=== PATIENT | female | born 1945 | race Caucasian/White ===

== ENCOUNTER → 2016-05-16 | Outpatient (CLI) | payer MEDICARE, MEDICAID ==
[~2016-05-16] MED LIST: ACHD5005 PO; ALPR0.5T PO; AMLO5TAB2 PO; CPR500T PO; DEXL60CA PO; LISI1TAB6 PO; LORA10TA7 PO; METR500T PO; OXYC-471 PO; PANT40TA3 PO; PRED10TA22 PO; RT-ALBUINH IH; UMEC1BLS IH; [UNRECOGNIZED DRUG - OTHER] PO
[2016-05-16 17:06] LABS: BASOPHILS % (AUTO) 1 % (0-10); EOSINOPHILS # (AUTO) 0.3 10^3/uL (0.0-0.3); EOSINOPHILS % (AUTO) 4 % (0-10); LYMPHOCYTES # (AUTO) 2.2 X 10^3 (1.0-4.0); LYMPHOCYTES % (AUTO) 31 % (12-44); MEAN CORPUSCULAR HEMOGLOBIN 30 PG (25-34); MEAN CORPUSCULAR HGB CONC 32 G/DL (32-36); MEAN CORPUSCULAR VOLUME 93 FL (80-99); MEAN PLATELET VOLUME 10.2 FL (7.4-10.4); MONOCYTES # (AUTO) 0.8 X 10^3 (0.0-1.0); MONOCYTES % (AUTO) 11 % (0-12); NEUTROPHILS # (AUTO) 3.9 X 10^3 (1.8-7.8); NEUTROPHILS % (AUTO) 54 % (42-75); PLATELET COUNT 213 10^3/uL (130-400); RED BLOOD COUNT 3.89 10^6/uL (4.35-5.85); RED CELL DISTRIBUTION WIDTH 15.8 % (10.0-14.5); WHITE BLOOD COUNT 7.1 10^3/uL (4.3-11.0)
[2016-05-16 17:26] LABS: ALANINE AMINOTRANSFERASE 38 U/L (0-55); ALBUMIN 3.8 G/DL (3.2-4.5); ANION GAP 9 MMOL/L (5-14); ASPARTATE AMINO TRANSFERASE 31 U/L (5-34); BILIRUBIN,TOTAL 0.3 MG/DL (0.1-1.0); BLOOD UREA NITROGEN 13 MG/DL (7-18); BUN/CREATININE RATIO 17; CALCIUM 8.8 MG/DL (8.5-10.1); CARBON DIOXIDE 31 MMOL/L (21-32); CHLORIDE 97 MMOL/L (98-107); CHOLESTEROL 231 MG/DL (< 200); CREATININE SERUM 0.77 MG/DL (0.60-1.30); DIRECT LDL 146 MG/DL (1-129); GFR ESTIMATED > 60; GLUCOSE 103 MG/DL (70-105); SODIUM 137 MMOL/L (135-145); TOTAL PROTEIN 6.4 G/DL (6.4-8.2); TRIGLYCERIDES 277 MG/DL (<150); VLDL CHOLESTEROL 55 MG/DL (5-40)
== END ==
LOC: HH 15:15
PROVIDERS: ATTEND Family Medicine
DX: E78.5 Hyperlipidemia, unspecified (principal); I50.9 Heart failure, unspecified; K57.92 Diverticulitis of intestine, part unspecified, without perforation or abscess without bleeding
CPT/HCPCS: 80053; 80061; 83880; 85025

== ENCOUNTER → 2016-06-15 | Outpatient (CLI) | payer MEDICARE, MEDICAID ==
--- NOTE | 2016-06-15 16:47 | Diagnostic Imaging Report ---
PA and lateral views of the chest. INDICATION: Pneumonia. COMPARISON: 04/27/2016. FINDINGS: The lungs are hyperinflated. No focal consolidation. There is cardiomegaly with interstitial thickening which may relate to minimal vascular congestion. No effusion or pneumothorax. The mediastinum and alberto appear unremarkable. No significant change from 04/27/2016. IMPRESSION: COPD. Cardiomegaly with prominent interstitial markings similar to 04/27/2016 exam, which may relate to mild vascular congestion. Dictated by: Dictated on workstation # [id number]
== END ==
LOC: RAD 10:43
PROVIDERS: ATTEND Nurse Practitioner Family
DX: J18.9 Pneumonia, unspecified organism (principal); J96.20 Acute and chronic respiratory failure, unspecified whether with hypoxia or hypercapnia; F17.201 Nicotine dependence, unspecified, in remission
CPT/HCPCS: 71020

== ENCOUNTER → 2016-07-04 | Outpatient (CLI) | payer MEDICARE, MEDICAID ==
[~2016-07-04] MED LIST changes: +RT-ALBUTEROL SULF 2.5 MG/3 ML PRE-MIX VIAL INH ONE
== END ==
LOC: RT 09:07
PROVIDERS: ATTEND Nurse Practitioner Family
DX: J45.909 Unspecified asthma, uncomplicated (principal); J96.20 Acute and chronic respiratory failure, unspecified whether with hypoxia or hypercapnia
CPT/HCPCS: 94060; 94640; 94726; 94729

== ENCOUNTER → 2017-01-04 | Outpatient (CLI) | payer MEDICARE, MEDICAID ==
[~2017-01-04] MED LIST changes: -RT-ALBUTEROL SULF 2.5 MG/3 ML PRE-MIX VIAL INH ONE
[2017-01-04 16:25] LABS: ALANINE AMINOTRANSFERASE 27 U/L (0-55); ALBUMIN 3.8 GM/DL (3.2-4.5); ANION GAP 11 MMOL/L (5-14); ASPARTATE AMINO TRANSFERASE 23 U/L (5-34); BILIRUBIN,TOTAL 0.2 MG/DL (0.1-1.0); BLOOD UREA NITROGEN 13 MG/DL (7-18); BUN/CREATININE RATIO 17; CALCIUM 9.1 MG/DL (8.5-10.1); CARBON DIOXIDE 30 MMOL/L (21-32); CHLORIDE 101 MMOL/L (98-107); CREATININE SERUM 0.78 MG/DL (0.60-1.30); GFR ESTIMATED > 60; GLUCOSE 95 MG/DL (70-105); POTASSIUM 3.6 MMOL/L (3.6-5.0); SODIUM 142 MMOL/L (135-145); TOTAL PROTEIN 6.5 GM/DL (6.4-8.2)
== END ==
LOC: HH 15:54
PROVIDERS: ATTEND Family Medicine
DX: E11.9 Type 2 diabetes mellitus without complications (principal)
CPT/HCPCS: 80053

== ENCOUNTER 2018-01-13 10:30 | Emergency (ER) | payer MEDICARE, MEDICAID ==
[~2018-01-13] VITALS: Ht 162.6 cm; Wt 101.2 kg
[~2018-01-13 10:30] MED LIST changes: -AMLO5TAB2 PO; +AMLO5TAB7 PO
--- OUTSIDE RECORDS SUMMARY | 2018-01-13 10:53 | XMS REPORT | CCD ---
Author Author MAURO NUÑEZ Unknown Address [address] [facility] [address] [place] [address] Care Team Providers Care Reconciliation Clerk Name Role Phone [facility] ARNOLDO DO Attphys ASTUDILLO, BRITTANIE DO Prisurg G., EDU NASST H., ARTEMIO NASST G., RUDDY NASST H., EZEQUIEL NASST D., CHANDA T NASST A., MAGALYS NASST F., JAYDA NASST S., BERNARDINO NASST C., AN L NASST L., KAREL H NASST R., ISREAL Moreno NASST B., KURTIS NASST Allergies Allergy Code Allergy Type Reaction Status [facility] [id number] Drug allergy OTHER; VOMITTING Active Active Medications Medication Code Dose Units Frequency Route Modification Start Date/Time Albuterol 0.09MG/Actuation Inhalation Aerosol Powder 02706645741 1 EACH NEEDED INHALATION 03/24/2016 13: 22 Prescription Detail 1 EACH INHALATION NEEDED Dexilant 60MG Oral Capsule, Delayed Release [id number] 60 MILLIGRAMS DAILY ORAL 03/24/2016 13:22 Prescription Detail 60 MILLIGRAMS ORAL DAILY diazePAM 5MG Oral Tablet 718413 5 MILLIGRAMS NEEDED EVERY 12 H ORAL 03/24/2016 13:22 Prescription Detail 5 MILLIGRAMS ORAL NEEDED EVERY 12 H Ipratropium [place]-Albuterol Sulfate 0.5MG/3ML-3MG/3ML Inhalation Solution 2618541 1 EACH NEEDED INHALATION 03/24/2016 13:22 Prescription Detail 1 EACH INHALATION NEEDED Lisinopril/hydroCHLOROthiazide 10MG-12.5MG Oral Tablet 652517 1 EACH DAILY ORAL 03/24/2016 13:22 Prescription Detail 1 EACH ORAL DAILY Percocet 5MG-325MG Oral Tablet 9630101 1 EACH NEEDED EVERY 6 HR ORAL 03/24/2016 13:22 Prescription Detail 1 EACH ORAL NEEDED EVERY 6 HR Azithromycin 250MG Oral Tablet 437124 1 TABLET DAILY BY MOUTH 03/24/2016 09:57 Prescription Detail 1 TABLET BY MOUTH DAILY x5 days predniSONE 20MG Oral Tablet 231383 40 MILLIGRAMS DAILY BY MOUTH 03/24/2016 09:57 Prescription Detail 40 MILLIGRAMS BY MOUTH DAILY taper, 40 day 1, 30 day 2, 20, 10, then stop Problems Problem Code Start Date Resolved Date Status Respiratory failure with hypoxia 428376508 03/22/2016 Active Right middle lobe pneumonia 570323353 03/22/2016 Active Syncopes 720692389 03/22/2016 Active Procedures Procedure Code Procedure Type Date US CAROTID DUPLEX COMP/CHAR 55810353 SNOMED CT 03/22/2016 US ECHO 2D COMP WITH DOPP AND COLOR 75468887 SNOMED CT CX CHEST [address] 03/22/[address] 03/24/2016 COMPREHENSIVE METABOLIC PANEL 822684090 SNOMED CT 2015 CBC W/ AUTO DIFF (RFLX MAN DIFF IF IND) 0684667 SNOMED CT 03/24/2016 LACTIC ACID 9984355 SNOMED [address] 03/22/[address] 03/23/2016 LIPID PANEL 27331155 SNOM[address] 03/23/[address] 03/23/2016 COMPREHENSIVE METABOLIC PANEL 499490568 SNOMED CT 2015 CBC W/ AUTO DIFF (RFLX MAN DIFF IF IND) 3743360 SNOMED CT 03/23/2016 LACTIC ACID 1822386 SNOMED [address] 03/22/2016 LACTIC AC[address] 7480786 [address] 03/22/2016 CULTURE BLOOD 07391069 SNOMED CT 03/22/2016 C REACTIVE PROTEIN 70675387 SNOMED CT 03/22/[address] 03/22/2016 UA ROUTINE C&S IF IND 757410799 SNOMED CT 03/22/2016 TROPONIN-I ADV 793165093 SNOMED CT 03/22/[address] 03/22/2016 COMPREHENSIVE METABOLIC PANEL 748597687 SNOMED CT 2015 CBC W/ AUTO DIFF (RFLX MAN DIFF IF IND) 9322429 SNOMED CT 03/22/2016 PT EVALUATION 199347194 SNOMED CT 03/23/2016 HOME O2 945068470 SNOM[address] 03/24/2016 ^CBC W/AUTO DIFF 4782813 SNOMED CT 03/24/2016 ^CBC W/AUTO DIFF 6220834 SNOMED CT 03/23/2016 ^UA WITH MICRO 709750979 SNOMED CT 03/22/2016 ^CBC W/AUTO DIFF 9153995 SNOMED CT 03/22/2016 PULSE OX EXERCISE 563505046 SNOMED CT 03/24/2016 BAN AERO ECLIPSE TREATMENT 02931333 SNOMED CT 03/24/2016 BAN AERO ECLIPSE TREATMENT 59669558 SNOMED CT 03/24/2016 BAN AERO ECLIPSE TREATMENT 64099085 SNOMED CT 03/23/2016 BAN AERO ECLIPSE TREATMENT 88284107 SNOMED CT 03/23/2016 BAN AERO ECLIPSE TREATMENT 00145353 SNOMED CT 03/23/2016 BAN AERO ECLIPSE TREATMENT 71588565 SNOMED CT 03/23/2016 BAN AERO ECLIPSE TREATMENT 00677001 SNOMED CT 03/22/2016 BAN AERO ECLIPSE TREATMENT 45269389 SNOMED CT 03/22/2016 BAN AERO ECLIPSE TREATMENT 54345710 SNOMED CT 03/22/2016 Results COMPREHENSIVE METABOLIC PANEL - Collect Date/Time: 03/24/2016 06:55 Test Name Code Test Result Test Units Test Ref Range GLUCOSE 2345-7 90 MG/DL L=70 H=100 SODIUM 2951-2 146 MEQ/L L=135 H=148 POTASSIUM 2823-3 3.9 MEQ/L L=3.5 H=5.3 CHLORIDE 2075-0 103 MEQ/L L=96 H=110 CO2 2028-9 31 MEQ/L L=22 H=29 BUN 3094-0 15 MG/DL L=8 H=22 CREATININE 2160-0 0.8 MG/DL L=0.6 H=1.6 SGOT/AST 1920-8 14 IU/L L=10 H=40 SGPT/ALT 1742-6 16 IU/L L=8 H=54 ALK PHOS 6768-6 64 IU/L L=35 H=115 TOTAL PROTEIN 2885-2 6.1 G/DL L=5.5 H=8.5 ALBUMIN 1751-7 3.6 G/DL L=3.1 H=5.4 TOTAL BILI 1975-2 0.2 MG/DL L=0.0 H=1.5 CALCIUM 10706-6 8.5 MG/DL L=8.2 H=10.6 AGE 58894-6 70 yrs GFR NonAA 08593-5 71 GFR AA 77195-1 86 eGFR 34030-9 >60 N/A eGFR AA* 97946-6 >60 N/A COMPREHENSIVE METABOLIC PANEL - Collect Date/Time: 03/23/2016 06:05 Test Name Code Test Result Test Units Test Ref Range GLUCOSE 2345-7 117 MG/DL L=70 H=100 SODIUM 2951-2 143 MEQ/L L=135 H=148 POTASSIUM 2823-3 3.6 MEQ/L L=3.5 H=5.3 CHLORIDE 2075-0 102 MEQ/L L=96 H=110 CO2 2028-9 30 MEQ/L L=22 H=29 BUN 3094-0 16 MG/DL L=8 H=22 CREATININE 2160-0 0.8 MG/DL L=0.6 H=1.6 SGOT/AST 1920-8 16 IU/L L=10 H=40 SGPT/ALT 1742-6 16 IU/L L=8 H=54 ALK PHOS 6768-6 70 IU/L L=35 H=115 TOTAL PROTEIN 2885-2 6.0 G/DL L=5.5 H=8.5 ALBUMIN 1751-7 3.5 G/DL L=3.1 H=5.4 TOTAL BILI 1975-2 0.2 MG/DL L=0.0 H=1.5 CALCIUM 66789-4 8.6 MG/DL L=8.2 H=10.6 AGE 42246-2 70 yrs GFR NonAA 82398-6 71 [place]FR [place] 675[address]-0 86 eGFR 08817-2 >60 N/A eGFR AA* 20895-6 >60 N/A COMPREHENSIVE METABOLIC PANEL - Collect Date/Time: 03/22/2016 11:05 Test Name Code Test Result Test Units Test Ref Range GLUCOSE 2345-7 114 MG/DL L=70 H=100 SODIUM 2951-2 140 MEQ/L L=135 H=148 POTASSIUM 2823-3 3.6 MEQ/L L=3.5 H=5.3 CHLORIDE 2075-0 99 MEQ/L L=96 H=110 CO2 2028-9 28 MEQ/L L=22 H=29 BUN 3094-0 12 MG/DL L=8 H=22 CREATININE 2160-0 0.8 MG/DL L=0.6 H=1.6 SGOT/AST 1920-8 23 IU/L L=10 H=40 SGPT/ALT 1742-6 21 IU/L L=8 H=54 ALK PHOS 6768-6 88 IU/L L=35 H=115 TOTAL PROTEIN 2885-2 7.1 G/DL L=5.5 H=8.5 ALBUMIN 1751-7 4.2 G/DL L=3.1 H=5.4 TOTAL BILI 1975-2 0.3 MG/DL L=0.0 H=1.5 CALCIUM 93679-6 9.1 MG/DL L=8.2 H=10.6 AGE 70 yrs GFR NonAA 71 GFR AA 86 eGFR >60 N/A eGFR AA* >60 N/A LIPID PANEL - Collect Date/Time: 03/23/2016 06:05 Test Name Code Test Result Test Units Test Ref Range TRIGLYCERIDES 3043-7 161 MG/DL L=0 H=135 CHOLESTEROL 2093-3 214 MG/DL L=0 H=199 HDL 2085-9 39 MG/DL L=29 H=89 TOT CHOL/HDL 03107-3 5.5 L=0.0 H=5.0 LDL (CALC) 31341-8 143 MG/DL L=0 H=129 MAGNESIUM - Collect Date/Time: 03/24/2016 06:55 Test Name Code Test Result Test Units Test Ref Range MAGNESIUM 52572-8 2.2 MG/DL L=1.7 H=2.8 MAGNESIUM - Collect Date/Time: 03/23/2016 06:05 Test Name Code Test Result Test Units Test Ref Range MAGNESIUM 88882-2 2.1 MG/DL L=1.7 H=2.8 MAGNESIUM - Collect Date/Time: 03/22/2016 11:05 Test Name Code Test Result Test Units Test Ref Range MAGNESIUM 08957-4 2.2 MG/DL L=1.7 H=2.8 CBC W/ AUTO DIFF (RFLX MAN DIFF IF IND) - Collect Date/Time: 03/24/2016 06:55 Test Name Code Test Result Test Units Test Ref Range WBC 08810-0 12.5 TH/CMM L=4.5 H=10.8 RBC 789-8 4.20 ML/CMM L=4.20 H=5.40 HGB 718-7 11.9 G/DL L=12.0 H=16.0 HCT 4544-3 39.5 % L=37.0 H=47.0 MCV 13461-8 94 FL L=81 H=99 MCH 37037-7 28.3 PG L=27.0 H=33.0 MCHC 30203-4 30.1 G/DL L=31.0 H=36[place] [address]-9 51 FL L=36 H=50 [place] [address]85-6 14.9 % L=0.0 H=14.8 MPV 26685-3 9.4 FL L=9.3 H=12.5 PLT 777-3 282 TH/CMM L=130 H=440 NRBC# 96677-8 0.00 TH/CMM L=0.00 H=0.00 NRBC% 21439-8 0.0 /100WBC L=0.0 H=2.0 %NEUT 53050-8 70.0 % %LYMP 41842-9 20.0 % %MONO 92861-3 7.7 % %EOS 45624-4 0.8 % %BASO 26280-4 0.5 % #NEUT 18161-3 8.74 TH/CMM L=2.10 H=8.20 #LYMP 31083-0 2.50 TH/CMM L=0.90 H=5.20 #MONO 81926-3 0.96 TH/CMM L=0.16 H=1.00 #EOS 48399-2 0.10 TH/CMM L=0.00 H=0.80 #BASO 38879-9 0.06 TH/CMM L=0.00 H=0.20 MANUAL DIFF 87021-1 NOT IND N/A CBC W/ AUTO DIFF (RFLX MAN DIFF IF IND) - Collect Date/Time: 03/23/2016 06:05 Test Name Code Test Result Test Units Test Ref Range WBC 75795-7 11.5 TH/CMM L=4.5 H=10.8 RBC 789-8 4.12 ML/CMM L=4.20 H=5.40 HGB 718-7 11.8 G/DL L=12.0 H=16.0 HCT 4544-3 38.4 % L=37.0 H=47.0 MCV 30908-3 93 FL L=81 H=99 MCH 26878-4 28.6 PG L=27.0 H=33.0 MCHC 36347-6 30.7 G/DL L=31.0 H=36.0 [place] [address]-4 49 FL L=36 H=50 [place] [address]-9 14.4 % L=0.0 H=14.8 MPV 11059-0 9.6 FL L=9.3 H=12.5 PLT 777-3 276 TH/CMM L=130 H=440 NRBC# 36640-8 0.00 TH/CMM L=0.00 H=0.00 NRBC% 75913-5 0.0 /100WBC L=0.0 H=2.0 %NEUT 47044-4 78.7 % %LYMP 22565-8 13.6 % %MONO 24366-5 6.5 % %EOS 74063-5 0.1 % %BASO 61103-2 0.4 % #NEUT 79358-2 9.01 TH/CMM L=2.10 H=8.20 #LYMP 21017-0 1.56 TH/CMM L=0.90 H=5.20 #MONO 54536-3 0.74 TH/CMM L=0.16 H=1.00 #EOS 40042-7 0.01 TH/CMM L=0.00 H=0.80 #BASO 30343-7 0.05 TH/CMM L=0.00 H=0.20 MANUAL DIFF 31764-1 NOT IND N/A CBC W/ AUTO DIFF (RFLX MAN DIFF IF IND) - Collect Date/Time: 03/22/2016 11:05 Test Name Code Test Result Test Units Test Ref Range WBC 73992-6 10.8 TH/CMM L=4.5 H=10.8 RBC 789-8 4.82 ML/CMM L=4.20 H=5.40 HGB 718-7 13.7 G/DL L=12.0 H=16.0 HCT 4544-3 44.2 % L=37.0 H=47.0 MCV 92 FL L=81 H=99 MCH 28.4 PG L=27.0 H=33.0 MCHC 31.0 G/DL L=31.0 H=36.0 RDW SD 48 FL L=36 H=50 RDW CV 14.3 % L=0.0 H=14.8 MPV 9.2 FL L=9.3 H=12.5 PLT 777-3 295 TH/CMM L=130 H=440 NRBC# 0.00 TH/CMM L=0.00 H=0.00 NRBC% 0.0 /100WBC L=0.0 H=2.0 %NEUT 72.1 % %LYMP 18.3 % %MONO 6.9 % %EOS 1.4 % %BASO 0.8 % #NEUT 7.78 TH/CMM L=2.10 H=8.20 #LYMP 1.98 TH/CMM L=0.90 H=5.20 #MONO 0.75 TH/CMM L=0.16 H=1.00 #EOS 0.15 TH/CMM L=0.00 H=0.80 #BASO 0.09 TH/CMM L=0.00 H=0.20 MANUAL DIFF NOT IND N/A UA ROUTINE C&S IF IND - Collect Date/Time: 03/22/2016 11:20 Test Name Code Test Result Test Units Test Ref Range COLOR YELLOW N/A NL: YELLOW APPEARANCE CLEAR N/A NL: CLEAR SPEC GRAV 1.015 N/A NL: 1.002 - 1.022 pH 7.0 N/A NL: 5 - 9 PROTEIN NEGATIVE N/A NL: NEGATIVE mg/dl GLUCOSE NEGATIVE N/A NL: NEGATIVE mg/dl KETONE NEGATIVE N/A NL: NEGATIVE mg/dl BILIRUBIN NEGATIVE N/A NL: NEGATIVE BLOOD TRACE-LYSED N/A NL: NEGATIVE NITRITE NEGATIVE N/A NL: NEGATIVE LEUK SCREEN NEGATIVE N/A NL: NEGATIVE MICRO INDICATED? SEE BELOW N/A WBC/HPF NEGATIVE N/A NL: NEGATIVE RBC/HPF 0-5 N/A NL: NEGATIVE CASTS/LPF NEGATIVE N/A NL: NEGATIVE CRYSTALS NEGATIVE N/A NL: NEGATIVE MUCOUS THRDS NEGATIVE N/A NL: NEGATIVE BACTERIA NEGATIVE N/A NL: NEGATIVE EPITH CELLS 1+ SQUAMOUS N/A NL: NEGATIVE TRICHOMONAS NEGATIVE N/A NL: NEGATIVE YEAST NEGATIVE N/A NL: NEGATIVE CULT SET UP? NO N/A BNP - Collect Date/Time: 03/22/2016 11:05 Test Name Code Test Result Test Units Test Ref Range BNP 20780-2 15 PG/ML L=0 H=100 C REACTIVE PROTEIN - Collect Date/Time: 03/22/2016 11:05 Test Name Code Test Result Test Units Test Ref Range C REACTIVE PROTEIN 1988-5 3.5 MG/DL L=0.0 H= 1.0 TROPONIN-I ADV - Collect Date/Time: 03/22/2016 11:05 Test Name Code Test Result Test Units [place] [address]-7 <0.04 ng/mL L=0.04 H= 0.40 TSH - Collect Date/Time: 03/23/2016 06:05 Test Name Code Test Result Test Units Test Ref Range TSH 48046-0 0.99 mIU/L L=0.35 H=4.94 LACTIC ACID - Collect Date/Time: 03/22/2016 23:00 Test Name Code Test Result Test Units Test Ref Range LACTIC ACID 2524-7 3.2 mmol/L L=0.5 H=1.6 LACTIC ACID - Collect Date/Time: 03/22/2016 17:00 Test Name Code Test Result Test Units Test Ref Range LACTIC ACID 2524-7 1.3 mmol/L L=0.5 H=1.6 LACTIC ACID - Collect Date/Time: 03/22/2016 11:05 Test Name Code Test Result Test Units Test Ref Range LACTIC ACID 2524-7 2.1 mmol/L L=0.5 H=1.6 Function Status Unknown or Not Available. History of Immunizations Immunization Code Date pneumococcal polysaccharide PPV23 33 03/24/2016 influenza, injectable, quadrivalent, preservative free 150 2015 Plan of Treatment Unknown or Not Available. Social History Smoking Status Code Start Date End Date Former smoker 6738255 Vital Signs Vital Sign Value Unit Date/Time Recent/Initial? Weight Measured 206.8 [lb_av] 03/22/2016 13:10 Initial VS Height 65 [in_i] 03/22/2016 13:10 Initial VS BMI (Body Mass Index) 34.41 kg/m2 03/22/2016 13:10 Initial VS BSA (Body Surface Area) 2.07 m2 03/22/2016 13:10 Initial VS BP Systolic 149 mm[Hg] 03/22/2016 13:10 Initial VS BP Diastolic 81 mm[Hg] 03/22/2016 13:10 Initial VS Respiratory Rate 22 /min 03/22/2016 13:10 Initial VS Heart Rate 89 /min 03/22/2016 13:10 Initial VS O2 % BldC Oximetry 96 % 03/22/2016 13:10 Initial VS Body Temperature 97.1 [degF] 03/22/2016 13:10 Initial VS BP Systolic 167 mm[Hg] 03/24/2016 11:46 Most Recent VS BP Diastolic 96 mm[Hg] 03/24/2016 11:46 Most Recent VS Respiratory Rate 18 /min 03/24/2016 11:46 Most Recent VS Heart Rate 92 /min 03/24/2016 11:46 Most Recent VS O2 % BldC Oximetry 90 % 03/24/2016 11:46 Most Recent VS Body Temperature 96.9 [degF] 03/24/2016 11:46 Most Recent VS Function Status Unknown or Not Available. Goals Unknown or Not Available. ASSESSMENTS Unknown or Not Available. Health Concerns Section Unknown or Not Available.
--- OUTSIDE RECORDS SUMMARY | 2018-01-13 10:53 | XMS REPORT | CCD ---
Author Author MAURO NUÑEZ Unknown Address [address] [facility] [address] [place] [address] Care Team Providers Care Electronic Scale Subassembler Name Role Phone ANGELA AGUIAR DO Attphys Allergies Allergy Code Allergy Type Reaction Status [facility] 469297 Drug allergy OTHER; VOMITTING Active Active Medications Medication Code Dose Units Frequency Route Modification Start Date/Time Albuterol 0.09MG/Actuation Inhalation Aerosol Powder 129781 1 EACH NEEDED INHALATION 03/24/2016 13:22 Prescription Detail 1 EACH INHALATION NEEDED Dexilant 60MG Oral Capsule, Delayed Release 112541 60 MILLIGRAMS DAILY ORAL 03/24/2016 13:22 Prescription Detail 60 MILLIGRAMS ORAL DAILY diazePAM 5MG Oral Tablet 500517 5 MILLIGRAMS NEEDED EVERY 12 H ORAL 03/24/2016 13:22 Prescription Detail 5 MILLIGRAMS ORAL NEEDED EVERY 12 H Ipratropium [place]-Albuterol Sulfate 0.5MG/3ML-3MG/3ML Inhalation Solution 8539790 1 EACH NEEDED INHALATION 03/24/2016 13:22 Prescription Detail 1 EACH INHALATION NEEDED Lisinopril/hydroCHLOROthiazide 10MG-12.5MG Oral Tablet 267549 1 EACH DAILY ORAL 03/24/2016 13:22 Prescription Detail 1 EACH ORAL DAILY Percocet 5MG-325MG Oral Tablet 3389215 1 EACH NEEDED EVERY 6 HR ORAL 03/24/2016 13:22 Prescription Detail 1 EACH ORAL NEEDED EVERY 6 HR Azithromycin 250MG Oral Tablet 528656 1 TABLET DAILY BY MOUTH 03/24/2016 09:57 Prescription Detail 1 TABLET BY MOUTH DAILY x5 days predniSONE 20MG Oral Tablet 180301 40 MILLIGRAMS DAILY BY MOUTH 03/24/2016 09:57 Prescription Detail 40 MILLIGRAMS BY MOUTH DAILY taper, 40 day 1, 30 day 2, 20, 10, then stop Problems Problem Code Start Date Resolved Date Status Respiratory failure with hypoxia 409862142 03/22/2016 Active Right middle lobe pneumonia 674648121 03/22/2016 Active Syncopes 361990128 03/22/2016 Active Procedures Procedure Code Procedure Type Date CX CHEST 1 VIEW 308159349 [facility] 12/10/2016 BEDSIDE GLUCOSE 13759818 [facility] 12/10/2016 PHOSPHORUS 6328034 [facility] 12/10/2016 MAGNESIUM 863173833 [facility] 12/10/2016 LIPASE 40627108 [facility] 12/10/2016 CPK 118513593 [facility] 12/10/2016 LACTIC ACID 1302074 [facility] 12/10/2016 UA ROUTINE C&S IF IND [id number] [facility] 12/10/2016 TROPONIN-I ADV [id number] [facility] 12/10/2016 BNP 542387377 [facility] 12/10/2016 COMPREHENSIVE METABOLIC PANEL 624838484 [facility] 2016 CBC W/ AUTO DIFF (RFLX MAN DIFF IF IND) 9240395 [facility] 12/10/2016 ^CBC W/ MANUAL DIFF [id number] [facility] 12/10/2016 ^UA AUTO DIPSTICK ONLY [id number] [facility] 12/10/2016 Results BEDSIDE GLUCOSE - Collect Date/Time: 12/10/2016 13:55 Test Name Code Test Result Test Units Test Ref Range GLUCOSE POCT 228 MG/DL L=70 H=100 COMPREHENSIVE METABOLIC PANEL - Collect Date/Time: 12/10/2016 10:30 Test Name Code Test Result Test Units Test Ref Range GLUCOSE 2345-7 112 MG/DL L=70 H=100 SODIUM 2951-2 128 MEQ/L L=135 H=148 POTASSIUM 2823-3 7.2 MEQ/L L=3.5 H=5.3 CHLORIDE 2075-0 96 MEQ/L L=96 H=110 CO2 2028-9 20 MEQ/L L=22 H=29 BUN 3094-0 110 MG/DL L=8 H=22 CREATININE 2160-0 6.9 MG/DL L=0.6 H=1.6 SGOT/AST 1920-8 11 IU/L L=10 H=40 SGPT/ALT 1742-6 10 IU/L L=8 H=54 ALK PHOS 6768-6 63 IU/L L=35 H=115 TOTAL PROTEIN 2885-2 6.5 G/DL L=5.5 H=8.5 ALBUMIN 1751-7 3.8 G/DL L=3.1 H=5.4 TOTAL BILI 1975-2 0.4 MG/DL L=0.0 H=1.5 CALCIUM 95357-1 8.8 MG/DL L=8.2 H=10.6 AGE 71 yrs GFR NonAA 6 GFR AA 7 eGFR 6 mL/min/1.7 eGFR AA* 7 mL/min/1.7 CPK - Collect Date/Time: 12/10/2016 10:30 Test Name Code Test Result Test Units Test Ref Range CPK 2157-6 49 IU/L L=0 H=235 LIPASE - Collect Date/Time: 12/10/2016 10:30 Test Name Code Test Result Test Units Test Ref Range LIPASE 3040-3 20 U/L L=8 H=78 PHOSPHORUS - Collect Date/Time: 12/10/2016 10:30 Test Name Code Test Result Test Units Test Ref Range PHOSPHORUS 2777-1 6.0 MG/DL L=2.5 H=4.5 CBC W/ AUTO DIFF (RFLX MAN DIFF IF IND) - Collect Date/Time: 12/10/2016 10:30 Test Name Code Test Result Test Units Test Ref Range WBC 77992-7 15.3 TH/CMM L=4.5 H=10.8 RBC 789-8 3.25 ML/CMM L=4.20 H=5.40 HGB 718-7 9.5 G/DL L=12.0 H=16.0 HCT 4544-3 30.0 % L=37.0 H=47.0 MCV 92 FL L=81 H=99 MCH 29.2 PG L=27.0 H=33.0 MCHC 31.7 G/DL L=31.0 H=36.0 RDW SD 51 FL L=36 H=50 RDW CV 15.1 % L=0.0 H=14.8 MPV 8.9 FL L=9.3 H=12.5 PLT 777-3 244 TH/CMM L=130 H=440 NRBC# 0.00 TH/CMM L=0.00 H=0.00 NRBC% 0.0 /100WBC L=0.0 H=2.0 %NEUT 75.4 % %LYMP 11.8 % %MONO 8.1 % %EOS 0.3 % %BASO 0.4 % #NEUT 11.54 TH/CMM L=2.10 H=8.20 #LYMP 1.81 TH/CMM L=0.90 H=5.20 #MONO 1.24 TH/CMM L=0.16 H=1.00 #EOS 0.05 TH/CMM L=0.00 H=0.80 #BASO 0.06 TH/CMM L=0.00 H=0.20 SEGS 82 % BANDS 0 % LYMPHS 12 % MONOS 6 % MANUAL DIFF SEE BELOW N/A UA ROUTINE C&S IF IND - Collect Date/Time: 12/10/2016 10:30 Test Name Code Test Result Test Units Test Ref Range COLOR YELLOW N/A NL: YELLOW APPEARANCE CLEAR N/A NL: CLEAR SPEC GRAV 1.010 N/A NL: 1.002 - 1.022 pH 5.5 N/A NL: 5 - 9 PROTEIN NEGATIVE N/A NL: NEGATIVE mg/dl GLUCOSE NEGATIVE N/A NL: NEGATIVE mg/dl KETONE NEGATIVE N/A NL: NEGATIVE mg/dl BILIRUBIN NEGATIVE N/A NL: NEGATIVE BLOOD NEGATIVE N/A NL: NEGATIVE NITRITE NEGATIVE N/A NL: NEGATIVE LEUK SCREEN NEGATIVE N/A NL: NEGATIVE MICRO INDICATED? NOT INDICATED N/A BNP - Collect Date/Time: 12/10/2016 10:30 Test Name Code Test Result Test Units Test Ref Range BNP 00583-0 42 PG/ML L=0 H=100 TROPONIN-I ADV - Collect Date/Time: 12/10/2016 10:30 Test Name Code Test Result Test Units [place] [address]-0 <0.04 ng/mL L=0.04 H= 0.40 LACTIC ACID - Collect Date/Time: 12/10/2016 10:30 Test Name Code Test Result Test Units Test Ref Range LACTIC ACID 2524-7 1.0 mmol/L L=0.5 H=1.6 MAGNESIUM - Collect Date/Time: 12/10/2016 10:30 Test Name Code Test Result Test Units Test Ref Range MAGNESIUM 93804-0 2.6 MG/DL L=1.7 H=2.8 Function Status Unknown or Not Available. History of Immunizations Immunization Code Date pneumococcal polysaccharide [id number] 33 03/24/2016 influenza, injectable, quadrivalent, preservative free 150 2015 Plan of Treatment Unknown or Not Available. Social History Smoking Status Code Start Date End Date Former smoker [id number] Vital Signs Unknown or Not Available. Function Status Unknown or Not Available. Goals Unknown or Not Available. ASSESSMENTS Unknown or Not Available. Health Concerns Section Unknown or Not Available.
--- OUTSIDE RECORDS SUMMARY | 2018-01-13 10:56 | XMS REPORT ---
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 Name Role Phone ELOY AHUMADA PCP ELOY AHUMADA PreferredProvider Allergies and Adverse Reactions Name Reaction Notes Depo-Medrol Pain, muscle spasms, insomnia Decadron Pain, Muscle spasms, insomnia Plan of Treatment Planned Activity Comments Planned Date Planned Time Plan/Goal BNP 05/15/2016 12:00 AM CMP 10/18/2016 12:00 AM cervical pain 06/15/2015 11:00 AM Medications Active Name Start Date Estimated Completion Date SIG Comments pantoprazole 40 mg oral tablet,delayed release (DR/EC) 03/05/2014 take 1 tablet (40 mg) by oral route once daily ipratropium-albuterol 0.5 mg-3 mg(2.5 mg base)/3 mL inhalation solution for nebulization 05/11/2014 inhale 3 milliliters by nebulization route 4 times per day and as needed, up to 6 doses per day pantoprazole 40 mg oral tablet,delayed release (DR/EC) 10/24/2015 TAKE 1 TABLET BY MOUTH ONCE DAILY lisinopril-hydrochlorothiazide 10-12.5 mg oral tablet 03/26/2016 take 1 tablet by oral route once daily for 30 days potassium chloride 10 mEq oral tablet,ER particles/crystals 10/10/2016 TAKE ONE TABLET BY MOUTH DAILY potassium chloride 10 mEq oral tablet,ER particles/crystals 10/10/2016 TAKE ONE TABLET BY MOUTH DAILY Percocet 5-325 mg oral tablet 11/01/2016 take 1 tablet by oral route every 6 hours as needed Sinemet 10-100 mg oral tablet 11/05/2016 take 1 tablet by oral route 3 times per day for 30 days furosemide 20 mg oral tablet 11/28/2016 As directed furosemide 20 mg oral tablet 11/28/2016 As directed amoxicillin 500 mg oral capsule 07/09/2017 take 1 capsule (500 mg) by oral route 3 times per day for 10 days fluticasone 50 mcg/actuation nasal spray,suspension 07/10/2017 spray 1 - 2 sprays (50 - 100 mcg) in each nostril by intranasal route once daily as needed amlodipine 5 mg oral tablet 07/17/2017 02/12/2018 TAKE 1 TABLET BY MOUTH ONCE DAILY Symbicort 160-4.5 mcg/actuation inhalation HFA aerosol inhaler 08/19/2017 2 puff(s) inh bid,Instr:in the morning and the evening; use with spacer chamber ; rinse mouth and throat after use albuterol sulfate 2.5 mg /3 mL (0.083 %) inhalation solution for nebulization 10/02/2017 used in Small Volume Nebulizer QID PRN DX J44.9 dicyclomine 10 mg oral capsule 10/10/2017 take 1 capsule (10 mg) by oral route 4 times per day hyoscyamine sulfate 0.125 mg oral tablet 12/16/2017 01/15/2018 take 1 tablet ( 0.125 mg) by oral route 3 times per day for 30 days Xanax 0.5 mg oral tablet 01/02/2018 take 1 tablet (0.5 mg) by oral route 3 times per day Name Start Date Expiration Date SIG Comments Prevacid 30 mg oral capsule,delayed release(DR/EC) 06/12/2010 10/10/2010 take 1 capsule (30 mg) by oral route once daily before a meal for 30 days Vicodin 5-500 mg oral tablet 11/13/2010 11/13/2010 take 1 tablet by oral route every 6 hours as needed for pain Bentyl 10 mg oral capsule 11/29/2010 take 1 capsule (10 mg) by oral route 3 times per day Medrol (Jerome) 4 mg oral tablets,dose pack 08/31/2011 09/06/2011 take as directed for 6 days Celexa 20 mg oral tablet 09/11/2011 01/09/2012 take 1 tablet (20 mg) by oral route once daily for 30 days Cipro 500 mg oral tablet 09/12/2011 09/12/2011 take 1 tablet (500 mg) by oral route 2 times per day Xanax 0.5 mg oral tablet 12/13/2011 12/13/2011 take 0.5 tablet by oral route 3 times a day as needed Zithromax Z-Jerome 250 mg oral tablet 06/05/2012 06/10/2012 take 2 tablets (500 mg ) by oral route once daily for 1 day then 1 tablet (250 mg) by oral route once daily for 4 days Cipro 500 mg oral tablet 08/18/2012 take 1 tablet (500 mg) by oral route 2 times per day Crestor 10 mg oral tablet 10/13/2012 10/13/2012 take 1 tablet (10 mg) by oral route once daily at bedtime Cymbalta 30 mg oral capsule,delayed release(DR/EC) 12/02/2012 01/01/2013 take 1 capsules (30 mg) by oral route once daily Bactrim DS 800-160 mg oral tablet 06/02/2013 06/12/2013 take 1 tablet by oral route 2 times a day for 10 days Flonase 50 mcg/actuation nasal spray,suspension 06/02/2013 11/29/2013 inhale 1 spray by nasal route 2 times a day for 30 days Zithromax Z-Jerome 250 mg oral tablet 06/22/2013 take 2 tablets (500 mg) by oral route once daily for 1 day then 1 tablet (250 mg) by oral route once daily for 4 days atenolol 25 mg oral tablet 08/27/2013 11/25/2013/ BID dicyclomine 10 mg oral capsule 11/12/2013 take 1 capsule (10 mg) by oral route 3 times per day oxycodone-acetaminophen 5-325 mg oral tablet 04/05/2014 take 1 tablet by oral route every 6 hours as needed Levaquin 500 mg oral tablet 04/22/2014 take 1 tablet (500 mg) by oral route once daily for 10 days prednisone 20 mg oral tablet 07/05/2014 4x2 days 3x2 days 2x2 days 1x2 days Biaxin 500 mg oral tablet 08/16/2014 08/26/2014 take 1 tablet by oral route 2 times a day for 10 days Zithromax Z-Jerome 250 mg oral tablet 11/29/2014 12/04/2014 take 2 tablets (500 mg ) by oral route once daily for 1 day then 1 tablet (250 mg) by oral route once daily for 4 days Zithromax Z-Jerome 250 mg oral tablet 05/12/2015 05/17/2015 take 2 tablets (500 mg ) by oral route once daily for 1 day then 1 tablet (250 mg) by oral route once daily for 4 days oxybutynin chloride 5 mg oral tablet 06/17/2015 09/15/2015 take 1 tablet (5 mg ) by oral route 2 times per day for 30 days lisinopril-hydrochlorothiazide 10-12.5 mg oral tablet 09/15/2015 02/12/2016 take 1 tablet by oral route once daily for 30 days amlodipine 5 mg oral tablet 05/15/2016 11/11/2016 take 1 tablet (5 mg) by oral route once daily for 30 days Levaquin 500 mg oral tablet 06/04/2016 06/14/2016 take 1 tablet (500 mg) by oral route once daily for 10 days Sinemet 10-100 mg oral tablet 07/16/2016 10/14/2016 take 1 tablet by oral route 3 times per day for 30 days spironolactone 50 mg oral tablet 08/20/2016 11/18/2016 take 1 tablet (50 mg) by oral route once daily for 30 days Zithromax Z-Jerome 250 mg oral tablet 08/29/2016 09/03/2016 take 2 tablets (500 mg ) by oral route once daily for 1 day then 1 tablet (250 mg) by oral route once daily for 4 days amoxicillin 500 mg oral tablet 09/07/2016 09/17/2016 take 1 tablet by oral route 4 times a day for 10 days Zithromax Z-Jerome 250 mg oral tablet 12/17/2016 12/22/2016 take 2 tablets (500 mg) by oral route once daily for 1 day then 1 tablet (250 mg) by oral route once daily for 4 days Zithromax Z-Jerome 250 mg oral tablet 04/04/2017 take 2 tablets (500 mg) by oral route once daily for 1 day then 1 tablet (250 mg) by oral route once daily for 4 days Tamiflu 75 mg oral capsule 05/30/2017 take 1 capsule (75 mg) by oral route once daily for 10 days nystatin 100,000 unit/mL oral suspension 07/24/2017 07/24/2017 take 4 milliliters (400,000 unit) by oral route 4 times per day Levaquin 750 mg oral tablet 10/10/2017 10/20/2017 take 1 tablet (750 mg) by oral route once daily for 10 days Medrol (Jerome) 4 mg oral tablets,dose pack 11/01/2017 take as directed Cipro 500 mg oral tablet 12/17/2017 12/27/2017 take 1 tablet (500 mg) by oral route 2 times per day for 10 days Discontinued Name Start Date Discontinued Date SIG Comments Keflex 500 mg oral capsule 06/20/2009 04/17/2012 take 1 capsule (500 mg) by oral route every 6 hours Mobic 15 mg oral tablet 12/30/2009 04/17/2012 take 1 tablet (15 mg) by oral route once daily pantoprazole 40 mg oral tablet,delayed release (DR/EC) 11/20/2011 08/18/2012 take 1 tablet (40 mg) by oral route 2 times per day for 30 days omeprazole 20 mg oral tablet,delayed release (DR/EC) 08/18/2012 04/09/2013 take 1 tablet by oral route 2 times a day Voltaren 1 % topical gel 12/02/2013 03/06/2014 apply 2 gram to the affected area(s) by topical route 4 times per day diazepam 5 mg oral tablet 02/18/2014 03/26/2016 1/2 to 1 PO BID PRN anxiety fluticasone 50 mcg/actuation nasal spray,suspension 05/11/2014 02/26/2017 1 SPRAY IN EACH NOSTRIL TWICE DAILY Nicoderm CQ 21 mg/24 hr transdermal patch 24 hour 08/10/2014 03/27/2015 apply 1 patch (21 mg) by transdermal route once daily for 4 weeks Breo Ellipta 100-25 mcg/dose inhalation blister with device 10/17/20152016 inhale 1 puff by inhalation route once daily at the same time each day phentermine 37.5 mg oral tablet 10/11/2015 04/18/2016 1/2 po in the am promethazine-codeine 6.25-10 mg/5 mL oral syrup 12/18/2015 11/29/2016 take 5 milliliters by oral route every 4-6 hours as needed, not to exceed 30 mL in 24 hours pantoprazole 40 mg oral tablet,delayed release (DR/EC) 01/16/2016 11/29/2016 TAKE 1 TABLET BY MOUTH ONCE DAILY Ativan 1 mg oral tablet 04/17/2016 11/29/2016 take 1 tablet by oral route 3 times a day PRN anxiety Bentyl 10 mg oral capsule 05/10/2016 11/29/2016 take 1 capsule (10 mg) by oral route 4 times per day Medrol (Jerome) 4 mg oral tablets,dose pack 08/29/2016 11/29/2016 take as directed Monistat 7 2 % (100 mg)- 2 % (9 gram) vaginal comb pack,prefill appl, cream 06/06/201712/03/2017 use as directed Problem List Description Status Onset Gastroesophageal Reflux Active Anxiety disorder Active Esophageal Reflux Active Hyperlipidemia Active Diverticulitis Active Diverticulosis of colon Active 09/07/2012 Low back pain Active 03/09/2013 Osteoarthrosis, generalized, multiple sites Active 03/09/2013 Tobacco abuse Active 08/31/2013 Chronic Obstructive Pulmonary Disease Active 08/31/2013 Essential hypertension Active 03/06/2014 Chronic back pain Active 01/29/2015 Cervicalgia Active 01/29/2015 Essential hypertension Active 07/12/2015 Anxiety about health Active 07/12/2015 History of smoking at least 1 pack per day for at least 30 years Active 04/18 COPD mixed type Active 04/18/2016 Panic attacks Active 04/18/2016 Peripheral edema Active 06/04/2016 Physical deconditioning Active 07/01/2016 Shortness of breath on exertion Active 07/01/2016 Hypoxemia requiring supplemental oxygen Active 07/01/2016 Medication management Active 07/30/2016 Hypokalemia Active 07/30/2016 Depressive Disorder Active 07/30/2016 Feelings of worthlessness Active 07/30/2016 Tremor of both hands Active 08/03/2016 Pulmonary hypertension Active 08/20/2016 Pulmonary emphysema, unspecified emphysema type Active 11/24/2016 Shoulder impingement, right Active 01/29/2017 Rotator cuff tendinitis, right Active 01/29/2017 Stage 3 chronic kidney disease Active 03/26/2017 Fear of Active 04/03/2017 Debility Active 08/02/2017 UBALDO (generalized anxiety disorder) Active 11/03/2017 Vital Signs Date Time BP-Sys(mm[Hg] BP-Zaynab(mm[Hg]) HR(bpm) RR(rpm) Temp WT HT HC BMI BSA BMI Percentile O2 Sat(%) 12/31/2017 8:12:00 AM 130 mmHg 70 mmHg 89 bpm 18 rpm 98.2 F 219 lbs 63 in 38.7937 kg/m 2.1013 m 98 % 12/12/2017 10:48:00 AM 112 mmHg 78 mmHg 88 bpm 18 rpm 98.1 F 220 lbs 64 in 37.76 kg/m2 2.12 m2 95 % 12/02/2017 11:26:00 AM 134 mmHg 80 mmHg 98 bpm 18 rpm 98 F 222 lbs 62 in 40.6039 kg/m 2.0988 m 98 % 11/12/2017 9:12:00 AM 124 mmHg 78 mmHg 91 bpm 20 rpm 98.1 F 221 lbs 63 in 39.15 kg/m2 2.11 m2 95 % 10/28/2017 9:50:00 AM 128 mmHg 74 mmHg 90 bpm 18 rpm 98.1 F 218 lbs 64 in 37.4192 kg/m 2.1131 m 95 % 10/22/2017 9:27:00 AM 130 mmHg 78 mmHg 98 bpm 20 rpm 98.3 F 221 lbs 64 in 37.93 kg/m2 2.13 m2 94 % 09/03/2017 2:14:00 PM 110 mmHg 80 mmHg 90 bpm 18 rpm 98.1 F 223 lbs 94 % 08/20/2017 3:40:00 PM 148 mmHg 62 mmHg 68 bpm 16 rpm 98.2 F 225 lbs 98 % 07/31/2017 1:46:00 PM 128 mmHg 80 mmHg 103 bpm 18 rpm 98.2 F 225 lbs 94 % 07/05/2017 12:32:00 PM 136 mmHg 74 mmHg 97 bpm 18 rpm 98.4 F 224 lbs 62 in 40.9697 kg/m 2.1082 m 98 % 05/08/2017 3:30:00 PM 126 mmHg 82 mmHg 100 bpm 18 rpm 98.4 F 214 lbs 94 % 04/15/2017 1:22:00 PM 128 mmHg 74 mmHg 98 bpm 16 rpm 98 F 215 lbs 62 in 39.3236 kg/m 2.0654 m 96 % 04/01/2017 11:01:00 AM 142 mmHg 78 mmHg 94 bpm 16 rpm 97.8 F 212 lbs 98 % 03/25/2017 10:14:00 AM 134 mmHg 80 mmHg 90 bpm 16 rpm 98 F 211 lbs 64 in 36.2177 kg/m 2.0789 m 96 % 03/12/2017 9:57:00 AM 128 mmHg 80 mmHg 86 bpm 20 rpm 98 F 210 lbs 64 in 36.05 kg/m2 2.07 m2 94 % 02/26/2017 1:49:00 PM 126 mmHg 78 mmHg 82 bpm 16 rpm 98.2 F 209 lbs 64 in 35.8744 kg/m 2.069 m 94 % 02/15/2017 6:45:00 AM 122 mmHg 80 mmHg 90 bpm 16 rpm 98.2 F 204 lbs 64 in 35.02 kg/m2 2.04 m2 96 % 01/28/2017 1:01:00 PM 132 mmHg 70 mmHg 104 bpm 16 rpm 98 F 201 lbs 94 % 01/21/2017 12:11:00 PM 138 mmHg 74 mmHg 96 bpm 16 rpm 98.4 F 202 lbs 64 in 34.6729 kg/m 2.0341 m 95 % 01/09/2017 2:22:00 PM 128 mmHg 80 mmHg 98 bpm 16 rpm 98.2 F 199 lbs 64 in 34.16 kg/m2 2.02 m2 97 % 01/03/2017 1:27:00 PM 132 mmHg 78 mmHg 84 bpm 16 rpm 98.3 F 197 lbs 98 % 12/28/2016 9:51:00 AM 128 mmHg 71 mmHg 82 bpm 19 rpm 97.3 F 196 lbs 64 in 33.643 kg/m 2.0036 m 96 % 12/25/2016 3:42:00 PM 128 mmHg 82 mmHg 92 bpm 16 rpm 98.2 F 196 lbs 98 % 12/17/2016 9:18:00 AM 110 mmHg 68 mmHg 88 bpm 18 rpm 98 F 201 lbs 64 in 34.5012 kg/m 2.029 m 95 % 12/05/2016 2:21:00 PM 118 mmHg 74 mmHg 88 bpm 16 rpm 98.2 F 204 lbs 64 in 35.02 kg/m2 2.04 m2 96 % 12/03/2016 9:31:00 AM 110 mmHg 68 mmHg 95 bpm 16 rpm 97.1 F 208 lbs 64 in 35.7028 kg/m 2.0641 m 95 % 11/30/2016 9:54:00 AM 122 mmHg 72 mmHg 121 bpm 20 rpm 97.7 F 64 in 97 % 11/29/2016 5:18:00 PM 126 mmHg 70 mmHg 84 bpm 16 rpm 96.7 F 207 lbs 99 % 11/16/2016 10:00:00 AM 110 mmHg 66 mmHg 94 bpm 20 rpm 207 lbs 64 in 35.5311 kg/m 2.0591 m 94 % 11/02/2016 8:36:00 AM 110 mmHg 58 mmHg 86 bpm 16 rpm 93.9 F 209 lbs 64 in 35.87 kg/m2 2.07 m2 99 % 10/25/2016 1:11:00 PM 122 mmHg 60 mmHg 95 bpm 16 rpm 97.7 F 211 lbs 64 in 36.2177 kg/m 2.0789 m 100 % 10/18/2016 11:50:00 AM 118 mmHg 64 mmHg 87 bpm 16 rpm 97.2 F 210 lbs 64 in 36.05 kg/m2 2.07 m2 95 % 10/04/2016 11:06:00 AM 118 mmHg 80 mmHg 90 bpm 16 rpm 97.3 F 208 lbs 86 % 09/17/2016 1:47:00 PM 125 mmHg 62 mmHg 90 bpm 20 rpm 98.2 F 201 lbs 62 in 36.763 kg/m 1.9971 m 91 % 09/07/2016 11:31:00 AM 122 mmHg 74 mmHg 82 bpm 20 rpm 98 F 203 lbs 95 % 09/03/2016 11:26:00 AM 132 mmHg 78 mmHg 88 bpm 18 rpm 97.1 F 203 lbs 64 in 34.8445 kg/m 2.0391 m 94 % 08/20/2016 1:15:00 PM 118 mmHg 80 mmHg 68 bpm 18 rpm 97.5 F 210 lbs 64 in 36.05 kg/m2 2.07 m2 94 % 08/15/2016 1:03:00 PM 102 mmHg 60 mmHg 82 bpm 18 rpm 98.2 F 209 lbs 64 in 35.8744 kg/m 2.069 m 95 % 08/09/2016 12:06:00 PM 116 mmHg 70 mmHg 82 bpm 18 rpm 97.5 F 208 lbs 64 in 35.70 kg/m2 2.06 m2 97 % 08/01/2016 12:23:00 PM 128 mmHg 74 mmHg 82 bpm 97 rpm 97.6 F 208 lbs 64 in 35.7028 kg/m 2.0641 m 94 % 07/27/2016 12:12:00 PM 125 mmHg 62 mmHg 88 bpm 20 rpm 97.2 F 207 lbs 64 in 35.53 kg/m2 2.06 m2 94 % 07/18/2016 2:43:00 PM 118 mmHg 64 mmHg 84 bpm 18 rpm 98.2 F 207 lbs 64 in 35.5311 kg/m 2.0591 m 95 % 07/06/2016 11:23:00 AM 95 mmHg 70 mmHg 82 bpm 18 rpm 98.4 F 209 lbs 64 in 35.87 kg/m2 2.07 m2 95 % 06/29/2016 11:21:00 AM 130 mmHg 80 mmHg 76 bpm 16 rpm 98.2 F 209.312 lbs 64 in 35.928 kg/m 2.0706 m 96 % 06/26/2016 4:39:00 PM 100 mmHg 62 mmHg 86 bpm 18 rpm 98 F 214 lbs 94 % 06/04/2016 6:45:00 AM 110 mmHg 74 mmHg 72 bpm 20 rpm 98.2 F 211 lbs 65 in 35.1119 kg/m 2.0951 m 98 % 05/31/2016 11:12:00 AM 126 mmHg 78 mmHg 96 bpm 18 rpm 96.9 F 211 lbs 65 in 35.11 kg/m2 2.10 m2 96 % 05/14/2016 11:06:00 AM 106 mmHg 60 mmHg 100 bpm 18 rpm 96.8 F 207 lbs 65 in 34.4462 kg/m 2.0751 m 96 % 04/17/2016 12:43:00 PM 170 mmHg 85 mmHg 98 bpm 16 rpm 97.4 F 214 lbs 89 % 04/02/2016 10:39:00 AM 130 mmHg 80 mmHg 104 bpm 18 rpm 97.8 F 210 lbs 65 in 34.9455 kg/m 2.0901 m 90 % 12/15/2015 10:08:00 AM 128 mmHg 70 mmHg 84 bpm 16 rpm 98 F 199 lbs 64 in 34.16 kg/m2 2.02 m2 92 % 10/24/2015 11:24:00 AM 145 mmHg 88 mmHg 88 bpm 16 rpm 98.2 F 196 lbs 90 % 10/11/2015 10:21:00 AM 118 mmHg 72 mmHg 99 bpm 16 rpm 97.9 F 195 lbs 65 in 32.4494 kg/m 2.0141 m 91 % 07/05/2015 1:17:00 PM 160 mmHg 88 mmHg 92 bpm 18 rpm 98.2 F 192 lbs 91 % 06/09/2015 9:21:00 AM 150 mmHg 84 mmHg 100 bpm 18 rpm 98.2 F 188 lbs 65 in 31.2845 kg/m 1.9776 m 91 % 05/12/2015 10:03:00 AM 148 mmHg 80 mmHg 94 bpm 20 rpm 97 F 188 lbs 65 in 31.28 kg/m2 1.98 m2 92 % 03/25/2015 10:00:00 AM 118 mmHg 68 mmHg 80 bpm 18 rpm 98 F 172 lbs 64 in 29.5234 kg/m 1.877 m 99 % 01/28/2015 10:51:00 AM 140 mmHg 82 mmHg 94 bpm 18 rpm 98 F 175 lbs 65 in 29.12 kg/m2 1.91 m2 98 % 01/24/2015 8:19:00 AM 120 mmHg 72 mmHg 90 bpm 16 rpm 97.4 F 176 lbs 65 in 29.2876 kg/m 1.9134 m 94 % 01/04/2015 9:05:00 AM 140 mmHg 80 mmHg 94 bpm 20 rpm 98.5 F 178 lbs 64 in 30.55 kg/m2 1.91 m2 93 % 11/17/2014 11:40:00 AM 135 mmHg 70 mmHg 94 bpm 18 rpm 97.9 F 171 lbs 64 in 29.3518 kg/m 1.8715 m 94 % 08/13/2014 11:37:00 AM 125 mmHg 70 mmHg 80 bpm 20 rpm 98 F 159 lbs 64 in 27.29 kg/m2 1.80 m2 94 % 07/05/2014 10:03:00 AM 140 mmHg 90 mmHg 94 bpm 20 rpm 98 F 159 lbs 64.5 in 26.8705 kg/m 1.8117 m 95 % 05/14/2014 10:24:00 AM 140 mmHg 80 mmHg 82 bpm 16 rpm 97.6 F 158 lbs 65 in 26.29 kg/m2 1.81 m2 96 % 05/11/2014 9:53:00 AM 136 mmHg 74 mmHg 98 bpm 20 rpm 97.8 F 158 lbs 65 in 26.2923 kg/m 1.8129 m 95 % 04/21/2014 10:12:00 AM 150 mmHg 80 mmHg 96 bpm 20 rpm 96.9 F 157 lbs 65 in 26.13 kg/m2 1.81 m2 91 % 02/18/2014 8:53:00 AM 162 mmHg 80 mmHg 90 bpm 20 rpm 98.3 F 156 lbs 65 in 25.9595 kg/m 1.8014 m 94 % 12/01/2013 11:22:00 AM 156 mmHg 80 mmHg 93 bpm 18 rpm 157.25 lbs 65 in 26.17 kg/m2 1.81 m2 92 % 08/27/2013 10:13:00 AM 160 mmHg 80 mmHg 94 bpm 20 rpm 97.2 F 155 lbs 64 in 26.6054 kg/m 1.7818 m 92 % 06/19/2013 10:11:00 AM 136 mmHg 72 mmHg 80 bpm 20 rpm 98 F 153 lbs 64 in 26.26 kg/m2 1.77 m2 94 % 06/01/2013 10:13:00 AM 140 mmHg 80 mmHg 92 bpm 20 rpm 98.1 F 154 lbs 64 in 26.4338 kg/m 1.776 m 95 % 03/06/2013 10:31:00 AM 130 mmHg 60 mmHg 90 bpm 18 rpm 96.8 F 152 lbs 64 in 26.09 kg/m2 1.76 m2 94 % 12/02/2012 10:09:00 AM 128 mmHg 88 mmHg 86 bpm 18 rpm 97.3 F 157 lbs 65 in 26.1259 kg/m 1.8072 m 93 % 10/27/2012 10:27:00 AM 130 mmHg 80 mmHg 90 bpm 96 F 158 lbs 65 in 26.29 kg/m2 1.81 m2 91 % 09/04/2012 10:56:00 AM 150 mmHg 80 mmHg 88 bpm 16 rpm 97.8 F 158 lbs 64 in 27.1204 kg/m 1.7989 m 95 % 08/18/2012 10:14:00 AM 130 mmHg 68 mmHg 72 bpm 18 rpm 97.5 F 158 lbs 64 in 27.12 kg/m2 1.80 m2 95 % 05/20/2012 10:56:00 AM 136 mmHg 68 mmHg 82 bpm 20 rpm 98.6 F 158 lbs 64 in 27.1204 kg/m 1.7989 m 94 % 04/17/2012 6:47:00 PM 122 mmHg 64 mmHg 84 bpm 18 rpm 98.4 F 156 lbs 64 in 26.78 kg/m2 1.79 m2 94 % 04/17/2012 10:45:00 AM 122 mmHg 64 mmHg 84 bpm 18 rpm 98.4 F 156 lbs 64 in 26.7771 kg/m 1.7875 m 94 % 03/11/2012 1:17:00 PM 118 mmHg 82 mmHg 93 bpm 20 rpm 97.5 F 157.187 lbs 64 in 26.98 kg/m2 1.79 m2 93 % 10/30/2011 9:33:00 AM 124 mmHg 82 mmHg 86 bpm 154 lbs 64 in 26.4338 kg/m 1.776 m 95 % 08/02/2011 9:52:00 AM 142 mmHg 86 mmHg 84 bpm 153 lbs 64 in 26.26 kg/m2 1.77 m2 02/28/2011 2:06:00 PM 130 mmHg 72 mmHg 72 bpm 20 rpm 154 lbs 64 in 26.4338 kg/m 1.776 m 11/29/2010 10:13:00 AM 148 mmHg 84 mmHg 80 bpm 97.1 F 150.375 lbs 99 % 07/17/2010 11:14:00 AM 126 mmHg 80 mmHg 90 bpm 150 lbs 95 % 01/17/2010 9:31:00 AM 122 mmHg 80 mmHg 84 bpm 150 lbs 12/30/2009 9:15:00 AM 118 mmHg 76 mmHg 80 bpm 07/22/2009 9:53:00 AM 122 mmHg 76 mmHg 80 bpm 153 lbs 06/20/2009 10:09:00 AM 151 mmHg 80 bpm 143.125 lbs 98 % Social History Name Description Comments Alcohol Never Tobacco Former smoker some college Active but no formal exercise Uses seatbelts History of Procedures Date Ordered Description Order Status 01/24/2015 12:00 AM COMPLETE CBC W/AUTO DIFF WBC Reviewed 01/24/2015 12:00 AM COMPREHEN METABOLIC PANEL Reviewed 01/24/2015 12:00 AM LIPID PANEL Reviewed 01/24/2015 12:00 AM Toradol 60 Mg [facility]#[id number] Reviewed 03/25/2015 12:00 AM Toradol 60 Mg [facility]#[id number] Reviewed 04/06/2015 12:00 AM MRI NECK SPINE W/O DYE Reviewed 05/27/2015 12:00 AM Decadron, Per 1 Mg [facility]# [id number] Reviewed 05/27/2015 12:00 AM Depo-Medrol, Per 80 Mg [facility]#[id number] Reviewed 05/27/2015 12:00 AM Rocephin 1 gram [facility]#[id number] Reviewed 02/26/2011 12:00 AM THER/PROPH/DIAG INJ SC/IM Reviewed 02/26/2011 12:00 AM Decadron Inj.1mg-([facility]) [facility] #[id number] Reviewed 02/26/2011 12:00 AM Depo-Medrol 80 Mg Im/[facility] [id number] Reviewed 12/15/2015 12:00 AM Rocephin 1 gram [facility]#[id number] Reviewed 06/03/2016 12:00 AM THERAPEUTIC PROPHYLACTIC/DX INJECTION SUBQ/IM Reviewed 06/03/2016 12:00 AM Decadron 8mg Injection, [facility] Medicare Reviewed 06/27/2016 12:00 AM COMPREHEN METABOLIC PANEL Returned 06/27/2016 12:00 AM URINALYSIS AUTO W/SCOPE Returned 07/05/2016 12:00 AM COMPREHEN METABOLIC PANEL Reviewed 07/12/2016 12:00 AM COMPREHEN METABOLIC PANEL Reviewed 07/23/2016 12:00 AM COMPREHEN METABOLIC PANEL Reviewed 09/07/2016 12:00 AM THERAPEUTIC PROPHYLACTIC/DX INJECTION SUBQ/IM Reviewed 09/07/2016 12:00 AM Rocephin 1 gram Injection, [facility] Medicare Reviewed 09/03/2016 12:00 AM THERAPEUTIC PROPHYLACTIC/DX INJECTION SUBQ/IM Reviewed 09/03/2016 12:00 AM Rocephin 1 gram Injection, [facility] Medicare Reviewed 10/22/2016 12:00 AM THERAPEUTIC PROPHYLACTIC/DX INJECTION SUBQ/IM Reviewed 10/18/2016 12:00 AM Lasix, Up to 20 Mg [facility]#[id number] [facility] Medicare Reviewed 11/16/2016 12:00 AM ASSAY OF NATRIURETIC PEPTIDE Reviewed 12/03/2016 12:00 AM THERAPEUTIC PROPHYLACTIC/DX INJECTION SUBQ/IM Reviewed 12/03/2016 12:00 AM Decadron 8mg Injection, [facility] Medicare Reviewed 11/30/2016 12:00 AM THERAPEUTIC PROPHYLACTIC/DX INJECTION SUBQ/IM Reviewed 11/30/2016 12:00 AM Decadron 8mg Injection, [facility] Medicare Reviewed 11/30/2016 12:00 AM Rocephin 1 gram Injection, [facility] Reviewed 11/30/2016 12:00 AM AIRWAY INHALATION TREATMENT Reviewed 01/09/2017 12:00 AM THERAPEUTIC PROPHYLACTIC/DX INJECTION SUBQ/IM Reviewed 01/09/2017 12:00 AM Decadron 8mg Injection Reviewed 01/28/2017 12:00 AM DRAIN/INJ JOINT/BURSA W/O US Reviewed 02/01/2017 12:00 AM DRAIN/INJ JOINT/BURSA W/O US Reviewed 03/11/2012 12:00 AM THER/PROPH/DIAG INJ SC/IM Reviewed 03/11/2012 12:00 AM Decadron, Per 1 Mg [facility]# [id number] Reviewed 03/11/2012 12:00 AM Depo-Medrol, Per 80 Mg [facility]#[id number] Reviewed 03/11/2012 12:00 AM Rocephin 1 gram [facility]#[id number] Reviewed 04/11/2012 12:00 AM Flu Injection 3 Years And Above [facility]# [id number] [facility] Reviewed 05/08/2017 12:00 AM THERAPEUTIC PROPHYLACTIC/DX INJECTION SUBQ/IM Reviewed 05/08/2017 12:00 AM Toradol 60 Mg Injection, [facility] Medicare Reviewed 07/31/2017 12:00 AM ASSAY OF NATRIURETIC PEPTIDE Returned 10/28/2017 12:00 AM COMPLETE CBC W/AUTO DIFF WBC Returned 10/28/2017 12:00 AM COMPREHEN METABOLIC PANEL Returned 10/28/2017 12:00 AM ROUTINE VENIPUNCTURE Reviewed 10/28/2017 12:00 AM ASSAY OF NATRIURETIC PEPTIDE Returned 12/31/2017 12:00 AM ASSAY OF NATRIURETIC PEPTIDE Returned 12/31/2017 12:00 AM VIT D 1 25-DIHYDROXY Returned 01/01/2018 12:00 AM ASSAY OF TOTAL THYROXINE Returned 01/01/2018 12:00 AM ASSAY THYROID STIM HORMONE Returned 01/01/2018 12:00 AM ASSAY OF THYROID (T3 OR T4) Returned 10/27/2012 12:00 AM THER/PROPH/DIAG INJ SC/IM Reviewed 10/27/2012 12:00 AM Decadron, Per 1 Mg [facility]# [id number] Reviewed 10/27/2012 12:00 AM Depo-Medrol, Per 80 Mg [facility]#[id number] Reviewed 12/26/2012 12:00 AM COMPLETE CBC W/AUTO DIFF WBC Reviewed 12/26/2012 12:00 AM COMPREHEN METABOLIC PANEL Reviewed 12/26/2012 12:00 AM LIPID PANEL Reviewed 12/26/2012 12:00 AM ASSAY THYROID STIM HORMONE Reviewed 08/27/2013 12:00 AM THER/PROPH/DIAG INJ SC/IM Reviewed 08/27/2013 12:00 AM Toradol 60 Mg [facility]#[id number] Reviewed 12/01/2013 12:00 AM THER/PROPH/DIAG INJ SC/IM Reviewed 12/01/2013 12:00 AM Toradol 60 Mg [facility]#[id number] Reviewed 07/17/2010 12:00 AM THER/PROPH/DIAG INJ SC/IM Reviewed 07/17/2010 12:00 AM Decadron Inj.6mg-([facility] #[id number] Reviewed 07/17/2010 12:00 AM Depo-Medrol 120 Mg Im/[facility] [id number] Reviewed 04/21/2014 12:00 AM IMMUNIZATION ADMIN Reviewed 04/21/2014 12:00 AM THER/PROPH/DIAG INJ SC/IM Reviewed 04/21/2014 12:00 AM Decadron, Per 1 Mg [facility] [facility] [id number] Reviewed 04/21/2014 12:00 AM Depo-Medrol, Per 80 Mg [facility]#[id number] Reviewed 05/14/2014 12:00 AM THER/PROPH/DIAG INJ SC/IM Reviewed 05/14/2014 12:00 AM Decadron, Per 1 Mg [facility]# [id number] Reviewed 05/14/2014 12:00 AM Depo-Medrol, Per 80 Mg [facility]#[id number] Reviewed 07/05/2014 12:00 AM THER/PROPH/DIAG INJ SC/IM Reviewed 07/05/2014 12:00 AM Decadron, Per 1 Mg [facility]# [id number] Reviewed 07/05/2014 12:00 AM Rocephin 1 gram [facility]#[id number] Reviewed Results Summary Date and Description Results 01/24/2015 4:55 PM WBC 10.9 RBC 4.97 HGB 14.70 g/dLHCT 46.80 %MCV 94.0 fLMCH 29.60 pgMCHC 31.40 g/dLRDW SD 48 RDW CV 13.90 %MPV 11.60 fLPLT 251 NRBC# 0.00 NRBC% 0.0 %NEUT 72.20 %%LYMP 18.40 %%MONO 7.80 %%EOS 0.90 %%BASO 0.70 %#NEUT 7.83 #LYMP 2.00 #MONO 0.85 #EOS 0.10 #BASO 0.08 MANUAL DIFF NOT IND TRIGLYCERIDES 138.0 mg/dLCHOLESTEROL 253.0 mg/dLHDL 55.0 mg/dLTOT CHOL/HDL 4.6 LDL (CALC) 170.0 mg/dLGLUCOSE 100.0 mg/dLSODIUM 141.0 mmol/LPOTASSIUM 5.10 mmol/ LCHLORIDE 102.0 mmol/LCO2 30.0 mmol/LBUN 18.0 mg/dLCREATININE 0.80 mg/dLSGOT/ AST 17.0 IU/LSGPT/ALT 18.0 IU/LALK PHOS 83.0 IU/LTOTAL PROTEIN 6.90 g/dLALBUMIN 4.30 g/dLTOTAL BILI 0.30 mg/dLCALCIUM 9.50 mg/dLAGE 69 GFR NonAA 72 GFR AA 87 eGFR >60 mL/min/1.73meGFR AA* >60 History Of Immunizations Name Date Admin Mfg Name Mfg Code Trade Name Lot# Route Inj Vis Given Vis Pub CVX Influenza 03/02/2014 Not Entered NE Not Entered Not Entered Not Entered 03/02/2014 05/06/2017 141 History of Past Illness Name Date of Onset Comments Cellulitis Jun 20 2009 10:11AM Actinic Keratosis Jul 22 2009 9:55AM Gastroesophageal Reflux Esophageal Reflux Hyperlipidemia Anxiety disorder Diverticulitis Diverticulosis of colon 09/07/2012 Low back pain 03/09/2013 Osteoarthrosis, generalized, multiple sites 03/09/2013 Low Back Pain Dec 30 2009 9:15AM Sprain/Strain Dec 30 2009 9:15AM Tobacco abuse 08/31/2013 Chronic Obstructive Pulmonary Disease 08/31/2013 Low Back Pain Jan 17 2010 9:32AM Essential hypertension 07/12/2015 Chronic back pain 01/29/2015 Cervicalgia 01/29/2015 Anxiety about health 07/12/2015 Cough Jul 17 2010 11:15AM Bronchitis, Acute Jul 17 2010 11:15AM History of smoking at least 1 pack per day for at least 30 years 04/18/2016 COPD mixed type 04/18/2016 Panic attacks 04/18/2016 Peripheral edema 06/04/2016 Physical deconditioning 07/01/2016 Shortness of breath on exertion 07/01/2016 Hypoxemia requiring supplemental oxygen 07/01/2016 Medication management 07/30/2016 Hypokalemia 07/30/2016 Depressive Disorder 07/30/2016 Feelings of worthlessness 07/30/2016 Tremor of both hands 08/03/2016 Pulmonary hypertension 08/20/2016 Pulmonary emphysema, unspecified emphysema type 11/24/2016 Irritable Bowel Syndrome Nov 29 2010 10:16AM Shoulder impingement, right 01/29/2017 Rotator cuff tendinitis, right 01/29/2017 Stage 3 chronic kidney disease 03/26/2017 Fear of 04/03/2017 Debility 08/02/2017 UBALDO (generalized anxiety disorder) 11/03/2017 Seasonal Allergies Feb 28 2011 2:02PM Costochondritis Aug 02 2011 9:53AM Anxiety Disorder Aug 02 2011 9:53AM Anxiety Disorder Oct 30 2011 9:35AM Depressive Disorder Oct 30 2011 9:35AM Irritable Bowel Syndrome Oct 30 2011 9:35AM Eustachian Tube Dysfunction Mar 11 2012 1:18PM Upper Respiratory Infection Mar 11 2012 1:18PM Flu Apr 11 2012 1:26PM Eustachian Tube Dysfunction Apr 17 2012 10:46AM Post-nasal drainage Apr 17 2012 10:46AM Pharyngitis, Acute May 20 2012 10:56AM Anxiety Disorder Aug 18 2012 10:14AM Chronic Obstructive Pulmonary Disease Aug 18 2012 10:14AM Abdominal Pain, LLQ Aug 18 2012 10:14AM Diverticulitis Of Colon Aug 18 2012 10:14AM Esophageal Reflux Aug 18 2012 10:14AM Gastroesophageal Reflux Sep 04 2012 10:56AM Diverticulosis Of Colon Sep 04 2012 10:56AM Chronic pain Oct 27 2012 10:29AM Osteoarthrosis, generalized, multiple sites Oct 27 2012 10:29AM Cervicalgia Oct 27 2012 10:29AM Pain in joint; Knee Left Oct 27 2012 10:29AM Depressive Disorder Dec 02 2012 10:10AM Diverticulosis Of Colon Dec 26 2012 1:39PM Gastroesophageal Reflux Dec 26 2012 1:39PM Anxiety Disorder Dec 26 2012 1:39PM Esophageal Reflux Dec 26 2012 1:39PM Hyperlipidemia Dec 26 2012 1:39PM Diverticulitis Dec 26 2012 1:39PM Gastroesophageal Reflux Mar 06 2013 10:31AM Low Back Pain Mar 06 2013 10:31AM Osteoarthrosis, generalized, multiple sites Mar 06 2013 10:31AM Thoracic Spine Pain Mar 06 2013 10:31AM Anxiety Disorder Mar 06 2013 10:31AM Depressive Disorder Mar 06 2013 10:31AM Muscle Spasm Mar 06 2013 10:31AM Chronic Obstructive Pulmonary Disease Jun 01 2013 10:13AM Eustachian Tube Dysfunction Jun 01 2013 10:13AM Post-nasal drainage Jun 01 2013 10:13AM Sinusitis, Chronic Jun 01 2013 10:13AM Nipple Discharge, right Jun 01 2013 10:13AM Breast Pain, Right Jun 01 2013 10:13AM Eustachian Tube Dysfunction Jun 19 2013 10:11AM Post-nasal drainage Jun 19 2013 10:11AM Upper Respiratory Infection Jun 19 2013 10:11AM Anxiety Disorder Aug 27 2013 10:14AM Tobacco Abuse Aug 27 2013 10:14AM Chronic Obstructive Pulmonary Disease Aug 27 2013 10:14AM Hyperlipidemia Aug 27 2013 10:14AM Shoulder pain, acute, right Dec 01 2013 11:24AM Muscle strain Dec 01 2013 11:24AM Muscle spasm Dec 01 2013 11:24AM Essential Hypertension Feb 18 2014 8:54AM Chronic pain Feb 18 2014 8:54AM Osteoarthrosis, generalized, multiple sites Feb 18 2014 8:54AM Anxiety Disorder Feb 18 2014 8:54AM Depressive Disorder Feb 18 2014 8:54AM Tobacco Abuse Feb 18 2014 8:54AM Chronic Obstructive Pulmonary Disease Feb 18 2014 8:54AM Cough Apr 21 2014 10:13AM Bronchitis, Acute Apr 21 2014 10:13AM Respiratory System And Chest Symptoms Apr 21 2014 10:13AM Cough May 11 2014 9:53AM Respiratory System And Chest Symptoms May 11 2014 9:53AM Bronchitis, chronic obstructive w acute bronchitis May 11 2014 9:53AM Upper Respiratory Infection May 14 2014 10:24AM Respiratory System And Chest Symptoms May 14 2014 10:24AM Tobacco abuse disorder May 14 2014 10:24AM Cough Jul 05 2014 10:04AM COPD (chronic obstructive pulmonary disease) with acute bronchitis Jul 05 2014 10:04AM Shortness of breath Jul 05 2014 10:04AM Cough Aug 13 2014 11:38AM Respiratory System And Chest Symptoms Aug 13 2014 11:38AM COPD (chronic obstructive pulmonary disease) with acute bronchitis Aug 13 2014 11:38AM Cough Nov 17 2014 11:41AM Bronchitis, Acute Nov 17 2014 11:41AM Seasonal Allergies Nov 17 2014 11:41AM Fatigue Jan 04 2015 9:05AM Ankle pain, left Jan 04 2015 9:05AM Polyphagia Jan 04 2015 9:05AM Diverticulosis Of Colon Jan 24 2015 12:39PM Gastroesophageal Reflux Jan 24 2015 12:39PM Anxiety Disorder Jan 24 2015 12:39PM Esophageal Reflux Jan 24 2015 12:39PM Hyperlipidemia Jan 24 2015 12:39PM Diverticulitis Jan 24 2015 12:39PM Cervicalgia Jan 25 2015 8:20AM Chronic back pain Jan 25 2015 8:20AM Shoulder pain, left Jan 28 2015 10:51AM Moderate Chronic Cervicalgia Mar 25 2015 11:38AM Moderate Chronic back pain Worsening Mar 25 2015 11:38AM Chronic Obstructive Pulmonary Disease Mar 25 2015 11:38AM Tobacco abuse Mar 25 2015 11:38AM Anxiety Disorder Mar 25 2015 11:38AM Esophageal Reflux Mar 25 2015 11:38AM Hyperlipidemia Mar 25 2015 11:38AM Diverticulitis Mar 25 2015 11:38AM Cervical pain (neck) Apr 06 2015 8:04AM Moderate Cough Worsening May 12 2015 10:04AM Acute pharyngitis, unspecified etiology May 12 2015 10:04AM Post-nasal drainage May 12 2015 10:04AM Moderate Acute Respiratory System And Chest Symptoms May 12 2015 10:04AM Smoker May 12 2015 10:04AM Essential Hypertension Jun 17 2015 6:42AM Skin tag Stable Jun 17 2015 6:42AM Moderate Chronic Stress bladder incontinence, female Worsening Jun 17 2015 6: 42AM Moderate Chronic Anxiety about health Worsening Jun 17 2015 6:42AM Cervicalgia Jun 17 2015 6:42AM Chronic back pain Jun 17 2015 6:42AM Chronic Obstructive Pulmonary Disease Jun 17 2015 6:42AM Esophageal Reflux Jun 17 2015 6:42AM Hyperlipidemia Jun 17 2015 6:42AM Mild Acute Essential Hypertension Jul 05 2015 1:18PM Non morbid obesity due to excess calories Jul 05 2015 1:18PM Chronic back pain Jul 05 2015 1:18PM Chronic Obstructive Pulmonary Disease Jul 05 2015 1:18PM Moderate Chronic Osteoarthrosis, generalized, multiple sites Jul 05 2015 1: 18PM Moderate Chronic Anxiety about health Jul 05 2015 1:18PM Non morbid obesity due to excess calories Oct 11 2015 10:22AM Dietary Counseling Oct 11 2015 10:22AM Exercise Counseling Oct 11 2015 10:22AM COPD (chronic obstructive pulmonary disease) Oct 11 2015 10:22AM Anxiety about health Oct 11 2015 10:22AM Chronic back pain Oct 11 2015 10:22AM Osteoarthrosis, generalized, multiple sites Oct 11 2015 10:22AM Moderate Chronic Shortness of breath on exertion Oct 11 2015 10:22AM Leg cramps Oct 24 2015 11:25AM Anxiety about health Oct 24 2015 11:25AM COPD (chronic obstructive pulmonary disease) Oct 24 2015 11:25AM Cough Dec 15 2015 10:09AM Post-nasal drainage Dec 15 2015 10:09AM Moderate Acute Respiratory System And Chest Symptoms Dec 15 2015 10:09AM COPD (chronic obstructive pulmonary disease) with acute bronchitis Dec 15 2015 10:09AM IBS (irritable bowel syndrome) Dec 15 2015 10:09AM Anxiety about health Dec 15 2015 10:09AM Chronic back pain Dec 15 2015 10:09AM Bloating Dec 15 2015 10:09AM Unilateral emphysema Apr 02 2016 10:40AM Chronic Obstructive Pulmonary Disease With Acute Exacerbation Apr 02 2016 10: 40AM Moderate Acute Pneumonia, Bacterial Improving Apr 02 2016 10:40AM Shortness of breath on exertion Apr 02 2016 10:40AM COPD mixed type Apr 17 2016 12:44PM COPD exacerbation Apr 17 2016 12:44PM Anxiety about health Apr 17 2016 12:44PM Dorsalgia, unspecified Apr 17 2016 12:44PM Other chronic pain Apr 17 2016 12:44PM Shortness of breath on exertion Apr 17 2016 12:44PM Hypoxemia Apr 17 2016 12:44PM Dependence on supplemental oxygen Apr 17 2016 12:44PM History of smoking at least 1 pack per day for at least 30 years Apr 17 2016 12:44PM Moderate Recurrent Panic attacks Apr 17 2016 12:44PM Diverticulosis Of Colon May 15 2016 1:45PM Gastroesophageal Reflux May 15 2016 1:45PM Anxiety Disorder May 15 2016 1:45PM Esophageal Reflux May 15 2016 1:45PM Hyperlipidemia May 15 2016 1:45PM Diverticulitis May 15 2016 1:45PM Congestive heart failure May 15 2016 1:45PM Chronic pain May 14 2016 11:06AM COPD exacerbation May 14 2016 11:06AM Shortness of breath on exertion May 14 2016 11:06AM Hypoxemia May 14 2016 11:06AM Dependence on supplemental oxygen May 14 2016 11:06AM Severe Chronic Anxiety about health May 14 2016 11:06AM Moderate Cough Jun 04 2016 6:46AM Moderate Chronic COPD exacerbation Jun 04 2016 6:46AM COPD (chronic obstructive pulmonary disease) May 31 2016 11:12AM Mild Chronic Peripheral edema May 31 2016 11:12AM Anxiety about health May 31 2016 11:12AM Dorsalgia, unspecified May 31 2016 11:12AM Other chronic pain May 31 2016 11:12AM Abnormal kidney function Jun 27 2016 11:47AM Anxiety about health Jun 29 2016 11:22AM Dorsalgia, unspecified Jun 29 2016 11:22AM Other chronic pain Feb 2016 11:22AM COPD mixed type b 2016 11:22AM History of smoking at least 1 pack per day for at least 30 years Feb 2016 11:22AM Panic attacks b 2016 11:22AM Peripheral edema b 2016 11:22AM Moderate Chronic Physical deconditioning Worsening Jun 29 2016 11:22AM Hypoxemia b 2016 11:22AM Dependence on supplemental oxygen b 2016 11:22AM Severe Chronic Shortness of breath on exertion Unresponsive to treatment b 2016 11:22AM Anxiety about health Jun 26 2016 4:40PM Hypoxemia b 2016 4:40PM Dependence on supplemental oxygen b 2016 4:40PM Peripheral edema b 2016 4:40PM Physical deconditioning b 2016 4:40PM Shortness of breath on exertion b 2016 4:40PM Abnormal kidney function Jul 05 2016 8:25AM Other chronic pain Jul 06 2016 11:24AM Drug induced constipation Jul 06 2016 11:24AM Bloating symptom Jul 06 2016 11:24AM Anxiety about health Jul 06 2016 11:24AM Dorsalgia, unspecified Jul 06 2016 11:24AM Other chronic pain Jul 06 2016 11:24AM COPD mixed type Jul 06 2016 11:24AM History of smoking at least 1 pack per day for at least 30 years Jul 06 2016 11:24AM Hypoxemia Jul 06 2016 11:24AM Dependence on supplemental oxygen Jul 06 2016 11:24AM Peripheral edema Jul 06 2016 11:24AM Physical deconditioning Jul 06 2016 11:24AM Shortness of breath on exertion Jul 06 2016 11:24AM Abnormal kidney function Jul 12 2016 6:24AM COPD exacerbation Jul 18 2016 2:44PM Anxiety about health Jul 18 2016 2:44PM Moderate episode of recurrent major depressive disorder Jul 18 2016 2:44PM Hypoxemia Jul 18 2016 2:44PM Dependence on supplemental oxygen Jul 18 2016 2:44PM Abnormal kidney function Jul 23 2016 10:35AM Moderate Chronic Depressive Disorder Stable Jul 27 2016 12:13PM Anxiety about health Jul 27 2016 12:13PM Dorsalgia, unspecified Jul 27 2016 12:13PM Other chronic pain Jul 27 2016 12:13PM COPD mixed type Jul 27 2016 12:13PM History of smoking at least 1 pack per day for at least 30 years Jul 27 2016 12:13PM Hypoxemia Jul 27 2016 12:13PM Dependence on supplemental oxygen Jul 27 2016 12:13PM Panic attacks Jul 27 2016 12:13PM Physical deconditioning Jul 27 2016 12:13PM Shortness of breath on exertion Jul 27 2016 12:13PM Medication management Jul 27 2016 12:13PM Worried well Jul 27 2016 12:13PM Hypokalemia Jul 27 2016 12:13PM Feelings of worthlessness Jul 27 2016 12:13PM Anxiety about health Aug 01 2016 12:23PM Dorsalgia, unspecified Aug 01 2016 12:23PM Other chronic pain Aug 01 2016 12:23PM History of smoking at least 1 pack per day for at least 30 years Aug 01 2016 12:23PM Hypoxemia Aug 01 2016 12:23PM Dependence on supplemental oxygen Aug 01 2016 12:23PM Medication management Aug 01 2016 12:23PM Panic attacks Aug 01 2016 12:23PM Peripheral edema Aug 01 2016 12:23PM Shortness of breath on exertion Aug 01 2016 12:23PM Mild Acute Tremor of both hands Aug 01 2016 12:23PM COPD (chronic obstructive pulmonary disease) Aug 09 2016 12:06PM Anxiety about health Aug 09 2016 12:06PM History of smoking at least 1 pack per day for at least 30 years Aug 09 2016 12:06PM Hypoxemia Aug 09 2016 12:06PM Dependence on supplemental oxygen Aug 09 2016 12:06PM Other forms of stomatitis Aug 09 2016 12:06PM Other viral agents as the cause of diseases classified elsewhere Aug 09 2016 12:06PM Anxiety about health Aug 20 2016 1:15PM Chronic Obstructive Pulmonary Disease Aug 20 2016 1:15PM Hypoxemia Aug 20 2016 1:15PM Dependence on supplemental oxygen Aug 20 2016 1:15PM Medication management Aug 20 2016 1:15PM Peripheral edema Aug 20 2016 1:15PM Physical deconditioning Aug 20 2016 1:15PM Shortness of breath on exertion Aug 20 2016 1:15PM Moderate Chronic Pulmonary hypertension Aug 20 2016 1:15PM Moderate Acute Costochondritis Improving Aug 15 2016 1:03PM Anxiety about health Aug 15 2016 1:03PM Dorsalgia, unspecified Aug 15 2016 1:03PM Other chronic pain Aug 15 2016 1:03PM Chronic obstructive pulmonary disease, unspecified COPD type Aug 15 2016 1: 03PM History of smoking at least 1 pack per day for at least 30 years Aug 15 2016 1:03PM Hypoxemia Aug 15 2016 1:03PM Dependence on supplemental oxygen Aug 15 2016 1:03PM Medication management Aug 15 2016 1:03PM Panic attacks Aug 15 2016 1:03PM Physical deconditioning Aug 15 2016 1:03PM Shortness of breath on exertion Aug 15 2016 1:03PM Cough, persistent Aug 15 2016 1:03PM Eustachian tube dysfunction, bilateral Sep 07 2016 11:32AM Acute pharyngitis, unspecified etiology Sep 07 2016 11:32AM Purulent postnasal drainage Sep 07 2016 11:32AM Ear pain, left Sep 07 2016 11:32AM Second hand smoke exposure Sep 07 2016 11:32AM History of smoking at least 1 pack per day for at least 30 years Sep 07 2016 11:32AM Hypoxemia Sep 07 2016 11:32AM Dependence on supplemental oxygen Sep 07 2016 11:32AM Cough Sep 03 2016 11:27AM Acute pharyngitis, unspecified etiology Sep 03 2016 11:27AM Purulent postnasal drainage Sep 03 2016 11:27AM Moderate Chronic Cough Unresponsive to treatment Sep 17 2016 1:48PM Purulent postnasal drainage Sep 17 2016 1:48PM Chronic bronchitis, unspecified chronic bronchitis type Sep 17 2016 1:48PM Medication management Sep 17 2016 1:48PM Osteoarthrosis, generalized, multiple sites Sep 17 2016 1:48PM Physical deconditioning Sep 17 2016 1:48PM Shortness of breath on exertion Sep 17 2016 1:48PM Hypoxemia Oct 04 2016 11:08AM Dependence on supplemental oxygen Oct 04 2016 11:08AM Anxiety about health Oct 04 2016 11:08AM Dorsalgia, unspecified Oct 04 2016 11:08AM Other chronic pain Oct 04 2016 11:08AM Chronic obstructive pulmonary disease, unspecified COPD type Oct 04 2016 11: 08AM Essential hypertension Oct 04 2016 11:08AM History of smoking at least 1 pack per day for at least 30 years Oct 04 2016 11:08AM Medication management Oct 04 2016 11:08AM Panic attacks Oct 04 2016 11:08AM Peripheral edema Oct 04 2016 11:08AM Pulmonary hypertension Oct 04 2016 11:08AM Shortness of breath on exertion Oct 04 2016 11:08AM Abnormal kidney function Oct 18 2016 10:14AM CHF (congestive heart failure) Oct 18 2016 11:55AM Pulmonary hypertension Oct 18 2016 11:55AM Anxiety about health Oct 18 2016 11:55AM COPD mixed type Oct 18 2016 11:55AM Essential hypertension Oct 18 2016 11:55AM History of smoking at least 1 pack per day for at least 30 years Oct 18 2016 11:55AM Hypoxemia Oct 18 2016 11:55AM Dependence on supplemental oxygen Oct 18 2016 11:55AM Moderate Acute Recurrent Peripheral edema Oct 18 2016 11:55AM Physical deconditioning Oct 18 2016 11:55AM Shortness of breath on exertion Oct 18 2016 11:55AM Anxiety about health Oct 25 2016 1:12PM Dorsalgia, unspecified Oct 25 2016 1:12PM Other chronic pain Oct 25 2016 1:12PM Chronic obstructive pulmonary disease, unspecified COPD type Oct 25 2016 1: 12PM Essential hypertension Oct 25 2016 1:12PM History of smoking at least 1 pack per day for at least 30 years Oct 25 2016 1:12PM Hypoxemia Oct 25 2016 1:12PM Dependence on supplemental oxygen Oct 25 2016 1:12PM Medication management Oct 25 2016 1:12PM Peripheral edema Oct 25 2016 1:12PM Physical deconditioning Oct 25 2016 1:12PM Pulmonary hypertension Oct 25 2016 1:12PM Shortness of breath on exertion Oct 25 2016 1:12PM Abnormal renal function finding Oct 25 2016 1:12PM Diverticulosis Of Colon Nov 16 2016 11:15AM Gastroesophageal Reflux Nov 16 2016 11:15AM Anxiety Disorder Nov 16 2016 11:15AM Esophageal Reflux Nov 16 2016 11:15AM Hyperlipidemia Nov 16 2016 11:15AM Diverticulitis Nov 16 2016 11:15AM Congestive heart failure Nov 16 2016 11:15AM Anxiety about health Nov 02 2016 8:37AM Chronic Obstructive Pulmonary Disease Nov 02 2016 8:37AM COPD mixed type Nov 02 2016 8:37AM History of smoking at least 1 pack per day for at least 30 years Nov 02 2016 8:37AM Hypoxemia Nov 02 2016 8:37AM Dependence on supplemental oxygen Nov 02 2016 8:37AM Medication management Nov 02 2016 8:37AM Peripheral edema Nov 02 2016 8:37AM Pulmonary hypertension Nov 02 2016 8:37AM Shortness of breath on exertion Nov 02 2016 8:37AM Anxiety about health Nov 23 2016 12:02PM Dorsalgia, unspecified Nov 23 2016 12:02PM Other chronic pain Nov 23 2016 12:02PM Pulmonary emphysema, unspecified emphysema type Nov 23 2016 12:02PM Depressive Disorder Nov 23 2016 12:02PM Essential hypertension Nov 23 2016 12:02PM Feelings of worthlessness Nov 23 2016 12:02PM History of smoking at least 1 pack per day for at least 30 years Nov 23 2016 12:02PM Moderate Chronic Recurrent Peripheral edema Nov 23 2016 12:02PM Physical deconditioning Nov 23 2016 12:02PM Severe Chronic Pulmonary hypertension Stable Nov 23 2016 12:02PM Shortness of breath on exertion Nov 23 2016 12:02PM Tremor of both hands Nov 23 2016 12:02PM Debility Nov 29 2016 5:19PM Peripheral edema Nov 29 2016 5:19PM Anxiety about health Nov 29 2016 5:19PM Dorsalgia, unspecified Nov 29 2016 5:19PM Other chronic pain Nov 29 2016 5:19PM Chronic Obstructive Pulmonary Disease Nov 29 2016 5:19PM COPD mixed type Nov 29 2016 5:19PM Essential hypertension Nov 29 2016 5:19PM History of smoking at least 1 pack per day for at least 30 years Nov 29 2016 5:19PM Hypokalemia Nov 29 2016 5:19PM Hypoxemia Nov 29 2016 5:19PM Dependence on supplemental oxygen Nov 29 2016 5:19PM Panic attacks Nov 29 2016 5:19PM Physical deconditioning Nov 29 2016 5:19PM Pulmonary hypertension Nov 29 2016 5:19PM Generalized anxiety disorder Nov 29 2016 5:19PM COPD exacerbation Nov 30 2016 9:55AM COPD (chronic obstructive pulmonary disease) with acute bronchitis Nov 30 2016 9:55AM Shortness of breath on exertion Nov 30 2016 9:55AM Severe Acute Chest congestion Improving Dec 03 2016 9:36AM COPD exacerbation Dec 03 2016 9:36AM COPD (chronic obstructive pulmonary disease) with acute bronchitis Dec 05 2016 2:21PM Anxiety about health Dec 05 2016 2:21PM COPD mixed type Dec 05 2016 2:21PM Essential hypertension Dec 05 2016 2:21PM History of smoking at least 1 pack per day for at least 30 years Dec 05 2016 2:21PM Hypoxemia Dec 05 2016 2:21PM Dependence on supplemental oxygen Dec 05 2016 2:21PM Peripheral edema Dec 05 2016 2:21PM Pulmonary hypertension Dec 05 2016 2:21PM Shortness of breath on exertion Dec 05 2016 2:21PM Moderate Chronic Debility Worsening Dec 25 2016 3:44PM Acute renal failure, unspecified acute renal failure type Dec 25 2016 3:44PM Acute and chronic respiratory failure with hypoxia Dec 25 2016 3:44PM Chronic obstructive pulmonary disease, unspecified COPD type Dec 25 2016 3: 44PM Recurrent major depressive disorder, in partial remission Dec 25 2016 3:44PM Moderate Chronic Recurrent Peripheral edema Dec 25 2016 3:44PM Sepsis due to Streptococcus pneumoniae Dec 25 2016 3:44PM Severe Chronic Shortness of breath on exertion Worsening Dec 25 2016 3:44PM Anxiety about health Dec 28 2016 9:51AM Dorsalgia, unspecified Dec 28 2016 9:51AM Other chronic pain Dec 28 2016 9:51AM Chronic bronchitis, unspecified chronic bronchitis type Dec 28 2016 9:51AM Depressive Disorder Dec 28 2016 9:51AM Essential hypertension Dec 28 2016 9:51AM Hypoxemia Dec 28 2016 9:51AM Dependence on supplemental oxygen Dec 28 2016 9:51AM Panic attacks Dec 28 2016 9:51AM Peripheral edema Dec 28 2016 9:51AM Physical deconditioning Dec 28 2016 9:51AM Pulmonary hypertension Dec 28 2016 9:51AM Shortness of breath on exertion Dec 28 2016 9:51AM Chronic obstructive pulmonary disease, unspecified COPD type Jan 03 2017 1: 28PM Depressive Disorder Jan 03 2017 1:28PM Essential hypertension Jan 03 2017 1:28PM Feelings of worthlessness Jan 03 2017 1:28PM History of smoking at least 1 pack per day for at least 30 years Jan 03 2017 1:28PM Hypoxemia Jan 03 2017 1:28PM Dependence on supplemental oxygen Jan 03 2017 1:28PM Peripheral edema Jan 03 2017 1:28PM Physical deconditioning Jan 03 2017 1:28PM Pulmonary hypertension Jan 03 2017 1:28PM Shortness of breath on exertion Jan 03 2017 1:28PM COPD (chronic obstructive pulmonary disease) with acute bronchitis Jan 09 2017 2:23PM Productive cough Jan 09 2017 2:23PM Hypoxemia Jan 09 2017 2:23PM Dependence on supplemental oxygen Jan 09 2017 2:23PM Anxiety about health Jan 09 2017 2:23PM COPD mixed type Jan 21 2017 12:12PM Essential hypertension Jan 21 2017 12:12PM History of smoking at least 1 pack per day for at least 30 years Jan 21 2017 12:12PM Hypoxemia Jan 21 2017 12:12PM Dependence on supplemental oxygen Jan 21 2017 12:12PM Peripheral edema Jan 21 2017 12:12PM Shortness of breath on exertion Jan 21 2017 12:12PM Shoulder impingement, right Jan 28 2017 1:01PM Anxiety about health Jan 28 2017 1:01PM Dorsalgia, unspecified Jan 28 2017 1:01PM Other chronic pain Jan 28 2017 1:01PM COPD mixed type Jan 28 2017 1:01PM Depressive Disorder Jan 28 2017 1:01PM Hypoxemia Jan 28 2017 1:01PM Dependence on supplemental oxygen Jan 28 2017 1:01PM Medication management Jan 28 2017 1:01PM Panic attacks Jan 28 2017 1:01PM Peripheral edema Jan 28 2017 1:01PM Pulmonary hypertension Jan 28 2017 1:01PM Shortness of breath on exertion Jan 28 2017 1:01PM Rotator cuff tendinitis, right Jan 28 2017 1:01PM Shoulder impingement syndrome, right Jan 29 2017 7:02AM Rotator cuff tendinitis, right Jan 29 2017 7:02AM Acute pharyngitis, unspecified etiology Jan 29 2017 9:37AM Anxiety about health Jan 29 2017 9:37AM Peripheral edema Jan 29 2017 9:37AM Primary osteoarthritis of right knee Feb 01 2017 11:53AM Pain in left knee Feb 15 2017 6:45AM Other chronic pain Feb 15 2017 6:45AM Osteoarthritis of left knee, unspecified osteoarthritis type Feb 15 2017 6: 45AM Moderate Chronic Recurrent Purulent postnasal drainage Feb 26 2017 1:50PM Moderate Chronic Recurrent Chest congestion Feb 26 2017 1:50PM Chronic obstructive pulmonary disease with acute lower respiratory infection Feb 26 2017 1:50PM Acute bronchitis, unspecified Feb 26 2017 1:50PM Moderate Acute Productive cough Feb 26 2017 1:50PM Chronic Recurrent COPD exacerbation Improving Mar 12 2017 11:50AM Moderate Chronic Pain in left knee Mar 12 2017 11:50AM Other chronic pain Mar 12 2017 11:50AM Pain in left ankle and joints of left foot Mar 12 2017 11:50AM Other chronic pain Mar 12 2017 11:50AM Pain in left knee Mar 25 2017 10:14AM Other chronic pain Mar 25 2017 10:14AM Anxiety about health Mar 25 2017 10:14AM Chronic Obstructive Pulmonary Disease Mar 25 2017 10:14AM Physical deconditioning Mar 25 2017 10:14AM Shortness of breath on exertion Mar 25 2017 10:14AM Stage 3 chronic kidney disease Mar 25 2017 10:14AM COPD exacerbation Apr 01 2017 11:02AM Anxiety about health Apr 01 2017 11:02AM COPD mixed type Apr 01 2017 11:02AM Depressive Disorder Apr 01 2017 11:02AM Feelings of worthlessness Apr 01 2017 11:02AM Hypoxemia Apr 01 2017 11:02AM Dependence on supplemental oxygen Apr 01 2017 11:02AM Physical deconditioning Apr 01 2017 11:02AM Shortness of breath on exertion Apr 01 2017 11:02AM Fear of Apr 01 2017 11:02AM Debility, unspecified Apr 01 2017 11:02AM Anxiety about health Apr 15 2017 1:22PM Chronic obstructive pulmonary disease, unspecified COPD type Apr 15 2017 1: 22PM COPD mixed type Apr 15 2017 1:22PM Essential hypertension Apr 15 2017 1:22PM Fear of Apr 15 2017 1:22PM Feelings of worthlessness Apr 15 2017 1:22PM Hypoxemia Apr 15 2017 1:22PM Dependence on supplemental oxygen Apr 15 2017 1:22PM Low back pain Apr 15 2017 1:22PM Osteoarthrosis, generalized, multiple sites Apr 15 2017 1:22PM Peripheral edema Apr 15 2017 1:22PM Physical deconditioning Apr 15 2017 1:22PM Pulmonary hypertension Apr 15 2017 1:22PM Shortness of breath on exertion Apr 15 2017 1:22PM Stage 3 chronic kidney disease Apr 15 2017 1:22PM Rotator cuff tendinitis, left May 08 2017 3:31PM Pain in left shoulder May 08 2017 3:31PM Other chronic pain May 08 2017 3:31PM Anxiety about health May 08 2017 3:31PM Stage 3 chronic kidney disease May 08 2017 3:31PM Medication management May 08 2017 3:31PM Morbid (severe) obesity with alveolar hypoventilation Jul 05 2017 12:33PM Body mass index (BMI) 40.0-44.9, adult Jul 05 2017 12:33PM Dietary Counseling Jul 05 2017 12:33PM Exercise Counseling Jul 05 2017 12:33PM Mild Chronic Peripheral edema Stable Jul 05 2017 12:33PM Anxiety about health Jul 05 2017 12:33PM Dorsalgia, unspecified Jul 05 2017 12:33PM Other chronic pain Jul 05 2017 12:33PM Chronic obstructive pulmonary disease, unspecified COPD type Jul 05 2017 12: 33PM Moderate Chronic Depressive Disorder Stable Jul 05 2017 12:33PM Essential hypertension Jul 05 2017 12:33PM Fear of Jul 05 2017 12:33PM Mild Feelings of worthlessness Improving Jul 05 2017 12:33PM History of smoking at least 1 pack per day for at least 30 years Jul 05 2017 12:33PM Hypoxemia Jul 05 2017 12:33PM Dependence on supplemental oxygen Jul 05 2017 12:33PM Medication management Jul 05 2017 12:33PM Panic attacks Jul 05 2017 12:33PM Severe Chronic Physical deconditioning Worsening Jul 05 2017 12:33PM Severe Chronic Shortness of breath on exertion Unresponsive to treatment Jul 05 2017 12:33PM Stage 3 chronic kidney disease Jul 05 2017 12:33PM Generalized anxiety disorder Jul 05 2017 12:33PM Diverticulosis Of Colon Jul 31 2017 9:50AM Gastroesophageal Reflux Jul 31 2017 9:50AM Anxiety Disorder Jul 31 2017 9:50AM Esophageal Reflux Jul 31 2017 9:50AM Hyperlipidemia Jul 31 2017 9:50AM Diverticulitis Jul 31 2017 9:50AM Congestive heart failure Jul 31 2017 9:50AM Debility Jul 31 2017 1:48PM Anxiety about health Jul 31 2017 1:48PM Dorsalgia, unspecified Jul 31 2017 1:48PM Other chronic pain Jul 31 2017 1:48PM Chronic obstructive pulmonary disease, unspecified COPD type Jul 31 2017 1: 48PM Moderate Chronic Depressive Disorder Stable Jul 31 2017 1:48PM Essential hypertension Jul 31 2017 1:48PM Fear of Jul 31 2017 1:48PM Feelings of worthlessness Jul 31 2017 1:48PM History of smoking at least 1 pack per day for at least 30 years Jul 31 2017 1:48PM Hypokalemia Jul 31 2017 1:48PM Hypoxemia Jul 31 2017 1:48PM Dependence on supplemental oxygen Jul 31 2017 1:48PM Mild Chronic Recurrent Peripheral edema Jul 31 2017 1:48PM Physical deconditioning Jul 31 2017 1:48PM Moderate Chronic Pulmonary hypertension Jul 31 2017 1:48PM Stage 3 chronic kidney disease Stable Jul 31 2017 1:48PM Anxiety about health Aug 20 2017 3:41PM Dorsalgia, unspecified Aug 20 2017 3:41PM Other chronic pain Aug 20 2017 3:41PM Chronic obstructive pulmonary disease, unspecified COPD type Aug 20 2017 3: 41PM COPD mixed type Aug 20 2017 3:41PM Essential hypertension Aug 20 2017 3:41PM Fear of Aug 20 2017 3:41PM Feelings of worthlessness Aug 20 2017 3:41PM Hypoxemia Aug 20 2017 3:41PM Dependence on supplemental oxygen Aug 20 2017 3:41PM Moderate Chronic Recurrent Peripheral edema Aug 20 2017 3:41PM Physical deconditioning Aug 20 2017 3:41PM Pulmonary hypertension Aug 20 2017 3:41PM Stage 3 chronic kidney disease Aug 20 2017 3:41PM Anxiety about health Sep 03 2017 2:14PM Dorsalgia, unspecified Sep 03 2017 2:14PM Other chronic pain Sep 03 2017 2:14PM Chronic obstructive pulmonary disease, unspecified COPD type Sep 03 2017 2: 14PM Moderate Chronic Depressive Disorder Stable Sep 03 2017 2:14PM Essential hypertension Sep 03 2017 2:14PM Fear of Sep 03 2017 2:14PM Feelings of worthlessness Sep 03 2017 2:14PM Hypoxemia Sep 03 2017 2:14PM Dependence on supplemental oxygen Sep 03 2017 2:14PM Panic attacks Sep 03 2017 2:14PM Peripheral edema Sep 03 2017 2:14PM Physical deconditioning Sep 03 2017 2:14PM Pulmonary hypertension Sep 03 2017 2:14PM Shortness of breath on exertion Sep 03 2017 2:14PM Stage 3 chronic kidney disease Sep 03 2017 2:14PM Diverticulosis Of Colon Oct 28 2017 10:44AM Gastroesophageal Reflux Oct 28 2017 10:44AM Anxiety Disorder Oct 28 2017 10:44AM Esophageal Reflux Oct 28 2017 10:44AM Hyperlipidemia Oct 28 2017 10:44AM Diverticulitis Oct 28 2017 10:44AM Congestive heart failure Oct 28 2017 10:44AM Dysfunction of both eustachian tubes Oct 28 2017 9:51AM Purulent postnasal drainage Oct 28 2017 9:51AM Acute seasonal allergic rhinitis, unspecified trigger Oct 28 2017 9:51AM Ear pain, bilateral Oct 28 2017 9:51AM Ear pressure, bilateral Oct 28 2017 9:51AM Hypoxemia Oct 22 2017 9:27AM Dependence on supplemental oxygen Oct 22 2017 9:27AM Chronic obstructive pulmonary disease, unspecified COPD type Oct 22 2017 9: 27AM COPD mixed type Oct 22 2017 9:27AM Debility Oct 22 2017 9:27AM Depressive Disorder Oct 22 2017 9:27AM Fear of Oct 22 2017 9:27AM History of smoking at least 1 pack per day for at least 30 years Oct 22 2017 9:27AM Peripheral edema Oct 22 2017 9:27AM Physical deconditioning Oct 22 2017 9:27AM Pulmonary hypertension Oct 22 2017 9:27AM Shortness of breath on exertion Oct 22 2017 9:27AM Severe Chronic UBALDO (generalized anxiety disorder) Oct 22 2017 9:27AM Dysfunction of both eustachian tubes Nov 12 2017 9:13AM Purulent postnasal drainage Nov 12 2017 9:13AM Acute seasonal allergic rhinitis, unspecified trigger Nov 12 2017 9:13AM Diverticulitis Dec 02 2017 11:26AM Left lower quadrant abdominal pain of unknown etiology Dec 02 2017 11:26AM Irritable bowel syndrome without diarrhea Dec 12 2017 10:50AM Moderate Chronic Recurrent Abdominal bloating Dec 12 2017 10:50AM Severe Chronic Anxiety about health Dec 12 2017 10:50AM Diverticulosis Of Colon Dec 31 2017 9:42AM Gastroesophageal Reflux Dec 31 2017 9:42AM Anxiety Disorder Dec 31 2017 9:42AM Esophageal Reflux Dec 31 2017 9:42AM Hyperlipidemia Dec 31 2017 9:42AM Diverticulitis Dec 31 2017 9:42AM Congestive heart failure Dec 31 2017 9:42AM Fatigue Dec 31 2017 9:42AM Fatigue Jan 01 2018 8:23AM Dietary Counseling Dec 31 2017 8:13AM Diverticulitis of large intestine without bleeding, unspecified complication status Dec 31 2017 8:13AM Left lower quadrant pain Dec 31 2017 8:13AM Anxiety about health Dec 31 2017 8:13AM Chronic obstructive pulmonary disease, unspecified COPD type Dec 31 2017 8: 13AM Hypoxemia Dec 31 2017 8:13AM Dependence on supplemental oxygen Dec 31 2017 8:13AM Physical deconditioning Dec 31 2017 8:13AM History of chronic kidney disease Dec 31 2017 8:13AM Payers Insurance Name Company Name Plan Name Plan Number Policy Number Policy Group Number Start Date Medicare RHC Medicare RHC [id number] N/A [employer] [facility] [id number] N/A Medicare Part A Medicare - Lab/Xray [id number] N/A Medicare RHC Medicare RHC [id number] N/A Medicare Part B Medicare Of [place] [id number] N/A [place] [facility] Medical Assistance Prog [id number] N/A Medicare Part A Medicare Part A [id number] N/A History of Encounters Visit Date Visit Type Provider 12/31/2017 Office visit ELOY BRITT 12/12/2017 Office visit ELOY BRITT 12/02/2017 Office visit ELOY BRITT 11/12/2017 Office visit ELOY BRITT 10/28/2017 Office visit ELOY BRITT 10/22/2017 Office visit ELOY BRITT 09/03/2017 Office visit ELOY BRITT 08/20/2017 Office visit ELOY BRITT 07/31/2017 Office visit ELOY BRITT 07/05/2017 Office visit ELOY BRITT 05/08/2017 Office visit ELOY BRITT 04/15/2017 Office visit ELOY BRITT 04/01/2017 Office visit ELOY BRITT 03/25/2017 Office visit ELOY BRITT 03/12/2017 Office visit ELOY BRITT 02/26/2017 Office visit ELOY AHUMADA PA 02/14/2017 Voided ELOY AHUMADA PA 02/14/2017 Office visit ELOY AHUMADA PA 02/01/2017 Office visit ELOY AHUMADA PA 01/28/2017 Office visit ELOY AHUMADA PA 01/21/2017 Office visit ELOY AHUMADA PA 01/09/2017 Office visit ELOY AUHMADA PA 01/03/2017 Office visit ELOY AHUMADA PA 12/28/2016 Office visit ELOY AHUMADA PA 12/25/2016 Office visit ELOY AHUMADA PA 12/17/2016 Office visit ELOY AHUMADA PA 12/10/2016 [facility] Mukul Lopez MD 12/05/2016 Office visit ELOY AHUMADA PA 12/03/2016 Office visit ELOY AHUMADA PA 11/30/2016 Office visit ELOY AHUMADA PA 11/29/2016 Office visit ELOY AHUMADA PA 11/16/2016 Office visit ELOY AHUMADA PA 11/01/2016 Office visit ELOY AHUMADA PA 10/25/2016 Office visit ELOY AHUMADA PA 10/18/2016 Office visit ELOY AHUMADA PA 10/04/2016 Office visit ELOY AHUMADA PA 09/17/2016 Office visit ELOY AHUMADA PA 09/07/2016 Office visit ELOY AHUMADA PA 09/03/2016 Office visit ELOY BRITT 08/20/2016 Office visit ELOY AHUMADA PA 08/15/2016 Office visit ELOY AHUMADA PA 08/09/2016 Office visit ELOY AHUMADA PA 07/27/2016 Office visit ELOY AHUMADA PA 07/18/2016 Office visit ELOY AHUMADA PA 07/16/2016 Office visit ELOY AHUMADA PA 07/06/2016 Office visit ELOY AHUMADA PA 06/29/2016 Office visit ELOY AHUMADA PA 06/26/2016 Office visit ELOY AHUMADA PA 06/03/2016 Office visit ELOY AHUMADA PA 05/31/2016 Office visit ELOY AHUMADA PA 05/14/2016 Office visit ELOY AHUMADA PA 04/17/2016 Office visit ELOY AHUMADA PA 04/02/2016 Office visit ELOY AHUMADA PA 03/22/2016 Hospital Jhony Phelps MD 03/22/2016 [facility] Mukul Lopez MD 12/15/2015 Office visit ELOY AHUMADA PA 10/24/2015 Office visit ELOY AHUMADA PA 10/11/2015 Office visit ELOY AHUMADA PA 07/05/2015 Office visit ELOY AHUMADA PA 06/09/2015 Office visit ELOY AHUMADA PA 05/12/2015 Office visit ELOY AHUMADA PA 03/25/2015 Office visit ELOY AHUMADA PA 01/28/2015 Office visit ELOY AHUMADA PA 01/24/2015 Office visit ELOY AHUMADA PA 01/03/2015 Office visit ELOY AHUMADA PA 11/17/2014 Office visit ELOY AHUMADA PA 08/13/2014 Office visit ELOY AHUMADA PA 07/08/2014 Voided ELOY AHUMADA PA 07/05/2014 Office visit 07/05/2014 Office visit ELOY AHUMADA PA 05/14/2014 Office visit 05/14/2014 Office visit ELOY AHUMADA PA 05/11/2014 Office visit ELOY AHUMADA PA 04/21/2014 Office visit 04/21/2014 Office visit ELOY AHUMADA PA 02/18/2014 Office visit ELOY AHUMADA PA 12/01/2013 Office visit ELOY AHUMADA PA 11/09/2013 Voided ELOY AHUMADA PA 08/27/2013 Office visit ELOY AHUMADA PA 06/19/2013 Office visit ELOY AHUMADA PA 06/01/2013 Office visit ELOY AHUMADA PA 03/06/2013 Office visit ELOY AHUMADA PA 12/02/2012 Office visit ELOY AHUMADA PA 10/27/2012 Office visit ELOY AHUMADA PA 09/11/2012 Voided ELOY AHUMADA PA 09/04/2012 Office visit ELOY AHUMADA PA 08/18/2012 Office visit ELOY AHUMADA PA 06/06/2012 Voided ELOY AHUMADA PA 05/20/2012 Office visit ELOY AHUMAAD PA 04/17/2012 Office visit ELOY AHUMADA PA 04/11/2012 Office visit ELOY AHUMADA PA 03/11/2012 Office visit ELOY AHUMADA PA 10/30/2011 Office visit ELOY AHUMADA PA 08/02/2011 Office visit ELOY AHUMADA PA 02/26/2011 Office visit Eloy Ahumada PA-C 11/29/2010 Office visit Eloy Ahumada PA-C 07/17/2010 Office visit Eloy Ahumada PA-C 01/17/2010 Office visit Eloy Ahumada PA-C 12/30/2009 Office visit Eloy Ahumada PA-C 07/22/2009 Office visit Eloy Ahumada PA-C 06/20/2009 Office visit Eloy Ahumada PA-C 02/18/2009 Office visit Eloy BRITT-C
--- OUTSIDE RECORDS SUMMARY | 2018-01-13 10:59 | XMS REPORT ---
Author Author ELOY AHUMADA [facility] Address [address] [place], [place] [id number] Care Team Providers Care Health And Safety Instructor Name Role Phone ELOY AHUMADA PCP ELOY AHUMADA PreferredProvider Allergies and Adverse Reactions Name Reaction Notes Depo-Medrol Pain, muscle spasms, insomnia Decadron Pain, Muscle spasms, insomnia Plan of Treatment Planned Activity Comments Planned Date Planned Time Plan/Goal BNP 05/15/2016 12:00 AM CMP 10/18/2016 12:00 AM cervical pain 06/15/2015 11:00 AM THYROID PANEL. 01/01/2018 12:00 AM THYROID PANEL. 01/01/2018 12:00 AM THYROID PANEL. 01/01/2018 12:00 AM Medications Active Name Start Date Estimated [...] 20 mg oral tablet 11/28/2016 As directed Xanax 0.5 mg oral tablet 05/16/2017 take 1 tablet (0.5 mg) by oral route 3 times per day amoxicillin 500 mg oral capsule 07/09/2017 take [...] 3 times per day for 30 days Name Start Date Expiration Date SIG Comments [...] days atenolol 25 mg oral tablet 08/27/2013 11/25/2013 1/2 BID dicyclomine 10 mg oral capsule 11/12/2013 [...] day phentermine 37.5 mg oral tablet 10/11/2015 04/18/201605/07 po in the am promethazine-codeine 6.25-10 mg/5 [...] Reviewed 01/24/2015 12:[address] AM [address] [facility]#[id number] Reviewed 03/25/2015 12:00 AM Tor[address] [facility]#[id number] Reviewed 04/06/2015 12:00 AM MRI NECK SPINE W/O DYE Reviewed 05/27/2015 12:00 AM Decadron, Per [address] [facility]# [id number] Reviewed 05/27/2015 12:00 AM Depo-Medrol, Per [address] [facility]#[id number] Reviewed 05/27/2015 12:00 AM Rocephin [address] [facility]#[id number] Reviewed 02/26/2011 12:00 AM THER/PROPH/DIAG INJ SC/IM Reviewed 02/26/2011 12:00 AM Decadron Inj.1mg-([facility]) [facility] #[id number] Reviewed 02/26/2011 12:00 AM Depo-Medrol 80 Mg Im/[facility] [id number] Reviewed 12/15/2015 12:00 AM Rocephin [address] [facility]#[id number] Reviewed 06/03/2016 12:00 AM THERAPEUTIC PROPHYLACTIC/DX INJECTION SUBQ/IM Reviewed 06/03/2016 12:00 AM Decadron 8mg Injection, [facility] Medicare Reviewed 06/27/2016 12:00 AM COMPREHEN METABOLIC PANEL Returned 06/27/2016 12:00 AM URINALYSIS AUTO W/SCOPE Returned 07/05/2016 12:00 AM COMPREHEN METABOLIC PANEL Reviewed 07/12/2016 12:00 AM COMPREHEN METABOLIC PANEL Reviewed 07/23/2016 12:00 AM COMPREHEN METABOLIC PANEL Reviewed 09/07/2016 12:00 AM THERAPEUTIC PROPHYLACTIC/DX INJECTION SUBQ/IM Reviewed 09/07/2016 12:00 AM Rocephin 1 gram Injection, [facility] Medicare Reviewed 09/03/2016 12:00 AM THERAPEUTIC PROPHYLACTIC/DX INJECTION SUBQ/IM Reviewed 09/03/2016 12:00 AM Rocephin 1 gram Injection, [facility] Medicare Reviewed 10/22/2016 12:00 AM THERAPEUTIC PROPHYLACTIC/DX INJECTION SUBQ/IM Reviewed 10/18/2016 12:00 AM Lasix, Up to [address] [facility]#[id number] [facility] Medicare Reviewed 11/16/2016 12:00 AM ASSAY OF NATRIURETIC PEPTIDE Reviewed 12/03/2016 12:00 AM THERAPEUTIC PROPHYLACTIC/DX INJECTION SUBQ/IM Reviewed 12/03/2016 12:00 AM Decadron 8mg Injection, [facility] Medicare Reviewed 11/30/2016 12:00 AM THERAPEUTIC PROPHYLACTIC/DX INJECTION SUBQ/IM Reviewed 11/30/2016 12:00 AM Decadron 8mg Injection, [facility] Medicare Reviewed 11/30/2016 12:00 AM Rocephin 1 gram Injection, [facility] Medicare Reviewed 11/30/2016 12:00 AM AIRWAY INHALATION TREATMENT Reviewed 01/09/2017 12:00 AM THERAPEUTIC PROPHYLACTIC/DX INJECTION SUBQ/IM Reviewed 01/09/2017 12:00 AM Decadron 8mg Injection Reviewed 01/28/2017 12:00 AM DRAIN/INJ JOINT/BURSA W/O US Reviewed 02/01/2017 12:00 AM DRAIN/INJ JOINT/BURSA W/O US Reviewed 03/11/2012 12:00 AM THER/PROPH/DIAG INJ SC/IM Reviewed 03/11/2012 12:00 AM Decadron, Per [address] [facility]# [id number] Reviewed 03/11/2012 12:00 AM Depo-Medrol, Per [address] [facility]#5209-0717-36 Reviewed 03/11/2012 12:00 AM Rocephin [address] [facility]#7688-4468-50 Reviewed 04/11/2012 12:00 AM Flu Injection [address] [facility]# [address]-26 [facility] Reviewed 05/08/2017 12:00 AM THERAPEUTIC PROPHYLACTIC/DX INJECTION [...] 12:00 AM VIT D 1 25-DIHYDROXY Returned 10/27/2012 12:00 AM THER/PROPH/DIAG INJ SC/IM Reviewed 10/27/2012 12:00 AM Decadron, Per [address] [facility]# [address]-70 Reviewed 10/27/2012 12:00 AM Depo-Medrol, Per [address] [facility]#9372-2952-54 Reviewed 12/26/2012 12:00 AM COMPLETE CBC W/AUTO DIFF WBC Reviewed 12/26/2012 12:00 AM COMPREHEN METABOLIC PANEL Reviewed 12/26/2012 12:00 AM LIPID PANEL Reviewed 12/26/2012 12:00 AM ASSAY THYROID STIM HORMONE Reviewed 08/27/2013 12:00 AM THER/PROPH/DIAG INJ SC/IM Reviewed 08/27/2013 12:00 AM [address] [facility]#[id number] Reviewed 12/01/2013 12:00 AM THER/PROPH/DIAG INJ SC/IM Reviewed 12/01/2013 12:00 AM Torad[address] [facility]#2296-8660-23 Reviewed 07/17/2010 12:00 AM THER/PROPH/DIAG INJ SC/IM Reviewed 07/17/2010 12:00 AM Decadron Inj.6mg-([facility]) [facility] #[id number] Reviewed 07/17/2010 12:00 AM Depo-Medrol 120 Mg Im/[facility] [id number] Reviewed 04/21/2014 12:00 AM IMMUNIZATION ADMIN Reviewed 04/21/2014 12:00 AM THER/PROPH/DIAG INJ SC/IM Reviewed 04/21/2014 12:00 AM Decadron, Per [address] [facility]# [address]-18 Reviewed 04/21/2014 12:00 AM Depo-Medrol, Per [address] [facility]#6260-8405-26 Reviewed 05/14/2014 12:00 AM THER/PROPH/DIAG INJ SC/IM Reviewed 05/14/2014 12:00 AM Decadron, Per [address] [facility]# [id number] Reviewed 05/14/2014 12:00 AM Depo-Medrol, Per [address] [facility]#[id number] Reviewed 07/05/2014 12:00 AM THER/PROPH/DIAG INJ SC/IM Reviewed 07/05/2014 12:00 AM Decadron, Per [address] [facility]# [address]-01 Reviewed 07/05/2014 12:00 AM Rocephin [address] [facility]#5798-5772-72 Reviewed Results Summary Date and Description Results [...] pain Feb 2016 11:22AM COPD mixed type Feb 2016 11:22AM History of smoking at least 1 pack per day for at least 30 years Feb 2016 11:22AM Panic attacks Feb 2016 11:22AM Peripheral edema Feb 2016 11:22AM Moderate Chronic Physical deconditioning Worsening b 2016 11:22AM Hypoxemia b 2016 11:22AM Dependence on supplemental oxygen b 2016 11:22AM Severe Chronic Shortness of breath on exertion Unresponsive to treatment Feb 2016 11:22AM Anxiety about health Jun 26 2016 4:40PM Hypoxemia b 2016 4:40PM Dependence on supplemental oxygen b 2016 4:40PM Peripheral edema Feb 2016 4:40PM Physical deconditioning b 2016 4:40PM [...] 2017 9:42AM Fatigue Jan 01 2018 8:23AM Payers Insurance Name Company Name Plan Name Plan Number Policy Number Policy Group Number Start Date Medicare RHC Medicare RHC [id number] N/A [place] [employer] - RHC [place] [employer] - RHC [id number] N/A Medicare Part A Medicare - Lab/Xray [id number] N/A Medicare RHC Medicare RHC [id number] N/A Medicare Part B Medicare Of [place] [id number] N/A [place] Medical Assistance [facility] Medical Assistance Prog [id number] N/A Medicare Part A Medicare Part A [id number] N/A History of Encounters Visit Date Visit [...] ELOY AHUMADA PA 01/28/2017 Office visit ELOY BRITT 01/21/2017 Office visit ELOY AHUMADA PA 01/09/2017 Office visit ELOY AHUMADA PA 01/03/2017 Office visit ELOY BRITT 12/28/2016 Office visit ELOY BRITT 12/25/2016 Office visit ELOY AHUMADA PA 12/17/2016 Office visit ELOY AHUMADA PA 12/10/2016 Hospital Mukul Lopez MD 12/05/2016 Office visit ELOY [...] ELOY AHUMADA PA 09/03/2016 Office visit ELOY AHUMADA PA 08/20/2016 Office visit ELOY AHUMADA PA 08/15/2016 [...] PA 03/22/2016 Hospital Jhony Phelps MD 03/22/2016 Hospital Mukul Lopez MD 12/15/2015 Office visit ELOY [...] ELOY AHUMADA PA 05/20/2012 Office visit ELOY AHUMADA PA 04/17/2012 Office visit ELOY AHUMADA PA [...] Eloy Ahumada PA-C 02/18/2009 Office visit Eloy Ahumada PA-C
--- OUTSIDE RECORDS SUMMARY | 2018-01-13 11:02 | XMS REPORT ---
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 Role Phone ELOY AHUMADA PCP ELOY AHUMADA PreferredProvider Allergies and Adverse Reactions Name Reaction Notes Depo-Medrol Pain, muscle spasms, insomnia Decadron Pain, Muscle spasms, insomnia Plan of Treatment Planned Activity Comments Planned Date Planned Time Plan/Goal BNP 05/15/2016 12:00 AM CMP 10/18/2016 12:00 AM cervical pain 06/15/2015 11:00 AM BNP 12/31/2017 12:00 AM Vitamin D panel (total vitamin D, vitamin D2, vitamin D3) 12/31/2017 12:00 AM Medications Active Name Start Date [...] at bedtime Cymbalta 30 mg oral capsule,delayed release(/EC) 12/02/2012 01/01/2013 take 1 capsules (30 mg) [...] Reviewed 01/24/2015 12:00 AM Toradol 60 Mg [facility]#5985-6474-61 Reviewed 03/25/2015 12:00 AM Toradol 60 Mg [facility]#1092-0478-21 Reviewed 04/06/2015 12:00 AM MRI NECK SPINE W/O DYE Reviewed 05/27/2015 12:00 AM Decadron, Per 1 Mg [facility]# [address]-89 Reviewed 05/27/2015 12:00 AM Depo-Medrol, Per 80 Mg [facility]#5058-9097-05 Reviewed 05/27/2015 12:00 AM Rocephin 1 gram [facility]#9991-7364-35 Reviewed 02/26/2011 12:00 AM THER/PROPH/DIAG INJ SC/IM Reviewed 02/26/2011 12:00 AM Decadron Inj.1mg-([facility]) [facility] #[id number] Reviewed 02/26/2011 12:00 AM Depo-Medrol 80 Mg Im/[facility] [id number] Reviewed 12/15/2015 12:00 AM Rocephin 1 gram [facility]#9208-5868-35 Reviewed 06/03/2016 12:00 AM THERAPEUTIC PROPHYLACTIC/DX INJECTION SUBQ/IM Reviewed 06/03/2016 12:00 AM Decadron 8mg Injection, [facility] Medicare Reviewed 06/27/2016 12:00 AM COMPREHEN METABOLIC PANEL Returned 06/27/2016 12:00 AM URINALYSIS AUTO W/SCOPE Returned 07/05/2016 12:00 AM COMPREHEN METABOLIC PANEL Reviewed 07/12/2016 12:00 AM COMPREHEN METABOLIC PANEL Reviewed 07/23/2016 12:00 AM COMPREHEN METABOLIC PANEL Reviewed 09/07/2016 12:00 AM THERAPEUTIC PROPHYLACTIC/DX INJECTION SUBQ/IM Reviewed 09/07/2016 12:00 AM Rocephin 1 gram Injection, [facility] Medicare Reviewed 09/03/2016 12:00 AM THERAPEUTIC PROPHYLACTIC/DX INJECTION SUBQ/IM Reviewed 09/03/2016 12:00 AM Rocephin 1 gram Injection, [facility] Medicare Reviewed 10/22/2016 12:00 AM THERAPEUTIC PROPHYLACTIC/DX INJECTION SUBQ/IM Reviewed 10/18/2016 12:00 AM Lasix, Up to 20 Mg [facility]#8798-2718-31 [facility] Medicare Reviewed 11/16/2016 12:00 AM ASSAY OF NATRIURETIC PEPTIDE Reviewed 12/03/2016 12:00 AM THERAPEUTIC PROPHYLACTIC/DX INJECTION SUBQ/IM Reviewed 12/03/2016 12:00 AM Decadron 8mg Injection, [facility] Medicare Reviewed 11/30/2016 12:00 AM THERAPEUTIC PROPHYLACTIC/DX INJECTION SUBQ/IM Reviewed 11/30/2016 12:00 AM Decadron 8mg Injection, [facility] Medicare Reviewed 11/30/2016 12:00 AM Rocephin 1 gram Injection, [facility] Medicare Reviewed 11/30/2016 12:00 AM AIRWAY INHALATION TREATMENT Reviewed 01/09/2017 12:00 AM THERAPEUTIC PROPHYLACTIC/DX INJECTION SUBQ/IM Reviewed 01/09/2017 12:00 AM Decadron 8mg Injection Reviewed 01/28/2017 12:00 AM DRAIN/INJ JOINT/BURSA W/O US Reviewed 02/01/2017 12:00 AM DRAIN/INJ JOINT/BURSA W/O US Reviewed 03/11/2012 12:00 AM THER/PROPH/DIAG INJ SC/IM Reviewed 03/11/2012 12:00 AM Decadron, Per 1 Mg [facility]# [address]-44 Reviewed 03/11/2012 12:00 AM Depo-Medrol, Per 80 Mg [facility]#8993-9410-19 Reviewed 03/11/2012 12:00 AM Rocephin 1 gram [facility]#8117-5252-14 Reviewed 04/11/2012 12:00 AM Flu Injection 3 Years And Above [facility]# [address]-87 [facility] Reviewed 05/08/2017 12:00 AM THERAPEUTIC PROPHYLACTIC/DX INJECTION SUBQ/IM Reviewed 05/08/2017 12:00 AM Toradol 60 Mg Injection, [facility] Medicare Reviewed 07/31/2017 12:00 AM ASSAY OF NATRIURETIC PEPTIDE Returned 10/28/2017 12:00 AM COMPLETE CBC W/AUTO DIFF WBC Returned 10/28/2017 12:00 AM COMPREHEN METABOLIC PANEL Returned 10/28/2017 12:00 AM ROUTINE VENIPUNCTURE Reviewed 10/28/2017 12:00 AM ASSAY OF NATRIURETIC PEPTIDE Returned 10/27/2012 12:00 AM THER/PROPH/DIAG INJ SC/IM Reviewed 10/27/2012 12:00 AM Decadron, Per 1 Mg [facility]# [address]-05 Reviewed 10/27/2012 12:00 AM Depo-Medrol, Per 80 Mg [facility]#0420-2837-45 Reviewed 12/26/2012 12:00 AM COMPLETE CBC W/AUTO DIFF WBC Reviewed 12/26/2012 12:00 AM COMPREHEN METABOLIC PANEL Reviewed 12/26/2012 12:00 AM LIPID PANEL Reviewed 12/26/2012 12:00 AM ASSAY THYROID STIM HORMONE Reviewed 08/27/2013 12:00 AM THER/PROPH/DIAG INJ SC/IM Reviewed 08/27/2013 12:00 AM Toradol 60 Mg [facility]#8348-0605-52 Reviewed 12/01/2013 12:00 AM THER/PROPH/DIAG INJ SC/IM Reviewed 12/01/2013 12:00 AM Toradol 60 Mg [facility]#2436-1830-30 Reviewed 07/17/2010 12:00 AM THER/PROPH/DIAG INJ SC/IM Reviewed 07/17/2010 12:00 AM Decadron Inj.6mg-([facility]) [facility] #[id number] Reviewed 07/17/2010 12:00 AM Depo-Medrol 120 Mg Im/[facility] [id number] Reviewed 04/21/2014 12:00 AM IMMUNIZATION ADMIN Reviewed 04/21/2014 12:00 AM THER/PROPH/DIAG INJ SC/IM Reviewed 04/21/2014 12:00 AM Decadron, Per 1 Mg [facility]# [address]-80 Reviewed 04/21/2014 12:00 AM Depo-Medrol, Per 80 Mg [facility]#0227-0529-97 Reviewed 05/14/2014 12:00 AM THER/PROPH/DIAG INJ SC/IM Reviewed 05/14/2014 12:00 AM Decadron, Per 1 Mg [facility]# [address]-34 Reviewed 05/14/2014 12:00 AM Depo-Medrol, Per 80 Mg [facility]#6649-6037-57 Reviewed 07/05/2014 12:00 AM THER/PROPH/DIAG INJ SC/IM Reviewed 07/05/2014 12:00 AM Decadron, Per 1 Mg [facility]# [address]-39 Reviewed 07/05/2014 12:00 AM Rocephin 1 gram [facility]#4841-0355-32 Reviewed Results Summary Date and Description Results [...] Jun 29 2016 11:22AM Other chronic pain Jun 29 2016 11:22AM COPD mixed type Jun 29 2016 11:22AM History of smoking at least 1 pack per day for at least 30 years Jun 29 2016 11:22AM Panic attacks Jun 29 2016 11:22AM Peripheral edema Jun 29 2016 11:22AM Moderate Chronic Physical deconditioning Worsening Jun 29 2016 11:22AM Hypoxemia Jun 29 2016 11:22AM Dependence on supplemental oxygen Jun 29 2016 11:22AM Severe Chronic Shortness of breath on exertion Unresponsive to treatment Jun 29 2016 11:22AM Anxiety about health Jun 26 2016 4:40PM Hypoxemia Jun 26 2016 4:40PM Dependence on supplemental oxygen Jun 26 2016 4:40PM Peripheral edema Jun 26 2016 4:40PM Physical deconditioning Jun 26 2016 4:40PM Shortness of breath on exertion Jun 26 2016 4:40PM Abnormal kidney function Jul 05 [...] 2017 9:42AM Fatigue Dec 31 2017 9:42AM Payers Insurance Name Company Name Plan Name Plan Number Policy Number Policy Group Number Start Date Medicare RHC Medicare RHC [id number] N/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 [place] [employer] - RHC [id number] N/A Medicare Part A Medicare - Lab/Xray [id number] N/A Medicare RHC Medicare RHC [id number] N/A Medicare Part B Medicare Of [place] [id number] N/A [place] Medical Assistance [facility] Medical Assistance Prog [id number] N/A Medicare Part A Medicare Part A [id number] N/A History of Encounters Visit Date Visit [...] visit ELOY BRITT 02/26/2017 Office visit ELOY BRITT 02/14/2017 Voided ELOY AHUMADA PA 02/14/2017 Office visit ELOY BRITT 02/01/2017 Office visit ELOY AHUMADA PA 01/28/2017 Office visit ELOY BRITT 01/21/2017 Office visit ELOY BRITT 01/09/2017 Office visit ELOY AHUMADA PA 01/03/2017 Office visit ELOY AHUMADA PA 12/28/2016 Office visit ELOY BRITT 12/25/2016 Office visit ELOY BRITT 12/17/2016 Office visit ELOY BRITT 12/10/2016 Leann Dwayne Lopez MD 12/05/2016 Office visit ELOY AHUMADA [...] ELOY AHUMADA PA 09/07/2016 Office visit ELOY AHUMAAD PA 09/03/2016 Office visit ELOY AHUMADA PA [...] ELOY AHUMADA PA 04/02/2016 Office visit ELOY BIRTT 03/22/2016 Hospital Jhony Phelps MD 03/22/2016 [facility] Mukul Lopez MD 12/15/2015 Office visit [...]
--- OUTSIDE RECORDS SUMMARY | 2018-01-13 11:05 | XMS REPORT ---
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 Name Role Phone ELOY AHUMADA PCP ELOY [...] as directed Cipro 500 mg oral tablet 12/02/2017 12/09/2017 take 1 tablet (500 mg) by oral route 2 times per day for 7 days Discontinued Name Start Date Discontinued Date [...] HC BMI BSA BMI Percentile O2 Sat(%) 12/12/2017 10:48:00 AM 112 mmHg 78 mmHg 88 bpm 18 rpm 98.1 F 220 lbs 64 in 37.7625 kg/m 2.1228 m 95 % 12/02/2017 11:26:00 AM 134 mmHg 80 mmHg 98 bpm 18 rpm 98 F 222 lbs 62 in 40.60 kg/m2 2.10 m2 98 % 11/12/2017 9:12:00 AM 124 mmHg 78 mmHg 91 bpm 20 rpm 98.1 F 221 lbs 63 in 39.148 kg/m 2.1109 m 95 % 10/28/2017 9:50:00 AM 128 mmHg 74 mmHg 90 bpm 18 rpm 98.1 F 218 lbs 64 in 37.42 kg/m2 2.11 m2 95 % 10/22/2017 9:27:00 AM 130 mmHg 78 mmHg 98 bpm 20 rpm 98.3 F 221 lbs 64 in 37.9342 kg/m 2.1276 m 94 % 09/03/2017 2:14:00 PM 110 mmHg [...] 98 % Social History Name Description Comments Tobacco Former smoker denies alcohol use some college Active but no formal exercise Uses seatbelts History of Procedures Date Ordered Description Order Status 01/24/2015 12:00 AM COMPLETE CBC W/AUTO DIFF WBC Reviewed 01/24/2015 12:00 AM COMPREHEN METABOLIC PANEL Reviewed 01/24/2015 12:00 AM LIPID PANEL Reviewed 01/24/2015 12:00 AM Toradol 60 Mg [facility]#1098-5366-98 Reviewed 03/25/2015 12:00 AM Toradol 60 Mg [facility]#7292-5480-95 Reviewed 04/06/2015 12:00 AM MRI NECK SPINE W/O DYE Reviewed 05/27/2015 12:00 AM Decadron, Per 1 Mg [facility]# [address]-59 Reviewed 05/27/2015 12:00 AM Depo-Medrol, Per 80 Mg [facility]#2067-9445-04 Reviewed 05/27/2015 12:00 AM Rocephin 1 gram [facility]#4673-5203-43 Reviewed 02/26/2011 12:00 AM THER/PROPH/DIAG INJ SC/IM Reviewed 02/26/2011 12:00 AM Decadron Inj.1mg-([facility]) [facility] #[id number] Reviewed 02/26/2011 12:00 AM Depo-Medrol 80 Mg Im/[facility] 0009-740808 Reviewed 12/15/2015 12:00 AM Rocephin 1 gram [facility]#1634-7969-46 Reviewed 06/03/2016 12:00 AM THERAPEUTIC PROPHYLACTIC/DX INJECTION SUBQ/IM Reviewed 06/03/2016 12:00 AM Decadron 8mg Injection, [facility] Medicare Reviewed 06/27/2016 12:00 AM COMPREHEN METABOLIC PANEL Returned 06/27/2016 12:00 AM URINALYSIS AUTO W/SCOPE Returned 07/05/2016 12:00 AM COMPREHEN METABOLIC PANEL Reviewed 07/12/2016 12:00 AM COMPREHEN METABOLIC PANEL Reviewed 07/23/2016 12:00 AM COMPREHEN METABOLIC PANEL Reviewed 09/07/2016 12:00 AM THERAPEUTIC PROPHYLACTIC/DX INJECTION SUBQ/IM Reviewed 09/07/2016 12:00 AM Rocephin 1 gram Injection, [facility] Medicare Reviewed 09/03/2016 12:00 AM THERAPEUTIC PROPHYLACTIC/DX INJECTION SUBQ/IM Reviewed 09/03/2016 12:00 AM Rocephin 1 gram Injection, [facility] Medicare Reviewed 10/22/2016 12:00 AM THERAPEUTIC PROPHYLACTIC/DX INJECTION SUBQ/IM Reviewed 10/18/2016 12:00 AM Lasix, Up to 20 Mg [facility]#9810-8737-56 [facility] Medicare Reviewed 11/16/2016 12:00 AM ASSAY OF NATRIURETIC PEPTIDE Reviewed 12/03/2016 12:00 AM THERAPEUTIC PROPHYLACTIC/DX INJECTION SUBQ/IM Reviewed 12/03/2016 12:00 AM Decadron 8mg Injection, [facility] Medicare Reviewed 11/30/2016 12:00 AM THERAPEUTIC PROPHYLACTIC/DX INJECTION SUBQ/IM Reviewed 11/30/2016 12:00 AM Decadron 8mg Injection, [facility] Medicare Reviewed 11/30/2016 12:00 AM Rocephin 1 gram Injection, [facility] Medicare Reviewed 11/30/2016 12:00 AM AIRWAY INHALATION TREATMENT Reviewed 01/09/2017 12:00 AM THERAPEUTIC PROPHYLACTIC/DX INJECTION SUBQ/IM Reviewed 01/09/2017 12:00 AM Decadron 8mg Injection Reviewed 01/28/2017 12:00 AM DRAIN/INJ JOINT/BURSA W/O US Reviewed 02/01/2017 12:00 AM DRAIN/INJ JOINT/BURSA W/O US Reviewed 03/11/2012 12:00 AM THER/PROPH/DIAG INJ SC/IM Reviewed 03/11/2012 12:00 AM Decadron, Per 1 Mg [facility]# [address]-89 Reviewed 03/11/2012 12:00 AM Depo-Medrol, Per 80 Mg [facility]#6914-6414-78 Reviewed 03/11/2012 12:00 AM Rocephin 1 gram [facility]#5651-7733-58 Reviewed 04/11/2012 12:00 AM Flu Injection 3 Years And Above [facility]# [address]-72 [facility] Reviewed 05/08/2017 12:00 AM THERAPEUTIC PROPHYLACTIC/DX [...] 10/27/2012 12:00 AM Decadron, Per 1 Mg [facility]# [address]-46 Reviewed 10/27/2012 12:00 AM Depo-Medrol, Per 80 Mg [facility]#4424-1785-57 Reviewed 12/26/2012 12:00 AM COMPLETE CBC W/AUTO DIFF WBC Reviewed 12/26/2012 12:00 AM COMPREHEN METABOLIC PANEL Reviewed 12/26/2012 12:00 AM LIPID PANEL Reviewed 12/26/2012 12:00 AM ASSAY THYROID STIM HORMONE Reviewed 08/27/2013 12:00 AM THER/PROPH/DIAG INJ SC/IM Reviewed 08/27/2013 12:00 AM Toradol 60 Mg [facility]#7480-9770-25 Reviewed 12/01/2013 12:00 AM THER/PROPH/DIAG INJ SC/IM Reviewed 12/01/2013 12:00 AM Toradol 60 Mg [facility]#9284-3648-15 Reviewed 07/17/2010 12:00 AM THER/PROPH/DIAG INJ SC/IM Reviewed 07/17/2010 12:00 AM Decadron Inj.6mg-([facility]) [facility] #[id number] Reviewed 07/17/2010 12:00 AM Depo-Medrol 120 Mg Im/[facility] 0009-196653 Reviewed 04/21/2014 12:00 AM IMMUNIZATION ADMIN Reviewed 04/21/2014 12:00 AM THER/PROPH/DIAG INJ SC/IM Reviewed 04/21/2014 12:00 AM Decadron, Per 1 Mg [facility]# [address]-07 Reviewed 04/21/2014 12:00 AM Depo-Medrol, Per 80 Mg [facility]#5303-0221-70 Reviewed 05/14/2014 12:00 AM THER/PROPH/DIAG INJ SC/IM Reviewed 05/14/2014 12:00 AM Decadron, Per 1 Mg [facility]# [address]-96 Reviewed 05/14/2014 12:00 AM Depo-Medrol, Per 80 Mg [facility]#1774-5256-55 Reviewed 07/05/2014 12:00 AM THER/PROPH/DIAG INJ SC/IM Reviewed 07/05/2014 12:00 AM Decadron, Per 1 Mg [facility]# [address]-65 Reviewed 07/05/2014 12:00 AM Rocephin 1 gram [facility]#3192-2133-33 Reviewed Results Summary Date and Description Results [...] Of Immunizations Name Date Admin Mfg Name Mf Code Trade Name Lot# Route Inj Vis [...] Anxiety about health Dec 12 2017 10:50AM Payers Insurance Name Company Name Plan Name Plan Number Policy Number Policy Group Number Start Date Medicare RHC Medicare RHC [id number] N/A [place] 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 RH [id number] N/A Medicare Part A Medicare - Lab/Xray [id number] N/A Medicare Part B Medicare Of [place] [id number] N/A [place] Medical Assistance Program [place] Medical Assistance Prog [id number] N/A Medicare Part A Medicare Part A [id number] N/A History of Encounters Visit Date Visit Type Provider 12/12/2017 Office visit ELOY BRITT 12/02/2017 Office visit ELOY AHUMADA PA 11/12/2017 Office visit ELOY AHUMADA PA 10/28/2017 Office visit ELOY AHUMADA PA 10/22/2017 Office visit ELOY AHUMADA PA 09/03/2017 Office visit ELOY AHUMADA PA 08/20/2017 Office visit ELOY AHUMADA PA 07/31/2017 Office visit ELOY AHUMADA PA 07/05/2017 Office visit ELOY AHUMADA PA 05/08/2017 Office visit ELOY AHUMADA PA 04/15/2017 Office visit ELOY AHUMADA PA 04/01/2017 Office visit ELOY AHUMADA PA 03/25/2017 Office visit ELOY AHUMADA PA 03/12/2017 Office visit ELOY AHUMADA PA 02/26/2017 Office visit ELOY AHUMADA PA 02/14/2017 [...] 12/17/2016 Office visit ELOY AHUMADA PA 12/10/2016 [facility] Mukul Lopez MD 12/05/2016 Office visit ELOY [...] ELOY AHUMADA PA 04/02/2016 Office visit ELOY BRITT 03/22/2016 Hospital Jhony Phelps MD 03/22/2016 [facility] Mukul Lopez MD 12/15/2015 Office visit ELOY AHUMADA PA 10/24/2015 Office visit ELOY AHUMADA PA 10/11/2015 Office visit ELOY BRITT 07/05/2015 Office visit ELOY AHUMADA PA 06/09/2015 Office visit ELOY BRITT 05/12/2015 Office visit ELOY AHUMADA PA 03/25/2015 Office visit ELOY AHUMADA PA 01/28/2015 Office visit ELOY BRITT 01/24/2015 Office visit ELOY AHUMADA PA 01/03/2015 Office visit ELOY BRITT 11/17/2014 Office visit ELOY BRITT 08/13/2014 Office visit ELOY AHUMADA PA 07/08/2014 Voided ELOY BRITT 07/05/2014 Office visit 07/05/2014 Office visit ELOY [...]
--- OUTSIDE RECORDS SUMMARY | 2018-01-13 11:08 | XMS REPORT ---
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 Role Phone ELOY AHUMADA PCP ELOY [...] by oral route 4 times per day Cipro 500 mg oral tablet 12/02/2017 12/09/2017 take 1 tablet (500 mg) by oral route 2 times per day for 7 days Name Start Date Expiration Date SIG [...] oral tablets,dose pack 11/01/2017 take as directed Discontinued Name Start Date Discontinued Date SIG [...] HC BMI BSA BMI Percentile O2 Sat(%) 12/02/2017 11:26:00 AM 134 mmHg 80 mmHg [...] Reviewed 01/24/2015 12:00 AM Toradol 60 Mg [facility]#7460-7761-61 Reviewed 03/25/2015 12:00 AM Toradol 60 Mg [facility]#8354-0112-24 Reviewed 04/06/2015 12:00 AM MRI NECK SPINE W/O DYE Reviewed 05/27/2015 12:00 AM Decadron, Per 1 Mg [facility]# [address]-07 Reviewed 05/27/2015 12:00 AM Depo-Medrol, Per 80 Mg [facility]#2362-7633-85 Reviewed 05/27/2015 12:00 AM Rocephin 1 gram [facility]#9433-8286-84 Reviewed 02/26/2011 12:00 AM THER/PROPH/DIAG INJ SC/IM Reviewed 02/26/2011 12:00 AM Decadron Inj.1mg-([facility]) [facility] #[id number] Reviewed 02/26/2011 12:00 AM Depo-Medrol 80 Mg Im/[facility] [id number] Reviewed 12/15/2015 12:00 AM Rocephin 1 gram [facility]#0761-9679-48 Reviewed 06/03/2016 12:00 AM THERAPEUTIC PROPHYLACTIC/DX INJECTION SUBQ/IM Reviewed 06/03/2016 12:00 AM Decadron 8mg Injection, [facility] Medicare Reviewed 06/27/2016 12:00 AM COMPREHEN METABOLIC PANEL Returned 06/27/2016 12:00 AM URINALYSIS AUTO W/SCOPE Returned 07/05/2016 12:00 AM COMPREHEN METABOLIC PANEL Reviewed 07/12/2016 12:00 AM COMPREHEN METABOLIC PANEL Reviewed 07/23/2016 12:00 AM COMPREHEN METABOLIC PANEL Reviewed 09/07/2016 12:00 AM THERAPEUTIC PROPHYLACTIC/DX INJECTION SUBQ/IM Reviewed 09/07/2016 12:00 AM Rocephin 1 gram Injection, [facility] Medicare Reviewed 09/03/2016 12:00 AM THERAPEUTIC PROPHYLACTIC/DX INJECTION SUBQ/IM Reviewed 09/03/2016 12:00 AM Rocephin 1 gram Injection, [facility] Medicare Reviewed 10/22/2016 12:00 AM THERAPEUTIC PROPHYLACTIC/DX INJECTION SUBQ/IM Reviewed 10/18/2016 12:00 AM Lasix, Up to 20 Mg [facility]#7028-3806-97 [facility] Medicare Reviewed 11/16/2016 12:00 AM ASSAY OF [...] 03/11/2012 12:00 AM Decadron, Per 1 Mg [facility]# [address]-22 Reviewed 03/11/2012 12:00 AM Depo-Medrol, Per 80 Mg [facility]#2695-9135-67 Reviewed 03/11/2012 12:00 AM Rocephin 1 gram [facility]#0320-0185-32 Reviewed 04/11/2012 12:00 AM Flu Injection 3 Years And Above [facility]# [address]-31 [facility] Reviewed 05/08/2017 12:00 AM THERAPEUTIC PROPHYLACTIC/DX INJECTION [...] 10/27/2012 12:00 AM Decadron, Per 1 Mg [facility]# [address]-27 Reviewed 10/27/2012 12:00 AM Depo-Medrol, Per 80 Mg [facility]#4972-2969-72 Reviewed 12/26/2012 12:00 AM COMPLETE CBC W/AUTO DIFF WBC Reviewed 12/26/2012 12:00 AM COMPREHEN METABOLIC PANEL Reviewed 12/26/2012 12:00 AM LIPID PANEL Reviewed 12/26/2012 12:00 AM ASSAY THYROID STIM HORMONE Reviewed 08/27/2013 12:00 AM THER/PROPH/DIAG INJ SC/IM Reviewed 08/27/2013 12:00 AM Toradol 60 Mg [facility]#3664-8447-13 Reviewed 12/01/2013 12:00 AM THER/PROPH/DIAG INJ SC/IM Reviewed 12/01/2013 12:00 AM Toradol 60 Mg [facility]#1450-5005-96 Reviewed 07/17/2010 12:00 AM THER/PROPH/DIAG INJ SC/IM Reviewed 07/17/2010 12:00 AM Decadron Inj.6mg-([facility]) [facility] #[id number] Reviewed 07/17/2010 12:00 AM Depo-Medrol 120 Mg Im/[facility] [id number] Reviewed 04/21/2014 12:00 AM IMMUNIZATION ADMIN Reviewed 04/21/2014 12:00 AM THER/PROPH/DIAG INJ SC/IM Reviewed 04/21/2014 12:00 AM Decadron, Per 1 Mg [facility]# [address]-53 Reviewed 04/21/2014 12:00 AM Depo-Medrol, Per 80 Mg [facility]#9060-9275-02 Reviewed 05/14/2014 12:00 AM THER/PROPH/DIAG INJ SC/IM Reviewed 05/14/2014 12:00 AM Decadron, Per 1 Mg [facility]# [address]-89 Reviewed 05/14/2014 12:00 AM Depo-Medrol, Per 80 Mg [facility]#0778-9824-23 Reviewed 07/05/2014 12:00 AM THER/PROPH/DIAG INJ SC/IM Reviewed 07/05/2014 12:00 AM Decadron, Per 1 Mg [facility]# [address]-56 Reviewed 07/05/2014 12:00 AM Rocephin 1 gram [facility]#7118-6034-60 Reviewed Results Summary Date and Description Results [...] of unknown etiology Dec 02 2017 11:26AM Payers Insurance Name Company Name Plan Name Plan Number Policy Number Policy Group Number Start Date Medicare RHC Medicare RHC [id number] N/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 [place] Operating Room Technologist Prog - RHC [id number] N/A Medicare Part A Medicare - Lab/Xray [id number] N/A Medicare Part B Medicare Of [place] [id number] N/A [place] Medical Assistance Program [place] Medical Assistance Prog [id number] N/A Medicare Part A Medicare Part A [id number] N/A History of Encounters Visit Date Visit Type Provider 12/02/2017 Office visit ELOY BRITT 11/12/2017 Office visit ELOY BRITT 10/28/2017 Office visit ELOY BRITT 10/22/2017 Office visit ELOY BRITT 09/03/2017 Office visit ELOY BRITT 08/20/2017 Office visit ELOY BRITT 07/31/2017 Office visit ELOY BRITT 07/05/2017 Office visit ELOY BRITT 05/08/2017 Office visit ELOY BRITT 04/15/2017 Office visit ELOY BRITT 04/01/2017 Office visit ELOY AHUMADA PA 03/25/2017 [...] 12/17/2016 Office visit ELOY AHUMADA PA 12/10/2016 [facility] Dwayne Lopez MD 12/05/2016 Office visit ELOY [...] visit ELOY AHUMADA PA 08/15/2016 Office visit EOLY AHUMADA PA 08/09/2016 Office visit ELOY AHUMADA PA 07/27/2016 Office visit ELOY AHUMADA PA 07/18/2016 Office visit ELOY AHUMADA PA 07/16/2016 Office visit ELOY AHUMADA PA 07/06/2016 Office visit ELOY AHUMADA PA 06/29/2016 Office visit ELOY AHUMADA PA 06/26/2016 Office visit ELOY AHUMADA PA 06/03/2016 Office visit EOLY AHUMADA PA 05/31/2016 Office visit ELOY AHUMADA PA 05/14/2016 Office visit ELOY AHUMADA PA 04/17/2016 Office visit ELOY AHUMADA PA 04/02/2016 Office visit ELOY BRITT 03/22/2016 [facility] J[facility] Phel[facility] MD 03/22/2016 [facility] Mukul Lopez MD 12/15/2015 Office visit [...]
--- OUTSIDE RECORDS SUMMARY | 2018-01-13 11:09 | XMS REPORT ---
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 Phone ELOY AHUMADA PCP Unavailable ELOY AHUMADA PreferredProvider Unavailable Allergies and Adverse Reactions Name Reaction Notes Depo-Medrol Pain, muscle spasms, insomnia Decadron Pain, Muscle spasms, insomnia Plan of Treatment Planned Activity Comments Planned Date Planned Time Plan/Goal BNP 05/15/2016 12:00 AM cervical pain 06/15/2015 11:00 AM Medications Active Name Start Date Estimated Completion Date SIG Comments pantoprazole 40 mg oral tablet,delayed release (DR/EC) 03/05/2014 take 1 tablet (40 mg) by oral route once daily fluticasone 50 mcg/actuation nasal spray,suspension 05/11/2014 1 SPRAY IN EACH NOSTRIL TWICE DAILY ipratropium-albuterol 0.5 mg-3 mg(2.5 mg base)/3 mL inhalation solution for nebulization 05/11/2014 inhale 3 milliliters by nebulization route 4 times per day and as needed, up to 6 doses per day pantoprazole 40 mg oral tablet,delayed release (DR/EC) 10/24/2015 TAKE 1 TABLET BY MOUTH ONCE DAILY promethazine-codeine 6.25-10 mg/5 mL oral syrup 12/18/2015 take 5 milliliters by oral route every 4-6 hours as needed, not to exceed 30 mL in 24 hours pantoprazole 40 mg oral tablet,delayed release (DR/EC) 01/16/2016 TAKE 1 TABLET BY MOUTH ONCE DAILY lisinopril-hydrochlorothiazide 10-12.5 mg oral tablet 03/26/2016 take 1 tablet by oral route once daily for 30 days Ativan 1 mg oral tablet 04/17/2016 take 1 tablet by oral route 3 times a day PRN anxiety albuterol sulfate 2.5 mg /3 mL (0.083 %) inhalation solution for nebulization 04/17/2016 used in Small Volume Nebulizer QID PRN Bentyl 10 mg oral capsule 05/10/2016 take 1 capsule (10 mg) by oral route 4 times per day amlodipine 5 mg oral tablet 05/15/2016 11/11/2016 take 1 tablet (5 mg) by oral route once daily for 30 days furosemide 40 mg oral tablet 06/29/2016 daily as directed Sinemet 10-100 mg oral tablet 07/16/2016 10/14/2016 take 1 tablet by oral route 3 times per day for 30 days Symbicort 160-4.5 mcg/actuation inhalation HFA aerosol inhaler 07/27/2016 inhale 2 puffs by inhalation route 2 times per day in the morning and evening spironolactone 50 mg oral tablet 08/20/2016 11/18/2016 take 1 tablet (50 mg) by oral route once daily for 30 days Medrol (Jerome) 4 mg oral tablets,dose pack 08/29/2016 take as directed Percocet 5-325 mg oral tablet 09/17/2016 take 1 tablet by oral route every 6 hours as needed Xanax 0.5 mg oral tablet 10/02/2016 take 1 tablet (0.5 mg) by oral [...] times a day for 30 days Zithromax Z-Jermoe 250 mg oral tablet 06/22/2013 take 2 [...] oral route every 6 hours as needed 3 Rx's Levaquin 500 mg oral tablet 04/22/2014 take [...] oral route once daily for 10 days Zithromax Z-Jerome 250 mg oral tablet 08/29/2016 09/03/2016 take 2 tablets (500 mg ) by oral route once daily for 1 day then 1 tablet (250 mg) by oral route once daily for 4 days amoxicillin 500 mg oral tablet 09/07/2016 09/17/2016 take 1 tablet by oral route 4 times a day for 10 days Discontinued Name Start [...] 1/2 to 1 PO BID PRN anxiety Nicoderm CQ 21 mg/24 hr transdermal patch 24 hour 08/10/2014 03/27/2015 apply 1 patch (21 mg) by transdermal route once daily for 4 weeks Breo Ellipta 100-25 mcg/dose inhalation blister with device 10/17/20152016 inhale 1 puff by inhalation route once daily at the same time each day phentermine 37.5 mg oral tablet 10/11/2015 04/18/2016 1/2 po in the am Problem List Description Status Onset Gastroesophageal Reflux Active Anxiety Disorder Active Esophageal Reflux Active Hyperlipidemia Active Diverticulitis Active Diverticulosis Of Colon Active 09/07/2012 Low back pain Active 03/09/2013 [...] hands Active 08/03/2016 Pulmonary hypertension Active 08/20/2016 Vital Signs Date Time BP-Sys(mm[Hg] BP-Zaynab(mm[Hg]) HR(bpm) RR(rpm) Temp WT HT HC BMI BSA BMI Percentile O2 Sat(%) 10/04/2016 11:06:00 AM 118 mmHg 80 mmHg [...] rpm 97.9 F 195 lbs 65 in 32.45 kg/m2 2.01 m2 91 % 07/05/2015 1:17:00 PM 160 mmHg 88 mmHg 92 bpm 18 rpm 98.2 F 192 lbs 91 % 06/09/2015 9:21:00 AM 150 mmHg 84 mmHg 100 bpm 18 rpm 98.2 F 188 lbs 65 in 31.28 kg/m2 1.98 m2 91 % 05/12/2015 10:03:00 AM 148 mmHg 80 mmHg 94 bpm 20 rpm 97 F 188 lbs 65 in 31.2845 kg/m 1.9776 m 92 % 03/25/2015 10:00:00 AM 118 mmHg 68 mmHg 80 bpm 18 rpm 98 F 172 lbs 64 in 29.52 kg/m2 1.88 m2 99 % 01/28/2015 10:51:00 AM 140 mmHg 82 mmHg 94 bpm 18 rpm 98 F 175 lbs 65 in 29.1212 kg/m 1.908 m 98 % 01/24/2015 8:19:00 AM 120 mmHg 72 mmHg 90 bpm 16 rpm 97.4 F 176 lbs 65 in 29.29 kg/m2 1.91 m2 94 % 01/04/2015 9:05:00 AM 140 mmHg 80 mmHg 94 bpm 20 rpm 98.5 F 178 lbs 64 in 30.5533 kg/m 1.9094 m 93 % 11/17/2014 11:40:00 AM 135 mmHg 70 mmHg 94 bpm 18 rpm 97.9 F 171 lbs 64 in 29.35 kg/m2 1.87 m2 94 % 08/13/2014 11:37:00 AM 125 mmHg 70 mmHg 80 bpm 20 rpm 98 F 159 lbs 64 in 27.292 kg/m 1.8046 m 94 % 07/05/2014 10:03:00 AM 140 mmHg 90 mmHg 94 bpm 20 rpm 98 F 159 lbs 64.5 in 26.87 kg/m2 1.81 m2 95 % 05/14/2014 10:24:00 AM 140 mmHg 80 mmHg 82 bpm 16 rpm 97.6 F 158 lbs 65 in 26.2923 kg/m 1.8129 m 96 % 05/11/2014 9:53:00 AM 136 mmHg 74 mmHg 98 bpm 20 rpm 97.8 F 158 lbs 65 in 26.29 kg/m2 1.81 m2 95 % 04/21/2014 10:12:00 AM 150 mmHg 80 mmHg 96 bpm 20 rpm 96.9 F 157 lbs 65 in 26.1259 kg/m 1.8072 m 91 % 02/18/2014 8:53:00 AM 162 mmHg 80 mmHg 90 bpm 20 rpm 98.3 F 156 lbs 65 in 25.96 kg/m2 1.80 m2 94 % 12/01/2013 11:22:00 AM 156 mmHg 80 mmHg 93 bpm 18 rpm 157.25 lbs 65 in 26.1675 kg/m 1.8086 m 92 % 08/27/2013 10:13:00 AM 160 mmHg 80 mmHg 94 bpm 20 rpm 97.2 F 155 lbs 64 in 26.61 kg/m2 1.78 m2 92 % 06/19/2013 10:11:00 AM 136 mmHg 72 mmHg 80 bpm 20 rpm 98 F 153 lbs 64 in 26.2621 kg/m 1.7703 m 94 % 06/01/2013 10:13:00 AM 140 mmHg 80 mmHg 92 bpm 20 rpm 98.1 F 154 lbs 64 in 26.43 kg/m2 1.78 m2 95 % 03/06/2013 10:31:00 AM 130 mmHg 60 mmHg 90 bpm 18 rpm 96.8 F 152 lbs 64 in 26.0905 kg/m 1.7645 m 94 % 12/02/2012 10:09:00 AM 128 mmHg 88 mmHg 86 bpm 18 rpm 97.3 F 157 lbs 65 in 26.13 kg/m2 1.81 m2 93 % 10/27/2012 10:27:00 AM 130 mmHg 80 mmHg 90 bpm 96 F 158 lbs 65 in 26.2923 kg/m 1.8129 m 91 % 09/04/2012 10:56:00 AM 150 mmHg 80 mmHg 88 bpm 16 rpm 97.8 F 158 lbs 64 in 27.12 kg/m2 1.80 m2 95 % 08/18/2012 10:14:00 AM 130 mmHg 68 mmHg 72 bpm 18 rpm 97.5 F 158 lbs 64 in 27.1204 kg/m 1.7989 m 95 % 05/20/2012 10:56:00 AM 136 mmHg 68 mmHg 82 bpm 20 rpm 98.6 F 158 lbs 64 in 27.12 kg/m2 1.80 m2 94 % 04/17/2012 6:47:00 PM 122 mmHg 64 mmHg 84 bpm 18 rpm 98.4 F 156 lbs 64 in 26.7771 kg/m 1.7875 m 94 % 04/17/2012 10:45:00 AM 122 mmHg 64 mmHg 84 bpm 18 rpm 98.4 F 156 lbs 64 in 26.78 kg/m2 1.79 m2 94 % 03/11/2012 1:17:00 PM 118 mmHg 82 mmHg 93 bpm 20 rpm 97.5 F 157.187 lbs 64 in 26.9809 kg/m 1.7943 m 93 % 10/30/2011 9:33:00 AM 124 mmHg 82 mmHg 86 bpm 154 lbs 64 in 26.43 kg/m2 1.78 m2 95 % 08/02/2011 9:52:00 AM 142 mmHg 86 mmHg 84 bpm 153 lbs 64 in 26.2621 kg/m 1.7703 m 02/28/2011 2:06:00 PM 130 mmHg 72 mmHg 72 bpm 20 rpm 154 lbs 64 in 26.43 kg/m2 1.78 m2 11/29/2010 10:13:00 AM 148 mmHg 84 mmHg [...] Reviewed 01/24/2015 12:00 AM Toradol 60 Mg [facility]#2814-0196-75 Reviewed 03/25/2015 12:00 AM Toradol 60 Mg [facility]#9241-7227-25 Reviewed 04/06/2015 12:00 AM MRI NECK SPINE W/O DYE Reviewed 05/27/2015 12:00 AM Decadron, Per 1 Mg [facility]# [address]-26 Reviewed 05/27/2015 12:00 AM Depo-Medrol, Per 80 Mg [facility]#5711-1534-74 Reviewed 05/27/2015 12:00 AM Rocephin 1 gram [facility]#3151-8213-83 Reviewed 02/26/2011 12:00 AM THER/PROPH/DIAG INJ SC/IM Reviewed 02/26/2011 12:00 AM Decadron Inj.1mg-([facility]) [facility] #[id number] Reviewed 02/26/2011 12:00 AM Depo-Medrol 80 Mg Im/[facility] [id number] Reviewed 12/15/2015 12:00 AM Rocephin 1 gram [facility]#6805-3802-58 Reviewed 06/03/2016 12:00 AM THERAPEUTIC PROPHYLACTIC/DX INJECTION SUBQ/IM Reviewed 06/03/2016 12:00 AM Decadron 8mg Injection, [facility] Medicare Reviewed 06/27/2016 12:00 AM COMPREHEN METABOLIC PANEL Returned 06/27/2016 12:00 AM URINALYSIS AUTO W/SCOPE Returned 07/05/2016 12:00 AM COMPREHEN METABOLIC PANEL Reviewed 07/12/2016 12:00 AM COMPREHEN METABOLIC PANEL Reviewed 07/23/2016 12:00 AM COMPREHEN METABOLIC PANEL Reviewed 09/07/2016 12:00 AM THERAPEUTIC PROPHYLACTIC/DX INJECTION SUBQ/IM Reviewed 09/07/2016 12:00 AM Rocephin 1 gram Injection, [facility] Medicare Reviewed 09/03/2016 12:00 AM THERAPEUTIC PROPHYLACTIC/DX INJECTION SUBQ/IM Reviewed 09/03/2016 12:00 AM Rocephin 1 gram Injection, [facility] Medicare Reviewed 03/11/2012 12:00 AM THER/PROPH/DIAG INJ SC/IM Reviewed 03/11/2012 12:00 AM Decadron, Per 1 Mg [facility]# [address]-08 Reviewed 03/11/2012 12:00 AM Depo-Medrol, Per 80 Mg [facility]#2844-6050-59 Reviewed 03/11/2012 12:00 AM Rocephin 1 gram [facility]#9646-5287-07 Reviewed 04/11/2012 12:00 AM Flu Injection 3 Years And Above [facility]# [address]-82 RHC Reviewed 10/27/2012 12:00 AM THER/PROPH/DIAG INJ SC/IM Reviewed 10/27/2012 12:00 AM Decadron, Per 1 Mg [facility]# [address]-29 Reviewed 10/27/2012 12:00 AM Depo-Medrol, Per 80 Mg [facility]#5453-4778-70 Reviewed 12/26/2012 12:00 AM COMPLETE CBC W/AUTO DIFF WBC Reviewed 12/26/2012 12:00 AM COMPREHEN METABOLIC PANEL Reviewed 12/26/2012 12:00 AM LIPID PANEL Reviewed 12/26/2012 12:00 AM ASSAY THYROID STIM HORMONE Reviewed 08/27/2013 12:00 AM THER/PROPH/DIAG INJ SC/IM Reviewed 08/27/2013 12:00 AM Toradol 60 Mg [facility]#9047-4241-73 Reviewed 12/01/2013 12:00 AM THER/PROPH/DIAG INJ SC/IM Reviewed 12/01/2013 12:00 AM Toradol 60 Mg [facility]#8785-7915-67 Reviewed 07/17/2010 12:00 AM THER/PROPH/DIAG INJ SC/IM Reviewed 07/17/2010 12:00 AM Decadron Inj.6mg-([facility]) [facility] #[id number] Reviewed 07/17/2010 12:00 AM Depo-Medrol 120 Mg Im/[facility] [id number] Reviewed 04/21/2014 12:00 AM IMMUNIZATION ADMIN Reviewed 04/21/2014 12:00 AM THER/PROPH/DIAG INJ SC/IM Reviewed 04/21/2014 12:00 AM Decadron, Per 1 Mg [facility]# [address]-91 Reviewed 04/21/2014 12:00 AM Depo-Medrol, Per 80 Mg [facility]#2979-2936-37 Reviewed 05/14/2014 12:00 AM THER/PROPH/DIAG INJ SC/IM Reviewed 05/14/2014 12:00 AM Decadron, Per 1 Mg [facility]# [address]-02 Reviewed 05/14/2014 12:00 AM Depo-Medrol, Per 80 Mg [facility]#9132-3112-86 Reviewed 07/05/2014 12:00 AM THER/PROPH/DIAG INJ SC/IM Reviewed 07/05/2014 12:00 AM Decadron, Per 1 Mg [facility]# [address]-39 Reviewed 07/05/2014 12:00 AM Rocephin 1 gram [facility]#8254-7620-08 Reviewed Results Summary Date and Description Results [...] AA 87 eGFR >60 mL/min/1.73meGFR AA* >60 03/22/2016 11:05 AM LACTIC ACID 2.1 mmol/L History Of Immunizations Name Date Admin Mfg Name Mfg Code Trade Name Lot# Route Inj Vis Given Vis Pub CVX Influenza 03/02/2014 Not Entered NE Not Entered Not Entered Not Entered 03/02/2014 05/06/2016 141 History of Past Illness Name Date of Onset Comments Cellulitis Feb 15 2010 10:11AM Actinic Keratosis Jul 22 2009 9:55AM Gastroesophageal Reflux Esophageal Reflux Hyperlipidemia Anxiety Disorder Diverticulitis Diverticulosis Of Colon 09/07/2012 Low back pain 03/09/2013 Osteoarthrosis, generalized, [...] of both hands 08/03/2016 Pulmonary hypertension 08/20/2016 Irritable Bowel Syndrome Nov 29 2010 10:16AM Seasonal Allergies Feb 28 2011 2:02PM Costochondritis [...] breath on exertion Oct 04 2016 11:08AM Payers Insurance Name Company Name Plan Name Plan Number Policy Number Policy Group Number Start Date Medicare RHC Medicare RHC [id number] N/A [employer] - RHC [employer] - RHC [id number] N/A Medicare Part A Medicare - Lab/Xray [id number] N/A Medicare Part B Medicare Of [place] [id number] N/A [place] [employer] [facility] [place] [employer] [id number] N/A Medicare Part A Medicare Part A [id number] N/A History of Encounters Visit Date Visit Type Provider 10/04/2016 Office visit ELOY BRITT 09/17/2016 Office visit ELOY BRITT 09/07/2016 Office visit ELOY BRITT 09/03/2016 Office visit ELOY BRITT 08/20/2016 Office visit ELOY BRITT 08/15/2016 Office visit ELOY BRITT 08/09/2016 Office visit ELOY BRITT 07/27/2016 Office visit ELOY BRITT 07/18/2016 Office visit ELOY BRITT 07/16/2016 Office visit ELOY BRITT 07/06/2016 Office visit ELOY BRITT 06/29/2016 Office visit ELOY BRITT 06/26/2016 Office visit ELOY BRITT 06/03/2016 Office visit ELOY BRITT 05/31/2016 Office visit ELOY BRITT 05/14/2016 Office visit ELOY BRITT 04/17/2016 Office visit ELOY BRITT 04/02/2016 Office visit ELOY BRITT 03/22/2016 Hospital Jhony Phelps MD 03/22/2016 [facility] Mukul Lopez MD 12/15/2015 Office visit [...] ELOY AHUMADA PA 06/01/2013 Office visit ELOY BRITT 03/06/2013 Office visit ELOY AHUMADA PA 12/02/2012 [...] Eloy Ahumada PA-C 02/18/2009 Office visit [facility]oy [facility]
--- OUTSIDE RECORDS SUMMARY | 2018-01-13 11:11 | XMS REPORT ---
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 Phone ELOY AHUMADA PCP Unavailable ELOY AHUMADA PreferredProvider Unavailable Allergies and Adverse Reactions Name Reaction Notes Depo-Medrol Pain, muscle spasms, insomnia Decadron Pain, Muscle spasms, insomnia Plan of Treatment Planned Activity Comments Planned Date Planned Time Plan/Goal BNP 05/15/2016 12:00 AM CMP 10/18/2016 12:00 AM BNP 11/16/2016 12:00 AM Injection,Subcutaneous/Intramuscul, [facility] Medicare 11/30/2016 12:00 AM Aerosol Tx 11/30/2016 12:00 AM cervical pain 06/15/2015 11:00 AM [...] oral route once daily for 30 days albuterol sulfate 2.5 mg /3 mL (0.083 %) inhalation solution for nebulization 04/17/2016 used in Small Volume Nebulizer QID PRN Symbicort 160-4.5 mcg/actuation inhalation HFA aerosol inhaler 07/27/2016 inhale 2 puffs by inhalation route 2 times per day in the morning and evening potassium chloride 10 mEq oral tablet,ER particles/crystals 10/10/2016 TAKE ONE TABLET BY MOUTH DAILY potassium chloride 10 mEq oral tablet,ER particles/crystals 10/10/2016 TAKE ONE TABLET BY MOUTH DAILY nystatin 100,000 unit/mL oral suspension 10/12/2016 take 4 milliliters (400, 000 unit) by oral route 4 times per day Percocet 5-325 mg oral tablet 11/01/2016 take 1 tablet by oral route every 6 hours as needed Xanax 0.5 mg oral tablet 11/01/2016 take 1 tablet (0.5 mg) by oral route 3 times per day amlodipine 5 mg oral tablet 11/05/2016 take 1 tablet (5 mg) by oral route once daily for 30 days Sinemet 10-100 mg oral tablet 11/05/2016 take 1 tablet by oral route 3 times per day for 30 days furosemide 20 mg oral tablet 11/28/2016 As directed furosemide 20 mg oral tablet 11/28/2016 As directed Levaquin 750 mg oral tablet 11/30/2016 12/07/2016 take 1 tablet (750 mg) by oral route once daily for 7 days Name Start Date Expiration [...] tablets,dose pack 08/29/2016 11/29/2016 take as directed Problem List Description Status Onset [...] Pulmonary emphysema, unspecified emphysema type Active 11/24/2016 Vital Signs Date Time BP-Sys(mm[Hg] BP-Zaynab(mm[Hg]) HR(bpm) RR(rpm) Temp WT HT HC BMI BSA BMI Percentile O2 Sat(%) 11/30/2016 9:54:00 AM 122 mmHg 72 mmHg 121 bpm 20 rpm 97.7 F 64 in 97 % 11/29/2016 5:18:00 PM 126 mmHg 70 mmHg 84 bpm 16 rpm 96.7 F 207 lbs 99 % 11/16/2016 10:00:00 AM 110 mmHg 66 mmHg 94 bpm 20 rpm 207 lbs 64 in 35.53 kg/m2 2.06 m2 94 % 11/02/2016 8:36:00 AM 110 mmHg 58 mmHg 86 bpm 16 rpm 93.9 F 209 lbs 64 in 35.8744 kg/m 2.069 m 99 % 10/25/2016 1:11:00 PM 122 mmHg 60 mmHg 95 bpm 16 rpm 97.7 F 211 lbs 64 in 36.22 kg/m2 2.08 m2 100 % 10/18/2016 11:50:00 AM 118 mmHg 64 mmHg 87 bpm 16 rpm 97.2 F 210 lbs 64 in 36.046 kg/m 2.074 m 95 % 10/04/2016 11:06:00 AM 118 mmHg [...] F 195 lbs 65 in 32.4494 kg/m 2.01 m2 91 % 07/05/2015 1:17:00 PM 160 mmHg 88 mmHg 92 bpm 18 rpm 98.2 F 192 lbs 91 % 06/09/2015 9:21:00 AM 150 mmHg 84 mmHg 100 bpm 18 rpm 98.2 F 188 lbs 65 in 31.2845 kg/m 1.98 m2 91 % 05/12/2015 10:03:00 AM 148 mmHg 80 mmHg 94 bpm 20 rpm 97 F 188 lbs 65 in 31.28 kg/m2 1.9776 m 92 % 03/25/2015 10:00:00 AM 118 mmHg 68 mmHg 80 bpm 18 rpm 98 F 172 lbs 64 in 29.5234 kg/m 1.88 m2 99 % 01/28/2015 10:51:00 AM 140 mmHg 82 mmHg 94 bpm 18 rpm 98 F 175 lbs 65 in 29.12 kg/m2 1.908 m 98 % 01/24/2015 8:19:00 AM 120 mmHg 72 mmHg 90 bpm 16 rpm 97.4 F 176 lbs 65 in 29.2876 kg/m 1.91 m2 94 % 01/04/2015 9:05:00 AM 140 mmHg 80 mmHg 94 bpm 20 rpm 98.5 F 178 lbs 64 in 30.55 kg/m2 1.9094 m 93 % 11/17/2014 11:40:00 AM 135 mmHg 70 mmHg 94 bpm 18 rpm 97.9 F 171 lbs 64 in 29.3518 kg/m 1.87 m2 94 % 08/13/2014 11:37:00 AM 125 mmHg 70 mmHg 80 bpm 20 rpm 98 F 159 lbs 64 in 27.29 kg/m2 1.8046 m 94 % 07/05/2014 10:03:00 AM 140 mmHg 90 mmHg 94 bpm 20 rpm 98 F 159 lbs 64.5 in 26.8705 kg/m 1.81 m2 95 % 05/14/2014 10:24:00 AM 140 mmHg 80 mmHg 82 bpm 16 rpm 97.6 F 158 lbs 65 in 26.29 kg/m2 1.8129 m 96 % 05/11/2014 9:53:00 AM 136 mmHg 74 mmHg 98 bpm 20 rpm 97.8 F 158 lbs 65 in 26.2923 kg/m 1.81 m2 95 % 04/21/2014 10:12:00 AM 150 mmHg 80 mmHg 96 bpm 20 rpm 96.9 F 157 lbs 65 in 26.13 kg/m2 1.8072 m 91 % 02/18/2014 8:53:00 AM 162 mmHg 80 mmHg 90 bpm 20 rpm 98.3 F 156 lbs 65 in 25.9595 kg/m 1.80 m2 94 % 12/01/2013 11:22:00 AM 156 mmHg 80 mmHg 93 bpm 18 rpm 157.25 lbs 65 in 26.17 kg/m2 1.8086 m 92 % 08/27/2013 10:13:00 AM 160 mmHg 80 mmHg 94 bpm 20 rpm 97.2 F 155 lbs 64 in 26.6054 kg/m 1.78 m2 92 % 06/19/2013 10:11:00 AM 136 mmHg 72 mmHg 80 bpm 20 rpm 98 F 153 lbs 64 in 26.26 kg/m2 1.7703 m 94 % 06/01/2013 10:13:00 AM 140 mmHg 80 mmHg 92 bpm 20 rpm 98.1 F 154 lbs 64 in 26.4338 kg/m 1.78 m2 95 % 03/06/2013 10:31:00 AM 130 mmHg 60 mmHg 90 bpm 18 rpm 96.8 F 152 lbs 64 in 26.09 kg/m2 1.7645 m 94 % 12/02/2012 10:09:00 AM 128 mmHg 88 mmHg 86 bpm 18 rpm 97.3 F 157 lbs 65 in 26.1259 kg/m 1.81 m2 93 % 10/27/2012 10:27:00 AM 130 mmHg 80 mmHg 90 bpm 96 F 158 lbs 65 in 26.29 kg/m2 1.8129 m 91 % 09/04/2012 10:56:00 AM 150 mmHg 80 mmHg 88 bpm 16 rpm 97.8 F 158 lbs 64 in 27.1204 kg/m 1.80 m2 95 % 08/18/2012 10:14:00 AM 130 mmHg 68 mmHg 72 bpm 18 rpm 97.5 F 158 lbs 64 in 27.12 kg/m2 1.7989 m 95 % 05/20/2012 10:56:00 AM 136 mmHg 68 mmHg 82 bpm 20 rpm 98.6 F 158 lbs 64 in 27.1204 kg/m 1.80 m2 94 % 04/17/2012 6:47:00 PM 122 mmHg 64 mmHg 84 bpm 18 rpm 98.4 F 156 lbs 64 in 26.78 kg/m2 1.7875 m 94 % 04/17/2012 10:45:00 AM 122 mmHg 64 mmHg 84 bpm 18 rpm 98.4 F 156 lbs 64 in 26.7771 kg/m 1.79 m2 94 % 03/11/2012 1:17:00 PM 118 mmHg 82 mmHg 93 bpm 20 rpm 97.5 F 157.187 lbs 64 in 26.98 kg/m2 1.7943 m 93 % 10/30/2011 9:33:00 AM 124 mmHg 82 mmHg 86 bpm 154 lbs 64 in 26.4338 kg/m 1.78 m2 95 % 08/02/2011 9:52:00 AM 142 mmHg 86 mmHg 84 bpm 153 lbs 64 in 26.26 kg/m2 1.7703 m 02/28/2011 2:06:00 PM 130 mmHg 72 mmHg 72 bpm 20 rpm 154 lbs 64 in 26.4338 kg/m 1.78 m2 11/29/2010 10:13:00 AM 148 mmHg [...] Reviewed 01/24/2015 12:00 AM Toradol 60 Mg [place]#9550-0572-48 Reviewed 03/25/2015 12:00 AM Toradol 60 Mg ND#7253-4310-70 Reviewed 04/06/2015 12:00 AM MRI NECK SPINE W/O DYE Reviewed 05/27/2015 12:00 AM Decadron, Per 1 Mg [facility]# [address]-82 Reviewed 05/27/2015 12:00 AM Depo-Medrol, Per 80 Mg [facility]#7213-9612-28 Reviewed 05/27/2015 12:00 AM Rocephin 1 gram [facility]#1647-4267-83 Reviewed 02/26/2011 12:00 AM THER/PROPH/DIAG INJ SC/IM Reviewed 02/26/2011 12:00 AM Decadron Inj.1mg-([facility]) [facility] #[id number] Reviewed 02/26/2011 12:00 AM Depo-Medrol 80 Mg Im/[facility] [id number] Reviewed 12/15/2015 12:00 AM Rocephin 1 gram [facility]#5451-7665-04 Reviewed 06/03/2016 12:00 AM THERAPEUTIC PROPHYLACTIC/DX INJECTION SUBQ/IM Reviewed 06/03/2016 12:00 AM Decadron 8mg Injection, [facility] Medicare Reviewed 06/27/2016 12:00 AM COMPREHEN METABOLIC PANEL Returned 06/27/2016 12:00 AM URINALYSIS AUTO W/SCOPE Returned 07/05/2016 12:00 AM COMPREHEN METABOLIC PANEL Reviewed 07/12/2016 12:00 AM COMPREHEN METABOLIC PANEL Reviewed 07/23/2016 12:00 AM COMPREHEN METABOLIC PANEL Reviewed 09/07/2016 12:00 AM THERAPEUTIC PROPHYLACTIC/DX INJECTION SUBQ/IM Reviewed 09/07/2016 12:00 AM Rocephin 1 gram Injection, [facility] Medicare Reviewed 09/03/2016 12:00 AM THERAPEUTIC PROPHYLACTIC/DX INJECTION SUBQ/IM Reviewed 09/03/2016 12:00 AM Rocephin 1 gram Injection, [facility] Medicare Reviewed 10/22/2016 12:00 AM THERAPEUTIC PROPHYLACTIC/DX INJECTION SUBQ/IM Reviewed 10/18/2016 12:00 AM Lasix, Up to 20 Mg [facility]#3368-0848-05 [facility] Medicare Reviewed 03/11/2012 12:00 AM THER/PROPH/DIAG INJ SC/IM Reviewed 03/11/2012 12:00 AM Decadron, Per 1 Mg [facility]# [address]-25 Reviewed 03/11/2012 12:00 AM Depo-Medrol, Per 80 Mg [facility]#0376-7012-29 Reviewed 03/11/2012 12:00 AM Rocephin 1 gram [facility]#7201-3579-68 Reviewed 04/11/2012 12:00 AM Flu Injection 3 Years And Above [facility]# [address]-61 [facility] Reviewed 10/27/2012 12:00 AM THER/PROPH/DIAG INJ SC/IM Reviewed 10/27/2012 12:00 AM Decadron, Per 1 Mg [facility]# [address]-37 Reviewed 10/27/2012 12:00 AM Depo-Medrol, Per 80 Mg [facility]#9089-5471-78 Reviewed 12/26/2012 12:00 AM COMPLETE CBC W/AUTO DIFF WBC Reviewed 12/26/2012 12:00 AM COMPREHEN METABOLIC PANEL Reviewed 12/26/2012 12:00 AM LIPID PANEL Reviewed 12/26/2012 12:00 AM ASSAY THYROID STIM HORMONE Reviewed 08/27/2013 12:00 AM THER/PROPH/DIAG INJ SC/IM Reviewed 08/27/2013 12:00 AM Toradol 60 Mg [facility]#3294-2567-38 Reviewed 12/01/2013 12:00 AM THER/PROPH/DIAG INJ SC/IM Reviewed 12/01/2013 12:00 AM Toradol 60 Mg [facility]#5270-7986-50 Reviewed 07/17/2010 12:00 AM THER/PROPH/DIAG INJ SC/IM Reviewed 07/17/2010 12:00 AM Decadron Inj.6mg-([facility]) [facility] #[id number] Reviewed 07/17/2010 12:00 AM Depo-Medrol 120 Mg Im/[facility] [id number] Reviewed 04/21/2014 12:00 AM IMMUNIZATION ADMIN Reviewed 04/21/2014 12:00 AM THER/PROPH/DIAG INJ SC/IM Reviewed 04/21/2014 12:00 AM Decadron, Per 1 Mg [facility]# [address]-58 Reviewed 04/21/2014 12:00 AM Depo-Medrol, Per 80 Mg [facility]#8219-3181-98 Reviewed 05/14/2014 12:00 AM THER/PROPH/DIAG INJ SC/IM Reviewed 05/14/2014 12:00 AM Decadron, Per 1 Mg [facility]# [address]-88 Reviewed 05/14/2014 12:00 AM Depo-Medrol, Per 80 Mg [facility]#4471-6373-43 Reviewed 07/05/2014 12:00 AM THER/PROPH/DIAG INJ SC/IM Reviewed 07/05/2014 12:00 AM Decadron, Per 1 Mg [facility]# [address]-23 Reviewed 07/05/2014 12:00 AM Rocephin 1 gram [facility]#7274-7684-33 Reviewed Results Summary Date and Description Results [...] attacks Jun 29 2016 11:22AM Peripheral edema b 2016 11:22AM Moderate Chronic Physical deconditioning Worsening Jun 29 2016 11:22AM Hypoxemia b 2016 11:22AM Dependence on supplemental oxygen Jun [...] breath on exertion Nov 30 2016 9:55AM Payers Insurance Name Company Name Plan Name Plan Number Policy Number Policy Group Number Start Date Medicare RHC Medicare [facility] [id number] N/A [place] [employer] - RHC [place] [employer] - C [id number] N/A Medicare Part A Medicare - Lab/Xray [id number] N/A Medicare Part B Medicare Of [place] [id number] N/A [place] [employer] [place] [employer] [id number] N/A Medicare Part A Medicare Part A [id number] N/A History of Encounters Visit Date Visit Type Provider 11/30/2016 Office visit ELOY BRITT 11/29/2016 Office visit ELOY AHUMADA PA 11/16/2016 Office visit ELOY AHUMADA PA 11/01/2016 Office visit ELOY AHUMADA PA 10/25/2016 Office visit ELOY AHUMADA PA 10/18/2016 Office visit ELOY AHUMADA PA 10/04/2016 Office visit ELOY AHUMADA PA 09/17/2016 Office visit ELOY AHUMADA PA 09/07/2016 Office visit ELOY BRITT 09/03/2016 Office visit ELOY BRITT 08/20/2016 Office visit ELOY BRITT 08/15/2016 Office visit ELOY AHUMADA PA 08/09/2016 Office visit ELOY AHUMADA PA 07/27/2016 Office visit ELOY BRITT 07/18/2016 Office visit ELOY AHUMADA PA 07/16/2016 [...] PA 03/22/2016 Hospital Jhony Phelps MD 03/22/2016 [facility] Mukul Lopez MD 12/15/2015 Office visit ELOY AHUMADA PA 10/24/2015 Office visit ELOY AHUMADA PA 10/11/2015 Office visit ELOY AHUMADA PA 07/05/2015 Office visit ELOY BRITT 06/09/2015 Office visit ELOY AHUMADA PA 05/12/2015 [...]
--- OUTSIDE RECORDS SUMMARY | 2018-01-13 11:13 | XMS REPORT ---
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 Phone ELOY AHUMADA PCP Unavailable ELOY AHUMADA PreferredProvider Unavailable Allergies and Adverse Reactions Name Reaction Notes Depo-Medrol Pain, muscle spasms, insomnia Decadron Pain, Muscle spasms, insomnia Plan of Treatment Planned Activity Comments Planned Date Planned Time Plan/Goal BNP 05/15/2016 12:00 AM CMP 10/18/2016 12:00 AM Injection,Subcutaneous/Intramuscul, [facility] Medicare 10/22/2016 12:00 AM cervical pain 06/15/2015 11:00 AM [...] mg oral tablet 06/29/2016 daily as directed Symbicort 160-4.5 mcg/actuation inhalation HFA aerosol inhaler [...] by oral route 3 times per day potassium chloride 10 mEq oral tablet,ER particles/crystals 10/10/2016 TAKE ONE TABLET BY MOUTH DAILY potassium chloride 10 mEq oral tablet,ER particles/crystals 10/10/2016 TAKE ONE TABLET BY MOUTH DAILY nystatin 100,000 unit/mL oral suspension 10/12/2016 take 4 milliliters (400, 000 unit) by oral route 4 times per day Name Start Date Expiration [...] 3 times per day for 30 days Zithromax Z-Jerome 250 [...] HC BMI BSA BMI Percentile O2 Sat(%) 10/18/2016 11:50:00 AM 118 mmHg 64 mmHg 87 bpm 16 rpm 97.2 F 210 lbs 64 in 36.05 kg/m2 2.07 m2 95 % 10/04/2016 11:06:00 AM 118 mmHg 80 mmHg 90 bpm 16 rpm 97.3 F 208 lbs 86 % 09/17/2016 1:47:00 PM 125 mmHg 62 mmHg 90 bpm 20 rpm 98.2 F 201 lbs 62 in 36.763 kg/m 2.00 m2 91 % 09/07/2016 11:31:00 AM 122 mmHg 74 mmHg 82 bpm 20 rpm 98 F 203 lbs 95 % 09/03/2016 11:26:00 AM 132 mmHg 78 mmHg 88 bpm 18 rpm 97.1 F 203 lbs 64 in 34.8445 kg/m 2.04 m2 94 % 08/20/2016 1:15:00 PM 118 mmHg 80 mmHg 68 bpm 18 rpm 97.5 F 210 lbs 64 in 36.05 kg/m2 2.074 m 94 % 08/15/2016 1:03:00 PM 102 mmHg 60 mmHg 82 bpm 18 rpm 98.2 F 209 lbs 64 in 35.8744 kg/m 2.07 m2 95 % 08/09/2016 12:06:00 PM 116 mmHg 70 mmHg 82 bpm 18 rpm 97.5 F 208 lbs 64 in 35.70 kg/m2 2.0641 m 97 % 08/01/2016 12:23:00 PM 128 mmHg 74 mmHg 82 bpm 97 rpm 97.6 F 208 lbs 64 in 35.7028 kg/m 2.06 m2 94 % 07/27/2016 12:12:00 PM 125 mmHg 62 mmHg 88 bpm 20 rpm 97.2 F 207 lbs 64 in 35.53 kg/m2 2.0591 m 94 % 07/18/2016 2:43:00 PM 118 mmHg 64 mmHg 84 bpm 18 rpm 98.2 F 207 lbs 64 in 35.5311 kg/m 2.06 m2 95 % 07/06/2016 11:23:00 AM 95 mmHg 70 mmHg 82 bpm 18 rpm 98.4 F 209 lbs 64 in 35.87 kg/m2 2.069 m 95 % 06/29/2016 11:21:00 AM 130 mmHg 80 mmHg 76 bpm 16 rpm 98.2 F 209.312 lbs 64 in 35.928 kg/m 2.07 m2 96 % 06/26/2016 4:39:00 PM 100 mmHg 62 mmHg 86 bpm 18 rpm 98 F 214 lbs 94 % 06/04/2016 6:45:00 AM 110 mmHg 74 mmHg 72 bpm 20 rpm 98.2 F 211 lbs 65 in 35.1119 kg/m 2.10 m2 98 % 05/31/2016 11:12:00 AM 126 mmHg 78 mmHg 96 bpm 18 rpm 96.9 F 211 lbs 65 in 35.11 kg/m2 2.0951 m 96 % 05/14/2016 11:06:00 AM 106 mmHg 60 mmHg 100 bpm 18 rpm 96.8 F 207 lbs 65 in 34.4462 kg/m 2.08 m2 96 % 04/17/2016 12:43:00 PM 170 mmHg 85 mmHg 98 bpm 16 rpm 97.4 F 214 lbs 89 % 04/02/2016 10:39:00 AM 130 mmHg 80 mmHg 104 bpm 18 rpm 97.8 F 210 lbs 65 in 34.9455 kg/m 2.09 m2 90 % 12/15/2015 10:08:00 AM 128 mmHg 70 mmHg 84 bpm 16 rpm 98 F 199 lbs 64 in 34.16 kg/m2 2.0189 m 92 % 10/24/2015 11:24:00 AM 145 mmHg 88 mmHg 88 bpm 16 rpm 98.2 F 196 lbs 90 % 10/11/2015 10:21:00 AM 118 mmHg 72 mmHg 99 bpm 16 rpm 97.9 F 195 lbs 65 in 32.45 kg/m2 2.0141 m 91 % 07/05/2015 1:17:00 PM 160 mmHg 88 mmHg 92 bpm 18 rpm 98.2 F 192 lbs 91 % 06/09/2015 9:21:00 AM 150 mmHg 84 mmHg 100 bpm 18 rpm 98.2 F 188 lbs 65 in 31.28 kg/m2 1.9776 m 91 % 05/12/2015 10:03:00 AM 148 mmHg 80 mmHg 94 bpm 20 rpm 97 F 188 lbs 65 in 31.2845 kg/m 1.98 m2 92 % 03/25/2015 10:00:00 AM 118 mmHg 68 mmHg 80 bpm 18 rpm 98 F 172 lbs 64 in 29.52 kg/m2 1.877 m 99 % 01/28/2015 10:51:00 AM 140 mmHg 82 mmHg 94 bpm 18 rpm 98 F 175 lbs 65 in 29.1212 kg/m 1.91 m2 98 % 01/24/2015 8:19:00 AM 120 mmHg 72 mmHg 90 bpm 16 rpm 97.4 F 176 lbs 65 in 29.29 kg/m2 1.9134 m 94 % 01/04/2015 9:05:00 AM 140 mmHg 80 mmHg 94 bpm 20 rpm 98.5 F 178 lbs 64 in 30.5533 kg/m 1.91 m2 93 % 11/17/2014 11:40:00 AM 135 mmHg 70 mmHg 94 bpm 18 rpm 97.9 F 171 lbs 64 in 29.35 kg/m2 1.8715 m 94 % 08/13/2014 11:37:00 AM 125 mmHg 70 mmHg 80 bpm 20 rpm 98 F 159 lbs 64 in 27.292 kg/m 1.80 m2 94 % 07/05/2014 10:03:00 AM 140 mmHg 90 mmHg 94 bpm 20 rpm 98 F 159 lbs 64.5 in 26.87 kg/m2 1.8117 m 95 % 05/14/2014 10:24:00 AM 140 mmHg 80 mmHg 82 bpm 16 rpm 97.6 F 158 lbs 65 in 26.2923 kg/m 1.81 m2 96 % 05/11/2014 9:53:00 AM 136 mmHg 74 mmHg 98 bpm 20 rpm 97.8 F 158 lbs 65 in 26.29 kg/m2 1.8129 m 95 % 04/21/2014 10:12:00 AM 150 mmHg 80 mmHg 96 bpm 20 rpm 96.9 F 157 lbs 65 in 26.1259 kg/m 1.81 m2 91 % 02/18/2014 8:53:00 AM 162 mmHg 80 mmHg 90 bpm 20 rpm 98.3 F 156 lbs 65 in 25.96 kg/m2 1.8014 m 94 % 12/01/2013 11:22:00 AM 156 mmHg 80 mmHg 93 bpm 18 rpm 157.25 lbs 65 in 26.1675 kg/m 1.81 m2 92 % 08/27/2013 10:13:00 AM 160 mmHg 80 mmHg 94 bpm 20 rpm 97.2 F 155 lbs 64 in 26.61 kg/m2 1.7818 m 92 % 06/19/2013 10:11:00 AM 136 mmHg 72 mmHg 80 bpm 20 rpm 98 F 153 lbs 64 in 26.2621 kg/m 1.77 m2 94 % 06/01/2013 10:13:00 AM 140 mmHg 80 mmHg 92 bpm 20 rpm 98.1 F 154 lbs 64 in 26.43 kg/m2 1.776 m 95 % 03/06/2013 10:31:00 AM 130 mmHg 60 mmHg 90 bpm 18 rpm 96.8 F 152 lbs 64 in 26.0905 kg/m 1.76 m2 94 % 12/02/2012 10:09:00 AM 128 mmHg 88 mmHg 86 bpm 18 rpm 97.3 F 157 lbs 65 in 26.13 kg/m2 1.8072 m 93 % 10/27/2012 10:27:00 AM 130 mmHg 80 mmHg 90 bpm 96 F 158 lbs 65 in 26.2923 kg/m 1.81 m2 91 % 09/04/2012 10:56:00 AM 150 mmHg 80 mmHg 88 bpm 16 rpm 97.8 F 158 lbs 64 in 27.12 kg/m2 1.7989 m 95 % 08/18/2012 10:14:00 AM 130 mmHg 68 mmHg 72 bpm 18 rpm 97.5 F 158 lbs 64 in 27.1204 kg/m 1.80 m2 95 % 05/20/2012 10:56:00 AM 136 mmHg 68 mmHg 82 bpm 20 rpm 98.6 F 158 lbs 64 in 27.12 kg/m2 1.7989 m 94 % 04/17/2012 6:47:00 PM 122 mmHg 64 mmHg 84 bpm 18 rpm 98.4 F 156 lbs 64 in 26.7771 kg/m 1.79 m2 94 % 04/17/2012 10:45:00 AM 122 mmHg 64 mmHg 84 bpm 18 rpm 98.4 F 156 lbs 64 in 26.78 kg/m2 1.7875 m 94 % 03/11/2012 1:17:00 PM [...] Reviewed 01/24/2015 12:00 AM Toradol 60 Mg [facility]#7852-7084-68 Reviewed 03/25/2015 12:00 AM Toradol 60 Mg [facility]#5212-5782-06 Reviewed 04/06/2015 12:00 AM MRI NECK SPINE W/O DYE Reviewed 05/27/2015 12:00 AM Decadron, Per 1 Mg [facility]# [address]-17 Reviewed 05/27/2015 12:00 AM Depo-Medrol, Per 80 Mg [facility]#0971-3403-62 Reviewed 05/27/2015 12:00 AM Rocephin 1 gram [facility]#5792-3547-68 Reviewed 02/26/2011 12:00 AM THER/PROPH/DIAG INJ SC/IM Reviewed 02/26/2011 12:00 AM Decadron Inj.1mg-([facility]) [facility] #[id number] Reviewed 02/26/2011 12:00 AM Depo-Medrol 80 Mg Im/[facility] 0009-394375 Reviewed 12/15/2015 12:00 AM Rocephin 1 gram [facility]#6965-0955-62 Reviewed 06/03/2016 12:00 AM THERAPEUTIC PROPHYLACTIC/DX INJECTION [...] 09/07/2016 12:00 AM Rocephin 1 gram Injection, [facility] Medicare Reviewed 09/03/2016 12:00 AM THERAPEUTIC PROPHYLACTIC/DX INJECTION SUBQ/IM Reviewed 09/03/2016 12:00 AM Rocephin 1 gram Injection, [facility] Medicare Reviewed 03/11/2012 12:00 AM THER/PROPH/DIAG INJ SC/IM Reviewed 03/11/2012 12:00 AM Decadron, Per 1 Mg [facility]# [address]-03 Reviewed 03/11/2012 12:00 AM Depo-Medrol, Per 80 Mg [facility]#7471-9202-21 Reviewed 03/11/2012 12:00 AM Rocephin 1 gram [facility]#0759-0184-71 Reviewed 04/11/2012 12:00 AM Flu Injection 3 Years And Above [facility]# [address]-79 [facility] Reviewed 10/27/2012 12:00 AM THER/PROPH/DIAG INJ SC/IM Reviewed 10/27/2012 12:00 AM Decadron, Per 1 Mg [facility]# [address]-90 Reviewed 10/27/2012 12:00 AM Depo-Medrol, Per 80 Mg [facility]#0366-7095-13 Reviewed 12/26/2012 12:00 AM COMPLETE CBC W/AUTO DIFF WBC Reviewed 12/26/2012 12:00 AM COMPREHEN METABOLIC PANEL Reviewed 12/26/2012 12:00 AM LIPID PANEL Reviewed 12/26/2012 12:00 AM ASSAY THYROID STIM HORMONE Reviewed 08/27/2013 12:00 AM THER/PROPH/DIAG INJ SC/IM Reviewed 08/27/2013 12:00 AM Toradol 60 Mg [facility]#3517-3680-73 Reviewed 12/01/2013 12:00 AM THER/PROPH/DIAG INJ SC/IM Reviewed 12/01/2013 12:00 AM Toradol 60 Mg [facility]#3046-5918-54 Reviewed 07/17/2010 12:00 AM THER/PROPH/DIAG INJ SC/IM Reviewed 07/17/2010 12:00 AM Decadron Inj.6mg-([facility]) [facility] #[id number] Reviewed 07/17/2010 12:00 AM Depo-Medrol 120 Mg Im/[facility] [phone] Reviewed 04/21/2014 12:00 AM IMMUNIZATION ADMIN Reviewed 04/21/2014 12:00 AM THER/PROPH/DIAG INJ SC/IM Reviewed 04/21/2014 12:00 AM Decadron, Per 1 Mg [facility]# [address]-96 Reviewed 04/21/2014 12:00 AM Depo-Medrol, Per 80 Mg [facility]#0609[address]-61 Reviewed 05/14/2014 12:00 AM THER/PROPH/DIAG INJ SC/IM Reviewed 05/14/2014 12:00 AM Decadron, Per 1 Mg [facility]# [address]-28 Reviewed 05/14/2014 12:00 AM Depo-Medrol, Per 80 Mg [facility]#4936-3962-96 Reviewed 07/05/2014 12:00 AM THER/PROPH/DIAG INJ SC/IM Reviewed 07/05/2014 12:00 AM Decadron, Per 1 Mg [facility]# [address]-93 Reviewed 07/05/2014 12:00 AM Rocephin 1 gram [facility]#0325-7170-03 Reviewed Results Summary Date and Description Results [...] Of Immunizations Name Date Admin Mfg Name [facility] Code Trade Name Lot# Route Inj Vis [...] breath on exertion Oct 18 2016 11:55AM Payers Insurance Name Company Name Plan Name Plan Number Policy Number Policy Group Number Start Date Medicare RHC Medicare RHC [id number] N/A [place] [employer] Prog - RHC [place] [employer] - RHC [id number] N/A Medicare Part A Medicare - Lab/Xray [id number] N/A Medicare Part B Medicare Of [place] [id number] N/A [place] [employer] [place] [employer] [id number] N/A Medicare Part A Medicare Part A [id number] N/A History of Encounters Visit Date Visit Type Provider 10/18/2016 Office visit ELOY AHUMADA PA 10/04/2016 [...] BRITT 03/22/2016 Hospital Jhony Phelps MD 03/22/2016 Hospital [...]
--- OUTSIDE RECORDS SUMMARY | 2018-01-13 11:14 | XMS REPORT ---
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 Medications Active Name Start Date Estimated Completion Date SIG Comments pantoprazole 40 mg oral tablet,delayed release (DR/EC) 03/05/2014 take 1 tablet (40 mg) by oral route once daily diazepam 5 mg oral tablet 02/18/2014 1/2 to 1 PO BID PRN anxiety fluticasone 50 mcg/actuation nasal spray,suspension 05/11/2014 1 SPRAY IN EACH NOSTRIL TWICE DAILY ipratropium-albuterol 0.5 mg-3 mg(2.5 mg base)/3 mL inhalation solution for nebulization 05/11/2014 inhale 3 milliliters by nebulization route 4 times per day and as needed, up to 6 doses per day promethazine-codeine 6.25-10 mg/5 mL oral syrup 11/29/2014 take 5 milliliters by oral route every 4-6 hours as needed, not to exceed 30 mL in 24 hours phentermine 37.5 mg oral tablet 01/04/2015 1/2 po in the am Percocet 5-325 mg oral tablet 01/29/2015 take 1 tablet by oral route every 6 hours as needed Name Start Date Expiration Date SIG Comments [...] days 3x2 days 2x2 days 1x2 days Nicoderm CQ 21 mg/24 hr transdermal patch 24 hour 08/10/2014 09/07/2014 apply 1 patch (21 mg) by transdermal route once daily for 4 weeks Biaxin 500 mg oral tablet 08/16/2014 08/26/2014 take 1 tablet by oral route 2 times a day for 10 days Zithromax Z-Jerome 250 mg oral tablet 11/29/2014 12/04/2014 take 2 tablets (500 mg ) by oral route once daily for 1 day then 1 tablet (250 mg) by oral route once daily for 4 days Discontinued Name Start Date Discontinued Date [...] by topical route 4 times per day Problem List Description Status Onset Gastroesophageal Reflux Active Anxiety Disorder Active Esophageal Reflux Active Hyperlipidemia Active Diverticulitis Active Diverticulosis Of Colon Active 09/07/2012 Low Back Pain Active 03/09/2013 Osteoarthrosis, generalized, multiple sites Active 03/09/2013 Tobacco Abuse Active 08/31/2013 Chronic Obstructive Pulmonary Disease Active 08/31/2013 Essential Hypertension Active 03/06/2014 Chronic back pain Active 01/29/2015 Cervicalgia Active 01/29/2015 Vital Signs Date Time BP-Sys(mm[Hg] BP-Zaynab(mm[Hg]) HR(bpm) RR(rpm) Temp WT HT HC BMI BSA BMI Percentile O2 Sat(%) 01/28/2015 10:51:00 AM 140 mmHg 82 mmHg [...] % Social History Name Description Comments Tobacco Current every day smoker denies alcohol use some college Active but no formal exercise Uses seatbelts History of Procedures Date Ordered Description Order Status 01/24/2015 12:00 AM COMPLETE CBC W/AUTO DIFF WBC Returned 01/24/2015 12:00 AM COMPREHEN METABOLIC PANEL Returned 01/24/2015 12:00 AM LIPID PANEL Returned 02/26/2011 12:00 AM THER/PROPH/DIAG INJ SC/IM Reviewed 02/26/2011 12:00 AM Decadron Inj.1mg-([facility]) [facility] #[id number] Reviewed 02/26/2011 12:00 AM Depo-Medrol 80 Mg Im/[facility] [id number] Reviewed 03/11/2012 12:00 AM THER/PROPH/DIAG INJ SC/IM Reviewed 03/11/2012 12:00 AM Decadron, Per 1 Mg [facility]# [address]-58 Reviewed 03/11/2012 12:00 AM Depo-Medrol, Per 80 Mg [facility]#4858-5480-21 Reviewed 03/11/2012 12:00 AM Rocephin 1 gram [facility]#1585-4232-72 Reviewed 04/11/2012 12:00 AM Flu Injection 3 Years And Above [facility]# [address]-93 [facility] Reviewed 10/27/2012 12:00 AM THER/PROPH/DIAG INJ SC/IM Reviewed 10/27/2012 12:00 AM Decadron, Per 1 Mg [facility]# [address]-66 Reviewed 10/27/2012 12:00 AM Depo-Medrol, Per 80 Mg [facility]#0246-0632-64 Reviewed 12/26/2012 12:00 AM COMPLETE CBC W/AUTO DIFF WBC Reviewed 12/26/2012 12:00 AM COMPREHEN METABOLIC PANEL Reviewed 12/26/2012 12:00 AM LIPID PANEL Reviewed 12/26/2012 12:00 AM ASSAY THYROID STIM HORMONE Reviewed 08/27/2013 12:00 AM THER/PROPH/DIAG INJ SC/IM Reviewed 08/27/2013 12:00 AM Toradol 60 Mg [facility]#9273-6144-37 Reviewed 12/01/2013 12:00 AM THER/PROPH/DIAG INJ SC/IM Reviewed 12/01/2013 12:00 AM Toradol 60 Mg [facility]#7026-9849-64 Reviewed 07/17/2010 12:00 AM THER/PROPH/DIAG INJ SC/IM Reviewed 07/17/2010 12:00 AM Decadron Inj.6mg-([facility]) [facility] #[id number] Reviewed 07/17/2010 12:00 AM Depo-Medrol 120 Mg Im/[facility] [phone] Reviewed 04/21/2014 12:00 AM IMMUNIZATION ADMIN Reviewed 04/21/2014 12:00 AM THER/PROPH/DIAG INJ SC/IM Reviewed 04/21/2014 12:00 AM Decadron, Per 1 Mg [facility]# [address]-96 Reviewed 04/21/2014 12:00 AM Depo-Medrol, Per 80 Mg [facility]#3760-0528-11 Reviewed 05/14/2014 12:00 AM THER/PROPH/DIAG INJ SC/IM Reviewed 05/14/2014 12:00 AM Decadron, Per 1 Mg [facility]# [address]-68 Reviewed 05/14/2014 12:00 AM Depo-Medrol, Per 80 Mg [facility]#5343-3400-54 Reviewed 07/05/2014 12:00 AM THER/PROPH/DIAG INJ SC/IM Reviewed 07/05/2014 12:00 AM Decadron, Per 1 Mg [facility]# [address]-30 Reviewed 07/05/2014 12:00 AM Rocephin 1 gram [facility]#4844-6236-59 Reviewed Results Summary Data and Description Results 01/24/2015 4:55 PM WBC 10.9 RBC 4.97 HGB 14.70 g/dLHCT 46.80 %MCV 94.0 fLMCH 29.60 pgMCHC 31.40 g/dLRDW CV 13.90 %MPV 11.60 fLPLT 251 %NEUT 72.20 %%LYMP 18.40 %%MONO 7.80 %%EOS 0.90 %%BASO 0.70 %#NEUT 7.83 #LYMP 2.00 #MONO 0.85 #EOS 0.10 #BASO 0.08 TRIGLYCERIDES 138.0 mg/dLCHOLESTEROL 253.0 mg/dLHDL 55.0 mg/ dLLDL (CALC) 170.0 mg/dLGLUCOSE 100.0 mg/dLSODIUM 141.0 mmol/LPOTASSIUM 5.10 mmol/LCHLORIDE 102.0 mmol/LCO2 30.0 mmol/LBUN 18.0 mg/dLCREATININE 0.80 mg/ dLSGOT/AST 17.0 IU/LSGPT/ALT 18.0 IU/LALK PHOS 83.0 IU/LTOTAL PROTEIN 6.90 g/ dLALBUMIN 4.30 g/dLTOTAL BILI 0.30 mg/dLCALCIUM 9.50 mg/dLeGFR >60 mL/min/1.73m History Of Immunizations Name Date Admin Mfg Name Mfg Code Trade Name Lot# Route Inj Vis Given Vis Pub CVX Influenza 03/02/2014 Not Entered NE Not Entered Not Entered Not Entered 03/02/2014 05/06/2014 141 History of Past Illness Name Date of Onset Comments Cellulitis Jun 20 2009 10:11AM Actinic Keratosis Jul 22 2009 9:55AM Gastroesophageal Reflux Esophageal Reflux Hyperlipidemia Anxiety Disorder Diverticulitis Diverticulosis Of Colon 09/07/2012 Low Back Pain 03/09/2013 Osteoarthrosis, generalized, multiple sites 03/09/2013 Low Back Pain Dec 30 2009 9:15AM Sprain/Strain Dec 30 2009 9:15AM Tobacco Abuse 08/31/2013 Chronic Obstructive Pulmonary Disease 08/31/2013 Low Back Pain Jan 17 2010 9:32AM Essential Hypertension 03/06/2014 Chronic back pain 01/29/2015 Cervicalgia 01/29/2015 Cough Jul 17 2010 11:15AM Bronchitis, Acute Jul 17 2010 11:15AM Irritable Bowel Syndrome Nov 29 2010 10:16AM [...] Shoulder pain, left Jan 28 2015 10:51AM Payers Insurance Name Company Name Plan Name Plan Number Policy Number Policy Group Number Start Date Medicare Part A Medicare Part A [id number] N/A [place] [employer] Prog - RHC [facility] 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
--- OUTSIDE RECORDS SUMMARY | 2018-01-13 11:16 | XMS REPORT ---
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 Phone ELOY AHUMADA PCP ELOY [...] oral route every 6 hours as needed amlodipine 5 mg oral tablet 11/05/2016 take 1 tablet (5 mg) by oral route once daily for 30 days Sinemet 10-100 mg oral tablet 11/05/2016 take 1 tablet by oral route 3 times per day for 30 days furosemide 20 mg oral tablet 11/28/2016 As directed furosemide 20 mg oral tablet 11/28/2016 As directed Bentyl 10 mg oral capsule 12/04/2016 take 1 capsule (10 mg) by oral route 4 times per day nystatin 100,000 unit/mL oral suspension 02/14/2017 take 4 milliliters ( 400,000 unit) by oral route 4 times per day Xanax 0.5 mg oral tablet 02/28/2017 take 1 tablet (0.5 mg) by oral route 3 times per day Zithromax Z-Jerome 250 mg oral tablet 04/04/2017 take 2 tablets (500 mg) by oral route once daily for 1 day then 1 tablet (250 mg) by oral route once daily for 4 days Name Start Date Expiration Date SIG [...] oral route once daily for 4 days Levaquin 750 mg oral tablet 02/26/2017 03/08/2017 take 1 tablet (750 mg) by oral route once daily for 10 days Discontinued Name Start Date [...] disease Active 03/26/2017 Fear of Active 04/03/2017 Vital Signs Date Time BP-Sys(mm[Hg] BP-Zaynab(mm[Hg]) HR(bpm) RR(rpm) Temp WT HT HC BMI BSA BMI Percentile O2 Sat(%) 04/15/2017 1:22:00 PM 128 mmHg 74 mmHg 98 bpm 16 rpm 98 F 215 lbs 62 in 39.32 kg/m2 2.07 m2 96 % 04/01/2017 11:01:00 AM 142 mmHg 78 mmHg 94 bpm 16 rpm 97.8 F 212 lbs 98 % 03/25/2017 10:14:00 AM 134 mmHg 80 mmHg 90 bpm 16 rpm 98 F 211 lbs 64 in 36.22 kg/m2 2.08 m2 96 % 03/12/2017 9:57:00 AM 128 mmHg 80 mmHg 86 bpm 20 rpm 98 F 210 lbs 64 in 36.046 kg/m 2.074 m 94 % 02/26/2017 1:49:00 PM 126 mmHg 78 mmHg 82 bpm 16 rpm 98.2 F 209 lbs 64 in 35.87 kg/m2 2.07 m2 94 % 02/15/2017 6:45:00 AM 122 mmHg 80 mmHg 90 bpm 16 rpm 98.2 F 204 lbs 64 in 35.0162 kg/m 2.0441 m 96 % 01/28/2017 1:01:00 PM 132 mmHg [...] rpm 97.3 F 196 lbs 64 in 33.64 kg/m2 2.00 m2 96 % 12/25/2016 3:42:00 PM 128 mmHg 82 mmHg 92 bpm 16 rpm 98.2 F 196 lbs 98 % 12/17/2016 9:18:00 AM 110 mmHg 68 mmHg 88 bpm 18 rpm 98 F 201 lbs 64 in 34.50 kg/m2 2.03 m2 95 % 12/05/2016 2:21:00 PM 118 mmHg 74 mmHg 88 bpm 16 rpm 98.2 F 204 lbs 64 in 35.0162 kg/m 2.0441 m 96 % 12/03/2016 9:31:00 AM 110 mmHg 68 mmHg 95 bpm 16 rpm 97.1 F 208 lbs 64 in 35.70 kg/m2 2.06 m2 95 % 11/30/2016 9:54:00 AM 122 mmHg [...] rpm 98.2 F 201 lbs 62 in 36.76 kg/m2 2.00 m2 91 % 09/07/2016 11:31:00 AM 122 mmHg 74 mmHg 82 bpm 20 rpm 98 F 203 lbs 95 % 09/03/2016 11:26:00 AM 132 mmHg 78 mmHg 88 bpm 18 rpm 97.1 F 203 lbs 64 in 34.84 kg/m2 2.04 m2 94 % 08/20/2016 1:15:00 PM 118 mmHg 80 mmHg 68 bpm 18 rpm 97.5 F 210 lbs 64 in 36.046 kg/m 2.074 m 94 % 08/15/2016 1:03:00 PM 102 mmHg 60 mmHg 82 bpm 18 rpm 98.2 F 209 lbs 64 in 35.87 kg/m2 2.07 m2 95 % 08/09/2016 12:06:00 PM 116 mmHg 70 mmHg 82 bpm 18 rpm 97.5 F 208 lbs 64 in 35.7028 kg/m 2.0641 m 97 % 08/01/2016 12:23:00 PM 128 mmHg 74 mmHg 82 bpm 97 rpm 97.6 F 208 lbs 64 in 35.70 kg/m2 2.06 m2 94 % 07/27/2016 12:12:00 PM 125 mmHg 62 mmHg 88 bpm 20 rpm 97.2 F 207 lbs 64 in 35.5311 kg/m 2.0591 m 94 % 07/18/2016 2:43:00 PM 118 mmHg 64 mmHg 84 bpm 18 rpm 98.2 F 207 lbs 64 in 35.53 kg/m2 2.06 m2 95 % 07/06/2016 11:23:00 AM 95 mmHg 70 mmHg 82 bpm 18 rpm 98.4 F 209 lbs 64 in 35.8744 kg/m 2.069 m 95 % 06/29/2016 11:21:00 AM 130 mmHg 80 mmHg 76 bpm 16 rpm 98.2 F 209.312 lbs 64 in 35.93 kg/m2 2.07 m2 96 % 06/26/2016 4:39:00 PM 100 mmHg 62 mmHg 86 bpm 18 rpm 98 F 214 lbs 94 % 06/04/2016 6:45:00 AM 110 mmHg 74 mmHg 72 bpm 20 rpm 98.2 F 211 lbs 65 in 35.11 kg/m2 2.10 m2 98 % 05/31/2016 11:12:00 AM 126 mmHg 78 mmHg 96 bpm 18 rpm 96.9 F 211 lbs 65 in 35.1119 kg/m 2.0951 m 96 % 05/14/2016 11:06:00 AM 106 mmHg 60 mmHg 100 bpm 18 rpm 96.8 F 207 lbs 65 in 34.45 kg/m2 2.08 m2 96 % 04/17/2016 12:43:00 PM 170 mmHg 85 mmHg 98 bpm 16 rpm 97.4 F 214 lbs 89 % 04/02/2016 10:39:00 AM 130 mmHg 80 mmHg 104 bpm 18 rpm 97.8 F 210 lbs 65 in 34.95 kg/m2 2.09 m2 90 % 12/15/2015 10:08:00 AM 128 mmHg 70 mmHg 84 bpm 16 rpm 98 F 199 lbs 64 in 34.1579 kg/m 2.0189 m 92 % 10/24/2015 11:24:00 AM [...] Reviewed 01/24/2015 12:00 AM Toradol 60 Mg [facility]#3487-7887-12 Reviewed 03/25/2015 12:00 AM Toradol 60 Mg [facility]#5852-2449-61 Reviewed 04/06/2015 12:00 AM MRI NECK SPINE W/O DYE Reviewed 05/27/2015 12:00 AM Decadron, Per 1 Mg [facility]# [address]-08 Reviewed 05/27/2015 12:00 AM Depo-Medrol, Per 80 Mg [facility]#0209-3151-36 Reviewed 05/27/2015 12:00 AM Rocephin 1 gram [facility]#9675-0843-74 Reviewed 02/26/2011 12:00 AM THER/PROPH/DIAG INJ SC/IM Reviewed 02/26/2011 12:00 AM Decadron Inj.1mg-([facility]) [facility] #[id number] Reviewed 02/26/2011 12:00 AM Depo-Medrol 80 Mg Im/[facility] 0009-257117 Reviewed 12/15/2015 12:00 AM Rocephin 1 gram [facility]#0198-5918-88 Reviewed 06/03/2016 12:00 AM THERAPEUTIC PROPHYLACTIC/DX INJECTION [...] 12:00 AM Lasix, Up to 20 Mg [facility]#0835-2351-20 [facility] Medicare Reviewed 11/16/2016 12:00 AM ASSAY [...] 03/11/2012 12:00 AM Decadron, Per 1 Mg [facility]# [address]-60 Reviewed 03/11/2012 12:00 AM Depo-Medrol, Per 80 Mg [facility]#1923-8974-20 Reviewed 03/11/2012 12:00 AM Rocephin 1 gram [facility]#3369-3953-66 Reviewed 04/11/2012 12:00 AM Flu Injection 3 Years And Above [facility]# [address]-55 [facility] Reviewed 10/27/2012 12:00 AM THER/PROPH/DIAG INJ SC/IM Reviewed 10/27/2012 12:00 AM Decadron, Per 1 Mg [facility]# [address]-18 Reviewed 10/27/2012 12:00 AM Depo-Medrol, Per 80 Mg [facility]#9431-6346-32 Reviewed 12/26/2012 12:00 AM COMPLETE CBC W/AUTO DIFF WBC Reviewed 12/26/2012 12:00 AM COMPREHEN METABOLIC PANEL Reviewed 12/26/2012 12:00 AM LIPID PANEL Reviewed 12/26/2012 12:00 AM ASSAY THYROID STIM HORMONE Reviewed 08/27/2013 12:00 AM THER/PROPH/DIAG INJ SC/IM Reviewed 08/27/2013 12:00 AM Toradol 60 Mg [facility]#7418-9650-39 Reviewed 12/01/2013 12:00 AM THER/PROPH/DIAG INJ SC/IM Reviewed 12/01/2013 12:00 AM Toradol 60 Mg [facility]#8492-9975-10 Reviewed 07/17/2010 12:00 AM THER/PROPH/DIAG INJ SC/IM Reviewed 07/17/2010 12:00 AM Decadron Inj.6mg-([facility]) [facility] #[id number] Reviewed 07/17/2010 12:00 AM Depo-Medrol 120 Mg Im/[facility] [phone] Reviewed 04/21/2014 12:00 AM IMMUNIZATION ADMIN Reviewed 04/21/2014 12:00 AM THER/PROPH/DIAG INJ SC/IM Reviewed 04/21/2014 12:00 AM Decadron, Per 1 Mg [facility]# [address]-57 Reviewed 04/21/2014 12:00 AM Depo-Medrol, Per 80 Mg [facility]#1337-1081-13 Reviewed 05/14/2014 12:00 AM THER/PROPH/DIAG INJ SC/IM Reviewed 05/14/2014 12:00 AM Decadron, Per 1 Mg [facility]# [address]-26 Reviewed 05/14/2014 12:00 AM Depo-Medrol, Per 80 Mg [facility]#4037-9408-47 Reviewed 07/05/2014 12:00 AM THER/PROPH/DIAG INJ SC/IM Reviewed 07/05/2014 12:00 AM Decadron, Per 1 Mg [facility]# [address]-95 Reviewed 07/05/2014 12:00 AM Rocephin 1 gram [facility]#2759-0100-08 Reviewed Results Summary Date and Description Results [...] chronic kidney disease 03/26/2017 Fear of 04/03/2017 Seasonal Allergies Feb 28 2011 2:02PM Costochondritis [...] 05 2015 1:18PM Chronic back pain Jul 04 2016 1:18PM Chronic Obstructive Pulmonary Disease Jul 05 [...] chronic kidney disease Apr 15 2017 1:22PM Payers Insurance Name Company Name Plan Name Plan Number Policy Number Policy Group Number Start Date Medicare RHC Medicare RHC [id number] N/A [place] [employer] Prog - RHC [place] [employer]g - RHC [id number] N/A Medicare Part A Medicare - Lab/Xray [id number] N/A Medicare Part B Medicare Of [place] [id number] N/A [place] [facility] [place] [employer] Prog [id number] N/A Medicare Part A Medicare Part A [id number] N/A History of Encounters Visit Date Visit Type Provider 04/15/2017 Office visit ELOY BRITT 04/01/2017 Office visit ELOY BRITT 03/25/2017 Office visit ELOY BRITT 03/12/2017 Office visit ELOY BRITT 02/26/2017 Office visit ELOY BRITT 02/14/2017 Voided ELOY BRITT 02/14/2017 Office visit ELOY BRITT 02/01/2017 Office [...] 04/02/2016 Office visit ELOY AHUMADA PA 03/22/2016 [facility] Jhony Phelps [facility] 03/22/2016 [facility] [...] Eloy Ahumada PA-C 07/17/2010 Office visit Eloy BRITT-C 01/17/2010 Office visit Eloy BRITT-C 12/30/2009 Office visit Eloy BRITT-C 07/22/2009 Office visit Eloy BRTIT-C 06/20/2009 Office visit Eloy BRITT-C 02/18/2009 Office visit Eloy Ahumada PA-C
--- OUTSIDE RECORDS SUMMARY | 2018-01-13 11:17 | XMS REPORT ---
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 Phone ELOY AHUMADA PCP Unavailable Allergies and Adverse Reactions Name Reaction Notes Depo-Medrol Pain, muscle spasms, insomnia Decadron Pain, Muscle spasms, insomnia Plan of Treatment Planned Activity Comments Planned Date Planned Time Plan/Goal cervical pain 06/15/2015 11:00 AM Medications Active Name Start Date Estimated Completion Date SIG Comments pantoprazole 40 mg oral tablet,delayed release (/EC) 03/05/2014 take 1 tablet (40 mg) by oral route once daily diazepam 5 mg oral tablet 02/18/2014 1/2 to 1 PO BID PRN anxiety fluticasone 50 mcg/actuation nasal spray,suspension 05/11/2014 1 SPRAY IN EACH NOSTRIL TWICE DAILY fluticasone 50 mcg/actuation nasal spray,suspension 05/11/2014 1 [...] pantoprazole 40 mg oral tablet,delayed release (DR/EC) 03/18/2015 TAKE 1 TABLET BY MOUTH ONCE DAILY lisinopril-hydrochlorothiazide 10-12.5 mg oral tablet 09/15/2015 02/12/2016 take 1 tablet by oral route once daily for 30 days Percocet 5-325 mg oral tablet 10/11/2015 take 1 tablet by oral route every 6 hours as needed Breo Ellipta 100-25 mcg/dose inhalation blister with device 10/17/2015 inhale 1 puff by inhalation route once daily at the same time each day phentermine 37.5 mg oral tablet 10/11/2015 1/2 po in the am Name Start Date Expiration Date SIG Comments [...] 2 times per day for 30 days Discontinued Name Start Date Discontinued Date [...] by topical route 4 times per day Nicoderm CQ 21 mg/24 hr transdermal patch 24 hour 08/10/2014 03/27/2015 apply 1 patch (21 mg) by transdermal route once daily for 4 weeks Problem List Description Status Onset Gastroesophageal Reflux Active Anxiety disorder Active Esophageal Reflux Active Hyperlipidemia Active Diverticulitis Active Diverticulosis Of Colon Active 09/07/2012 Low back pain Active 03/09/2013 Osteoarthrosis, generalized, multiple sites Active 03/09/2013 Tobacco Abuse Active 08/31/2013 Chronic Obstructive Pulmonary Disease Active 08/31/2013 Essential Hypertension Active 03/06/2014 Chronic back pain Active 01/29/2015 Cervicalgia Active 01/29/2015 Essential Hypertension Active 07/12/2015 Anxiety about health Active 07/12/2015 Vital Signs Date Time BP-Sys(mm[Hg] BP-Zaynab(mm[Hg]) HR(bpm) RR(rpm) Temp WT HT HC BMI BSA BMI Percentile O2 Sat(%) 10/11/2015 10:21:00 AM 118 mmHg 72 mmHg [...] Returned 01/24/2015 12:00 AM LIPID PANEL Returned 01/24/2015 12:00 AM Toradol 60 Mg [facility]#5530-1317-51 Reviewed 03/25/2015 12:00 AM Toradol 60 Mg [facility]#9263-2319-64 Reviewed 04/06/2015 12:00 AM MRI NECK SPINE W/O DYE Returned 05/27/2015 12:00 AM Decadron, Per 1 Mg [facility]# [address]-40 Reviewed 05/27/2015 12:00 AM Depo-Medrol, Per 80 Mg [facility]#0249-6559-33 Reviewed 05/27/2015 12:00 AM Rocephin 1 gram [facility]#1744-0420-61 Reviewed 02/26/2011 12:00 AM THER/PROPH/DIAG INJ SC/IM Reviewed 02/26/2011 12:00 AM Decadron Inj.1mg-([facility]) [facility] #[id number] Reviewed 02/26/2011 12:00 AM Depo-Medrol 80 Mg Im/[facility] [phone] Reviewed 03/11/2012 12:00 AM THER/PROPH/DIAG INJ SC/IM Reviewed 03/11/2012 12:00 AM Decadron, Per 1 Mg [facility]# [address]-78 Reviewed 03/11/2012 12:00 AM Depo-Medrol, Per 80 Mg [facility]#2839-3449-33 Reviewed 03/11/2012 12:00 AM Rocephin 1 gram [facility]#1266-2343-59 Reviewed 04/11/2012 12:00 AM Flu Injection 3 Years And Above [facility]# [address]-37 C Reviewed 10/27/2012 12:00 AM THER/PROPH/DIAG INJ SC/IM Reviewed 10/27/2012 12:00 AM Decadron, Per 1 Mg [facility]# [address]-90 Reviewed 10/27/2012 12:00 AM Depo-Medrol, Per 80 Mg [facility]#8411-3007-21 Reviewed 12/26/2012 12:00 AM COMPLETE CBC W/AUTO DIFF WBC Reviewed 12/26/2012 12:00 AM COMPREHEN METABOLIC PANEL Reviewed 12/26/2012 12:00 AM LIPID PANEL Reviewed 12/26/2012 12:00 AM ASSAY THYROID STIM HORMONE Reviewed 08/27/2013 12:00 AM THER/PROPH/DIAG INJ SC/IM Reviewed 08/27/2013 12:00 AM Toradol 60 Mg [facility]#8029-7700-72 Reviewed 12/01/2013 12:00 AM THER/PROPH/DIAG INJ SC/IM Reviewed 12/01/2013 12:00 AM Toradol 60 Mg [facility]#1546-8585-91 Reviewed 07/17/2010 12:00 AM THER/PROPH/DIAG INJ SC/IM Reviewed 07/17/2010 12:00 AM Decadron Inj.6mg-([facility]) [facility] #[id number] Reviewed 07/17/2010 12:00 AM Depo-Medrol 120 Mg Im/[facility] [id number] Reviewed 04/21/2014 12:00 AM IMMUNIZATION ADMIN Reviewed 04/21/2014 12:00 AM THER/PROPH/DIAG INJ SC/IM Reviewed 04/21/2014 12:00 AM Decadron, Per 1 Mg [facility]# [address]-34 Reviewed 04/21/2014 12:00 AM Depo-Medrol, Per 80 Mg [facility]#0381-1480-75 Reviewed 05/14/2014 12:00 AM THER/PROPH/DIAG INJ SC/IM Reviewed 05/14/2014 12:00 AM Decadron, Per 1 Mg [facility]# [address]-88 Reviewed 05/14/2014 12:00 AM Depo-Medrol, Per 80 Mg [facility]#2652-6312-21 Reviewed 07/05/2014 12:00 AM THER/PROPH/DIAG INJ SC/IM Reviewed 07/05/2014 12:00 AM Decadron, Per 1 Mg [facility]# [address]-34 Reviewed 07/05/2014 12:00 AM Rocephin 1 gram [facility]#6252-7862-89 Reviewed Results Summary Data and Description Results [...] Not Entered Not Entered Not Entered 03/02/2014 05/06/2015 141 History of Past Illness Name Date of Onset Comments Cellulitis Jun 20 2009 10:11AM Actinic Keratosis Jul 22 2009 9:55AM Gastroesophageal Reflux Esophageal Reflux Hyperlipidemia Anxiety disorder Diverticulitis Diverticulosis Of Colon 09/07/2012 Low back pain 03/09/2013 Osteoarthrosis, generalized, multiple sites 03/09/2013 Low Back Pain Dec 30 2009 9:15AM Sprain/Strain Dec 30 2009 9:15AM Tobacco Abuse 08/31/2013 Chronic Obstructive Pulmonary Disease 08/31/2013 Low Back Pain Jan 17 2010 9:32AM Essential Hypertension 07/12/2015 Chronic back pain 01/29/2015 Cervicalgia 01/29/2015 [...] breath on exertion Oct 11 2015 10:22AM Payers Insurance Name Company Name Plan Name Plan Number Policy Number Policy Group Number Start Date Medicare Part A Medicare RHC [id number] N/A [facility] [id number] N/A Medicare Part A Medicare - Lab/Xray [id number] N/A Medicare Part A Medicare Part A [id number] N/A History of Encounters Visit Date Visit Type Provider 10/11/2015 Office visit ELOY AHUMADA PA 07/05/2015 [...] Eloy Ahumada PA-C 12/30/2009 Office visit Eloy BRITT-C 07/22/2009 Office visit Eloy BRITT-C 06/20/2009 Office visit Eloy Ahumada PA-C 02/18/2009 Office visit Eloy COXC
--- OUTSIDE RECORDS SUMMARY | 2018-01-13 11:18 | XMS REPORT ---
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 Phone ELOY AHUMADA PCP Unavailable [...] needed, up to 6 doses per day lisinopril-hydrochlorothiazide 10-12.5 mg oral tablet 09/15/2015 02/12/2016 take 1 tablet by oral route once daily for 30 days Breo Ellipta 100-25 mcg/dose inhalation blister with device 10/17/2015 inhale 1 puff by inhalation route once daily at the same time each day phentermine 37.5 mg oral tablet 10/11/2015 1/2 po in the am pantoprazole 40 mg oral tablet,delayed release (DR/EC) 10/24/2015 TAKE 1 TABLET BY MOUTH ONCE DAILY Percocet 5-325 mg oral tablet 12/15/2015 take 1 tablet by oral route every 6 hours as needed Bentyl 10 mg oral capsule 12/16/2015 take 1 capsule (10 mg) by oral route 3 times per day Levaquin 500 mg oral tablet 12/15/2015 12/25/2015 take 1 tablet (500 mg) by oral route once daily for 10 days promethazine-codeine 6.25-10 mg/5 mL oral syrup 12/18/2015 take 5 milliliters by oral route every 4-6 hours as needed, not to exceed 30 mL in 24 hours Name Start Date Expiration Date SIG Comments [...] days atenolol 25 mg oral tablet 08/27/2013 11/25/201305/07 BID dicyclomine 10 mg oral capsule 11/12/2013 [...] HC BMI BSA BMI Percentile O2 Sat(%) 12/15/2015 10:08:00 AM 128 mmHg 70 mmHg [...] Returned 01/24/2015 12:00 AM Toradol 60 Mg [facility]#6195-0853-62 Reviewed 03/25/2015 12:00 AM Toradol 60 Mg [facility]#9394-6906-51 Reviewed 04/06/2015 12:00 AM MRI NECK SPINE W/O DYE Returned 05/27/2015 12:00 AM Decadron, Per 1 Mg [facility]# [address]-78 Reviewed 05/27/2015 12:00 AM Depo-Medrol, Per 80 Mg [facility]#2302-0796-69 Reviewed 05/27/2015 12:00 AM Rocephin 1 gram [facility]#2908-7528-67 Reviewed 02/26/2011 12:00 AM THER/PROPH/DIAG INJ SC/IM Reviewed 02/26/2011 12:00 AM Decadron Inj.1mg-([facility]) [facility] #[id number] Reviewed 02/26/2011 12:00 AM Depo-Medrol 80 Mg Im/[facility] [id number] Reviewed 03/11/2012 12:00 AM THER/PROPH/DIAG INJ SC/IM Reviewed 03/11/2012 12:00 AM Decadron, Per 1 Mg [facility]# [address]-83 Reviewed 03/11/2012 12:00 AM Depo-Medrol, Per 80 Mg [facility]#1613-4932-18 Reviewed 03/11/2012 12:00 AM Rocephin 1 gram [facility]#8634-5476-13 Reviewed 04/11/2012 12:00 AM Flu Injection 3 Years And Above [facility]# [address]-03 [facility] Reviewed 10/27/2012 12:00 AM THER/PROPH/DIAG INJ SC/IM Reviewed 10/27/2012 12:00 AM Decadron, Per 1 Mg [facility]# [address]-27 Reviewed 10/27/2012 12:00 AM Depo-Medrol, Per 80 Mg [facility]#7882-2744-53 Reviewed 12/26/2012 12:00 AM COMPLETE CBC W/AUTO DIFF WBC Reviewed 12/26/2012 12:00 AM COMPREHEN METABOLIC PANEL Reviewed 12/26/2012 12:00 AM LIPID PANEL Reviewed 12/26/2012 12:00 AM ASSAY THYROID STIM HORMONE Reviewed 08/27/2013 12:00 AM THER/PROPH/DIAG INJ SC/IM Reviewed 08/27/2013 12:00 AM Toradol 60 Mg [facility]#5620-1819-89 Reviewed 12/01/2013 12:00 AM THER/PROPH/DIAG INJ SC/IM Reviewed 12/01/2013 12:00 AM Toradol 60 Mg [facility]#9722-6036-07 Reviewed 07/17/2010 12:00 AM THER/PROPH/DIAG INJ SC/IM Reviewed 07/17/2010 12:00 AM Decadron Inj.6mg-([facility]) [facility] #[id number] Reviewed 07/17/2010 12:00 AM Depo-Medrol 120 Mg Im/[facility] [id number] Reviewed 04/21/2014 12:00 AM IMMUNIZATION ADMIN Reviewed 04/21/2014 12:00 AM THER/PROPH/DIAG INJ SC/IM Reviewed 04/21/2014 12:00 AM Decadron, Per 1 Mg [facility]# [address]-61 Reviewed 04/21/2014 12:00 AM Depo-Medrol, Per 80 Mg [facility]#3035-7203-38 Reviewed 05/14/2014 12:00 AM THER/PROPH/DIAG INJ SC/IM Reviewed 05/14/2014 12:00 AM Decadron, Per 1 Mg [facility]# [address]-88 Reviewed 05/14/2014 12:00 AM Depo-Medrol, Per 80 Mg [facility]#2243-7660-43 Reviewed 07/05/2014 12:00 AM THER/PROPH/DIAG INJ SC/IM Reviewed 07/05/2014 12:00 AM Decadron, Per 1 Mg [facility]# [address]-57 Reviewed 07/05/2014 12:00 AM Rocephin 1 gram [facility]#5878-2054-19 Reviewed Results Summary Data and Description Results [...] 2015 10:09AM Bloating Dec 15 2015 10:09AM Payers Insurance Name Company Name Plan Name Plan Number Policy Number Policy Group Number Start Date Medicare Part A Medicare RHC [id number] N/A [facility] 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 [facility] 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 [id number] N/A Medicare Part A Medicare - Lab/Xray [id number] N/A Medicare Part A Medicare Part A [id number] N/A History of Encounters Visit Date Visit Type Provider 12/15/2015 Office visit ELOY BRITT 10/24/2015 Office visit ELOY BRITT 10/11/2015 Office visit ELOY BRITT 07/05/2015 Office visit ELOY BRITT 06/09/2015 Office visit ELOY BRITT 05/12/2015 Office visit ELOY BRITT 03/25/2015 Office visit ELOY BRITT 01/28/2015 Office visit ELOY BRITT 01/24/2015 Office visit ELOY BRITT 01/03/2015 Office visit ELOY BRITT 11/17/2014 Office visit ELOY BRITT 08/13/2014 Office visit ELOY BRITT 07/08/2014 Voided ELOY BRITT 07/05/2014 Office visit 07/05/2014 Office visit ELOY BRITT 05/14/2014 Office visit 05/14/2014 Office visit ELOY BRITT 05/11/2014 Office visit ELOY BRITT 04/21/2014 Office visit 04/21/2014 Office visit ELOY BRITT 02/18/2014 Office visit ELOY AHUMADA PA 12/01/2013 [...]
--- OUTSIDE RECORDS SUMMARY | 2018-01-13 11:20 | XMS REPORT ---
Author ELOY Fleming 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 Name Role Phone ELOY AHUMADA PCP Unavailable ELOY AHUMADA PreferredProvider Unavailable Allergies and Adverse Reactions Name Reaction Notes Depo-Medrol Pain, muscle spasms, insomnia Decadron Pain, Muscle spasms, insomnia Plan of Treatment Planned Activity Comments Planned Date Planned Time Plan/Goal BNP 05/15/2016 12:00 AM CMP 10/18/2016 12:00 AM BNP 11/16/2016 12:00 AM Aerosol Tx 11/30/2016 12:00 AM [...] HC BMI BSA BMI Percentile O2 Sat(%) 12/03/2016 9:31:00 AM 110 mmHg 68 mmHg [...] Reviewed 01/24/2015 12:00 AM Toradol 60 Mg [facility]#9999-2254-03 Reviewed 03/25/2015 12:00 AM Toradol 60 Mg [facility]#0455-0129-02 Reviewed 04/06/2015 12:00 AM MRI NECK SPINE W/O DYE Reviewed 05/27/2015 12:00 AM Decadron, Per 1 Mg [facility]# [address]-38 Reviewed 05/27/2015 12:00 AM Depo-Medrol, Per 80 Mg [facility]#9476-8512-69 Reviewed 05/27/2015 12:00 AM Rocephin 1 gram [facility]#6467-3049-81 Reviewed 02/26/2011 12:00 AM THER/PROPH/DIAG INJ SC/IM Reviewed 02/26/2011 12:00 AM Decadron Inj.1mg-([facility]) [facility] #[id number] Reviewed 02/26/2011 12:00 AM Depo-Medrol 80 Mg Im/[facility] [id number] Reviewed 12/15/2015 12:00 AM Rocephin 1 gram [facility]#5193-6851-87 Reviewed 06/03/2016 12:00 AM THERAPEUTIC PROPHYLACTIC/DX INJECTION SUBQ/IM Reviewed 06/03/2016 12:00 AM Decadron 8mg Injection, [facility] Medicare Reviewed 06/27/2016 12:00 AM COMPREHEN METABOLIC PANEL Returned 06/27/2016 12:00 AM URINALYSIS AUTO W/SCOPE Returned 07/05/2016 12:00 AM COMPREHEN METABOLIC PANEL Reviewed 07/12/2016 12:00 AM COMPREHEN METABOLIC PANEL Reviewed 07/23/2016 12:00 AM COMPREHEN METABOLIC PANEL Reviewed 09/07/2016 12:00 AM THERAPEUTIC PROPHYLACTIC/DX INJECTION SUBQ/IM Reviewed 09/07/2016 12:00 AM Rocephin 1 gram Injection, [facility] Medicare Reviewed 09/03/2016 12:00 AM THERAPEUTIC PROPHYLACTIC/DX INJECTION SUBQ/IM Reviewed 09/03/2016 12:00 AM Rocephin 1 gram Injection, [facility] Medicare Reviewed 10/22/2016 12:00 AM THERAPEUTIC PROPHYLACTIC/DX INJECTION SUBQ/IM Reviewed 10/18/2016 12:00 AM Lasix, Up to 20 Mg [facility]#1350-9828-05 [facility] Medicare Reviewed 12/03/2016 12:00 AM THERAPEUTIC PROPHYLACTIC/DX INJECTION SUBQ/IM Reviewed 12/03/2016 12:00 AM Decadron 8mg Injection, [facility] Medicare Reviewed 11/30/2016 12:00 AM THERAPEUTIC PROPHYLACTIC/DX INJECTION SUBQ/IM Reviewed 11/30/2016 12:00 AM Decadron 8mg Injection, [facility] Medicare Reviewed 11/30/2016 12:00 AM Rocephin 1 gram Injection, [facility] Medicare Reviewed 03/11/2012 12:00 AM THER/PROPH/DIAG INJ SC/IM Reviewed 03/11/2012 12:00 AM Decadron, Per 1 Mg [facility]# [address]-32 Reviewed 03/11/2012 12:00 AM Depo-Medrol, Per 80 Mg [facility]#2341-9566-06 Reviewed 03/11/2012 12:00 AM Rocephin 1 gram [facility]#8212-8830-86 Reviewed 04/11/2012 12:00 AM Flu Injection 3 Years And Above [facility]# [address]-61 [facility] Reviewed 10/27/2012 12:00 AM THER/PROPH/DIAG INJ SC/IM Reviewed 10/27/2012 12:00 AM Decadron, Per 1 Mg [facility]# [address]-54 Reviewed 10/27/2012 12:00 AM Depo-Medrol, Per 80 Mg [facility]#5700-0655-47 Reviewed 12/26/2012 12:00 AM COMPLETE CBC W/AUTO DIFF WBC Reviewed 12/26/2012 12:00 AM COMPREHEN METABOLIC PANEL Reviewed 12/26/2012 12:00 AM LIPID PANEL Reviewed 12/26/2012 12:00 AM ASSAY THYROID STIM HORMONE Reviewed 08/27/2013 12:00 AM THER/PROPH/DIAG INJ SC/IM Reviewed 08/27/2013 12:00 AM Toradol 60 Mg [facility]#7007-8298-99 Reviewed 12/01/2013 12:00 AM THER/PROPH/DIAG INJ SC/IM Reviewed 12/01/2013 12:00 AM Toradol 60 Mg [facility]#9440-9855-00 Reviewed 07/17/2010 12:00 AM THER/PROPH/DIAG INJ SC/IM Reviewed 07/17/2010 12:00 AM Decadron Inj.6mg-([facility]) [facility] #[id number] Reviewed 07/17/2010 12:00 AM Depo-Medrol 120 Mg Im/[facility] [id number] Reviewed 04/21/2014 12:00 AM IMMUNIZATION ADMIN Reviewed 04/21/2014 12:00 AM THER/PROPH/DIAG INJ SC/IM Reviewed 04/21/2014 12:00 AM Decadron, Per 1 Mg [facility]# [address]-03 Reviewed 04/21/2014 12:00 AM Depo-Medrol, Per 80 Mg [facility]#6008-4965-56 Reviewed 05/14/2014 12:00 AM THER/PROPH/DIAG INJ SC/IM Reviewed 05/14/2014 12:00 AM Decadron, Per 1 Mg [facility]# [address]-20 Reviewed 05/14/2014 12:00 AM Depo-Medrol, Per 80 Mg [facility]#2326-9606-06 Reviewed 07/05/2014 12:00 AM THER/PROPH/DIAG INJ SC/IM Reviewed 07/05/2014 12:00 AM Decadron, Per 1 Mg [facility]# [address]-00 Reviewed 07/05/2014 12:00 AM Rocephin 1 gram [facility]#7275-6930-95 Reviewed Results Summary Date and Description Results [...] 9:36AM COPD exacerbation Dec 03 2016 9:36AM Payers Insurance Name Company Name Plan Name Plan Number Policy Number Policy Group Number Start Date Medicare RHC Medicare RHC [id number] N/A [employer] - RHC [employer] - RHC [id number] N/A Medicare Part A Medicare - Lab/Xray [id number] N/A Medicare Part B Medicare Of [place] [id number] N/A [place] [facility] [place] [facility] [employer] [id number] N/A Medicare Part A Medicare Part A [id number] N/A History of Encounters Visit Date Visit Type Provider 12/03/2016 Office visit ELOY BRITT 11/30/2016 Office visit ELOY BRITT 11/29/2016 Office visit ELOY BRITT 11/16/2016 Office visit ELOY BRITT 11/01/2016 Office visit ELOY BRITT 10/25/2016 Office visit ELOY BRITT 10/18/2016 Office visit ELOY BRITT 10/04/2016 Office visit ELOY BRITT 09/17/2016 Office [...] visit ELOY BRITT 06/26/2016 Office visit ELOY AHUMADA PA 06/03/2016 Office visit ELOY AHUMADA PA 05/31/2016 Office visit ELOY AHUMADA PA 05/14/2016 Office visit ELOY AHUMADA PA 04/17/2016 Office visit ELOY AHUMADA PA 04/02/2016 Office visit ELOY AHUMADA PA 03/22/2016 Hospital Jhony Phelps MD 03/22/2016 [facility] Mukul Lopez MD 12/15/2015 Office [...] ELOY AHUMADA PA 08/13/2014 Office visit ELOY BRITT 07/08/2014 Voided ELOY AHUMADA PA 07/05/2014 Office [...]
--- NOTE | 2018-01-13 11:22 | ED Abdominal Pain ---
General Chief Complaint: Abdominal/GI Problems Stated Complaint: LEFT SIDE ABD PAIN Nursing Triage Note: Pt arrives to ED Room #3 c/o LUQ ABD pain. Pt states that the pain is throbbing and sharp. LUQ painful/tender to palpation. Pt states HX: diverticulitis. Pt is on 3LNC per home O2. Sepsis Screen: No Definite Risk Source of Information: Patient Exam Limitations: No Limitations History of Present Illness Date Seen by Provider: Jan 13, 2018 Time Seen by Provider: 11:20 Initial Comments Patient is a 72-year-old female who presents to the emergency room with complaints of left lower quadrant abdominal pain. She reports that her physicians senior it assistant Mateusz Marie has been treating her for diverticulitis on outpatient antibiotics. She reports that he is out of town and has not been able to see him again and she started developing increasing left lower quadrant pain for the past week. Denies nausea, vomiting, diarrhea. Timing/Duration: 1 Week Severity/Quality: Burning Location: LLQ Radiation: No Radiation Activities at Onset: None Associated Symptoms: Denies Symptoms Allergies and Home Medications Allergies Coded Allergies: pseudoephedrine (Unverified Allergy, Unknown, 04/21/16) meperidine HCl (Unverified Adverse Reaction, Unknown, VOMITING, 04/21/16) Home Medications Albuterol Sulfate 8.5 Gm Hfa.aer.ad, 1-2 PUFF IH Q6H PRN for SHORTNESS OF BREATH , (Reported) Alprazolam 0.5 Mg Tablet, 0.25-0.5 MG PO TID PRN for ANXIETY Prescribed by: NGUYEN OLSON on 04/30/16 1100 Amlodipine Besylate 5 Mg Tablet, 5 MG PO BID Prescribed by: NGUYEN OLSON on 04/30/16 1014 Dexlansoprazole 60 Mg bp, 60 MG PO DAILY, (Reported) Lisinopril/Hydrochlorothiazide 1 Each Tablet, 1 TAB PO DAILY, (Reported) Oxycodone HCl/Acetaminophen 1 Each Tablet, 1 TAB PO Q6H PRN for PAIN Prescribed by: NGUYEN OLSON on 04/30/16 1100 Prednisone 10 Mg Tab.pk, 30 MG PO DAILY Take 3 pills daily and every 3 days decrease by one pill a day Prescribed by: NGUYEN OLSON on 04/30/16 1014 Patient Home Medication List Home Medication List Reviewed: Yes Review of Systems Review of Systems Constitutional: see HPI; No chills; fever Gastrointestinal: See HPI, Abdominal Pain All Other Systems Reviewed Negative Unless Noted: Yes Past Vptrbsf-Nrgfff-Zrtmnt Hx Past Med/Social Hx: Reviewed Nursing Past Med/Soc Hx Patient Social History Alcohol Use: Denies Use Recreational Drug Use: No Smoking Status: Former Smoker Type Used: Cigarettes Former Smoker, Quit: Apr 21, 2014 Recent Foreign Travel: No Contact w/Someone Who Travel: No Recent Infectious Disease Expo: No Recent Hopitalizations: Yes Physical Abuse: No Sexual Abuse: No Mistreated: No Fear: No Immunizations Up To Date Tetanus Booster (TDap): More than 5yrs Date of Pneumonia Vaccine: Apr 11, 2016 Date of Influenza Vaccine: Apr 11, 2016 Seasonal Allergies Seasonal Allergies: Yes Past Medical History Surgeries: Yes (ovarian cyst) Appendectomy, Gallbladder Respiratory: Yes Pneumonia Cardiac: No Hypertension Neurological: Yes (SPINAL STENOSIS) Reproductive Disorders: No Sexually Transmitted Disease: No HIV/AIDS: No Gastrointestinal: Yes (LUQ tender to palpation, BSx4) Gastroesophageal Reflux Musculoskeletal: No Endocrine: No HEENT: Yes Cataract Cancer: No Psychosocial: No Blood Disorders: No Family Medical History Reviewed Nursing Family Hx Physical Exam Vital Signs Vital Signs - First Documented 01/13/18 10:55 Temp 98.4 Pulse 103 Resp 18 B/P (MAP) 187/99 (128) Pulse Ox 93 O2 Delivery Nasal Cannula O2 Flow Rate 3.00 Capillary Refill : Less Than 3 Seconds Height/Weight/BMI Height: 5'4.00" Weight: 223lbs. 4.0oz. 101.396772qb; 34.1 BMI Method:Stated General Appearance: WD/WN, no apparent distress Neck: non-tender, full range of motion, supple, normal inspection Respiratory: chest non-tender, lungs clear, normal breath sounds, no respiratory distress, no accessory muscle use Cardiovascular: normal peripheral pulses, regular rate, rhythm, no edema, no gallop, no JVD, no murmur Gastrointestinal: normal bowel sounds, soft, no organomegaly, no pulsatile mass , tenderness (left lower quadrant tenderness) Extremities: non-tender, no pedal edema Neurologic/Psychiatric: alert, normal mood/affect, oriented x 3 Skin: normal color, warm/dry Progress/Results/Core Measures Results/Orders Lab Results Laboratory Tests Test 01/13/18 10:55 01/13/18 11:30 Range/Units White Blood Count 11.6 H 4.3-11.0 10^3/uL Red Blood Count 4.43 4.35-5.85 10^6/uL Hemoglobin 11.9 11.5-16.0 G/DL Hematocrit 39 35-52 % Mean Corpuscular Volume 88 80-99 FL Mean Corpuscular Hemoglobin 27 25-34 PG Mean Corpuscular Hemoglobin Concent 31 L 32-36 G/DL Red Cell Distribution Width 15.9 H 10.0-14.5 % Platelet Count 365 130-400 10^3/uL Mean Platelet Volume 10.7 H 7.4-10.4 FL Neutrophils (%) (Auto) 75 42-75 % Lymphocytes (%) (Auto) 15 12-44 % Monocytes (%) (Auto) 8 0-12 % Eosinophils (%) (Auto) 2 0-10 % Basophils (%) (Auto) 1 0-10 % Neutrophils # (Auto) 8.7 H 1.8-7.8 X 10^3 Lymphocytes # (Auto) 1.8 1.0-4.0 X 10^3 Monocytes # (Auto) 0.9 0.0-1.0 X 10^3 Eosinophils # (Auto) 0.2 0.0-0.3 10^3/uL Basophils # (Auto) 0.1 0.0-0.1 10^3/uL Sodium Level 141 135-145 MMOL/L Potassium Level 4.0 3.6-5.0 MMOL/L Chloride Level 101 98-107 MMOL/L Carbon Dioxide Level 32 21-32 MMOL/L Anion Gap 8 5-14 MMOL/L Blood Urea Nitrogen 11 7-18 MG/DL Creatinine 0.79 0.60-1.30 MG/DL Estimat Glomerular Filtration Rate > 60 BUN/Creatinine Ratio 14 Glucose Level 117 H 70-105 MG/DL Calcium Level 9.5 8.5-10.1 MG/DL Corrected Calcium 9.2 8.5-10.1 MG/DL Total Bilirubin 0.3 0.1-1.0 MG/DL Aspartate Amino Transf (AST/SGOT) 23 5-34 U/L Alanine Aminotransferase (ALT/SGPT) 21 0-55 U/L Alkaline Phosphatase 87 40-136 U/L Total Protein 7.3 6.4-8.2 GM/DL Albumin 4.4 3.2-4.5 GM/DL Amylase Level 19 L 25-125 U/L Lipase 21 8-78 U/L Urine Color YELLOW Urine Clarity CLEAR Urine pH 8 5-9 Urine Specific Donald 1.015 L 1.016-1.022 Urine Protein NEGATIVE NEGATIVE Urine Glucose (UA) NEGATIVE NEGATIVE Urine Ketones NEGATIVE NEGATIVE Urine Nitrite NEGATIVE NEGATIVE Urine Bilirubin NEGATIVE NEGATIVE Urine Urobilinogen NORMAL NORMAL MG/DL Urine Leukocyte Esterase NEGATIVE NEGATIVE Urine RBC (Auto) 1+ H NEGATIVE Urine RBC 0-2 /HPF Urine WBC NONE /HPF Urine Squamous Epithelial Cells 5-10 /HPF Urine Crystals NONE /LPF Urine Bacteria NEGATIVE /HPF Urine Casts NONE /LPF Urine Mucus NEGATIVE /LPF Urine Culture Indicated NO My Orders Orders - ANTOINE MORRISON Comprehensive Metabolic Panel (01/13/18 10:56) Lipase (01/13/18 10:56) Amylase (01/13/18 10:56) Ua Culture If Indicated (01/13/18 10:56) Saline Lock/Iv-Start (01/13/18 10:56) Cbc With Automated Diff (01/13/18 11:36) Ns Iv 1000 Ml (Sodium Chloride 0.9%) (01/13/18 11:45) Fentanyl Injection (Sublimaze Injection (01/13/18 11:45) Ct Abdomen/Pelvis W (01/13/18 11:41) Iohexol Injection (Omnipaque 350 Mg/Ml 1 (01/13/18 12:00) Ns (Ivpb) (Sodium Chloride 0.9%) (01/13/18 12:00) Ns Iv 500 Ml (Sodium Chloride 0.9%) (01/13/18 12:45) Medications Given in ED Vital Signs/I&O 01/13/18 01/13/18 10:55 13:28 Temp 98.4 Pulse 103 86 Resp 18 16 B/P (MAP) 187/99 (128) 155/90 Pulse Ox 93 96 O2 Delivery Nasal Cannula Nasal Cannula O2 Flow Rate 3.00 3.00 Blood Pressure Mean: 128 Progress Progress Note : Time: 12:34 Progress Note I have seen and evaluated the patient. She is back from CT scan and she is pain- free at this time. I will be giving her a 500 mL bolus of normal saline to help with flushing of kidneys given history of renal failure. Her kidney function was normal at this visit. Awaiting radiologist report at this time. 1249: I informed the patient of normal laboratory findings, normal CT findings, and plans for discharge and close follow-up with Mateusz John. She agrees with plan of care, return precautions were given. Diagnostic Imaging Diagonstic Imaging: CT Plain Films/CT/US/NM/MRI: abdomen, pelvis Comments NAME: [facility] REC#: [id number] PT STATUS: REG ER : 1945 PHYSICIAN: ANTOINE MORRISON ADMIT DATE: 01/13/18/ER Draft Date of Exam:01/13/18 CT ABDOMEN/PELVIS W PROCEDURE: CT abdomen and pelvis with contrast. TECHNIQUE: Multiple contiguous axial images were obtained through the abdomen and pelvis after administration of intravenous contrast. INDICATION: Left upper flank pain. Bloating and diarrhea. COMPARISON: 06/21/2011 FINDINGS: There is increased AP diameter of the lung bases with large bullous formation in the left lower lobe. Calcified granuloma is seen in the left lung base. There is atelectasis/scarring in the right lung base. The heart is normal in size. No pericardial effusion is seen. No focal hepatic lesion is seen. Decreased attenuation along the gallbladder fossa may be due to fatty infiltration. Cholecystectomy clips are seen. Prominence of the common bile duct is likely due to postcholecystectomy change. The spleen is mildly lobulated, but otherwise appears normal. The pancreas is unremarkable. The adrenal glands appear normal. There is a small hiatal hernia. No bowel distention is seen. The appendix is not seen, and likely removed. There are diverticuli along the transverse, descending, and sigmoid colon. No diverticulitis is seen. No free fluid or free air is identified. There is calcific atherosclerosis present. Minimal degenerative change is seen in the spine. IMPRESSION: 1. No acute abdominopelvic abnormality is seen. 2. Small hiatal hernia. 3. Colonic diverticulosis without diverticulitis. 4. Prominent bulla in the left lower lobe. Dictated on workstation # [id number] Dict: 01/13/18 1236 Trans: 01/13/18 1245 [id number] Interpreted by: RAKESH VARELA MD Electronically signed by: Reviewed: Reviewed by Me Departure Impression Primary Impression: Abdominal pain Additional Impression: Colon, diverticulosis Disposition: 01 HOME, SELF-CARE Condition: Stable/Unchanged Departure-Patient Inst. Decision time for Depature: 13:11 Referrals: SVEN VIGIL MD (PCP) Primary Care Physician Patient Instructions: Diverticulosis (DC) Add. Discharge Instructions: Take your home medications as previously prescribed. Follow-up with Mateusz John within 1 week for recheck. Return back to the emergency room for any worsening symptoms or concerns as needed. All discharge instructions reviewed with patient and/or family. Voiced understanding. ANTOINE MORRISON Jan 13, 2018 11:22
--- OUTSIDE RECORDS SUMMARY | 2018-01-13 11:22 | XMS REPORT ---
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 Name Role Phone ELOY AHUMADA PCP Unavailable ELOY AHUMADA PreferredProvider Unavailable Allergies and Adverse Reactions Name Reaction Notes Depo-Medrol Pain, muscle spasms, insomnia Decadron Pain, Muscle spasms, insomnia Plan of Treatment Planned Activity Comments Planned Date Planned Time Plan/Goal BNP 05/15/2016 12:00 AM CMP 07/05/2016 12:00 AM CMP 07/12/2016 12:00 AM CMP 07/23/2016 12:00 AM cervical pain 06/15/2015 11:00 AM [...] mg oral tablet 06/29/2016 daily as directed Xanax 0.5 mg oral tablet 07/06/2016 take 1 tablet (0.5 mg) by oral route 3 times per day Sinemet 10-100 mg oral tablet 07/16/2016 10/14/2016 take 1 tablet by oral route 3 times per day for 30 days Symbicort 160-4.5 mcg/actuation inhalation HFA aerosol inhaler 07/27/2016 inhale 2 puffs by inhalation route 2 times per day in the morning and evening Percocet 5-325 mg oral tablet 08/07/2016 take 1 tablet by oral route every 6 hours as needed spironolactone 50 mg oral tablet 08/20/2016 11/18/2016 take 1 tablet (50 mg) by oral route once daily for 30 days Name Start Date Expiration [...] HC BMI BSA BMI Percentile O2 Sat(%) 08/20/2016 1:15:00 PM 118 mmHg 80 mmHg [...] Reviewed 01/24/2015 12:00 AM Toradol 60 Mg [facility]#7675-8880-27 Reviewed 03/25/2015 12:00 AM Toradol 60 Mg [facility]#5854-6131-42 Reviewed 04/06/2015 12:00 AM MRI NECK SPINE W/O DYE Reviewed 05/27/2015 12:00 AM Decadron, Per 1 Mg [facility]# [address]-57 Reviewed 05/27/2015 12:00 AM Depo-Medrol, Per 80 Mg [facility]#2556-4947-45 Reviewed 05/27/2015 12:00 AM Rocephin 1 gram [facility]#4220-2080-24 Reviewed 02/26/2011 12:00 AM THER/PROPH/DIAG INJ SC/IM Reviewed 02/26/2011 12:00 AM Decadron Inj.1mg-([facility]) [facility] #[id number] Reviewed 02/26/2011 12:00 AM Depo-Medrol 80 Mg Im/[facility] 0009-039283 Reviewed 12/15/2015 12:00 AM Rocephin 1 gram [facility]#6087-6831-09 Reviewed 06/03/2016 12:00 AM THERAPEUTIC PROPHYLACTIC/DX INJECTION SUBQ/IM Reviewed 06/03/2016 12:00 AM Decadron 8mg Injection, [facility] Medicare Reviewed 06/27/2016 12:00 AM COMPREHEN METABOLIC PANEL Returned 06/27/2016 12:00 AM URINALYSIS AUTO W/SCOPE Returned 03/11/2012 12:00 AM THER/PROPH/DIAG INJ SC/IM Reviewed 03/11/2012 12:00 AM Decadron, Per 1 Mg [facility]# [address]-64 Reviewed 03/11/2012 12:00 AM Depo-Medrol, Per 80 Mg [facility]#2147-6200-21 Reviewed 03/11/2012 12:00 AM Rocephin 1 gram [facility]#6088-8522-61 Reviewed 04/11/2012 12:00 AM Flu Injection 3 Years And Above [facility]# [address]-26 [facility] Reviewed 10/27/2012 12:00 AM THER/PROPH/DIAG INJ SC/IM Reviewed 10/27/2012 12:00 AM Decadron, Per 1 Mg [facility]# [address]-68 Reviewed 10/27/2012 12:00 AM Depo-Medrol, Per 80 Mg [facility]#9950-0546-85 Reviewed 12/26/2012 12:00 AM COMPLETE CBC W/AUTO DIFF WBC Reviewed 12/26/2012 12:00 AM COMPREHEN METABOLIC PANEL Reviewed 12/26/2012 12:00 AM LIPID PANEL Reviewed 12/26/2012 12:00 AM ASSAY THYROID STIM HORMONE Reviewed 08/27/2013 12:00 AM THER/PROPH/DIAG INJ SC/IM Reviewed 08/27/2013 12:00 AM Toradol 60 Mg [facility]#1431-4537-83 Reviewed 12/01/2013 12:00 AM THER/PROPH/DIAG INJ SC/IM Reviewed 12/01/2013 12:00 AM Toradol 60 Mg [facility]#4304-5092-25 Reviewed 07/17/2010 12:00 AM THER/PROPH/DIAG INJ SC/IM Reviewed 07/17/2010 12:00 AM Decadron Inj.6mg-([facility]) [facility] #[id number] Reviewed 07/17/2010 12:00 AM Depo-Medrol 120 Mg Im/[facility] 0009-409333 Reviewed 04/21/2014 12:00 AM IMMUNIZATION ADMIN Reviewed 04/21/2014 12:00 AM THER/PROPH/DIAG INJ SC/IM Reviewed 04/21/2014 12:00 AM Decadron, Per 1 Mg [facility]# [address]-60 Reviewed 04/21/2014 12:00 AM Depo-Medrol, Per 80 Mg [facility]#7387-4438-80 Reviewed 05/14/2014 12:00 AM THER/PROPH/DIAG INJ SC/IM Reviewed 05/14/2014 12:00 AM Decadron, Per 1 Mg [facility]# [address]-76 Reviewed 05/14/2014 12:00 AM Depo-Medrol, Per 80 Mg [facility]#1491-0434-92 Reviewed 07/05/2014 12:00 AM THER/PROPH/DIAG INJ SC/IM Reviewed 07/05/2014 12:00 AM Decadron, Per 1 Mg [facility]# [address]-90 Reviewed 07/05/2014 12:00 AM Rocephin 1 gram [facility]#8580-2655-65 Reviewed Results Summary Data and Description Results [...] Chronic Pulmonary hypertension Aug 20 2016 1:15PM Payers Insurance Name Company Name Plan Name Plan Number Policy Number Policy Group Number Start Date Medicare RHC Medicare RHC [id number] N/A [place] [employer] Prog - RHC [place] [employer] - RHC [id number] N/A Medicare Part A Medicare - Lab/Xray [id number] N/A Medicare Part B Medicare Of [place] [id number] N/A [place] [facility] [place] [facility] [id number] N/A Medicare Part A Medicare Part A [id number] N/A History of Encounters Visit Date Visit Type Provider 08/20/2016 Office visit ELOY BRITT 08/15/2016 Office visit ELOY BRITT 08/09/2016 Office visit ELOY BRITT 07/27/2016 Office visit ELOY BRITT 07/18/2016 Office visit ELOY BRITT 07/16/2016 Office visit ELOY BRITT 07/06/2016 Office visit ELOY BRITT 06/29/2016 Office visit ELOY BRITT 06/26/2016 Office visit ELOY BRITT 06/03/2016 Office visit ELOY AHUMADA PA 05/31/2016 Office visit ELOY AHUMADA PA 05/14/2016 Office visit ELOY AHUMADA PA 04/17/2016 Office visit ELOY AHUMADA PA 04/02/2016 Office visit ELOY AHUMADA PA 03/22/2016 Hospital Jhony Phelps MD 03/22/2016 [facility] Mukul Lopez MD 12/15/2015 Office visit [...]
--- OUTSIDE RECORDS SUMMARY | 2018-01-13 11:23 | XMS REPORT ---
Author ELOY Fleming [facility] Address [address] [place], [place] [address] Care Team Providers Care Senior Bioinformatics Scientist Name Role Phone ELOY AHUMADA PCP Unavailable Allergies and Adverse Reactions Name Reaction Notes Depo-Medrol Pain, muscle spasms, insomnia Decadron Pain, Muscle spasms, insomnia Plan of Treatment Planned Activity Comments Planned Date Planned Time Plan/Goal BNP 05/15/2016 12:00 AM CMP 07/05/2016 12:00 AM cervical pain 06/15/2015 11:00 AM [...] needed, up to 6 doses per day Breo Ellipta 100-25 mcg/dose inhalation blister with device 10/17/2015 inhale 1 puff by inhalation route once daily at the same time each day pantoprazole 40 mg oral tablet,delayed release [...] 30 days Percocet 5-325 mg oral tablet 04/02/2016 take 1 tablet by oral route every 6 hours as needed Ativan 1 mg oral tablet 04/17/2016 take [...] times a day for 30 days Zithromax Z-Ejrome 250 mg oral tablet 06/22/2013 take 2 [...] transdermal route once daily for 4 weeks phentermine 37.5 mg oral tablet 10/11/2015 04/18/2016 [...] 07/01/2016 Hypoxemia requiring supplemental oxygen Active 07/01/2016 Vital Signs Date Time BP-Sys(mm[Hg] BP-Zaynab(mm[Hg]) HR(bpm) RR(rpm) Temp WT HT HC BMI BSA BMI Percentile O2 Sat(%) 07/06/2016 11:23:00 AM 95 mmHg 70 mmHg [...] Reviewed 01/24/2015 12:00 AM Toradol 60 Mg [facility]#9417-0020-14 Reviewed 03/25/2015 12:00 AM Toradol 60 Mg [facility]#1048-3447-84 Reviewed 04/06/2015 12:00 AM MRI NECK SPINE W/O DYE Reviewed 05/27/2015 12:00 AM Decadron, Per 1 Mg [facility]# [address]-48 Reviewed 05/27/2015 12:00 AM Depo-Medrol, Per 80 Mg [facility]#9875-4175-79 Reviewed 05/27/2015 12:00 AM Rocephin 1 gram [facility]#7638-7294-26 Reviewed 02/26/2011 12:00 AM THER/PROPH/DIAG INJ SC/IM Reviewed 02/26/2011 12:00 AM Decadron Inj.1mg-([facility]) [facility] #[id number] Reviewed 02/26/2011 12:00 AM Depo-Medrol 80 Mg Im/[facility] [id number] Reviewed 12/15/2015 12:00 AM Rocephin 1 gram [facility]#4990-7721-02 Reviewed 06/03/2016 12:00 AM THERAPEUTIC PROPHYLACTIC/DX INJECTION SUBQ/IM Reviewed 06/03/2016 12:00 AM Decadron 8mg Injection, [facility] Medicare Reviewed 06/27/2016 12:00 AM COMPREHEN METABOLIC PANEL Returned 06/27/2016 12:00 AM URINALYSIS AUTO W/SCOPE Returned 03/11/2012 12:00 AM THER/PROPH/DIAG INJ SC/IM Reviewed 03/11/2012 12:00 AM Decadron, Per 1 Mg [facility]# [address]-91 Reviewed 03/11/2012 12:00 AM Depo-Medrol, Per 80 Mg [facility]#5267-7454-49 Reviewed 03/11/2012 12:00 AM Rocephin 1 gram [facility]#7593-8253-48 Reviewed 04/11/2012 12:00 AM Flu Injection 3 Years And Above [facility]# [address]-88 [facility] Reviewed 10/27/2012 12:00 AM THER/PROPH/DIAG INJ SC/IM Reviewed 10/27/2012 12:00 AM Decadron, Per 1 Mg [facility]# [address]-77 Reviewed 10/27/2012 12:00 AM Depo-Medrol, Per 80 Mg [facility]#0383-8323-96 Reviewed 12/26/2012 12:00 AM COMPLETE CBC W/AUTO DIFF WBC Reviewed 12/26/2012 12:00 AM COMPREHEN METABOLIC PANEL Reviewed 12/26/2012 12:00 AM LIPID PANEL Reviewed 12/26/2012 12:00 AM ASSAY THYROID STIM HORMONE Reviewed 08/27/2013 12:00 AM THER/PROPH/DIAG INJ SC/IM Reviewed 08/27/2013 12:00 AM Toradol 60 Mg [facility]#3217-1419-70 Reviewed 12/01/2013 12:00 AM THER/PROPH/DIAG INJ SC/IM Reviewed 12/01/2013 12:00 AM Toradol 60 Mg [facility]#3477-2723-18 Reviewed 07/17/2010 12:00 AM THER/PROPH/DIAG INJ SC/IM Reviewed 07/17/2010 12:00 AM Decadron Inj.6mg-([facility]) [facility] #[id number] Reviewed 07/17/2010 12:00 AM Depo-Medrol 120 Mg Im/[facility] [id number] Reviewed 04/21/2014 12:00 AM IMMUNIZATION ADMIN Reviewed 04/21/2014 12:00 AM THER/PROPH/DIAG INJ SC/IM Reviewed 04/21/2014 12:00 AM Decadron, Per 1 Mg [facility]# [address]-51 Reviewed 04/21/2014 12:00 AM Depo-Medrol, Per 80 Mg [facility]#7426-1874-26 Reviewed 05/14/2014 12:00 AM THER/PROPH/DIAG INJ SC/IM Reviewed 05/14/2014 12:00 AM Decadron, Per 1 Mg [facility]# [address]-49 Reviewed 05/14/2014 12:00 AM Depo-Medrol, Per 80 Mg [facility]#8838-5528-59 Reviewed 07/05/2014 12:00 AM THER/PROPH/DIAG INJ SC/IM Reviewed 07/05/2014 12:00 AM Decadron, Per 1 Mg [facility]# [address]-47 Reviewed 07/05/2014 12:00 AM Rocephin 1 gram [facility]#2046-0352-42 Reviewed Results Summary Data and Description Results [...] exertion 07/01/2016 Hypoxemia requiring supplemental oxygen 07/01/2016 Irritable Bowel Syndrome Nov 29 2010 10:16AM [...] breath on exertion Jul 06 2016 11:24AM Payers Insurance Name Company Name Plan Name Plan Number Policy Number Policy Group Number Start Date Medicare RHC Medicare RHC [id number] N/A [place] [employer] - RHC [place] [employer] - RHC [id number] N/A Medicare Part A Medicare - Lab/Xray [id number] N/A Medicare Part B Medicare Of [place] [id number] N/A [place] Medical Assistance [facility] Medical Assistance Prog [id number] N/A Medicare Part A Medicare Part A [id number] N/A History of Encounters Visit Date Visit Type Provider 07/06/2016 Office visit ELOY BRITT 06/29/2016 Office visit ELOY BRITT 06/26/2016 Office visit ELOY BRITT 06/03/2016 Office visit ELOY BRITT 05/31/2016 Office visit ELOY BRITT 05/14/2016 Office visit ELOY BRITT 04/17/2016 Office visit ELOY BRITT 04/02/2016 Office visit ELOY BRITT 03/22/2016 Hospital Jhony Phelps MD 03/22/2016 Leann Lopez MD 12/15/2015 Office visit ELOY BRITT 10/24/2015 Office visit ELOY BRITT 10/11/2015 Office visit ELOY AHUMADA PA 07/05/2015 Office visit ELOY AHUMADA PA 06/09/2015 Office visit ELOY AHUMADA PA 05/12/2015 Office visit ELYO AHUMADA PA 03/25/2015 Office visit ELOY AHUMADA [...] Eloy Ahumada PA-C 07/17/2010 Office visit Eloy [facility] 01/17/2010 Office visit Eloy [facility] 12/30/2009 Office visit Eloy [facility] 07/22/2009 Office visit Eloy [facility] 06/20/2009 Office visit Eloy [facility] 02/18/2009 Office visit Eloy Ahumada PA-C
--- OUTSIDE RECORDS SUMMARY | 2018-01-13 11:25 | XMS REPORT ---
Author ELOY Fleming [facility] Address [address] [place], [place] [address] Care Team Providers Care Group Billing Coordinator Name Role Phone ELOY AHUMADA PCP Unavailable [...] per day Xanax 0.5 mg oral tablet 12/18/2016 take 1 tablet (0.5 mg) by oral route 3 times per day nystatin 100,000 unit/mL oral suspension 02/14/2017 take 4 milliliters ( 400,000 unit) by oral route 4 times per day Levaquin 750 mg oral tablet 02/26/2017 03/08/2017 take 1 tablet (750 mg) by oral route once daily for 10 days Name Start Date Expiration Date SIG [...] 01/29/2017 Rotator cuff tendinitis, right Active 01/29/2017 Vital Signs Date Time BP-Sys(mm[Hg] BP-Zaynab(mm[Hg]) HR(bpm) RR(rpm) Temp WT HT HC BMI BSA BMI Percentile O2 Sat(%) 02/26/2017 1:49:00 PM 126 mmHg 78 mmHg [...] Reviewed 01/24/2015 12:00 AM Toradol 60 Mg [facility]#8788-2012-94 Reviewed 03/25/2015 12:00 AM Toradol 60 Mg [facility]#4335-1035-68 Reviewed 04/06/2015 12:00 AM MRI NECK SPINE W/O DYE Reviewed 05/27/2015 12:00 AM Decadron, Per 1 Mg [facility]# [address]-61 Reviewed 05/27/2015 12:00 AM Depo-Medrol, Per [address] [facility]#1584-6805-12 Reviewed 05/27/2015 12:00 AM Rocephin [address] [facility]#4312-0756-79 Reviewed 02/26/2011 12:00 AM THER/PROPH/DIAG INJ SC/IM Reviewed 02/26/2011 12:00 AM Decadron Inj.1mg-([facility]) [facility] #[id number] Reviewed 02/26/2011 12:00 AM Depo-Medrol 80 Mg Im/[facility] [id number] Reviewed 12/15/2015 12:00 AM Rocephin [address] [facility]#5270-5309-01 Reviewed 06/03/2016 12:00 AM THERAPEUTIC PROPHYLACTIC/DX INJECTION [...] 09/07/2016 12:00 AM Rocephin 1 gram Injection, [facility] Medicare Reviewed 09/03/2016 12:00 AM THERAPEUTIC PROPHYLACTIC/DX INJECTION SUBQ/IM Reviewed 09/03/2016 12:00 AM Rocephin 1 gram Injection, [facility] Medicare Reviewed 10/22/2016 12:00 AM THERAPEUTIC PROPHYLACTIC/DX INJECTION SUBQ/IM Reviewed 10/18/2016 12:00 AM Lasix, Up to [address] [facility]#1829-5510-58 [facility] Medicare Reviewed 11/16/2016 12:00 AM ASSAY OF NATRIURETIC PEPTIDE Reviewed 12/03/2016 12:00 AM THERAPEUTIC PROPHYLACTIC/DX INJECTION SUBQ/IM Reviewed 12/03/2016 12:00 AM Decadron 8mg Injection, [facility] Medicare Reviewed 11/30/2016 12:00 AM THERAPEUTIC PROPHYLACTIC/DX INJECTION SUBQ/IM Reviewed 11/30/2016 12:00 AM Decadron 8mg Injection, [facility] Medicare Reviewed 11/30/2016 12:00 AM Rocephin 1 gram Injection, [facility] Medicare Reviewed 11/30/2016 12:00 AM AIRWAY INHALATION TREATMENT Reviewed 01/09/2017 12:00 AM THERAPEUTIC PROPHYLACTIC/DX INJECTION SUBQ/IM Reviewed 01/09/2017 12:00 AM Decadron 8mg Injection Reviewed 01/28/2017 12:00 AM DRAIN/INJ JOINT/BURSA W/O US Reviewed 02/01/2017 12:00 AM DRAIN/INJ JOINT/BURSA W/O US Reviewed 03/11/2012 12:00 AM THER/PROPH/DIAG INJ SC/IM Reviewed 03/11/2012 12:00 AM Decadron, Per [address] [facility]# [address]-43 Reviewed 03/11/2012 12:00 AM Depo-Medrol, Per [address] [facility]#8660-9257-39 Reviewed 03/11/2012 12:00 AM Rocephin [address] [facility]#1297-1620-63 Reviewed 04/11/2012 12:00 AM Flu Injection [address] Years And Above [facility]# [address]-05 [facility] Reviewed 10/27/2012 12:00 AM THER/PROPH/DIAG INJ SC/IM Reviewed 10/27/2012 12:00 AM Decadron, Per [address] [facility]# [address]-63 Reviewed 10/27/2012 12:00 AM Depo-Medrol, Per [address] [facility]#0485-8877-60 Reviewed 12/26/2012 12:00 AM COMPLETE CBC W/AUTO DIFF WBC Reviewed 12/26/2012 12:00 AM COMPREHEN METABOLIC PANEL Reviewed 12/26/2012 12:00 AM LIPID PANEL Reviewed 12/26/2012 12:00 AM ASSAY THYROID STIM HORMONE Reviewed 08/27/2013 12:00 AM THER/PROPH/DIAG INJ SC/IM Reviewed 08/27/2013 12:00 AM Toradol [address] [facility]#4374-1453-12 Reviewed 12/01/2013 12:00 AM THER/PROPH/DIAG INJ SC/IM Reviewed 12/01/2013 12:00 AM Toradol [address] [facility]#1746-0833-45 Reviewed 07/17/2010 12:00 AM THER/PROPH/DIAG INJ SC/IM Reviewed 07/17/2010 12:00 AM Decadron Inj.6mg-([facility]) [facility] #[id number] Reviewed 07/17/2010 12:00 AM Depo-Medrol 120 Mg Im/[facility] [id number] Reviewed 04/21/2014 12:00 AM IMMUNIZATION ADMIN Reviewed 04/21/2014 12:00 AM THER/PROPH/DIAG INJ SC/IM Reviewed 04/21/2014 12:00 AM Decadron, Per [address] [facility]# [address]-82 Reviewed 04/21/2014 12:00 AM Depo-Medrol, Per [address] [facility]#4085-5322-51 Reviewed 05/14/2014 12:00 AM THER/PROPH/DIAG INJ SC/IM Reviewed 05/14/2014 12:00 AM Decadron, Per [address] [facility]# [address]-45 Reviewed 05/14/2014 12:00 AM Depo-Medrol, Per [address] [facility]#4671-7338-38 Reviewed 07/05/2014 12:00 AM THER/PROPH/DIAG INJ SC/IM Reviewed 07/05/2014 12:00 AM Decadron, Per [address] [facility]# [address]-09 Reviewed 07/05/2014 12:00 AM Rocephin [address] [facility]#7488-1955-12 Reviewed Results Summary Date and Description Results [...] right 01/29/2017 Rotator cuff tendinitis, right 01/29/2017 Seasonal Allergies Feb 28 2011 2:02PM Costochondritis [...] Acute Productive cough Feb 26 2017 1:50PM Payers Insurance Name Company Name Plan Name Plan Number Policy Number Policy Group Number Start Date Medicare RHC Medicare RHC [id number] N/A [place] [employer] Prog - RHC [facility] 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 [id number] N/A Medicare Part A Medicare - Lab/Xray [id number] N/A Medicare Part B Medicare Of [place] [id number] N/A [place] Medical Assistance Program [place] Medical Assistance Prog [id number] N/A Medicare Part A Medicare Part A [id number] N/A History of Encounters Visit Date Visit Type Provider 02/26/2017 Office visit ELOY BRITT 02/14/2017 Office visit ELOY BRITT 02/14/2017 Office visit ELOY BRITT 02/01/2017 Office visit ELOY BRITT 01/28/2017 Office visit ELOY BRITT 01/21/2017 Office visit ELOY BRITT 01/09/2017 Office visit ELOY BRITT 01/03/2017 Office visit ELOY BRITT 12/28/2016 Office visit ELOY BRITT 12/25/2016 Office visit ELOY BRITT 12/17/2016 Office visit ELOY BRITT 12/05/2016 Office visit ELOY BRITT 12/03/2016 Office visit ELOY BRITT 11/30/2016 Office visit ELOY BRITT 11/29/2016 Office visit ELOY BRITT 11/16/2016 Office visit ELOY BRITT 11/01/2016 Office visit ELOY BRITT 10/25/2016 Office visit ELOY BRITT 10/18/2016 Office visit ELOY BRITT 10/04/2016 Office visit ELOY AHUMADA PA 09/17/2016 [...] ELOY AHUMADA PA 04/17/2016 Office visit ELOY BRITT 04/02/2016 Office visit ELOY BRITT 03/22/2016 Hospital Jhony Phelps MD 03/22/2016 [facility] Mukul Lopez MD 12/15/2015 Office visit ELOY AHUMADA PA 10/24/2015 Office visit ELOY BRITT 10/11/2015 Office [...]
--- OUTSIDE RECORDS SUMMARY | 2018-01-13 11:26 | XMS REPORT ---
Author Author [facility] Organization [facility] Address [address] [place], [place] [id number] Care Team Providers Care Arts And Crafts Instructor Name Role Phone PCP Unavailable Allergies and Adverse Reactions Name Reaction Notes Depo-Medrol Pain, muscle spasms, insomnia Decadron Pain, Muscle spasms, insomnia Plan of Treatment Not available. Medications Active Name Start Date Estimated Completion Date SIG Comments pantoprazole oral tablet,delayed release (DR/EC) 40 mg 03/05/2014 take 1 tablet (40 mg) by oral route once daily diazepam oral tablet 5 mg 02/18/2014 1/2 to 1 PO BID PRN anxiety fluticasone nasal spray,suspension 50 mcg/actuation 05/11/2014 1 SPRAY IN EACH NOSTRIL TWICE DAILY ipratropium-albuterol inhalation solution for nebulization 0.5 mg-3 mg(2.5 mg base)/3 mL 05/11/2014 inhale 3 milliliters by nebulization route 4 times per day and as needed, up to 6 doses per day Zithromax Z-Jerome oral tablet 250 mg 11/29/2014 12/04/2014 take 2 tablets (500 mg ) by oral route once daily for 1 day then 1 tablet (250 mg) by oral route once daily for 4 days promethazine-codeine oral syrup 6.25-10 mg/5 mL 11/29/2014 take 5 milliliters by oral route every 4-6 hours as needed, not to exceed 30 mL in 24 hours Name Start Date Expiration Date SIG Comments Prevacid Oral Capsule, Delayed Release(E.C.) 30 mg 06/12/2010 10/10/2010 take 1 capsule (30 mg) by oral route once daily before a meal for 30 days Vicodin Oral Tablet 5-500 mg 11/13/2010 11/13/2010 take 1 tablet by oral route every 6 hours as needed for pain Bentyl Oral Capsule 10 mg 11/29/2010 take 1 capsule (10 mg) by oral route 3 times per day Medrol (Jerome) Oral Tablets, Dose Pack 4 mg 08/31/2011 09/06/2011 take as directed for 6 days Celexa Oral Tablet 20 mg 09/11/2011 01/09/2012 take 1 tablet (20 mg) by oral route once daily for 30 days Cipro Oral Tablet 500 mg 09/12/2011 09/12/2011 take 1 tablet (500 mg) by oral route 2 times per day Xanax Oral Tablet 0.5 mg 12/13/2011 12/13/2011 take 0.5 tablet by oral route 3 times a day as needed Zithromax Z-Jerome Oral tablet 250 mg 06/05/2012 06/10/2012 take 2 tablets (500 mg ) by oral route once daily for 1 day then 1 tablet (250 mg) by oral route once daily for 4 days Cipro Oral tablet 500 mg 08/18/2012 take 1 tablet (500 mg) by oral route 2 times per day Crestor Oral tablet 10 mg 10/13/2012 10/13/2012 take 1 tablet (10 mg) by oral route once daily at bedtime Cymbalta Oral capsule,delayed release(DR/EC) 30 mg 12/02/2012 01/01/2013 take 1 capsules (30 mg) by oral route once daily Bactrim DS oral tablet 800-160 mg 06/02/2013 06/12/2013 take 1 tablet by oral route 2 times a day for 10 days Flonase nasal spray,suspension 50 mcg/actuation 06/02/2013 11/29/2013 inhale 1 spray by nasal route 2 times a day for 30 days Zithromax Z-Jerome Oral Tablet 250 mg 06/22/2013 take 2 tablets (500 mg) by oral route once daily for 1 day then 1 tablet (250 mg) by oral route once daily for 4 days atenolol oral tablet 25 mg 08/27/2013 11/25/2013 1/2 BID dicyclomine oral capsule 10 mg 11/12/2013 take 1 capsule (10 mg) by oral route 3 times per day oxycodone-acetaminophen oral tablet 5-325 mg 04/05/2014 take 1 tablet by oral route every 6 hours as needed 3 Rx's Levaquin oral tablet 500 mg 04/22/2014 take 1 tablet (500 mg) by oral route once daily for 10 days prednisone oral tablet 20 mg 07/05/2014 4x2 days 3x2 days 2x2 days 1x2 days Nicoderm CQ transdermal patch 24 hour 21 mg/24 hr 08/10/2014 09/07/2014 apply 1 patch (21 mg) by transdermal route once daily for 4 weeks Biaxin oral tablet 500 mg 08/16/2014 08/26/2014 take 1 tablet by oral route 2 times a day for 10 days Discontinued Name Start Date Discontinued Date SIG Comments Keflex Oral Capsule 500 mg 06/20/2009 04/17/2012 take 1 capsule (500 mg) by oral route every 6 hours Mobic Oral Tablet 15 mg 12/30/2009 04/17/2012 take 1 tablet (15 mg) by oral route once daily pantoprazole Oral Tablet, Delayed Release (E.C.) 40 mg 11/20/2011 08/18/2012 take 1 tablet (40 mg) by oral route 2 times per day for 30 days omeprazole Oral tablet,delayed release (DR/EC) 20 mg 08/18/2012 04/09/2013 take 1 tablet by oral route 2 times a day Voltaren topical gel 1 % 12/02/2013 03/06/2014 apply 2 gram to the affected area(s) by topical route 4 times per day Problem List Description Status Onset Gastroesophageal Reflux Active Anxiety Disorder Active Esophageal Reflux Active Hyperlipidemia Active Diverticulitis Active Diverticulosis Of Colon Active 09/07/2012 Low Back Pain Active 03/09/2013 Osteoarthrosis, generalized, multiple sites Active 03/09/2013 Tobacco Abuse Active 08/31/2013 Chronic obstructive pulmonary disease Active 08/31/2013 Essential Hypertension Active 03/06/2014 Vital Signs Date Time BP-Sys(mm[Hg] BP-Zaynab(mm[Hg]) HR(bpm) RR(rpm) Temp WT HT HC BMI BSA BMI Percentile O2 Sat(%) 11/17/2014 11:40:00 AM 135 mmHg 70 mmHg [...] of Procedures Date Ordered Description Order Status 02/26/2011 12:00 AM THER/PROPH/DIAG INJ SC/IM Reviewed 03/11/2012 12:00 AM THER/PROPH/DIAG INJ SC/IM Reviewed 10/27/2012 12:00 AM THER/PROPH/DIAG INJ SC/IM Reviewed 12/26/2012 12:00 AM COMPLETE CBC W/AUTO DIFF WBC Reviewed 12/26/2012 12:00 AM COMPREHEN METABOLIC PANEL Reviewed 12/26/2012 12:00 AM LIPID PANEL Reviewed 12/26/2012 12:00 AM ASSAY THYROID STIM HORMONE Reviewed 08/27/2013 12:00 AM THER/PROPH/DIAG INJ SC/IM Reviewed 12/01/2013 12:00 AM THER/PROPH/DIAG INJ SC/IM Reviewed 07/17/2010 12:00 AM THER/PROPH/DIAG INJ SC/IM Reviewed 04/21/2014 12:00 AM IMMUNIZATION ADMIN Reviewed 04/21/2014 12:00 AM THER/PROPH/DIAG INJ SC/IM Reviewed 05/14/2014 12:00 AM THER/PROPH/DIAG INJ SC/IM Reviewed 07/05/2014 12:00 AM THER/PROPH/DIAG INJ SC/IM Reviewed Results Summary Not available. History Of Immunizations Name Date Admin Mfg [...] 30 2009 9:15AM Tobacco Abuse 08/31/2013 Chronic obstructive pulmonary disease 08/31/2013 Low Back Pain Jan 17 2010 9:32AM Essential Hypertension 03/06/2014 Cough Jul 17 2010 11:15AM Bronchitis, Acute [...] 11:41AM Seasonal Allergies Nov 17 2014 11:41AM Payers Insurance Name Company Name Plan Name Plan Number Policy Number Policy Group Number Start Date Medicare Part A Medicare Part A [id number] N/A [facility] 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 [facility] Asst Prog - C [id number] N/A History of Encounters Visit Date Visit Type Provider 11/17/2014 Office visit ELOY BRITT 08/13/2014 Office visit ELOY BRITT 07/08/2014 Voided ELOY BRITT 07/05/2014 Office visit ELOY BRITT 05/14/2014 Office visit ELOY BRITT 05/11/2014 Office visit ELOY BRITT 04/21/2014 Office visit ELOY BRITT 02/18/2014 Office visit ELOY BRITT 12/01/2013 Office visit ELOY BRITT 11/09/2013 Voided ELOY BRITT 08/27/2013 Office visit ELOY BRITT 06/19/2013 Office visit ELOY BRITT 06/01/2013 Office visit ELOY BRITT 03/06/2013 Office visit ELOY BRITT 12/02/2012 Office visit ELOY AHUMADA PA 10/27/2012 [...]
[2018-01-13 11:27] LABS: ALANINE AMINOTRANSFERASE 21 U/L (0-55); ALBUMIN 4.4 GM/DL (3.2-4.5); ALKALINE PHOSPHATASE 87 U/L (40-136); AMYLASE 19 U/L (25-125); BILIRUBIN,TOTAL 0.3 MG/DL (0.1-1.0); BUN/CREATININE RATIO 14; CALCIUM 9.5 MG/DL (8.5-10.1); CARBON DIOXIDE 32 MMOL/L (21-32); CHLORIDE 101 MMOL/L (98-107); CREATININE SERUM 0.79 MG/DL (0.60-1.30); GFR ESTIMATED > 60; GLUCOSE 117 MG/DL (70-105); LIPASE 21 U/L (8-78); SODIUM 141 MMOL/L (135-145); TOTAL PROTEIN 7.3 GM/DL (6.4-8.2)
--- OUTSIDE RECORDS SUMMARY | 2018-01-13 11:27 | XMS REPORT ---
Author ELOY Fleming [facility] Address [address] [place], [place] [address] Care Team Providers Care Toxicologist Name Role Phone ELOY AHUMADA PCP Unavailable [...] tablet 01/04/2015 1/2 po in the am pantoprazole 40 mg oral tablet,delayed release (DR/EC) 03/18/2015 TAKE 1 TABLET BY MOUTH ONCE DAILY Percocet 5-325 mg oral tablet 05/12/2015 take 1 tablet by oral route every 6 hours as needed Zithromax Z-Jerome 250 mg oral tablet 05/12/2015 [...] HC BMI BSA BMI Percentile O2 Sat(%) 05/12/2015 10:03:00 AM 148 mmHg 80 mmHg [...] Returned 01/24/2015 12:00 AM Toradol 60 Mg [facility]#3192-8546-63 Reviewed 03/25/2015 12:00 AM Toradol 60 Mg [facility]#8226-4532-40 Reviewed 04/06/2015 12:00 AM MRI NECK SPINE W/O DYE Returned 02/26/2011 12:00 AM THER/PROPH/DIAG INJ SC/IM Reviewed 02/26/2011 12:00 AM Decadron Inj.1mg-([facility]) [facility] #[id number] Reviewed 02/26/2011 12:00 AM Depo-Medrol 80 Mg Im/[facility] [id number] Reviewed 03/11/2012 12:00 AM THER/PROPH/DIAG INJ SC/IM Reviewed 03/11/2012 12:00 AM Decadron, Per 1 Mg [facility]# [address]-43 Reviewed 03/11/2012 12:00 AM Depo-Medrol, Per 80 Mg [facility]#9933-6494-65 Reviewed 03/11/2012 12:00 AM Rocephin 1 gram [facility]#2507-2932-74 Reviewed 04/11/2012 12:00 AM Flu Injection 3 Years And Above [facility]# [address]-31 RHC Reviewed 10/27/2012 12:00 AM THER/PROPH/DIAG INJ SC/IM Reviewed 10/27/2012 12:00 AM Decadron, Per 1 Mg [facility]# [address]-07 Reviewed 10/27/2012 12:00 AM Depo-Medrol, Per 80 Mg [facility]#3296-0403-75 Reviewed 12/26/2012 12:00 AM COMPLETE CBC W/AUTO DIFF WBC Reviewed 12/26/2012 12:00 AM COMPREHEN METABOLIC PANEL Reviewed 12/26/2012 12:00 AM LIPID PANEL Reviewed 12/26/2012 12:00 AM ASSAY THYROID STIM HORMONE Reviewed 08/27/2013 12:00 AM THER/PROPH/DIAG INJ SC/IM Reviewed 08/27/2013 12:00 AM Toradol 60 Mg [facility]#3749-6653-29 Reviewed 12/01/2013 12:00 AM THER/PROPH/DIAG INJ SC/IM Reviewed 12/01/2013 12:00 AM Toradol 60 Mg [facility]#9222-7396-06 Reviewed 07/17/2010 12:00 AM THER/PROPH/DIAG INJ SC/IM Reviewed 07/17/2010 12:00 AM Decadron Inj.6mg-([facility]) [facility] #[id number] Reviewed 07/17/2010 12:00 AM Depo-Medrol 120 Mg Im/[facility] [id number] Reviewed 04/21/2014 12:00 AM IMMUNIZATION ADMIN Reviewed 04/21/2014 12:00 AM THER/PROPH/DIAG INJ SC/IM Reviewed 04/21/2014 12:00 AM Decadron, Per 1 Mg [facility]# [address]-38 Reviewed 04/21/2014 12:00 AM Depo-Medrol, Per 80 Mg [facility]#9787-5981-34 Reviewed 05/14/2014 12:00 AM THER/PROPH/DIAG INJ SC/IM Reviewed 05/14/2014 12:00 AM Decadron, Per 1 Mg [facility]# [address]-15 Reviewed 05/14/2014 12:00 AM Depo-Medrol, Per 80 Mg [facility]#3960-5900-64 Reviewed 07/05/2014 12:00 AM THER/PROPH/DIAG INJ SC/IM Reviewed 07/05/2014 12:00 AM Decadron, Per 1 Mg [facility]# [address]-33 Reviewed 07/05/2014 12:00 AM Rocephin 1 gram [facility]#6775-8997-27 Reviewed Results Summary Data and Description Results [...] Cervical pain (neck) Apr 06 2015 8:04AM Payers Insurance Name Company Name Plan Name Plan Number Policy Number Policy Group Number Start Date Medicare Part A Medicare Part A [id number] N/A [place] [employer] [facility] [id number] N/A History of Encounters Visit Date Visit Type Provider 05/12/2015 Office visit ELOY BRITT 03/25/2015 Office [...] Office visit ELOY BRITT 11/09/2013 Voided ELOY AHUMADA PA 08/27/2013 Office [...]
--- OUTSIDE RECORDS SUMMARY | 2018-01-13 11:28 | XMS REPORT ---
Author ELOY Fleming [facility] Address [address] [place], [place] [address] Care Team Providers Care Seasonal Delivery Driver Name Role Phone ELOY AHUMADA PCP Unavailable [...] TAKE 1 TABLET BY MOUTH ONCE DAILY Bentyl 10 mg oral capsule 12/16/2015 take 1 capsule (10 mg) by oral route 3 times per day promethazine-codeine 6.25-10 mg/5 mL oral syrup 12/18/2015 take 5 milliliters by oral route every 4-6 hours as needed, not to exceed 30 mL in 24 hours pantoprazole 40 mg oral tablet,delayed release (DR/EC) 01/16/2016 TAKE 1 TABLET BY MOUTH ONCE DAILY Xanax 0.5 mg oral tablet 03/26/2016 take 1 tablet (0.5 mg) by oral route 3 times per day lisinopril-hydrochlorothiazide 10-12.5 mg oral tablet 03/26/2016 take [...] 30 days Levaquin 500 mg oral tablet 12/15/2015 12/25/2015 [...] HC BMI BSA BMI Percentile O2 Sat(%) 04/02/2016 10:39:00 AM 130 mmHg 80 mmHg [...] Reviewed 01/24/2015 12:00 AM Toradol 60 Mg [facility]#7110-9697-57 Reviewed 03/25/2015 12:00 AM Toradol 60 Mg [facility]#8206-2226-43 Reviewed 04/06/2015 12:00 AM MRI NECK SPINE W/O DYE Reviewed 05/27/2015 12:00 AM Decadron, Per 1 Mg [place]# [address]-37 Reviewed 05/27/2015 12:00 AM Depo-Medrol, Per 80 Mg [facility]#2908-6365-82 Reviewed 05/27/2015 12:00 AM Rocephin 1 gram [facility]#4960-2511-89 Reviewed 02/26/2011 12:00 AM THER/PROPH/DIAG INJ SC/IM Reviewed 02/26/2011 12:00 AM Decadron Inj.1mg-([facility]) [facility] #[id number] Reviewed 02/26/2011 12:00 AM Depo-Medrol 80 Mg Im/[facility] [id number] Reviewed 12/15/2015 12:00 AM Rocephin 1 gram [place]#9743-0443-59 Reviewed 03/11/2012 12:00 AM THER/PROPH/DIAG INJ SC/IM Reviewed 03/11/2012 12:00 AM Decadron, Per 1 Mg [facility]# [address]-24 Reviewed 03/11/2012 12:00 AM Depo-Medrol, Per 80 Mg [facility]#5481-8016-41 Reviewed 03/11/2012 12:00 AM Rocephin 1 gram [place]#0695-9834-15 Reviewed 04/11/2012 12:00 AM Flu Injection 3 Years And Above [facility]# [address]-11 C Reviewed 10/27/2012 12:00 AM THER/PROPH/DIAG INJ SC/IM Reviewed 10/27/2012 12:00 AM Decadron, Per 1 Mg [facility]# [address]-96 Reviewed 10/27/2012 12:00 AM Depo-Medrol, Per 80 Mg [facility]#8035-9611-14 Reviewed 12/26/2012 12:00 AM COMPLETE CBC W/AUTO DIFF WBC Reviewed 12/26/2012 12:00 AM COMPREHEN METABOLIC PANEL Reviewed 12/26/2012 12:00 AM LIPID PANEL Reviewed 12/26/2012 12:00 AM ASSAY THYROID STIM HORMONE Reviewed 08/27/2013 12:00 AM THER/PROPH/DIAG INJ SC/IM Reviewed 08/27/2013 12:00 AM Toradol 60 Mg [facility]#1124-8545-64 Reviewed 12/01/2013 12:00 AM THER/PROPH/DIAG INJ SC/IM Reviewed 12/01/2013 12:00 AM Toradol 60 Mg [facility]#0117-2013-34 Reviewed 07/17/2010 12:00 AM THER/PROPH/DIAG INJ SC/IM Reviewed 07/17/2010 12:00 AM Decadron Inj.6mg-([facility]) [facility] #[id number] Reviewed 07/17/2010 12:00 AM Depo-Medrol 120 Mg Im/[facility] [id number] Reviewed 04/21/2014 12:00 AM IMMUNIZATION ADMIN Reviewed 04/21/2014 12:00 AM THER/PROPH/DIAG INJ SC/IM Reviewed 04/21/2014 12:00 AM Decadron, Per 1 Mg [facility]# [address]-42 Reviewed 04/21/2014 12:00 AM Depo-Medrol, Per 80 Mg [facility]#9946-1491-96 Reviewed 05/14/2014 12:00 AM THER/PROPH/DIAG INJ SC/IM Reviewed 05/14/2014 12:00 AM Decadron, Per 1 Mg [facility]# [address]-55 Reviewed 05/14/2014 12:00 AM Depo-Medrol, Per 80 Mg [facility]#8824-5381-41 Reviewed 07/05/2014 12:00 AM THER/PROPH/DIAG INJ SC/IM Reviewed 07/05/2014 12:00 AM Decadron, Per 1 Mg [facility]# [address]-05 Reviewed 07/05/2014 12:00 AM Rocephin 1 gram [facility]#8129-5554-95 Reviewed Results Summary Data and Description Results [...] breath on exertion Apr 02 2016 10:40AM Payers Insurance Name Company Name Plan Name Plan Number Policy Number Policy Group Number Start Date Medicare Part A Medicare RHC [id number] N/A [employer] [place] [employer] Specialist Prog - RHC [employer] [place] [employer] Specialist Prog - [facility] [id number] N/A Medicare Part A Medicare - Lab/Xray [id number] N/A Medicare Part B Medicare Of [place] [id number] N/A [facility] Medical Assistance Prog [id number] N/A Medicare Part A Medicare Part A [id number] N/A History of Encounters Visit Date Visit Type Provider 04/02/2016 Office visit ELOY BRITT 03/22/2016 [facility] Jhony Phelps MD 03/22/2016 Office visit ELOY AHUMADA PA 12/15/2015 Office visit ELOY AHUMADA PA 10/24/2015 [...]
--- OUTSIDE RECORDS SUMMARY | 2018-01-13 11:30 | XMS REPORT ---
Author Author ELOY AHUMADA [facility] Address [address] [place], [place] [address] Care Team Providers Care Office Messenger Helper Name Role Phone ELOY AHUMADA PCP [...] HC BMI BSA BMI Percentile O2 Sat(%) 10/25/2016 1:11:00 PM 122 mmHg 60 mmHg [...] Reviewed 01/24/2015 12:00 AM Toradol 60 Mg [facility]#1344-9108-58 Reviewed 03/25/2015 12:00 AM Toradol 60 Mg [facility]#5885-3431-16 Reviewed 04/06/2015 12:00 AM MRI NECK SPINE W/O DYE Reviewed 05/27/2015 12:00 AM Decadron, Per 1 Mg [facility]# [address]-43 Reviewed 05/27/2015 12:00 AM Depo-Medrol, Per 80 Mg [facility]#2829-7496-90 Reviewed 05/27/2015 12:00 AM Rocephin 1 gram [facility]#1669-2263-72 Reviewed 02/26/2011 12:00 AM THER/PROPH/DIAG INJ SC/IM Reviewed 02/26/2011 12:00 AM Decadron Inj.1mg-([facility]) [facility] #[id number] Reviewed 02/26/2011 12:00 AM Depo-Medrol 80 Mg Im/[facility] 0009-834189 Reviewed 12/15/2015 12:00 AM Rocephin 1 gram [facility]#2745-7291-07 Reviewed 06/03/2016 12:00 AM THERAPEUTIC PROPHYLACTIC/DX INJECTION [...] 12:00 AM Lasix, Up to 20 Mg [facility]#9004-3498-82 RHC Medicare Reviewed 03/11/2012 12:00 AM THER/PROPH/DIAG INJ SC/IM Reviewed 03/11/2012 12:00 AM Decadron, Per 1 Mg [facility]# [address]-12 Reviewed 03/11/2012 12:00 AM Depo-Medrol, Per 80 Mg [facility]#7532-[address]-45 Reviewed 03/11/2012 12:00 AM Rocephin 1 gram [facility]#7763-0241-82 Reviewed 04/11/2012 12:00 AM Flu Injection 3 Years And Above [facility]# [address]-01 [facility] Reviewed 10/27/2012 12:00 AM THER/PROPH/DIAG INJ SC/IM Reviewed 10/27/2012 12:00 AM Decadron, Per 1 Mg [facility]# [address]-26 Reviewed 10/27/2012 12:00 AM Depo-Medrol, Per 80 Mg [facility]#6077-5827-88 Reviewed 12/26/2012 12:00 AM COMPLETE CBC W/AUTO DIFF WBC Reviewed 12/26/2012 12:00 AM COMPREHEN METABOLIC PANEL Reviewed 12/26/2012 12:00 AM LIPID PANEL Reviewed 12/26/2012 12:00 AM ASSAY THYROID STIM HORMONE Reviewed 08/27/2013 12:00 AM THER/PROPH/DIAG INJ SC/IM Reviewed 08/27/2013 12:00 AM Toradol 60 Mg [facility]#9501-7079-30 Reviewed 12/01/2013 12:00 AM THER/PROPH/DIAG INJ SC/IM Reviewed 12/01/2013 12:00 AM Toradol 60 Mg [facility]#7372-3962-45 Reviewed 07/17/2010 12:00 AM THER/PROPH/DIAG INJ SC/IM Reviewed 07/17/2010 12:00 AM Decadron Inj.6mg-([facility]) [facility] #[id number] Reviewed 07/17/2010 12:00 AM Depo-Medrol 120 Mg Im/[facility] [id number] Reviewed 04/21/2014 12:00 AM IMMUNIZATION ADMIN Reviewed 04/21/2014 12:00 AM THER/PROPH/DIAG INJ SC/IM Reviewed 04/21/2014 12:00 AM Decadron, Per 1 Mg [facility]# [address]-27 Reviewed 04/21/2014 12:00 AM Depo-Medrol, Per 80 Mg [facility]#3720-3622-46 Reviewed 05/14/2014 12:00 AM THER/PROPH/DIAG INJ SC/IM Reviewed 05/14/2014 12:00 AM Decadron, Per 1 Mg [facility]# [address]-94 Reviewed 05/14/2014 12:00 AM Depo-Medrol, Per 80 Mg [facility]#5231-4688-58 Reviewed 07/05/2014 12:00 AM THER/PROPH/DIAG INJ SC/IM Reviewed 07/05/2014 12:00 AM Decadron, Per 1 Mg [facility]# [address]-58 Reviewed 07/05/2014 12:00 AM Rocephin 1 gram [facility]#8500-1579-44 Reviewed Results Summary Date and Description Results [...] renal function finding Oct 25 2016 1:12PM Payers Insurance Name Company Name Plan Name Plan Number Policy Number Policy Group Number Start Date Medicare RHC Medicare RHC [id number] N/A [place] 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 Director 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 [facility] 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 [id number] N/A Medicare Part A Medicare - Lab/Xray [id number] N/A Medicare Part B Medicare Of [place] [id number] N/A [place] Medical Assistance [facility] Medical Assistance Prog [id number] N/A Medicare Part A Medicare Part A [id number] N/A History of Encounters Visit Date Visit Type Provider 10/25/2016 Office visit ELOY BRITT 10/18/2016 Office [...] BRITT 03/22/2016 Hospital Jhony Phelps MD 03/22/2016 [facility] Mukul Lopez MD 12/15/2015 Office visit [...] visit ELOY AHUMADA PA 08/13/2014 Office visit LEOY AHUMADA PA 07/08/2014 Voided ELOY AHUMADA PA 07/05/2014 Office visit 07/05/2014 Office visit ELOY AHUMADA PA 05/14/2014 Office visit 05/14/2014 Office visit ELOY AHUMADA PA 05/11/2014 Office visit ELOY BRITT 04/21/2014 Office [...]
--- OUTSIDE RECORDS SUMMARY | 2018-01-13 11:32 | XMS REPORT ---
Author ELOY Fleming [facility] Address [address] [place], [place] [id number] Care Team Providers Care Reimbursement Coordinator Name Role Phone ELOY AHUMADA PCP Unavailable ELOY AHUMADA PreferredProvider Unavailable Allergies and Adverse Reactions Name Reaction Notes Depo-Medrol Pain, muscle spasms, insomnia Decadron Pain, Muscle spasms, insomnia Plan of Treatment Planned Activity Comments Planned Date Planned Time Plan/Goal BNP 05/15/2016 12:00 AM CMP 10/18/2016 12:00 AM BNP 11/16/2016 12:00 AM cervical pain 06/15/2015 11:00 AM [...] 20 mg oral tablet 11/28/2016 As directed Name Start Date Expiration Date SIG Comments [...] atenolol 25 mg oral tablet 08/27/2013 11/25/2013 1/ BID dicyclomine 10 mg oral capsule 11/12/2013 [...] HC BMI BSA BMI Percentile O2 Sat(%) 11/29/2016 5:18:00 PM 126 mmHg 70 mmHg [...] Reviewed 01/24/2015 12:00 AM Toradol 60 Mg [facility]#2662-8675-87 Reviewed 03/25/2015 12:00 AM Toradol 60 Mg [facility]#7472-4722-33 Reviewed 04/06/2015 12:00 AM MRI NECK SPINE W/O DYE Reviewed 05/27/2015 12:00 AM Decadron, Per 1 Mg [facility]# [address]-28 Reviewed 05/27/2015 12:00 AM Depo-Medrol, Per 80 Mg [facility]#2856-9211-49 Reviewed 05/27/2015 12:00 AM Rocephin 1 gram [facility]#5486-4110-10 Reviewed 02/26/2011 12:00 AM THER/PROPH/DIAG INJ SC/IM Reviewed 02/26/2011 12:00 AM Decadron Inj.1mg-([facility]) [facility] #[id number] Reviewed 02/26/2011 12:00 AM Depo-Medrol 80 Mg Im/[facility] [id number] Reviewed 12/15/2015 12:00 AM Rocephin 1 gram [facility]#1884-7454-80 Reviewed 06/03/2016 12:00 AM THERAPEUTIC PROPHYLACTIC/DX INJECTION [...] 12:00 AM Lasix, Up to 20 Mg [facility]#5011-0735-71 RHC Medicare Reviewed 03/11/2012 12:00 AM THER/PROPH/DIAG INJ SC/IM Reviewed 03/11/2012 12:00 AM Decadron, Per 1 Mg [facility]# [address]-57 Reviewed 03/11/2012 12:00 AM Depo-Medrol, Per 80 Mg [facility]#0685-6219-01 Reviewed 03/11/2012 12:00 AM Rocephin 1 gram [facility]#6354-2804-65 Reviewed 04/11/2012 12:00 AM Flu Injection 3 Years And Above [facility]# [address]-29 [facility] Reviewed 10/27/2012 12:00 AM THER/PROPH/DIAG INJ SC/IM Reviewed 10/27/2012 12:00 AM Decadron, Per 1 Mg [facility]# [address]-72 Reviewed 10/27/2012 12:00 AM Depo-Medrol, Per 80 Mg [facility]#9676-5808-60 Reviewed 12/26/2012 12:00 AM COMPLETE CBC W/AUTO DIFF WBC Reviewed 12/26/2012 12:00 AM COMPREHEN METABOLIC PANEL Reviewed 12/26/2012 12:00 AM LIPID PANEL Reviewed 12/26/2012 12:00 AM ASSAY THYROID STIM HORMONE Reviewed 08/27/2013 12:00 AM THER/PROPH/DIAG INJ SC/IM Reviewed 08/27/2013 12:00 AM Toradol 60 Mg [facility]#4697-7295-77 Reviewed 12/01/2013 12:00 AM THER/PROPH/DIAG INJ SC/IM Reviewed 12/01/2013 12:00 AM Toradol 60 Mg [facility]#6357-0554-26 Reviewed 07/17/2010 12:00 AM THER/PROPH/DIAG INJ SC/IM Reviewed 07/17/2010 12:00 AM Decadron Inj.6mg-([facility]) [facility] #[id number] Reviewed 07/17/2010 12:00 AM Depo-Medrol 120 Mg Im/[facility] [id number] Reviewed 04/21/2014 12:00 AM IMMUNIZATION ADMIN Reviewed 04/21/2014 12:00 AM THER/PROPH/DIAG INJ SC/IM Reviewed 04/21/2014 12:00 AM Decadron, Per 1 Mg [facility]# [address]-37 Reviewed 04/21/2014 12:00 AM Depo-Medrol, Per 80 Mg [facility]#8414-0573-56 Reviewed 05/14/2014 12:00 AM THER/PROPH/DIAG INJ SC/IM Reviewed 05/14/2014 12:00 AM Decadron, Per 1 Mg [facility]# [address]-71 Reviewed 05/14/2014 12:00 AM Depo-Medrol, Per 80 Mg [facility]#3860-8063-98 Reviewed 07/05/2014 12:00 AM THER/PROPH/DIAG INJ SC/IM Reviewed 07/05/2014 12:00 AM Decadron, Per 1 Mg [facility]# [address]-15 Reviewed 07/05/2014 12:00 AM Rocephin 1 gram 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 [place] [employer] Representative Prog - RHC [id number] N/A Medicare Part A Medicare - Lab/Xray [id number] N/A Medicare Part B Medicare Of [place] [id number] N/A [place] [employer] [place] [employer] Prog [id number] N/A Medicare Part A Medicare Part A [id number] N/A History of Encounters Visit Date Visit Type Provider 11/29/2016 Office visit ELOY BRITT 11/16/2016 Office visit ELOY AHUMADA PA 11/01/2016 [...] ELOY AHUMADA PA 05/14/2016 Office visit ELOY BRITT 04/17/2016 Office visit ELOY BRITT 04/02/2016 Office visit ELOY BRITT 03/22/2016 Hospital Jhony Phelps MD 03/22/2016 [facility] Mukul Lopez MD 12/15/2015 Office visit ELOY BRITT 10/24/2015 Office visit ELOY AHUMADA PA 10/11/2015 [...] Eloy Ahumada PA-C 06/20/2009 Office visit Eloy Ahuamda PA-C 02/18/2009 Office visit Eloy Ahumada PA-C
--- OUTSIDE RECORDS SUMMARY | 2018-01-13 11:33 | XMS REPORT ---
Author ELOY Fleming [facility] Address [address] [place], [place] [address] Care Team Providers Care Biosolids Management Technician Name Role Phone ELOY AHUMADA PCP Unavailable [...] Reviewed 01/24/2015 12:00 AM Toradol 60 Mg [facility]#3135-8537-78 Reviewed 03/25/2015 12:00 AM Toradol 60 Mg [facility]#9226-5650-69 Reviewed 04/06/2015 12:00 AM MRI NECK SPINE W/O DYE Reviewed 05/27/2015 12:00 AM Decadron, Per 1 Mg [facility]# [address]-43 Reviewed 05/27/2015 12:00 AM Depo-Medrol, Per 80 Mg [facility]#2897-1150-72 Reviewed 05/27/2015 12:00 AM Rocephin 1 gram [facility]#3945-0390-47 Reviewed 02/26/2011 12:00 AM THER/PROPH/DIAG INJ SC/IM Reviewed 02/26/2011 12:00 AM Decadron Inj.1mg-([facility]) [facility] #[id number] Reviewed 02/26/2011 12:00 AM Depo-Medrol 80 Mg Im/[facility] [id number] Reviewed 12/15/2015 12:00 AM Rocephin 1 gram [facility]#8926-9671-29 Reviewed 06/03/2016 12:00 AM THERAPEUTIC PROPHYLACTIC/DX INJECTION SUBQ/IM Reviewed 06/03/2016 12:00 AM Decadron 8mg Injection, R[facility] Medicare Reviewed 06/27/2016 12:00 AM COMPREHEN METABOLIC PANEL Returned 06/27/2016 12:00 AM URINALYSIS AUTO W/SCOPE Returned 03/11/2012 12:00 AM THER/PROPH/DIAG INJ SC/IM Reviewed 03/11/2012 12:00 AM Decadron, Per 1 Mg [facility]# [address]-37 Reviewed 03/11/2012 12:00 AM Depo-Medrol, Per 80 Mg [facility]#5124-3464-47 Reviewed 03/11/2012 12:00 AM Rocephin 1 gram [facility]#3362-1238-31 Reviewed 04/11/2012 12:00 AM Flu Injection 3 Years And Above [facility]# [address]-36 [facility] Reviewed 10/27/2012 12:00 AM THER/PROPH/DIAG INJ SC/IM Reviewed 10/27/2012 12:00 AM Decadron, Per 1 Mg [facility]# [address]-96 Reviewed 10/27/2012 12:00 AM Depo-Medrol, Per 80 Mg [facility]#3374-5587-05 Reviewed 12/26/2012 12:00 AM COMPLETE CBC W/AUTO DIFF WBC Reviewed 12/26/2012 12:00 AM COMPREHEN METABOLIC PANEL Reviewed 12/26/2012 12:00 AM LIPID PANEL Reviewed 12/26/2012 12:00 AM ASSAY THYROID STIM HORMONE Reviewed 08/27/2013 12:00 AM THER/PROPH/DIAG INJ SC/IM Reviewed 08/27/2013 12:00 AM Toradol 60 Mg [facility]#8983-4132-61 Reviewed 12/01/2013 12:00 AM THER/PROPH/DIAG INJ SC/IM Reviewed 12/01/2013 12:00 AM Toradol 60 Mg [facility]#1121-8171-89 Reviewed 07/17/2010 12:00 AM THER/PROPH/DIAG INJ SC/IM Reviewed 07/17/2010 12:00 AM Decadron Inj.6mg-([facility]) [facility] #[id number] Reviewed 07/17/2010 12:00 AM Depo-Medrol 120 Mg Im/[facility] [id number] Reviewed 04/21/2014 12:00 AM IMMUNIZATION ADMIN Reviewed 04/21/2014 12:00 AM THER/PROPH/DIAG INJ SC/IM Reviewed 04/21/2014 12:00 AM Decadron, Per 1 Mg [facility]# [address]-99 Reviewed 04/21/2014 12:00 AM Depo-Medrol, Per 80 Mg [facility]#6403-5916-01 Reviewed 05/14/2014 12:00 AM THER/PROPH/DIAG INJ SC/IM Reviewed 05/14/2014 12:00 AM Decadron, Per 1 Mg [facility]# [address]-11 Reviewed 05/14/2014 12:00 AM Depo-Medrol, Per 80 Mg [facility]#1810-8343-55 Reviewed 07/05/2014 12:00 AM THER/PROPH/DIAG INJ SC/IM Reviewed 07/05/2014 12:00 AM Decadron, Per 1 Mg [facility]# [address]-2013-31 Reviewed 07/05/2014 12:00 AM Rocephin 1 gram [facility]#3624-7341-58 Reviewed Results Summary Data and Description Results [...] 1:03PM Cough, persistent Aug 15 2016 1:03PM Payers Insurance Name Company Name Plan Name Plan Number Policy Number Policy Group Number Start Date Medicare RHC Medicare RHC [id number] N/A [facility] 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 [facility] Asst Prog - RH [id number] N/A Medicare Part A Medicare - Lab/Xray [id number] N/A Medicare Part B Medicare Of [place] [id number] N/A [place] Medical Assistance Program [facility] [id number] N/A Medicare Part A Medicare Part A [id number] N/A History of Encounters Visit Date Visit Type Provider 08/20/2016 Office visit ELOY AHUMADA PA 08/15/2016 Office visit ELOY AHUMADA PA 08/09/2016 Office visit ELOY AHUMADA PA 07/27/2016 Office visit ELOY AHUMADA PA 07/18/2016 Office visit EOLY AHUMADA PA 07/16/2016 Office visit ELOY AHUMADA PA 07/06/2016 Office visit ELOY AHUMADA PA 06/29/2016 Office visit ELOY AHUMADA PA 06/26/2016 Office visit ELOY AHUMADA PA 06/03/2016 Office visit ELOY AHUMADA PA 05/31/2016 Office visit ELOY AHUMADA PA 05/14/2016 Office visit ELOY AHUMADA PA 04/17/2016 Office visit ELOY AHUMADA PA 04/02/2016 Office visit ELOY BRITT 03/22/2016 Hospital Jhony Phelps MD 03/22/2016 [facility] Mukul Lopez MD 12/15/2015 Office visit [...]
--- OUTSIDE RECORDS SUMMARY | 2018-01-13 11:35 | XMS REPORT ---
Author ELOY Fleming [facility] Address [address] [place], [place] [address] Care Team Providers Care Centrifuge Operator Name Role Phone ELOY AHUMADA PCP [...] HC BMI BSA BMI Percentile O2 Sat(%) 03/12/2017 9:57:00 AM 128 mmHg 80 mmHg [...] rpm 98.4 F 202 lbs 64 in 34.67 kg/m2 2.03 m2 95 % 01/09/2017 2:22:00 PM 128 mmHg 80 mmHg 98 bpm 16 rpm 98.2 F 199 lbs 64 in 34.1579 kg/m 2.0189 m 97 % 01/03/2017 1:27:00 PM 132 mmHg [...] 01/24/2015 12:00 AM Toradol 60 Mg [facility]#6463-2615-48 Reviewed 03/25/2015 12:00 AM Toradol 60 Mg [facility]#1530-4068-16 Reviewed 04/06/2015 12:00 AM MRI NECK SPINE W/O DYE Reviewed 05/27/2015 12:00 AM Decadron, Per 1 Mg [facility]# [address]-61 Reviewed 05/27/2015 12:00 AM Depo-Medrol, Per 80 Mg [facility]#0592-7326-73 Reviewed 05/27/2015 12:00 AM Rocephin 1 gram [facility]#7325-2702-24 Reviewed 02/26/2011 12:00 AM THER/PROPH/DIAG INJ SC/IM Reviewed 02/26/2011 12:00 AM Decadron Inj.1mg-([facility]) [facility] #[id number] Reviewed 02/26/2011 12:00 AM Depo-Medrol 80 Mg Im/[facility] [id number] Reviewed 12/15/2015 12:00 AM Rocephin 1 gram [facility]#6438-7976-04 Reviewed 06/03/2016 12:00 AM THERAPEUTIC PROPHYLACTIC/DX INJECTION SUBQ/IM Reviewed 06/03/2016 12:00 AM Decadron 8mg Injection, [facility] Medicare Reviewed 06/27/2016 12:00 AM COMPREHEN METABOLIC PANEL Returned 06/27/2016 12:00 AM URINALYSIS AUTO W/SCOPE Returned 07/05/2016 12:00 AM COMPREHEN METABOLIC PANEL Reviewed 07/12/2016 12:00 AM COMPREHEN METABOLIC PANEL Reviewed 07/23/2016 12:00 AM COMPREHEN METABOLIC PANEL Reviewed 09/07/2016 12:00 AM THERAPEUTIC PROPHYLACTIC/DX INJECTION SUBQ/IM Reviewed 09/07/2016 12:00 AM Rocephin 1 gram Injection, [facility] Medicare Reviewed 09/03/2016 12:00 AM THERAPEUTIC PROPHYLACTIC/DX INJECTION SUBQ/IM Reviewed 09/03/2016 12:00 AM Rocephin 1 gram Injection, [facility] Medicare Reviewed 10/22/2016 12:00 AM THERAPEUTIC PROPHYLACTIC/DX INJECTION SUBQ/IM Reviewed 10/18/2016 12:00 AM Lasix, Up to 20 Mg [facility]#1146-1262-40 [facility] Medicare Reviewed 11/16/2016 12:00 AM ASSAY OF NATRIURETIC PEPTIDE Reviewed 12/03/2016 12:00 AM THERAPEUTIC PROPHYLACTIC/DX INJECTION SUBQ/IM Reviewed 12/03/2016 12:00 AM Decadron 8mg Injection, [facility] Medicare Reviewed 11/30/2016 12:00 AM THERAPEUTIC PROPHYLACTIC/DX INJECTION SUBQ/IM Reviewed 11/30/2016 12:00 AM Decadron 8mg Injection, [facility] Medicare Reviewed 11/30/2016 12:00 AM Rocephin 1 gram Injection, [facility] Medicare Reviewed 11/30/2016 12:00 AM AIRWAY INHALATION TREATMENT Reviewed 01/09/2017 12:00 AM THERAPEUTIC PROPHYLACTIC/DX INJECTION SUBQ/IM Reviewed 01/09/2017 12:00 AM Decadron 8mg Injection Reviewed 01/28/2017 12:00 AM DRAIN/INJ JOINT/BURSA W/O US Reviewed 02/01/2017 12:00 AM DRAIN/INJ JOINT/BURSA W/O US Reviewed 03/11/2012 12:00 AM THER/PROPH/DIAG INJ SC/IM Reviewed 03/11/2012 12:00 AM Decadron, Per 1 Mg [facility]# [address]-91 Reviewed 03/11/2012 12:00 AM Depo-Medrol, Per 80 Mg [facility]#4354-7983-73 Reviewed 03/11/2012 12:00 AM Rocephin 1 gram [facility]#6351-2613-15 Reviewed 04/11/2012 12:00 AM Flu Injection 3 Years And Above [facility]# [address]-07 [facility] Reviewed 10/27/2012 12:00 AM THER/PROPH/DIAG INJ SC/IM Reviewed 10/27/2012 12:00 AM Decadron, Per 1 Mg [facility]# [address]-63 Reviewed 10/27/2012 12:00 AM Depo-Medrol, Per 80 Mg [facility]#0816-8565-77 Reviewed 12/26/2012 12:00 AM COMPLETE CBC W/AUTO DIFF WBC Reviewed 12/26/2012 12:00 AM COMPREHEN METABOLIC PANEL Reviewed 12/26/2012 12:00 AM LIPID PANEL Reviewed 12/26/2012 12:00 AM ASSAY THYROID STIM HORMONE Reviewed 08/27/2013 12:00 AM THER/PROPH/DIAG INJ SC/IM Reviewed 08/27/2013 12:00 AM Toradol 60 Mg [facility]#9211-0599-78 Reviewed 12/01/2013 12:00 AM THER/PROPH/DIAG INJ SC/IM Reviewed 12/01/2013 12:00 AM Toradol 60 Mg [facility]#4162-8063-66 Reviewed 07/17/2010 12:00 AM THER/PROPH/DIAG INJ SC/IM Reviewed 07/17/2010 12:00 AM Decadron Inj.6mg-([facility]) [facility] #[id number] Reviewed 07/17/2010 12:00 AM Depo-Medrol 120 Mg Im/[facility] 0009-436363 Reviewed 04/21/2014 12:00 AM IMMUNIZATION ADMIN Reviewed 04/21/2014 12:00 AM THER/PROPH/DIAG INJ SC/IM Reviewed 04/21/2014 12:00 AM Decadron, Per 1 Mg [facility]# [address]-40 Reviewed 04/21/2014 12:00 AM Depo-Medrol, Per 80 Mg [facility]#2944-4711-78 Reviewed 05/14/2014 12:00 AM THER/PROPH/DIAG INJ SC/IM Reviewed 05/14/2014 12:00 AM Decadron, Per 1 Mg [facility]# [address]-01 Reviewed 05/14/2014 12:00 AM Depo-Medrol, Per 80 Mg [facility]#5317-9891-98 Reviewed 07/05/2014 12:00 AM THER/PROPH/DIAG INJ SC/IM Reviewed 07/05/2014 12:00 AM Decadron, Per 1 Mg [facility]# [address]-68 Reviewed 07/05/2014 12:00 AM Rocephin 1 gram [facility]#7536-2890-20 Reviewed Results Summary Date and Description Results [...] Other chronic pain Mar 12 2017 11:50AM Payers Insurance Name Company Name Plan Name Plan Number Policy Number Policy Group Number Start Date Medicare RHC Medicare RH [id number] N/A [place] [employer] Occupational The[employer] [facility] - [facility] - [facility] [id number] N/A Medicare Part A Medicare - Lab/Xray [id number] N/A Medicare Part B Medicare Of [place] [id number] N/A [place] Medical Assistance Program [place] [employer] Prog [id number] N/A Medicare Part A Medicare Part A [id number] N/A History of Encounters Visit Date Visit Type Provider 03/12/2017 Office visit ELOY BRITT 02/26/2017 Office visit ELOY BRITT 02/14/2017 Voided ELOY BRITT 02/14/2017 Office visit ELOY BRITT 02/01/2017 Office visit ELOY BRITT 01/28/2017 Office visit ELOY BRITT 01/21/2017 Office visit ELOY BRITT 01/09/2017 Office visit ELOY BRITT 01/03/2017 Office visit ELOY BRITT 12/28/2016 Office visit ELOY BRITT 12/25/2016 Office visit ELOY BRITT 12/17/2016 Office visit ELOY AHUMADA PA 12/10/2016 [...] BRITT 03/22/2016 Hospital Jhony Phelps MD 03/22/2016 [facility] Mukul Lopez MD 12/15/2015 Office visit ELOY [...]
--- OUTSIDE RECORDS SUMMARY | 2018-01-13 11:37 | XMS REPORT ---
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#4091-0520-79 Reviewed 03/25/2015 12:00 AM Toradol [address] [facility]#6772-0382-69 Reviewed 04/06/2015 12:00 AM MRI NECK SPINE W/O DYE Reviewed 05/27/2015 12:00 AM Decadron, Per [address] [facility]# [address]-80 Reviewed 05/27/2015 12:00 AM Depo-Medrol, Per [address] [facility]#4583-2032-79 Reviewed 05/27/2015 12:00 AM Rocephin [address] [facility]#6242-6408-86 Reviewed 02/26/2011 12:00 AM THER/PROPH/DIAG INJ SC/IM Reviewed 02/26/2011 12:00 AM Decadron Inj.1mg-([facility]) [facility] #[id number] Reviewed 02/26/2011 12:00 AM Depo-Medrol 80 Mg Im/[facility] [id number] Reviewed 12/15/2015 12:00 AM Rocephin [address] [facility]#3961-2253-93 Reviewed 03/11/2012 12:00 AM THER/PROPH/DIAG INJ SC/IM Reviewed 03/11/2012 12:00 AM Decadron, Per [address] [facility]# [address]-92 Reviewed 03/11/2012 12:00 AM Depo-Medrol, Per [address] [facility]#0724-4088-03 Reviewed 03/11/2012 12:00 AM Rocephin [address] [facility]#8362-9350-24 Reviewed 04/11/2012 12:00 AM Flu Injection [address] [facility]# [address]-41 RHC Reviewed 10/27/2012 12:00 AM THER/PROPH/DIAG INJ SC/IM Reviewed 10/27/2012 12:00 AM Decadron, Per [address] [facility]# [address]-75 Reviewed 10/27/2012 12:00 AM Depo-Medrol, Per [address] [facility]#9358-9597-48 Reviewed 12/26/2012 12:00 AM COMPLETE CBC W/AUTO DIFF WBC Reviewed 12/26/2012 12:00 AM COMPREHEN METABOLIC PANEL Reviewed 12/26/2012 12:00 AM LIPID PANEL Reviewed 12/26/2012 12:00 AM ASSAY THYROID STIM HORMONE Reviewed 08/27/2013 12:00 AM THER/PROPH/DIAG INJ SC/IM Reviewed 08/27/2013 12:00 AM Toradol [address] [facility]#5105-7054-62 Reviewed 12/01/2013 12:00 AM THER/PROPH/DIAG INJ SC/IM Reviewed 12/01/2013 12:00 AM Toradol [address] [facility]#8231-9903-43 Reviewed 07/17/2010 12:00 AM THER/PROPH/DIAG INJ SC/IM Reviewed 07/17/2010 12:00 AM Decadron Inj.6mg-([facility]) [facility] #[id number] Reviewed 07/17/2010 12:00 AM Depo-Medrol 120 Mg Im/[facility] Ger[facility] [id number] Reviewed 04/21/2014 12:00 AM IMMUNIZATION ADMIN Reviewed 04/21/2014 12:00 AM THER/PROPH/DIAG INJ SC/IM Reviewed 04/21/2014 12:00 AM Decadron, Per [address] [facility]# [address]-95 Reviewed 04/21/2014 12:00 AM Depo-Medrol, Per [address] [facility]#7779-0161-69 Reviewed 05/14/2014 12:00 AM THER/PROPH/DIAG INJ SC/IM Reviewed 05/14/2014 12:00 AM Decadron, Per [address] [facility]# [address]-48 Reviewed 05/14/2014 12:00 AM Depo-Medrol, Per [address] [facility]#5782-0355-39 Reviewed 07/05/2014 12:00 AM THER/PROPH/DIAG INJ SC/IM Reviewed 07/05/2014 12:00 AM Decadron, Per [address] [facility]# [address]-83 Reviewed 07/05/2014 12:00 AM Rocephin [address] [facility]#1694-8457-64 Reviewed Results Summary Data and Description Results [...] COPD mixed type 04/18/2016 Panic attacks 04/18/2016 Irritable Bowel Syndrome Nov 29 2010 10:16AM [...] Congestive heart failure May 15 2016 1:45PM Payers Insurance Name Company Name Plan Name Plan Number Policy Number Policy Group Number Start Date Medicare Part A Medicare RHC [id number] N/A [place] [employer] [facility] [id number] N/A Medicare Part A Medicare - Lab/Xray [id number] N/A Medicare Part B Medicare Of [place] [id number] N/A [place] Medical Assistance [facility]g [id number] N/A Medicare Part A Medicare Part A [id number] N/A History of Encounters Visit Date Visit Type Provider 05/14/2016 Office visit ELOY BRITT 04/17/2016 Office visit ELOY BRITT 04/02/2016 Office visit ELOY BRITT 03/22/2016 [facility] Jhony Phelps MD 12/15/2015 Office visit ELOY AHUMADA PA [...]
--- OUTSIDE RECORDS SUMMARY | 2018-01-13 11:38 | XMS REPORT ---
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 Role Phone ELOY AHUMADA PCP Unavailable [...] oral route every 6 hours as needed oxybutynin chloride 5 mg oral tablet 06/17/2015 09/15/2015 take 1 tablet (5 mg ) by oral route 2 times per day for 30 days lisinopril-hydrochlorothiazide 10-12.5 mg oral tablet 07/05/2015 09/03/2015 take 1 tablet by oral route once [...] HC BMI BSA BMI Percentile O2 Sat(%) 07/05/2015 1:17:00 PM 160 mmHg 88 mmHg [...] 12:00 AM Toradol 60 Mg [facility]#8621-3406-86 Reviewed 03/25/2015 12:00 AM Toradol 60 Mg [facility]#3939-5587-99 Reviewed 04/06/2015 12:00 AM MRI NECK SPINE W/O DYE Returned 05/27/2015 12:00 AM Decadron, Per 1 Mg [facility]# [address]-97 Reviewed 05/27/2015 12:00 AM Depo-Medrol, Per 80 Mg [facility]#6132-2785-44 Reviewed 05/27/2015 12:00 AM Rocephin 1 gram [facility]#8382-5414-47 Reviewed 02/26/2011 12:00 AM THER/PROPH/DIAG INJ SC/IM Reviewed 02/26/2011 12:00 AM Decadron Inj.1mg-([facility]) [facility] #[id number] Reviewed 02/26/2011 12:00 AM Depo-Medrol 80 Mg Im/[facility] [id number] Reviewed 03/11/2012 12:00 AM THER/PROPH/DIAG INJ SC/IM Reviewed 03/11/2012 12:00 AM Decadron, Per 1 Mg [facility]# [address]-02 Reviewed 03/11/2012 12:00 AM Depo-Medrol, Per 80 Mg [facility]#4591-5818-90 Reviewed 03/11/2012 12:00 AM Rocephin 1 gram [facility]#0943-6043-55 Reviewed 04/11/2012 12:00 AM Flu Injection 3 Years And Above [facility]# [address]-02 [facility] Reviewed 10/27/2012 12:00 AM THER/PROPH/DIAG INJ SC/IM Reviewed 10/27/2012 12:00 AM Decadron, Per 1 Mg [facility]# [address]-47 Reviewed 10/27/2012 12:00 AM Depo-Medrol, Per 80 Mg [facility]#9231-8391-18 Reviewed 12/26/2012 12:00 AM COMPLETE CBC W/AUTO DIFF WBC Reviewed 12/26/2012 12:00 AM COMPREHEN METABOLIC PANEL Reviewed 12/26/2012 12:00 AM LIPID PANEL Reviewed 12/26/2012 12:00 AM ASSAY THYROID STIM HORMONE Reviewed 08/27/2013 12:00 AM THER/PROPH/DIAG INJ SC/IM Reviewed 08/27/2013 12:00 AM Toradol 60 Mg [facility]#0909-7851-64 Reviewed 12/01/2013 12:00 AM THER/PROPH/DIAG INJ SC/IM Reviewed 12/01/2013 12:00 AM Toradol 60 Mg [facility]#1555-6866-67 Reviewed 07/17/2010 12:00 AM THER/PROPH/DIAG INJ SC/IM Reviewed 07/17/2010 12:00 AM Decadron Inj.6mg-([facility]) [facility] #[id number] Reviewed 07/17/2010 12:00 AM Depo-Medrol 120 Mg Im/[facility] [id number] Reviewed 04/21/2014 12:00 AM IMMUNIZATION ADMIN Reviewed 04/21/2014 12:00 AM THER/PROPH/DIAG INJ SC/IM Reviewed 04/21/2014 12:00 AM Decadron, Per 1 Mg [facility]# [address]-03 Reviewed 04/21/2014 12:00 AM Depo-Medrol, Per 80 Mg [facility]#0697-0026-47 Reviewed 05/14/2014 12:00 AM THER/PROPH/DIAG INJ SC/IM Reviewed 05/14/2014 12:00 AM Decadron, Per 1 Mg [facility]# [address]-94 Reviewed 05/14/2014 12:00 AM Depo-Medrol, Per 80 Mg [facility]#1078-5566-11 Reviewed 07/05/2014 12:00 AM THER/PROPH/DIAG INJ SC/IM Reviewed 07/05/2014 12:00 AM Decadron, Per 1 Mg [facility]# [address]-52 Reviewed 07/05/2014 12:00 AM Rocephin 1 gram [facility]#6062-6298-97 Reviewed Results Summary Data and Description Results [...] Anxiety about health Jul 05 2015 1:18PM Payers Insurance Name Company Name Plan Name Plan Number Policy Number Policy Group Number Start Date Medicare Part A Medicare Part A [id number] N/A [place] 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
--- OUTSIDE RECORDS SUMMARY | 2018-01-13 11:39 | XMS REPORT ---
Author ELOY Fleming [facility] Address [address] [facility] [address] [place], [place] [address] Care Team Providers Care Pharmacy Technologist Name Role Phone ELOY AHUAMDA PCP Unavailable ELOY AHUMADA PreferredProvider Unavailable Allergies [...] 07/30/2016 Tremor of both hands Active 08/03/2016 Vital Signs Date Time BP-Sys(mm[Hg] BP-Zaynab(mm[Hg]) HR(bpm) RR(rpm) Temp WT HT HC BMI BSA BMI Percentile O2 Sat(%) 08/09/2016 12:06:00 PM 116 mmHg 70 mmHg [...] AM Toradol 60 Mg [facility]#5251-9636-02 Reviewed 03/25/2015 12:00 AM Toradol 60 Mg [facility]#8505-1713-45 Reviewed 04/06/2015 12:00 AM MRI NECK SPINE W/O DYE Reviewed 05/27/2015 12:00 AM Decadron, Per 1 Mg [facility]# [address]-05 Reviewed 05/27/2015 12:00 AM Depo-Medrol, Per 80 Mg [facility]#8728-0151-97 Reviewed 05/27/2015 12:00 AM Rocephin 1 gram [facility]#4092-1445-00 Reviewed 02/26/2011 12:00 AM THER/PROPH/DIAG INJ SC/IM Reviewed 02/26/2011 12:00 AM Decadron Inj.1mg-([facility]) [facility] #[id number] Reviewed 02/26/2011 12:00 AM Depo-Medrol 80 Mg Im/[facility] [id number] Reviewed 12/15/2015 12:00 AM Rocephin 1 gram [facility]#1410-7702-24 Reviewed 06/03/2016 12:00 AM THERAPEUTIC PROPHYLACTIC/DX INJECTION SUBQ/IM Reviewed 06/03/2016 12:00 AM Decadron 8mg Injection, [facility] Medicare Reviewed 06/27/2016 12:00 AM COMPREHEN METABOLIC PANEL Returned 06/27/2016 12:00 AM URINALYSIS AUTO W/SCOPE Returned 03/11/2012 12:00 AM THER/PROPH/DIAG INJ SC/IM Reviewed 03/11/2012 12:00 AM Decadron, Per 1 Mg [facility]# [address]-94 Reviewed 03/11/2012 12:00 AM Depo-Medrol, Per 80 Mg [facility]#8309-5373-05 Reviewed 03/11/2012 12:00 AM Rocephin 1 gram [facility]#7826-4185-56 Reviewed 04/11/2012 12:00 AM Flu Injection 3 Years And Above [facility]# [address]-22 [facility] Reviewed 10/27/2012 12:00 AM THER/PROPH/DIAG INJ SC/IM Reviewed 10/27/2012 12:00 AM Decadron, Per 1 Mg [facility]# [address]-46 Reviewed 10/27/2012 12:00 AM Depo-Medrol, Per 80 Mg [facility]#2638-9543-74 Reviewed 12/26/2012 12:00 AM COMPLETE CBC W/AUTO DIFF WBC Reviewed 12/26/2012 12:00 AM COMPREHEN METABOLIC PANEL Reviewed 12/26/2012 12:00 AM LIPID PANEL Reviewed 12/26/2012 12:00 AM ASSAY THYROID STIM HORMONE Reviewed 08/27/2013 12:00 AM THER/PROPH/DIAG INJ SC/IM Reviewed 08/27/2013 12:00 AM Toradol 60 Mg [facility]#1698-5789-98 Reviewed 12/01/2013 12:00 AM THER/PROPH/DIAG INJ SC/IM Reviewed 12/01/2013 12:00 AM Toradol 60 Mg [facility]#6685-6935-34 Reviewed 07/17/2010 12:00 AM THER/PROPH/DIAG INJ SC/IM Reviewed 07/17/2010 12:00 AM Decadron Inj.6mg-([facility]) [facility] #[id number] Reviewed 07/17/2010 12:00 AM Depo-Medrol 120 Mg Im/[facility] 0009-994663 Reviewed 04/21/2014 12:00 AM IMMUNIZATION ADMIN Reviewed 04/21/2014 12:00 AM THER/PROPH/DIAG INJ SC/IM Reviewed 04/21/2014 12:00 AM Decadron, Per 1 Mg [facility] [place]# [address]-74 Reviewed 04/21/2014 12:00 AM Depo-Medrol, Per 80 Mg [facility]#5122-5099-51 Reviewed 05/14/2014 12:00 AM THER/PROPH/DIAG INJ SC/IM Reviewed 05/14/2014 12:00 AM Decadron, Per 1 Mg [facility]# [address]-79 Reviewed 05/14/2014 12:00 AM Depo-Medrol, Per 80 Mg [facility]#4178-4908-66 Reviewed 07/05/2014 12:00 AM THER/PROPH/DIAG INJ SC/IM Reviewed 07/05/2014 12:00 AM Decadron, Per 1 Mg [facility]# [address]-37 Reviewed 07/05/2014 12:00 AM Rocephin 1 gram [facility]#5607-8908-73 Reviewed Results Summary Data and Description Results [...] worthlessness 07/30/2016 Tremor of both hands 08/03/2016 Irritable Bowel Syndrome Nov 29 2010 10:16AM [...] 26 2016 4:40PM Dependence on supplemental oxygen b [...] diseases classified elsewhere Aug 09 2016 12:06PM Payers Insurance Name Company Name Plan Name Plan Number Policy Number Policy Group Number Start Date Medicare RHC Medicare RHC [id number] N/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 - RH [id number] N/A Medicare Part A Medicare - Lab/Xray [id number] N/A Medicare Part B Medicare Of [place] [id number] N/A [place] Medical Assistance [facility] Medical Assistance Prog [id number] N/A Medicare Part A Medicare Part A [id number] N/A History of Encounters Visit Date Visit Type Provider 08/09/2016 Office visit ELOY BRITT 07/27/2016 Office visit ELOY BRITT 07/18/2016 Office visit ELOY BRITT 07/16/2016 Office visit ELOY BRITT 07/06/2016 Office visit ELOY BRITT 06/29/2016 Office visit ELOY BRITT 06/26/2016 Office visit ELOY BRITT 06/03/2016 Office visit ELOY BRITT 05/31/2016 Office visit ELOY BRITT 05/14/2016 Office visit ELOY BRITT 04/17/2016 Office visit ELOY BRITT 04/02/2016 Office visit ELOY BRITT 03/22/2016 [facility] Jhony Phelps MD 03/22/2016 [facility] Mukul Lopez MD 12/15/2015 Office visit [...] ELOY AHUMADA PA 04/11/2012 Office visit ELOY AHUMDAA PA 03/11/2012 Office visit ELOY AHUMADA PA [...]
--- OUTSIDE RECORDS SUMMARY | 2018-01-13 11:41 | XMS REPORT ---
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 Requirements Worker Name Role Phone ELOY AHUMADA PCP Unavailable ELOY AHUMADA PreferredProvider Unavailable Allergies and Adverse Reactions Name Reaction Notes Depo-Medrol Pain, muscle spasms, insomnia Decadron Pain, Muscle spasms, insomnia Plan of Treatment Planned Activity Comments Planned Date Planned Time Plan/Goal BNP 05/15/2016 12:00 AM CMP 10/18/2016 12:00 AM Aerosol Tx 11/30/2016 12:00 AM [...] 4 times a day for 10 days Levaquin 750 mg oral tablet 11/30/2016 12/07/2016 take 1 tablet (750 mg) by oral route once daily for 7 days Discontinued Name Start Date [...] HC BMI BSA BMI Percentile O2 Sat(%) 01/03/2017 1:27:00 PM 132 mmHg 78 mmHg 84 bpm 16 rpm 98.3 F 197 lbs 98 % 12/28/2016 9:51:00 AM 128 mmHg 71 mmHg 82 bpm 19 rpm 97.3 F 196 lbs 64 in 33.643 kg/m 2.0036 m 96 % 12/25/2016 3:42:00 PM 128 mmHg 82 mmHg 92 bpm 16 rpm 98.2 F 196 lbs 98 % 12/05/2016 2:21:00 PM 118 mmHg 74 [...] Reviewed 01/24/2015 12:00 AM Toradol 60 Mg [facility]#6960-8631-01 Reviewed 03/25/2015 12:00 AM Toradol 60 Mg [facility]#7146-0077-23 Reviewed 04/06/2015 12:00 AM MRI NECK SPINE W/O DYE Reviewed 05/27/2015 12:00 AM Decadron, Per 1 Mg [facility]# [address]-12 Reviewed 05/27/2015 12:00 AM Depo-Medrol, Per 80 Mg [facility]#3747-9097-18 Reviewed 05/27/2015 12:00 AM Rocephin 1 gram [facility]#1666-5092-77 Reviewed 02/26/2011 12:00 AM THER/PROPH/DIAG INJ SC/IM Reviewed 02/26/2011 12:00 AM Decadron Inj.1mg-([facility]) [facility] #[id number] Reviewed 02/26/2011 12:00 AM Depo-Medrol 80 Mg Im/[facility] [id number] Reviewed 12/15/2015 12:00 AM Rocephin 1 gram [facility]#8956-7745-59 Reviewed 06/03/2016 12:00 AM THERAPEUTIC PROPHYLACTIC/DX INJECTION [...] 12:00 AM Lasix, Up to 20 Mg [facility]#9795-0217-52 [facility] Medicare Reviewed 11/16/2016 12:00 AM ASSAY [...] 03/11/2012 12:00 AM Decadron, Per 1 Mg [facility]# [address]-21 Reviewed 03/11/2012 12:00 AM Depo-Medrol, Per 80 Mg [facility]#0479-8960-78 Reviewed 03/11/2012 12:00 AM Rocephin 1 gram [facility]#4247-1880-73 Reviewed 04/11/2012 12:00 AM Flu Injection 3 Years And Above [facility]# [address]-82 [facility] Reviewed 10/27/2012 12:00 AM THER/PROPH/DIAG INJ SC/IM Reviewed 10/27/2012 12:00 AM Decadron, Per 1 Mg [facility]# [address]-45 Reviewed 10/27/2012 12:00 AM Depo-Medrol, Per 80 Mg [facility]#9840-9788-43 Reviewed 12/26/2012 12:00 AM COMPLETE CBC W/AUTO DIFF WBC Reviewed 12/26/2012 12:00 AM COMPREHEN METABOLIC PANEL Reviewed 12/26/2012 12:00 AM LIPID PANEL Reviewed 12/26/2012 12:00 AM ASSAY THYROID STIM HORMONE Reviewed 08/27/2013 12:00 AM THER/PROPH/DIAG INJ SC/IM Reviewed 08/27/2013 12:00 AM Toradol 60 Mg [facility]#8045-6199-59 Reviewed 12/01/2013 12:00 AM THER/PROPH/DIAG INJ SC/IM Reviewed 12/01/2013 12:00 AM Toradol 60 Mg [facility]#0656-2311-17 Reviewed 07/17/2010 12:00 AM THER/PROPH/DIAG INJ SC/IM Reviewed 07/17/2010 12:00 AM Decadron Inj.6mg-([facility]) [facility] #[id number] Reviewed 07/17/2010 12:00 AM Depo-Medrol 120 Mg Im/[facility] [id number] Reviewed 04/21/2014 12:00 AM IMMUNIZATION ADMIN Reviewed 04/21/2014 12:00 AM THER/PROPH/DIAG INJ SC/IM Reviewed 04/21/2014 12:00 AM Decadron, Per 1 Mg [facility]# [address]-87 Reviewed 04/21/2014 12:00 AM Depo-Medrol, Per 80 Mg [facility]#2909-2309-23 Reviewed 05/14/2014 12:00 AM THER/PROPH/DIAG INJ SC/IM Reviewed 05/14/2014 12:00 AM Decadron, Per 1 Mg [facility]# [address]-43 Reviewed 05/14/2014 12:00 AM Depo-Medrol, Per 80 Mg [facility]#8796-4259-10 Reviewed 07/05/2014 12:00 AM THER/PROPH/DIAG INJ SC/IM Reviewed 07/05/2014 12:00 AM Decadron, Per 1 Mg [facility]# [address]-86 Reviewed 07/05/2014 12:00 AM Rocephin 1 gram [facility]#6839-4409-48 Reviewed Results Summary Date and Description Results [...] breath on exertion Jan 03 2017 1:28PM Payers Insurance Name Company Name Plan Name Plan Number Policy Number Policy Group Number Start Date Medicare RHC Medicare RHC [id number] N/A [place] 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 [place] 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 [id number] N/A Medicare Part A Medicare - Lab/Xray [id number] N/A Medicare Part B Medicare Of [place] [id number] N/A [place] Medical Assistance Program [place] Medical Assistance Prog [id number] N/A Medicare Part A Medicare Part A [id number] N/A History of Encounters Visit Date Visit Type Provider 01/03/2017 Office visit ELOY BRITT 12/28/2016 Office visit ELOY BRITT 12/25/2016 Office visit ELOY BRITT 12/17/2016 Office visit ELYO BRITT 12/05/2016 Office visit ELOY BRITT 12/03/2016 [...] ELOY AHUMADA PA 08/20/2016 Office visit ELOY AHUMAAD PA 08/15/2016 Office visit ELOY AHUMADA PA 08/09/2016 Office visit ELOY AHUMADA PA 07/27/2016 Office visit ELOY AHUMADA PA 07/18/2016 Office visit ELOY AHUMADA PA 07/16/2016 Office visit ELOY AHUMADA PA 07/06/2016 Office visit ELYO AUHMADA PA 06/29/2016 Office visit ELOY AHUMADA PA 06/26/2016 Office visit ELOY AHUMADA PA 06/03/2016 Office visit ELOY AHUMADA PA 05/31/2016 Office visit ELOY AHUMADA PA 05/14/2016 Office visit ELOY BRITT 04/17/2016 Office visit ELOY AHUMADA PA 04/02/2016 Office visit ELOY BRITT 03/22/2016 Hospital Jhony Phelps MD 03/22/2016 [facility] Mukul Lopez MD 12/15/2015 Office visit [...] ELOY AHUMADA PA 06/01/2013 Office visit ELOY AHUMDAA PA 03/06/2013 Office visit ELOY AHUMADA PA [...]
[2018-01-13 11:42] LABS: BASOPHILS # (AUTO) 0.1 10^3/uL (0.0-0.1); BASOPHILS % (AUTO) 1 % (0-10); EOSINOPHILS # (AUTO) 0.2 10^3/uL (0.0-0.3); EOSINOPHILS % (AUTO) 2 % (0-10); HEMATOCRIT 39 % (35-52); HEMOGLOBIN 11.9 G/DL (11.5-16.0); LYMPHOCYTES # (AUTO) 1.8 X 10^3 (1.0-4.0); LYMPHOCYTES % (AUTO) 15 % (12-44); MEAN CORPUSCULAR HEMOGLOBIN 27 PG (25-34); MEAN CORPUSCULAR HGB CONC 31 G/DL (32-36); MEAN CORPUSCULAR VOLUME 88 FL (80-99); MEAN PLATELET VOLUME 10.7 FL (7.4-10.4); MONOCYTES # (AUTO) 0.9 X 10^3 (0.0-1.0); MONOCYTES % (AUTO) 8 % (0-12); NEUTROPHILS # (AUTO) 8.7 X 10^3 (1.8-7.8); NEUTROPHILS % (AUTO) 75 % (42-75); PLATELET COUNT 365 10^3/uL (130-400); RED BLOOD COUNT 4.43 10^6/uL (4.35-5.85); RED CELL DISTRIBUTION WIDTH 15.9 % (10.0-14.5); WHITE BLOOD COUNT 11.6 10^3/uL (4.3-11.0)
--- OUTSIDE RECORDS SUMMARY | 2018-01-13 11:43 | XMS REPORT ---
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 Name Role Phone ELOY AHUMADA PCP Unavailable [...] oral route 3 times per day Levaquin 750 mg oral tablet 01/09/2017 take 1 tablet (750 mg) by oral [...] HC BMI BSA BMI Percentile O2 Sat(%) 01/28/2017 1:01:00 PM 132 mmHg 70 mmHg [...] Reviewed 01/24/2015 12:00 AM Toradol 60 Mg [facility]#6750-6830-69 Reviewed 03/25/2015 12:00 AM Toradol 60 Mg [facility]#8222-2937-30 Reviewed 04/06/2015 12:00 AM MRI NECK SPINE W/O DYE Reviewed 05/27/2015 12:00 AM Decadron, Per 1 Mg [facility]# [address]-00 Reviewed 05/27/2015 12:00 AM Depo-Medrol, Per 80 Mg [facility]#7990-2114-66 Reviewed 05/27/2015 12:00 AM Rocephin 1 gram [facility]#2024-4936-70 Reviewed 02/26/2011 12:00 AM THER/PROPH/DIAG INJ SC/IM Reviewed 02/26/2011 12:00 AM Decadron Inj.1mg-([facility]) [facility] #[id number] Reviewed 02/26/2011 12:00 AM Depo-Medrol 80 Mg Im/[facility] 0009-867234 Reviewed 12/15/2015 12:00 AM Rocephin 1 gram [facility]#9465-8391-14 Reviewed 06/03/2016 12:00 AM THERAPEUTIC PROPHYLACTIC/DX INJECTION SUBQ/IM Reviewed 06/03/2016 12:00 AM Decadron 8mg Injection, [facility] Medicare Reviewed 06/27/2016 12:00 AM COMPREHEN METABOLIC PANEL Returned 06/27/2016 12:00 AM URINALYSIS AUTO W/SCOPE Returned 07/05/2016 12:00 AM COMPREHEN METABOLIC PANEL Reviewed 07/12/2016 12:00 AM COMPREHEN METABOLIC PANEL Reviewed 07/23/2016 12:00 AM COMPREHEN METABOLIC PANEL Reviewed 09/07/2016 12:00 AM THERAPEUTIC PROPHYLACTIC/DX INJECTION SUBQ/IM Reviewed 09/07/2016 12:00 AM Rocephin 1 gram Injection, [facility] Medicare Reviewed 09/03/2016 12:00 AM THERAPEUTIC PROPHYLACTIC/DX INJECTION SUBQ/IM Reviewed 09/03/2016 12:00 AM Rocephin 1 gram Injection, [facility] Medicare Reviewed 10/22/2016 12:00 AM THERAPEUTIC PROPHYLACTIC/DX INJECTION SUBQ/IM Reviewed 10/18/2016 12:00 AM Lasix, Up to 20 Mg [facility]#3646-4447-29 [facility] Medicare Reviewed 11/16/2016 12:00 AM ASSAY OF NATRIURETIC PEPTIDE Reviewed 12/03/2016 12:00 AM THERAPEUTIC PROPHYLACTIC/DX INJECTION SUBQ/IM Reviewed 12/03/2016 12:00 AM Decadron 8mg Injection, [facility] Medicare Reviewed 11/30/2016 12:00 AM THERAPEUTIC PROPHYLACTIC/DX INJECTION SUBQ/IM Reviewed 11/30/2016 12:00 AM Decadron 8mg Injection, [facility] Medicare Reviewed 11/30/2016 12:00 AM Rocephin 1 gram Injection, [facility] Medicare Reviewed 01/09/2017 12:00 AM THERAPEUTIC PROPHYLACTIC/DX INJECTION SUBQ/IM Reviewed 01/09/2017 12:00 AM Decadron 8mg Injection Reviewed 03/11/2012 12:00 AM THER/PROPH/DIAG INJ SC/IM Reviewed 03/11/2012 12:00 AM Decadron, Per 1 Mg [facility]# [address]-52 Reviewed 03/11/2012 12:00 AM Depo-Medrol, Per 80 Mg [facility]#9084-5918-95 Reviewed 03/11/2012 12:00 AM Rocephin 1 gram [facility]#1107-9404-79 Reviewed 04/11/2012 12:00 AM Flu Injection 3 Years And Above [facility]# [address]-24 [facility] Reviewed 10/27/2012 12:00 AM THER/PROPH/DIAG INJ SC/IM Reviewed 10/27/2012 12:00 AM Decadron, Per 1 Mg [facility]# [address]-71 Reviewed 10/27/2012 12:00 AM Depo-Medrol, Per 80 Mg [facility]#7458-4280-72 Reviewed 12/26/2012 12:00 AM COMPLETE CBC W/AUTO DIFF WBC Reviewed 12/26/2012 12:00 AM COMPREHEN METABOLIC PANEL Reviewed 12/26/2012 12:00 AM LIPID PANEL Reviewed 12/26/2012 12:00 AM ASSAY THYROID STIM HORMONE Reviewed 08/27/2013 12:00 AM THER/PROPH/DIAG INJ SC/IM Reviewed 08/27/2013 12:00 AM Toradol 60 Mg [facility]#5869-6756-38 Reviewed 12/01/2013 12:00 AM THER/PROPH/DIAG INJ SC/IM Reviewed 12/01/2013 12:00 AM Toradol 60 Mg [facility]#3028-5852-25 Reviewed 07/17/2010 12:00 AM THER/PROPH/DIAG INJ SC/IM Reviewed 07/17/2010 12:00 AM Decadron Inj.6mg-([facility]) [facility] #[id number] Reviewed 07/17/2010 12:00 AM Depo-Medrol 120 Mg Im/[facility] [id number] Reviewed 04/21/2014 12:00 AM IMMUNIZATION ADMIN Reviewed 04/21/2014 12:00 AM THER/PROPH/DIAG INJ SC/IM Reviewed 04/21/2014 12:00 AM Decadron, Per 1 Mg [facility]# [address]-90 Reviewed 04/21/2014 12:00 AM Depo-Medrol, Per 80 Mg [facility]#2625-4662-28 Reviewed 05/14/2014 12:00 AM THER/PROPH/DIAG INJ SC/IM Reviewed 05/14/2014 12:00 AM Decadron, Per 1 Mg [facility]# [address]-17 Reviewed 05/14/2014 12:00 AM Depo-Medrol, Per 80 Mg [facility]#0122-[address]-01 Reviewed 07/05/2014 12:00 AM THER/PROPH/DIAG INJ SC/IM Reviewed 07/05/2014 12:00 AM Decadron, Per 1 Mg [facility]# [address]-06 Reviewed 07/05/2014 12:00 AM Rocephin 1 gram [facility]#8782-5098-35 Reviewed Results Summary Date and Description Results [...] years Jun 29 2016 11:22AM Panic attacks b 2016 11:22AM [...] cuff tendinitis, right Jan 29 2017 7:02AM Payers Insurance Name Company Name Plan Name Plan Number Policy Number Policy Group Number Start Date Medicare RHC Medicare RHC [id number] N/A [place] 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 - RHC [place] 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 - RHC [id number] N/A Medicare Part A Medicare - Lab/Xray [id number] N/A Medicare Part B Medicare Of [place] [id number] N/A [place] Medical Assistance [facility] Medical Assistance Prog [id number] N/A Medicare Part A Medicare Part A [id number] N/A History of Encounters Visit Date Visit Type Provider 01/28/2017 Office visit ELOY BRITT 01/21/2017 Office visit ELOY BRITT 01/09/2017 Office visit ELOY BRITT 01/03/2017 Office visit ELOY BRITT 12/28/2016 Office visit ELOY BRITT 12/25/2016 Office visit ELOY BRITT 12/17/2016 Office visit ELOY BRITT 12/05/2016 Office visit ELOY BRITT 12/03/2016 Office visit ELOY BRITT 11/30/2016 Office visit ELOY AHUMADA PA 11/29/2016 [...] PA 03/22/2016 Hospital Jhony Phelps MD 03/22/2016 [facility] Mukul [...]
[2018-01-13 11:45] LABS: BILIRUBIN,URINE NEGATIVE (NEGATIVE); CLARITY,URINE CLEAR; COLOR,URINE YELLOW; GLUCOSE, URINE (UA) NEGATIVE (NEGATIVE); KETONES,URINE NEGATIVE (NEGATIVE); LEUKOCYTE ESTERASE ,URINE NEGATIVE (NEGATIVE); NITRITE,URINE NEGATIVE (NEGATIVE); PH,URINE 8 (5-9); PROTEIN,URINE NEGATIVE (NEGATIVE); UROBILINOGEN,URINE NORMAL (NORMAL)
[2018-01-13] MEDS ORDERED: fentaNYL INJECTION 100 MCG/2 ML AMP IVP ONE (11:45)
[2018-01-13] MEDS ORDERED: NS IV 1000 ML 1,000 ML IV SCH (11:45)
--- OUTSIDE RECORDS SUMMARY | 2018-01-13 11:45 | XMS REPORT ---
Author ELOY Fleming [facility] Address [address] [place], [place] [address] Care Team Providers Care Flotation Operator Name Role Phone ELOY AHUMADA PCP [...] oral route 3 times per day lisinopril-hydrochlorothiazide 02-14.5 mg oral tablet 03/26/2016 take 1 tablet [...] mg oral tablet 06/29/2016 daily as directed Name Start Date Expiration Date SIG [...] HC BMI BSA BMI Percentile O2 Sat(%) 06/29/2016 11:21:00 AM 130 mmHg 80 mmHg [...] Reviewed 01/24/2015 12:00 AM Toradol 60 Mg [facility]#8844-5681-70 Reviewed 03/25/2015 12:00 AM Toradol 60 Mg [facility]#8909-6836-78 Reviewed 04/06/2015 12:00 AM MRI NECK SPINE W/O DYE Reviewed 05/27/2015 12:00 AM Decadron, Per 1 Mg [facility]# [address]-96 Reviewed 05/27/2015 12:00 AM Depo-Medrol, Per 80 Mg [facility]#8753-4344-50 Reviewed 05/27/2015 12:00 AM Rocephin 1 gram [facility]#4606-7996-13 Reviewed 02/26/2011 12:00 AM THER/PROPH/DIAG INJ SC/IM Reviewed 02/26/2011 12:00 AM Decadron Inj.1mg-([facility]) [facility] #[id number] Reviewed 02/26/2011 12:00 AM Depo-Medrol 80 Mg Im/[facility] [id number] Reviewed 12/15/2015 12:00 AM Rocephin 1 gram [facility]#2709-8410-60 Reviewed 06/03/2016 12:00 AM THERAPEUTIC PROPHYLACTIC/DX INJECTION SUBQ/IM Reviewed 06/03/2016 12:00 AM Decadron 8mg Injection, [facility] Medicare Reviewed 06/27/2016 12:00 AM COMPREHEN METABOLIC PANEL Returned 06/27/2016 12:00 AM URINALYSIS AUTO W/SCOPE Returned 03/11/2012 12:00 AM THER/PROPH/DIAG INJ SC/IM Reviewed 03/11/2012 12:00 AM Decadron, Per 1 Mg [facility]# [address]-13 Reviewed 03/11/2012 12:00 AM Depo-Medrol, Per 80 Mg [facility]#1609-8871-54 Reviewed 03/11/2012 12:00 AM Rocephin 1 gram [facility]#6967-8812-73 Reviewed 04/11/2012 12:00 AM Flu Injection 3 Years And Above [facility]# [address]-32 [facility] Reviewed 10/27/2012 12:00 AM THER/PROPH/DIAG INJ SC/IM Reviewed 10/27/2012 12:00 AM Decadron, Per 1 Mg [facility]# [address]-19 Reviewed 10/27/2012 12:00 AM Depo-Medrol, Per 80 Mg [facility]#2924-2998-79 Reviewed 12/26/2012 12:00 AM COMPLETE CBC W/AUTO DIFF WBC Reviewed 12/26/2012 12:00 AM COMPREHEN METABOLIC PANEL Reviewed 12/26/2012 12:00 AM LIPID PANEL Reviewed 12/26/2012 12:00 AM ASSAY THYROID STIM HORMONE Reviewed 08/27/2013 12:00 AM THER/PROPH/DIAG INJ SC/IM Reviewed 08/27/2013 12:00 AM Toradol 60 Mg [facility]#1906-4396-30 Reviewed 12/01/2013 12:00 AM THER/PROPH/DIAG INJ SC/IM Reviewed 12/01/2013 12:00 AM Toradol 60 Mg [facility]#3666-3513-77 Reviewed 07/17/2010 12:00 AM THER/PROPH/DIAG INJ SC/IM Reviewed 07/17/2010 12:00 AM Decadron Inj.6mg-([facility]) [facility] #[id number] Reviewed 07/17/2010 12:00 AM Depo-Medrol 120 Mg Im/[facility] [id number] Reviewed 04/21/2014 12:00 AM IMMUNIZATION ADMIN Reviewed 04/21/2014 12:00 AM THER/PROPH/DIAG INJ SC/IM Reviewed 04/21/2014 12:00 AM Decadron, Per 1 Mg [facility]# [address]-43 Reviewed 04/21/2014 12:00 AM Depo-Medrol, Per 80 Mg [facility]#9017-6265-39 Reviewed 05/14/2014 12:00 AM THER/PROPH/DIAG INJ SC/IM Reviewed 05/14/2014 12:00 AM Decadron, Per 1 Mg [facility]# [address]-55 Reviewed 05/14/2014 12:00 AM Depo-Medrol, Per 80 Mg [facility]#1295-0791-66 Reviewed 07/05/2014 12:00 AM THER/PROPH/DIAG INJ SC/IM Reviewed 07/05/2014 12:00 AM Decadron, Per 1 Mg [facility]# [address]-90 Reviewed 07/05/2014 12:00 AM Rocephin 1 gram [facility]#0276-9882-07 Reviewed Results Summary Data and Description Results [...] Abnormal kidney function Jul 05 2016 8:25AM Payers Insurance Name Company Name Plan Name Plan Number Policy Number Policy Group Number Start Date Medicare RHC Medicare RHC [id number] N/A [place] [employer] Prog - RHC [place] [employer] Prog - RH [id number] N/A Medicare Part A Medicare - Lab/Xray [id number] N/A Medicare Part B Medicare Of [place] [id number] N/A [place] Medical [facility] Assistance Prog [id number] N/A Medicare Part A Medicare Part A [id number] N/A History of Encounters Visit Date Visit Type Provider 06/29/2016 Office visit ELOY BRITT 06/26/2016 Office visit ELOY BRITT 06/03/2016 Office visit ELOY BRITT 05/31/2016 Office visit ELOY BRITT 05/14/2016 Office visit ELOY BRITT 04/17/2016 Office visit ELOY BRITT 04/02/2016 Office visit ELOY BRITT 03/22/2016 Hospital Jhony Phelps MD 03/22/2016 [facility] Mukul Lopez MD 12/15/2015 Office [...]
--- OUTSIDE RECORDS SUMMARY | 2018-01-13 11:45 | XMS REPORT ---
Author ELOY Fleming [facility] Address [address] [place], [place] [address] Care Team Providers Care Straw Hat Brim Raiser Operator Name Role Phone ELOY AHUMADA PCP [...] Returned 01/24/2015 12:00 AM Toradol 60 Mg [facility]#8806-6325-37 Reviewed 03/25/2015 12:00 AM Toradol 60 Mg [facility]#5198-4593-36 Reviewed 04/06/2015 12:00 AM MRI NECK SPINE W/O DYE Returned 02/26/2011 12:00 AM THER/PROPH/DIAG INJ SC/IM Reviewed 02/26/2011 12:00 AM Decadron Inj.1mg-([facility]) [facility] #[id number] Reviewed 02/26/2011 12:00 AM Depo-Medrol 80 Mg Im/[facility] [id number] Reviewed 03/11/2012 12:00 AM THER/PROPH/DIAG INJ SC/IM Reviewed 03/11/2012 12:00 AM Decadron, Per 1 Mg [facility]# [address]-41 Reviewed 03/11/2012 12:00 AM Depo-Medrol, Per 80 Mg [facility]#6955-2712-14 Reviewed 03/11/2012 12:00 AM Rocephin 1 gram [facility]#0566-3666-38 Reviewed 04/11/2012 12:00 AM Flu Injection 3 Years And Above [facility]# [address]-80 [facility] Reviewed 10/27/2012 12:00 AM THER/PROPH/DIAG INJ SC/IM Reviewed 10/27/2012 12:00 AM Decadron, Per 1 Mg [facility]# [address]-97 Reviewed 10/27/2012 12:00 AM Depo-Medrol, Per 80 Mg [facility]#9136-6626-06 Reviewed 12/26/2012 12:00 AM COMPLETE CBC W/AUTO DIFF WBC Reviewed 12/26/2012 12:00 AM COMPREHEN METABOLIC PANEL Reviewed 12/26/2012 12:00 AM LIPID PANEL Reviewed 12/26/2012 12:00 AM ASSAY THYROID STIM HORMONE Reviewed 08/27/2013 12:00 AM THER/PROPH/DIAG INJ SC/IM Reviewed 08/27/2013 12:00 AM Toradol 60 Mg [facility]#9518-1485-66 Reviewed 12/01/2013 12:00 AM THER/PROPH/DIAG INJ SC/IM Reviewed 12/01/2013 12:00 AM Toradol 60 Mg [facility]#1976-2934-69 Reviewed 07/17/2010 12:00 AM THER/PROPH/DIAG INJ SC/IM Reviewed 07/17/2010 12:00 AM Decadron Inj.6mg-([facility]) [facility] #[id number] Reviewed 07/17/2010 12:00 AM Depo-Medrol 120 Mg Im/[facility] 0009-042113 Reviewed 04/21/2014 12:00 AM IMMUNIZATION ADMIN Reviewed 04/21/2014 12:00 AM THER/PROPH/DIAG INJ SC/IM Reviewed 04/21/2014 12:00 AM Decadron, Per 1 Mg [facility]# [address]-72 Reviewed 04/21/2014 12:00 AM Depo-Medrol, Per 80 Mg [facility]#8459-5365-93 Reviewed 05/14/2014 12:00 AM THER/PROPH/DIAG INJ SC/IM Reviewed 05/14/2014 12:00 AM Decadron, Per 1 Mg [facility]# [address]-43 Reviewed 05/14/2014 12:00 AM Depo-Medrol, Per 80 Mg [facility]#0241-7369-28 Reviewed 07/05/2014 12:00 AM THER/PROPH/DIAG INJ SC/IM Reviewed 07/05/2014 12:00 AM Decadron, Per 1 Mg [facility]# [address]-72 Reviewed 07/05/2014 12:00 AM Rocephin 1 gram [facility]#2116-6991-09 Reviewed Results Summary Data and Description Results [...] 2015 10:04AM Smoker May 12 2015 10:04AM Payers Insurance Name Company Name Plan Name Plan Number Policy Number Policy Group Number Start Date Medicare Part A Medicare Part A [id number] N/A [facility] [id number] N/A History of Encounters Visit Date Visit [...] visit ELOY BRITT 05/11/2014 Office visit ELOY AHUMADA PA 04/21/2014 [...]
--- OUTSIDE RECORDS SUMMARY | 2018-01-13 11:48 | XMS REPORT ---
Author Author ELOY AHUMADA [facility] Address [address] [place], [place] [address] Care Team Providers Care Customer Development Manager Name Role Phone ELOY AHUMADA PCP ELOY [...] used in Small Volume Nebulizer QID PRN potassium chloride 10 mEq oral tablet,ER particles/crystals [...] by oral route 4 times per day Zithromax Z-Jerome 250 mg oral tablet 04/04/2017 take 2 tablets (500 mg) by oral route once daily for 1 day then 1 tablet (250 mg) by oral route once daily for 4 days Xanax 0.5 mg oral tablet 05/16/2017 take 1 tablet (0.5 mg) by oral route 3 times per day Tamiflu 75 mg oral capsule 05/30/2017 take 1 capsule (75 mg) by oral route once daily for 10 days Monistat 7 2 % (100 mg)- 2 % (9 gram) vaginal comb pack,prefill appl, cream 06/06/2017 use as directed amoxicillin 500 mg oral capsule 07/09/2017 [...] ; rinse mouth and throat after use Name Start Date Expiration Date SIG Comments [...] oral route once daily for 4 days nystatin 100,000 unit/mL oral suspension 07/24/2017 07/24/2017 take 4 milliliters (400,000 unit) by oral route 4 times per day Levaquin 750 mg oral tablet 08/08/2017 08/18/2017 take 1 tablet (750 mg) by oral [...] Fear of Active 04/03/2017 Debility Active 08/02/2017 Vital Signs Date Time BP-Sys(mm[Hg] BP-Zaynab(mm[Hg]) HR(bpm) RR(rpm) Temp WT HT HC BMI BSA BMI Percentile O2 Sat(%) 08/20/2017 3:40:00 PM 148 mmHg 62 mmHg [...] Reviewed 01/24/2015 12:00 AM Toradol 60 Mg [facility]#8334-9671-60 Reviewed 03/25/2015 12:00 AM Toradol 60 Mg [facility]#4252-5473-13 Reviewed 04/06/2015 12:00 AM MRI NECK SPINE W/O DYE Reviewed 05/27/2015 12:00 AM Decadron, Per 1 Mg [facility][NOTE 3]# [address]-96 Reviewed 05/27/2015 12:00 AM Depo-Medrol, Per 80 Mg [facility][NOTE 3]#8169-7910-51 Reviewed 05/27/2015 12:00 AM Rocephin 1 gram [facility][NOTE 3]#3895-9150-75 Reviewed 02/26/2011 12:00 AM THER/PROPH/DIAG INJ SC/IM Reviewed 02/26/2011 12:00 AM Decadron Inj.1mg-([facility]) [facility] #[id number] Reviewed 02/26/2011 12:00 AM Depo-Medrol 80 Mg Im/[facility][NOTE 3] [id number] Reviewed 12/15/2015 12:00 AM Rocephin 1 gram [facility][NOTE 3]#8872-4679-43 Reviewed 06/03/2016 12:00 AM THERAPEUTIC PROPHYLACTIC/DX INJECTION SUBQ/IM Reviewed 06/03/2016 12:00 AM Decadron 8mg Injection, [facility] Medicare Reviewed 06/27/2016 12:00 AM COMPREHEN METABOLIC PANEL Returned 06/27/2016 12:00 AM URINALYSIS AUTO W/SCOPE Returned 07/05/2016 12:00 AM COMPREHEN METABOLIC PANEL Reviewed 07/12/2016 12:00 AM COMPREHEN METABOLIC PANEL Reviewed 07/23/2016 12:00 AM COMPREHEN METABOLIC PANEL Reviewed 09/07/2016 12:00 AM THERAPEUTIC PROPHYLACTIC/DX INJECTION SUBQ/IM Reviewed 09/07/2016 12:00 AM Rocephin 1 gram Injection, [facility] Medicare Reviewed 09/03/2016 12:00 AM THERAPEUTIC PROPHYLACTIC/DX INJECTION SUBQ/IM Reviewed 09/03/2016 12:00 AM Rocephin 1 gram Injection, [facility] Medicare Reviewed 10/22/2016 12:00 AM THERAPEUTIC PROPHYLACTIC/DX INJECTION SUBQ/IM Reviewed 10/18/2016 12:00 AM Lasix, Up to 20 Mg [facility][NOTE 3]#1580-6721-38 [facility] Medicare Reviewed 11/16/2016 12:00 AM ASSAY OF NATRIURETIC PEPTIDE Reviewed 12/03/2016 12:00 AM THERAPEUTIC PROPHYLACTIC/DX INJECTION SUBQ/IM Reviewed 12/03/2016 12:00 AM Decadron 8mg Injection, [facility] Medicare Reviewed 11/30/2016 12:00 AM THERAPEUTIC PROPHYLACTIC/DX INJECTION SUBQ/IM Reviewed 11/30/2016 12:00 AM Decadron 8mg Injection, [facility] Medicare Reviewed 11/30/2016 12:00 AM Rocephin 1 gram Injection, [facility] Medicare Reviewed 11/30/2016 12:00 AM AIRWAY INHALATION TREATMENT Reviewed 01/09/2017 12:00 AM THERAPEUTIC PROPHYLACTIC/DX INJECTION SUBQ/IM Reviewed 01/09/2017 12:00 AM Decadron 8mg Injection Reviewed 01/28/2017 12:00 AM DRAIN/INJ JOINT/BURSA W/O US Reviewed 02/01/2017 12:00 AM DRAIN/INJ JOINT/BURSA W/O US Reviewed 03/11/2012 12:00 AM THER/PROPH/DIAG INJ SC/IM Reviewed 03/11/2012 12:00 AM Decadron, Per 1 Mg [facility] 3]# [address]-73 Reviewed 03/11/2012 12:00 AM Depo-Medrol, Per 80 Mg [facility][NOTE 3]#4738-8174-94 Reviewed 03/11/2012 12:00 AM Rocephin 1 gram [facility][NOTE 3]#8940-1880-61 Reviewed 04/11/2012 12:00 AM Flu Injection 3 Years And Above [facility][NOTE 3]# [address]-99 [facility] Reviewed 05/08/2017 12:00 AM THERAPEUTIC PROPHYLACTIC/DX INJECTION SUBQ/IM Reviewed 05/08/2017 12:00 AM Toradol 60 Mg Injection, [facility] Medicare Reviewed 07/31/2017 12:00 AM ASSAY OF NATRIURETIC PEPTIDE Returned 10/27/2012 12:00 AM THER/PROPH/DIAG INJ SC/IM Reviewed 10/27/2012 12:00 AM Decadron, Per 1 Mg [facility][NOTE 3]# [address]-51 Reviewed 10/27/2012 12:00 AM Depo-Medrol, Per 80 Mg [facility][NOTE 3]#3397-2870-43 Reviewed 12/26/2012 12:00 AM COMPLETE CBC W/AUTO DIFF WBC Reviewed 12/26/2012 12:00 AM COMPREHEN METABOLIC PANEL Reviewed 12/26/2012 12:00 AM LIPID PANEL Reviewed 12/26/2012 12:00 AM ASSAY THYROID STIM HORMONE Reviewed 08/27/2013 12:00 AM THER/PROPH/DIAG INJ SC/IM Reviewed 08/27/2013 12:00 AM Toradol 60 Mg [facility][NOTE 3]#4058-5704-64 Reviewed 12/01/2013 12:00 AM THER/PROPH/DIAG INJ SC/IM Reviewed 12/01/2013 12:00 AM Toradol 60 Mg [facility][NOTE 3]#0334-1358-39 Reviewed 07/17/2010 12:00 AM THER/PROPH/DIAG INJ SC/IM Reviewed 07/17/2010 12:00 AM Decadron Inj.6mg-([facility]) [facility] #[id number] Reviewed 07/17/2010 12:00 AM Depo-Medrol 120 Mg Im/[facility][NOTE 3] [id number] Reviewed 04/21/2014 12:00 AM IMMUNIZATION ADMIN Reviewed 04/21/2014 12:00 AM THER/PROPH/DIAG INJ SC/IM Reviewed 04/21/2014 12:00 AM Decadron, Per 1 Mg [facility][NOTE 3]# [address]-71 Reviewed 04/21/2014 12:00 AM Depo-Medrol, Per 80 Mg [facility][NOTE 3]#5236-6696-72 Reviewed 05/14/2014 12:00 AM THER/PROPH/DIAG INJ SC/IM Reviewed 05/14/2014 12:00 AM Decadron, Per 1 Mg [facility][NOTE 3]# [address]-44 Reviewed 05/14/2014 12:00 AM Depo-Medrol, Per 80 Mg [facility][NOTE 3]#0176-2156-89 Reviewed 07/05/2014 12:00 AM THER/PROPH/DIAG INJ SC/IM Reviewed 07/05/2014 12:00 AM Decadron, Per 1 Mg [facility][NOTE 3]# [address]-09 Reviewed 07/05/2014 12:00 AM Rocephin 1 gram [facility][NOTE 3]#6633-5019-17 Reviewed Results Summary Date and Description Results [...] disease 03/26/2017 Fear of 04/03/2017 Debility 08/02/2017 Seasonal Allergies Feb 28 2011 2:02PM Costochondritis [...] kidney disease Stable Jul 31 2017 1:48PM Payers Insurance Name Company Name Plan Name Plan Number Policy Number Policy Group Number Start Date Medicare RHC Medicare RHC [id number] N/A [place] [employer] Prog - RHC [place] [employer] - RHC [id number] N/A Medicare Part A Medicare - Lab/Xray [id number] N/A Medicare Part B Medicare Of [place] [id number] N/A [place] Medical Assistance Program [place] Medical [place] Prog [id number] N/A Medicare Part A Medicare Part A [id number] N/A History of Encounters Visit Date Visit Type Provider 08/20/2017 Office visit ELOY BRITT 07/31/2017 Office [...] PA 03/22/2016 Hospital Jhony Phelps MD 03/22/2016 [facility] Mukul Lopez MD 12/15/2015 Office visit [...] visit Eloy BRITT-C 06/20/2009 Office visit Eloy BRITT-C 02/18/2009 Office visit Eloy Ahumada PA-C
--- OUTSIDE RECORDS SUMMARY | 2018-01-13 11:49 | XMS REPORT ---
Author Author ELOY AHUMADA [facility] Address [address] [place], [place] [address] Care Team Providers Care Net Coordinator Name Role Phone ELOY AHUMADA PCP [...] per day in the morning and evening Name Start Date Expiration Date SIG Comments [...] HC BMI BSA BMI Percentile O2 Sat(%) 08/01/2016 12:23:00 PM 128 mmHg 74 mmHg [...] Reviewed 01/24/2015 12:00 AM Toradol 60 Mg [facility]#2973-8252-60 Reviewed 03/25/2015 12:00 AM Toradol 60 Mg [facility]#7839-3415-53 Reviewed 04/06/2015 12:00 AM MRI NECK SPINE W/O DYE Reviewed 05/27/2015 12:00 AM Decadron, Per 1 Mg [facility]# [address]-72 Reviewed 05/27/2015 12:00 AM Depo-Medrol, Per 80 Mg [facility]#8238-5729-40 Reviewed 05/27/2015 12:00 AM Rocephin 1 gram [facility]#6846-8327-40 Reviewed 02/26/2011 12:00 AM THER/PROPH/DIAG INJ SC/IM Reviewed 02/26/2011 12:00 AM Decadron Inj.1mg-([facility]) [facility] #[id number] Reviewed 02/26/2011 12:00 AM Depo-Medrol 80 Mg Im/[facility] 0009-070777 Reviewed 12/15/2015 12:00 AM Rocephin 1 gram [facility]#7630-7106-92 Reviewed 06/03/2016 12:00 AM THERAPEUTIC PROPHYLACTIC/DX INJECTION SUBQ/IM Reviewed 06/03/2016 12:00 AM Decadron 8mg Injection, [facility] Medicare Reviewed 06/27/2016 12:00 AM COMPREHEN METABOLIC PANEL Returned 06/27/2016 12:00 AM URINALYSIS AUTO W/SCOPE Returned 03/11/2012 12:00 AM THER/PROPH/DIAG INJ SC/IM Reviewed 03/11/2012 12:00 AM Decadron, Per 1 Mg [facility]# [address]-68 Reviewed 03/11/2012 12:00 AM Depo-Medrol, Per 80 Mg [facility]#7718-5000-10 Reviewed 03/11/2012 12:00 AM Rocephin 1 gram [facility]#9198-5523-25 Reviewed 04/11/2012 12:00 AM Flu Injection 3 Years And Above [facility]# [address]-26 [facility] Reviewed 10/27/2012 12:00 AM THER/PROPH/DIAG INJ SC/IM Reviewed 10/27/2012 12:00 AM Decadron, Per 1 Mg [facility]# [address]-76 Reviewed 10/27/2012 12:00 AM Depo-Medrol, Per 80 Mg [facility]#0780-9502-52 Reviewed 12/26/2012 12:00 AM COMPLETE CBC W/AUTO DIFF WBC Reviewed 12/26/2012 12:00 AM COMPREHEN METABOLIC PANEL Reviewed 12/26/2012 12:00 AM LIPID PANEL Reviewed 12/26/2012 12:00 AM ASSAY THYROID STIM HORMONE Reviewed 08/27/2013 12:00 AM THER/PROPH/DIAG INJ SC/IM Reviewed 08/27/2013 12:00 AM Toradol 60 Mg [facility]#5456-6759-58 Reviewed 12/01/2013 12:00 AM THER/PROPH/DIAG INJ SC/IM Reviewed 12/01/2013 12:00 AM Toradol 60 Mg [facility]#7883-8152-67 Reviewed 07/17/2010 12:00 AM THER/PROPH/DIAG INJ SC/IM Reviewed 07/17/2010 12:00 AM Decadron Inj.6mg-([facility]) [facility] #[id number] Reviewed 07/17/2010 12:00 AM Depo-Medrol 120 Mg Im/[facility] 0009-105852 Reviewed 04/21/2014 12:00 AM IMMUNIZATION ADMIN Reviewed 04/21/2014 12:00 AM THER/PROPH/DIAG INJ SC/IM Reviewed 04/21/2014 12:00 AM Decadron, Per 1 Mg [facility]# [address]-64 Reviewed 04/21/2014 12:00 AM Depo-Medrol, Per 80 Mg [facility]#0878-4275-22 Reviewed 05/14/2014 12:00 AM THER/PROPH/DIAG INJ SC/IM Reviewed 05/14/2014 12:00 AM Decadron, Per 1 Mg [facility]# [address]-80 Reviewed 05/14/2014 12:00 AM Depo-Medrol, Per 80 Mg [facility]#3127-9382-85 Reviewed 07/05/2014 12:00 AM THER/PROPH/DIAG INJ SC/IM Reviewed 07/05/2014 12:00 AM Decadron, Per 1 Mg [facility]# [address]-40 Reviewed 07/05/2014 12:00 AM Rocephin 1 gram [facility]#8763-1366-34 Reviewed Results Summary Data and Description Results [...] of both hands Aug 01 2016 12:23PM Payers Insurance Name Company Name Plan Name Plan Number Policy Number Policy Group Number Start Date Medicare RHC Medicare RHC [id number] N/A [place] Le[employer] Representative Prog [facility] - RHC [id number] N/A Medicare Part A Medicare - Lab/Xray [id number] N/A Medicare Part B Medicare Of [place] [id number] N/A [place] Medical Assistance Program [place] [facility] [employer] Prog [id number] N/A Medicare Part A Medicare Part A [id number] N/A History of Encounters Visit Date Visit Type Provider 07/27/2016 Office visit ELOY BRITT 07/18/2016 Office [...] BRITT 03/22/2016 Hospital Jhony Phelps MD 03/22/2016 [facility] Mukul oLpez MD 12/15/2015 Office visit ELOY AHUMADA PA [...]
--- OUTSIDE RECORDS SUMMARY | 2018-01-13 11:50 | XMS REPORT ---
Author Author ELOY AHUMADA [facility] Address [address] [place], [place] [address] Care Team Providers Care Plater Helper Name Role Phone ELOY AHUMADA PCP [...] oral route every 6 hours as needed pantoprazole 40 mg oral tablet,delayed release (DR/EC) 03/18/2015 TAKE 1 TABLET BY MOUTH ONCE DAILY Name Start Date Expiration Date SIG Comments [...] HC BMI BSA BMI Percentile O2 Sat(%) 03/25/2015 10:00:00 AM 118 mmHg 68 mmHg [...] 01/24/2015 12:00 AM Toradol 60 Mg [facility]#3092-1323-50 Reviewed 02/26/2011 12:00 AM THER/PROPH/DIAG INJ SC/IM Reviewed 02/26/2011 12:00 AM Decadron Inj.1mg-([facility]) [facility] #[id number] Reviewed 02/26/2011 12:00 AM Depo-Medrol 80 Mg Im/[facility] [id number] Reviewed 03/11/2012 12:00 AM THER/PROPH/DIAG INJ SC/IM Reviewed 03/11/2012 12:00 AM Decadron, Per 1 Mg [facility]# [address]-54 Reviewed 03/11/2012 12:00 AM Depo-Medrol, Per 80 Mg [facility]#0204-5047-01 Reviewed 03/11/2012 12:00 AM Rocephin 1 gram [facility]#1997-6626-04 Reviewed 04/11/2012 12:00 AM Flu Injection 3 Years And Above [facility]# [address]-34 C Reviewed 10/27/2012 12:00 AM THER/PROPH/DIAG INJ SC/IM Reviewed 10/27/2012 12:00 AM Decadron, Per 1 Mg [facility]# [address]-46 Reviewed 10/27/2012 12:00 AM Depo-Medrol, Per 80 Mg [facility]#0771-1453-64 Reviewed 12/26/2012 12:00 AM COMPLETE CBC W/AUTO DIFF WBC Reviewed 12/26/2012 12:00 AM COMPREHEN METABOLIC PANEL Reviewed 12/26/2012 12:00 AM LIPID PANEL Reviewed 12/26/2012 12:00 AM ASSAY THYROID STIM HORMONE Reviewed 08/27/2013 12:00 AM THER/PROPH/DIAG INJ SC/IM Reviewed 08/27/2013 12:00 AM Toradol 60 Mg [facility]#9559-9700-48 Reviewed 12/01/2013 12:00 AM THER/PROPH/DIAG INJ SC/IM Reviewed 12/01/2013 12:00 AM Toradol 60 Mg [facility]#2007-9005-24 Reviewed 07/17/2010 12:00 AM THER/PROPH/DIAG INJ SC/IM Reviewed 07/17/2010 12:00 AM Decadron Inj.6mg-([facility]) [facility] #[id number] Reviewed 07/17/2010 12:00 AM Depo-Medrol 120 Mg Im/[facility] Gerardo [facility] [id number] Reviewed 04/21/2014 12:00 AM IMMUNIZATION ADMIN Reviewed 04/21/2014 12:00 AM THER/PROPH/DIAG INJ SC/IM Reviewed 04/21/2014 12:00 AM Decadron, Per 1 Mg [facility]# [address]-32 Reviewed 04/21/2014 12:00 AM Depo-Medrol, Per 80 Mg [facility]#4589-0665-26 Reviewed 05/14/2014 12:00 AM THER/PROPH/DIAG INJ SC/IM Reviewed 05/14/2014 12:00 AM Decadron, Per 1 Mg [facility]# [address]-34 Reviewed 05/14/2014 12:00 AM Depo-Medrol, Per 80 Mg [facility]#4545-7[address]-31 Reviewed 07/05/2014 12:00 AM THER/PROPH/DIAG INJ SC/IM Reviewed 07/05/2014 12:00 AM Decadron, Per 1 Mg [facility]# [address]-95 Reviewed 07/05/2014 12:00 AM Rockatiehimarilyn 1 gram [facility]#1443-8843-03 Reviewed Results Summary Data and Description Results [...] 2015 11:38AM Diverticulitis Mar 25 2015 11:38AM Payers Insurance Name Company Name Plan Name Plan Number Policy Number Policy Group Number Start Date Medicare Part A Medicare Part A [id number] N/A [facility] 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 [facility] Asst Pro - [facility] [id number] N/A History of Encounters Visit Date Visit Type Provider 03/25/2015 Office visit ELOY BRITT 01/28/2015 Office visit ELOY BRITT 01/24/2015 Office visit ELOY AHUMADA PA 01/03/2015 Office visit ELOY AHUMADA PA 11/17/2014 Office visit ELOY BRITT 08/13/2014 Office visit ELOY AHUMADA PA 07/08/2014 Voided ELOY AHUMADA PA 07/05/2014 Office visit ELOY BRITT 05/14/2014 Office [...] ELOY AHUMADA PA 10/30/2011 Office visit ELOY BRITT 08/02/2011 Office visit ELOY AHUMADA PA 02/26/2011 Office visit Eloy Ahumada PA-C 11/29/2010 Office visit Eloy Ahumada PA-C 07/17/2010 Office visit Eloy Ahumada PA-C 01/17/2010 Office visit Eloy Ahumada PA-C 12/30/2009 Office visit Eloy Ahumada PA-C 07/22/2009 Office visit Eloy Ahumada PA-C 06/20/2009 Office visit Eloy Ahumada PA-C 02/18/2009 Office visit Eloy Ahumada PA-C
[2018-01-13 11:52] LABS: BACTERIA,URINE NEGATIVE /HPF; RBC,URINE 0-2 /HPF
--- OUTSIDE RECORDS SUMMARY | 2018-01-13 11:52 | XMS REPORT ---
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#0621-2168-06 Reviewed 03/25/2015 12:00 AM Toradol 60 Mg [facility]#7170-6013-64 Reviewed 04/06/2015 12:00 AM MRI NECK SPINE W/O DYE Reviewed 05/27/2015 12:00 AM Decadron, Per 1 Mg [facility]# [address]-65 Reviewed 05/27/2015 12:00 AM Depo-Medrol, Per 80 Mg [facility]#0205-7882-83 Reviewed 05/27/2015 12:00 AM Rocephin 1 gram [facility]#6744-7528-27 Reviewed 02/26/2011 12:00 AM THER/PROPH/DIAG INJ SC/IM Reviewed 02/26/2011 12:00 AM Decadron Inj.1mg-([facility]) [facility] #[id number] Reviewed 02/26/2011 12:00 AM Depo-Medrol 80 Mg Im/[facility] 0009-717679 Reviewed 12/15/2015 12:00 AM Rocephin 1 gram [facility]#4175-5585-67 Reviewed 06/03/2016 12:00 AM THERAPEUTIC PROPHYLACTIC/DX INJECTION [...] 09/07/2016 12:00 AM Rocephin 1 gram Injection, [facility] Medicare Reviewed 09/03/2016 12:00 AM THERAPEUTIC PROPHYLACTIC/DX INJECTION SUBQ/IM Reviewed 09/03/2016 12:00 AM Rocephin 1 gram Injection, R[facility] Medicare Reviewed 10/22/2016 12:00 AM THERAPEUTIC PROPHYLACTIC/DX INJECTION SUBQ/IM Reviewed 10/18/2016 12:00 AM Lasix, Up to 20 Mg [facility]#0764-3505-45 [facility] Medicare Reviewed 11/16/2016 12:00 AM ASSAY OF NATRIURETIC PEPTIDE Reviewed 12/03/2016 12:00 AM THERAPEUTIC PROPHYLACTIC/DX INJECTION SUBQ/IM Reviewed 12/03/2016 12:00 AM Decadron 8mg Injection, [facility] Medicare Reviewed 11/30/2016 12:00 AM THERAPEUTIC PROPHYLACTIC/DX [...] 1 Mg [facility]# [address]-77 Reviewed 03/11/2012 12:00 AM Depo-Medrol, Per 80 Mg [facility]#1004-3279-94 Reviewed 03/11/2012 12:00 AM Rocephin 1 gram [facility]#7379-3216-17 Reviewed 04/11/2012 12:00 AM Flu Injection 3 Years And Above [facility]# [address]-00 [facility] Reviewed 10/27/2012 12:00 AM THER/PROPH/DIAG INJ SC/IM Reviewed 10/27/2012 12:00 AM Decadron, Per 1 Mg [facility]# [address]-35 Reviewed 10/27/2012 12:00 AM Depo-Medrol, Per 80 Mg [facility]#6468-4339-31 Reviewed 12/26/2012 12:00 AM COMPLETE CBC W/AUTO DIFF WBC Reviewed 12/26/2012 12:00 AM COMPREHEN METABOLIC PANEL Reviewed 12/26/2012 12:00 AM LIPID PANEL Reviewed 12/26/2012 12:00 AM ASSAY THYROID STIM HORMONE Reviewed 08/27/2013 12:00 AM THER/PROPH/DIAG INJ SC/IM Reviewed 08/27/2013 12:00 AM Toradol 60 Mg [facility]#5215-2969-28 Reviewed 12/01/2013 12:00 AM THER/PROPH/DIAG INJ SC/IM Reviewed 12/01/2013 12:00 AM Toradol 60 Mg [facility]#4451-0306-32 Reviewed 07/17/2010 12:00 AM THER/PROPH/DIAG INJ SC/IM Reviewed 07/17/2010 12:00 AM Decadron Inj.6mg-([facility]) [facility] #[id number] Reviewed 07/17/2010 12:00 AM Depo-Medrol 120 Mg Im/[facility] 0009-486351 Reviewed 04/21/2014 12:00 AM IMMUNIZATION ADMIN Reviewed 04/21/2014 12:00 AM THER/PROPH/DIAG INJ SC/IM Reviewed 04/21/2014 12:00 AM Decadron, Per 1 Mg [facility]# [address]-74 Reviewed 04/21/2014 12:00 AM Depo-Medrol, Per 80 Mg [facility]#3026-4111-98 Reviewed 05/14/2014 12:00 AM THER/PROPH/DIAG INJ SC/IM Reviewed 05/14/2014 12:00 AM Decadron, Per 1 Mg [facility]# [address]-33 Reviewed 05/14/2014 12:00 AM Depo-Medrol, Per 80 Mg [facility]#1062-9318-59 Reviewed 07/05/2014 12:00 AM THER/PROPH/DIAG INJ SC/IM Reviewed 07/05/2014 12:00 AM Decadron, Per 1 Mg [facility]# [address]-86 Reviewed 07/05/2014 12:00 AM Rocephin 1 gram [facility]#1885-3219-19 Reviewed Results Summary Date and Description Results [...] Pulmonary Disease 08/31/2013 Low Back Pain Jan 14 2009 9:32AM Essential hypertension 07/12/2015 Chronic back pain [...] Jun 29 2016 11:22AM Other chronic pain b 2016 11:22AM COPD mixed type Jun 29 [...] b 2016 4:40PM Dependence on supplemental oxygen Jun [...] 11:02AM Debility, unspecified Apr 01 2017 11:02AM Payers Insurance Name Company Name Plan Name Plan Number Policy Number Policy Group Number Start Date Medicare RHC Medicare RHC [id number] N/A [place] [employer] Prog - RHC [place] [employer] Prog - RHC [id number] N/A Medicare Part A Medicare - Lab/Xray [id number] N/A Medicare Part B Medicare Of [place] [id number] N/A [place] Medical Assistance Program [place] Medical Assistance Prog [id number] N/A Medicare Part A Medicare Part A [id number] N/A History of Encounters Visit Date Visit Type Provider 04/01/2017 Office visit ELOY BRITT 03/25/2017 Office [...] 12/17/2016 Office visit ELOY BRITT 12/10/2016 Leann Lopez MD 12/05/2016 Office visit ELOY BRITT 12/03/2016 Office visit ELOY BRITT 11/30/2016 Office visit ELOY BRITT 11/29/2016 Office visit ELOY BRITT 11/16/2016 Office visit ELOY BRITT 11/01/2016 Office visit ELOY BRITT 10/25/2016 Office visit ELOY BRITT 10/18/2016 Office visit ELOY AHUMADA PA 10/04/2016 [...] ELOY AHUMADA PA 04/02/2016 Office visit ELOY BRTIT 03/22/2016 Hospital Jhony Phelps MD 03/22/2016 [facility] Mukul Lopez MD 12/15/2015 Office visit [...]
--- OUTSIDE RECORDS SUMMARY | 2018-01-13 11:54 | XMS REPORT ---
Author Author ELOY AHUMADA [facility] Address [address] [place], [place] [address] Care Team Providers Care Home Restoration Service Supervisor Name Role Phone ELOY AHUMADA PCP Unavailable [...] route once daily for 4 days Zithromax Z-Jermoe 250 mg oral tablet 05/12/2015 05/17/2015 take [...] 60 Mg [facility]#4527-7794-80 Reviewed 03/25/2015 12:00 AM Toradol 60 Mg [facility]#0668-9248-55 Reviewed 04/06/2015 12:00 AM MRI NECK SPINE W/O DYE Reviewed 05/27/2015 12:00 AM Decadron, Per 1 Mg [facility]# [address]-12 Reviewed 05/27/2015 12:00 AM Depo-Medrol, Per 80 Mg [facility]#4573-6775-64 Reviewed 05/27/2015 12:00 AM Rocephin 1 gram [facility]#8365-7761-04 Reviewed 02/26/2011 12:00 AM THER/PROPH/DIAG INJ SC/IM Reviewed 02/26/2011 12:00 AM Decadron Inj.1mg-([facility]) [facility] [place] #[id number] Reviewed 02/26/2011 12:00 AM Depo-Medrol 80 Mg Im/[facility] Gerardo [facility] 0009-544943 Reviewed 12/15/2015 12:00 AM Rocephin 1 gram [facility]#0754-4704-91 Reviewed 06/03/2016 12:00 AM THERAPEUTIC PROPHYLACTIC/DX INJECTION [...] Mg [facility]# [address]-97 Reviewed 03/11/2012 12:00 AM Depo-Medrol, Per 80 Mg [facility]#5047-2780-43 Reviewed 03/11/2012 12:00 AM Rocephin 1 gram [facility]#3060-5127-54 Reviewed 04/11/2012 12:00 AM Flu Injection 3 Years And Above [facility]# [address]-09 [facility] Reviewed 10/27/2012 12:00 AM THER/PROPH/DIAG INJ SC/IM Reviewed 10/27/2012 12:00 AM Decadron, Per 1 Mg [facility]# [address]-47 Reviewed 10/27/2012 12:00 AM Depo-Medrol, Per 80 Mg [facility]#5226-2243-84 Reviewed 12/26/2012 12:00 AM COMPLETE CBC W/AUTO DIFF WBC Reviewed 12/26/2012 12:00 AM COMPREHEN METABOLIC PANEL Reviewed 12/26/2012 12:00 AM LIPID PANEL Reviewed 12/26/2012 12:00 AM ASSAY THYROID STIM HORMONE Reviewed 08/27/2013 12:00 AM THER/PROPH/DIAG INJ SC/IM Reviewed 08/27/2013 12:00 AM Toradol 60 Mg [facility]#0210[address]-33 Reviewed 12/01/2013 12:00 AM THER/PROPH/DIAG INJ SC/IM Reviewed 12/01/2013 12:00 AM Toradol 60 Mg [facility]#6039-8024-42 Reviewed 07/17/2010 12:00 AM THER/PROPH/DIAG INJ SC/IM Reviewed 07/17/2010 12:00 AM Decadron Inj.6mg-([facility]) [facility] #[id number] Reviewed 07/17/2010 12:00 AM Depo-Medrol 120 Mg Im/St Gerardo [facility] 0009-459990 Reviewed 04/21/2014 12:00 AM IMMUNIZATION ADMIN Reviewed 04/21/2014 12:00 AM THER/PROPH/DIAG INJ SC/IM Reviewed 04/21/2014 12:00 AM Decadron, Per 1 Mg [facility]# [address]-74 Reviewed 04/21/2014 12:00 AM Depo-Medrol, Per 80 Mg [facility]#0253-[address]658-19 Reviewed 05/14/2014 12:00 AM THER/PROPH/DIAG INJ SC/IM Reviewed 05/14/2014 12:00 AM Decadron, Per 1 Mg [facility]# [address]-42 Reviewed 05/14/2014 12:00 AM Depo-Medrol, Per 80 Mg [facility]#9970-6537-69 Reviewed 07/05/2014 12:00 AM THER/PROPH/DIAG INJ SC/IM Reviewed 07/05/2014 12:00 AM Decadron, Per 1 Mg [facility]# [address]-71 Reviewed 07/05/2014 12:00 AM Rocephin 1 gram [facility]#3157-2473-99 Reviewed Results Summary Date and Description Results [...] Abnormal kidney function Oct 18 2016 10:14AM Payers Insurance Name Company Name Plan Name Plan Number Policy Number Policy Group Number Start Date Medicare RHC Medicare RHC [id number] N/A [place] [employer] Prog - RHC [place] [employer] - RHC [id number] N/A Medicare Part A Medicare - Lab/Xray [id number] N/A Medicare Part B Medicare Of [place] [id number] N/A [place] Medical Assistance [facility] Medical Assistance Prog [id number] N/A Medicare Part A Medicare Part A [id number] N/A History of Encounters Visit Date Visit Type Provider 10/18/2016 Office visit ELOY BRITT 10/04/2016 Office [...] PA 03/22/2016 Hospital Jhony Phelps MD 03/22/2016 [facility] Mukul Lopez MD 12/15/2015 Office visit [...]
--- OUTSIDE RECORDS SUMMARY | 2018-01-13 11:56 | XMS REPORT ---
Author ELOY Fleming [facility] Address [address] [place], [place] [address] Care Team Providers Care Pit Tanner Name Role Phone ELOY AHUMADA PCP Unavailable [...] Stage 3 chronic kidney disease Active 03/26/2017 Vital Signs Date Time BP-Sys(mm[Hg] BP-Zaynab(mm[Hg]) HR(bpm) RR(rpm) Temp WT HT HC BMI BSA BMI Percentile O2 Sat(%) 03/25/2017 10:14:00 AM 134 mmHg 80 mmHg [...] Reviewed 01/24/2015 12:00 AM Toradol 60 Mg [facility]#6821-9747-54 Reviewed 03/25/2015 12:00 AM Toradol 60 Mg [facility]#3286-0652-83 Reviewed 04/06/2015 12:00 AM MRI NECK SPINE W/O DYE Reviewed 05/27/2015 12:00 AM Decadron, Per 1 Mg [facility]# [address]-93 Reviewed 05/27/2015 12:00 AM Depo-Medrol, Per 80 Mg [facility]#6723-4975-83 Reviewed 05/27/2015 12:00 AM Rocephin 1 gram [facility]#5605-9773-91 Reviewed 02/26/2011 12:00 AM THER/PROPH/DIAG INJ SC/IM Reviewed 02/26/2011 12:00 AM Decadron Inj.1mg-([facility]ardo) [facility] #[id number] Reviewed 02/26/2011 12:00 AM Depo-Medrol 80 Mg Im/St Gerardo [facility] 0009-262126 Reviewed 12/15/2015 12:00 AM Rocephin 1 gram [facility]#1127-3944-88 Reviewed 06/03/2016 12:00 AM THERAPEUTIC PROPHYLACTIC/DX INJECTION [...] 09/07/2016 12:00 AM Rocephin 1 gram Injection, [facility] Medicare Reviewed 09/03/2016 12:00 AM THERAPEUTIC PROPHYLACTIC/DX INJECTION SUBQ/IM Reviewed 09/03/2016 12:00 AM Rocephin 1 gram Injection, [facility] Medicare Reviewed 10/22/2016 12:00 AM THERAPEUTIC PROPHYLACTIC/DX INJECTION SUBQ/IM Reviewed 10/18/2016 12:00 AM Lasix, Up to 20 Mg [facility]#2610-9015-60 [facility] Medicare Reviewed 11/16/2016 12:00 AM ASSAY [...] 12:00 AM Decadron, Per 1 Mg [facility]# [address]-78 Reviewed 03/11/2012 12:00 AM Depo-Medrol, Per 80 Mg [facility]#2677-0311-95 Reviewed 03/11/2012 12:00 AM Rocephin 1 gram [facility]#5037-9609-66 Reviewed 04/11/2012 12:00 AM Flu Injection 3 Years And Above [facility]# [address]-98 [facility] Reviewed 10/27/2012 12:00 AM THER/PROPH/DIAG INJ SC/IM Reviewed 10/27/2012 12:00 AM Decadron, Per 1 Mg [facility]# [address]-65 Reviewed 10/27/2012 12:00 AM Depo-Medrol, Per 80 Mg [facility]#5970-7254-35 Reviewed 12/26/2012 12:00 AM COMPLETE CBC W/AUTO DIFF WBC Reviewed 12/26/2012 12:00 AM COMPREHEN METABOLIC PANEL Reviewed 12/26/2012 12:00 AM LIPID PANEL Reviewed 12/26/2012 12:00 AM ASSAY THYROID STIM HORMONE Reviewed 08/27/2013 12:00 AM THER/PROPH/DIAG INJ SC/IM Reviewed 08/27/2013 12:00 AM Toradol 60 Mg [facility]#6301-6612-68 Reviewed 12/01/2013 12:00 AM THER/PROPH/DIAG INJ SC/IM Reviewed 12/01/2013 12:00 AM Toradol 60 Mg [facility]#6953-6232-25 Reviewed 07/17/2010 12:00 AM THER/PROPH/DIAG INJ SC/IM Reviewed 07/17/2010 12:00 AM Decadron Inj.6mg-([facility]) [facility] #[id number] Reviewed 07/17/2010 12:00 AM Depo-Medrol 120 Mg Im/St Gerardo [facility] 0009-158338 Reviewed 04/21/2014 12:00 AM IMMUNIZATION ADMIN Reviewed 04/21/2014 12:00 AM THER/PROPH/DIAG INJ SC/IM Reviewed 04/21/2014 12:00 AM Decadron, Per 1 Mg [facility]# [address]-54 Reviewed 04/21/2014 12:00 AM Depo-Medrol, Per 80 Mg [facility]#3239-[address]-30 Reviewed 05/14/2014 12:00 AM THER/PROPH/DIAG INJ SC/IM Reviewed 05/14/2014 12:00 AM Decadron, Per 1 Mg [facility]# [address]-68 Reviewed 05/14/2014 12:00 AM Depo-Medrol, Per 80 Mg [facility]#8177-6383-91 Reviewed 07/05/2014 12:00 AM THER/PROPH/DIAG INJ SC/IM Reviewed 07/05/2014 12:00 AM Decadron, Per 1 Mg [facility]# [address]-05 Reviewed 07/05/2014 12:00 AM Rocephin 1 gram [facility]#3829-1723-34 Reviewed Results Summary Date and Description Results [...] Of Immunizations Name Date Admin Mfg Name [facility] [place] Trade Name Lot# Route Inj Vis [...] 01/29/2017 Stage 3 chronic kidney disease 03/26/2017 Seasonal Allergies Feb 28 2011 2:02PM Costochondritis [...] oxygen Jun 26 2016 4:40PM Peripheral edema b 2016 4:40PM [...] chronic kidney disease Mar 25 2017 10:14AM Payers Insurance Name Company Name Plan Name Plan Number Policy Number Policy Group Number Start Date Medicare RHC Medicare RHC [id number] N/A [place] [facility] [id number] N/A Medicare Part A Medicare - Lab/Xray [id number] N/A Medicare Part B Medicare Of [place] [id number] N/A [place] Medical Assistance Program [place] Medical Assistance Prog [id number] N/A Medicare Part A Medicare Part A [id number] N/A History of Encounters Visit Date Visit Type Provider 03/25/2017 Office visit ELOY BRITT 03/12/2017 Office visit ELOY AHUMADA PA 02/26/2017 Office visit ELOY AHUMADA PA 02/14/2017 Voided ELOY AHUMADA PA 02/14/2017 Office visit ELOY AHUMADA PA 02/01/2017 Office visit ELOY AHUMADA PA 01/28/2017 Office visit ELOY AHUMADA PA 01/21/2017 Office visit ELOY BRITT 01/09/2017 Office visit ELOY AHUMADA PA 01/03/2017 Office visit ELOY AHUMADA PA 12/28/2016 Office visit ELOY AHUMADA PA 12/25/2016 Office visit ELOY BRITT 12/17/2016 Office visit ELOY AHUMADA PA 12/10/2016 [facility] Dwayne Lopez MD 12/05/2016 Office visit ELOY AHUMADA PA 12/03/2016 Office visit ELOY AHUMADA PA 11/30/2016 Office visit ELOY BRITT 11/29/2016 Office visit ELOY BRITT 11/16/2016 Office visit ELOY AHUMADA PA 11/01/2016 Office visit ELOY BRITT 10/25/2016 Office [...] BRITT 03/22/2016 Hospital Jhony Phelps MD 03/22/2016 [facility] Mukul Lopez MD 12/15/2015 Office visit [...]
--- OUTSIDE RECORDS SUMMARY | 2018-01-13 11:57 | XMS REPORT ---
Author Author ELOY AHUMADA [facility] Address [address] [place], [place] [address] Care Team Providers Care Associate Account Director Name Role Phone ELOY AHUMADA PCP Unavailable Allergies and Adverse Reactions Name Reaction Notes Depo-Medrol Pain, muscle spasms, insomnia Decadron Pain, Muscle spasms, insomnia Plan of Treatment Planned Activity Comments Planned Date Planned Time Plan/Goal COMPLETE CBC W/AUTO DIFF WBC 01/24/2015 12:00 AM COMPREHEN METABOLIC PANEL 01/24/2015 12:00 AM LIPID PANEL 01/24/2015 12:00 AM Medications Active Name Start Date [...] tablet 01/04/2015 1/2 po in the am Name Start [...] Disease Active 08/31/2013 Essential Hypertension Active 03/06/2014 Vital Signs Date Time BP-Sys(mm[Hg] BP-Zaynab(mm[Hg]) HR(bpm) RR(rpm) Temp WT HT HC BMI BSA BMI Percentile O2 Sat(%) 01/04/2015 9:05:00 AM 140 mmHg 80 mmHg [...] SC/IM Reviewed 02/26/2011 12:00 AM Decadron Inj.1mg-([facility]) [facility] #[id number] Reviewed 02/26/2011 12:00 AM Depo-Medrol 80 Mg Im/[facility] [id number] Reviewed 03/11/2012 12:00 AM THER/PROPH/DIAG INJ SC/IM Reviewed 03/11/2012 12:00 AM Decadron, Per 1 Mg [facility]# [address]-43 Reviewed 03/11/2012 12:00 AM Depo-Medrol, Per 80 Mg [facility]#5961-0144-06 Reviewed 03/11/2012 12:00 AM Rocephin 1 gram [facility]#8562-0005-83 Reviewed 04/11/2012 12:00 AM Flu Injection 3 Years And Above [facility]# [address]-90 RHC Reviewed 10/27/2012 12:00 AM THER/PROPH/DIAG INJ SC/IM Reviewed 10/27/2012 12:00 AM Decadron, Per 1 Mg [facility]# [address]-51 Reviewed 10/27/2012 12:00 AM Depo-Medrol, Per 80 Mg [facility]#2469-9336-83 Reviewed 12/26/2012 12:00 AM COMPLETE CBC W/AUTO DIFF WBC Reviewed 12/26/2012 12:00 AM COMPREHEN METABOLIC PANEL Reviewed 12/26/2012 12:00 AM LIPID PANEL Reviewed 12/26/2012 12:00 AM ASSAY THYROID STIM HORMONE Reviewed 08/27/2013 12:00 AM THER/PROPH/DIAG INJ SC/IM Reviewed 08/27/2013 12:00 AM Toradol 60 Mg [facility]#8108-4604-66 Reviewed 12/01/2013 12:00 AM THER/PROPH/DIAG INJ SC/IM Reviewed 12/01/2013 12:00 AM Toradol 60 Mg [facility]#2035-3554-39 Reviewed 07/17/2010 12:00 AM THER/PROPH/DIAG INJ SC/IM Reviewed 07/17/2010 12:00 AM Decadron Inj.6mg-([facility]) [facility] #[id number] Reviewed 07/17/2010 12:00 AM Depo-Medrol 120 Mg Im/[facility] [id number] Reviewed 04/21/2014 12:00 AM IMMUNIZATION ADMIN Reviewed 04/21/2014 12:00 AM THER/PROPH/DIAG INJ SC/IM Reviewed 04/21/2014 12:00 AM Decadron, Per 1 Mg [facility]# [address]-78 Reviewed 04/21/2014 12:00 AM Depo-Medrol, Per 80 Mg [facility]#7064-3735-97 Reviewed 05/14/2014 12:00 AM THER/PROPH/DIAG INJ SC/IM Reviewed 05/14/2014 12:00 AM Decadron, Per 1 Mg [facility]# [address]-63 Reviewed 05/14/2014 12:00 AM Depo-Medrol, Per 80 Mg [facility]#1956[address]-12 Reviewed 07/05/2014 12:00 AM THER/PROPH/DIAG INJ SC/IM Reviewed 07/05/2014 12:00 AM Decadron, Per 1 Mg [facility]# [address]-68 Reviewed 07/05/2014 12:00 AM Rocephin 1 gram [facility]#7954-1697-90 Reviewed Results Summary Not available. History Of [...] 2015 12:39PM Diverticulitis Jan 24 2015 12:39PM Payers Insurance Name Company Name Plan Name Plan Number Policy Number Policy Group Number Start Date Medicare Part A Medicare Part A [id number] N/A [facility] 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 [facility] Asst Pro - [facility] [id number] N/A History of Encounters Visit Date Visit Type Provider 01/24/2015 Office visit ELOY AHUMADA PA 01/03/2015 [...] Eloy Ahumada PA-C 11/29/2010 Office visit Eloy Ahumdaa PA-C 07/17/2010 Office visit Eloy Ahumada PA-C 01/17/2010 Office visit Eloy Ahumada PA-C 12/30/2009 Office visit Eloy Ahumada PA-C 07/22/2009 Office visit Eloy Ahumada PA-C 06/20/2009 Office visit Eloy Ahumada PA-C 02/18/2009 Office visit Eloy Ahumada PA-C
--- OUTSIDE RECORDS SUMMARY | 2018-01-13 11:59 | XMS REPORT ---
Author ELOY Fleming [facility] Address [address] [place], [place] [address] Care Team Providers Care Night Nurse Name Role Phone ELOY AHUMADA PCP Unavailable [...] Reviewed 01/24/2015 12:00 AM Toradol [address] [facility]#1629-3548-35 Reviewed 03/25/2015 12:00 AM Toradol [address] [facility]#9540-3582-40 Reviewed 04/06/2015 12:00 AM MRI NECK SPINE W/O DYE Reviewed 05/27/2015 12:00 AM Decadron, Per [address] [facility]# [address]-10 Reviewed 05/27/2015 12:00 AM Depo-Medrol, Per [address] [facility]#5299-3920-04 Reviewed 05/27/2015 12:00 AM Rocephin [address] [facility]#2011-6272-44 Reviewed 02/26/2011 12:00 AM THER/PROPH/DIAG INJ SC/IM Reviewed 02/26/2011 12:00 AM Decadron Inj.1mg-([facility]) [facility] #[id number] Reviewed 02/26/2011 12:00 AM Depo-Medrol 80 Mg Im/[facility] 0009-933403 Reviewed 12/15/2015 12:00 AM Rocephin [address] [facility]#4972-4465-60 Reviewed 06/03/2016 12:00 AM THERAPEUTIC PROPHYLACTIC/DX INJECTION [...] 03/11/2012 12:00 AM Decadron, Per [address] [facility]# [address]-13 Reviewed 03/11/2012 12:00 AM Depo-Medrol, Per [address] [facility]#9416-4097-14 Reviewed 03/11/2012 12:00 AM Rocephin [address] [facility]#5446-7032-62 Reviewed 04/11/2012 12:00 AM Flu Injection [address] Years [address] [facility]# [address]-71 [facility] Reviewed 10/27/2012 12:00 AM THER/PROPH/DIAG INJ SC/IM Reviewed 10/27/2012 12:00 AM Decadron, Per [address] [facility]# [address]-87 Reviewed 10/27/2012 12:00 AM Depo-Medrol, Per [address] [facility]#3606-7710-28 Reviewed 12/26/2012 12:00 AM COMPLETE CBC W/AUTO DIFF WBC Reviewed 12/26/2012 12:00 AM COMPREHEN METABOLIC PANEL Reviewed 12/26/2012 12:00 AM LIPID PANEL Reviewed 12/26/2012 12:00 AM ASSAY THYROID STIM HORMONE Reviewed 08/27/2013 12:00 AM THER/PROPH/DIAG INJ SC/IM Reviewed 08/27/2013 12:00 AM Toradol [address] [facility]#4507-8238-49 Reviewed 12/01/2013 12:00 AM THER/PROPH/DIAG INJ SC/IM Reviewed 12/01/2013 12:00 AM Toradol [address] [facility]#0523-4542-22 Reviewed 07/17/2010 12:00 AM THER/PROPH/DIAG INJ SC/IM Reviewed 07/17/2010 12:00 AM Decadron Inj.6mg-([facility]) [facility] #[id number] Reviewed 07/17/2010 12:00 AM Depo-Medrol 120 Mg Im/[facility]ardo [facility] 0009-161440 Reviewed 04/21/2014 12:00 AM IMMUNIZATION ADMIN Reviewed 04/21/2014 12:00 AM THER/PROPH/DIAG INJ SC/IM Reviewed 04/21/2014 12:00 AM Decadron, Per [address] [facility]# [address]-26 Reviewed 04/21/2014 12:00 AM Depo-Medrol, Per [address] [facility]#6965-2420-59 Reviewed 05/14/2014 12:00 AM THER/PROPH/DIAG INJ SC/IM Reviewed 05/14/2014 12:00 AM Decadron, Per [address] [facility]# [address]-72 Reviewed 05/14/2014 12:00 AM Depo-Medrol, Per [address] [facility]#6398-5041-77 Reviewed 07/05/2014 12:00 AM THER/PROPH/DIAG INJ SC/IM Reviewed 07/05/2014 12:00 AM Decadron, Per [address] [facility]# [address]-27 Reviewed 07/05/2014 12:00 AM Rocephin [address] [facility]#9114-0941-80 Reviewed Results Summary Date and Description Results [...] Number Start Date Medicare RHC Medicare RHC [id number] N/A [place] [employer] Attendant Prog - RHC [facility] 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 [id number] N/A Medicare Part A Medicare - Lab/Xray [id number] N/A Medicare Part B Medicare Of [place] [id number] N/A [place] [facility] [place] [facility] Prog [id number] N/A Medicare Part A Medicare Part A [id number] N/A History of Encounters Visit Date Visit Type Provider 10/04/2016 Office visit ELOY BRITT 09/17/2016 Office visit ELOY BRITT 09/07/2016 Office visit ELOY BRITT 09/03/2016 Office visit ELYO BRITT 08/20/2016 Office visit ELOY BRITT 08/15/2016 Office visit ELOY BRITT 08/09/2016 Office visit ELOY BRITT 07/27/2016 Office visit ELOY BRITT 07/18/2016 Office visit ELOY BRITT 07/16/2016 Office visit ELOY BRITT 07/06/2016 Office visit ELOY BRITT 06/29/2016 Office visit ELOY BRITT 06/26/2016 Office visit ELOY BRITT 06/03/2016 Office visit ELOY BRITT 05/31/2016 Office visit ELOY AHUMADA PA 05/14/2016 Office visit ELOY AHUMADA PA 04/17/2016 Office visit ELOY AHUMADA PA 04/02/2016 Office visit ELOY AHUMADA PA 03/22/2016 [facility] Jhony Phelps MD 03/22/2016 [facility] Mukul Lopez MD 12/15/2015 [...] 05/14/2014 Office visit 05/14/2014 Office visit ELOY AHUMDAA PA 05/11/2014 Office visit ELOY AHUMADA PA 04/21/2014 Office visit 04/21/2014 Office visit ELOY AHUMADA PA 02/18/2014 Office visit ELOY AHUMADA PA 12/01/2013 Office visit ELOY BRITT 11/09/2013 Voided [...]
[2018-01-13] MEDS ORDERED: IOHEXOL 350 MG/ML 100 ML (OMNIPAQUE 350) VIAL IV ONE (12:00)
[2018-01-13] MEDS ORDERED: NS 250 ML (IVPB) BAG IV ONE (12:00)
--- OUTSIDE RECORDS SUMMARY | 2018-01-13 12:00 | XMS REPORT ---
Author ELOY Fleming [facility] Address [address] [place], [place] [address] Care Team Providers Care Relief Operator Name Role Phone ELOY AHUMADA PCP [...] Toradol 60 Mg [facility]#6062-9251-19 Reviewed 03/25/2015 12:00 AM Toradol 60 Mg [facility]#8819-1110-74 Reviewed 04/06/2015 12:00 AM MRI NECK SPINE W/O DYE Reviewed 05/27/2015 12:00 AM Decadron, Per 1 Mg [facility]# [address]-41 Reviewed 05/27/2015 12:00 AM Depo-Medrol, Per 80 Mg [facility]#1292-5593-57 Reviewed 05/27/2015 12:00 AM Rocephin 1 gram [facility]#8996-7449-91 Reviewed 02/26/2011 12:00 AM THER/PROPH/DIAG INJ SC/IM Reviewed 02/26/2011 12:00 AM Decadron Inj.1mg-([facility]) [facility] #[id number] Reviewed 02/26/2011 12:00 AM Depo-Medrol 80 Mg Im/[facility] 0009-288111 Reviewed 12/15/2015 12:00 AM Rocephin 1 gram [facility]#6192-0506-01 Reviewed 06/03/2016 12:00 AM THERAPEUTIC PROPHYLACTIC/DX INJECTION SUBQ/IM Reviewed 06/03/2016 12:00 AM Decadron 8mg Injection, RHC Medicare Reviewed 06/27/2016 12:00 AM COMPREHEN METABOLIC PANEL Returned 06/27/2016 12:00 AM URINALYSIS AUTO W/SCOPE Returned 03/11/2012 12:00 AM THER/PROPH/DIAG INJ SC/IM Reviewed 03/11/2012 12:00 AM Decadron, Per 1 Mg [facility]# [address]-50 Reviewed 03/11/2012 12:00 AM Depo-Medrol, Per 80 Mg [facility]#2699-6488-84 Reviewed 03/11/2012 12:00 AM Rocephin 1 gram [facility]#4078-4639-64 Reviewed 04/11/2012 12:00 AM Flu Injection 3 Years And Above [facility]# [address]-72 [facility] Reviewed 10/27/2012 12:00 AM THER/PROPH/DIAG INJ SC/IM Reviewed 10/27/2012 12:00 AM Decadron, Per 1 Mg [facility]# [address]-11 Reviewed 10/27/2012 12:00 AM Depo-Medrol, Per 80 Mg [facility]#8173-2307-40 Reviewed 12/26/2012 12:00 AM COMPLETE CBC W/AUTO DIFF WBC Reviewed 12/26/2012 12:00 AM COMPREHEN METABOLIC PANEL Reviewed 12/26/2012 12:00 AM LIPID PANEL Reviewed 12/26/2012 12:00 AM ASSAY THYROID STIM HORMONE Reviewed 08/27/2013 12:00 AM THER/PROPH/DIAG INJ SC/IM Reviewed 08/27/2013 12:00 AM Toradol 60 Mg [facility]#0523-[address]-19 Reviewed 12/01/2013 12:00 AM THER/PROPH/DIAG INJ SC/IM Reviewed 12/01/2013 12:00 AM Toradol 60 Mg [facility]#1267-3440-34 Reviewed 07/17/2010 12:00 AM THER/PROPH/DIAG INJ SC/IM Reviewed 07/17/2010 12:00 AM Decadron Inj.6mg-([facility]) [facility] #[id number] Reviewed 07/17/2010 12:00 AM Depo-Medrol 120 Mg Im/[facility] 0009-729518 Reviewed 04/21/2014 12:00 AM IMMUNIZATION ADMIN Reviewed 04/21/2014 12:00 AM THER/PROPH/DIAG INJ SC/IM Reviewed 04/21/2014 12:00 AM Decadron, Per 1 Mg [facility]# [address]-37 Reviewed 04/21/2014 12:00 AM Depo-Medrol, Per 80 Mg [facility]#1009-4027-65 Reviewed 05/14/2014 12:00 AM THER/PROPH/DIAG INJ SC/IM Reviewed 05/14/2014 12:00 AM Decadron, Per 1 Mg [facility]# [address]-39 Reviewed 05/14/2014 12:00 AM Depo-Medrol, Per 80 Mg [facility]#8469-6250-41 Reviewed 07/05/2014 12:00 AM THER/PROPH/DIAG INJ SC/IM Reviewed 07/05/2014 12:00 AM Decadron, Per 1 Mg [facility]# [address]-38 Reviewed 07/05/2014 12:00 AM Rocephin 1 gram [facility]#3694-1030-63 Reviewed Results Summary Data and Description Results [...] Respiratory Infection Mar 11 2012 1:18PM Flu Dec 7 2012 1:26PM Eustachian Tube Dysfunction Apr 17 [...] breath on exertion Jun 26 2016 4:40PM Payers Insurance Name Company Name Plan Name Plan Number Policy Number Policy Group Number Start Date Medicare RHC Medicare RHC [id number] N/A [place] 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 - 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 [place] 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 - RHC [id number] N/A Medicare Part A Medicare - Lab/Xray [id number] N/A Medicare Part B Medicare Of [place] [id number] N/A [place] [facility] [place] [facility] Prog [id number] N/A Medicare Part A Medicare Part A [id number] N/A History of Encounters Visit Date Visit Type Provider 06/29/2016 Office visit ELOY BRITT 06/26/2016 Office visit ELOY BRITT 06/03/2016 Office visit ELOY BRTIT 05/31/2016 Office visit ELOY BRITT 05/14/2016 Office visit ELOY BRITT 04/17/2016 Office visit ELOY BRITT 04/02/2016 Office visit ELOY BRITT 03/22/2016 [facility] Jhony Phelps MD 03/22/2016 [facility] Mukul Lopez MD 12/15/2015 Office [...] ELOY AHUMADA PA 06/19/2013 Office visit ELOY AHUMDAA PA 06/01/2013 Office visit ELOY AHUMADA PA [...]
--- OUTSIDE RECORDS SUMMARY | 2018-01-13 12:01 | XMS REPORT ---
Author ELOY Fleming [facility] Address [address] [place], [place] [address] Care Team Providers Care Tie Bucker Name Role Phone ELOY AHUMADA PCP Unavailable [...] ONCE DAILY lisinopril-hydrochlorothiazide 10-12.5 mg oral tablet 02/28/2016 take 1 tablet by oral route once daily for 30 days Percocet 5-325 mg oral tablet 03/09/2016 take 1 tablet by oral route every [...] Returned 01/24/2015 12:00 AM Toradol 60 Mg [facility]#6608-3053-22 Reviewed 03/25/2015 12:00 AM Toradol 60 Mg [facility]#6872-3275-74 Reviewed 04/06/2015 12:00 AM MRI NECK SPINE W/O DYE Returned 05/27/2015 12:00 AM Decadron, Per 1 Mg [facility]# [address]-68 Reviewed 05/27/2015 12:00 AM Depo-Medrol, Per 80 Mg [facility]#0447-3907-47 Reviewed 05/27/2015 12:00 AM Rocephin 1 gram [facility]#5824-4081-84 Reviewed 02/26/2011 12:00 AM THER/PROPH/DIAG INJ SC/IM Reviewed 02/26/2011 12:00 AM Decadron Inj.1mg-([facility]) [facility] #[id number] Reviewed 02/26/2011 12:00 AM Depo-Medrol 80 Mg Im/[facility] 0009-394222 Reviewed 12/15/2015 12:00 AM Rocephin 1 gram [facility]#5521-4715-19 Reviewed 03/11/2012 12:00 AM THER/PROPH/DIAG INJ SC/IM Reviewed 03/11/2012 12:00 AM Decadron, Per 1 Mg [facility]# [address]-51 Reviewed 03/11/2012 12:00 AM Depo-Medrol, Per 80 Mg [facility]#1775-6516-44 Reviewed 03/11/2012 12:00 AM Rocephin 1 gram [place]#3371-9167-00 Reviewed 04/11/2012 12:00 AM Flu Injection 3 Years And Above [facility]# [address]-97 RHC Reviewed 10/27/2012 12:00 AM THER/PROPH/DIAG INJ SC/IM Reviewed 10/27/2012 12:00 AM Decadron, Per 1 Mg [facility]# [address]-46 Reviewed 10/27/2012 12:00 AM Depo-Medrol, Per 80 Mg [facility]#0515-8551-97 Reviewed 12/26/2012 12:00 AM COMPLETE CBC W/AUTO DIFF WBC Reviewed 12/26/2012 12:00 AM COMPREHEN METABOLIC PANEL Reviewed 12/26/2012 12:00 AM LIPID PANEL Reviewed 12/26/2012 12:00 AM ASSAY THYROID STIM HORMONE Reviewed 08/27/2013 12:00 AM THER/PROPH/DIAG INJ SC/IM Reviewed 08/27/2013 12:00 AM Toradol 60 Mg [place]#1845-6290-68 Reviewed 12/01/2013 12:00 AM THER/PROPH/DIAG INJ SC/IM Reviewed 12/01/2013 12:00 AM Toradol 60 Mg [facility]#7760-2029-83 Reviewed 07/17/2010 12:00 AM THER/PROPH/DIAG INJ SC/IM Reviewed 07/17/2010 12:00 AM Decadron Inj.6mg-([facility]) [facility] #[id number] Reviewed 07/17/2010 12:00 AM Depo-Medrol 120 Mg Im/[facility]ardo [facility] 0009-986646 Reviewed 04/21/2014 12:00 AM IMMUNIZATION ADMIN Reviewed 04/21/2014 12:00 AM THER/PROPH/DIAG INJ SC/IM Reviewed 04/21/2014 12:00 AM Decadron, Per 1 Mg [facility]# [address]-64 Reviewed 04/21/2014 12:00 AM Depo-Medrol, Per 80 Mg [facility]#0251-6927-53 Reviewed 05/14/2014 12:00 AM THER/PROPH/DIAG INJ SC/IM Reviewed 05/14/2014 12:00 AM Decadron, Per 1 Mg [facility]# [address]-75 Reviewed 05/14/2014 12:00 AM Depo-Medrol, Per 80 Mg [facility]#4165-8253-45 Reviewed 07/05/2014 12:00 AM THER/PROPH/DIAG INJ SC/IM Reviewed 07/05/2014 12:00 AM Decadron, Per 1 Mg [facility]# [address]-40 Reviewed 07/05/2014 12:00 AM Rocephin 1 gram [facility]#3197-8047-64 Reviewed Results Summary Data and Description Results [...] Start Date Medicare Part A Medicare RHC [id number] N/A [place] 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 [facility] Asst Prog - RH [id number] N/A Medicare Part A Medicare - Lab/Xray [id number] N/A Medicare Part A Medicare Part A [id number] N/A History of Encounters Visit Date Visit Type Provider 03/22/2016 Office visit ELOY BRITT 12/15/2015 Office visit ELOY BRITT 10/24/2015 Office visit ELOY BRITT 10/11/2015 Office visit ELOY BRITT 07/05/2015 Office visit EOLY BRITT 06/09/2015 Office visit ELOY BRITT 05/12/2015 Office visit ELOY BRITT 03/25/2015 Office visit ELOY BRITT 01/28/2015 Office visit ELOY BRITT 01/24/2015 Office visit ELOY BRITT 01/03/2015 Office visit ELOY AHUMADA PA 11/17/2014 [...]
--- OUTSIDE RECORDS SUMMARY | 2018-01-13 12:04 | XMS REPORT ---
Author Author ELOY AHUMADA [facility] Address [address] [facility], [facility] [address] [place], [place] [id number] Care Team Providers Care Director Of Hotel Name Role Phone ELOY AHUMADA PCP ELOY [...] TAKE 1 TABLET BY MOUTH ONCE DAILY Levaquin 750 mg oral tablet 08/08/2017 08/18/2017 [...] by oral route 4 times per day Discontinued Name Start Date Discontinued Date SIG [...] day diazepam 5 mg oral tablet 02/18/2014 03/26/2016/ to 1 PO BID PRN anxiety fluticasone [...] HC BMI BSA BMI Percentile O2 Sat(%) 07/31/2017 1:46:00 PM 128 mmHg 80 mmHg [...] AM Toradol 60 Mg [facility]#6075-1279-78 Reviewed 03/25/2015 12:00 AM Toradol 60 Mg [place]#9832-6103-18 Reviewed 04/06/2015 12:00 AM MRI NECK SPINE W/O DYE Reviewed 05/27/2015 12:00 AM Decadron, Per 1 Mg [facility]# [address]-17 Reviewed 05/27/2015 12:00 AM Depo-Medrol, Per 80 Mg [facility]#3906-5289-41 Reviewed 05/27/2015 12:00 AM Rocephin 1 gram [facility]#4028-9400-64 Reviewed 02/26/2011 12:00 AM THER/PROPH/DIAG INJ SC/IM Reviewed 02/26/2011 12:00 AM Decadron Inj.1mg-([facility]) [facility] #[id number] Reviewed 02/26/2011 12:00 AM Depo-Medrol 80 Mg Im/[facility] [id number] Reviewed 12/15/2015 12:00 AM Rocephin 1 gram [facility]#9549-5134-90 Reviewed 06/03/2016 12:00 AM THERAPEUTIC PROPHYLACTIC/DX INJECTION [...] 09/07/2016 12:00 AM Rocephin 1 gram Injection, [facility] Medicare Reviewed 09/03/2016 12:00 AM THERAPEUTIC PROPHYLACTIC/DX INJECTION SUBQ/IM Reviewed 09/03/2016 12:00 AM Rocephin 1 gram Injection, [facility] Medicare Reviewed 10/22/2016 12:00 AM THERAPEUTIC PROPHYLACTIC/DX INJECTION SUBQ/IM Reviewed 10/18/2016 12:00 AM Lasix, Up to 20 Mg [facility]#2078-5541-71 [facility] Medicare Reviewed 11/16/2016 12:00 AM ASSAY OF NATRIURETIC PEPTIDE Reviewed 12/03/2016 12:00 AM THERAPEUTIC PROPHYLACTIC/DX INJECTION SUBQ/IM Reviewed 12/03/2016 12:00 AM Decadron 8mg Injection, [facility] Medicare Reviewed 11/30/2016 12:00 AM THERAPEUTIC PROPHYLACTIC/DX INJECTION SUBQ/IM Reviewed 11/30/2016 12:00 AM Decadron 8mg Injection, [facility] Medicare Reviewed 11/30/2016 12:00 AM Rocephin 1 [...] Decadron, Per 1 Mg [facility]# [address]-71 Reviewed 03/11/2012 12:00 AM Depo-Medrol, Per 80 Mg [facility]#0426-7666-03 Reviewed 03/11/2012 12:00 AM Rocephin 1 gram [facility]#1418-2089-01 Reviewed 04/11/2012 12:00 AM Flu Injection 3 Years And Above [facility]# [address]-92 [facility] Reviewed 05/08/2017 12:00 AM THERAPEUTIC PROPHYLACTIC/DX INJECTION SUBQ/IM Reviewed 05/08/2017 12:00 AM Toradol 60 Mg Injection, [facility] Medicare Reviewed 07/31/2017 12:00 AM ASSAY OF NATRIURETIC PEPTIDE Returned 10/27/2012 12:00 AM THER/PROPH/DIAG INJ SC/IM Reviewed 10/27/2012 12:00 AM Decadron, Per 1 Mg [facility]# [address]-60 Reviewed 10/27/2012 12:00 AM Depo-Medrol, Per 80 Mg [facility]#3749-1356-99 Reviewed 12/26/2012 12:00 AM COMPLETE CBC W/AUTO DIFF WBC Reviewed 12/26/2012 12:00 AM COMPREHEN METABOLIC PANEL Reviewed 12/26/2012 12:00 AM LIPID PANEL Reviewed 12/26/2012 12:00 AM ASSAY THYROID STIM HORMONE Reviewed 08/27/2013 12:00 AM THER/PROPH/DIAG INJ SC/IM Reviewed 08/27/2013 12:00 AM Toradol 60 Mg [facility]#8351-9942-65 Reviewed 12/01/2013 12:00 AM THER/PROPH/DIAG INJ SC/IM Reviewed 12/01/2013 12:00 AM Toradol 60 Mg [facility]#7807-9279-84 Reviewed 07/17/2010 12:00 AM THER/PROPH/DIAG INJ SC/IM Reviewed 07/17/2010 12:00 AM Decadron Inj.6mg-([facility]) [facility] #[id number] Reviewed 07/17/2010 12:00 AM Depo-Medrol 120 Mg Im/[facility] 0009-222117 Reviewed 04/21/2014 12:00 AM IMMUNIZATION ADMIN Reviewed 04/21/2014 12:00 AM THER/PROPH/DIAG INJ SC/IM Reviewed 04/21/2014 12:00 AM Decadron, Per 1 Mg [facility]# [address]-28 Reviewed 04/21/2014 12:00 AM Depo-Medrol, Per 80 Mg [facility]#8447-1132-24 Reviewed 05/14/2014 12:00 AM THER/PROPH/DIAG INJ SC/IM Reviewed 05/14/2014 12:00 AM Decadron, Per 1 Mg [facility]# [address]-72 Reviewed 05/14/2014 12:00 AM Depo-Medrol, Per 80 Mg [facility]#1792-9112-79 Reviewed 07/05/2014 12:00 AM THER/PROPH/DIAG INJ SC/IM Reviewed 07/05/2014 12:00 AM Decadron, Per 1 Mg [facility]# [address]-31 Reviewed 07/05/2014 12:00 AM Rocephin 1 gram [facility]#9614-5784-13 Reviewed Results Summary Date and Description Results [...] Number Start Date Medicare RHC Medicare RHC [id number] N/A [place] [employer] Prog - RHC [facility] 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 [id number] N/A Medicare Part A Medicare - Lab/Xray [id number] N/A Medicare Part B Medicare Of [place] [id number] N/A [place] [facility] [place] Medical Assistance Prog [id number] N/A Medicare Part A Medicare Part A [id number] N/A History of Encounters Visit Date Visit Type Provider 07/31/2017 Office visit ELOY BRITT 07/05/2017 Office [...] visit ELOY BRITT 01/03/2017 Office visit ELOY AHUMADA PA 12/28/2016 [...] ELOY AHUMADA PA 06/01/2013 Office visit ELOY AHUMAAD PA 03/06/2013 Office visit ELOY AHUMADA PA [...]
--- OUTSIDE RECORDS SUMMARY | 2018-01-13 12:06 | XMS REPORT ---
Author ELOY [facility] Address [address] [facility] [address] [place], [place] [id number] Care Team Providers Care Process Safety Manager Name Role Phone ELOY AHUMADA PCP [...] HC BMI BSA BMI Percentile O2 Sat(%) 09/17/2016 1:47:00 PM 125 mmHg 62 mmHg [...] Reviewed 01/24/2015 12:00 AM Toradol 60 Mg [facility]#9738-1195-08 Reviewed 03/25/2015 12:00 AM Toradol 60 Mg [facility]#1569-9641-77 Reviewed 04/06/2015 12:00 AM MRI NECK SPINE W/O DYE Reviewed 05/27/2015 12:00 AM Decadron, Per 1 Mg [facility]# [address]-29 Reviewed 05/27/2015 12:00 AM Depo-Medrol, Per 80 Mg [facility]#1888-7092-96 Reviewed 05/27/2015 12:00 AM Rocephin 1 gram [facility]#5918-6890-35 Reviewed 02/26/2011 12:00 AM THER/PROPH/DIAG INJ SC/IM Reviewed 02/26/2011 12:00 AM Decadron Inj.1mg-([facility]) [facility] #[id number] Reviewed 02/26/2011 12:00 AM Depo-Medrol 80 Mg Im/[facility] 0009-874354 Reviewed 12/15/2015 12:00 AM Rocephin 1 gram [facility]#7316-0437-78 Reviewed 06/03/2016 12:00 AM THERAPEUTIC PROPHYLACTIC/DX INJECTION [...] gram Injection, [facility] Medicare Reviewed 03/11/2012 12:00 AM THER/PROPH/DIAG INJ SC/IM Reviewed 03/11/2012 12:00 AM Decadron, Per 1 Mg [facility]# [address]-71 Reviewed 03/11/2012 12:00 AM Depo-Medrol, Per 80 Mg [facility]#3363-8888-60 Reviewed 03/11/2012 12:00 AM Rocephin 1 gram [facility]#1105-4462-55 Reviewed 04/11/2012 12:00 AM Flu Injection 3 Years And Above [facility]# [address]-31 [facility] Reviewed 10/27/2012 12:00 AM THER/PROPH/DIAG INJ SC/IM Reviewed 10/27/2012 12:00 AM Decadron, Per 1 Mg [facility]# [address]-64 Reviewed 10/27/2012 12:00 AM Depo-Medrol, Per 80 Mg [facility]#3895-9809-65 Reviewed 12/26/2012 12:00 AM COMPLETE CBC W/AUTO DIFF WBC Reviewed 12/26/2012 12:00 AM COMPREHEN METABOLIC PANEL Reviewed 12/26/2012 12:00 AM LIPID PANEL Reviewed 12/26/2012 12:00 AM ASSAY THYROID STIM HORMONE Reviewed 08/27/2013 12:00 AM THER/PROPH/DIAG INJ SC/IM Reviewed 08/27/2013 12:00 AM Toradol 60 Mg [facility]#0536-0589-16 Reviewed 12/01/2013 12:00 AM THER/PROPH/DIAG INJ SC/IM Reviewed 12/01/2013 12:00 AM Toradol 60 Mg [facility]#6975-5420-91 Reviewed 07/17/2010 12:00 AM THER/PROPH/DIAG INJ SC/IM Reviewed 07/17/2010 12:00 AM Decadron Inj.6mg-([facility]) [facility] #[id number] Reviewed 07/17/2010 12:00 AM Depo-Medrol 120 Mg Im/[facility] [id number] Reviewed 04/21/2014 12:00 AM IMMUNIZATION ADMIN Reviewed 04/21/2014 12:00 AM THER/PROPH/DIAG INJ SC/IM Reviewed 04/21/2014 12:00 AM Decadron, Per 1 Mg [facility]# [address]-20 Reviewed 04/21/2014 12:00 AM Depo-Medrol, Per 80 Mg [facility]#0584-[address]011-18 Reviewed 05/14/2014 12:00 AM THER/PROPH/DIAG INJ SC/IM Reviewed 05/14/2014 12:00 AM Decadron, Per 1 Mg [facility]# [address]-30 Reviewed 05/14/2014 12:00 AM Depo-Medrol, Per 80 Mg [facility]#6125-0176-88 Reviewed 07/05/2014 12:00 AM THER/PROPH/DIAG INJ SC/IM Reviewed 07/05/2014 12:00 AM Decadron, Per 1 Mg [facility]# [address]-26 Reviewed 07/05/2014 12:00 AM Rocephin 1 gram [facility]#4193-6895-05 Reviewed Results Summary Date and Description Results [...] breath on exertion Sep 17 2016 1:48PM Payers Insurance Name Company Name Plan Name Plan Number Policy Number Policy Group Number Start Date Medicare RHC Medicare C [id number] N/A [facility] 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 [facility] 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 [id number] N/A Medicare Part A Medicare - Lab/Xray [id number] N/A Medicare Part B Medicare Of [place] [id number] N/A [place] Medical Assistance [facility] Medical Assistance Pro [id number] N/A Medicare Part A Medicare Part A [id number] N/A History of Encounters Visit Date Visit Type Provider 09/17/2016 Office visit ELOY BRITT 09/07/2016 Office visit ELOY AHUMADA PA 09/03/2016 Office visit ELOY AHUMADA PA 08/20/2016 Office visit ELOY AHUMADA PA 08/15/2016 Office visit ELOY AHUMADA PA 08/09/2016 Office visit ELOY AHUMADA PA 07/27/2016 Office visit ELOY AHUMADA PA 07/18/2016 Office visit ELOY AHUMADA PA 07/16/2016 Office visit ELOY AHUMADA PA 07/06/2016 Office visit ELOY BRITT 06/29/2016 Office visit ELOY AHUMADA PA 06/26/2016 Office visit ELOY AHUMADA PA 06/03/2016 Office visit ELOY AHUMADA PA 05/31/2016 Office visit ELOY BRITT 05/14/2016 Office visit ELOY BRITT 04/17/2016 Office visit ELOY AHUMADA PA 04/02/2016 Office visit ELOY BRITT 03/22/2016 Hospital Jhony Phelps MD 03/22/2016 [facility] Mukul Lopez MD 12/15/2015 Office visit [...] Eloy Ahumada PA-C 11/29/2010 Office visit Eloy Ahumaad PA-C 07/17/2010 Office visit Eloy Ahumada PA-C 01/17/2010 Office visit Eloy Ahumada PA-C 12/30/2009 Office visit Eloy Ahumada PA-C 07/22/2009 Office visit Eloy Ahumada PA-C 06/20/2009 Office visit Eloy Ahumada PA-C 02/18/2009 Office visit Eloy Ahumada PA-C
--- OUTSIDE RECORDS SUMMARY | 2018-01-13 12:08 | XMS REPORT ---
Author Author ELOY AHUMADA [facility] Address [address] [facility] [address] [place], [place] [address] Care Team Providers Care Emulsion Operator Name Role Phone ELOY AHUMADA PCP ELOY [...] Reviewed 01/24/2015 12:00 AM Toradol 60 Mg [facility]#7702-4927-11 Reviewed 03/25/2015 12:00 AM Toradol 60 Mg [facility]#6593-9625-92 Reviewed 04/06/2015 12:00 AM MRI NECK SPINE W/O DYE Reviewed 05/27/2015 12:00 AM Decadron, Per 1 Mg [facility]# [address]-16 Reviewed 05/27/2015 12:00 AM Depo-Medrol, Per 80 Mg [facility]#0769-3168-23 Reviewed 05/27/2015 12:00 AM Rocephin 1 gram [facility]#6522-3031-24 Reviewed 02/26/2011 12:00 AM THER/PROPH/DIAG INJ SC/IM Reviewed 02/26/2011 12:00 AM Decadron Inj.1mg-([facility]) [facility] #[id number] Reviewed 02/26/2011 12:00 AM Depo-Medrol 80 Mg Im/[facility] 0009-684327 Reviewed 12/15/2015 12:00 AM Rocephin 1 gram [facility]#0063-3247-60 Reviewed 06/03/2016 12:00 AM THERAPEUTIC PROPHYLACTIC/DX INJECTION SUBQ/IM Reviewed 06/03/2016 12:00 AM Decadron 8mg Injection, [facility] Medicare Reviewed 06/27/2016 12:00 AM COMPREHEN METABOLIC PANEL Returned 06/27/2016 12:00 AM URINALYSIS AUTO W/SCOPE Returned 07/05/2016 12:00 AM COMPREHEN METABOLIC PANEL Reviewed 07/12/2016 12:00 AM COMPREHEN METABOLIC PANEL Reviewed 07/23/2016 12:00 AM COMPREHEN METABOLIC PANEL Reviewed 09/07/2016 12:00 AM THERAPEUTIC PROPHYLACTIC/DX INJECTION SUBQ/IM Reviewed 09/07/2016 12:00 AM Rocephin 1 gram Injection, [facility] Medicare Reviewed 09/03/2016 12:00 AM THERAPEUTIC PROPHYLACTIC/DX INJECTION SUBQ/IM Reviewed 09/03/2016 12:00 AM Rocephin 1 gram Injection, [facility] Medicare Reviewed 10/22/2016 12:00 AM THERAPEUTIC PROPHYLACTIC/DX INJECTION SUBQ/IM Reviewed 10/18/2016 12:00 AM Lasix, Up to 20 Mg [facility]#0702-7613-14 [facility] Medicare Reviewed 11/16/2016 12:00 AM ASSAY OF NATRIURETIC PEPTIDE Reviewed 12/03/2016 12:00 AM THERAPEUTIC PROPHYLACTIC/DX INJECTION SUBQ/IM Reviewed 12/03/2016 12:00 AM Decadron 8mg Injection, [facility] Medicare Reviewed 11/30/2016 12:00 AM THERAPEUTIC PROPHYLACTIC/DX INJECTION SUBQ/IM Reviewed 11/30/2016 12:00 AM Decadron 8mg Injection, [facility] Medicare Reviewed 11/30/2016 12:00 AM Rocephin 1 gram Injection, [facility] Medicare Reviewed 11/30/2016 12:00 AM AIRWAY INHALATION TREATMENT Reviewed 01/09/2017 12:00 AM THERAPEUTIC PROPHYLACTIC/DX INJECTION SUBQ/IM Reviewed 01/09/2017 12:00 AM Decadron 8mg Injection Reviewed 01/28/2017 12:00 AM DRAIN/INJ JOINT/BURSA W/O US Reviewed 02/01/2017 12:00 AM DRAIN/INJ JOINT/BURSA W/O US Reviewed 03/11/2012 12:00 AM THER/PROPH/DIAG INJ SC/IM Reviewed 03/11/2012 12:00 AM Decadron, Per 1 Mg [facility]# [address]-93 Reviewed 03/11/2012 12:00 AM Depo-Medrol, Per 80 Mg [facility]#9228-6258-37 Reviewed 03/11/2012 12:00 AM Rocephin 1 gram [facility]#7140-9070-10 Reviewed 04/11/2012 12:00 AM Flu Injection 3 Years And Above [facility]# [address]-40 [facility] Reviewed 05/08/2017 12:00 AM THERAPEUTIC PROPHYLACTIC/DX INJECTION SUBQ/IM Reviewed 05/08/2017 12:00 AM Toradol 60 Mg Injection, [facility] Medicare Reviewed 07/31/2017 12:00 AM ASSAY OF NATRIURETIC PEPTIDE Returned 10/27/2012 12:00 AM THER/PROPH/DIAG INJ SC/IM Reviewed 10/27/2012 12:00 AM Decadron, Per 1 Mg [facility]# [address]-54 Reviewed 10/27/2012 12:00 AM Depo-Medrol, Per 80 Mg [facility]#2398-4759-28 Reviewed 12/26/2012 12:00 AM COMPLETE CBC W/AUTO DIFF WBC Reviewed 12/26/2012 12:00 AM COMPREHEN METABOLIC PANEL Reviewed 12/26/2012 12:00 AM LIPID PANEL Reviewed 12/26/2012 12:00 AM ASSAY THYROID STIM HORMONE Reviewed 08/27/2013 12:00 AM THER/PROPH/DIAG INJ SC/IM Reviewed 08/27/2013 12:00 AM Toradol 60 Mg [facility]#3293-8515-08 Reviewed 12/01/2013 12:00 AM THER/PROPH/DIAG INJ SC/IM Reviewed 12/01/2013 12:00 AM Toradol 60 Mg [facility]#2840-0859-26 Reviewed 07/17/2010 12:00 AM THER/PROPH/DIAG INJ SC/IM Reviewed 07/17/2010 12:00 AM Decadron Inj.6mg-([facility]) [facility] #[id number] Reviewed 07/17/2010 12:00 AM Depo-Medrol 120 Mg Im/[facility]ardo [facility] 0009-993581 Reviewed 04/21/2014 12:00 AM IMMUNIZATION ADMIN Reviewed 04/21/2014 12:00 AM THER/PROPH/DIAG INJ SC/IM Reviewed 04/21/2014 12:00 AM Decadron, Per 1 Mg [facility]# [address]-49 Reviewed 04/21/2014 12:00 AM Depo-Medrol, Per 80 Mg [facility]#2089-1982-59 Reviewed 05/14/2014 12:00 AM THER/PROPH/DIAG INJ SC/IM Reviewed 05/14/2014 12:00 AM Decadron, Per 1 Mg [facility]# [address]-42 Reviewed 05/14/2014 12:00 AM Depo-Medrol, Per 80 Mg [facility]#1825-3364-46 Reviewed 07/05/2014 12:00 AM THER/PROPH/DIAG INJ SC/IM Reviewed 07/05/2014 12:00 AM Decadron, Per 1 Mg [facility]# [address]-03 Reviewed 07/05/2014 12:00 AM Rocephin 1 gram [facility]#3865-8221-20 Reviewed Results Summary Date and Description Results [...] chronic kidney disease Aug 20 2017 3:41PM Payers Insurance Name Company Name Plan Name Plan Number Policy Number Policy Group Number Start Date Medicare RHC Medicare RHC [id number] N/A [place] [employer] Operator Prog - RHC [place] [employer] Prog - RHC [id number] N/A Medicare Part A Medicare - Lab/Xray [id number] N/A Medicare Part B Medicare Of [place] [id number] N/A [place] Medical Assistance Program [place] [facility] [place] Prog [id number] N/A Medicare Part A Medicare Part A [id number] N/A History of Encounters Visit Date Visit Type Provider 08/20/2017 Office visit ELOY AHUMADA PA 07/31/2017 [...] 12/17/2016 Office visit ELOY AHUMADA PA 12/10/2016 [facility] Dwayne Lopez MD 12/05/2016 Office visit [...] ELOY AHUMADA PA 06/26/2016 Office visit ELOY AHUMDAA PA 06/03/2016 Office visit ELOY AHUMADA PA 05/31/2016 Office visit ELOY AHUMADA PA 05/14/2016 Office visit ELOY AHUMADA PA 04/17/2016 Office visit ELOY AHUMADA PA 04/02/2016 Office visit ELOY AHUMADA PA 03/22/2016 Hospital Jhony Phelps MD 03/22/2016 [facility] Mukul Lopez MD 12/15/2015 Office visit ELOY [...] visit ELOY AHUMADA PA 10/30/2011 Office visit EOLY AHUMADA PA 08/02/2011 Office visit ELOY AHUMADA PA 02/26/2011 Office visit Eloy Ahumada PA-C 11/29/2010 Office visit Eloy Ahumada PA-C 07/17/2010 Office visit Eloy Ahumada PA-C 01/17/2010 Office visit Eloy Ahumada PA-C 12/30/2009 Office visit Eloy Ahumada PA-C 07/22/2009 Office visit Eloy Ahumada PA-C 06/20/2009 Office visit Eloy Ahumada PA-C 02/18/2009 Office visit Eloy Ahumada PA-C
--- OUTSIDE RECORDS SUMMARY | 2018-01-13 12:09 | XMS REPORT ---
Author Author ELOY AHUMADA [facility] Address [address] [place], [place] [id number] Care Team Providers Care Environmental Sampler Name Role Phone ELOY AHUMADA PCP Unavailable Allergies and Adverse Reactions Name Reaction Notes Depo-Medrol Pain, muscle spasms, insomnia Decadron Pain, Muscle spasms, insomnia Plan of Treatment Planned Activity Comments Planned Date Planned Time Plan/Goal BNP 05/15/2016 12:00 AM Injection,Subcutaneous/Intramuscul, RHC Medicare 06/03/2016 12:00 AM cervical pain 06/15/2015 11:00 AM [...] oral route once daily for 10 days furosemide 20 mg oral tablet 05/31/2016 take 1 tablet (20 mg) by oral route once daily as needed Name Start Date Expiration Date [...] 3 times a day as needed Zithromax Z-Jreome 250 mg oral tablet 06/05/2012 06/10/2012 take [...] oral route once daily for 30 days Discontinued Name Start Date [...] attacks Active 04/18/2016 Peripheral edema Active 06/04/2016 Vital Signs Date Time BP-Sys(mm[Hg] BP-Zaynab(mm[Hg]) HR(bpm) RR(rpm) Temp WT HT HC BMI BSA BMI Percentile O2 Sat(%) 06/04/2016 6:45:00 AM 110 mmHg 74 mmHg [...] [address] [facility]#3519-7426-46 Reviewed 03/25/2015 12:00 AM Toradol [address] [facility]#6569-1046-18 Reviewed 04/06/2015 12:00 AM MRI NECK SPINE W/O DYE Reviewed 05/27/2015 12:00 AM Decadron, Per [address] [facility]# [address]-39 Reviewed 05/27/2015 12:00 AM Depo-Medrol, Per [address] [facility]#3508-9645-30 Reviewed 05/27/2015 12:00 AM Rocephin [address] [facility]#0510-8468-95 Reviewed 02/26/2011 12:00 AM THER/PROPH/DIAG INJ SC/IM Reviewed 02/26/2011 12:00 AM Decadron Inj.1mg-([facility] #[id number] Reviewed 02/26/2011 12:00 AM Depo-Medrol 80 Mg Im/[facility] [id number] Reviewed 12/15/2015 12:00 AM Rocephin [address] [facility]#4121-9644-75 Reviewed 06/03/2016 12:00 AM Decadron 8mg Injection, R[facility] Medicare Reviewed 03/11/2012 12:00 AM THER/PROPH/DIAG INJ SC/IM Reviewed 03/11/2012 12:00 AM Decadron, Per [address] [facility]# [address]-80 Reviewed 03/11/2012 12:00 AM Depo-Medrol, Per [address] [facility]#9519-2772-25 Reviewed 03/11/2012 12:00 AM Rocephin [address] [facility]#0212-8404-67 Reviewed 04/11/2012 12:00 AM Flu Injection [address] [facility]# [address]-51 R[facility] Reviewed 10/27/2012 12:00 AM THER/PROPH/DIAG INJ SC/IM Reviewed 10/27/2012 12:00 AM Decadron, Per [address] [facility]# [address]-85 Reviewed 10/27/2012 12:00 AM Depo-Medrol, Per [address] [facility]#8726-5300-28 Reviewed 12/26/2012 12:00 AM COMPLETE CBC W/AUTO DIFF WBC Reviewed 12/26/2012 12:00 AM COMPREHEN METABOLIC PANEL Reviewed 12/26/2012 12:00 AM LIPID PANEL Reviewed 12/26/2012 12:00 AM ASSAY THYROID STIM HORMONE Reviewed 08/27/2013 12:00 AM THER/PROPH/DIAG INJ SC/IM Reviewed 08/27/2013 12:00 AM Toradol [address] [facility]#1431-0654-64 Reviewed 12/01/2013 12:00 AM THER/PROPH/DIAG INJ SC/IM Reviewed 12/01/2013 12:00 AM Toradol [address] [facility]#1455-8973-78 Reviewed 07/17/2010 12:00 AM THER/PROPH/DIAG INJ SC/IM Reviewed 07/17/2010 12:00 AM Decadron Inj.6mg-([facility] #[id number] Reviewed 07/17/2010 12:00 AM Depo-Medrol 120 Mg Im/[facility] 0009-757684 Reviewed 04/21/2014 12:00 AM IMMUNIZATION ADMIN Reviewed 04/21/2014 12:00 AM THER/PROPH/DIAG INJ SC/IM Reviewed 04/21/2014 12:00 AM Decadron, Per [address] [facility]# [address]-72 Reviewed 04/21/2014 12:00 AM Depo-Medrol, Per [address] [facility]#3836-7123-53 Reviewed 05/14/2014 12:00 AM THER/PROPH/DIAG INJ SC/IM Reviewed 05/14/2014 12:00 AM Decadron, Per [address] [facility]# [address]-63 Reviewed 05/14/2014 12:00 AM Depo-Medrol, Per [address] [facility]#6065-7711-52 Reviewed 07/05/2014 12:00 AM THER/PROPH/DIAG INJ SC/IM Reviewed 07/05/2014 12:00 AM Decadron, Per [address] [facility]# [address]-24 Reviewed 07/05/2014 12:00 AM Rocephin [address] [facility]#5229-1979-39 Reviewed Results Summary Data and Description Results [...] 04/18/2016 Panic attacks 04/18/2016 Peripheral edema 06/04/2016 Irritable Bowel Syndrome Nov 29 2010 10:16AM [...] Other chronic pain May 31 2016 11:12AM Payers Insurance Name Company Name Plan Name Plan Number Policy Number Policy Group Number Start Date Medicare RHC Medicare RHC [id number] N/A [place] 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 [place] 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 [id number] N/A Medicare Part A Medicare - Lab/Xray [id number] N/A Medicare Part B Medicare Of [place] [id number] N/A [place] Medical Assistance Program [place] Medical Assistance Prog [id number] N/A Medicare Part A Medicare Part A [id number] N/A History of Encounters Visit Date Visit Type Provider 06/03/2016 Office visit ELOY BRITT 05/31/2016 Office visit ELOY BRITT 05/14/2016 Office visit ELOY BRITT 04/17/2016 Office visit ELOY BRITT 04/02/2016 Office visit ELOY BRITT 03/22/2016 [facility] Jhony Phelps MD 12/15/2015 Office visit ELOY BRITT 10/24/2015 [...] Voided ELOY AHUMADA PA 09/04/2012 Office visit LEOY AHUMADA PA 08/18/2012 Office visit ELOY AHUMADA [...]
--- OUTSIDE RECORDS SUMMARY | 2018-01-13 12:11 | XMS REPORT ---
Author Author ELOY AHUMADA [facility] Address [address] [place], [place] [address] Care Team Providers Care Acquisition Advisor Name Role Phone ELOY AHUMADA PCP Unavailable Allergies and Adverse Reactions Name Reaction Notes Depo-Medrol Pain, muscle spasms, insomnia Decadron Pain, Muscle spasms, insomnia Plan of Treatment Planned Activity Comments Planned Date Planned Time Plan/Goal BNP 05/15/2016 12:00 AM CMP 07/05/2016 12:00 AM CMP 07/12/2016 12:00 AM cervical pain 06/15/2015 11:00 AM [...] HC BMI BSA BMI Percentile O2 Sat(%) 07/18/2016 2:43:00 PM 118 mmHg 64 mmHg [...] Reviewed 01/24/2015 12:00 AM Toradol 60 Mg [facility]#1523-6645-11 Reviewed 03/25/2015 12:00 AM Toradol 60 Mg [facility]#0409-7004-69 Reviewed 04/06/2015 12:00 AM MRI NECK SPINE W/O DYE Reviewed 05/27/2015 12:00 AM Decadron, Per 1 Mg [facility]# [address]-28 Reviewed 05/27/2015 12:00 AM Depo-Medrol, Per 80 Mg [facility]#4518-4921-33 Reviewed 05/27/2015 12:00 AM Rocephin 1 gram [facility]#6568-6397-19 Reviewed 02/26/2011 12:00 AM THER/PROPH/DIAG INJ SC/IM Reviewed 02/26/2011 12:00 AM Decadron Inj.1mg-([facility]) [facility] #[id number] Reviewed 02/26/2011 12:00 AM Depo-Medrol 80 Mg Im/[facility] 0009-676292 Reviewed 12/15/2015 12:00 AM Rocephin 1 gram [facility]#2260-8141-09 Reviewed 06/03/2016 12:00 AM THERAPEUTIC PROPHYLACTIC/DX INJECTION SUBQ/IM Reviewed 06/03/2016 12:00 AM Decadron 8mg Injection, RHC Medicare Reviewed 06/27/2016 12:00 AM COMPREHEN METABOLIC PANEL Returned 06/27/2016 12:00 AM URINALYSIS AUTO W/SCOPE Returned 03/11/2012 12:00 AM THER/PROPH/DIAG INJ SC/IM Reviewed 03/11/2012 12:00 AM Decadron, Per 1 Mg [facility]# [address]-31 Reviewed 03/11/2012 12:00 AM Depo-Medrol, Per 80 Mg [facility]#6194-5572-59 Reviewed 03/11/2012 12:00 AM Rocephin 1 gram [facility]#5635-6544-39 Reviewed 04/11/2012 12:00 AM Flu Injection 3 Years And Above [facility]# [address]-46 [facility] Reviewed 10/27/2012 12:00 AM THER/PROPH/DIAG INJ SC/IM Reviewed 10/27/2012 12:00 AM Decadron, Per 1 Mg [facility]# [address]-17 Reviewed 10/27/2012 12:00 AM Depo-Medrol, Per 80 Mg [facility]#6883-6513-67 Reviewed 12/26/2012 12:00 AM COMPLETE CBC W/AUTO DIFF WBC Reviewed 12/26/2012 12:00 AM COMPREHEN METABOLIC PANEL Reviewed 12/26/2012 12:00 AM LIPID PANEL Reviewed 12/26/2012 12:00 AM ASSAY THYROID STIM HORMONE Reviewed 08/27/2013 12:00 AM THER/PROPH/DIAG INJ SC/IM Reviewed 08/27/2013 12:00 AM Toradol 60 Mg [facility]#8179-0018-91 Reviewed 12/01/2013 12:00 AM THER/PROPH/DIAG INJ SC/IM Reviewed 12/01/2013 12:00 AM Toradol 60 Mg [facility]#6320-9576-54 Reviewed 07/17/2010 12:00 AM THER/PROPH/DIAG INJ SC/IM Reviewed 07/17/2010 12:00 AM Decadron Inj.6mg-([facility]) [facility] #[id number] Reviewed 07/17/2010 12:00 AM Depo-Medrol 120 Mg Im/[facility] 0009-769831 Reviewed 04/21/2014 12:00 AM IMMUNIZATION ADMIN Reviewed 04/21/2014 12:00 AM THER/PROPH/DIAG INJ SC/IM Reviewed 04/21/2014 12:00 AM Decadron, Per 1 Mg [facility]# [address]-08 Reviewed 04/21/2014 12:00 AM Depo-Medrol, Per 80 Mg [facility]#7625-5731-57 Reviewed 05/14/2014 12:00 AM THER/PROPH/DIAG INJ SC/IM Reviewed 05/14/2014 12:00 AM Decadron, Per 1 Mg [facility]# [address]-69 Reviewed 05/14/2014 12:00 AM Depo-Medrol, Per 80 Mg [facility]#0957-3135-13 Reviewed 07/05/2014 12:00 AM THER/PROPH/DIAG INJ SC/IM Reviewed 07/05/2014 12:00 AM Decadron, Per 1 Mg [facility]# [address]-19 Reviewed 07/05/2014 12:00 AM Rocephin 1 gram [facility]#2013-2823-64 Reviewed Results Summary Data and Description Results [...] on supplemental oxygen Jul 18 2016 2:44PM Payers Insurance Name Company Name Plan Name Plan Number Policy Number Policy Group Number Start Date Medicare RHC Medicare C [id number] N/A [place] 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 - RHC [id number] N/A Medicare Part A Medicare - Lab/Xray [id number] N/A Medicare Part B Medicare Of [place] [id number] N/A [place] Medical Assistance Program [place] Medical Assistance Prog [id number] N/A Medicare Part A Medicare Part A [id number] N/A History of Encounters Visit Date Visit Type Provider 07/18/2016 Office visit ELOY BRITT 07/16/2016 Office visit ELOY AHUMADA PA 07/06/2016 Office visit ELOY AHUMADA PA 06/29/2016 Office visit ELOY AHUMADA PA 06/26/2016 Office visit ELOY AHUMADA PA 06/03/2016 Office visit ELOY AHUMADA PA 05/31/2016 Office visit ELOY AHUMADA PA 05/14/2016 Office visit ELOY AHUMADA PA 04/17/2016 Office visit ELOY BRITT 04/02/2016 Office visit ELOY AHUMADA PA 03/22/2016 [facility] Jhony Phelps [facility] 03/22/2016 [facility] Muk[facility] MD 12/15/2015 Office visit ELOY AHUMADA PA 10/24/2015 Office visit ELOY AHUMADA PA 10/11/2015 Office visit ELOY AHUMADA PA 07/05/2015 Office visit ELYO AHUMADA PA 06/09/2015 Office visit ELOY AHUMADA PA 05/12/2015 Office visit ELOY AHUMADA PA 03/25/2015 Office visit ELOY BRITT 01/28/2015 Office [...]
--- OUTSIDE RECORDS SUMMARY | 2018-01-13 12:12 | XMS REPORT ---
Author ELOY Fleming [facility] Address [address] [place], [place] [address] Care Team Providers Care Zipper Cutter Name Role Phone ELOY AHUMADA PCP Unavailable ELOY AHUMADA PreferredProvider Unavailable Allergies and Adverse Reactions Name Reaction Notes Depo-Medrol Pain, muscle spasms, insomnia Decadron Pain, Muscle spasms, insomnia Plan of Treatment Planned Activity Comments Planned Date Planned Time Plan/Goal BNP 05/15/2016 12:00 AM Injection,Subcutaneous/Intramuscul, RHC Medicare 09/07/2016 12:00 AM cervical pain 06/15/2015 11:00 AM [...] oral tablets,dose pack 08/29/2016 take as directed amoxicillin 500 mg oral tablet 09/07/2016 09/17/2016 take 1 tablet by oral route 4 times a day for 10 days Name Start Date Expiration [...] HC BMI BSA BMI Percentile O2 Sat(%) 09/07/2016 11:31:00 AM 122 mmHg 74 mmHg [...] Reviewed 01/24/2015 12:00 AM Toradol 60 Mg [facility]#8909-5384-49 Reviewed 03/25/2015 12:00 AM Toradol 60 Mg [facility]#6090-2824-76 Reviewed 04/06/2015 12:00 AM MRI NECK SPINE W/O DYE Reviewed 05/27/2015 12:00 AM Decadron, Per 1 Mg [facility]# [address]-63 Reviewed 05/27/2015 12:00 AM Depo-Medrol, Per 80 Mg [facility]#3048-9687-54 Reviewed 05/27/2015 12:00 AM Rocephin 1 gram [facility]#4961-6420-57 Reviewed 02/26/2011 12:00 AM THER/PROPH/DIAG INJ SC/IM Reviewed 02/26/2011 12:00 AM Decadron Inj.1mg-([facility]) [facility] #[id number] Reviewed 02/26/2011 12:00 AM Depo-Medrol 80 Mg Im/[facility] 0009-795883 Reviewed 12/15/2015 12:00 AM Rocephin 1 gram [facility]#3285-7041-80 Reviewed 06/03/2016 12:00 AM THERAPEUTIC PROPHYLACTIC/DX INJECTION SUBQ/IM Reviewed 06/03/2016 12:00 AM Decadron 8mg Injection, RHC Medicare Reviewed 06/27/2016 12:00 AM COMPREHEN METABOLIC PANEL Returned 06/27/2016 12:00 AM URINALYSIS AUTO W/SCOPE Returned 07/05/2016 12:00 AM COMPREHEN METABOLIC PANEL Reviewed 07/12/2016 12:00 AM COMPREHEN METABOLIC PANEL Reviewed 07/23/2016 12:00 AM COMPREHEN METABOLIC PANEL Reviewed 03/11/2012 12:00 AM THER/PROPH/DIAG INJ SC/IM Reviewed 03/11/2012 12:00 AM Decadron, Per 1 Mg [facility]# [address]-67 Reviewed 03/11/2012 12:00 AM Depo-Medrol, Per 80 Mg [facility]#2054-5689-17 Reviewed 03/11/2012 12:00 AM Rocephin 1 gram [facility]#6176-4485-34 Reviewed 04/11/2012 12:00 AM Flu Injection 3 Years And Above [facility]# [address]-84 [facility] Reviewed 10/27/2012 12:00 AM THER/PROPH/DIAG INJ SC/IM Reviewed 10/27/2012 12:00 AM Decadron, Per 1 Mg [facility]# [address]-12 Reviewed 10/27/2012 12:00 AM Depo-Medrol, Per 80 Mg [facility]#2783-0056-70 Reviewed 12/26/2012 12:00 AM COMPLETE CBC W/AUTO DIFF WBC Reviewed 12/26/2012 12:00 AM COMPREHEN METABOLIC PANEL Reviewed 12/26/2012 12:00 AM LIPID PANEL Reviewed 12/26/2012 12:00 AM ASSAY THYROID STIM HORMONE Reviewed 08/27/2013 12:00 AM THER/PROPH/DIAG INJ SC/IM Reviewed 08/27/2013 12:00 AM Toradol 60 Mg [facility]#1308-1182-64 Reviewed 12/01/2013 12:00 AM THER/PROPH/DIAG INJ SC/IM Reviewed 12/01/2013 12:00 AM Toradol 60 Mg [facility]#2046-6102-36 Reviewed 07/17/2010 12:00 AM THER/PROPH/DIAG INJ SC/IM Reviewed 07/17/2010 12:00 AM Decadron Inj.6mg-([facility]) [facility] #[id number] Reviewed 07/17/2010 12:00 AM Depo-Medrol 120 Mg Im/[facility] 0009-285262 Reviewed 04/21/2014 12:00 AM IMMUNIZATION ADMIN Reviewed 04/21/2014 12:00 AM THER/PROPH/DIAG INJ SC/IM Reviewed 04/21/2014 12:00 AM Decadron, Per 1 Mg [facility]# [address]-94 Reviewed 04/21/2014 12:00 AM Depo-Medrol, Per 80 Mg [facility]#1291-0349-36 Reviewed 05/14/2014 12:00 AM THER/PROPH/DIAG INJ SC/IM Reviewed 05/14/2014 12:00 AM Decadron, Per 1 Mg [facility]# [address]-47 Reviewed 05/14/2014 12:00 AM Depo-Medrol, Per 80 Mg [facility]#1271-6813-51 Reviewed 07/05/2014 12:00 AM THER/PROPH/DIAG INJ SC/IM Reviewed 07/05/2014 12:00 AM Decadron, Per 1 Mg [facility]# [address]-01 Reviewed 07/05/2014 12:00 AM Rocephin 1 gram [facility]#3733-1323-64 Reviewed Results Summary Data and Description Results 01/24/2015 4:55 PM WBC 10.9 RBC 4.97 HGB 14.70 g/dLHCT 46.80 %MCV 94.0 fLMCH 29.60 pgHC 31.40 g/dLRDW SD 48 RDW CV 13.90 [...] Panic attacks b 2016 11:22AM Peripheral edema Feb 2016 11:22AM [...] on supplemental oxygen Sep 07 2016 11:32AM Payers Insurance Name Company Name Plan Name Plan Number Policy Number Policy Group Number Start Date Medicare RHC Medicare RHC [id number] N/A [place] 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 - RHC [id number] N/A Medicare Part A Medicare - Lab/Xray [id number] N/A Medicare Part B Medicare Of [place] [id number] N/A [place] Medical Assistance Program [place] Medical Assistance Prog [id number] N/A Medicare Part A Medicare Part A [id number] N/A History of Encounters Visit Date Visit Type Provider 09/07/2016 Office visit ELOY BRITT 09/03/2016 Office [...] visit ELOY BRITT 05/14/2016 Office visit ELOY AHUMADA PA 04/17/2016 Office visit ELOY AHUMADA PA 04/02/2016 Office visit ELOY AHUMADA PA 03/22/2016 Hospital Jhony Phelps MD 03/22/2016 [facility] Mukul Lopez MD 12/15/2015 Office [...]
--- OUTSIDE RECORDS SUMMARY | 2018-01-13 12:14 | XMS REPORT ---
Author ELOY Fleming [facility] Address [address] [place], [place] [address] Care Team Providers Care Applications Development Analyst Name Role Phone ELOY AHUMADA PCP Unavailable [...] by oral route 4 times per day Symbicort 160-4.5 mcg/actuation inhalation HFA aerosol inhaler 07/27/2016 inhale 2 puffs by inhalation route 2 times per day in the morning and evening spironolactone 50 mg oral tablet 08/20/2016 11/18/2016 take 1 tablet (50 mg) by oral route once daily for 30 days Medrol ([place]) 4 mg oral tablets,dose pack 08/29/2016 take as directed potassium chloride 10 mEq oral tablet,ER particles/crystals [...] oral route every 6 hours as needed furosemide 20 mg oral tablet 11/01/2016 As directed Xanax 0.5 mg oral tablet 11/01/2016 take [...] HC BMI BSA BMI Percentile O2 Sat(%) 11/02/2016 8:36:00 AM 110 mmHg 58 mmHg [...] 60 Mg [facility]#0455-7022-11 Reviewed 03/25/2015 12:00 AM Toradol 60 Mg [facility]#8267-1182-96 Reviewed 04/06/2015 12:00 AM MRI NECK SPINE W/O DYE Reviewed 05/27/2015 12:00 AM Decadron, Per 1 Mg [facility]# [address]-30 Reviewed 05/27/2015 12:00 AM Depo-Medrol, Per 80 Mg [facility]#8077-4278-18 Reviewed 05/27/2015 12:00 AM Rocephin 1 gram [facility]#4950-1615-83 Reviewed 02/26/2011 12:00 AM THER/PROPH/DIAG INJ SC/IM Reviewed 02/26/2011 12:00 AM Decadron Inj.1mg-([facility]) [facility] #[id number] Reviewed 02/26/2011 12:00 AM Depo-Medrol 80 Mg Im/[facility] [id number] Reviewed 12/15/2015 12:00 AM Rocephin 1 gram [facility]#2956-4702-36 Reviewed 06/03/2016 12:00 AM THERAPEUTIC PROPHYLACTIC/DX INJECTION [...] 20 Mg [facility]#0794-9957-82 RHC Medicare Reviewed 03/11/2012 12:00 AM THER/PROPH/DIAG INJ SC/IM Reviewed 03/11/2012 12:00 AM Decadron, Per 1 Mg [facility]# [address]-76 Reviewed 03/11/2012 12:00 AM Depo-Medrol, Per 80 Mg [facility]#3171-6265-77 Reviewed 03/11/2012 12:00 AM Rocephin 1 gram [facility]#5067-7188-18 Reviewed 04/11/2012 12:00 AM Flu Injection 3 Years And Above [facility]# [address]-52 [facility] Reviewed 10/27/2012 12:00 AM THER/PROPH/DIAG INJ SC/IM Reviewed 10/27/2012 12:00 AM Decadron, Per 1 Mg [facility]# [address]-89 Reviewed 10/27/2012 12:00 AM Depo-Medrol, Per 80 Mg [facility]#5311-3593-24 Reviewed 12/26/2012 12:00 AM COMPLETE CBC W/AUTO DIFF WBC Reviewed 12/26/2012 12:00 AM COMPREHEN METABOLIC PANEL Reviewed 12/26/2012 12:00 AM LIPID PANEL Reviewed 12/26/2012 12:00 AM ASSAY THYROID STIM HORMONE Reviewed 08/27/2013 12:00 AM THER/PROPH/DIAG INJ SC/IM Reviewed 08/27/2013 12:00 AM Toradol 60 Mg [facility]#4514-1191-20 Reviewed 12/01/2013 12:00 AM THER/PROPH/DIAG INJ SC/IM Reviewed 12/01/2013 12:00 AM Toradol 60 Mg [facility]#7918-3605-59 Reviewed 07/17/2010 12:00 AM THER/PROPH/DIAG INJ SC/IM Reviewed 07/17/2010 12:00 AM Decadron Inj.6mg-([facility]) [facility] #[id number] Reviewed 07/17/2010 12:00 AM Depo-Medrol 120 Mg Im/[facility] [id number] Reviewed 04/21/2014 12:00 AM IMMUNIZATION ADMIN Reviewed 04/21/2014 12:00 AM THER/PROPH/DIAG INJ SC/IM Reviewed 04/21/2014 12:00 AM Decadron, Per 1 Mg [facility]# [address]-07 Reviewed 04/21/2014 12:00 AM Depo-Medrol, Per 80 Mg [facility]#9938-5763-88 Reviewed 05/14/2014 12:00 AM THER/PROPH/DIAG INJ SC/IM Reviewed 05/14/2014 12:00 AM Decadron, Per 1 Mg [facility]# [address]-42 Reviewed 05/14/2014 12:00 AM Depo-Medrol, Per 80 Mg [facility]#1500-[address]-92 Reviewed 07/05/2014 12:00 AM THER/PROPH/DIAG INJ SC/IM Reviewed 07/05/2014 12:00 AM Decadron, Per 1 Mg [facility]# [address]-90 Reviewed 07/05/2014 12:00 AM Rocephin 1 gram [facility]#2094-7015-91 Reviewed Results Summary Date and Description Results [...] breath on exertion Nov 02 2016 8:37AM Payers Insurance Name Company Name Plan Name Plan Number Policy Number Policy Group Number Start Date Medicare RHC Medicare [facility] [id number] N/A [place] 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
--- OUTSIDE RECORDS SUMMARY | 2018-01-13 12:17 | XMS REPORT ---
Author Author ELOY AHUMADA [facility] Address [address] [place], [place] [id number] Care Team Providers Care Tipple Tender Name Role Phone ELOY AHUMADA PCP ELOY AHUMADA PreferredProvider Allergies and Adverse Reactions Name Reaction Notes Depo-Medrol Pain, muscle spasms, insomnia Decadron Pain, Muscle spasms, insomnia Plan of Treatment Planned Activity Comments Planned Date Planned Time Plan/Goal BNP 05/15/2016 12:00 AM CMP 10/18/2016 12:00 AM cervical pain 06/15/2015 11:00 AM CBC with Differential 10/28/2017 12:00 AM CMP 10/28/2017 12:00 AM BNP 10/28/2017 12:00 AM Medications Active Name Start Date [...] 20 mg oral tablet 11/28/2016 As directed Zithromax Z-Jerome 250 mg oral tablet 04/04/2017 [...] HC BMI BSA BMI Percentile O2 Sat(%) 10/28/2017 9:50:00 AM 128 mmHg 74 mmHg [...] 12:00 AM Toradol 60 Mg [facility]#8187-8467-31 Reviewed 03/25/2015 12:00 AM Toradol 60 Mg [facility]#2442-6405-61 Reviewed 04/06/2015 12:00 AM MRI NECK SPINE W/O DYE Reviewed 05/27/2015 12:00 AM Decadron, Per 1 Mg [facility]# [address]-63 Reviewed 05/27/2015 12:00 AM Depo-Medrol, Per 80 Mg [facility]#8999-7378-03 Reviewed 05/27/2015 12:00 AM Rocephin 1 gram [facility]#7538-4508-09 Reviewed 02/26/2011 12:00 AM THER/PROPH/DIAG INJ SC/IM Reviewed 02/26/2011 12:00 AM Decadron Inj.1mg-([facility]) [facility] #[id number] Reviewed 02/26/2011 12:00 AM Depo-Medrol 80 Mg Im/[facility] [id number] Reviewed 12/15/2015 12:00 AM Rocephin 1 gram [facility]#9760-5251-89 Reviewed 06/03/2016 12:00 AM THERAPEUTIC PROPHYLACTIC/DX INJECTION [...] 12:00 AM Lasix, Up to 20 Mg [facility]#7970-2212-39 [facility] Medicare Reviewed 11/16/2016 12:00 AM ASSAY OF [...] AM Decadron, Per 1 Mg [facility]# [address]-16 Reviewed 03/11/2012 12:00 AM Depo-Medrol, Per 80 Mg [facility]#9765-5885-37 Reviewed 03/11/2012 12:00 AM Rocephin 1 gram [facility]#4265-7779-63 Reviewed 04/11/2012 12:00 AM Flu Injection 3 Years And Above [facility]# [address]-40 [facility] Reviewed 05/08/2017 12:00 AM THERAPEUTIC PROPHYLACTIC/DX INJECTION SUBQ/IM Reviewed 05/08/2017 12:00 AM Toradol 60 Mg Injection, RHC Medicare Reviewed 07/31/2017 12:00 AM ASSAY OF NATRIURETIC PEPTIDE Returned 10/27/2012 12:00 AM THER/PROPH/DIAG INJ SC/IM Reviewed 10/27/2012 12:00 AM Decadron, Per 1 Mg [facility]# [address]-02 Reviewed 10/27/2012 12:00 AM Depo-Medrol, Per 80 Mg [facility]#4499-3104-15 Reviewed 12/26/2012 12:00 AM COMPLETE CBC W/AUTO DIFF WBC Reviewed 12/26/2012 12:00 AM COMPREHEN METABOLIC PANEL Reviewed 12/26/2012 12:00 AM LIPID PANEL Reviewed 12/26/2012 12:00 AM ASSAY THYROID STIM HORMONE Reviewed 08/27/2013 12:00 AM THER/PROPH/DIAG INJ SC/IM Reviewed 08/27/2013 12:00 AM Toradol 60 Mg [facility]#3361-0367-15 Reviewed 12/01/2013 12:00 AM THER/PROPH/DIAG INJ SC/IM Reviewed 12/01/2013 12:00 AM Toradol 60 Mg [facility]#5997-9817-57 Reviewed 07/17/2010 12:00 AM THER/PROPH/DIAG INJ SC/IM Reviewed 07/17/2010 12:00 AM Decadron Inj.6mg-([facility]) [facility] #[id number] Reviewed 07/17/2010 12:00 AM Depo-Medrol 120 Mg Im/[facility] [id number] Reviewed 04/21/2014 12:00 AM IMMUNIZATION ADMIN Reviewed 04/21/2014 12:00 AM THER/PROPH/DIAG INJ SC/IM Reviewed 04/21/2014 12:00 AM Decadron, Per 1 Mg [facility]# [address]-91 Reviewed 04/21/2014 12:00 AM Depo-Medrol, Per 80 Mg [facility]#8870-2568-88 Reviewed 05/14/2014 12:00 AM THER/PROPH/DIAG INJ SC/IM Reviewed 05/14/2014 12:00 AM Decadron, Per 1 Mg [facility]# [address]-21 Reviewed 05/14/2014 12:00 AM Depo-Medrol, Per 80 Mg [facility]#3703-4318-86 Reviewed 07/05/2014 12:00 AM THER/PROPH/DIAG INJ SC/IM Reviewed 07/05/2014 12:00 AM Decadron, Per 1 Mg [facility]# [address]-98 Reviewed 07/05/2014 12:00 AM Rocephin 1 gram [facility]#3151-8657-67 Reviewed Results Summary Date and Description Results [...] Ear pressure, bilateral Oct 28 2017 9:51AM Payers Insurance Name Company Name Plan Name Plan Number Policy Number Policy Group Number Start Date Medicare RHC Medicare RHC [id number] N/A [place] [employer] [facility] - RHC [id number] N/A Medicare Part A Medicare - Lab/Xray [id number] N/A Medicare Part B Medicare Of [place] [id number] N/A [place] Medical Assistance Program [place] Medical Assistance Prog [id number] N/A Medicare Part A Medicare Part A [id number] N/A History of Encounters Visit Date Visit Type Provider 10/28/2017 Office visit ELOY BRITT 10/22/2017 Office visit ELOY BRITT 09/03/2017 Office visit ELOY BRITT 08/20/2017 Office visit ELOY BRITT 07/31/2017 Office visit ELOY AHUMADA PA 07/05/2017 [...] ELOY AHUMADA PA 12/17/2016 Office visit ELOY BRITT 12/10/2016 [facility] Dwayne Lopez MD 12/05/2016 Office visit ELOY AHUMADA PA 12/03/2016 Office visit ELOY BRITT 11/30/2016 Office visit ELOY AHUMADA PA 11/29/2016 Office visit ELOY BRITT 11/16/2016 Office visit ELOY AHUMADA PA 11/01/2016 Office visit ELOY BRITT 10/25/2016 Office visit ELOY AHUMADA PA 10/18/2016 [...] BRITT 03/22/2016 Hospital Jhony Phelps MD 03/22/2016 [facility] Mukul Lopez MD 12/15/2015 Office visit ELOY AHUMADA PA 10/24/2015 Office visit ELOY AHUMADA PA 10/11/2015 Office visit ELOY AHUMADA PA 07/05/2015 Office visit ELOY AHUMADA PA 06/09/2015 Office visit ELOY HAUMADA PA 05/12/2015 Office visit ELOY AHUMADA PA 03/25/2015 Office visit ELOY BRITT 01/28/2015 Office visit ELOY AHUMADA PA 01/24/2015 [...]
--- OUTSIDE RECORDS SUMMARY | 2018-01-13 12:19 | XMS REPORT ---
Author Author ELOY AHUMADA [facility] Address [address] [place], [place] [id number] Care Team Providers Care Narcotics Detective Name Role Phone ELOY AHUMADA PCP ELOY [...] Reviewed 01/24/2015 12:00 AM Toradol 60 Mg [facility]#7641-1530-47 Reviewed 03/25/2015 12:00 AM Toradol 60 Mg [facility]#7851-4803-25 Reviewed 04/06/2015 12:00 AM MRI NECK SPINE W/O DYE Reviewed 05/27/2015 12:00 AM Decadron, Per 1 Mg [facility]# [address]-94 Reviewed 05/27/2015 12:00 AM Depo-Medrol, Per 80 Mg [facility]#7294-2485-86 Reviewed 05/27/2015 12:00 AM Rocephin 1 gram [facility]#8889-8505-83 Reviewed 02/26/2011 12:00 AM THER/PROPH/DIAG INJ SC/IM Reviewed 02/26/2011 12:00 AM Decadron Inj.1mg-([facility]) [facility] #[id number] Reviewed 02/26/2011 12:00 AM Depo-Medrol 80 Mg Im/[facility] [id number] Reviewed 12/15/2015 12:00 AM Rocephin 1 gram [facility]#2089-9701-89 Reviewed 06/03/2016 12:00 AM THERAPEUTIC PROPHYLACTIC/DX INJECTION [...] 12:00 AM Lasix, Up to 20 Mg [facility]#9361-7952-42 [facility] Medicare Reviewed 11/16/2016 12:00 AM ASSAY OF [...] 1 Mg [facility]# [address]-73 Reviewed 03/11/2012 12:00 AM Depo-Medrol, Per 80 Mg [facility]#2034-9644-91 Reviewed 03/11/2012 12:00 AM Rocephin 1 gram [facility]#3275-6112-68 Reviewed 04/11/2012 12:00 AM Flu Injection 3 Years And Above [facility]# [address]-58 [facility] Reviewed 05/08/2017 12:00 AM THERAPEUTIC PROPHYLACTIC/DX INJECTION SUBQ/IM Reviewed 05/08/2017 12:00 AM Toradol 60 Mg Injection, RHC Medicare Reviewed 07/31/2017 12:00 AM ASSAY OF NATRIURETIC PEPTIDE Returned 10/27/2012 12:00 AM THER/PROPH/DIAG INJ SC/IM Reviewed 10/27/2012 12:00 AM Decadron, Per 1 Mg [facility]# [address]-78 Reviewed 10/27/2012 12:00 AM Depo-Medrol, Per 80 Mg [facility]#2075-9328-80 Reviewed 12/26/2012 12:00 AM COMPLETE CBC W/AUTO DIFF WBC Reviewed 12/26/2012 12:00 AM COMPREHEN METABOLIC PANEL Reviewed 12/26/2012 12:00 AM LIPID PANEL Reviewed 12/26/2012 12:00 AM ASSAY THYROID STIM HORMONE Reviewed 08/27/2013 12:00 AM THER/PROPH/DIAG INJ SC/IM Reviewed 08/27/2013 12:00 AM Toradol 60 Mg [facility]#4392-0440-49 Reviewed 12/01/2013 12:00 AM THER/PROPH/DIAG INJ SC/IM Reviewed 12/01/2013 12:00 AM Toradol 60 Mg [facility]#4904-4938-48 Reviewed 07/17/2010 12:00 AM THER/PROPH/DIAG INJ SC/IM Reviewed 07/17/2010 12:00 AM Decadron Inj.6mg-([facility]) [facility] #[id number] Reviewed 07/17/2010 12:00 AM Depo-Medrol 120 Mg Im/[facility] 0009-371679 Reviewed 04/21/2014 12:00 AM IMMUNIZATION ADMIN Reviewed 04/21/2014 12:00 AM THER/PROPH/DIAG INJ SC/IM Reviewed 04/21/2014 12:00 AM Decadron, Per 1 Mg [facility]# [address]-46 Reviewed 04/21/2014 12:00 AM Depo-Medrol, Per 80 Mg [facility]#5018-4465-49 Reviewed 05/14/2014 12:00 AM THER/PROPH/DIAG INJ SC/IM Reviewed 05/14/2014 12:00 AM Decadron, Per 1 Mg [facility]# [address]-74 Reviewed 05/14/2014 12:00 AM Depo-Medrol, Per 80 Mg [facility]#4847-6180-62 Reviewed 07/05/2014 12:00 AM THER/PROPH/DIAG INJ SC/IM Reviewed 07/05/2014 12:00 AM Decadron, Per 1 Mg [facility]# [address]-88 Reviewed 07/05/2014 12:00 AM Rocephin 1 gram [facility]#0112-5447-28 Reviewed Results Summary Date and Description Results [...] Congestive heart failure Oct 28 2017 10:44AM Payers Insurance Name Company Name Plan Name Plan Number Policy Number Policy Group Number Start Date Medicare RHC Medicare RHC [id number] N/A [place] [employer] 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 - RHC [id number] N/A Medicare Part A Medicare - Lab/Xray [id number] N/A Medicare Part B Medicare Of [place] [id number] N/A [place] Medical Assistance [facility] Medical Assistance Prog [id number] N/A Medicare Part A Medicare Part A [id number] N/A History of Encounters Visit Date Visit [...] 12/17/2016 Office visit ELOY AHUMADA PA 12/10/2016 [facility] Dwayne Lopez MD 12/05/2016 Office visit ELOY AHUMADA PA 12/03/2016 Office visit ELOY AHUMADA PA 11/30/2016 Office visit ELOY AHUMADA PA 11/29/2016 Office visit ELOY BRITT 11/16/2016 Office visit ELOY AHUMADA PA 11/01/2016 Office visit ELOY AHUMADA PA 10/25/2016 Office visit ELOY AHUMADA PA 10/18/2016 Office visit ELOY AHUMADA PA 10/04/2016 Office visit ELOY BRITT 09/17/2016 Office visit ELOY AHUMADA PA 09/07/2016 [...]
--- OUTSIDE RECORDS SUMMARY | 2018-01-13 12:21 | XMS REPORT ---
Author ELOY [facility] Address [address] [place], [place] [address] Care Team Providers Care Police Lieutenant Patrol Name Role Phone ELOY AHUMADA PCP Unavailable [...] as needed Levaquin 500 mg oral tablet 04/17/2016 04/27/2016 take 1 tablet (500 mg) by oral route once daily for 10 days Ativan 1 mg oral tablet 04/17/2016 take 1 tablet by oral route 3 times a day PRN anxiety albuterol sulfate 2.5 mg /3 mL (0.083 %) inhalation solution for nebulization 04/17/2016 used in Small Volume Nebulizer QID PRN Name Start Date Expiration Date SIG Comments [...] atenolol 25 mg oral tablet 08/27/2013 11/25/2013 1 BID dicyclomine 10 mg oral capsule 11/12/2013 [...] HC BMI BSA BMI Percentile O2 Sat(%) 04/17/2016 12:43:00 PM 170 mmHg 85 mmHg [...] AM Toradol 60 Mg [facility]#4166-7659-74 Reviewed 03/25/2015 12:00 AM Toradol 60 Mg [facility]#4695-9598-42 Reviewed 04/06/2015 12:00 AM MRI NECK SPINE W/O DYE Reviewed 05/27/2015 12:00 AM Decadron, Per 1 Mg [facility]# [address]-93 Reviewed 05/27/2015 12:00 AM Depo-Medrol, Per 80 Mg [facility]#7859-3259-17 Reviewed 05/27/2015 12:00 AM Rocephin 1 gram [place]#8284-0641-26 Reviewed 02/26/2011 12:00 AM THER/PROPH/DIAG INJ SC/IM Reviewed 02/26/2011 12:00 AM Decadron Inj.1mg-([facility]) [facility] #[id number] Reviewed 02/26/2011 12:00 AM Depo-Medrol 80 Mg Im/[facility] [id number] Reviewed 12/15/2015 12:00 AM Rocephin 1 gram [facility]#0906-6529-57 Reviewed 03/11/2012 12:00 AM THER/PROPH/DIAG INJ SC/IM Reviewed 03/11/2012 12:00 AM Decadron, Per 1 Mg [facility]# [address]-59 Reviewed 03/11/2012 12:00 AM Depo-Medrol, Per 80 Mg [facility]#2165-7290-83 Reviewed 03/11/2012 12:00 AM Rocephin 1 gram [facility]#0280-9634-62 Reviewed 04/11/2012 12:00 AM Flu Injection 3 Years And Above [facility]# [address]-64 C Reviewed 10/27/2012 12:00 AM THER/PROPH/DIAG INJ SC/IM Reviewed 10/27/2012 12:00 AM Decadron, Per 1 Mg [facility]# [address]-77 Reviewed 10/27/2012 12:00 AM Depo-Medrol, Per 80 Mg [facility]#8787-3305-04 Reviewed 12/26/2012 12:00 AM COMPLETE CBC W/AUTO DIFF WBC Reviewed 12/26/2012 12:00 AM COMPREHEN METABOLIC PANEL Reviewed 12/26/2012 12:00 AM LIPID PANEL Reviewed 12/26/2012 12:00 AM ASSAY THYROID STIM HORMONE Reviewed 08/27/2013 12:00 AM THER/PROPH/DIAG INJ SC/IM Reviewed 08/27/2013 12:00 AM Toradol 60 Mg [facility]#5641-1712-71 Reviewed 12/01/2013 12:00 AM THER/PROPH/DIAG INJ SC/IM Reviewed 12/01/2013 12:00 AM Toradol 60 Mg [facility]#0694-5600-51 Reviewed 07/17/2010 12:00 AM THER/PROPH/DIAG INJ SC/IM Reviewed 07/17/2010 12:00 AM Decadron Inj.6mg-([facility]) [facility] #[id number] Reviewed 07/17/2010 12:00 AM Depo-Medrol 120 Mg Im/[facility] Gerardo [facility] 0009-705007 Reviewed 04/21/2014 12:00 AM IMMUNIZATION ADMIN Reviewed 04/21/2014 12:00 AM THER/PROPH/DIAG INJ SC/IM Reviewed 04/21/2014 12:00 AM Decadron, Per 1 Mg [facility]# [address]-23 Reviewed 04/21/2014 12:00 AM Depo-Medrol, Per 80 Mg [facility]#3114-7671-42 Reviewed 05/14/2014 12:00 AM THER/PROPH/DIAG INJ SC/IM Reviewed 05/14/2014 12:00 AM Decadron, Per 1 Mg [facility]# [address]-66 Reviewed 05/14/2014 12:00 AM Depo-Medrol, Per 80 Mg [facility]#0868-7913-89 Reviewed 07/05/2014 12:00 AM THER/PROPH/DIAG INJ SC/IM Reviewed 07/05/2014 12:00 AM Decadron, Per 1 Mg [facility]# [address]-94 Reviewed 07/05/2014 12:00 AM Rocephin 1 gram [facility]#9076-0209-20 Reviewed Results Summary Data and Description Results [...] Recurrent Panic attacks Apr 17 2016 12:44PM Payers Insurance Name Company Name Plan Name Plan Number Policy Number Policy Group Number Start Date Medicare Part A Medicare RHC [id number] N/A [place] Surgery Manager Prog - RHC [place] Surgery Manager Prog - RHC [id number] N/A Medicare Part A Medicare - Lab/Xray [id number] N/A Medicare Part B Medicare Of [place] [id number] N/A [place] Medical Assistance Program [place] Medical Assistance Prog [id number] N/A Medicare Part A Medicare Part A [id number] N/A History of Encounters Visit Date Visit Type Provider 04/17/2016 Office visit ELOY BRITT 04/02/2016 Office visit ELOY BRITT 03/22/2016 [facility] Jhony Phelps MD 03/22/2016 Office visit ELOY BRITT 12/15/2015 Office [...]
--- OUTSIDE RECORDS SUMMARY | 2018-01-13 12:22 | XMS REPORT ---
Author Author ELOY AHUMADA [facility] Address [address] [place], [place] [address] Care Team Providers Care English Language Learner Tutor Name Role Phone ELOY AHUMADA PCP Unavailable [...] Disease Active 08/31/2013 Essential hypertension Active 03/06/2014 Vital Signs Date Time BP-Sys(mm[Hg] [...] 02/26/2011 12:00 AM Decadron Inj.1mg-([facility]) [facility] 2] #[id number] Reviewed 02/26/2011 12:00 AM Depo-Medrol 80 Mg Im/[facility] Gerardo [facility] [id number] Reviewed 03/11/2012 12:00 AM THER/PROPH/DIAG INJ SC/IM Reviewed 03/11/2012 12:00 AM Decadron, Per 1 Mg [facility]# [address]-75 Reviewed 03/11/2012 12:00 AM Depo-Medrol, Per 80 Mg [facility]#9858-9508-48 Reviewed 03/11/2012 12:00 AM Rocephin 1 gram [facility]#9662-4972-33 Reviewed 04/11/2012 12:00 AM Flu Injection 3 Years And Above [facility]# [address]-50 RHC Reviewed 10/27/2012 12:00 AM THER/PROPH/DIAG INJ SC/IM Reviewed 10/27/2012 12:00 AM Decadron, Per 1 Mg [facility]# [address]-44 Reviewed 10/27/2012 12:00 AM Depo-Medrol, Per 80 Mg [facility]#8948-5303-05 Reviewed 12/26/2012 12:00 AM COMPLETE CBC W/AUTO DIFF WBC Reviewed 12/26/2012 12:00 AM COMPREHEN METABOLIC PANEL Reviewed 12/26/2012 12:00 AM LIPID PANEL Reviewed 12/26/2012 12:00 AM ASSAY THYROID STIM HORMONE Reviewed 08/27/2013 12:00 AM THER/PROPH/DIAG INJ SC/IM Reviewed 08/27/2013 12:00 AM Toradol 60 Mg [facility]#6059-7632-95 Reviewed 12/01/2013 12:00 AM THER/PROPH/DIAG INJ SC/IM Reviewed 12/01/2013 12:00 AM Toradol 60 Mg [facility]#0421-3905-20 Reviewed 07/17/2010 12:00 AM THER/PROPH/DIAG INJ SC/IM Reviewed 07/17/2010 12:00 AM Decadron Inj.6mg-([facility]) [facility][Note 2] #[id number] Reviewed 07/17/2010 12:00 AM Depo-Medrol 120 Mg Im/[facility] Gerardo [facility] [id number] Reviewed 04/21/2014 12:00 AM IMMUNIZATION ADMIN Reviewed 04/21/2014 12:00 AM THER/PROPH/DIAG INJ SC/IM Reviewed 04/21/2014 12:00 AM Decadron, Per 1 Mg [facility]# [address]-40 Reviewed 04/21/2014 12:00 AM Depo-Medrol, Per 80 Mg [facility]#2858-7516-23 Reviewed 05/14/2014 12:00 AM THER/PROPH/DIAG INJ SC/IM Reviewed 05/14/2014 12:00 AM Decadron, Per 1 Mg [facility]# [address]-71 Reviewed 05/14/2014 12:00 AM Depo-Medrol, Per 80 Mg [facility]#1759-7975-58 Reviewed 07/05/2014 12:00 AM THER/PROPH/DIAG INJ SC/IM Reviewed 07/05/2014 12:00 AM Decadron, Per 1 Mg [facility]# [address]-94 Reviewed 07/05/2014 12:00 AM Rocephin 1 gram [facility]#4020-7622-13 Reviewed Results Summary Data and Description Results [...] Pain Jan 17 2010 9:32AM Essential hypertension 03/06/2014 Cough Jul 17 2010 11:15AM Bronchitis, [...] Date Medicare Part A Medicare Part A [id number] N/A [place] [employer] 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
--- OUTSIDE RECORDS SUMMARY | 2018-01-13 12:25 | XMS REPORT ---
Author Author ELOY AHUMADA [facility] Address [address] [place], [place] [address] Care Team Providers Care Corporate Recruiter Name Role Phone ELOY AHUMADA PCP ELOY [...] oral route once daily for 10 days amoxicillin 500 mg oral capsule 05/30/2017 take 1 capsule (500 mg) by oral route 3 times per day for 10 days Monistat 7 2 % (100 mg)- 2 % (9 gram) vaginal comb pack,prefill appl, cream 06/06/2017 use as directed Name Start Date Expiration Date [...] HC BMI BSA BMI Percentile O2 Sat(%) 07/05/2017 12:32:00 PM 136 mmHg 74 mmHg 97 bpm 18 rpm 98.4 F 224 lbs 62 in 40.97 kg/m2 2.11 m2 98 % 05/08/2017 3:30:00 PM 126 mmHg [...] 60 Mg [facility]#9638-6947-50 Reviewed 03/25/2015 12:00 AM Toradol 60 Mg [facility]#1105-7218-70 Reviewed 04/06/2015 12:00 AM MRI NECK SPINE W/O DYE Reviewed 05/27/2015 12:00 AM Decadron, Per 1 Mg [facility]# [address]-45 Reviewed 05/27/2015 12:00 AM Depo-Medrol, Per 80 Mg [facility]#8375-2001-66 Reviewed 05/27/2015 12:00 AM Rocephin 1 gram [facility]#4374-6702-30 Reviewed 02/26/2011 12:00 AM THER/PROPH/DIAG INJ SC/IM Reviewed 02/26/2011 12:00 AM Decadron Inj.1mg-([facility]) [facility] #[id number] Reviewed 02/26/2011 12:00 AM Depo-Medrol 80 Mg Im/[facility] [id number] Reviewed 12/15/2015 12:00 AM Rocephin 1 gram [facility]#0483-4261-73 Reviewed 06/03/2016 12:00 AM THERAPEUTIC PROPHYLACTIC/DX INJECTION SUBQ/IM Reviewed 06/03/2016 12:00 AM Decadron 8mg Injection, [facility] Medicare Reviewed 06/27/2016 12:00 AM COMPREHEN METABOLIC PANEL Returned 06/27/2016 12:00 AM URINALYSIS AUTO W/SCOPE Returned 07/05/2016 12:00 AM COMPREHEN METABOLIC PANEL Reviewed 07/12/2016 12:00 AM COMPREHEN METABOLIC PANEL Reviewed 07/23/2016 12:00 AM COMPREHEN METABOLIC PANEL Reviewed 09/07/2016 12:00 AM THERAPEUTIC PROPHYLACTIC/DX INJECTION SUBQ/IM Reviewed 09/07/2016 12:00 AM Rocephin 1 gram Injection, [facility] Medicare Reviewed 09/03/2016 12:00 AM THERAPEUTIC PROPHYLACTIC/DX INJECTION SUBQ/IM Reviewed 09/03/2016 12:00 AM Rocephin 1 gram Injection, [facility] Medicare Reviewed 10/22/2016 12:00 AM THERAPEUTIC PROPHYLACTIC/DX INJECTION SUBQ/IM Reviewed 10/18/2016 12:00 AM Lasix, Up to 20 Mg [facility]#4460-2794-25 [facility] Medicare Reviewed 11/16/2016 12:00 AM ASSAY OF NATRIURETIC PEPTIDE Reviewed 12/03/2016 12:00 AM THERAPEUTIC PROPHYLACTIC/DX INJECTION SUBQ/IM Reviewed 12/03/2016 12:00 AM Decadron 8mg Injection, [facility] Medicare Reviewed 11/30/2016 12:00 AM THERAPEUTIC PROPHYLACTIC/DX INJECTION SUBQ/IM Reviewed 11/30/2016 12:00 AM Decadron 8mg Injection, [facility] Medicare Reviewed 11/30/2016 12:00 AM Rocephin 1 gram Injection, [facility] Medicare Reviewed 11/30/2016 12:00 AM AIRWAY INHALATION TREATMENT Reviewed 01/09/2017 12:00 AM THERAPEUTIC PROPHYLACTIC/DX INJECTION SUBQ/IM Reviewed 01/09/2017 12:00 AM Decadron 8mg Injection Reviewed 01/28/2017 12:00 AM DRAIN/INJ JOINT/BURSA W/O US Reviewed 02/01/2017 12:00 AM DRAIN/INJ JOINT/BURSA W/O US Reviewed 03/11/2012 12:00 AM THER/PROPH/DIAG INJ SC/IM Reviewed 03/11/2012 12:00 AM Decadron, Per 1 Mg [facility]# [address]-21 Reviewed 03/11/2012 12:00 AM Depo-Medrol, Per 80 Mg [facility]#0673-4883-35 Reviewed 03/11/2012 12:00 AM Rocephin 1 gram [facility]#6536-2205-85 Reviewed 04/11/2012 12:00 AM Flu Injection 3 Years And Above [facility]# [address]-00 [facility] Reviewed 05/08/2017 12:00 AM THERAPEUTIC PROPHYLACTIC/DX INJECTION SUBQ/IM Reviewed 05/08/2017 12:00 AM Toradol 60 Mg Injection, [facility] Medicare Reviewed 10/27/2012 12:00 AM THER/PROPH/DIAG INJ SC/IM Reviewed 10/27/2012 12:00 AM Decadron, Per 1 Mg [facility]# [address]-99 Reviewed 10/27/2012 12:00 AM Depo-Medrol, Per 80 Mg [facility]#6695-0573-41 Reviewed 12/26/2012 12:00 AM COMPLETE CBC W/AUTO DIFF WBC Reviewed 12/26/2012 12:00 AM COMPREHEN METABOLIC PANEL Reviewed 12/26/2012 12:00 AM LIPID PANEL Reviewed 12/26/2012 12:00 AM ASSAY THYROID STIM HORMONE Reviewed 08/27/2013 12:00 AM THER/PROPH/DIAG INJ SC/IM Reviewed 08/27/2013 12:00 AM Toradol 60 Mg [facility]#5009-6804-22 Reviewed 12/01/2013 12:00 AM THER/PROPH/DIAG INJ SC/IM Reviewed 12/01/2013 12:00 AM Toradol 60 Mg [facility]#2097-1728-43 Reviewed 07/17/2010 12:00 AM THER/PROPH/DIAG INJ SC/IM Reviewed 07/17/2010 12:00 AM Decadron Inj.6mg-([facility]) [facility] #[id number] Reviewed 07/17/2010 12:00 AM Depo-Medrol 120 Mg Im/[facility] [id number] Reviewed 04/21/2014 12:00 AM IMMUNIZATION ADMIN Reviewed 04/21/2014 12:00 AM THER/PROPH/DIAG INJ SC/IM Reviewed 04/21/2014 12:00 AM Decadron, Per 1 Mg [facility]# [address]-65 Reviewed 04/21/2014 12:00 AM Depo-Medrol, Per 80 Mg [facility]#9079-0540-29 Reviewed 05/14/2014 12:00 AM THER/PROPH/DIAG INJ SC/IM Reviewed 05/14/2014 12:00 AM Decadron, Per 1 Mg [facility]# [address]-86 Reviewed 05/14/2014 12:00 AM Depo-Medrol, Per 80 Mg [facility]#4406-7429-58 Reviewed 07/05/2014 12:00 AM THER/PROPH/DIAG INJ SC/IM Reviewed 07/05/2014 12:00 AM Decadron, Per 1 Mg [facility]# [address]-32 Reviewed 07/05/2014 12:00 AM Rocephin 1 gram [facility]#4903-2759-15 Reviewed Results Summary Date and Description Results [...] Generalized anxiety disorder Jul 05 2017 12:33PM Payers Insurance Name Company Name Plan Name Plan Number Policy Number Policy Group Number Start Date Medicare RHC Medicare RHC [id number] N/A [place] Cash[place] Credit Prog - RHC [place] [employer] Credit Prog - RHC [id number] N/A Medicare Part A Medicare - Lab/Xray [id number] N/A Medicare Part B Medicare Of [place] [id number] N/A [place] Medical Assistance Program [place] Medical Assistance Prog [id number] N/A Medicare Part A Medicare Part A [id number] N/A History of Encounters Visit Date Visit Type Provider 07/05/2017 Office visit ELOY BRITT 05/08/2017 Office visit ELOY BRITT 04/15/2017 Office visit ELOY BRITT 04/01/2017 Office visit ELOY BRITT 03/25/2017 Office visit ELOY AHUMADA PA 03/12/2017 [...] 12/17/2016 Office visit ELOY AHUMADA PA 12/10/2016 [facility] Dwayne Lopez MD 12/05/2016 Office visit ELOY AHUMADA PA 12/03/2016 Office visit ELOY AHUMDAA PA 11/30/2016 Office visit ELOY AHUMADA PA 11/29/2016 Office visit ELOY BRITT 11/16/2016 Office visit ELOY AHUMADA PA 11/01/2016 Office visit ELOY AHUMADA PA 10/25/2016 Office visit ELOY AHUMADA PA 10/18/2016 Office visit ELOY AHUMADA PA 10/04/2016 Office visit ELOY AHUMADA PA 09/17/2016 Office visit ELOY AHUMADA PA 09/07/2016 Office visit ELOY BRITT 09/03/2016 Office visit ELOY AHUMADA PA 08/20/2016 [...] PA 03/22/2016 Hospital Jhony Phelps MD 03/22/2016 [facility] Mukul Lopez MD 12/15/2015 Office [...]
--- OUTSIDE RECORDS SUMMARY | 2018-01-13 12:26 | XMS REPORT ---
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 Phone ELOY AHUMADA PCP Unavailable [...] Reviewed 01/24/2015 12:00 AM Toradol 60 Mg [facility]#3918-0867-51 Reviewed 03/25/2015 12:00 AM Toradol 60 Mg [facility]#9768-0759-10 Reviewed 04/06/2015 12:00 AM MRI NECK SPINE W/O DYE Reviewed 05/27/2015 12:00 AM Decadron, Per 1 Mg [facility]# [address]-57 Reviewed 05/27/2015 12:00 AM Depo-Medrol, Per 80 Mg [facility]#1769-8090-74 Reviewed 05/27/2015 12:00 AM Rocephin 1 gram [facility]#5201-6063-67 Reviewed 02/26/2011 12:00 AM THER/PROPH/DIAG INJ SC/IM Reviewed 02/26/2011 12:00 AM Decadron Inj.1mg-([facility]) [facility] #[id number] Reviewed 02/26/2011 12:00 AM Depo-Medrol 80 Mg Im/[facility] [id number] Reviewed 12/15/2015 12:00 AM Rocephin 1 gram [facility]#0737-1115-75 Reviewed 06/03/2016 12:00 AM THERAPEUTIC PROPHYLACTIC/DX INJECTION SUBQ/IM Reviewed 06/03/2016 12:00 AM Decadron 8mg Injection, [facility] Medicare Reviewed 06/27/2016 12:00 AM COMPREHEN METABOLIC PANEL Returned 06/27/2016 12:00 AM URINALYSIS AUTO W/SCOPE Returned 03/11/2012 12:00 AM THER/PROPH/DIAG INJ SC/IM Reviewed 03/11/2012 12:00 AM Decadron, Per 1 Mg [facility]# [address]-64 Reviewed 03/11/2012 12:00 AM Depo-Medrol, Per 80 Mg [facility]#5056-2916-48 Reviewed 03/11/2012 12:00 AM Rocephin 1 gram [facility]#8339-9549-81 Reviewed 04/11/2012 12:00 AM Flu Injection 3 Years And Above [facility]# [address]-51 [facility] Reviewed 10/27/2012 12:00 AM THER/PROPH/DIAG INJ SC/IM Reviewed 10/27/2012 12:00 AM Decadron, Per 1 Mg [facility]# [address]-64 Reviewed 10/27/2012 12:00 AM Depo-Medrol, Per 80 Mg [facility]#6970-7880-86 Reviewed 12/26/2012 12:00 AM COMPLETE CBC W/AUTO DIFF WBC Reviewed 12/26/2012 12:00 AM COMPREHEN METABOLIC PANEL Reviewed 12/26/2012 12:00 AM LIPID PANEL Reviewed 12/26/2012 12:00 AM ASSAY THYROID STIM HORMONE Reviewed 08/27/2013 12:00 AM THER/PROPH/DIAG INJ SC/IM Reviewed 08/27/2013 12:00 AM Toradol 60 Mg [facility]#1629-6513-54 Reviewed 12/01/2013 12:00 AM THER/PROPH/DIAG INJ SC/IM Reviewed 12/01/2013 12:00 AM Toradol 60 Mg [facility]#7744-5707-63 Reviewed 07/17/2010 12:00 AM THER/PROPH/DIAG INJ SC/IM Reviewed 07/17/2010 12:00 AM Decadron Inj.6mg-([facility]) [facility] #[id number] Reviewed 07/17/2010 12:00 AM Depo-Medrol 120 Mg Im/[facility] [id number] Reviewed 04/21/2014 12:00 AM IMMUNIZATION ADMIN Reviewed 04/21/2014 12:00 AM THER/PROPH/DIAG INJ SC/IM Reviewed 04/21/2014 12:00 AM Decadron, Per 1 Mg [facility]# [address]-28 Reviewed 04/21/2014 12:00 AM Depo-Medrol, Per 80 Mg [facility]#8964-9750-34 Reviewed 05/14/2014 12:00 AM THER/PROPH/DIAG INJ SC/IM Reviewed 05/14/2014 12:00 AM Decadron, Per 1 Mg [facility]# [address]-77 Reviewed 05/14/2014 12:00 AM Depo-Medrol, Per 80 Mg [facility]#8128-2570-71 Reviewed 07/05/2014 12:00 AM THER/PROPH/DIAG INJ SC/IM Reviewed 07/05/2014 12:00 AM Decadron, Per 1 Mg [facility]# [address]-48 Reviewed 07/05/2014 12:00 AM Rocephin 1 gram [facility]#6787-9575-70 Reviewed Results Summary Data and Description Results [...] Abnormal kidney function Jul 23 2016 10:35AM Payers Insurance Name Company Name Plan Name Plan Number Policy Number Policy Group Number Start Date Medicare RHC Medicare C [id number] N/A [place] 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
--- OUTSIDE RECORDS SUMMARY | 2018-01-13 12:29 | XMS REPORT ---
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 Phone ELOY AHUMADA PCP Unavailable [...] HC BMI BSA BMI Percentile O2 Sat(%) 12/25/2016 3:42:00 PM 128 mmHg 82 mmHg [...] Toradol 60 Mg [facility]#4011-5744-62 Reviewed 03/25/2015 12:00 AM Toradol 60 Mg [facility]#3074-7814-34 Reviewed 04/06/2015 12:00 AM MRI NECK SPINE W/O DYE Reviewed 05/27/2015 12:00 AM Decadron, Per 1 Mg [facility]# [address]-62 Reviewed 05/27/2015 12:00 AM Depo-Medrol, Per 80 Mg [facility]#8428-5146-04 Reviewed 05/27/2015 12:00 AM Rocephin 1 gram [facility]#6774-5083-00 Reviewed 02/26/2011 12:00 AM THER/PROPH/DIAG INJ SC/IM Reviewed 02/26/2011 12:00 AM Decadron Inj.1mg-([facility]) [facility] #[id number] Reviewed 02/26/2011 12:00 AM Depo-Medrol 80 Mg Im/[facility] [id number] Reviewed 12/15/2015 12:00 AM Rocephin 1 gram [facility]#3046-9764-03 Reviewed 06/03/2016 12:00 AM THERAPEUTIC PROPHYLACTIC/DX INJECTION [...] Lasix, Up to 20 Mg [facility]#5351-2283-57 [facility] Medicare Reviewed 12/03/2016 12:00 AM THERAPEUTIC PROPHYLACTIC/DX [...] 1 Mg [facility]# [address]-93 Reviewed 03/11/2012 12:00 AM Depo-Medrol, Per 80 Mg [facility]#5506-0825-32 Reviewed 03/11/2012 12:00 AM Rocephin 1 gram [facility]#0442-2187-83 Reviewed 04/11/2012 12:00 AM Flu Injection 3 Years And Above [facility]# [address]-62 [facility] Reviewed 10/27/2012 12:00 AM THER/PROPH/DIAG INJ SC/IM Reviewed 10/27/2012 12:00 AM Decadron, Per 1 Mg [facility]# [address]-97 Reviewed 10/27/2012 12:00 AM Depo-Medrol, Per 80 Mg [facility]#0026-7118-01 Reviewed 12/26/2012 12:00 AM COMPLETE CBC W/AUTO DIFF WBC Reviewed 12/26/2012 12:00 AM COMPREHEN METABOLIC PANEL Reviewed 12/26/2012 12:00 AM LIPID PANEL Reviewed 12/26/2012 12:00 AM ASSAY THYROID STIM HORMONE Reviewed 08/27/2013 12:00 AM THER/PROPH/DIAG INJ SC/IM Reviewed 08/27/2013 12:00 AM Toradol 60 Mg [facility]#3373-9794-79 Reviewed 12/01/2013 12:00 AM THER/PROPH/DIAG INJ SC/IM Reviewed 12/01/2013 12:00 AM Toradol 60 Mg [facility]#9527-1002-71 Reviewed 07/17/2010 12:00 AM THER/PROPH/DIAG INJ SC/IM Reviewed 07/17/2010 12:00 AM Decadron Inj.6mg-([facility]) [facility] #[id number] Reviewed 07/17/2010 12:00 AM Depo-Medrol 120 Mg Im/[facility] [id number] Reviewed 04/21/2014 12:00 AM IMMUNIZATION ADMIN Reviewed 04/21/2014 12:00 AM THER/PROPH/DIAG INJ SC/IM Reviewed 04/21/2014 12:00 AM Decadron, Per 1 Mg [facility]# [address]-88 Reviewed 04/21/2014 12:00 AM Depo-Medrol, Per 80 Mg [facility]#1151-0840-21 Reviewed 05/14/2014 12:00 AM THER/PROPH/DIAG INJ SC/IM Reviewed 05/14/2014 12:00 AM Decadron, Per 1 Mg [facility]# [address]-03 Reviewed 05/14/2014 12:00 AM Depo-Medrol, Per 80 Mg [facility]#6350-2774-26 Reviewed 07/05/2014 12:00 AM THER/PROPH/DIAG INJ SC/IM Reviewed 07/05/2014 12:00 AM Decadron, Per 1 Mg [facility]# [address]-08 Reviewed 07/05/2014 12:00 AM Rocephin 1 gram [facility]#6186-0094-26 Reviewed Results Summary Date and Description Results [...] on exertion Worsening Dec 25 2016 3:44PM Payers Insurance Name Company Name Plan Name Plan Number Policy Number Policy Group Number Start Date Medicare RHC Medicare C [id number] N/A [facility] [id number] N/A Medicare Part A Medicare - Lab/Xray [id number] N/A Medicare Part B Medicare Of [place] [id number] N/A [facility] Assistance [facility] Medical Assistance Prog [id number] N/A Medicare Part A Medicare Part A [id number] N/A History of Encounters Visit Date Visit Type Provider 12/25/2016 Office visit ELOY AHUMADA PA 12/17/2016 Office visit ELOY AHUMADA PA 12/05/2016 Office visit ELOY AHUMADA PA 12/03/2016 [...] PA 03/22/2016 Hospital Jhony Phelps MD 03/22/2016 [facility] Mukul Lopez MD 12/15/2015 Office [...]
--- OUTSIDE RECORDS SUMMARY | 2018-01-13 12:31 | XMS REPORT ---
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 Role Phone ELOY AHUMADA PCP Unavailable [...] Toradol 60 Mg [facility]#2717-2907-17 Reviewed 03/25/2015 12:00 AM Toradol 60 Mg [facility]#7986-9282-47 Reviewed 04/06/2015 12:00 AM MRI NECK SPINE W/O DYE Reviewed 05/27/2015 12:00 AM Decadron, Per 1 Mg [facility]# [address]-99 Reviewed 05/27/2015 12:00 AM Depo-Medrol, Per 80 Mg [facility]#8602-9489-19 Reviewed 05/27/2015 12:00 AM Rocephin 1 gram [facility]#3659-6196-06 Reviewed 02/26/2011 12:00 AM THER/PROPH/DIAG INJ SC/IM Reviewed 02/26/2011 12:00 AM Decadron Inj.1mg-([facility]) [facility] #[id number] Reviewed 02/26/2011 12:00 AM Depo-Medrol 80 Mg Im/[facility] [id number] Reviewed 12/15/2015 12:00 AM Rocephin 1 gram [facility]#9652-0910-67 Reviewed 06/03/2016 12:00 AM THERAPEUTIC PROPHYLACTIC/DX INJECTION [...] 1 Mg [facility]# [address]-22 Reviewed 03/11/2012 12:00 AM Depo-Medrol, Per 80 Mg [facility]#2098-8701-77 Reviewed 03/11/2012 12:00 AM Rocephin 1 gram [facility]#9230-2787-94 Reviewed 04/11/2012 12:00 AM Flu Injection 3 Years And Above [facility]# [address]-63 [facility] Reviewed 10/27/2012 12:00 AM THER/PROPH/DIAG INJ SC/IM Reviewed 10/27/2012 12:00 AM Decadron, Per 1 Mg [facility]# [address]-25 Reviewed 10/27/2012 12:00 AM Depo-Medrol, Per 80 Mg [facility]#3499-5306-45 Reviewed 12/26/2012 12:00 AM COMPLETE CBC W/AUTO DIFF WBC Reviewed 12/26/2012 12:00 AM COMPREHEN METABOLIC PANEL Reviewed 12/26/2012 12:00 AM LIPID PANEL Reviewed 12/26/2012 12:00 AM ASSAY THYROID STIM HORMONE Reviewed 08/27/2013 12:00 AM THER/PROPH/DIAG INJ SC/IM Reviewed 08/27/2013 12:00 AM Toradol 60 Mg [facility]#2590-5265-64 Reviewed 12/01/2013 12:00 AM THER/PROPH/DIAG INJ SC/IM Reviewed 12/01/2013 12:00 AM Toradol 60 Mg [facility]#2494-0934-50 Reviewed 07/17/2010 12:00 AM THER/PROPH/DIAG INJ SC/IM Reviewed 07/17/2010 12:00 AM Decadron Inj.6mg-([facility]) [facility] #[id number] Reviewed 07/17/2010 12:00 AM Depo-Medrol 120 Mg Im/[facility] [id number] Reviewed 04/21/2014 12:00 AM IMMUNIZATION ADMIN Reviewed 04/21/2014 12:00 AM THER/PROPH/DIAG INJ SC/IM Reviewed 04/21/2014 12:00 AM Decadron, Per 1 Mg [facility]# [address]-42 Reviewed 04/21/2014 12:00 AM Depo-Medrol, Per 80 Mg [facility]#8933-1139-42 Reviewed 05/14/2014 12:00 AM THER/PROPH/DIAG INJ SC/IM Reviewed 05/14/2014 12:00 AM Decadron, Per 1 Mg [facility]# [address]-52 Reviewed 05/14/2014 12:00 AM Depo-Medrol, Per 80 Mg [facility]#9238-4569-12 Reviewed 07/05/2014 12:00 AM THER/PROPH/DIAG INJ SC/IM Reviewed 07/05/2014 12:00 AM Decadron, Per 1 Mg [facility]# [address]-44 Reviewed 07/05/2014 12:00 AM Rocephin 1 gram [facility]#3420-0786-32 Reviewed Results Summary Date and Description Results [...] Of Immunizations Name Date Admin Mfg Name [facility] Code Trade Name Lot# Route Inj Vis [...] Number Start Date Medicare RHC Medicare RHC [id number] N/A [place] [employer]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
--- OUTSIDE RECORDS SUMMARY | 2018-01-13 12:34 | XMS REPORT ---
Author ELOY Fleming [facility] Address [address] [place], [place] [address] Care Team Providers Care Cna Caregiver Name Role Phone ELOY AHUMADA PCP Unavailable [...] 10 days nystatin 100,000 unit/mL oral suspension 02/14/2017 take [...] HC BMI BSA BMI Percentile O2 Sat(%) 02/15/2017 6:45:00 AM 122 mmHg 80 mmHg [...] Reviewed 01/24/2015 12:00 AM Toradol 60 Mg ND#1519-2582-38 Reviewed 03/25/2015 12:00 AM Toradol 60 Mg NDC#1618-6340-48 Reviewed 04/06/2015 12:00 AM MRI NECK SPINE W/O DYE Reviewed 05/27/2015 12:00 AM Decadron, Per 1 Mg ND# [address]-30 Reviewed 05/27/2015 12:00 AM Depo-Medrol, Per 80 Mg ND#9396-1038-28 Reviewed 05/27/2015 12:00 AM Rocephin 1 gram [facility]#5911-6618-81 Reviewed 02/26/2011 12:00 AM THER/PROPH/DIAG INJ SC/IM Reviewed 02/26/2011 12:00 AM Decadron Inj.1mg-([facility]) [facility] #[id number] Reviewed 02/26/2011 12:00 AM Depo-Medrol 80 Mg Im/[facility] 0009-094909 Reviewed 12/15/2015 12:00 AM Rocephin 1 gram [facility]#8556-4405-98 Reviewed 06/03/2016 12:00 AM THERAPEUTIC PROPHYLACTIC/DX INJECTION [...] 09/07/2016 12:00 AM Rocephin 1 gram Injection, [facility] Medicare Reviewed 09/03/2016 12:00 AM THERAPEUTIC PROPHYLACTIC/DX INJECTION SUBQ/IM Reviewed 09/03/2016 12:00 AM Rocephin 1 gram Injection, [facility] Medicare Reviewed 10/22/2016 12:00 AM THERAPEUTIC PROPHYLACTIC/DX INJECTION SUBQ/IM Reviewed 10/18/2016 12:00 AM Lasix, Up to 20 Mg [facility]#8563-5996-69 [facility] Medicare Reviewed 11/16/2016 12:00 AM ASSAY [...] 03/11/2012 12:00 AM Decadron, Per 1 Mg [facility]# [address]-10 Reviewed 03/11/2012 12:00 AM Depo-Medrol, Per 80 Mg [facility]#9498-2574-86 Reviewed 03/11/2012 12:00 AM Rocephin 1 gram [facility]#6520-7939-27 Reviewed 04/11/2012 12:00 AM Flu Injection 3 Years And Above [facility]# [address]-29 RHC Reviewed 10/27/2012 12:00 AM THER/PROPH/DIAG INJ SC/IM Reviewed 10/27/2012 12:00 AM Decadron, Per 1 Mg [facility]# [address]-29 Reviewed 10/27/2012 12:00 AM Depo-Medrol, Per 80 Mg [facility]#3826-5473-54 Reviewed 12/26/2012 12:00 AM COMPLETE CBC W/AUTO DIFF WBC Reviewed 12/26/2012 12:00 AM COMPREHEN METABOLIC PANEL Reviewed 12/26/2012 12:00 AM LIPID PANEL Reviewed 12/26/2012 12:00 AM ASSAY THYROID STIM HORMONE Reviewed 08/27/2013 12:00 AM THER/PROPH/DIAG INJ SC/IM Reviewed 08/27/2013 12:00 AM Toradol 60 Mg [facility]#4850-4618-75 Reviewed 12/01/2013 12:00 AM THER/PROPH/DIAG INJ SC/IM Reviewed 12/01/2013 12:00 AM Toradol 60 Mg [facility]#4452-2611-31 Reviewed 07/17/2010 12:00 AM THER/PROPH/DIAG INJ SC/IM Reviewed 07/17/2010 12:00 AM Decadron Inj.6mg-([facility]) [facility] #[id number] Reviewed 07/17/2010 12:00 AM Depo-Medrol 120 Mg Im/[facility] [id number] Reviewed 04/21/2014 12:00 AM IMMUNIZATION ADMIN Reviewed 04/21/2014 12:00 AM THER/PROPH/DIAG INJ SC/IM Reviewed 04/21/2014 12:00 AM Decadron, Per 1 Mg [facility]# [address]-70 Reviewed 04/21/2014 12:00 AM Depo-Medrol, Per 80 Mg [facility]#3902-7100-60 Reviewed 05/14/2014 12:00 AM THER/PROPH/DIAG INJ SC/IM Reviewed 05/14/2014 12:00 AM Decadron, Per 1 Mg [facility]# [address]-70 Reviewed 05/14/2014 12:00 AM Depo-Medrol, Per 80 Mg [facility]#5783-1904-55 Reviewed 07/05/2014 12:00 AM THER/PROPH/DIAG INJ SC/IM Reviewed 07/05/2014 12:00 AM Decadron, Per 1 Mg [facility]# [address]-84 Reviewed 07/05/2014 12:00 AM Rocephin 1 gram [facility]#1502-5633-35 Reviewed Results Summary Date and Description Results [...] osteoarthritis type Feb 15 2017 6: 45AM Payers Insurance Name Company Name Plan Name Plan Number Policy Number Policy Group Number Start Date Medicare RHC Medicare RHC [id number] N/A [place] 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 [place] 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 [id number] N/A Medicare Part A Medicare - Lab/Xray [id number] N/A Medicare Part B Medicare Of [place] [id number] N/A [place] Medical Assistance [facility] Medical Assistance Prog [id number] N/A Medicare Part A Medicare Part A [id number] N/A History of Encounters Visit Date Visit Type Provider 02/14/2017 Office visit ELOY BRITT 02/14/2017 Office visit ELOY AHUMADA PA 02/01/2017 [...] ELOY AHUMADA PA 07/18/2016 Office visit ELOY BRITT 07/16/2016 Office [...] PA 03/22/2016 Hospital Jhony Phelps MD 03/22/2016 [facility] Mukul Lopez MD 12/15/2015 Office visit [...]
--- OUTSIDE RECORDS SUMMARY | 2018-01-13 12:35 | XMS REPORT ---
Author Author ELOY AHUMADA [facility] Address [address] [place], [place] [address] Care Team Providers Care Peritoneal Dialysis Registered Nurse Name Role Phone ELOY AHUMADA PCP [...] SC/IM Reviewed 02/26/2011 12:00 AM Decadron Inj.1mg-([facility]) [facility] #[id number] Reviewed 02/26/2011 12:00 AM Depo-Medrol 80 Mg Im/[facility] 0009-923153 Reviewed 03/11/2012 12:00 AM THER/PROPH/DIAG INJ SC/IM Reviewed 03/11/2012 12:00 AM Decadron, Per 1 Mg [facility]# [address]-53 Reviewed 03/11/2012 12:00 AM Depo-Medrol, Per 80 Mg [facility]#5526-9432-49 Reviewed 03/11/2012 12:00 AM Rocephin 1 gram [facility]#9524-8000-56 Reviewed 04/11/2012 12:00 AM Flu Injection 3 Years And Above [facility]# [address]-01 RHC Reviewed 10/27/2012 12:00 AM THER/PROPH/DIAG INJ SC/IM Reviewed 10/27/2012 12:00 AM Decadron, Per 1 Mg [facility]# [address]-25 Reviewed 10/27/2012 12:00 AM Depo-Medrol, Per 80 Mg [facility]#9924-8459-02 Reviewed 12/26/2012 12:00 AM COMPLETE CBC W/AUTO DIFF WBC Reviewed 12/26/2012 12:00 AM COMPREHEN METABOLIC PANEL Reviewed 12/26/2012 12:00 AM LIPID PANEL Reviewed 12/26/2012 12:00 AM ASSAY THYROID STIM HORMONE Reviewed 08/27/2013 12:00 AM THER/PROPH/DIAG INJ SC/IM Reviewed 08/27/2013 12:00 AM Toradol 60 Mg [facility]#7958-2192-81 Reviewed 12/01/2013 12:00 AM THER/PROPH/DIAG INJ SC/IM Reviewed 12/01/2013 12:00 AM Toradol 60 Mg [facility]#2116-6264-46 Reviewed 07/17/2010 12:00 AM THER/PROPH/DIAG INJ SC/IM Reviewed 07/17/2010 12:00 AM Decadron Inj.6mg-([facility]) [facility] #[id number] Reviewed 07/17/2010 12:00 AM Depo-Medrol 120 Mg Im/[facility] 0009-798260 Reviewed 04/21/2014 12:00 AM IMMUNIZATION ADMIN Reviewed 04/21/2014 12:00 AM THER/PROPH/DIAG INJ SC/IM Reviewed 04/21/2014 12:00 AM Decadron, Per 1 Mg [facility]# [address]-50 Reviewed 04/21/2014 12:00 AM Depo-Medrol, Per 80 Mg [facility]#0583-2063-53 Reviewed 05/14/2014 12:00 AM THER/PROPH/DIAG INJ SC/IM Reviewed 05/14/2014 12:00 AM Decadron, Per 1 Mg [facility]# [address]-91 Reviewed 05/14/2014 12:00 AM Depo-Medrol, Per 80 Mg [facility]#5523-6180-27 Reviewed 07/05/2014 12:00 AM THER/PROPH/DIAG INJ SC/IM Reviewed 07/05/2014 12:00 AM Decadron, Per 1 Mg [facility]# [address]-31 Reviewed 07/05/2014 12:00 AM Rocephin 1 gram [facility]#0252-1949-49 Reviewed Results Summary Not available. 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
--- OUTSIDE RECORDS SUMMARY | 2018-01-13 12:36 | XMS REPORT ---
Author Author ELOY AHUMADA [facility] Address [address] [place], [place] [address] Care Team Providers Care Family Therapist Name Role Phone ELOY AHUMADA PCP Unavailable [...] Toradol 60 Mg [facility]#0200-7649-03 Reviewed 03/25/2015 12:00 AM Toradol 60 Mg [facility]#2992-6131-76 Reviewed 04/06/2015 12:00 AM MRI NECK SPINE W/O DYE Reviewed 05/27/2015 12:00 AM Decadron, Per 1 Mg [facility]# [address]-38 Reviewed 05/27/2015 12:00 AM Depo-Medrol, Per 80 Mg [facility]#6383-3647-52 Reviewed 05/27/2015 12:00 AM Rocephin 1 gram [facility]#0223-[address]306-70 Reviewed 02/26/2011 12:00 AM THER/PROPH/DIAG INJ SC/IM Reviewed 02/26/2011 12:00 AM Decadron Inj.1mg-([facility]) [facility] #[id number] Reviewed 02/26/2011 12:00 AM Depo-Medrol 80 Mg Im/[facility]ardo [facility] 0009-040924 Reviewed 12/15/2015 12:00 AM Rocephin 1 gram [facility]#7609-8052-21 Reviewed 03/11/2012 12:00 AM THER/PROPH/DIAG INJ SC/IM Reviewed 03/11/2012 12:00 AM Decadron, Per 1 Mg [facility]# [address]-16 Reviewed 03/11/2012 12:00 AM Depo-Medrol, Per 80 Mg [facility]#2318-7270-10 Reviewed 03/11/2012 12:00 AM Rocephin 1 gram [facility]#5070-9419-12 Reviewed 04/11/2012 12:00 AM Flu Injection 3 Years And Above [facility]# [address]-52 RHC Reviewed 10/27/2012 12:00 AM THER/PROPH/DIAG INJ SC/IM Reviewed 10/27/2012 12:00 AM Decadron, Per 1 Mg [facility]# [address]-67 Reviewed 10/27/2012 12:00 AM Depo-Medrol, Per 80 Mg [facility]#7911-8927-33 Reviewed 12/26/2012 12:00 AM COMPLETE CBC W/AUTO DIFF WBC Reviewed 12/26/2012 12:00 AM COMPREHEN METABOLIC PANEL Reviewed 12/26/2012 12:00 AM LIPID PANEL Reviewed 12/26/2012 12:00 AM ASSAY THYROID STIM HORMONE Reviewed 08/27/2013 12:00 AM THER/PROPH/DIAG INJ SC/IM Reviewed 08/27/2013 12:00 AM Toradol 60 Mg [facility]#9647-6741-88 Reviewed 12/01/2013 12:00 AM THER/PROPH/DIAG INJ SC/IM Reviewed 12/01/2013 12:00 AM Toradol 60 Mg [facility]#1560-7273-73 Reviewed 07/17/2010 12:00 AM THER/PROPH/DIAG INJ SC/IM Reviewed 07/17/2010 12:00 AM Decadron Inj.6mg-([facility]) [facility] #[id number] Reviewed 07/17/2010 12:00 AM Depo-Medrol 120 Mg Im/[facility]ardo [facility] [id number] Reviewed 04/21/2014 12:00 AM IMMUNIZATION ADMIN Reviewed 04/21/2014 12:00 AM THER/PROPH/DIAG INJ SC/IM Reviewed 04/21/2014 12:00 AM Decadron, Per 1 Mg [facility]# [address]-41 Reviewed 04/21/2014 12:00 AM Depo-Medrol, Per 80 Mg [facility]#0643-5071-78 Reviewed 05/14/2014 12:00 AM THER/PROPH/DIAG INJ SC/IM Reviewed 05/14/2014 12:00 AM Decadron, Per 1 Mg [facility]# [address]-16 Reviewed 05/14/2014 12:00 AM Depo-Medrol, Per 80 Mg [facility]#3879-7294-81 Reviewed 07/05/2014 12:00 AM THER/PROPH/DIAG INJ SC/IM Reviewed 07/05/2014 12:00 AM Decadron, Per 1 Mg [facility]# [address]-68 Reviewed 07/05/2014 12:00 AM Rocephin 1 gram [facility]#3422-9253-44 Reviewed Results Summary Data and Description Results [...] Chronic COPD exacerbation Jun 04 2016 6:46AM Payers Insurance Name Company Name Plan Name Plan Number Policy Number Policy Group Number Start Date Medicare RHC Medicare RHC [id number] N/A [place] [employer]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
--- OUTSIDE RECORDS SUMMARY | 2018-01-13 12:38 | XMS REPORT ---
Author ELOY Fleming [facility] Address [address] [place], [place] [address] Care Team Providers Care Retail Warehouse Supervisor Name Role Phone ELOY AHUMADA PCP [...] Toradol 60 Mg [facility]#0393-1964-59 Reviewed 03/25/2015 12:00 AM Toradol 60 Mg [facility]#6163-4289-59 Reviewed 04/06/2015 12:00 AM MRI NECK SPINE W/O DYE Reviewed 05/27/2015 12:00 AM Decadron, Per 1 Mg [facility]# [address]-60 Reviewed 05/27/2015 12:00 AM Depo-Medrol, Per 80 Mg [facility]#0070-0826-49 Reviewed 05/27/2015 12:00 AM Rocephin 1 gram [facility]#3046-1521-67 Reviewed 02/26/2011 12:00 AM THER/PROPH/DIAG INJ SC/IM Reviewed 02/26/2011 12:00 AM Decadron Inj.1mg-([facility]) [facility] #[id number] Reviewed 02/26/2011 12:00 AM Depo-Medrol 80 Mg Im/[facility] Gerardo [facility] 0009-234823 Reviewed 12/15/2015 12:00 AM Rocephin 1 gram [facility]#2049-7055-88 Reviewed 03/11/2012 12:00 AM THER/PROPH/DIAG INJ SC/IM Reviewed 03/11/2012 12:00 AM Decadron, Per 1 Mg [facility]# [address]-54 Reviewed 03/11/2012 12:00 AM Depo-Medrol, Per 80 Mg [facility]#1887-5433-53 Reviewed 03/11/2012 12:00 AM Rocephin 1 gram [facility]#4832-8168-77 Reviewed 04/11/2012 12:00 AM Flu Injection 3 Years And Above [facility]# [address]-79 RHC Reviewed 10/27/2012 12:00 AM THER/PROPH/DIAG INJ SC/IM Reviewed 10/27/2012 12:00 AM Decadron, Per 1 Mg [facility]# [address]-02 Reviewed 10/27/2012 12:00 AM Depo-Medrol, Per 80 Mg [facility]#7257-1600-75 Reviewed 12/26/2012 12:00 AM COMPLETE CBC W/AUTO DIFF WBC Reviewed 12/26/2012 12:00 AM COMPREHEN METABOLIC PANEL Reviewed 12/26/2012 12:00 AM LIPID PANEL Reviewed 12/26/2012 12:00 AM ASSAY THYROID STIM HORMONE Reviewed 08/27/2013 12:00 AM THER/PROPH/DIAG INJ SC/IM Reviewed 08/27/2013 12:00 AM Toradol 60 Mg [facility]#0725-2019-49 Reviewed 12/01/2013 12:00 AM THER/PROPH/DIAG INJ SC/IM Reviewed 12/01/2013 12:00 AM Toradol 60 Mg [facility]#5484-6196-46 Reviewed 07/17/2010 12:00 AM THER/PROPH/DIAG INJ SC/IM Reviewed 07/17/2010 12:00 AM Decadron Inj.6mg-([facility]) [facility] #[id number] Reviewed 07/17/2010 12:00 AM Depo-Medrol 120 Mg Im/[facility] Gerardo [facility] [id number] Reviewed 04/21/2014 12:00 AM IMMUNIZATION ADMIN Reviewed 04/21/2014 12:00 AM THER/PROPH/DIAG INJ SC/IM Reviewed 04/21/2014 12:00 AM Decadron, Per 1 Mg [facility]# [address]-20 Reviewed 04/21/2014 12:00 AM Depo-Medrol, Per 80 Mg [facility]#8577-6671-47 Reviewed 05/14/2014 12:00 AM THER/PROPH/DIAG INJ SC/IM Reviewed 05/14/2014 12:00 AM Decadron, Per 1 Mg [facility]# [address]-83 Reviewed 05/14/2014 12:00 AM Depo-Medrol, Per 80 Mg [facility]#9948-2506-05 Reviewed 07/05/2014 12:00 AM THER/PROPH/DIAG INJ SC/IM Reviewed 07/05/2014 12:00 AM Decadron, Per 1 Mg [facility]# [address]-94 Reviewed 07/05/2014 12:00 AM Rocephin 1 gram [facility]#5242-1536-07 Reviewed Results Summary Data and Description Results [...] Anxiety about health May 14 2016 11:06AM Payers Insurance Name Company Name Plan Name Plan Number Policy Number Policy Group Number Start Date Medicare RHC Medicare [facility] [id number] N/A [place] 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g - [facility] [id number] N/A Medicare Part A Medicare - Lab/Xray [id number] N/A Medicare Part B Medicare Of [place] [id number] N/A [place] [facility] [id number] N/A Medicare Part A Medicare Part A [id number] N/A History of Encounters Visit Date Visit Type Provider 05/14/2016 Office visit ELOY BRITT 04/17/2016 Office visit ELOY AHUMADA PA 04/02/2016 Office visit ELOY AHUMADA PA 03/22/2016 [facility] Jhony Phelps MD 12/15/2015 Office visit [...]
--- OUTSIDE RECORDS SUMMARY | 2018-01-13 12:39 | XMS REPORT ---
Author Author ELOY AHUMADA [facility] Address [address] [place], [place] [address] Care Team Providers Care Stoker Installer Name Role Phone ELOY AHUMADA PCP Unavailable [...] to exceed 30 mL in 24 hours lisinopril-hydrochlorothiazide 10-12.5 mg oral tablet 09/15/2015 02/12/2016 take 1 tablet by oral route once daily for 30 days Breo Ellipta 100-25 mcg/dose inhalation blister with device 10/17/2015 inhale 1 puff by inhalation route once daily at the same time each day phentermine 37.5 mg oral tablet 10/11/2015/2 po in the am Percocet 5-325 mg oral tablet 10/24/2015 take 1 tablet by oral route every [...] HC BMI BSA BMI Percentile O2 Sat(%) 10/24/2015 11:24:00 AM 145 mmHg 88 mmHg [...] 01/24/2015 12:00 AM Toradol 60 Mg [facility]#7096-5498-44 Reviewed 03/25/2015 12:00 AM Toradol 60 Mg [facility]#7556-1110-03 Reviewed 04/06/2015 12:00 AM MRI NECK SPINE W/O DYE Returned 05/27/2015 12:00 AM Decadron, Per 1 Mg [facility]# [address]-61 Reviewed 05/27/2015 12:00 AM Depo-Medrol, Per 80 Mg [facility]#9481-8034-20 Reviewed 05/27/2015 12:00 AM Rocephin 1 gram [facility]#5047-0053-76 Reviewed 02/26/2011 12:00 AM THER/PROPH/DIAG INJ SC/IM Reviewed 02/26/2011 12:00 AM Decadron Inj.1mg-([facility]) [facility] #[id number] Reviewed 02/26/2011 12:00 AM Depo-Medrol 80 Mg Im/[facility] Gerardo [facility] 0009-988998 Reviewed 03/11/2012 12:00 AM THER/PROPH/DIAG INJ SC/IM Reviewed 03/11/2012 12:00 AM Decadron, Per 1 Mg [facility]# [address]-61 Reviewed 03/11/2012 12:00 AM Depo-Medrol, Per 80 Mg [facility]#1219-2025-07 Reviewed 03/11/2012 12:00 AM Rocephin 1 gram [facility]#6342-9764-70 Reviewed 04/11/2012 12:00 AM Flu Injection 3 Years And Above [facility]# [address]-53 RHC Reviewed 10/27/2012 12:00 AM THER/PROPH/DIAG INJ SC/IM Reviewed 10/27/2012 12:00 AM Decadron, Per 1 Mg [facility]# [address]-71 Reviewed 10/27/2012 12:00 AM Depo-Medrol, Per 80 Mg [facility]#4808-2063-71 Reviewed 12/26/2012 12:00 AM COMPLETE CBC W/AUTO DIFF WBC Reviewed 12/26/2012 12:00 AM COMPREHEN METABOLIC PANEL Reviewed 12/26/2012 12:00 AM LIPID PANEL Reviewed 12/26/2012 12:00 AM ASSAY THYROID STIM HORMONE Reviewed 08/27/2013 12:00 AM THER/PROPH/DIAG INJ SC/IM Reviewed 08/27/2013 12:00 AM Toradol 60 Mg [facility]#8656-4610-30 Reviewed 12/01/2013 12:00 AM THER/PROPH/DIAG INJ SC/IM Reviewed 12/01/2013 12:00 AM Toradol 60 Mg [facility]#2014-6708-39 Reviewed 07/17/2010 12:00 AM THER/PROPH/DIAG INJ SC/IM Reviewed 07/17/2010 12:00 AM Decadron Inj.6mg-([facility]) [facility] #[id number] Reviewed 07/17/2010 12:00 AM Depo-Medrol 120 Mg Im/[facility] Gerardo [facility] 0009-745238 Reviewed 04/21/2014 12:00 AM IMMUNIZATION ADMIN Reviewed 04/21/2014 12:00 AM THER/PROPH/DIAG INJ SC/IM Reviewed 04/21/2014 12:00 AM Decadron, Per 1 Mg [facility]# [address]-87 Reviewed 04/21/2014 12:00 AM Depo-Medrol, Per 80 Mg [facility]#8468-1712-62 Reviewed 05/14/2014 12:00 AM THER/PROPH/DIAG INJ SC/IM Reviewed 05/14/2014 12:00 AM Decadron, Per 1 Mg [facility]# [address]-22 Reviewed 05/14/2014 12:00 AM Depo-Medrol, Per 80 Mg [facility]#4988-0873-52 Reviewed 07/05/2014 12:00 AM THER/PROPH/DIAG INJ SC/IM Reviewed 07/05/2014 12:00 AM Decadron, Per 1 Mg [facility]# [address]-58 Reviewed 07/05/2014 12:00 AM Rocephin 1 gram [facility]#6690-2466-58 Reviewed Results Summary Data and Description Results [...] obstructive pulmonary disease) Oct 24 2015 11:25AM Payers Insurance Name Company Name Plan Name Plan Number Policy Number Policy Group Number Start Date Medicare Part A Medicare RHC [id number] N/A [facility] [id number] N/A Medicare Part A Medicare - Lab/Xray [id number] N/A Medicare Part A Medicare Part A [id number] N/A History of Encounters Visit Date Visit Type Provider 10/24/2015 Office visit ELOY AHUMADA PA 10/11/2015 [...]
--- OUTSIDE RECORDS SUMMARY | 2018-01-13 12:41 | XMS REPORT ---
Author ELOY Fleming [facility] Address [address] [place], [place] [id number] Care Team Providers Care Credit Verification Clerk Name Role Phone ELOY AHUMADA PCP Unavailable [...] Toradol 60 Mg [facility]#0170-8992-44 Reviewed 03/25/2015 12:00 AM Toradol 60 Mg [facility]#5962-9695-29 Reviewed 04/06/2015 12:00 AM MRI NECK SPINE W/O DYE Reviewed 05/27/2015 12:00 AM Decadron, Per 1 Mg [facility]# [address]-61 Reviewed 05/27/2015 12:00 AM Depo-Medrol, Per 80 Mg [facility]#3039-5986-61 Reviewed 05/27/2015 12:00 AM Rocephin 1 gram [facility]#9698-3783-37 Reviewed 02/26/2011 12:00 AM THER/PROPH/DIAG INJ SC/IM Reviewed 02/26/2011 12:00 AM Decadron Inj.1mg-([facility]) [facility] #[id number] Reviewed 02/26/2011 12:00 AM Depo-Medrol 80 Mg Im/[facility] [id number] Reviewed 12/15/2015 12:00 AM Rocephin 1 gram [facility]#7032-9626-79 Reviewed 06/03/2016 12:00 AM THERAPEUTIC PROPHYLACTIC/DX INJECTION [...] 1 Mg [facility]# [address]-83 Reviewed 03/11/2012 12:00 AM Depo-Medrol, Per 80 Mg [facility]#8258-8782-16 Reviewed 03/11/2012 12:00 AM Rocephin 1 gram [facility]#6104-8352-41 Reviewed 04/11/2012 12:00 AM Flu Injection 3 Years And Above [facility]# [address]-74 [facility] Reviewed 10/27/2012 12:00 AM THER/PROPH/DIAG INJ SC/IM Reviewed 10/27/2012 12:00 AM Decadron, Per 1 Mg [facility]# [address]-82 Reviewed 10/27/2012 12:00 AM Depo-Medrol, Per 80 Mg [facility]#2423-4838-53 Reviewed 12/26/2012 12:00 AM COMPLETE CBC W/AUTO DIFF WBC Reviewed 12/26/2012 12:00 AM COMPREHEN METABOLIC PANEL Reviewed 12/26/2012 12:00 AM LIPID PANEL Reviewed 12/26/2012 12:00 AM ASSAY THYROID STIM HORMONE Reviewed 08/27/2013 12:00 AM THER/PROPH/DIAG INJ SC/IM Reviewed 08/27/2013 12:00 AM Toradol 60 Mg [facility]#0357-7982-99 Reviewed 12/01/2013 12:00 AM THER/PROPH/DIAG INJ SC/IM Reviewed 12/01/2013 12:00 AM Toradol 60 Mg [facility]#4479-1792-75 Reviewed 07/17/2010 12:00 AM THER/PROPH/DIAG INJ SC/IM Reviewed 07/17/2010 12:00 AM Decadron Inj.6mg-([facility]) [facility] #[id number] Reviewed 07/17/2010 12:00 AM Depo-Medrol 120 Mg Im/[facility] [id number] Reviewed 04/21/2014 12:00 AM IMMUNIZATION ADMIN Reviewed 04/21/2014 12:00 AM THER/PROPH/DIAG INJ SC/IM Reviewed 04/21/2014 12:00 AM Decadron, Per 1 Mg [facility]# [address]-12 Reviewed 04/21/2014 12:00 AM Depo-Medrol, Per 80 Mg [facility]#1902-8292-10 Reviewed 05/14/2014 12:00 AM THER/PROPH/DIAG INJ SC/IM Reviewed 05/14/2014 12:00 AM Decadron, Per 1 Mg [facility]# [address]-24 Reviewed 05/14/2014 12:00 AM Depo-Medrol, Per 80 Mg [facility]#1739-9004-03 Reviewed 07/05/2014 12:00 AM THER/PROPH/DIAG INJ SC/IM Reviewed 07/05/2014 12:00 AM Decadron, Per 1 Mg [facility]# [address]-30 Reviewed 07/05/2014 12:00 AM Rocephin 1 gram [facility]#5510-0546-74 Reviewed Results Summary Date and Description Results [...] Of Immunizations Name Date Admin Mfg Name [facility] Code Trade Name Lot# Route [...] Number Start Date Medicare RHC Medicare RHC [id number] N/A [place] [employer] Prog - RHC [place] [employer] Pro[employer] - RHC [id number] N/A Medicare Part A Medicare - Lab/Xray [id number] N/A Medicare Part B Medicare Of [place] [id number] N/A [place] Medical [employer] [place] [employer] Prog [id number] N/A Medicare Part A Medicare Part A [id number] N/A History of Encounters Visit Date Visit [...]
--- OUTSIDE RECORDS SUMMARY | 2018-01-13 12:43 | XMS REPORT ---
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 Name Role Phone ELOY AHUMADA PCP Unavailable ELOY AHUMADA PreferredProvider Unavailable Allergies and Adverse Reactions Name Reaction Notes Depo-Medrol Pain, muscle spasms, insomnia Decadron Pain, Muscle spasms, insomnia Plan of Treatment Planned Activity Comments Planned Date Planned Time Plan/Goal BNP 05/15/2016 12:00 AM Injection,Subcutaneous/Intramuscul, RHC Medicare 09/03/2016 12:00 AM cervical pain 06/15/2015 11:00 AM [...] Reviewed 01/24/2015 12:00 AM Toradol 60 Mg [facility]#2956-0876-42 Reviewed 03/25/2015 12:00 AM Toradol 60 Mg [facility]#7574-9730-50 Reviewed 04/06/2015 12:00 AM MRI NECK SPINE W/O DYE Reviewed 05/27/2015 12:00 AM Decadron, Per 1 Mg [facility]# [address]-60 Reviewed 05/27/2015 12:00 AM Depo-Medrol, Per 80 Mg [facility]#3340-5793-51 Reviewed 05/27/2015 12:00 AM Rocephin 1 gram [facility]#4054-9909-75 Reviewed 02/26/2011 12:00 AM THER/PROPH/DIAG INJ SC/IM Reviewed 02/26/2011 12:00 AM Decadron Inj.1mg-([facility]) [facility] #[id number] Reviewed 02/26/2011 12:00 AM Depo-Medrol 80 Mg Im/[facility] 0009-220447 Reviewed 12/15/2015 12:00 AM Rocephin 1 gram [facility]#2571-3038-20 Reviewed 06/03/2016 12:00 AM THERAPEUTIC PROPHYLACTIC/DX INJECTION [...] Injection, RHC Medicare Reviewed 09/03/2016 12:00 AM Rocephin 1 gram Injection, RHC Medicare Reviewed 03/11/2012 12:00 AM THER/PROPH/DIAG INJ SC/IM Reviewed 03/11/2012 12:00 AM Decadron, Per 1 Mg [facility]# [address]-16 Reviewed 03/11/2012 12:00 AM Depo-Medrol, Per 80 Mg [facility]#1548-2491-86 Reviewed 03/11/2012 12:00 AM Rocephin 1 gram [facility]#5209-5389-00 Reviewed 04/11/2012 12:00 AM Flu Injection 3 Years And Above [facility]# [address]-78 [facility] Reviewed 10/27/2012 12:00 AM THER/PROPH/DIAG INJ SC/IM Reviewed 10/27/2012 12:00 AM Decadron, Per 1 Mg [facility]# [address]-41 Reviewed 10/27/2012 12:00 AM Depo-Medrol, Per 80 Mg [facility]#9588-8847-73 Reviewed 12/26/2012 12:00 AM COMPLETE CBC W/AUTO DIFF WBC Reviewed 12/26/2012 12:00 AM COMPREHEN METABOLIC PANEL Reviewed 12/26/2012 12:00 AM LIPID PANEL Reviewed 12/26/2012 12:00 AM ASSAY THYROID STIM HORMONE Reviewed 08/27/2013 12:00 AM THER/PROPH/DIAG INJ SC/IM Reviewed 08/27/2013 12:00 AM Toradol 60 Mg [facility]#7128-5326-34 Reviewed 12/01/2013 12:00 AM THER/PROPH/DIAG INJ SC/IM Reviewed 12/01/2013 12:00 AM Toradol 60 Mg [facility]#5766-7428-54 Reviewed 07/17/2010 12:00 AM THER/PROPH/DIAG INJ SC/IM Reviewed 07/17/2010 12:00 AM Decadron Inj.6mg-([facility]) [facility] #[id number] Reviewed 07/17/2010 12:00 AM Depo-Medrol 120 Mg Im/[facility] 0009-223070 Reviewed 04/21/2014 12:00 AM IMMUNIZATION ADMIN Reviewed 04/21/2014 12:00 AM THER/PROPH/DIAG INJ SC/IM Reviewed 04/21/2014 12:00 AM Decadron, Per 1 Mg [facility]# [address]-24 Reviewed 04/21/2014 12:00 AM Depo-Medrol, Per 80 Mg [facility]#4154-2090-25 Reviewed 05/14/2014 12:00 AM THER/PROPH/DIAG INJ SC/IM Reviewed 05/14/2014 12:00 AM Decadron, Per 1 Mg [facility]# [address]-15 Reviewed 05/14/2014 12:00 AM Depo-Medrol, Per 80 Mg [facility]#3307-7101-48 Reviewed 07/05/2014 12:00 AM THER/PROPH/DIAG INJ SC/IM Reviewed 07/05/2014 12:00 AM Decadron, Per 1 Mg [facility]# [address]-16 Reviewed 07/05/2014 12:00 AM Rocephin 1 gram [facility]#9951-9302-54 Reviewed Results Summary Data and Description Results [...] per day for at least 30 years b 2016 11:22AM Panic attacks b 2016 11:22AM [...] Purulent postnasal drainage Sep 03 2016 11:27AM Payers Insurance Name Company Name Plan Name Plan Number Policy Number Policy Group Number Start Date Medicare RHC Medicare RHC [id number] N/A [place] 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 [facility] 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 [id number] N/A Medicare Part A Medicare - Lab/Xray [id number] N/A Medicare Part B Medicare Of [place] [id number] N/A [place] Medical Assistance Program [place] Medical Assistance Prog [id number] N/A Medicare Part A Medicare Part A [id number] N/A History of Encounters Visit Date Visit Type Provider 09/07/2016 Office visit ELOY BRITT 09/03/2016 Office visit ELOY BRITT 08/20/2016 Office visit ELOY BRITT 08/15/2016 Office visit ELOY BRITT 08/09/2016 Office visit ELOY BRITT 07/27/2016 Office visit ELOY AHUMADA PA 07/18/2016 [...] 03/22/2016 Hospital Jhony Phelps MD 03/22/2016 [facility] Mukul Lopez MD 12/15/2015 Office visit [...]
--- OUTSIDE RECORDS SUMMARY | 2018-01-13 12:45 | XMS REPORT ---
Author ELOY Fleming [facility] Address [address] [facility] [address] [place], [place] [address] Care Team Providers Care Tube Builder Name Role Phone ELOY AHUMADA PCP Unavailable [...] Reviewed 01/24/2015 12:00 AM Toradol 60 Mg [facility]#0086-2738-26 Reviewed 03/25/2015 12:00 AM Toradol 60 Mg [facility]#2131-1257-76 Reviewed 04/06/2015 12:00 AM MRI NECK SPINE W/O DYE Reviewed 05/27/2015 12:00 AM Decadron, Per 1 Mg [facility]# [address]-69 Reviewed 05/27/2015 12:00 AM Depo-Medrol, Per 80 Mg [facility]#4768-8699-11 Reviewed 05/27/2015 12:00 AM Rocephin 1 gram [facility]#0359-2002-78 Reviewed 02/26/2011 12:00 AM THER/PROPH/DIAG INJ SC/IM Reviewed 02/26/2011 12:00 AM Decadron Inj.1mg-([facility]) [facility] #[id number] Reviewed 02/26/2011 12:00 AM Depo-Medrol 80 Mg Im/[facility] 0009-471563 Reviewed 12/15/2015 12:00 AM Rocephin 1 gram [facility]#8839-5042-65 Reviewed 06/03/2016 12:00 AM THERAPEUTIC PROPHYLACTIC/DX INJECTION [...] 09/03/2016 12:00 AM Rocephin 1 gram Injection, [facility] Medicare Reviewed 03/11/2012 12:00 AM THER/PROPH/DIAG INJ SC/IM Reviewed 03/11/2012 12:00 AM Decadron, Per 1 Mg [facility]# [address]-98 Reviewed 03/11/2012 12:00 AM Depo-Medrol, Per 80 Mg [facility]#1339-3623-40 Reviewed 03/11/2012 12:00 AM Rocephin 1 gram [facility]#6314-7052-96 Reviewed 04/11/2012 12:00 AM Flu Injection 3 Years And Above [facility]# [address]-05 RHC Reviewed 10/27/2012 12:00 AM THER/PROPH/DIAG INJ SC/IM Reviewed 10/27/2012 12:00 AM Decadron, Per 1 Mg [facility]# [address]-64 Reviewed 10/27/2012 12:00 AM Depo-Medrol, Per 80 Mg [facility]#1530-2444-92 Reviewed 12/26/2012 12:00 AM COMPLETE CBC W/AUTO DIFF WBC Reviewed 12/26/2012 12:00 AM COMPREHEN METABOLIC PANEL Reviewed 12/26/2012 12:00 AM LIPID PANEL Reviewed 12/26/2012 12:00 AM ASSAY THYROID STIM HORMONE Reviewed 08/27/2013 12:00 AM THER/PROPH/DIAG INJ SC/IM Reviewed 08/27/2013 12:00 AM Toradol 60 Mg [facility]#4784-5038-41 Reviewed 12/01/2013 12:00 AM THER/PROPH/DIAG INJ SC/IM Reviewed 12/01/2013 12:00 AM Toradol 60 Mg [facility]#9469-4578-59 Reviewed 07/17/2010 12:00 AM THER/PROPH/DIAG INJ SC/IM Reviewed 07/17/2010 12:00 AM Decadron Inj.6mg-([facility]) [facility] #[id number] Reviewed 07/17/2010 12:00 AM Depo-Medrol 120 Mg Im/[facility] 0009-523329 Reviewed 04/21/2014 12:00 AM IMMUNIZATION ADMIN Reviewed 04/21/2014 12:00 AM THER/PROPH/DIAG INJ SC/IM Reviewed 04/21/2014 12:00 AM Decadron, Per 1 Mg [facility]# [address]-83 Reviewed 04/21/2014 12:00 AM Depo-Medrol, Per 80 Mg [facility]#4405-3617-54 Reviewed 05/14/2014 12:00 AM THER/PROPH/DIAG INJ SC/IM Reviewed 05/14/2014 12:00 AM Decadron, Per 1 Mg [facility]# [address]-05 Reviewed 05/14/2014 12:00 AM Depo-Medrol, Per 80 Mg [facility]#6916-0877-61 Reviewed 07/05/2014 12:00 AM THER/PROPH/DIAG INJ SC/IM Reviewed 07/05/2014 12:00 AM Decadron, Per 1 Mg [facility]# [address]-86 Reviewed 07/05/2014 12:00 AM Rocephin 1 gram [facility]#8124-6837-50 Reviewed Results Summary Date and Description Results [...] Number Start Date Medicare RHC Medicare C [id number] N/A [facility] 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 [facility] 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 [id number] N/A Medicare Part A Medicare - Lab/Xray [id number] N/A Medicare Part B Medicare Of [place] [id number] N/A [place] Medical Assistance [facility] Medical Assistance Pro [id number] N/A Medicare Part A Medicare Part A [id number] N/A History of Encounters Visit Date Visit [...]
--- NOTE | 2018-01-13 12:46 | Diagnostic Imaging Report ---
PROCEDURE: CT abdomen and pelvis with contrast. TECHNIQUE: Multiple contiguous axial images were obtained through the abdomen and pelvis after administration of intravenous contrast. INDICATION: Left upper flank pain. Bloating and diarrhea. COMPARISON: 06/21/2011 FINDINGS: There is increased AP diameter of the lung bases with large bullous formation in the left lower lobe. Calcified granuloma is seen in the left lung base. There is atelectasis/scarring in the right lung base. The heart is normal in size. No pericardial effusion is seen. No focal hepatic lesion is seen. Decreased attenuation along the gallbladder fossa may be due to fatty infiltration. Cholecystectomy clips are seen. Prominence of the common bile duct is likely due to postcholecystectomy change. The spleen is mildly lobulated, but otherwise appears normal. The pancreas is unremarkable. The adrenal glands appear normal. There is a small hiatal hernia. No bowel distention is seen. The appendix is not seen, and likely removed. There are diverticuli along the transverse, descending, and sigmoid colon. No diverticulitis is seen. No free fluid or free air is identified. There is calcific atherosclerosis present. Minimal degenerative change is seen in the spine. IMPRESSION: 1. No acute abdominopelvic abnormality is seen. 2. Small hiatal hernia. 3. Colonic diverticulosis without diverticulitis. 4. Prominent bulla in the left lower lobe. Dictated by: Dictated on workstation # [id number]
--- OUTSIDE RECORDS SUMMARY | 2018-01-13 12:47 | XMS REPORT ---
Author ELOY Fleming [facility] Address [address] [place], [place] [address] Care Team Providers Care Machine Adjuster Name Role Phone ELOY AHUMADA PCP Unavailable [...] HC BMI BSA BMI Percentile O2 Sat(%) 12/05/2016 2:21:00 PM 118 mmHg 74 mmHg [...] Reviewed 01/24/2015 12:00 AM Toradol 60 Mg [facility]#2203-4067-38 Reviewed 03/25/2015 12:00 AM Toradol 60 Mg [facility]#0287-1964-43 Reviewed 04/06/2015 12:00 AM MRI NECK SPINE W/O DYE Reviewed 05/27/2015 12:00 AM Decadron, Per 1 Mg [facility]# [address]-45 Reviewed 05/27/2015 12:00 AM Depo-Medrol, Per 80 Mg [facility]#1428-9843-80 Reviewed 05/27/2015 12:00 AM Rocephin 1 gram [facility]#0984-8243-15 Reviewed 02/26/2011 12:00 AM THER/PROPH/DIAG INJ SC/IM Reviewed 02/26/2011 12:00 AM Decadron Inj.1mg-([facility]) [facility] #[id number] Reviewed 02/26/2011 12:00 AM Depo-Medrol 80 Mg Im/[facility] Gerardo [facility] 0009-729708 Reviewed 12/15/2015 12:00 AM Rocephin 1 gram [facility]#7614-7893-23 Reviewed 06/03/2016 12:00 AM THERAPEUTIC PROPHYLACTIC/DX INJECTION [...] 12:00 AM Lasix, Up to 20 Mg [facility]#4230-2283-05 RHC Medicare Reviewed 12/03/2016 12:00 AM THERAPEUTIC PROPHYLACTIC/DX INJECTION SUBQ/IM Reviewed 12/03/2016 12:00 AM Decadron 8mg Injection, [facility] Medicare Reviewed 11/30/2016 12:00 AM THERAPEUTIC PROPHYLACTIC/DX INJECTION SUBQ/IM Reviewed 11/30/2016 12:00 AM Decadron 8mg Injection, [facility] Medicare Reviewed 11/30/2016 12:00 AM Rocephin 1 gram Injection, [facility] Medicare Reviewed 03/11/2012 12:00 AM THER/PROPH/DIAG INJ SC/IM Reviewed 03/11/2012 12:00 AM Decadron, Per 1 Mg [facility]# [address]-23 Reviewed 03/11/2012 12:00 AM Depo-Medrol, Per 80 Mg [facility]#0751-9785-00 Reviewed 03/11/2012 12:00 AM Rocephin 1 gram [facility]#6297-9155-23 Reviewed 04/11/2012 12:00 AM Flu Injection 3 Years And Above [facility]# [address]-73 [facility] Reviewed 10/27/2012 12:00 AM THER/PROPH/DIAG INJ SC/IM Reviewed 10/27/2012 12:00 AM Decadron, Per 1 Mg [facility]# [address]-99 Reviewed 10/27/2012 12:00 AM Depo-Medrol, Per 80 Mg [facility]#6003-8115-33 Reviewed 12/26/2012 12:00 AM COMPLETE CBC W/AUTO DIFF WBC Reviewed 12/26/2012 12:00 AM COMPREHEN METABOLIC PANEL Reviewed 12/26/2012 12:00 AM LIPID PANEL Reviewed 12/26/2012 12:00 AM ASSAY THYROID STIM HORMONE Reviewed 08/27/2013 12:00 AM THER/PROPH/DIAG INJ SC/IM Reviewed 08/27/2013 12:00 AM Toradol 60 Mg [facility]#2520-6457-99 Reviewed 12/01/2013 12:00 AM THER/PROPH/DIAG INJ SC/IM Reviewed 12/01/2013 12:00 AM Toradol 60 Mg [facility]#4309-3690-33 Reviewed 07/17/2010 12:00 AM THER/PROPH/DIAG INJ SC/IM Reviewed 07/17/2010 12:00 AM Decadron Inj.6mg-([facility]) [facility] #[id number] Reviewed 07/17/2010 12:00 AM Depo-Medrol 120 Mg Im/[facility] Gerardo [facility] 0009-501711 Reviewed 04/21/2014 12:00 AM IMMUNIZATION ADMIN Reviewed 04/21/2014 12:00 AM THER/PROPH/DIAG INJ SC/IM Reviewed 04/21/2014 12:00 AM Decadron, Per 1 Mg [facility]# [address]-55 Reviewed 04/21/2014 12:00 AM Depo-Medrol, Per 80 Mg [facility]#2666-1772-43 Reviewed 05/14/2014 12:00 AM THER/PROPH/DIAG INJ SC/IM Reviewed 05/14/2014 12:00 AM Decadron, Per 1 Mg [facility]# [address]-27 Reviewed 05/14/2014 12:00 AM Depo-Medrol, Per 80 Mg [facility]#3916-1532-43 Reviewed 07/05/2014 12:00 AM THER/PROPH/DIAG INJ SC/IM Reviewed 07/05/2014 12:00 AM Decadron, Per 1 Mg [facility]# [address]-80 Reviewed 07/05/2014 12:00 AM Rocephin 1 gram [facility]#4727-6608-39 Reviewed Results Summary Date and Description Results [...] breath on exertion Dec 05 2016 2:21PM Payers Insurance Name Company Name Plan Name Plan Number Policy Number Policy Group Number Start Date Medicare RHC Medicare RHC [id number] N/A [place] [employer]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 [place] 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 [id number] N/A Medicare Part A Medicare - Lab/Xray [id number] N/A Medicare Part B Medicare Of [place] [id number] N/A [place] Medical Assistance Program [place] Medical Assistance Prog [id number] N/A Medicare Part A Medicare Part A [id number] N/A History of Encounters Visit Date Visit Type Provider 12/05/2016 Office visit ELOY BRITT 12/03/2016 Office visit ELOY BRITT 11/30/2016 Office visit ELOY BRITT 11/29/2016 Office visit ELOY BRITT 11/16/2016 Office visit ELOY BRITT 11/01/2016 Office visit ELOY AHUMADA PA 10/25/2016 [...] BRITT 03/22/2016 Hospital Jhony Phelps MD 03/22/2016 [facility] Mukul Lopez MD 12/15/2015 Office visit ELOY [...] visit ELOY AHUMADA PA 02/26/2011 Office visit lEoy Ahumada PA-C 11/29/2010 Office visit Eloy Ahumada PA-C 07/17/2010 Office visit Eloy Ahumada PA-C 01/17/2010 Office visit Eloy Ahumada PA-C 12/30/2009 Office visit Eloy Ahumada PA-C 07/22/2009 Office visit Eloy Ahumada PA-C 06/20/2009 Office visit Eloy Ahumada PA-C 02/18/2009 Office visit Eloy Ahumada PA-C
--- OUTSIDE RECORDS SUMMARY | 2018-01-13 12:53 | XMS REPORT ---
Author Author ELOY AHUMADA [facility] Address [address] [place], [place] [id number] Care Team Providers Care Tufting Creeler Name Role Phone ELOY AHUMADA PCP Unavailable [...] Active 07/30/2016 Feelings of worthlessness Active 07/30/2016 Vital Signs Date Time BP-Sys(mm[Hg] BP-Zaynab(mm[Hg]) HR(bpm) RR(rpm) Temp WT HT HC BMI BSA BMI Percentile O2 Sat(%) 07/27/2016 12:12:00 PM 125 mmHg 62 mmHg [...] Reviewed 01/24/2015 12:00 AM Toradol 60 Mg [facility]#9334-4736-91 Reviewed 03/25/2015 12:00 AM Toradol 60 Mg [facility]#5408-3585-77 Reviewed 04/06/2015 12:00 AM MRI NECK SPINE W/O DYE Reviewed 05/27/2015 12:00 AM Decadron, Per 1 Mg [facility]# [address]-41 Reviewed 05/27/2015 12:00 AM Depo-Medrol, Per 80 Mg [facility]#8677-8585-02 Reviewed 05/27/2015 12:00 AM Rocephin 1 gram [facility]#6908-3769-58 Reviewed 02/26/2011 12:00 AM THER/PROPH/DIAG INJ SC/IM Reviewed 02/26/2011 12:00 AM Decadron Inj.1mg-([facility]) [facility] #[id number] Reviewed 02/26/2011 12:00 AM Depo-Medrol 80 Mg Im/[facility] [id number] Reviewed 12/15/2015 12:00 AM Rocephin 1 gram [facility]#2311-4839-63 Reviewed 06/03/2016 12:00 AM THERAPEUTIC PROPHYLACTIC/DX INJECTION SUBQ/IM Reviewed 06/03/2016 12:00 AM Decadron 8mg Injection, R[facility] Medicare Reviewed 06/27/2016 12:00 AM COMPREHEN METABOLIC PANEL Returned 06/27/2016 12:00 AM URINALYSIS AUTO W/SCOPE Returned 03/11/2012 12:00 AM THER/PROPH/DIAG INJ SC/IM Reviewed 03/11/2012 12:00 AM Decadron, Per 1 Mg [facility]# [address]-57 Reviewed 03/11/2012 12:00 AM Depo-Medrol, Per 80 Mg [facility]#9170-8634-32 Reviewed 03/11/2012 12:00 AM Rocephin 1 gram [facility]#8562-9534-68 Reviewed 04/11/2012 12:00 AM Flu Injection 3 Years And Above [facility]# [address]-34 RHC Reviewed 10/27/2012 12:00 AM THER/PROPH/DIAG INJ SC/IM Reviewed 10/27/2012 12:00 AM Decadron, Per 1 Mg [facility]# [address]-68 Reviewed 10/27/2012 12:00 AM Depo-Medrol, Per 80 Mg [facility]#5688-7935-97 Reviewed 12/26/2012 12:00 AM COMPLETE CBC W/AUTO DIFF WBC Reviewed 12/26/2012 12:00 AM COMPREHEN METABOLIC PANEL Reviewed 12/26/2012 12:00 AM LIPID PANEL Reviewed 12/26/2012 12:00 AM ASSAY THYROID STIM HORMONE Reviewed 08/27/2013 12:00 AM THER/PROPH/DIAG INJ SC/IM Reviewed 08/27/2013 12:00 AM Toradol 60 Mg [facility]#8992-0186-40 Reviewed 12/01/2013 12:00 AM THER/PROPH/DIAG INJ SC/IM Reviewed 12/01/2013 12:00 AM Toradol 60 Mg [facility]#4670-2569-22 Reviewed 07/17/2010 12:00 AM THER/PROPH/DIAG INJ SC/IM Reviewed 07/17/2010 12:00 AM Decadron Inj.6mg-([facility]) [facility] #[id number] Reviewed 07/17/2010 12:00 AM Depo-Medrol 120 Mg Im/[facility] 0009-342125 Reviewed 04/21/2014 12:00 AM IMMUNIZATION ADMIN Reviewed 04/21/2014 12:00 AM THER/PROPH/DIAG INJ SC/IM Reviewed 04/21/2014 12:00 AM Decadron, Per 1 Mg [facility]# [address]-54 Reviewed 04/21/2014 12:00 AM Depo-Medrol, Per 80 Mg [facility]#4319-8483-67 Reviewed 05/14/2014 12:00 AM THER/PROPH/DIAG INJ SC/IM Reviewed 05/14/2014 12:00 AM Decadron, Per 1 Mg [facility]# [address]-92 Reviewed 05/14/2014 12:00 AM Depo-Medrol, Per 80 Mg [facility]#0609-3279-17 Reviewed 07/05/2014 12:00 AM THER/PROPH/DIAG INJ SC/IM Reviewed 07/05/2014 12:00 AM Decadron, Per 1 Mg [facility]# [address]-15 Reviewed 07/05/2014 12:00 AM Rocephin 1 gram [facility]#3909-5674-10 Reviewed Results Summary Data and Description Results [...] Depressive Disorder 07/30/2016 Feelings of worthlessness 07/30/2016 Irritable Bowel Syndrome Nov 29 2010 10:16AM [...] Feelings of worthlessness Jul 27 2016 12:13PM Payers Insurance Name Company Name Plan Name Plan Number Policy Number Policy Group Number Start Date Medicare RHC Medicare RHC [id number] N/A [place] [employer] Prog - RHC [place] [employer] Prog - RHC [id number] N/A Medicare Part A Medicare - Lab/Xray [id number] N/A Medicare Part B Medicare Of [place] [id number] N/A [place] Medical Assistance Program [place] [employer] Prog [id number] N/A Medicare Part A Medicare Part A [id number] N/A History of Encounters Visit Date Visit [...] BRITT 03/22/2016 Hospital Jhony Phelps MD 03/22/2016 [facility] Mukul Lopez MD 12/15/2015 Office [...] Eloy Ahumada PA-C 11/29/2010 Office visit Eloy BRITT-C 07/17/2010 Office visit Eloy BRITT-C 01/17/2010 Office visit Eloy BRITT-C 12/30/2009 Office visit Eloy BRITT-C 07/22/2009 Office visit Eloy BRITT-C 06/20/2009 Office visit Eloy BRITT-C 02/18/2009 Office visit Eloy Ahumada PA-C
[2018-01-13] MEDS: NS IV 500 ML 500 ML IV SCH (12:55)
--- OUTSIDE RECORDS SUMMARY | 2018-01-13 12:57 | XMS REPORT ---
Author ELOY Fleming [facility] Address [address] [place], [place] [address] Care Team Providers Care Multi Care Technician Name Role Phone ELOY AHUMADA PCP [...] HC BMI BSA BMI Percentile O2 Sat(%) 12/28/2016 9:51:00 AM 128 mmHg 71 mmHg [...] AM Toradol 60 Mg [facility]#7273-6585-59 Reviewed 03/25/2015 12:00 AM Toradol 60 Mg [facility]#9635-1462-02 Reviewed 04/06/2015 12:00 AM MRI NECK SPINE W/O DYE Reviewed 05/27/2015 12:00 AM Decadron, Per 1 Mg [facility]# [address]-63 Reviewed 05/27/2015 12:00 AM Depo-Medrol, Per 80 Mg [facility]#5798-8343-48 Reviewed 05/27/2015 12:00 AM Rocephin 1 gram [facility]#1844-6355-20 Reviewed 02/26/2011 12:00 AM THER/PROPH/DIAG INJ SC/IM Reviewed 02/26/2011 12:00 AM Decadron Inj.1mg-([facility]) [facility] #[id number] Reviewed 02/26/2011 12:00 AM Depo-Medrol 80 Mg Im/[facility] [id number] Reviewed 12/15/2015 12:00 AM Rocephin 1 gram [facility]#7864-1620-03 Reviewed 06/03/2016 12:00 AM THERAPEUTIC PROPHYLACTIC/DX INJECTION [...] Up to 20 Mg [facility]#1984-9061-79 RHC Medicare Reviewed 12/03/2016 12:00 AM THERAPEUTIC [...] Per 1 Mg [facility]# [address]-18 Reviewed 03/11/2012 12:00 AM Depo-Medrol, Per 80 Mg [facility]#4246-4663-04 Reviewed 03/11/2012 12:00 AM Rocephin 1 gram [facility]#0831-3273-26 Reviewed 04/11/2012 12:00 AM Flu Injection 3 Years And Above [facility]# [address]-24 [facility] Reviewed 10/27/2012 12:00 AM THER/PROPH/DIAG INJ SC/IM Reviewed 10/27/2012 12:00 AM Decadron, Per 1 Mg [facility]# [address]-71 Reviewed 10/27/2012 12:00 AM Depo-Medrol, Per 80 Mg [facility]#3286-1647-40 Reviewed 12/26/2012 12:00 AM COMPLETE CBC W/AUTO DIFF WBC Reviewed 12/26/2012 12:00 AM COMPREHEN METABOLIC PANEL Reviewed 12/26/2012 12:00 AM LIPID PANEL Reviewed 12/26/2012 12:00 AM ASSAY THYROID STIM HORMONE Reviewed 08/27/2013 12:00 AM THER/PROPH/DIAG INJ SC/IM Reviewed 08/27/2013 12:00 AM Toradol 60 Mg [facility]#7191-3467-26 Reviewed 12/01/2013 12:00 AM THER/PROPH/DIAG INJ SC/IM Reviewed 12/01/2013 12:00 AM Toradol 60 Mg [facility]#2811-3789-89 Reviewed 07/17/2010 12:00 AM THER/PROPH/DIAG INJ SC/IM Reviewed 07/17/2010 12:00 AM Decadron Inj.6mg-([facility]) [facility] #[id number] Reviewed 07/17/2010 12:00 AM Depo-Medrol 120 Mg Im/[facility] 0009-213334 Reviewed 04/21/2014 12:00 AM IMMUNIZATION ADMIN Reviewed 04/21/2014 12:00 AM THER/PROPH/DIAG INJ SC/IM Reviewed 04/21/2014 12:00 AM Decadron, Per 1 Mg [facility]# [address]-45 Reviewed 04/21/2014 12:00 AM Depo-Medrol, Per 80 Mg [facility]#7207-2275-28 Reviewed 05/14/2014 12:00 AM THER/PROPH/DIAG INJ SC/IM Reviewed 05/14/2014 12:00 AM Decadron, Per 1 Mg [facility]# [address]-09 Reviewed 05/14/2014 12:00 AM Depo-Medrol, Per 80 Mg [facility]#3003-2886-77 Reviewed 07/05/2014 12:00 AM THER/PROPH/DIAG INJ SC/IM Reviewed 07/05/2014 12:00 AM Decadron, Per 1 Mg [facility]# [address]-38 Reviewed 07/05/2014 12:00 AM Rocephin 1 gram [facility]#6588-2050-22 Reviewed Results Summary Date and Description Results [...] breath on exertion Dec 28 2016 9:51AM Payers Insurance Name Company Name Plan Name Plan Number Policy Number Policy Group Number Start Date Medicare RHC Medicare RHC [id number] N/A [place] [employer]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 [place] 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 [id number] N/A Medicare Part A Medicare - Lab/Xray [id number] N/A Medicare Part B Medicare Of [place] [id number] N/A [place] Medical Assistance Program [place] Medical Assistance Prog [id number] N/A Medicare Part A Medicare Part A [id number] N/A History of Encounters Visit Date Visit Type Provider 12/28/2016 Office visit ELOY BRITT 12/25/2016 Office [...] visit ELOY BRITT 07/06/2016 Office visit ELOY AHUMADA PA 06/29/2016 Office visit ELOY AHUMADA PA 06/26/2016 Office visit ELOY AHUMADA PA 06/03/2016 Office visit ELOY AHUMADA PA 05/31/2016 Office visit ELOY AHUMADA PA 05/14/2016 Office visit ELOY AHUMADA PA 04/17/2016 Office visit ELOY AHUMADA PA 04/02/2016 Office visit ELOY AHUMADA PA 03/22/2016 Hospital Jhony Phelps MD 03/22/2016 [facility] [...]
--- OUTSIDE RECORDS SUMMARY | 2018-01-13 13:04 | XMS REPORT ---
Author Author ELOY AHUMADA [facility] Address [address] [place], [place] [address] Care Team Providers Care Dye Range Tender Name Role Phone ELOY AHUMADA PCP Unavailable ELOY AHUMADA PreferredProvider Unavailable Allergies and Adverse Reactions Name Reaction Notes Depo-Medrol Pain, muscle spasms, insomnia Decadron Pain, Muscle spasms, insomnia Plan of Treatment Planned Activity Comments Planned Date Planned Time Plan/Goal BNP 05/15/2016 12:00 AM CMP 10/18/2016 12:00 AM BNP 11/16/2016 12:00 AM Injection,Subcutaneous/Intramuscul, RHC Medicare 11/30/2016 12:00 AM Aerosol Tx 11/30/2016 12:00 AM Injection,Subcutaneous/Intramuscul, [facility] Medicare 12/03/2016 12:00 AM cervical pain 06/15/2015 11:00 AM [...] AM Toradol 60 Mg [facility]#4547-7463-84 Reviewed 03/25/2015 12:00 AM Toradol 60 Mg [facility]#3207-8309-20 Reviewed 04/06/2015 12:00 AM MRI NECK SPINE W/O DYE Reviewed 05/27/2015 12:00 AM Decadron, Per 1 Mg [facility]# [address]-28 Reviewed 05/27/2015 12:00 AM Depo-Medrol, Per 80 Mg [facility]#9245-0116-05 Reviewed 05/27/2015 12:00 AM Rocephin 1 gram [facility]#8704-9380-00 Reviewed 02/26/2011 12:00 AM THER/PROPH/DIAG INJ SC/IM Reviewed 02/26/2011 12:00 AM Decadron Inj.1mg-([facility]) [facility] #[id number] Reviewed 02/26/2011 12:00 AM Depo-Medrol 80 Mg Im/[facility] Gerardo [facility] 0009-152423 Reviewed 12/15/2015 12:00 AM Rocephin 1 gram [facility]#4562-3151-21 Reviewed 06/03/2016 12:00 AM THERAPEUTIC PROPHYLACTIC/DX INJECTION SUBQ/IM Reviewed 06/03/2016 12:00 AM Decadron 8mg Injection, [facility] Medicare Reviewed 06/27/2016 12:00 AM COMPREHEN METABOLIC PANEL Returned 06/27/2016 12:00 AM URINALYSIS AUTO W/SCOPE Returned 07/05/2016 12:00 AM COMPREHEN METABOLIC PANEL Reviewed 07/12/2016 12:00 AM COMPREHEN METABOLIC PANEL Reviewed 07/23/2016 12:00 AM COMPREHEN METABOLIC PANEL Reviewed 09/07/2016 12:00 AM THERAPEUTIC PROPHYLACTIC/DX INJECTION SUBQ/IM Reviewed 09/07/2016 12:00 AM Rocephin 1 gram Injection, [facility] Medicare Reviewed 09/03/2016 12:00 AM THERAPEUTIC PROPHYLACTIC/DX INJECTION SUBQ/IM Reviewed 09/03/2016 12:00 AM Rocephin 1 gram Injection, [facility] Medicare Reviewed 10/22/2016 12:00 AM THERAPEUTIC PROPHYLACTIC/DX INJECTION SUBQ/IM Reviewed 10/18/2016 12:00 AM Lasix, Up to 20 Mg [facility]#1905-7663-44 RHC Medicare Reviewed 03/11/2012 12:00 AM THER/PROPH/DIAG INJ SC/IM Reviewed 03/11/2012 12:00 AM Decadron, Per 1 Mg [facility]# [address]-51 Reviewed 03/11/2012 12:00 AM Depo-Medrol, Per 80 Mg [facility]#3336-8672-02 Reviewed 03/11/2012 12:00 AM Rocephin 1 gram [facility]#9229-7783-89 Reviewed 04/11/2012 12:00 AM Flu Injection 3 Years And Above [facility]# [address]-21 [facility] Reviewed 10/27/2012 12:00 AM THER/PROPH/DIAG INJ SC/IM Reviewed 10/27/2012 12:00 AM Decadron, Per 1 Mg [facility]# [address]-83 Reviewed 10/27/2012 12:00 AM Depo-Medrol, Per 80 Mg [facility]#2123-8769-55 Reviewed 12/26/2012 12:00 AM COMPLETE CBC W/AUTO DIFF WBC Reviewed 12/26/2012 12:00 AM COMPREHEN METABOLIC PANEL Reviewed 12/26/2012 12:00 AM LIPID PANEL Reviewed 12/26/2012 12:00 AM ASSAY THYROID STIM HORMONE Reviewed 08/27/2013 12:00 AM THER/PROPH/DIAG INJ SC/IM Reviewed 08/27/2013 12:00 AM Toradol 60 Mg [facility]#2369-8704-55 Reviewed 12/01/2013 12:00 AM THER/PROPH/DIAG INJ SC/IM Reviewed 12/01/2013 12:00 AM Toradol 60 Mg [facility]#8140-9839-97 Reviewed 07/17/2010 12:00 AM THER/PROPH/DIAG INJ SC/IM Reviewed 07/17/2010 12:00 AM Decadron Inj.6mg-([facility]) [facility] #[id number] Reviewed 07/17/2010 12:00 AM Depo-Medrol 120 Mg Im/[facility] 0009-188730 Reviewed 04/21/2014 12:00 AM IMMUNIZATION ADMIN Reviewed 04/21/2014 12:00 AM THER/PROPH/DIAG INJ SC/IM Reviewed 04/21/2014 12:00 AM Decadron, Per 1 Mg [facility]# [address]-09 Reviewed 04/21/2014 12:00 AM Depo-Medrol, Per 80 Mg [facility]#0888-1378-74 Reviewed 05/14/2014 12:00 AM THER/PROPH/DIAG INJ SC/IM Reviewed 05/14/2014 12:00 AM Decadron, Per 1 Mg [place]# [address]-87 Reviewed 05/14/2014 12:00 AM Depo-Medrol, Per 80 Mg [facility]#3757-3437-94 Reviewed 07/05/2014 12:00 AM THER/PROPH/DIAG INJ SC/IM Reviewed 07/05/2014 12:00 AM Decadron, Per 1 Mg [facility]# [address]-18 Reviewed 07/05/2014 12:00 AM Rocephin 1 gram [facility]#3642-1068-81 Reviewed Results Summary Date and Description Results [...] Number Start Date Medicare RHC Medicare RHC [id number] N/A [place] [employer]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
--- OUTSIDE RECORDS SUMMARY | 2018-01-13 13:11 | XMS REPORT ---
Author ELOY Fleming [facility] Address [address] [place], [place] [address] Care Team Providers Care Supervisor Microbiology Technologists Name Role Phone ELOY AHUMADA PCP Unavailable [...] Reviewed 01/24/2015 12:00 AM Toradol 60 Mg [facility]#9557-1565-19 Reviewed 03/25/2015 12:00 AM Toradol 60 Mg [facility]#8134-6479-48 Reviewed 04/06/2015 12:00 AM MRI NECK SPINE W/O DYE Reviewed 05/27/2015 12:00 AM Decadron, Per 1 Mg [facility]# [address]-69 Reviewed 05/27/2015 12:00 AM Depo-Medrol, Per 80 Mg [facility]#1971-67[address]-53 Reviewed 05/27/2015 12:00 AM Rocephin 1 gram [facility]#7971-6248-39 Reviewed 02/26/2011 12:00 AM THER/PROPH/DIAG INJ SC/IM Reviewed 02/26/2011 12:00 AM Decadron Inj.1mg-([facility]) [facility] #[id number] Reviewed 02/26/2011 12:00 AM Depo-Medrol 80 Mg Im/[facility] Ger[facility] 0009-101426 Reviewed 12/15/2015 12:00 AM Rocephin 1 gram [facility]#9730-9122-26 Reviewed 06/03/2016 12:00 AM THERAPEUTIC PROPHYLACTIC/DX INJECTION SUBQ/IM Reviewed 06/03/2016 12:00 AM Decadron 8mg Injection, [facility] Medicare Reviewed 06/27/2016 12:00 AM COMPREHEN METABOLIC PANEL Returned 06/27/2016 12:00 AM URINALYSIS AUTO W/SCOPE Returned 03/11/2012 12:00 AM THER/PROPH/DIAG INJ SC/IM Reviewed 03/11/2012 12:00 AM Decadron, Per 1 Mg [facility]# [address]-33 Reviewed 03/11/2012 12:00 AM Depo-Medrol, Per 80 Mg [facility]#0638-6527-30 Reviewed 03/11/2012 12:00 AM Rocephin 1 gram [facility]#5678-0633-88 Reviewed 04/11/2012 12:00 AM Flu Injection 3 Years And Above [facility]# [address]-03 [facility] Reviewed 10/27/2012 12:00 AM THER/PROPH/DIAG INJ SC/IM Reviewed 10/27/2012 12:00 AM Decadron, Per 1 Mg [facility]# [address]-16 Reviewed 10/27/2012 12:00 AM Depo-Medrol, Per 80 Mg [facility]#0898-6162-89 Reviewed 12/26/2012 12:00 AM COMPLETE CBC W/AUTO DIFF WBC Reviewed 12/26/2012 12:00 AM COMPREHEN METABOLIC PANEL Reviewed 12/26/2012 12:00 AM LIPID PANEL Reviewed 12/26/2012 12:00 AM ASSAY THYROID STIM HORMONE Reviewed 08/27/2013 12:00 AM THER/PROPH/DIAG INJ SC/IM Reviewed 08/27/2013 12:00 AM Toradol 60 Mg [facility]#2427-0736-38 Reviewed 12/01/2013 12:00 AM THER/PROPH/DIAG INJ SC/IM Reviewed 12/01/2013 12:00 AM Toradol 60 Mg [facility]#1928-7074-84 Reviewed 07/17/2010 12:00 AM THER/PROPH/DIAG INJ SC/IM Reviewed 07/17/2010 12:00 AM Decadron Inj.6mg-([facility]) [facility] #[id number] Reviewed 07/17/2010 12:00 AM Depo-Medrol 120 Mg Im/[facility] Gerardo [facility] 0009-034581 Reviewed 04/21/2014 12:00 AM IMMUNIZATION ADMIN Reviewed 04/21/2014 12:00 AM THER/PROPH/DIAG INJ SC/IM Reviewed 04/21/2014 12:00 AM Decadron, Per 1 Mg [facility]# [address]-37 Reviewed 04/21/2014 12:00 AM Depo-Medrol, Per 80 Mg [facility]#9634-5569-87 Reviewed 05/14/2014 12:00 AM THER/PROPH/DIAG INJ SC/IM Reviewed 05/14/2014 12:00 AM Decadron, Per 1 Mg [facility]# [address]-73 Reviewed 05/14/2014 12:00 AM Depo-Medrol, Per 80 Mg [facility]#5644-8451-01 Reviewed 07/05/2014 12:00 AM THER/PROPH/DIAG INJ SC/IM Reviewed 07/05/2014 12:00 AM Decadron, Per 1 Mg [facility]# [address]-71 Reviewed 07/05/2014 12:00 AM Rocephin 1 gram [facility]#2921-2109-55 Reviewed Results Summary Data and Description Results [...] Unresponsive to treatment Jun 29 2016 11:22AM Payers Insurance Name Company Name Plan Name Plan Number Policy Number Policy Group Number Start Date Medicare RHC Medicare RHC [id number] N/A [facility] [id number] N/A Medicare Part A Medicare - Lab/Xray [id number] N/A Medicare Part B Medicare Of [place] [id number] N/A [place] Medical Assistance [facility] Medical Assistance Prog [id number] N/A Medicare Part A Medicare Part A [id number] N/A History of Encounters Visit Date Visit [...] Office visit ELOY BRITT 07/05/2015 Office visit LEOY AHUMADA PA 06/09/2015 Office visit ELOY BRITT [...]
--- OUTSIDE RECORDS SUMMARY | 2018-01-13 13:14 | XMS REPORT ---
Author ELOY Fleming [facility] Address [address] [place], [place] [address] Care Team Providers Care Driver Utility Worker Name Role Phone ELOY AHUMADA PCP [...] HC BMI BSA BMI Percentile O2 Sat(%) 01/21/2017 12:11:00 PM 138 mmHg 74 mmHg [...] Toradol 60 Mg [facility]#4763-4625-53 Reviewed 03/25/2015 12:00 AM Toradol 60 Mg [facility]#5138-0299-40 Reviewed 04/06/2015 12:00 AM MRI NECK SPINE W/O DYE Reviewed 05/27/2015 12:00 AM Decadron, Per 1 Mg [facility]# [address]-14 Reviewed 05/27/2015 12:00 AM Depo-Medrol, Per 80 Mg [facility]#7847-3998-28 Reviewed 05/27/2015 12:00 AM Rocephin 1 gram [facility]#7998-9511-17 Reviewed 02/26/2011 12:00 AM THER/PROPH/DIAG INJ SC/IM Reviewed 02/26/2011 12:00 AM Decadron Inj.1mg-([facility]) [facility] #[id number] Reviewed 02/26/2011 12:00 AM Depo-Medrol 80 Mg Im/[facility] [id number] Reviewed 12/15/2015 12:00 AM Rocephin 1 gram [facility]#4617-5031-06 Reviewed 06/03/2016 12:00 AM THERAPEUTIC PROPHYLACTIC/DX INJECTION [...] 09/07/2016 12:00 AM Rocephin 1 gram Injection, [facility] Medicare Reviewed 09/03/2016 12:00 AM THERAPEUTIC PROPHYLACTIC/DX INJECTION SUBQ/IM Reviewed 09/03/2016 12:00 AM Rocephin 1 gram Injection, [facility] Medicare Reviewed 10/22/2016 12:00 AM THERAPEUTIC PROPHYLACTIC/DX INJECTION SUBQ/IM Reviewed 10/18/2016 12:00 AM Lasix, Up to 20 Mg [facility]#4461-0526-80 [facility] Medicare Reviewed 11/16/2016 12:00 AM ASSAY [...] 1 Mg [facility]# [address]-08 Reviewed 03/11/2012 12:00 AM Depo-Medrol, Per 80 Mg [facility]#5138-5168-52 Reviewed 03/11/2012 12:00 AM Rocephin 1 gram [facility]#8208-6205-80 Reviewed 04/11/2012 12:00 AM Flu Injection 3 Years And Above [facility]# [address]-30 [facility] Reviewed 10/27/2012 12:00 AM THER/PROPH/DIAG INJ SC/IM Reviewed 10/27/2012 12:00 AM Decadron, Per 1 Mg [facility]# [address]-71 Reviewed 10/27/2012 12:00 AM Depo-Medrol, Per 80 Mg [facility]#1202-8408-36 Reviewed 12/26/2012 12:00 AM COMPLETE CBC W/AUTO DIFF WBC Reviewed 12/26/2012 12:00 AM COMPREHEN METABOLIC PANEL Reviewed 12/26/2012 12:00 AM LIPID PANEL Reviewed 12/26/2012 12:00 AM ASSAY THYROID STIM HORMONE Reviewed 08/27/2013 12:00 AM THER/PROPH/DIAG INJ SC/IM Reviewed 08/27/2013 12:00 AM Toradol 60 Mg [place]#5238-5646-73 Reviewed 12/01/2013 12:00 AM THER/PROPH/DIAG INJ SC/IM Reviewed 12/01/2013 12:00 AM Toradol 60 Mg [facility]#5341-7418-82 Reviewed 07/17/2010 12:00 AM THER/PROPH/DIAG INJ SC/IM Reviewed 07/17/2010 12:00 AM Decadron Inj.6mg-([facility]) [facility] #[id number] Reviewed 07/17/2010 12:00 AM Depo-Medrol 120 Mg Im/[facility] [id number] Reviewed 04/21/2014 12:00 AM IMMUNIZATION ADMIN Reviewed 04/21/2014 12:00 AM THER/PROPH/DIAG INJ SC/IM Reviewed 04/21/2014 12:00 AM Decadron, Per 1 Mg [facility]# [address]-10 Reviewed 04/21/2014 12:00 AM Depo-Medrol, Per 80 Mg [facility]#8158-3506-09 Reviewed 05/14/2014 12:00 AM THER/PROPH/DIAG INJ SC/IM Reviewed 05/14/2014 12:00 AM Decadron, Per 1 Mg [place]# [address]-39 Reviewed 05/14/2014 12:00 AM Depo-Medrol, Per 80 Mg [facility]#0548-4183-07 Reviewed 07/05/2014 12:00 AM THER/PROPH/DIAG INJ SC/IM Reviewed 07/05/2014 12:00 AM Decadron, Per 1 Mg [facility]# [address]-78 Reviewed 07/05/2014 12:00 AM Rocephin 1 gram [facility]#6254-5235-88 Reviewed Results Summary Date and Description Results [...] Anxiety about health Jan 09 2017 2:23PM Payers Insurance Name Company Name Plan Name Plan Number Policy Number Policy Group Number Start Date Medicare RHC Medicare RHC [id number] N/A [facility] 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 [facility] 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 [id number] N/A Medicare Part A Medicare - Lab/Xray [id number] N/A Medicare Part B Medicare Of [place] [id number] N/A [place] Medical Assistance [facility] Medical Assistance Pro [id number] N/A Medicare Part A Medicare Part A [id number] N/A History of Encounters Visit Date Visit Type Provider 01/21/2017 Office visit ELOY BRITT 01/09/2017 Office [...] PA 03/22/2016 Hospital Jhony Phelps MD 03/22/2016 [facility] Mukul Lopez MD 12/15/2015 Office visit [...] ELOY AHUMADA PA 02/26/2011 Office visit Eloy BRITT-C 11/29/2010 Office visit Eloy BRITT-C 07/17/2010 Office visit Eloy BRITT-C 01/17/2010 Office visit Eloy BRITT-C 12/30/2009 Office visit Eloy BRITT-C 07/22/2009 Office visit Eloy BRITT-C 06/20/2009 Office visit Eloy BRITT-C 02/18/2009 Office visit Eloy Ahumada PA-C
--- OUTSIDE RECORDS SUMMARY | 2018-01-13 13:16 | XMS REPORT ---
Author ELOY Fleming [facility] Address [address] [place], [place] [address] Care Team Providers Care Instrument Lens Generator Name Role Phone ELOY AHUMADA PCP Unavailable [...] per day in the morning and evening Medrol ([place]) 4 mg oral tablets,dose pack [...] HC BMI BSA BMI Percentile O2 Sat(%) 11/16/2016 10:00:00 AM 110 mmHg 66 mmHg [...] AM Toradol 60 Mg [facility]#9760-5187-18 Reviewed 03/25/2015 12:00 AM Toradol 60 Mg [facility]#7846-0492-16 Reviewed 04/06/2015 12:00 AM MRI NECK SPINE W/O DYE Reviewed 05/27/2015 12:00 AM Decadron, Per 1 Mg [facility]# [address]-83 Reviewed 05/27/2015 12:00 AM Depo-Medrol, Per 80 Mg [facility]#5739-2340-56 Reviewed 05/27/2015 12:00 AM Rocephin 1 gram [facility]#7484-3566-77 Reviewed 02/26/2011 12:00 AM THER/PROPH/DIAG INJ SC/IM Reviewed 02/26/2011 12:00 AM Decadron Inj.1mg-([facility] #[id number] Reviewed 02/26/2011 12:00 AM Depo-Medrol 80 Mg Im/[facility] 0009-702836 Reviewed 12/15/2015 12:00 AM Rocephin 1 gram [facility]#2349-0819-90 Reviewed 06/03/2016 12:00 AM THERAPEUTIC PROPHYLACTIC/DX INJECTION [...] Up to 20 Mg [facility]#1595-7796-67 [facility] Medicare Reviewed 03/11/2012 12:00 AM THER/PROPH/DIAG INJ SC/IM Reviewed 03/11/2012 12:00 AM Decadron, Per 1 Mg [facility]# [address]-24 Reviewed 03/11/2012 12:00 AM Depo-Medrol, Per 80 Mg [facility]#5739-4117-67 Reviewed 03/11/2012 12:00 AM Rocephin 1 gram [facility]#3857-7171-23 Reviewed 04/11/2012 12:00 AM Flu Injection 3 Years And Above [facility]# [address]-21 [facility] Reviewed 10/27/2012 12:00 AM THER/PROPH/DIAG INJ SC/IM Reviewed 10/27/2012 12:00 AM Decadron, Per 1 Mg [facility]# [address]-47 Reviewed 10/27/2012 12:00 AM Depo-Medrol, Per 80 Mg [facility]#8782-6011-41 Reviewed 12/26/2012 12:00 AM COMPLETE CBC W/AUTO DIFF WBC Reviewed 12/26/2012 12:00 AM COMPREHEN METABOLIC PANEL Reviewed 12/26/2012 12:00 AM LIPID PANEL Reviewed 12/26/2012 12:00 AM ASSAY THYROID STIM HORMONE Reviewed 08/27/2013 12:00 AM THER/PROPH/DIAG INJ SC/IM Reviewed 08/27/2013 12:00 AM Toradol 60 Mg [facility]#5710-9792-19 Reviewed 12/01/2013 12:00 AM THER/PROPH/DIAG INJ SC/IM Reviewed 12/01/2013 12:00 AM Toradol 60 Mg [facility]#0266-7220-40 Reviewed 07/17/2010 12:00 AM THER/PROPH/DIAG INJ SC/IM Reviewed 07/17/2010 12:00 AM Decadron Inj.6mg-([facility] #[id number] Reviewed 07/17/2010 12:00 AM Depo-Medrol 120 Mg Im/[facility] 0009-794070 Reviewed 04/21/2014 12:00 AM IMMUNIZATION ADMIN Reviewed 04/21/2014 12:00 AM THER/PROPH/DIAG INJ SC/IM Reviewed 04/21/2014 12:00 AM Decadron, Per 1 Mg [facility]# [address]-96 Reviewed 04/21/2014 12:00 AM Depo-Medrol, Per 80 Mg [facility]#2056-5355-48 Reviewed 05/14/2014 12:00 AM THER/PROPH/DIAG INJ SC/IM Reviewed 05/14/2014 12:00 AM Decadron, Per 1 Mg [facility]# [address]-92 Reviewed 05/14/2014 12:00 AM Depo-Medrol, Per 80 Mg [facility]#4338-0656-37 Reviewed 07/05/2014 12:00 AM THER/PROPH/DIAG INJ SC/IM Reviewed 07/05/2014 12:00 AM Decadron, Per 1 Mg [facility]# [address]-28 Reviewed 07/05/2014 12:00 AM Rocephin 1 gram [facility]#0195-0586-75 Reviewed Results Summary Date and Description Results [...] of both hands Nov 23 2016 12:02PM Payers Insurance Name Company Name Plan Name Plan Number Policy Number Policy Group Number Start Date Medicare RHC Medicare RHC [id number] N/A [place] 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
--- OUTSIDE RECORDS SUMMARY | 2018-01-13 13:24 | XMS REPORT ---
Author ELOY Fleming [facility] Address [address] [place], [place] [address] Care Team Providers Care Telephoto Installer Name Role Phone ELOY AHUMADA PCP [...] Returned 01/24/2015 12:00 AM Toradol 60 Mg [facility]#8752-1015-59 Reviewed 03/25/2015 12:00 AM Toradol 60 Mg [facility]#5582-2470-77 Reviewed 04/06/2015 12:00 AM MRI NECK SPINE W/O DYE Returned 02/26/2011 12:00 AM THER/PROPH/DIAG INJ SC/IM Reviewed 02/26/2011 12:00 AM Decadron Inj.1mg-([facility]) [facility] #[id number] Reviewed 02/26/2011 12:00 AM Depo-Medrol 80 Mg Im/[facility] 0009-696814 Reviewed 03/11/2012 12:00 AM THER/PROPH/DIAG INJ SC/IM Reviewed 03/11/2012 12:00 AM Decadron, Per 1 Mg [facility]# [address]-16 Reviewed 03/11/2012 12:00 AM Depo-Medrol, Per 80 Mg [facility]#6008-8426-66 Reviewed 03/11/2012 12:00 AM Rocephin 1 gram [facility]#2128-5876-06 Reviewed 04/11/2012 12:00 AM Flu Injection 3 Years And Above [facility]# [address]-25 [facility] Reviewed 10/27/2012 12:00 AM THER/PROPH/DIAG INJ SC/IM Reviewed 10/27/2012 12:00 AM Decadron, Per 1 Mg [facility]# [address]-73 Reviewed 10/27/2012 12:00 AM Depo-Medrol, Per 80 Mg [facility]#3071-9058-93 Reviewed 12/26/2012 12:00 AM COMPLETE CBC W/AUTO DIFF WBC Reviewed 12/26/2012 12:00 AM COMPREHEN METABOLIC PANEL Reviewed 12/26/2012 12:00 AM LIPID PANEL Reviewed 12/26/2012 12:00 AM ASSAY THYROID STIM HORMONE Reviewed 08/27/2013 12:00 AM THER/PROPH/DIAG INJ SC/IM Reviewed 08/27/2013 12:00 AM Toradol 60 Mg [facility]#3344-1123-14 Reviewed 12/01/2013 12:00 AM THER/PROPH/DIAG INJ SC/IM Reviewed 12/01/2013 12:00 AM Toradol 60 Mg [facility]#8843-3531-41 Reviewed 07/17/2010 12:00 AM THER/PROPH/DIAG INJ SC/IM Reviewed 07/17/2010 12:00 AM Decadron Inj.6mg-([facility]) [facility] #[id number] Reviewed 07/17/2010 12:00 AM Depo-Medrol 120 Mg Im/[facility] 0009-764835 Reviewed 04/21/2014 12:00 AM IMMUNIZATION ADMIN Reviewed 04/21/2014 12:00 AM THER/PROPH/DIAG INJ SC/IM Reviewed 04/21/2014 12:00 AM Decadron, Per 1 Mg [facility]# [address]-67 Reviewed 04/21/2014 12:00 AM Depo-Medrol, Per 80 Mg [facility]#7491-3886-58 Reviewed 05/14/2014 12:00 AM THER/PROPH/DIAG INJ SC/IM Reviewed 05/14/2014 12:00 AM Decadron, Per 1 Mg [facility]# [address]-09 Reviewed 05/14/2014 12:00 AM Depo-Medrol, Per 80 Mg [facility]#5485-9538-11 Reviewed 07/05/2014 12:00 AM THER/PROPH/DIAG INJ SC/IM Reviewed 07/05/2014 12:00 AM Decadron, Per 1 Mg [facility]# [address]-41 Reviewed 07/05/2014 12:00 AM Rocephin 1 gram [facility]#1962-2878-19 Reviewed Results Summary Data and Description Results [...] Date Medicare Part A Medicare Part A [id number] N/A [place] 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
[2018-01-13 13:28] VITALS: BP 155/90
--- OUTSIDE RECORDS SUMMARY | 2018-01-13 13:29 | XMS REPORT ---
Author ELOY Fleming [facility] Address [address] [place], [place] [address] Care Team Providers Care Pilot Plant Technician Name Role Phone ELOY AHUMADA PCP [...] 12:00 AM Toradol [address] [facility]#7829-3956-82 Reviewed 03/25/2015 12:00 AM Toradol [address] [facility]#6288-4327-73 Reviewed 04/06/2015 12:00 AM MRI NECK SPINE W/O DYE Reviewed 05/27/2015 12:00 AM Decadron, Per [address] [facility]# [address]-88 Reviewed 05/27/2015 12:00 AM Depo-Medrol, Per [address] [facility]#8441-5669-08 Reviewed 05/27/2015 12:00 AM Rocephin [address] [facility]#6595-3301-06 Reviewed 02/26/2011 12:00 AM THER/PROPH/DIAG INJ SC/IM Reviewed 02/26/2011 12:00 AM Decadron Inj.1mg-([facility]) [facility] #[id number] Reviewed 02/26/2011 12:00 AM Depo-Medrol 80 Mg Im/[facility] Gerardo [facility] 0009-657845 Reviewed 12/15/2015 12:00 AM Rocephin [address] [facility]#3295-9615-97 Reviewed 06/03/2016 12:00 AM THERAPEUTIC PROPHYLACTIC/DX INJECTION [...] Rocephin 1 gram Injection, [facility] Medicare Reviewed 09/03/2016 12:00 AM THERAPEUTIC PROPHYLACTIC/DX INJECTION SUBQ/IM Reviewed 09/03/2016 12:00 AM Rocephin 1 gram Injection, [facility] Medicare Reviewed 10/22/2016 12:00 AM THERAPEUTIC PROPHYLACTIC/DX INJECTION SUBQ/IM Reviewed 10/18/2016 12:00 AM Lasix, Up to [address] [facility]#4528-0975-69 [facility] Medicare Reviewed 11/16/2016 12:00 AM ASSAY [...] AM Decadron, Per [address] [facility]# [address]-39 Reviewed 03/11/2012 12:00 AM Depo-Medrol, Per [address] [facility]#4862-2960-37 Reviewed 03/11/2012 12:00 AM Rocephin [address] [facility]#5819-2798-38 Reviewed 04/11/2012 12:00 AM Flu Injection [address] [facility]# [address]-93 [facility] Reviewed 10/27/2012 12:00 AM THER/PROPH/DIAG INJ SC/IM Reviewed 10/27/2012 12:00 AM Decadron, Per [address] [facility]# [address]-80 Reviewed 10/27/2012 12:00 AM Depo-Medrol, Per [address] [facility]#9654-9585-21 Reviewed 12/26/2012 12:00 AM COMPLETE CBC W/AUTO DIFF WBC Reviewed 12/26/2012 12:00 AM COMPREHEN METABOLIC PANEL Reviewed 12/26/2012 12:00 AM LIPID PANEL Reviewed 12/26/2012 12:00 AM ASSAY THYROID STIM HORMONE Reviewed 08/27/2013 12:00 AM THER/PROPH/DIAG INJ SC/IM Reviewed 08/27/2013 12:00 AM Toradol 60 Mg [place]#0343-1806-99 Reviewed 12/01/2013 12:00 AM THER/PROPH/DIAG INJ SC/IM Reviewed 12/01/2013 12:00 AM Toradol [address] [facility]#8483-5449-53 Reviewed 07/17/2010 12:00 AM THER/PROPH/DIAG INJ SC/IM Reviewed 07/17/2010 12:00 AM Decadron Inj.6mg-([facility]) [facility] #[id number] Reviewed 07/17/2010 12:00 AM Depo-Medrol 120 Mg Im/[facility] Gerardo [facility] 0009-111675 Reviewed 04/21/2014 12:00 AM IMMUNIZATION ADMIN Reviewed 04/21/2014 12:00 AM THER/PROPH/DIAG INJ SC/IM Reviewed 04/21/2014 12:00 AM Decadron, Per [address] [facility]# [address]-42 Reviewed 04/21/2014 12:00 AM Depo-Medrol, Per [address] [facility]#2121-6153-12 Reviewed 05/14/2014 12:00 AM THER/PROPH/DIAG INJ SC/IM Reviewed 05/14/2014 12:00 AM Decadron, Per 1 Mg [place]# [address]-92 Reviewed 05/14/2014 12:00 AM Depo-Medrol, Per [address] [facility]#9257-9498-05 Reviewed 07/05/2014 12:00 AM THER/PROPH/DIAG INJ SC/IM Reviewed 07/05/2014 12:00 AM Decadron, Per [address] [facility]# [address]-69 Reviewed 07/05/2014 12:00 AM Rocephin [address] 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 - RHC [id number] N/A Medicare Part A Medicare - Lab/Xray [id number] N/A Medicare Part B Medicare Of [place] [id number] N/A [place] Medical Assistance [facility] Medical Assistance Prog [id number] N/A Medicare Part A Medicare Part A [id number] N/A History of Encounters Visit Date Visit Type Provider 01/21/2017 Office visit ELOY AHUMADA PA 01/09/2017 Office visit ELYO AHUMADA PA 01/03/2017 Office visit ELOY AHUMADA [...] ELOY AHUMADA PA 10/18/2016 Office visit ELOY AHUMAAD PA 10/04/2016 Office visit ELOY AHUMADA PA [...] ELOY AHUMADA PA 06/03/2016 Office visit ELOY BRITT 05/31/2016 Office visit ELOY AHUMADA PA 05/14/2016 Office visit ELYO AHUMADA PA 04/17/2016 Office visit ELOY AHUMADA PA 04/02/2016 Office visit ELOY AHUMADA PA 03/22/2016 Hospital Jhony Phelps MD 03/22/2016 [facility] Mukul Lopez MD 12/15/2015 Office [...]
--- OUTSIDE RECORDS SUMMARY | 2018-01-13 13:31 | XMS REPORT ---
Author ELOY Fleming [facility] Address [address] [place], [place] [address] Care Team Providers Care Competitive Intelligence Manager Name Role Phone ELOY AHUMADA PCP [...] Toradol 60 Mg [facility]#8792-6271-68 Reviewed 03/25/2015 12:00 AM Toradol 60 Mg [facility]#5385-4152-57 Reviewed 04/06/2015 12:00 AM MRI NECK SPINE W/O DYE Reviewed 05/27/2015 12:00 AM Decadron, Per 1 Mg [facility]# [address]-18 Reviewed 05/27/2015 12:00 AM Depo-Medrol, Per 80 Mg [facility]#1013-1118-90 Reviewed 05/27/2015 12:00 AM Rocephin 1 gram [facility]#4509-7800-46 Reviewed 02/26/2011 12:00 AM THER/PROPH/DIAG INJ SC/IM Reviewed 02/26/2011 12:00 AM Decadron Inj.1mg-([facility]) [facility] #[id number] Reviewed 02/26/2011 12:00 AM Depo-Medrol 80 Mg Im/[facility] Gerardo [facility] 0009-243721 Reviewed 12/15/2015 12:00 AM Rocephin 1 gram [facility]#4639-8459-69 Reviewed 06/03/2016 12:00 AM THERAPEUTIC PROPHYLACTIC/DX INJECTION [...] Per 1 Mg [facility]# [address]-40 Reviewed 03/11/2012 12:00 AM Depo-Medrol, Per 80 Mg [facility]#4302-6562-32 Reviewed 03/11/2012 12:00 AM Rocephin 1 gram [facility]#1209-2004-23 Reviewed 04/11/2012 12:00 AM Flu Injection 3 Years And Above [facility]# [address]-12 [facility] Reviewed 10/27/2012 12:00 AM THER/PROPH/DIAG INJ SC/IM Reviewed 10/27/2012 12:00 AM Decadron, Per 1 Mg [facility]# [address]-44 Reviewed 10/27/2012 12:00 AM Depo-Medrol, Per 80 Mg [facility]#6349-4036-34 Reviewed 12/26/2012 12:00 AM COMPLETE CBC W/AUTO DIFF WBC Reviewed 12/26/2012 12:00 AM COMPREHEN METABOLIC PANEL Reviewed 12/26/2012 12:00 AM LIPID PANEL Reviewed 12/26/2012 12:00 AM ASSAY THYROID STIM HORMONE Reviewed 08/27/2013 12:00 AM THER/PROPH/DIAG INJ SC/IM Reviewed 08/27/2013 12:00 AM Toradol 60 Mg [facility]#7542-8143-74 Reviewed 12/01/2013 12:00 AM THER/PROPH/DIAG INJ SC/IM Reviewed 12/01/2013 12:00 AM Toradol 60 Mg [facility]#4606-4401-31 Reviewed 07/17/2010 12:00 AM THER/PROPH/DIAG INJ SC/IM Reviewed 07/17/2010 12:00 AM Decadron Inj.6mg-([facility]) [facility] #[id number] Reviewed 07/17/2010 12:00 AM Depo-Medrol 120 Mg Im/[facility] Gerardo [facility] 0009-259257 Reviewed 04/21/2014 12:00 AM IMMUNIZATION ADMIN Reviewed 04/21/2014 12:00 AM THER/PROPH/DIAG INJ SC/IM Reviewed 04/21/2014 12:00 AM Decadron, Per 1 Mg [facility]# [address]-05 Reviewed 04/21/2014 12:00 AM Depo-Medrol, Per 80 Mg [facility]#4281-6949-59 Reviewed 05/14/2014 12:00 AM THER/PROPH/DIAG INJ SC/IM Reviewed 05/14/2014 12:00 AM Decadron, Per 1 Mg [facility]# [address]-73 Reviewed 05/14/2014 12:00 AM Depo-Medrol, Per 80 Mg [facility]#6310-5947-08 Reviewed 07/05/2014 12:00 AM THER/PROPH/DIAG INJ SC/IM Reviewed 07/05/2014 12:00 AM Decadron, Per 1 Mg [facility]# [address]-39 Reviewed 07/05/2014 12:00 AM Rocephin 1 gram [facility]#7893-2173-22 Reviewed Results Summary Date and Description Results [...] Of Immunizations Name Date Admin Mfg Name [facility] [place] Trade Name Lot# Route Inj Vis [...] Number Start Date Medicare RHC Medicare RHC [id number] N/A [place] [employer] Prog - RHC [place] [employer] Prog - RHC [id number] N/A Medicare Part A Medicare - Lab/Xray [id number] N/A Medicare Part B Medicare Of [place] [id number] N/A [place] [facility] [place] [facility] [employer] Prog [id number] N/A Medicare Part A Medicare Part A [id number] N/A History of Encounters Visit Date Visit Type Provider 10/18/2016 Office visit ELOY AHUMADA PA 10/04/2016 Office visit ELYO AHUMADA PA 09/17/2016 Office visit ELOY AHUMADA PA 09/07/2016 Office visit ELOY AHUMADA PA 09/03/2016 Office visit ELOY AHUMADA PA 08/20/2016 Office visit ELOY AHUMADA PA 08/15/2016 Office visit ELOY AHUMADA PA 08/09/2016 Office visit ELOY AHUMADA PA 07/27/2016 Office visit ELOY AHUMADA PA 07/18/2016 Office visit ELOY AHUMADA PA 07/16/2016 Office visit ELOY AHUAMDA PA 07/06/2016 Office visit ELOY AHUMADA PA [...]
--- OUTSIDE RECORDS SUMMARY | 2018-01-13 13:36 | XMS REPORT ---
Author ELOY Fleming [facility] Address [address] [place], [place] [address] Care Team Providers Care Porter Baggage Name Role Phone ELOY AHUMADA PCP Unavailable [...] [facility]#0930-4087-59 Reviewed 03/25/2015 12:00 AM Toradol 60 Mg [facility]#1964-8575-12 Reviewed 04/06/2015 12:00 AM MRI NECK SPINE W/O DYE Reviewed 05/27/2015 12:00 AM Decadron, Per 1 Mg [facility]# [address]-56 Reviewed 05/27/2015 12:00 AM Depo-Medrol, Per 80 Mg [facility]#1756-7994-43 Reviewed 05/27/2015 12:00 AM Rocephin 1 gram [facility]#7922-1095-36 Reviewed 02/26/2011 12:00 AM THER/PROPH/DIAG INJ SC/IM Reviewed 02/26/2011 12:00 AM Decadron Inj.1mg-([facility]) [facility] #[id number] Reviewed 02/26/2011 12:00 AM Depo-Medrol 80 Mg Im/[facility] [id number] Reviewed 12/15/2015 12:00 AM Rocephin 1 gram [facility]#5471-7999-74 Reviewed 06/03/2016 12:00 AM THERAPEUTIC PROPHYLACTIC/DX INJECTION SUBQ/IM Reviewed 06/03/2016 12:00 AM Decadron 8mg Injection, [facility] Medicare Reviewed 06/27/2016 12:00 AM COMPREHEN METABOLIC PANEL Returned 06/27/2016 12:00 AM URINALYSIS AUTO W/SCOPE Returned 07/05/2016 12:00 AM COMPREHEN METABOLIC PANEL Reviewed 07/12/2016 12:00 AM COMPREHEN METABOLIC PANEL Reviewed 07/23/2016 12:00 AM COMPREHEN METABOLIC PANEL Reviewed 09/07/2016 12:00 AM THERAPEUTIC PROPHYLACTIC/DX INJECTION SUBQ/IM Reviewed 09/07/2016 12:00 AM Rocephin 1 gram Injection, [facility] Medicare Reviewed 09/03/2016 12:00 AM THERAPEUTIC PROPHYLACTIC/DX INJECTION SUBQ/IM Reviewed 09/03/2016 12:00 AM Rocephin 1 gram Injection, [facility] Medicare Reviewed 10/22/2016 12:00 AM THERAPEUTIC PROPHYLACTIC/DX INJECTION SUBQ/IM Reviewed 10/18/2016 12:00 AM Lasix, Up to 20 Mg [facility]#8499-1783-88 R[facility] Medicare Reviewed 11/16/2016 12:00 AM ASSAY OF NATRIURETIC PEPTIDE Reviewed 12/03/2016 12:00 AM THERAPEUTIC PROPHYLACTIC/DX INJECTION SUBQ/IM Reviewed 12/03/2016 12:00 AM Decadron 8mg Injection, [facility] Medicare Reviewed 11/30/2016 12:00 AM THERAPEUTIC PROPHYLACTIC/DX INJECTION SUBQ/IM Reviewed 11/30/2016 12:00 AM Decadron 8mg Injection, [facility] Medicare Reviewed 11/30/2016 12:00 AM Rocephin 1 gram Injection, [facility] Medicare Reviewed 01/09/2017 12:00 AM THERAPEUTIC PROPHYLACTIC/DX INJECTION SUBQ/IM Reviewed 01/09/2017 12:00 AM Decadron 8mg Injection Reviewed 01/28/2017 12:00 AM DRAIN/INJ JOINT/BURSA W/O US Reviewed 03/11/2012 12:00 AM THER/PROPH/DIAG INJ SC/IM Reviewed 03/11/2012 12:00 AM Decadron, Per 1 Mg [facility]# [address]-02 Reviewed 03/11/2012 12:00 AM Depo-Medrol, Per 80 Mg [facility]#1766-3456-32 Reviewed 03/11/2012 12:00 AM Rocephin 1 gram [facility]#6664-2851-65 Reviewed 04/11/2012 12:00 AM Flu Injection 3 Years And Above [facility]# [address]-06 C Reviewed 10/27/2012 12:00 AM THER/PROPH/DIAG INJ SC/IM Reviewed 10/27/2012 12:00 AM Decadron, Per 1 Mg [facility]# [address]-23 Reviewed 10/27/2012 12:00 AM Depo-Medrol, Per 80 Mg [facility]#8557-5660-60 Reviewed 12/26/2012 12:00 AM COMPLETE CBC W/AUTO DIFF WBC Reviewed 12/26/2012 12:00 AM COMPREHEN METABOLIC PANEL Reviewed 12/26/2012 12:00 AM LIPID PANEL Reviewed 12/26/2012 12:00 AM ASSAY THYROID STIM HORMONE Reviewed 08/27/2013 12:00 AM THER/PROPH/DIAG INJ SC/IM Reviewed 08/27/2013 12:00 AM Toradol 60 Mg [facility]#8285-2976-75 Reviewed 12/01/2013 12:00 AM THER/PROPH/DIAG INJ SC/IM Reviewed 12/01/2013 12:00 AM Toradol 60 Mg [facility]#1982-9662-84 Reviewed 07/17/2010 12:00 AM THER/PROPH/DIAG INJ SC/IM Reviewed 07/17/2010 12:00 AM Decadron Inj.6mg-([facility]) [facility] #[id number] Reviewed 07/17/2010 12:00 AM Depo-Medrol 120 Mg Im/[facility] [id number] Reviewed 04/21/2014 12:00 AM IMMUNIZATION ADMIN Reviewed 04/21/2014 12:00 AM THER/PROPH/DIAG INJ SC/IM Reviewed 04/21/2014 12:00 AM Decadron, Per 1 Mg [facility]# [address]-32 Reviewed 04/21/2014 12:00 AM Depo-Medrol, Per 80 Mg [facility]#0470-4694-76 Reviewed 05/14/2014 12:00 AM THER/PROPH/DIAG INJ SC/IM Reviewed 05/14/2014 12:00 AM Decadron, Per 1 Mg [facility]# [address]-18 Reviewed 05/14/2014 12:00 AM Depo-Medrol, Per 80 Mg [facility]#8888-6529-57 Reviewed 07/05/2014 12:00 AM THER/PROPH/DIAG INJ SC/IM Reviewed 07/05/2014 12:00 AM Decadron, Per 1 Mg [facility]# [address]-81 Reviewed 07/05/2014 12:00 AM Rocephin 1 gram [facility]#2470-8303-40 Reviewed Results Summary Date and Description Results [...] of right knee Feb 01 2017 11:53AM Payers Insurance Name Company Name Plan Name Plan Number Policy Number Policy Group Number Start Date Medicare RHC Medicare RHC [id number] N/A [facility] 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 [facility] Asst Prog - [facility] [id number] N/A Medicare Part A Medicare - Lab/Xray [id number] N/A Medicare Part B Medicare Of [place] [id number] N/A [facility] Medical Assistance Prog [id number] N/A Medicare Part A Medicare Part A [id number] N/A History of Encounters Visit Date Visit Type Provider 02/01/2017 Office visit ELOY AHUMADA PA 01/28/2017 [...] visit ELOY AHUMADA PA 09/07/2016 Office visit ELYO AHUMADA PA 09/03/2016 Office visit ELOY AHUMADA [...] PA 03/22/2016 Hospital Jhony Phelps MD 03/22/2016 Leann Lopez MD 12/15/2015 Office visit ELOY AHUMADA [...] visit Eloy BRITT-C 07/22/2009 Office visit Eloy COXC 06/20/2009 Office visit Eloy BRITT-C 02/18/2009 Office visit Eloy Ahumada PA-C
--- OUTSIDE RECORDS SUMMARY | 2018-01-13 13:38 | XMS REPORT ---
Author ELOY Fleming [facility] Address [address] [place], [place] [address] Care Team Providers Care Director Data Processing Name Role Phone ELOY AHUMADA PCP Unavailable [...] Toradol [address] [facility]#8091-8684-90 Reviewed 03/25/2015 12:00 AM Toradol [address] [facility]#0582-0116-44 Reviewed 04/06/2015 12:00 AM MRI NECK SPINE W/O DYE Reviewed 05/27/2015 12:00 AM Decadron, Per [address] [facility]# [address]-13 Reviewed 05/27/2015 12:00 AM Depo-Medrol, Per [address] [facility]#1033-7048-42 Reviewed 05/27/2015 12:00 AM Rocephin [address] [facility]#5855-0863-89 Reviewed 02/26/2011 12:00 AM THER/PROPH/DIAG INJ SC/IM Reviewed 02/26/2011 12:00 AM Decadron Inj.1mg-([facility]) [facility] #[id number] Reviewed 02/26/2011 12:00 AM Depo-Medrol 80 Mg Im/[facility] [id number] Reviewed 12/15/2015 12:00 AM Rocephin [address] [facility]#4969-1043-57 Reviewed 06/03/2016 12:00 AM THERAPEUTIC PROPHYLACTIC/DX INJECTION [...] Lasix, Up to [address] [facility]#2950-4636-80 [facility] Medicare Reviewed 03/11/2012 12:00 AM THER/PROPH/DIAG INJ SC/IM Reviewed 03/11/2012 12:00 AM Decadron, Per [address] [facility]# [address]-78 Reviewed 03/11/2012 12:00 AM Depo-Medrol, Per [address] [facility]#0344-1575-48 Reviewed 03/11/2012 12:00 AM Rocephin [address] [facility]#0447-4491-23 Reviewed 04/11/2012 12:00 AM Flu Injection [address] [facility]# [address]-40 [facility] Reviewed 10/27/2012 12:00 AM THER/PROPH/DIAG INJ SC/IM Reviewed 10/27/2012 12:00 AM Decadron, Per [address] [facility]# [address]-54 Reviewed 10/27/2012 12:00 AM Depo-Medrol, Per [address] [facility]#5110-9412-00 Reviewed 12/26/2012 12:00 AM COMPLETE CBC W/AUTO DIFF WBC Reviewed 12/26/2012 12:00 AM COMPREHEN METABOLIC PANEL Reviewed 12/26/2012 12:00 AM LIPID PANEL Reviewed 12/26/2012 12:00 AM ASSAY THYROID STIM HORMONE Reviewed 08/27/2013 12:00 AM THER/PROPH/DIAG INJ SC/IM Reviewed 08/27/2013 12:00 AM Toradol [address] [facility]#5919-9331-00 Reviewed 12/01/2013 12:00 AM THER/PROPH/DIAG INJ SC/IM Reviewed 12/01/2013 12:00 AM Toradol [address] [facility]#8563-9819-90 Reviewed 07/17/2010 12:00 AM THER/PROPH/DIAG INJ SC/IM Reviewed 07/17/2010 12:00 AM Decadron Inj.6mg-([facility]) [facility] #[id number] Reviewed 07/17/2010 12:00 AM Depo-Medrol 120 Mg Im/[facility]ardo [facility] 0009-534295 Reviewed 04/21/2014 12:00 AM IMMUNIZATION ADMIN Reviewed 04/21/2014 12:00 AM THER/PROPH/DIAG INJ SC/IM Reviewed 04/21/2014 12:00 AM Decadron, Per [address] [facility]# [address]-25 Reviewed 04/21/2014 12:00 AM Depo-Medrol, Per [address] [facility]#5283-4204-44 Reviewed 05/14/2014 12:00 AM THER/PROPH/DIAG INJ SC/IM Reviewed 05/14/2014 12:00 AM Decadron, Per [address] [facility]# [address]-92 Reviewed 05/14/2014 12:00 AM Depo-Medrol, Per [address] [facility]#8062-2972-65 Reviewed 07/05/2014 12:00 AM THER/PROPH/DIAG INJ SC/IM Reviewed 07/05/2014 12:00 AM Decadron, Per [address] [facility]# [address]-50 Reviewed 07/05/2014 12:00 AM Rocephin [address] [facility]#6017-2788-76 Reviewed Results Summary Date and Description Results [...] Congestive heart failure Nov 16 2016 11:15AM Payers Insurance Name Company Name Plan Name Plan Number Policy Number Policy Group Number Start Date Medicare RHC Medicare RHC [id number] N/A [place] [facility] [id number] N/A Medicare Part A Medicare - Lab/Xray [id number] N/A Medicare Part B Medicare Of [place] [id number] N/A [place] [facility] [place] [facility]g [id number] N/A Medicare Part A Medicare Part A [id number] N/A History of Encounters Visit Date Visit [...] 04/02/2016 Office visit ELOY AHUMADA PA 03/22/2016 [facility] Jhony Phelps MD 03/22/2016 [facility] [...]
--- OUTSIDE RECORDS SUMMARY | 2018-01-13 13:41 | XMS REPORT ---
Author Author ELOY AHUMADA [facility] Address [address] [place], [place] [address] Care Team Providers Care Flight Follower Name Role Phone ELOY AHUMADA PCP Unavailable Allergies and Adverse Reactions Name Reaction Notes Depo-Medrol Pain, muscle spasms, insomnia Decadron Pain, Muscle spasms, insomnia Plan of Treatment Planned Activity Comments Planned Date Planned Time Plan/Goal MRI NECK SPINE W/O DYE 04/06/2015 12:00 AM Medications Active Name Start Date [...] Returned 01/24/2015 12:00 AM Toradol 60 Mg [facility]#0027-3387-70 Reviewed 03/25/2015 12:00 AM Toradol 60 Mg [facility]#7032-1045-38 Reviewed 02/26/2011 12:00 AM THER/PROPH/DIAG INJ SC/IM Reviewed 02/26/2011 12:00 AM Decadron Inj.1mg-([facility]) [facility] #[id number] Reviewed 02/26/2011 12:00 AM Depo-Medrol 80 Mg Im/[facility] 0009-476706 Reviewed 03/11/2012 12:00 AM THER/PROPH/DIAG INJ SC/IM Reviewed 03/11/2012 12:00 AM Decadron, Per 1 Mg [facility]# [address]-62 Reviewed 03/11/2012 12:00 AM Depo-Medrol, Per 80 Mg [facility]#6545-5062-72 Reviewed 03/11/2012 12:00 AM Rocephin 1 gram [facility]#4004-2421-11 Reviewed 04/11/2012 12:00 AM Flu Injection 3 Years And Above [facility]# [address]-73 [facility] Reviewed 10/27/2012 12:00 AM THER/PROPH/DIAG INJ SC/IM Reviewed 10/27/2012 12:00 AM Decadron, Per 1 Mg [facility]# [address]-58 Reviewed 10/27/2012 12:00 AM Depo-Medrol, Per 80 Mg [facility]#0054-5007-17 Reviewed 12/26/2012 12:00 AM COMPLETE CBC W/AUTO DIFF WBC Reviewed 12/26/2012 12:00 AM COMPREHEN METABOLIC PANEL Reviewed 12/26/2012 12:00 AM LIPID PANEL Reviewed 12/26/2012 12:00 AM ASSAY THYROID STIM HORMONE Reviewed 08/27/2013 12:00 AM THER/PROPH/DIAG INJ SC/IM Reviewed 08/27/2013 12:00 AM Toradol 60 Mg [facility]#7209-5674-30 Reviewed 12/01/2013 12:00 AM THER/PROPH/DIAG INJ SC/IM Reviewed 12/01/2013 12:00 AM Toradol 60 Mg [facility]#6358-4830-56 Reviewed 07/17/2010 12:00 AM THER/PROPH/DIAG INJ SC/IM Reviewed 07/17/2010 12:00 AM Decadron Inj.6mg-([facility]) [facility] #[id number] Reviewed 07/17/2010 12:00 AM Depo-Medrol 120 Mg Im/[facility] [id number] Reviewed 04/21/2014 12:00 AM IMMUNIZATION ADMIN Reviewed 04/21/2014 12:00 AM THER/PROPH/DIAG INJ SC/IM Reviewed 04/21/2014 12:00 AM Decadron, Per 1 Mg [facility]# [address]-15 Reviewed 04/21/2014 12:00 AM Depo-Medrol, Per 80 Mg [facility]#9829-5920-49 Reviewed 05/14/2014 12:00 AM THER/PROPH/DIAG INJ SC/IM Reviewed 05/14/2014 12:00 AM Decadron, Per 1 Mg [facility]# [address]-71 Reviewed 05/14/2014 12:00 AM Depo-Medrol, Per 80 Mg [facility]#6176-2486-78 Reviewed 07/05/2014 12:00 AM THER/PROPH/DIAG INJ SC/IM Reviewed 07/05/2014 12:00 AM Decadron, Per 1 Mg [facility]# [address]-71 Reviewed 07/05/2014 12:00 AM Rocephin 1 gram [facility]#5820-5612-27 Reviewed Results Summary Data and Description Results [...] Jan 17 2010 9:32AM Essential hypertension 03/06/2014 Chronic back pain 01/29/2015 Cervicalgia 01/29/2015 [...] Date Medicare Part A Medicare Part A [id number] N/A [facility] [id number] N/A History of Encounters Visit Date Visit Type Provider 03/25/2015 Office visit ELOY BRITT 01/28/2015 Office visit ELOY BRITT 01/24/2015 Office visit ELOY BRITT 01/03/2015 Office visit ELOY BRTIT 11/17/2014 Office visit ELOY BRITT 08/13/2014 Office [...] visit ELOY BRITT 12/02/2012 Office visit ELOY BRITT 10/27/2012 Office visit ELOY AHUMADA PA 09/11/2012 Voided ELOY AHUMADA PA 09/04/2012 Office visit ELOY BRITT 08/18/2012 Office visit ELOY BRITT 06/06/2012 Voided ELOY AHUMADA PA 05/20/2012 Office [...]
--- OUTSIDE RECORDS SUMMARY | 2018-01-13 13:46 | XMS REPORT ---
Author ELOY Fleming [facility] Address [address] [place], [place] [address] Care Team Providers Care Patent Chemist Name Role Phone ELOY AHUMADA PCP Unavailable Allergies and Adverse Reactions Name Reaction Notes Depo-Medrol Pain, muscle spasms, insomnia Decadron Pain, Muscle spasms, insomnia Plan of Treatment Planned Activity Comments Planned Date Planned Time Plan/Goal BNP 05/15/2016 12:00 AM CMP 06/27/2016 12:00 AM Urinalysis with C/S If Indicated. 06/27/2016 12:00 AM cervical pain 06/15/2015 11:00 AM [...] route once daily for 30 days furosemide 20 mg oral tablet 05/31/2016 [...] HC BMI BSA BMI Percentile O2 Sat(%) 06/26/2016 4:39:00 PM 100 mmHg 62 mmHg [...] 01/24/2015 12:00 AM Toradol 60 Mg [facility]#7108-3559-79 Reviewed 03/25/2015 12:00 AM Toradol 60 Mg [facility]#5699-1035-54 Reviewed 04/06/2015 12:00 AM MRI NECK SPINE W/O DYE Reviewed 05/27/2015 12:00 AM Decadron, Per 1 Mg [facility]# [address]-73 Reviewed 05/27/2015 12:00 AM Depo-Medrol, Per 80 Mg [facility]#8165-5659-91 Reviewed 05/27/2015 12:00 AM Rocephin 1 gram [facility]#0199-6281-98 Reviewed 02/26/2011 12:00 AM THER/PROPH/DIAG INJ SC/IM Reviewed 02/26/2011 12:00 AM Decadron Inj.1mg-([facility]) [facility] #[id number] Reviewed 02/26/2011 12:00 AM Depo-Medrol 80 Mg Im/[facility] 0009-544694 Reviewed 12/15/2015 12:00 AM Rocephin 1 gram [facility]#4332-1243-66 Reviewed 06/03/2016 12:00 AM THERAPEUTIC PROPHYLACTIC/DX INJECTION SUBQ/IM Reviewed 06/03/2016 12:00 AM Decadron 8mg Injection, [facility] Medicare Reviewed 03/11/2012 12:00 AM THER/PROPH/DIAG INJ SC/IM Reviewed 03/11/2012 12:00 AM Decadron, Per 1 Mg [facility]# [address]-59 Reviewed 03/11/2012 12:00 AM Depo-Medrol, Per 80 Mg [facility]#3171-2068-77 Reviewed 03/11/2012 12:00 AM Rocephin 1 gram [facility]#8962-2406-54 Reviewed 04/11/2012 12:00 AM Flu Injection 3 Years And Above [facility]# [address]-68 [facility] Reviewed 10/27/2012 12:00 AM THER/PROPH/DIAG INJ SC/IM Reviewed 10/27/2012 12:00 AM Decadron, Per 1 Mg [facility]# [address]-91 Reviewed 10/27/2012 12:00 AM Depo-Medrol, Per 80 Mg [facility]#5356-8911-91 Reviewed 12/26/2012 12:00 AM COMPLETE CBC W/AUTO DIFF WBC Reviewed 12/26/2012 12:00 AM COMPREHEN METABOLIC PANEL Reviewed 12/26/2012 12:00 AM LIPID PANEL Reviewed 12/26/2012 12:00 AM ASSAY THYROID STIM HORMONE Reviewed 08/27/2013 12:00 AM THER/PROPH/DIAG INJ SC/IM Reviewed 08/27/2013 12:00 AM Toradol 60 Mg [facility]#0655-4168-57 Reviewed 12/01/2013 12:00 AM THER/PROPH/DIAG INJ SC/IM Reviewed 12/01/2013 12:00 AM Toradol 60 Mg [facility]#1091-5389-20 Reviewed 07/17/2010 12:00 AM THER/PROPH/DIAG INJ SC/IM Reviewed 07/17/2010 12:00 AM Decadron Inj.6mg-([facility]) [facility] #[id number] Reviewed 07/17/2010 12:00 AM Depo-Medrol 120 Mg Im/[facility] Gerardo [facility] 0009-535502 Reviewed 04/21/2014 12:00 AM IMMUNIZATION ADMIN Reviewed 04/21/2014 12:00 AM THER/PROPH/DIAG INJ SC/IM Reviewed 04/21/2014 12:00 AM Decadron, Per 1 Mg [facility]# [address]-62 Reviewed 04/21/2014 12:00 AM Depo-Medrol, Per 80 Mg [facility]#2349-1998-02 Reviewed 05/14/2014 12:00 AM THER/PROPH/DIAG INJ SC/IM Reviewed 05/14/2014 12:00 AM Decadron, Per 1 Mg [facility]# [address]-75 Reviewed 05/14/2014 12:00 AM Depo-Medrol, Per 80 Mg [facility]#8534-2036-34 Reviewed 07/05/2014 12:00 AM THER/PROPH/DIAG INJ SC/IM Reviewed 07/05/2014 12:00 AM Decadron, Per 1 Mg [facility]# [address]-27 Reviewed 07/05/2014 12:00 AM Rocephin 1 gram [facility]#4150-8526-79 Reviewed Results Summary Data and Description Results [...] Abnormal kidney function Jun 27 2016 11:47AM Payers Insurance Name Company Name Plan Name Plan Number Policy Number Policy Group Number Start Date Medicare RHC Medicare RHC [id number] N/A [place] [facility] [id number] N/A Medicare Part A Medicare - Lab/Xray [id number] N/A Medicare Part B Medicare Of [place] [id number] N/A [place] Medical Assistance [facility] Medical Assistance Prog [id number] N/A Medicare Part A Medicare Part A [id number] N/A History of Encounters Visit Date Visit Type Provider 06/26/2016 Office visit ELOY BRITT 06/03/2016 Office visit ELOY BRITT 05/31/2016 Office visit ELOY BRITT 05/14/2016 Office visit ELOY BRITT 04/17/2016 Office visit ELOY BRITT 04/02/2016 Office visit ELOY BRITT 03/22/2016 Hospital Jhony Phelps MD 03/22/2016 [facility] Mukul Lopez MD 12/15/2015 Office [...]
--- OUTSIDE RECORDS SUMMARY | 2018-01-13 13:48 | XMS REPORT ---
Author ELOY Fleming [facility] Address [address] [place], [place] [id number] Care Team Providers Care Slasher Operator Name Role Phone ELOY AHUMADA PCP [...] Toradol 60 Mg [facility]#2538-0655-59 Reviewed 03/25/2015 12:00 AM Toradol 60 Mg [facility]#4604-1345-71 Reviewed 04/06/2015 12:00 AM MRI NECK SPINE W/O DYE Reviewed 05/27/2015 12:00 AM Decadron, Per 1 Mg [facility]# [address]-03 Reviewed 05/27/2015 12:00 AM Depo-Medrol, Per 80 Mg [facility]#6365-9687-59 Reviewed 05/27/2015 12:00 AM Rocephin 1 gram [facility]#9812-3317-94 Reviewed 02/26/2011 12:00 AM THER/PROPH/DIAG INJ SC/IM Reviewed 02/26/2011 12:00 AM Decadron Inj.1mg-([facility]) [facility] #[id number] Reviewed 02/26/2011 12:00 AM Depo-Medrol 80 Mg Im/[facility] [id number] Reviewed 12/15/2015 12:00 AM Rocephin 1 gram [facility]#0933-2776-25 Reviewed 06/03/2016 12:00 AM THERAPEUTIC PROPHYLACTIC/DX INJECTION SUBQ/IM Reviewed 06/03/2016 12:00 AM Decadron 8mg Injection, [facility] Medicare Reviewed 06/27/2016 12:00 AM COMPREHEN METABOLIC PANEL Returned 06/27/2016 12:00 AM URINALYSIS AUTO W/SCOPE Returned 07/05/2016 12:00 AM COMPREHEN METABOLIC PANEL Reviewed 07/12/2016 12:00 AM COMPREHEN METABOLIC PANEL Reviewed 07/23/2016 12:00 AM COMPREHEN METABOLIC PANEL Reviewed 09/07/2016 12:00 AM THERAPEUTIC PROPHYLACTIC/DX INJECTION SUBQ/IM Reviewed 09/07/2016 12:00 AM Rocephin 1 gram Injection, [facility] Medicare Reviewed 09/03/2016 12:00 AM THERAPEUTIC PROPHYLACTIC/DX INJECTION SUBQ/IM Reviewed 09/03/2016 12:00 AM Rocephin 1 gram Injection, [facility] Medicare Reviewed 10/22/2016 12:00 AM THERAPEUTIC PROPHYLACTIC/DX INJECTION SUBQ/IM Reviewed 10/18/2016 12:00 AM Lasix, Up to 20 Mg [facility]#9321-7371-84 [facility] Medicare Reviewed 11/16/2016 12:00 AM [...] 1 Mg [facility]# [address]-52 Reviewed 03/11/2012 12:00 AM Depo-Medrol, Per 80 Mg [facility]#3529-9019-72 Reviewed 03/11/2012 12:00 AM Rocephin 1 gram [facility]#4499-4062-67 Reviewed 04/11/2012 12:00 AM Flu Injection 3 Years And Above [facility]# [address]-05 [facility] Reviewed 10/27/2012 12:00 AM THER/PROPH/DIAG INJ SC/IM Reviewed 10/27/2012 12:00 AM Decadron, Per 1 Mg [facility]# [address]-92 Reviewed 10/27/2012 12:00 AM Depo-Medrol, Per 80 Mg [facility]#9053-6699-35 Reviewed 12/26/2012 12:00 AM COMPLETE CBC W/AUTO DIFF WBC Reviewed 12/26/2012 12:00 AM COMPREHEN METABOLIC PANEL Reviewed 12/26/2012 12:00 AM LIPID PANEL Reviewed 12/26/2012 12:00 AM ASSAY THYROID STIM HORMONE Reviewed 08/27/2013 12:00 AM THER/PROPH/DIAG INJ SC/IM Reviewed 08/27/2013 12:00 AM Toradol 60 Mg [facility]#2472-7919-42 Reviewed 12/01/2013 12:00 AM THER/PROPH/DIAG INJ SC/IM Reviewed 12/01/2013 12:00 AM Toradol 60 Mg [facility]#6337-8320-06 Reviewed 07/17/2010 12:00 AM THER/PROPH/DIAG INJ SC/IM Reviewed 07/17/2010 12:00 AM Decadron Inj.6mg-([facility]) [facility] #[id number] Reviewed 07/17/2010 12:00 AM Depo-Medrol 120 Mg Im/[facility] 0009-192024 Reviewed 04/21/2014 12:00 AM IMMUNIZATION ADMIN Reviewed 04/21/2014 12:00 AM THER/PROPH/DIAG INJ SC/IM Reviewed 04/21/2014 12:00 AM Decadron, Per 1 Mg [facility]# [address]-26 Reviewed 04/21/2014 12:00 AM Depo-Medrol, Per 80 Mg [facility]#9249-2761-73 Reviewed 05/14/2014 12:00 AM THER/PROPH/DIAG INJ SC/IM Reviewed 05/14/2014 12:00 AM Decadron, Per 1 Mg [facility]# [address]-55 Reviewed 05/14/2014 12:00 AM Depo-Medrol, Per 80 Mg [facility]#3828-2599-51 Reviewed 07/05/2014 12:00 AM THER/PROPH/DIAG INJ SC/IM Reviewed 07/05/2014 12:00 AM Decadron, Per 1 Mg [facility]# [address]-53 Reviewed 07/05/2014 12:00 AM Rocephin 1 gram [facility]#1674-4867-92 Reviewed Results Summary Date and Description Results [...] cuff tendinitis, right Jan 28 2017 1:01PM Payers Insurance Name Company Name Plan Name Plan Number Policy Number Policy Group Number Start Date Medicare RHC Medicare RHC [id number] N/A [place] 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
--- OUTSIDE RECORDS SUMMARY | 2018-01-13 13:51 | XMS REPORT ---
Author ELOY Fleming [facility] Address [address] [place], [place] [address] Care Team Providers Care Occ Ther Name Role Phone ELOY AHUMADA PCP Unavailable [...] Toradol 60 Mg [facility]#1683-8946-44 Reviewed 03/25/2015 12:00 AM Toradol 60 Mg [facility]#3870-1086-00 Reviewed 04/06/2015 12:00 AM MRI NECK SPINE W/O DYE Reviewed 05/27/2015 12:00 AM Decadron, Per 1 Mg [facility]# [address]-59 Reviewed 05/27/2015 12:00 AM Depo-Medrol, Per 80 Mg [facility]#0005[address]779-40 Reviewed 05/27/2015 12:00 AM Rocephin 1 gram [facility]#9947-2281-31 Reviewed 02/26/2011 12:00 AM THER/PROPH/DIAG INJ SC/IM Reviewed 02/26/2011 12:00 AM Decadron Inj.1mg-([facility]) [facility] #[id number] Reviewed 02/26/2011 12:00 AM Depo-Medrol 80 Mg Im/[facility] 0009-035371 Reviewed 12/15/2015 12:00 AM Rocephin 1 gram [facility]#6413-0204-48 Reviewed 06/03/2016 12:00 AM THERAPEUTIC PROPHYLACTIC/DX INJECTION SUBQ/IM Reviewed 06/03/2016 12:00 AM Decadron 8mg Injection, [facility] Medicare Reviewed 06/27/2016 12:00 AM COMPREHEN [...] to 20 Mg [facility]#1410-4531-78 [facility] Medicare Reviewed 11/16/2016 12:00 AM ASSAY OF NATRIURETIC PEPTIDE Reviewed 12/03/2016 12:00 AM THERAPEUTIC PROPHYLACTIC/DX INJECTION SUBQ/IM Reviewed 12/03/2016 12:00 AM Decadron 8mg Injection, [facility] Medicare Reviewed 11/30/2016 12:00 AM THERAPEUTIC PROPHYLACTIC/DX INJECTION SUBQ/IM Reviewed 11/30/2016 12:00 AM Decadron 8mg Injection, [facility] Medicare Reviewed 11/30/2016 12:00 AM Rocephin 1 gram Injection, [facility] Medicare Reviewed 01/09/2017 12:00 AM THERAPEUTIC PROPHYLACTIC/DX INJECTION SUBQ/IM Reviewed 01/09/2017 12:00 AM Decadron 8mg Injection Reviewed 03/11/2012 12:00 AM THER/PROPH/DIAG INJ SC/IM Reviewed 03/11/2012 12:00 AM Decadron, Per 1 Mg [facility]# [address]-14 Reviewed 03/11/2012 12:00 AM Depo-Medrol, Per 80 Mg [facility]#0597-8017-90 Reviewed 03/11/2012 12:00 AM Rocephin 1 gram [facility]#1289-6618-70 Reviewed 04/11/2012 12:00 AM Flu Injection 3 Years And Above [facility]# [address]-72 [facility] Reviewed 10/27/2012 12:00 AM THER/PROPH/DIAG INJ SC/IM Reviewed 10/27/2012 12:00 AM Decadron, Per 1 Mg [facility]# [address]-33 Reviewed 10/27/2012 12:00 AM Depo-Medrol, Per 80 Mg [facility]#5040-4648-41 Reviewed 12/26/2012 12:00 AM COMPLETE CBC W/AUTO DIFF WBC Reviewed 12/26/2012 12:00 AM COMPREHEN METABOLIC PANEL Reviewed 12/26/2012 12:00 AM LIPID PANEL Reviewed 12/26/2012 12:00 AM ASSAY THYROID STIM HORMONE Reviewed 08/27/2013 12:00 AM THER/PROPH/DIAG INJ SC/IM Reviewed 08/27/2013 12:00 AM Toradol 60 Mg [facility]#5899-0767-47 Reviewed 12/01/2013 12:00 AM THER/PROPH/DIAG INJ SC/IM Reviewed 12/01/2013 12:00 AM Toradol 60 Mg [facility]#8319-7167-32 Reviewed 07/17/2010 12:00 AM THER/PROPH/DIAG INJ SC/IM Reviewed 07/17/2010 12:00 AM Decadron Inj.6mg-([facility]) [facility] #[id number] Reviewed 07/17/2010 12:00 AM Depo-Medrol 120 Mg Im/[facility] 0009-152531 Reviewed 04/21/2014 12:00 AM IMMUNIZATION ADMIN Reviewed 04/21/2014 12:00 AM THER/PROPH/DIAG INJ SC/IM Reviewed 04/21/2014 12:00 AM Decadron, Per 1 Mg [facility]# [address]-98 Reviewed 04/21/2014 12:00 AM Depo-Medrol, Per 80 Mg [facility]#9993-1725-42 Reviewed 05/14/2014 12:00 AM THER/PROPH/DIAG INJ SC/IM Reviewed 05/14/2014 12:00 AM Decadron, Per 1 Mg [facility]# [address]-97 Reviewed 05/14/2014 12:00 AM Depo-Medrol, Per 80 Mg [facility]#3452-1273-43 Reviewed 07/05/2014 12:00 AM THER/PROPH/DIAG INJ SC/IM Reviewed 07/05/2014 12:00 AM Decadron, Per 1 Mg [facility]# [address]-56 Reviewed 07/05/2014 12:00 AM Rocephin 1 gram [facility]#5139-1723-64 Reviewed Results Summary Date and Description Results [...] 9:37AM Peripheral edema Jan 29 2017 9:37AM Payers Insurance Name Company Name Plan Name Plan Number Policy Number Policy Group Number Start Date Medicare RHC Medicare RHC [id number] N/A [place] 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
--- OUTSIDE RECORDS SUMMARY | 2018-01-13 13:53 | XMS REPORT ---
Author ELOY Fleming [facility] Address [address] [place], [place] [address] Care Team Providers Care Video Game Script Writer Name Role Phone ELOY AHUMADA PCP Unavailable [...] 01/24/2015 12:00 AM Toradol 60 Mg [facility]#8139-1942-12 Reviewed 03/25/2015 12:00 AM Toradol 60 Mg [facility]#3385-3822-36 Reviewed 04/06/2015 12:00 AM MRI NECK SPINE W/O DYE Reviewed 05/27/2015 12:00 AM Decadron, Per 1 Mg [facility]# [address]-30 Reviewed 05/27/2015 12:00 AM Depo-Medrol, Per 80 Mg [facility]#2731-9572-67 Reviewed 05/27/2015 12:00 AM Rocephin 1 gram [facility]#9236-5432-45 Reviewed 02/26/2011 12:00 AM THER/PROPH/DIAG INJ SC/IM Reviewed 02/26/2011 12:00 AM Decadron Inj.1mg-([facility]) [facility] #[id number] Reviewed 02/26/2011 12:00 AM Depo-Medrol 80 Mg Im/[facility] 0009-904276 Reviewed 12/15/2015 12:00 AM Rocephin 1 gram [facility]#7782-7782-84 Reviewed 06/03/2016 12:00 AM THERAPEUTIC PROPHYLACTIC/DX INJECTION SUBQ/IM Reviewed 06/03/2016 12:00 AM Decadron 8mg Injection, [facility] Medicare Reviewed 06/27/2016 12:00 AM COMPREHEN METABOLIC PANEL Returned 06/27/2016 12:00 AM URINALYSIS AUTO W/SCOPE Returned 03/11/2012 12:00 AM THER/PROPH/DIAG INJ SC/IM Reviewed 03/11/2012 12:00 AM Decadron, Per 1 Mg [facility]# [address]-68 Reviewed 03/11/2012 12:00 AM Depo-Medrol, Per 80 Mg [facility]#9545-0984-78 Reviewed 03/11/2012 12:00 AM Rocephin 1 gram [facility]#2675-9372-24 Reviewed 04/11/2012 12:00 AM Flu Injection 3 Years And Above [facility]# [address]-92 [facility] Reviewed 10/27/2012 12:00 AM THER/PROPH/DIAG INJ SC/IM Reviewed 10/27/2012 12:00 AM Decadron, Per 1 Mg [facility]# [address]-52 Reviewed 10/27/2012 12:00 AM Depo-Medrol, Per 80 Mg [facility]#6331-6444-54 Reviewed 12/26/2012 12:00 AM COMPLETE CBC W/AUTO DIFF WBC Reviewed 12/26/2012 12:00 AM COMPREHEN METABOLIC PANEL Reviewed 12/26/2012 12:00 AM LIPID PANEL Reviewed 12/26/2012 12:00 AM ASSAY THYROID STIM HORMONE Reviewed 08/27/2013 12:00 AM THER/PROPH/DIAG INJ SC/IM Reviewed 08/27/2013 12:00 AM Toradol 60 Mg [facility]#0368-5330-10 Reviewed 12/01/2013 12:00 AM THER/PROPH/DIAG INJ SC/IM Reviewed 12/01/2013 12:00 AM Toradol 60 Mg [facility]#3444-2776-09 Reviewed 07/17/2010 12:00 AM THER/PROPH/DIAG INJ SC/IM Reviewed 07/17/2010 12:00 AM Decadron Inj.6mg-([facility]) [facility] #[id number] Reviewed 07/17/2010 12:00 AM Depo-Medrol 120 Mg Im/[facility] 0009-536990 Reviewed 04/21/2014 12:00 AM IMMUNIZATION ADMIN Reviewed 04/21/2014 12:00 AM THER/PROPH/DIAG INJ SC/IM Reviewed 04/21/2014 12:00 AM Decadron, Per 1 Mg [facility]# [address]-12 Reviewed 04/21/2014 12:00 AM Depo-Medrol, Per 80 Mg [facility]#2958-0256-53 Reviewed 05/14/2014 12:00 AM THER/PROPH/DIAG INJ SC/IM Reviewed 05/14/2014 12:00 AM Decadron, Per 1 Mg [facility]# [address]-35 Reviewed 05/14/2014 12:00 AM Depo-Medrol, Per 80 Mg [facility]#1560-8813-56 Reviewed 07/05/2014 12:00 AM THER/PROPH/DIAG INJ SC/IM Reviewed 07/05/2014 12:00 AM Decadron, Per 1 Mg [facility]# [address]-00 Reviewed 07/05/2014 12:00 AM Rocephin 1 gram [facility]#9490-3405-33 Reviewed Results Summary Data and Description Results [...] Number Start Date Medicare RHC Medicare RHC [id number] 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 [id number] N/A Medicare Part A Medicare - Lab/Xray [id number] N/A Medicare Part B Medicare Of [place] [id number] N/A [place] Medical Assistance Program [place] Medical Assistance Prog [id number] N/A Medicare Part A Medicare Part A [id number] N/A History of Encounters Visit Date Visit Type Provider 06/29/2016 Office visit ELOY BRITT 06/26/2016 Office visit ELOY BRITT 06/03/2016 Office visit ELOY BRITT 05/31/2016 Office visit ELOY BRITT 05/14/2016 Office visit ELOY BRITT 04/17/2016 Office visit ELOY BRITT 04/02/2016 Office visit ELOY BRITT 03/22/2016 [facility] Jhony Phelps MD 03/22/2016 [facility] [...] Eloy Ahumada PA-C 07/22/2009 Office visit Eloy hAumada PA-C 06/20/2009 Office visit Eloy Ahumada PA-C 02/18/2009 Office visit Eloy Ahumada PA-C
--- OUTSIDE RECORDS SUMMARY | 2018-01-13 13:56 | XMS REPORT ---
Author Author ELOY AHUMADA [facility] Address [address] [facility] [address] [place], [place] [address] Care Team Providers Care Crop Pest Control Specialist Name Role Phone ELOY AHUMADA PCP ELOY [...] HC BMI BSA BMI Percentile O2 Sat(%) 09/03/2017 2:14:00 PM 110 mmHg 80 mmHg [...] Reviewed 01/24/2015 12:00 AM Toradol 60 Mg [facility]#7126-1983-52 Reviewed 03/25/2015 12:00 AM Toradol 60 Mg [facility]#5800-9511-70 Reviewed 04/06/2015 12:00 AM MRI NECK SPINE W/O DYE Reviewed 05/27/2015 12:00 AM Decadron, Per 1 Mg [facility]# [address]-55 Reviewed 05/27/2015 12:00 AM Depo-Medrol, Per 80 Mg [facility]#6947-5598-70 Reviewed 05/27/2015 12:00 AM Rocephin 1 gram [facility]#3560-1871-81 Reviewed 02/26/2011 12:00 AM THER/PROPH/DIAG INJ SC/IM Reviewed 02/26/2011 12:00 AM Decadron Inj.1mg-([facility]) [facility] #[id number] Reviewed 02/26/2011 12:00 AM Depo-Medrol 80 Mg Im/[facility] 0009-840870 Reviewed 12/15/2015 12:00 AM Rocephin 1 gram [facility]#7482-0626-29 Reviewed 06/03/2016 12:00 AM THERAPEUTIC PROPHYLACTIC/DX INJECTION [...] 09/07/2016 12:00 AM Rocephin 1 gram Injection, [facility] Medicare Reviewed 09/03/2016 12:00 AM THERAPEUTIC PROPHYLACTIC/DX INJECTION SUBQ/IM Reviewed 09/03/2016 12:00 AM Rocephin 1 gram Injection, [facility] Medicare Reviewed 10/22/2016 12:00 AM THERAPEUTIC PROPHYLACTIC/DX INJECTION SUBQ/IM Reviewed 10/18/2016 12:00 AM Lasix, Up to 20 Mg [facility]#4587-3145-00 [facility] Medicare Reviewed 11/16/2016 12:00 AM ASSAY OF NATRIURETIC PEPTIDE Reviewed 12/03/2016 12:00 AM THERAPEUTIC PROPHYLACTIC/DX INJECTION SUBQ/IM Reviewed 12/03/2016 12:00 AM Decadron 8mg Injection, [facility] Medicare Reviewed 11/30/2016 12:00 AM THERAPEUTIC PROPHYLACTIC/DX INJECTION SUBQ/IM Reviewed 11/30/2016 12:00 AM Decadron 8mg Injection, [facility] Medicare Reviewed 11/30/2016 12:00 AM Rocephin 1 gram Injection, [facility] Medicare Reviewed 11/30/2016 12:00 AM AIRWAY INHALATION TREATMENT Reviewed 01/09/2017 12:00 AM THERAPEUTIC PROPHYLACTIC/DX INJECTION SUBQ/IM Reviewed 01/09/2017 12:00 AM Decadron 8mg Injection Reviewed 01/28/2017 12:00 AM DRAIN/INJ JOINT/BURSA W/O US Reviewed 02/01/2017 12:00 AM DRAIN/INJ JOINT/BURSA W/O US Reviewed 03/11/2012 12:00 AM THER/PROPH/DIAG INJ SC/IM Reviewed 03/11/2012 12:00 AM Decadron, Per 1 Mg [facility]# [address]-72 Reviewed 03/11/2012 12:00 AM Depo-Medrol, Per 80 Mg [facility]#5066-2501-48 Reviewed 03/11/2012 12:00 AM Rocephin 1 gram [facility]#5083-1927-22 Reviewed 04/11/2012 12:00 AM Flu Injection 3 Years And Above [facility]# [address]-98 [facility] Reviewed 05/08/2017 12:00 AM THERAPEUTIC PROPHYLACTIC/DX INJECTION SUBQ/IM Reviewed 05/08/2017 12:00 AM Toradol 60 Mg Injection, [facility] Medicare Reviewed 07/31/2017 12:00 AM ASSAY OF NATRIURETIC PEPTIDE Returned 10/27/2012 12:00 AM THER/PROPH/DIAG INJ SC/IM Reviewed 10/27/2012 12:00 AM Decadron, Per 1 Mg [facility]# [address]-40 Reviewed 10/27/2012 12:00 AM Depo-Medrol, Per 80 Mg [facility]#2003-9326-54 Reviewed 12/26/2012 12:00 AM COMPLETE CBC W/AUTO DIFF WBC Reviewed 12/26/2012 12:00 AM COMPREHEN METABOLIC PANEL Reviewed 12/26/2012 12:00 AM LIPID PANEL Reviewed 12/26/2012 12:00 AM ASSAY THYROID STIM HORMONE Reviewed 08/27/2013 12:00 AM THER/PROPH/DIAG INJ SC/IM Reviewed 08/27/2013 12:00 AM Toradol 60 Mg [facility]#4543-6631-26 Reviewed 12/01/2013 12:00 AM THER/PROPH/DIAG INJ SC/IM Reviewed 12/01/2013 12:00 AM Toradol 60 Mg [facility]#4980-7753-16 Reviewed 07/17/2010 12:00 AM THER/PROPH/DIAG INJ SC/IM Reviewed 07/17/2010 12:00 AM Decadron Inj.6mg-([facility]) [facility] #[id number] Reviewed 07/17/2010 12:00 AM Depo-Medrol 120 Mg Im/[facility] Gerardo [facility] 0009-541388 Reviewed 04/21/2014 12:00 AM IMMUNIZATION ADMIN Reviewed 04/21/2014 12:00 AM THER/PROPH/DIAG INJ SC/IM Reviewed 04/21/2014 12:00 AM Decadron, Per 1 Mg [facility]# [address]-21 Reviewed 04/21/2014 12:00 AM Depo-Medrol, Per 80 Mg [facility]#8958-3391-43 Reviewed 05/14/2014 12:00 AM THER/PROPH/DIAG INJ SC/IM Reviewed 05/14/2014 12:00 AM Decadron, Per 1 Mg [facility]# [address]-32 Reviewed 05/14/2014 12:00 AM Depo-Medrol, Per 80 Mg [facility]#2875-4006-75 Reviewed 07/05/2014 12:00 AM THER/PROPH/DIAG INJ SC/IM Reviewed 07/05/2014 12:00 AM Decadron, Per 1 Mg [facility]# [address]-49 Reviewed 07/05/2014 12:00 AM Rocephin 1 gram [facility]#3317-9626-57 Reviewed Results Summary Date and Description Results [...] Of Immunizations Name Date Admin Mfg Name [facility] Code Trade Name Lot# Route [...] 2017 1:48PM Stage 3 chronic kidney disease Jul 31 2017 1:48PM Anxiety about health [...] chronic kidney disease Sep 03 2017 2:14PM Payers Insurance Name Company Name Plan Name Plan Number Policy Number Policy Group Number Start Date Medicare RHC Medicare RHC [id number] N/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[place] 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 - 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 [id number] N/A Medicare Part A Medicare - Lab/Xray [id number] N/A Medicare Part B Medicare Of [place] [id number] N/A [place] Medical Assistance [facility] Medical Assistance Prog [id number] N/A Medicare Part A Medicare Part A [id number] N/A History of Encounters Visit Date Visit Type Provider 09/03/2017 Office visit ELOY BRITT 08/20/2017 Office [...] visit ELOY BRITT 12/03/2016 Office visit ELOY AHUMADA PA 11/30/2016 [...] PA 03/22/2016 Hospital Jhony Phelps MD 03/22/2016 [facility] Mukul Lopez MD 12/15/2015 Office visit ELOY AHUMADA PA 10/24/2015 Office visit ELOY AHUMADA PA 10/11/2015 Office visit ELOY AHUMADA PA 07/05/2015 Office visit ELOY AHUMADA PA 06/09/2015 Office visit ELOY AHUMADA PA 05/12/2015 Office visit ELOY HAUMADA PA 03/25/2015 Office visit ELOY AHUMADA PA [...] visit ELOY AHUMADA PA 03/06/2013 Office visit EOLY AHUMADA PA 12/02/2012 Office visit ELOY AHUMADA [...]
--- OUTSIDE RECORDS SUMMARY | 2018-01-13 13:59 | XMS REPORT ---
Author Author ELOY AHUAMDA [facility] Address [address] [place], [place] [id number] Care Team Providers Care Bark Tanner Name Role Phone ELOY AHUMADA PCP ELOY [...] day diazepam 5 mg oral tablet 02/18/2014 03/26/201605/07 to 1 PO BID PRN anxiety fluticasone [...] day phentermine 37.5 mg oral tablet 10/11/2015 04/18/2016/2 po in the am promethazine-codeine 6.25-10 mg/5 [...] Reviewed 01/24/2015 12:00 AM Toradol 60 Mg ND#5694-2495-54 Reviewed 03/25/2015 12:00 AM Toradol 60 Mg [facility]#2526-6329-79 Reviewed 04/06/2015 12:00 AM MRI NECK SPINE W/O DYE Reviewed 05/27/2015 12:00 AM Decadron, Per 1 Mg ND# [address]-14 Reviewed 05/27/2015 12:00 AM Depo-Medrol, Per 80 Mg [facility]#4363-5385-03 Reviewed 05/27/2015 12:00 AM Rocephin 1 gram [facility]#4468-6164-37 Reviewed 02/26/2011 12:00 AM THER/PROPH/DIAG INJ SC/IM Reviewed 02/26/2011 12:00 AM Decadron Inj.1mg-([facility]) [facility] #[id number] Reviewed 02/26/2011 12:00 AM Depo-Medrol 80 Mg Im/[facility] [id number] Reviewed 12/15/2015 12:00 AM Rocephin 1 gram [facility]#3114-7656-99 Reviewed 06/03/2016 12:00 AM THERAPEUTIC PROPHYLACTIC/DX INJECTION [...] 09/07/2016 12:00 AM Rocephin 1 gram Injection, [facility] Medicare Reviewed 09/03/2016 12:00 AM THERAPEUTIC PROPHYLACTIC/DX INJECTION SUBQ/IM Reviewed 09/03/2016 12:00 AM Rocephin 1 gram Injection, [facility] Medicare Reviewed 10/22/2016 12:00 AM THERAPEUTIC PROPHYLACTIC/DX INJECTION SUBQ/IM Reviewed 10/18/2016 12:00 AM Lasix, Up to 20 Mg [facility]#0808-1420-71 [facility] Medicare Reviewed 11/16/2016 12:00 AM ASSAY OF NATRIURETIC PEPTIDE Reviewed 12/03/2016 12:00 AM THERAPEUTIC PROPHYLACTIC/DX INJECTION SUBQ/IM Reviewed 12/03/2016 12:00 AM Decadron 8mg Injection, [facility] Medicare Reviewed 11/30/2016 12:00 AM THERAPEUTIC PROPHYLACTIC/DX INJECTION SUBQ/IM Reviewed 11/30/2016 12:00 AM Decadron 8mg Injection, [facility] Medicare Reviewed 11/30/2016 12:00 AM Rocephin [...] 03/11/2012 12:00 AM Decadron, Per 1 Mg [facility]# [address]-00 Reviewed 03/11/2012 12:00 AM Depo-Medrol, Per 80 Mg [facility]#5886-6668-71 Reviewed 03/11/2012 12:00 AM Rocephin 1 gram [facility]#2548-2729-88 Reviewed 04/11/2012 12:00 AM Flu Injection 3 Years And Above [facility]# [address]-56 [facility] Reviewed 05/08/2017 12:00 AM THERAPEUTIC PROPHYLACTIC/DX INJECTION SUBQ/IM Reviewed 05/08/2017 12:00 AM Toradol 60 Mg Injection, [facility] Medicare Reviewed 07/31/2017 12:00 AM ASSAY OF NATRIURETIC PEPTIDE Returned 10/27/2012 12:00 AM THER/PROPH/DIAG INJ SC/IM Reviewed 10/27/2012 12:00 AM Decadron, Per 1 Mg [facility]# [address]-52 Reviewed 10/27/2012 12:00 AM Depo-Medrol, Per 80 Mg [facility]#7449-2871-26 Reviewed 12/26/2012 12:00 AM COMPLETE CBC W/AUTO DIFF WBC Reviewed 12/26/2012 12:00 AM COMPREHEN METABOLIC PANEL Reviewed 12/26/2012 12:00 AM LIPID PANEL Reviewed 12/26/2012 12:00 AM ASSAY THYROID STIM HORMONE Reviewed 08/27/2013 12:00 AM THER/PROPH/DIAG INJ SC/IM Reviewed 08/27/2013 12:00 AM Toradol 60 Mg [facility]#3072-0554-16 Reviewed 12/01/2013 12:00 AM THER/PROPH/DIAG INJ SC/IM Reviewed 12/01/2013 12:00 AM Toradol 60 Mg [facility]#3118-3978-59 Reviewed 07/17/2010 12:00 AM THER/PROPH/DIAG INJ SC/IM Reviewed 07/17/2010 12:00 AM Decadron Inj.6mg-([facility]) [facility] #[id number] Reviewed 07/17/2010 12:00 AM Depo-Medrol 120 Mg Im/[facility] [id number] Reviewed 04/21/2014 12:00 AM IMMUNIZATION ADMIN Reviewed 04/21/2014 12:00 AM THER/PROPH/DIAG INJ SC/IM Reviewed 04/21/2014 12:00 AM Decadron, Per 1 Mg [facility]# [address]-54 Reviewed 04/21/2014 12:00 AM Depo-Medrol, Per 80 Mg [facility]#9014-6454-23 Reviewed 05/14/2014 12:00 AM THER/PROPH/DIAG INJ SC/IM Reviewed 05/14/2014 12:00 AM Decadron, Per 1 Mg [facility]# [address]-77 Reviewed 05/14/2014 12:00 AM Depo-Medrol, Per 80 Mg [facility]#0793-3280-11 Reviewed 07/05/2014 12:00 AM THER/PROPH/DIAG INJ SC/IM Reviewed 07/05/2014 12:00 AM Decadron, Per 1 Mg [facility]# [address]-25 Reviewed 07/05/2014 12:00 AM Rocephin 1 gram [facility]#3507-3454-57 Reviewed Results Summary Date and Description Results [...] Number Start Date Medicare RHC Medicare RHC [id number] N/A [place] 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
--- OUTSIDE RECORDS SUMMARY | 2018-01-13 14:03 | XMS REPORT ---
Author Author ELOY AHUMADA [facility] Address [address] [place], [place] [id number] Care Team Providers Care Adz Worker Name Role Phone ELOY AHUMADA PCP [...] Reviewed 01/24/2015 12:00 AM Toradol 60 Mg [facility]#0826-2846-86 Reviewed 03/25/2015 12:00 AM Toradol 60 Mg ND#4327-7507-21 Reviewed 04/06/2015 12:00 AM MRI NECK SPINE W/O DYE Reviewed 05/27/2015 12:00 AM Decadron, Per 1 Mg [facility]# [address]-59 Reviewed 05/27/2015 12:00 AM Depo-Medrol, Per 80 Mg ND#6271-9222-18 Reviewed 05/27/2015 12:00 AM Rocephin 1 gram ND#2743-0568-07 Reviewed 02/26/2011 12:00 AM THER/PROPH/DIAG INJ SC/IM Reviewed 02/26/2011 12:00 AM Decadron Inj.1mg-([facility]) [facility][Note 3] #[id number] Reviewed 02/26/2011 12:00 AM Depo-Medrol 80 Mg Im/[facility] [id number] Reviewed 12/15/2015 12:00 AM Rocephin 1 gram [facility]#8390-2121-29 Reviewed 06/03/2016 12:00 AM THERAPEUTIC PROPHYLACTIC/DX INJECTION SUBQ/IM Reviewed 06/03/2016 12:00 AM Decadron 8mg Injection, [facility] Medicare Reviewed 06/27/2016 12:00 AM COMPREHEN METABOLIC PANEL Returned 06/27/2016 12:00 AM URINALYSIS AUTO W/SCOPE Returned 03/11/2012 12:00 AM THER/PROPH/DIAG INJ SC/IM Reviewed 03/11/2012 12:00 AM Decadron, Per 1 Mg [facility]# [address]-96 Reviewed 03/11/2012 12:00 AM Depo-Medrol, Per 80 Mg [facility]#6242-7001-83 Reviewed 03/11/2012 12:00 AM Rocephin 1 gram [facility]#0727-1773-16 Reviewed 04/11/2012 12:00 AM Flu Injection 3 Years And Above [facility]# [address]-42 [facility] Reviewed 10/27/2012 12:00 AM THER/PROPH/DIAG INJ SC/IM Reviewed 10/27/2012 12:00 AM Decadron, Per 1 Mg [facility]# [address]-94 Reviewed 10/27/2012 12:00 AM Depo-Medrol, Per 80 Mg [facility]#0972-3051-89 Reviewed 12/26/2012 12:00 AM COMPLETE CBC W/AUTO DIFF WBC Reviewed 12/26/2012 12:00 AM COMPREHEN METABOLIC PANEL Reviewed 12/26/2012 12:00 AM LIPID PANEL Reviewed 12/26/2012 12:00 AM ASSAY THYROID STIM HORMONE Reviewed 08/27/2013 12:00 AM THER/PROPH/DIAG INJ SC/IM Reviewed 08/27/2013 12:00 AM Toradol 60 Mg [facility]#8039-4994-26 Reviewed 12/01/2013 12:00 AM THER/PROPH/DIAG INJ SC/IM Reviewed 12/01/2013 12:00 AM Toradol 60 Mg [facility]#3680-4678-18 Reviewed 07/17/2010 12:00 AM THER/PROPH/DIAG INJ SC/IM Reviewed 07/17/2010 12:00 AM Decadron Inj.6mg-([facility]) [facility][Note 3] #[id number] Reviewed 07/17/2010 12:00 AM Depo-Medrol 120 Mg Im/[facility] [id number] Reviewed 04/21/2014 12:00 AM IMMUNIZATION ADMIN Reviewed 04/21/2014 12:00 AM THER/PROPH/DIAG INJ SC/IM Reviewed 04/21/2014 12:00 AM Decadron, Per 1 Mg [facility]# [address]-71 Reviewed 04/21/2014 12:00 AM Depo-Medrol, Per 80 Mg [facility]#8626-8126-73 Reviewed 05/14/2014 12:00 AM THER/PROPH/DIAG INJ SC/IM Reviewed 05/14/2014 12:00 AM Decadron, Per 1 Mg [facility]# [address]-26 Reviewed 05/14/2014 12:00 AM Depo-Medrol, Per 80 Mg [facility]#8383-2640-01 Reviewed 07/05/2014 12:00 AM THER/PROPH/DIAG INJ SC/IM Reviewed 07/05/2014 12:00 AM Decadron, Per 1 Mg [facility]# [address]-19 Reviewed 07/05/2014 12:00 AM Rocephin 1 gram [facility]#9949-8088-23 Reviewed Results Summary Data and Description Results [...] Abnormal kidney function Jul 12 2016 6:24AM Payers Insurance Name Company Name Plan Name Plan Number Policy Number Policy Group Number Start Date Medicare RHC Medicare RHC [id number] N/A [place] [employer] [facility] [employer] [facility] - RHC [id number] N/A Medicare Part A Medicare - Lab/Xray [id number] N/A Medicare Part B Medicare Of [place] [id number] N/A [place] Medical Assistance Program [place] [facility] [employer] Prog [id number] N/A Medicare Part A Medicare Part A [id number] N/A History of Encounters Visit Date Visit Type Provider 07/06/2016 Office visit ELOY BRITT 06/29/2016 Office visit ELOY BRITT 06/26/2016 Office visit ELOY BRITT 06/03/2016 Office visit ELOY BRITT 05/31/2016 Office visit ELOY BRITT 05/14/2016 Office visit ELOY BRITT 04/17/2016 Office visit ELOY BRITT 04/02/2016 Office visit ELOY BRITT 03/22/2016 [facility] Jhony Phelps MD 03/22/2016 [facility] Mukul Lopez MD 12/15/2015 Office visit [...]
--- OUTSIDE RECORDS SUMMARY | 2018-01-13 14:05 | XMS REPORT | Continuity of Care Document ---
Author Author [facility] Organization [facility] Address Unknown Phone Unavailable Allergies Active Description Code Type Severity Reaction Onset Reported/Identified Relationship to Patient Clinical Status Yes DEMEROL DEMEROL SEVERE Yes DEMEROL SEVERE DERMATOLOGICAL - LUI Yes meperidine HCl [id number] Drug Allergy Unknown VOMITING 04/21/2016 Yes pseudoephedrine [id number] Drug Allergy Unknown N/A 04/21/2016 Medications Medication Packaging Start Date Stop Date Route Dosage Sig ONDANSETRON VIAL INJ 4 MG/2CC (ZOFRAN 2CC VIAL) MG 04/20/2016 04/20/2016 PRN ONCE ACETAMINOPHEN TAB 500 MG (TYLENOL) MG 04/20/2016 04/20/2016 PRN ONCE Piperacillin-tazobactam IV 3.375Gm vial (Zosyn) GM 04/20/2016 04/20/2016 ONCE&1420 ACETAMINOPHEN ORAL TABLET 325mg(Tylenol) MG 04/20/2016 04/30/2016 PRN EVERY 4 Hour IPRATROPIUM/ALBUTEROL INH SOLN INH 0 (DUO-NEB INH SOLN) MLS 04/20/2016 04/27/2016 QID&0600,1100,1600,2100 KETOROLAC VIAL INJ 15 MG/CC (TORADOL VIAL) MG 04/20/2016 04/21/2016 PRN Q6H OXYCODONE 5MG/APAP 325MG TAB 0 (PERCOCET-5) TAB 04/20/2016 04/27/2016 PRN TID METHYLPREDNISOLONE VIAL INJ 125 MG/2CC (SOLU-MEDROL VIAL) MG 04/20/2016 04/25/2016 Q6H&0600,1200,1800,2359 D5 1/2 NS 1000CC IV BAG INJ 0 ml 04/27/2016 CONTINUOUSEVERY 0 Hour PANTOPAZOLE VIAL INJ 40 MG (PROTONIX IV) MG 04/20/2016 04/20/2016 ONCE&1806 ONDANSETRON VIAL INJ 4 MG/2CC (ZOFRAN 2CC VIAL) MG 04/20/2016 04/20/2016 PRN ONCE URO-JET (LIDOCAINE) INJ 2 % (UROJECT) APPLICATION 04/20/2016 04/20/2016 ONCE&1946 ACETAZOLAMIDE TAB 250 MG (DIAMOX) MG 04/20/2016 04/30/2016 BID&0800,2000 PHENAZOPYRIDINE TAB 100 MG (PYRIDIUM) MG 04/20/2016 04/27/2016 TID&0800,1400,2000 ALPRAZOLAM TAB 0.5 MG (XANAX) MG 04/30/2016 PRN TID ACETYLCYSTEINE 20% RT LIQ 20 % (MUCOMYST 20% RT) cc 04/20/2016 04/30/2016 TID&0800,1400,2000 NORMAL SALINE 250CC IV BAG INJ 0.9 % (NS 250CC IV BAG) ml 04/20/2016 04/27/2016 BID&0800,2000 BUDESONIDE INHALATION SUSP AMP 0.5 MG/2CC (PULMICORT) MG 04/20/2016 04/27/2016 BID&0800,2000 ONDANSETRON VIAL INJ 4 MG/2CC (ZOFRAN 2CC VIAL) MG 04/20/2016 04/27/2016 PRN Q4H NORMAL SALINE 500CC IV BAG INJ 0.9 % (NS 500CC IV BAG) ml 04/20/2016 04/20/2016 ONCE&2330 ALPRAZOLAM TAB 0.5 MG (XANAX) MG 04/30/2016 PRN Q6H GUAIFENESIN TAB 600 MG (MUCINEX) MG 04/21/2016 04/27/2016 Q12H&0600,1800 LACTOBACILLUS BULGARIS TAB 0 (LACTINEX BULGARIS) tab 04/21/2016 04/30/2016 QID&0800,1200,1700,2200 LEVOFLOXACIN PREMIX IV BAG INJ 500 MG/100CC (LEVAQUIN IV PREMIX 100CC BAG) MG 04/21/2016 04/27/2016 Daily&0900 ENOXAPARIN SYRINGE INJ 30 MG (LOVENOX SYRINGE) MG 04/21/2016 04/30/2016 Daily&0900 FUROSEMIDE VIAL INJ 40 MG (LASIX VIAL) MG 04/21/2016 04/27/2016 Daily&0900 PANTOPAZOLE VIAL INJ 40 MG (PROTONIX IV) MG 04/21/2016 04/30/2016 Daily&0900 Problems Date Dx Coded Attending Type Code Diagnosis Diagnosed By 06/21/2011 Ot 530.81 ESOPHAGEAL REFLUX 06/21/2011 Ot 789.09 ABDOMINAL PAIN, OTHER SPECIFIED SITE 11/08/2015 KLEVER MEANS MD, Ot M77.32 CALCANEAL SPUR, LEFT FOOT 11/08/2015 KLEVER MEANS MD, Ot S96.212A STRAIN OF INTRINSIC MSL/TND AT ANK/FT LE 11/08/2015 KLEVER MEANS MD Ot X58.XXXA EXPOSURE TO OTHER SPECIFIED FACTORS, INI 11/08/2015 KLEVER EMANS MD Ot Y99.8 OTHER EXTERNAL CAUSE STATUS 11/10/2015 KLEVER MEANS MD, Ot M77.32 CALCANEAL SPUR, LEFT FOOT 11/10/2015 KLEVER MEANS MD, Ot S96.212A STRAIN OF INTRINSIC MSL/TND AT ANK/FT LE 11/10/2015 KLEVER MEANS MD Ot X58.XXXA EXPOSURE TO OTHER SPECIFIED FACTORS, INI 11/10/2015 KLEVER MEANS MD, Ot Y99.8 OTHER EXTERNAL CAUSE STATUS 04/20/2016 Cris Singh A 482.41 METHICILLIN SUSCEPTIBLE PNEUMONIA DUE TO STAPHYLOCOCCUS AUREUS 04/20/2016 Cris Singh W 486 PNEUMONIA, ORGANISM UNSPECIFIED 04/20/2016 Cris Singh A J15.211 PNEUMONIA DUE TO METHICILLIN SUSCEP STAPH 04/20/2016 Cris Singh J18.8 OTHER PNEUMONIA, UNSPECIFIED ORGANISM 04/20/2016 Cris Singh W 496 CHRONIC AIRWAY OBSTRUCTION, NOT ELSEWHERE CLASSIFIED 04/20/2016 Cris Singh J44.9 CHRONIC OBSTRUCTIVE PULMONARY DISEASE, UNSPECIFIED 04/20/2016 Cris Singh W 799.02 HYPOXEMIA 04/20/2016 Cris Singh W R09.02 HYPOXEMIA 04/21/2016 Ot 553.3 DIAPHRAGMATIC HERNIA 04/21/2016 Ot 562.10 DIVERTICULOSIS COLON (W/O MENT OF HEMORR 04/21/2016 Ot 753.10 CYSTIC KIDNEY DISEASE, UNSPECIFIED 04/21/2016 Ot 789.04 ABDOMINAL PAIN, LEFT LOWER QUADRANT 04/21/2016 LISA YATES DO Ot 716.91 ARTHROPATHY NOS-SHLDER 04/21/2016 LISA YATES DO Ot 726.0 ADHESIVE CAPSULIT SHLDER 04/24/2016 NGUYEN OLSON DO Ot D72.829 ELEVATED WHITE BLOOD CELL COUNT, UNSPECI 04/24/2016 NGUYEN OLSON DO Ot E66.9 OBESITY, UNSPECIFIED 04/24/2016 WESLEY TIJERINA NGUYEN Ot E87.6 HYPOKALEMIA 04/24/2016 ANALISA OLSON DOI Ot 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 TRICUSPID INSUFFICIENCY 04/24/2016 WESLEY TIJERINA NGUYEN Ot I10 ESSENTIAL (PRIMARY) HYPERTENSION 04/24/2016 ANALISA OLSON DOI Ot 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 PULMONARY HYPERTENSION 04/24/2016 ANALISA OLSON DOI Ot J18.9 PNEUMONIA, UNSPECIFIED ORGANISM 04/24/2016 ANALISA OLSON DOI Ot J44.0 CHRONIC OBSTRUCTIVE PULMON DISEASE W ACU 04/24/2016 ANALISA OLSON DOI Ot J44.1 CHRONIC OBSTRUCTIVE PULMONARY DISEASE W 04/24/2016 WESLEY TIJERINA NGUYEN Ot J96.22 ACUTE AND CHRONIC RESPIRATORY FAILURE [place] 04/24/2016 WESLEY TIJERINA NGUYEN Ot K21.9 GASTRO-ESOPHAGEAL REFLUX DISEASE WITHOUT 04/24/2016 WESLEY TIJERINA NGUYEN Ot M48.00 SPINAL STENOSIS, SITE UNSPECIFIED 04/24/2016 WESLEY TIJERINA NGUYEN Ot T49.0X5A ADVERSE EFFECT OF LOCAL ANTIFUNG/INFECT/ 04/24/2016 WESLEY TIJERINA NGUYEN Ot Z68.37 BODY MASS INDEX (BMI) 37.0-37.9, ADULT 04/24/2016 WESLEY TIJERINA NGUYEN Ot Z87.891 PERSONAL HISTORY OF NICOTINE DEPENDENCE 04/24/2016 NGUYEN OLSON DO Ot Z99.81 DEPENDENCE ON SUPPLEMENTAL OXYGEN 04/30/2016 HONEY GORE MD Ot D72.829 ELEVATED WHITE BLOOD CELL COUNT, UNSPECI 04/30/2016 HONEY GORE MD Ot E66.9 OBESITY, UNSPECIFIED 04/30/2016 HONEY GORE MD Ot E87.6 HYPOKALEMIA 04/30/2016 HONEY GORE MD Ot F41.9 ANXIETY DISORDER, UNSPECIFIED 04/30/2016 HONEY GORE MD, Ot 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 TRICUSPID INSUFFICIENCY 04/30/2016 HONEY GORE MD, Ot I10 ESSENTIAL (PRIMARY) HYPERTENSION 04/30/2016 HONEY GORE MD, Ot 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 PULMONARY HYPERTENSION 04/30/2016 HONEY GORE MD, Ot J15.211 PNEUMONIA DUE TO METHICILLIN SUSCEP STAP 04/30/2016 HONEY GORE MD, Ot J44.0 CHRONIC OBSTRUCTIVE PULMON DISEASE W ACU 04/30/2016 HONEY GORE MD, Ot J44.1 CHRONIC OBSTRUCTIVE PULMONARY DISEASE W 04/30/2016 HONEY GORE MD, Ot J96.22 ACUTE AND CHRONIC RESPIRATORY FAILURE [place] 04/30/2016 HONEY GORE MD, Ot K21.9 GASTRO-ESOPHAGEAL REFLUX DISEASE WITHOUT 04/30/2016 HONEY GORE MD, Ot K59.00 CONSTIPATION, UNSPECIFIED 04/30/2016 HONEY GORE MD, Ot M48.00 SPINAL STENOSIS, SITE UNSPECIFIED 04/30/2016 HONEY GORE MD Ot T38.0X5A ADVERSE EFFECT OF GLUCOCORT/SYNTH ANALOG 04/30/2016 HONEY GORE MD, Ot T49.0X5A ADVERSE EFFECT OF LOCAL ANTIFUNG/INFECT/ 04/30/2016 HONEY GORE MD, Ot Z68.24 BODY MASS INDEX (BMI) 24.0-24.9, ADULT 04/30/2016 HONEY GORE MD, Ot Z87.891 PERSONAL HISTORY OF NICOTINE DEPENDENCE 04/30/2016 HONEY GORE MD Ot Z99.81 DEPENDENCE ON SUPPLEMENTAL OXYGEN 05/17/2016 SVEN VIGIL MD, Ot E78.5 HYPERLIPIDEMIA, UNSPECIFIED 05/17/2016 SVEN VIGIL MD, Ot I50.9 HEART FAILURE, UNSPECIFIED 05/17/2016 SVEN VIGIL MD, Ot K57.92 DVTRCLI OF INTEST, PART UNSP, W/O PERF O 05/17/2016 SVEN VIGIL MD, Ot E78.5 HYPERLIPIDEMIA, UNSPECIFIED 05/17/2016 SVEN VIGIL MD, Ot I50.9 HEART FAILURE, UNSPECIFIED 05/17/2016 SVEN VIGIL MD, Ot K57.92 DVTRCLI OF INTEST, PART UNSP, W/O PERF O 06/06/2016 MUSA DEAN, SVEN Jones Ot E78.5 HYPERLIPIDEMIA, UNSPECIFIED 06/06/2016 MUSA DEAN, SVEN Jones Ot I50.9 HEART FAILURE, UNSPECIFIED 06/06/2016 MUSA DEAN, SVEN Jones Ot K57.92 DVTRCLI OF INTEST, PART UNSP, W/O PERF O 06/15/2016 MUSA DEAN, SVEN Jones Ot E78.5 HYPERLIPIDEMIA, UNSPECIFIED 06/15/2016 MUSA DEAN, SVEN Jones Ot I50.9 HEART FAILURE, UNSPECIFIED 06/15/2016 MUSA DEAN, SVEN Jones Ot K57.92 DVTRCLI OF INTEST, PART UNSP, W/O PERF O 06/18/2016 NICHELLE CRISTOBAL HEALTH SERVICE COORDINATOR Ot F17.201 NICOTINE DEPENDENCE, UNSPECIFIED, IN REM 06/18/2016 NICHELLE CRISTOBAL HEALTH SERVICE COORDINATOR Ot J18.9 PNEUMONIA, UNSPECIFIED ORGANISM 06/18/2016 ELIJAH CRISTOBALINE Robert HEALTH SERVICE COORDINATOR Ot 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 06/19/2016 ELIJAH CRISTOBALINE E HEALTH SERVICE COORDINATOR Ot F17.201 NICOTINE DEPENDENCE, UNSPECIFIED, IN REM 06/19/2016 NICHELLE CRISTOBAL HEALTH SERVICE COORDINATOR Ot J18.9 PNEUMONIA, UNSPECIFIED ORGANISM 06/19/2016 SUSUELIJAHNICHELLE E HEALTH SERVICE COORDINATOR Ot 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, [facility] 06/20/2016 ELIJAH CRISTOBALINE E HEALTH SERVICE COORDINATOR Ot F17.201 NICOTINE DEPENDENCE, UNSPECIFIED, IN REM 06/20/2016 NICHELLE CRISTOBAL HEALTH SERVICE COORDINATOR Ot J18.9 PNEUMONIA, UNSPECIFIED ORGANISM 06/20/2016 ELIJAH CRISTOBALINE Robert HEALTH SERVICE COORDINATOR Ot 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, [facility] 07/05/2016 NICHELLE CRISTOBAL HEALTH SERVICE COORDINATOR Ot J45.909 UNSPECIFIED ASTHMA, UNCOMPLICATED 07/05/2016 ELIJAH CRISTOBALINE Robert HEALTH SERVICE COORDINATOR Ot 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, [facility] HY[facility] 07/06/2016 ELIJAH CRISTOBALINE Robert HEALTH SERVICE COORDINATOR Ot J45.909 UNSPECIFIED ASTHMA, UNCOMPLICATED 07/06/2016 ELIJAH CRISTOBALINE E HEALTH SERVICE COORDINATOR Ot 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, [facility] 07/09/2016 NICHELLE CRISTOBAL HEALTH SERVICE COORDINATOR Ot F17.201 NICOTINE DEPENDENCE, UNSPECIFIED, IN REM 07/09/2016 NICHELLE CRISTOBAL HEALTH SERVICE COORDINATOR Ot J18.9 PNEUMONIA, UNSPECIFIED ORGANISM 07/09/2016 NICHELLE CRISTOBAL HEALTH SERVICE COORDINATOR Ot 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, UNSP W HYPOX 08/02/2016 NICHELLE CRISTOBAL HEALTH SERVICE COORDINATOR Ot J45.909 UNSPECIFIED ASTHMA, UNCOMPLICATED 08/02/2016 NICHELLE CRISTOBAL HEALTH SERVICE COORDINATOR Ot 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, UNSP W HYPOX 08/10/2016 NICHELLE CRISTOBAL HEALTH SERVICE COORDINATOR Ot J45.909 UNSPECIFIED ASTHMA, UNCOMPLICATED 08/10/2016 NICHELLE CRISTOBAL HEALTH SERVICE COORDINATOR Ot 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, UNSP W HYPOX 12/31/2016 Humble Mckinley 491.20 OBSTRUCTIVE CHRONIC BRONCHITIS, WITHOUT EXACERBATION 12/31/2016 Humble Mckinley J44.9 CHRONIC OBSTRUCTIVE PULMONARY DISEASE, UNSPECIFIED 01/09/2017 MUSA DEAN, SVEN Jones Ot E11.9 TYPE 2 DIABETES MELLITUS WITHOUT COMPLIC 01/09/2017 MUSA DEAN, SVEN Jones Ot E11.9 TYPE 2 DIABETES MELLITUS WITHOUT COMPLIC 01/14/2017 MUSA DEAN, SVEN Jones Ot E11.9 TYPE 2 DIABETES MELLITUS WITHOUT COMPLIC 01/28/2017 MUSA DEAN, SVEN Jones Ot E11.9 TYPE 2 DIABETES MELLITUS WITHOUT COMPLIC 02/08/2017 MUSA DEAN, SVEN Jones Ot E11.9 TYPE 2 DIABETES MELLITUS WITHOUT COMPLIC 04/25/2017 Rio John 728.87 MUSCLE WEAKNESS (GENERALIZED) 04/25/2017 Roi John M62.81 MUSCLE WEAKNESS (GENERALIZED) Procedures Code Description Performed By Performed On [id number] INSERT INFUSION DEV IN R INT JUGULAR VEI 04/23/2016 Results Test Result Range BNP - 04/20/16 11:36 BNP 37.00 pg/ml 0.00-100.00 Urinalysis - 04/20/16 11:36 Icotest N/A Negative Urine Volume Urine Volume Sufficient (10mL) Urine Yeast No Yeast present Urine-Appearance Clear Clear Urine-Bacteria Negative Urine-Bilirubin Negative Negative Urine-Blood 2+ Negative Urine-Color Yellow Colorless-Lt. Yellow Urine-Epithelial Cells 0-5/HPF Urine-Glucose Negative Negative Urine-Ketones Negative Negative Urine-Leukocytes Negative Negative Urine-Nitrite Negative Negative Urine-Other Urine Saved if Culture Needed (48hrs from time of collection) Urine-pH 7.0 5-8.5 Urine-Protein Trace Negative Urine-RBC 2-5/HPF Urine-Specific [place] 1.020 1.000-1.030 Urine-WBC Rare/HPF Urobilinogen 0.2 E.U./dL 0.2-1.0 Blood Culture - 04/20/16 11:36 PRELIM CULTURE RESULTS Blood Culture Negative, No Growth Day 1 FINAL CULTURE RESULTS Blood Culture Negative, No Growth Day 5 MEDIA PLATED Setup at 12:53 on 04/20/2016 Blood Culture Media Position A12 CULTURE SOURCE peripheral - Right Hand Arterial Blood Gas - 04/20/16 11:38 Base 13.00 mmol/L 1.80-4.20 HCO3 38 mmol/L 20-31 O2 Sat 83 6L % 95-100 pCO2 63 mm/Hg 35-45 pH 7.38 7.35-7.45 PO2 51 mm/Hg 80-95 Blood Culture - 04/20/16 11:38 PRELIM CULTURE RESULTS Blood Culture Negative, No Growth Day 1 FINAL CULTURE RESULTS Blood Culture Negative, No Growth Day 5 MEDIA PLATED Setup at 12:54 on 04/20/2016 Blood Culture Media Position A13 CULTURE SOURCE From ABG sample Sputum Culture - 04/20/16 12:20 PRELIM CULTURE RESULTS Abundant Gram Positive JAMEY / ID to Follow MEDIA PLATED Setup at 12:33 on 04/20/2016 Sensi - 04/20/16 12:20 FINAL CULTURE RESULTS Staphylococcus aureus (Isolate 1) Ampicillin/Sulbactam <=8/4 Ampicillin <=2 Amoxicillin/K Clavulanate <=4/2 Ceftriaxone <=8 Clindamycin >4 Cefoxitin Screen <=4 Ciprofloxacin <=1 Daptomycin <=0.5 Erythromycin >4 Nitrofurantoin <=32 Gentamicin <=4 Gentamicin Synergy Screen N/R Inducible Clindamycin N/R Levofloxacin <=1 Linezolid 2 Moxifloxacin <=0.5 Oxacillin <=0.25 Penicillin <=0.03 Rifampin <=1 Streptomycin Synergy N/R Synercid <=0.5 Trimethoprim/ Sulfamethoxazole <=0.5/9.5 Tetracycline >8 Vancomycin 1 Arterial Blood Gas - 04/20/16 12:50 Base 13.00 mmol/L 1.80-4.20 HCO3 38 mmol/L 20-31 O2 Sat 90 6L % 95-100 pCO2 62 mm/Hg 35-45 pH 7.39 7.35-7.45 PO2 61 mm/Hg 80-95 Arterial Blood Gas - 04/20/16 14:38 Base 13.00 mmol/L 1.80-4.20 HCO3 37 mmol/L 20-31 O2 Sat 96 40 % Bipap % 95-100 pCO2 62 mm/Hg 35-45 pH 7.39 7.35-7.45 PO2 87 mm/Hg 80-95 Legionella Urine Antigen - 04/20/16 19:42 Legionella pneumophila Urinary Antigen NEGATIVE NEGATIVE Manual Differential - 04/21/16 05:25 Band 5 Lym% 2.0 % 10.0-50.0 Summers% 2.0 % 0.0-12.0 Dhiraj% 91.0 % 37.0-80.0 WBC 29.23 K/uL 5.00-10.00 BMP - 04/21/16 05:25 Anion Gap 15 6-14 BUN 21 mg/dL 5-25 Calcium 9.2 mg/dL 8.3-10.4 Chloride 101 mmol/L 95-114 CO2 31 mEq/L 22-33 Creat 0.85 mg/dL 0.50-1.50 eGFR 66 mL/min/1.73m2 >59 Glucose 186 mg/dL 70-110 Osmo 302 280-295 Potassium 3.6 mmol/L 3.5-5.3 Sodium 143 mmol/L 134-148 Arterial Blood Gas - 04/21/16 05:32 Base 6.00 mmol/L 1.80-4.20 HCO3 32 mmol/L 20-31 O2 Sat 89 BIPAP/ 6L % 95-100 pCO2 60 mm/Hg 35-45 pH 7.34 7.35-7.45 PO2 63 mm/Hg 80-95 Lactic Acid - 04/21/16 06:49 Lactic Acid 20.8 mg/dL 4.5-19.8 Peripheral Smear - 04/21/16 06:52 Peripheral smear Sent to [facility] for review CBC with Auto Diff - 04/21/16 07:57 Baso% 0.00 % 0.00-2.50 Eos 0.0 K/uL 0.0-0.7 Eos% 0.0 % 0.0-7.0 Hct 36.4 % 36.0-46.0 Hgb 11.0 g/dL 13.0-15.0 Lym 0.93 K/uL 0.60-3.40 Lym% 3.5 % 10.0-50.0 MCH 29.4 pg 27.0-31.0 MCHC 30.2 g/dL 32.0-36.0 MCV 97.3 fL 80.0-97.0 Summers% 1.5 % 0.0-12.0 MPV 9.6 fL 7.4-10.0 Dhiraj% 95.0 % 37.0-80.0 Plt 263 K/uL 150-400 RBC 3.74 M/uL 3.60-5.00 RDW 14.9 % 11.6-14.8 WBC 26.38 Result Verified by Repeat Analysis K/uL 5.00- 10.00 Dhiraj 25.03 K/uL 2.00-6.90 Summers 0.4 K/uL 0.0-0.9 Baso 0.0 K/uL 0.0-0.2 Arterial Blood Gas - 04/21/16 09:55 Base 8.00 mmol/L 1.80-4.20 HCO3 33 mmol/L 20-31 O2 Sat 94 BIPAP % 95-100 pCO2 58 mm/Hg 35-45 pH 7.36 7.35-7.45 PO2 77 mm/Hg 80-95 Complete blood count (CBC) with automated white blood cell (WBC) differential - 04/21/16 14:35 Blood leukocytes automated count (number/volume) 27.8 10*3/uL 4.3-11.0 Blood erythrocytes automated count (number/volume) 3.72 10*6/uL 4.35-5.85 Venous blood hemoglobin measurement (mass/volume) 10.9 g/dL 11.5-16.0 Blood hematocrit (volume fraction) 36 % 35-52 Automated erythrocyte mean corpuscular volume 96 [foz_us] 80-99 Automated erythrocyte mean corpuscular hemoglobin (mass per erythrocyte) 29 pg 25-34 Automated erythrocyte mean corpuscular hemoglobin concentration measurement ( mass/volume) 30 g/dL 32-36 Automated erythrocyte distribution width ratio 15.1 % 10.0-14.5 Automated blood platelet count (count/volume) 271 10*3/uL 130-400 Automated blood platelet mean volume measurement 9.8 [foz_us] 7.4-10.4 Automated blood neutrophils/100 leukocytes 95 % 42-75 Automated blood lymphocytes/100 leukocytes 3 % 12-44 Blood monocytes/100 leukocytes 3 % 0-12 Automated blood eosinophils/100 leukocytes 0 % 0-10 Automated blood basophils/100 leukocytes 0 % 0-10 Blood neutrophils automated count (number/volume) 26.3 10*3 1.8-7.8 Blood lymphocytes automated count (number/volume) 0.7 10*3 1.0-4.0 Blood monocytes automated count (number/volume) 0.8 10*3 0.0-1.0 Automated eosinophil count 0.0 10*3/uL 0.0-0.3 Automated blood basophil count (count/volume) 0.0 10*3/uL 0.0-0.1 Comprehensive metabolic panel - 04/21/16 14:35 Serum or plasma sodium measurement (moles/volume) 140 mmol/L 135-145 Serum or plasma potassium measurement (moles/volume) 3.1 mmol/L 3.6-5.0 Serum or plasma chloride measurement (moles/volume) 98 mmol/L 98-107 Carbon dioxide 32 mmol/L 21-32 Serum or plasma anion gap determination (moles/volume) 10 mmol/L 5-14 Serum or plasma urea nitrogen measurement (mass/volume) 21 mg/dL 7-18 Serum or plasma creatinine measurement (mass/volume) 0.88 mg/dL 0.60-1.30 Serum or plasma urea nitrogen/creatinine mass ratio 24 NRG Serum or plasma creatinine measurement with calculation of estimated glomerular filtration rate > NRG Serum or plasma glucose measurement (mass/volume) 154 mg/dL 70-105 Serum or plasma calcium measurement (mass/volume) 8.7 mg/dL 8.5-10.1 Serum or plasma total bilirubin measurement (mass/volume) 0.3 mg/dL 0.1-1.0 Serum or plasma alkaline phosphatase measurement (enzymatic activity/volume) 69 U/L 40-136 Serum or plasma aspartate aminotransferase measurement (enzymatic activity/ volume) 26 U/L 5-34 Serum or plasma alanine aminotransferase measurement (enzymatic activity/volume ) 34 U/L 0-55 Serum or plasma protein measurement (mass/volume) 6.4 g/dL 6.4-8.2 Serum or plasma albumin measurement (mass/volume) 3.6 g/dL 3.2-4.5 Blood manual differential performed detection - 04/21/16 14:35 Blood monocytes/100 leukocytes 4 % NRG Manual blood segmented neutrophils/100 leukocytes 91 % NRG Blood band neutrophils/100 leukocytes 4 % NRG Manual blood lymphocytes/100 leukocytes 0 % NRG Manual eosinophils/100 leukocytes in nose 0 % NRG Manual blood basophils/100 leukocytes 0 % NRG Blood lymphocytes variant/100 leukocytes 1 % NRG Blood erythrocyte morphology finding identification NORMAL NRG Serum or plasma troponin i.cardiac measurement (mass/volume) - 04/21/16 14:35 Serum or plasma troponin i.cardiac measurement (mass/volume) < ng/ mL <0.30 Serum or plasma lithium measurement (moles/volume) - 04/21/16 14:35 BNP level 111.5 pg/mL <100.0 Sputum Gram stain - 04/22/16 02:42 GRAM STAIN SPUTUM YEAST CELLS OBSERVED NRG Bacterial sputum culture - 04/22/16 02:42 FREE TEXT EXTERNAL FEW COLONIES SEEN NRG QUANTITY OF GROWTH Isolated NRG MRSA AGAR Screening test for MRSA is NEGATIVE (Final to follow) NR Bacterial sputum culture [id number] NRG Magnesium - 04/22/16 13:00 Magnesium 2.4 mg/dL 1.8-2.4 Complete blood count (CBC) with automated white blood cell (WBC) differential - 04/23/16 04:55 Blood leukocytes automated count (number/volume) 21.0 10*3/uL 4.3-11.0 Blood erythrocytes automated count (number/volume) 3.78 10*6/uL 4.35-5.85 Venous blood hemoglobin measurement (mass/volume) 11.0 g/dL 11.5-16.0 Blood hematocrit (volume fraction) 36 % 35-52 Automated erythrocyte mean corpuscular volume 95 [foz_us] 80-99 Automated erythrocyte mean corpuscular hemoglobin (mass per erythrocyte) 29 pg 25-34 Automated erythrocyte mean corpuscular hemoglobin concentration measurement ( mass/volume) 31 g/dL 32-36 Automated erythrocyte distribution width ratio 15.6 % 10.0-14.5 Automated blood platelet count (count/volume) 315 10*3/uL 130-400 Automated blood platelet mean volume measurement 10.1 [foz_us] 7.4-10.4 Automated blood neutrophils/100 leukocytes 92 % 42-75 Automated blood lymphocytes/100 leukocytes 5 % 12-44 Blood monocytes/100 leukocytes 4 % 0-12 Automated blood eosinophils/100 leukocytes 0 % 0-10 Automated blood basophils/100 leukocytes 0 % 0-10 Blood neutrophils automated count (number/volume) 19.2 10*3 1.8-7.8 Blood lymphocytes automated count (number/volume) 1.0 10*3 1.0-4.0 Blood monocytes automated count (number/volume) 0.8 10*3 0.0-1.0 Automated eosinophil count 0.0 10*3/uL 0.0-0.3 Automated blood basophil count (count/volume) 0.0 10*3/uL 0.0-0.1 Whole blood basic metabolic panel - 04/23/16 04:55 Serum or plasma sodium measurement (moles/volume) 143 mmol/L 135-145 Serum or plasma potassium measurement (moles/volume) 3.7 mmol/L 3.6-5.0 Serum or plasma chloride measurement (moles/volume) 105 mmol/L 98-107 Carbon dioxide 29 mmol/L 21-32 Serum or plasma anion gap determination (moles/volume) 9 mmol/L 5-14 Serum or plasma urea nitrogen measurement (mass/volume) 24 mg/dL 7-18 Serum or plasma creatinine measurement (mass/volume) 0.83 mg/dL 0.60-1.30 Serum or plasma urea nitrogen/creatinine mass ratio 29 NRG Serum or plasma creatinine measurement with calculation of estimated glomerular filtration rate > NRG Serum or plasma glucose measurement (mass/volume) 161 mg/dL 70-105 Serum or plasma calcium measurement (mass/volume) 9.1 mg/dL 8.5-10.1 Complete blood count (CBC) with automated white blood cell (WBC) differential - 04/26/16 07:15 Blood leukocytes automated count (number/volume) 17.5 10*3/uL 4.3-11.0 Blood erythrocytes automated count (number/volume) 4.09 10*6/uL 4.35-5.85 Venous blood hemoglobin measurement (mass/volume) 11.8 g/dL 11.5-16.0 Blood hematocrit (volume fraction) 38 % 35-52 Automated erythrocyte mean corpuscular volume 94 [foz_us] 80-99 Automated erythrocyte mean corpuscular hemoglobin (mass per erythrocyte) 29 pg 25-34 Automated erythrocyte mean corpuscular hemoglobin concentration measurement ( mass/volume) 31 g/dL 32-36 Automated erythrocyte distribution width ratio 15.4 % 10.0-14.5 Automated blood platelet count (count/volume) 282 10*3/uL 130-400 Automated blood platelet mean volume measurement 9.6 [foz_us] 7.4-10.4 Automated blood neutrophils/100 leukocytes 75 % 42-75 Automated blood lymphocytes/100 leukocytes 16 % 12-44 Blood monocytes/100 leukocytes 8 % 0-12 Automated blood eosinophils/100 leukocytes 1 % 0-10 Automated blood basophils/100 leukocytes 0 % 0-10 Blood neutrophils automated count (number/volume) 13.1 10*3 1.8-7.8 Blood lymphocytes automated count (number/volume) 2.8 10*3 1.0-4.0 Blood monocytes automated count (number/volume) 1.4 10*3 0.0-1.0 Automated eosinophil count 0.1 10*3/uL 0.0-0.3 Automated blood basophil count (count/volume) 0.1 10*3/uL 0.0-0.1 Comprehensive metabolic panel - 04/26/16 07:15 Serum or plasma sodium measurement (moles/volume) 145 mmol/L 135-145 Serum or plasma potassium measurement (moles/volume) 2.9 mmol/L 3.6-5.0 Serum or plasma chloride measurement (moles/volume) 100 mmol/L 98-107 Carbon dioxide 34 mmol/L 21-32 Serum or plasma anion gap determination (moles/volume) 11 mmol/L 5-14 Serum or plasma urea nitrogen measurement (mass/volume) 18 mg/dL 7-18 Serum or plasma creatinine measurement (mass/volume) 0.75 mg/dL 0.60-1.30 Serum or plasma urea nitrogen/creatinine mass ratio 24 NRG Serum or plasma creatinine measurement with calculation of estimated glomerular filtration rate > NRG Serum or plasma glucose measurement (mass/volume) 84 mg/dL 70-105 Serum or plasma calcium measurement (mass/volume) 8.3 mg/dL 8.5-10.1 Serum or plasma total bilirubin measurement (mass/volume) 0.4 mg/dL 0.1-1.0 Serum or plasma alkaline phosphatase measurement (enzymatic activity/volume) 45 U/L 40-136 Serum or plasma aspartate aminotransferase measurement (enzymatic activity/ volume) 22 U/L 5-34 Serum or plasma alanine aminotransferase measurement (enzymatic activity/volume ) 37 U/L 0-55 Serum or plasma protein measurement (mass/volume) 5.7 g/dL 6.4-8.2 Serum or plasma albumin measurement (mass/volume) 3.6 g/dL 3.2-4.5 Complete blood count (CBC) with automated white blood cell (WBC) differential - 04/27/16 06:16 Blood leukocytes automated count (number/volume) 17.9 10*3/uL 4.3-11.0 Blood erythrocytes automated count (number/volume) 4.03 10*6/uL 4.35-5.85 Venous blood hemoglobin measurement (mass/volume) 11.6 g/dL 11.5-16.0 Blood hematocrit (volume fraction) 37 % 35-52 Automated erythrocyte mean corpuscular volume 93 [foz_us] 80-99 Automated erythrocyte mean corpuscular hemoglobin (mass per erythrocyte) 29 pg 25-34 Automated erythrocyte mean corpuscular hemoglobin concentration measurement ( mass/volume) 31 g/dL 32-36 Automated erythrocyte distribution width ratio 15.3 % 10.0-14.5 Automated blood platelet count (count/volume) 263 10*3/uL 130-400 Automated blood platelet mean volume measurement 9.9 [foz_us] 7.4-10.4 Automated blood neutrophils/100 leukocytes 78 % 42-75 Automated blood lymphocytes/100 leukocytes 14 % 12-44 Blood monocytes/100 leukocytes 7 % 0-12 Automated blood eosinophils/100 leukocytes 1 % 0-10 Automated blood basophils/100 leukocytes 0 % 0-10 Blood neutrophils automated count (number/volume) 13.9 10*3 1.8-7.8 Blood lymphocytes automated count (number/volume) 2.5 10*3 1.0-4.0 Blood monocytes automated count (number/volume) 1.2 10*3 0.0-1.0 Automated eosinophil count 0.2 10*3/uL 0.0-0.3 Automated blood basophil count (count/volume) 0.1 10*3/uL 0.0-0.1 Comprehensive metabolic panel - 04/27/16 06:16 Serum or plasma sodium measurement (moles/volume) 142 mmol/L 135-145 Serum or plasma potassium measurement (moles/volume) 2.8 mmol/L 3.6-5.0 Serum or plasma chloride measurement (moles/volume) 100 mmol/L 98-107 Carbon dioxide 33 mmol/L 21-32 Serum or plasma anion gap determination (moles/volume) 9 mmol/L 5-14 Serum or plasma urea nitrogen measurement (mass/volume) 14 mg/dL 7-18 Serum or plasma creatinine measurement (mass/volume) 0.64 mg/dL 0.60-1.30 Serum or plasma urea nitrogen/creatinine mass ratio 22 NRG Serum or plasma creatinine measurement with calculation of estimated glomerular filtration rate > NRG Serum or plasma glucose measurement (mass/volume) 91 mg/dL 70-105 Serum or plasma calcium measurement (mass/volume) 8.1 mg/dL 8.5-10.1 Serum or plasma total bilirubin measurement (mass/volume) 0.5 mg/dL 0.1-1.0 Serum or plasma alkaline phosphatase measurement (enzymatic activity/volume) 44 U/L 40-136 Serum or plasma aspartate aminotransferase measurement (enzymatic activity/ volume) 20 U/L 5-34 Serum or plasma alanine aminotransferase measurement (enzymatic activity/volume ) 34 U/L 0-55 Serum or plasma protein measurement (mass/volume) 5.5 g/dL 6.4-8.2 Serum or plasma albumin measurement (mass/volume) 3.4 g/dL 3.2-4.5 Complete blood count (CBC) with automated white blood cell (WBC) differential - 04/29/16 05:06 Blood leukocytes automated count (number/volume) 14.3 10*3/uL 4.3-11.0 Blood erythrocytes automated count (number/volume) 4.21 10*6/uL 4.35-5.85 Venous blood hemoglobin measurement (mass/volume) 12.4 g/dL 11.5-16.0 Blood hematocrit (volume fraction) 39 % 35-52 Automated erythrocyte mean corpuscular volume 92 [foz_us] 80-99 Automated erythrocyte mean corpuscular hemoglobin (mass per erythrocyte) 30 pg 25-34 Automated erythrocyte mean corpuscular hemoglobin concentration measurement ( mass/volume) 32 g/dL 32-36 Automated erythrocyte distribution width ratio 15.8 % 10.0-14.5 Automated blood platelet count (count/volume) 285 10*3/uL 130-400 Automated blood platelet mean volume measurement 10.3 [foz_us] 7.4-10.4 Automated blood neutrophils/100 leukocytes 70 % 42-75 Automated blood lymphocytes/100 leukocytes 21 % 12-44 Blood monocytes/100 leukocytes 8 % 0-12 Automated blood eosinophils/100 leukocytes 1 % 0-10 Automated blood basophils/100 leukocytes 0 % 0-10 Blood neutrophils automated count (number/volume) 10.1 10*3 1.8-7.8 Blood lymphocytes automated count (number/volume) 2.9 10*3 1.0-4.0 Blood monocytes automated count (number/volume) 1.2 10*3 0.0-1.0 Automated eosinophil count 0.1 10*3/uL 0.0-0.3 Automated blood basophil count (count/volume) 0.0 10*3/uL 0.0-0.1 Comprehensive metabolic panel - 04/29/16 05:06 Serum or plasma sodium measurement (moles/volume) 142 mmol/L 135-145 Serum or plasma potassium measurement (moles/volume) 3.3 mmol/L 3.6-5.0 Serum or plasma chloride measurement (moles/volume) 103 mmol/L 98-107 Carbon dioxide 27 mmol/L 21-32 Serum or plasma anion gap determination (moles/volume) 12 mmol/L 5-14 Serum or plasma urea nitrogen measurement (mass/volume) 18 mg/dL 7-18 Serum or plasma creatinine measurement (mass/volume) 0.65 mg/dL 0.60-1.30 Serum or plasma urea nitrogen/creatinine mass ratio 28 NRG Serum or plasma creatinine measurement with calculation of estimated glomerular filtration rate > NRG Serum or plasma glucose measurement (mass/volume) 84 mg/dL 70-105 Serum or plasma calcium measurement (mass/volume) 8.6 mg/dL 8.5-10.1 Serum or plasma total bilirubin measurement (mass/volume) 0.3 mg/dL 0.1-1.0 Serum or plasma alkaline phosphatase measurement (enzymatic activity/volume) 50 U/L 40-136 Serum or plasma aspartate aminotransferase measurement (enzymatic activity/ volume) 24 U/L 5-34 Serum or plasma alanine aminotransferase measurement (enzymatic activity/volume ) 48 U/L 0-55 Serum or plasma protein measurement (mass/volume) 6.1 g/dL 6.4-8.2 Serum or plasma albumin measurement (mass/volume) 3.8 g/dL 3.2-4.5 Blood manual differential performed detection - 04/29/16 05:06 Blood monocytes/100 leukocytes 8 % NRG Manual blood segmented neutrophils/100 leukocytes 58 % NRG Blood band neutrophils/100 leukocytes 6 % NRG Manual blood lymphocytes/100 leukocytes 24 % NRG Manual eosinophils/100 leukocytes in nose 2 % NRG Manual blood basophils/100 leukocytes 0 % NRG Blood lymphocytes variant/100 leukocytes 2 % NRG Blood anisocytosis detection by light microscopy SLIGHT NRG Blood hypochromia detection by light microscopy SLIGHT NRG Complete blood count (CBC) with automated white blood cell (WBC) differential - 05/16/16 15:15 Blood leukocytes automated count (number/volume) 7.1 10*3/uL 4.3-11.0 Blood erythrocytes automated count (number/volume) 3.89 10*6/uL 4.35-5.85 Venous blood hemoglobin measurement (mass/volume) 11.6 g/dL 11.5-16.0 Blood hematocrit (volume fraction) 36 % 35-52 Automated erythrocyte mean corpuscular volume 93 [foz_us] 80-99 Automated erythrocyte mean corpuscular hemoglobin (mass per erythrocyte) 30 pg 25-34 Automated erythrocyte mean corpuscular hemoglobin concentration measurement ( mass/volume) 32 g/dL 32-36 Automated erythrocyte distribution width ratio 15.8 % 10.0-14.5 Automated blood platelet count (count/volume) 213 10*3/uL 130-400 Automated blood platelet mean volume measurement 10.2 [foz_us] 7.4-10.4 Automated blood neutrophils/100 leukocytes 54 % 42-75 Automated blood lymphocytes/100 leukocytes 31 % 12-44 Blood monocytes/100 leukocytes 11 % 0-12 Automated blood eosinophils/100 leukocytes 4 % 0-10 Automated blood basophils/100 leukocytes 1 % 0-10 Blood neutrophils automated count (number/volume) 3.9 10*3 1.8-7.8 Blood lymphocytes automated count (number/volume) 2.2 10*3 1.0-4.0 Blood monocytes automated count (number/volume) 0.8 10*3 0.0-1.0 Automated eosinophil count 0.3 10*3/uL 0.0-0.3 Automated blood basophil count (count/volume) 0.0 10*3/uL 0.0-0.1 Comprehensive metabolic panel - 05/16/16 15:15 Serum or plasma sodium measurement (moles/volume) 137 mmol/L 135-145 Serum or plasma potassium measurement (moles/volume) 4.0 mmol/L 3.6-5.0 Serum or plasma chloride measurement (moles/volume) 97 mmol/L 98-107 Carbon dioxide 31 mmol/L 21-32 Serum or plasma anion gap determination (moles/volume) 9 mmol/L 5-14 Serum or plasma urea nitrogen measurement (mass/volume) 13 mg/dL 7-18 Serum or plasma creatinine measurement (mass/volume) 0.77 mg/dL 0.60-1.30 Serum or plasma urea nitrogen/creatinine mass ratio 17 NRG Serum or plasma creatinine measurement with calculation of estimated glomerular filtration rate > NRG Serum or plasma glucose measurement (mass/volume) 103 mg/dL 70-105 Serum or plasma calcium measurement (mass/volume) 8.8 mg/dL 8.5-10.1 Serum or plasma total bilirubin measurement (mass/volume) 0.3 mg/dL 0.1-1.0 Serum or plasma alkaline phosphatase measurement (enzymatic activity/volume) 59 U/L 40-136 Serum or plasma aspartate aminotransferase measurement (enzymatic activity/ volume) 31 U/L 5-34 Serum or plasma alanine aminotransferase measurement (enzymatic activity/volume ) 38 U/L 0-55 Serum or plasma protein measurement (mass/volume) 6.4 g/dL 6.4-8.2 Serum or plasma albumin measurement (mass/volume) 3.8 g/dL 3.2-4.5 Lipid 1996 panel - 05/16/16 15:15 Serum or plasma triglyceride measurement (mass/volume) 277 mg/dL <150 Serum or plasma cholesterol measurement (mass/volume) 231 mg/dL < 200 Serum or plasma cholesterol in HDL measurement (mass/volume) 39 mg/ dL 40-60 Cholesterol in LDL [mass/volume] in serum or plasma by direct assay 146 mg/dL 1-129 Serum or plasma cholesterol in VLDL measurement (mass/volume) 55 mg/ dL 5-40 Serum or plasma lithium measurement (moles/volume) - 05/16/16 15:15 BNP level 26.1 pg/mL <100.0 Comprehensive Metabolic Panel - 06/27/16 13:20 Albumin 3.9 g/dL 3.6-5.1 ALP 57 U/L 35-130 ALT 15 U/L 6-45 Anion Gap 16 6-14 AST 15 U/L 2-40 BUN 32 mg/dL 5-25 Calcium 9.0 mg/dL 8.3-10.4 Chloride 95 mmol/L 95-114 CO2 36 mEq/L 22-33 Creat 1.50 mg/dL 0.50-1.50 eGFR 34 mL/min/1.73m2 >59 Globulin 3.3 g/dL 2.3-3.5 Glucose 130 mg/dL 70-110 Osmo 303 280-295 Potassium 4.1 mmol/L 3.5-5.3 Sodium 143 mmol/L 134-148 TBil 0.3 mg/dL 0.2-1.2 TP 7.2 g/dL 6.0-8.3 Comprehensive Metabolic Panel - 07/05/16 11:34 Albumin 4.0 g/dL 3.6-5.1 ALP 53 U/L 35-130 ALT 13 U/L 6-45 Anion Gap 16 6-14 AST 13 U/L 2-40 BUN 34 mg/dL 5-25 Calcium 9.2 mg/dL 8.3-10.4 Chloride 96 mmol/L 95-114 CO2 33 mEq/L 22-33 Creat 1.23 mg/dL 0.50-1.50 eGFR 43 mL/min/1.73m2 >59 Globulin 2.8 g/dL 2.3-3.5 Glucose 120 mg/dL 70-110 Osmo 299 280-295 Potassium 4.0 mmol/L 3.5-5.3 Sodium 141 mmol/L 134-148 TBil 0.3 mg/dL 0.2-1.2 TP 6.8 g/dL 6.0-8.3 Comprehensive Metabolic Panel - 07/13/16 08:51 Albumin 3.8 g/dL 3.6-5.1 ALP 62 U/L 35-130 ALT 18 U/L 6-45 Anion Gap 18 6-14 AST 17 U/L 2-40 BUN 78 mg/dL 5-25 Calcium 9.0 mg/dL 8.3-10.4 Chloride 97 mmol/L 95-114 CO2 32 mEq/L 22-33 Creat 2.23 mg/dL 0.50-1.50 eGFR 22 mL/min/1.73m2 >59 Globulin 2.6 g/dL 2.3-3.5 Glucose 122 mg/dL 70-110 Osmo 316 280-295 Potassium 4.9 mmol/L 3.5-5.3 Sodium 142 mmol/L 134-148 TBil 0.3 mg/dL 0.2-1.2 TP 6.4 g/dL 6.0-8.3 Comprehensive Metabolic Panel - 07/26/16 08:23 Albumin 4.1 g/dL 3.6-5.1 ALP 80 U/L 35-130 ALT 12 U/L 6-45 Anion Gap 14 6-14 AST 19 U/L 2-40 BUN 16 mg/dL 5-25 Calcium 9.2 mg/dL 8.3-10.4 Chloride 101 mmol/L 95-114 CO2 32 mEq/L 22-33 Creat 0.97 mg/dL 0.50-1.50 eGFR 57 mL/min/1.73m2 >59 Globulin 2.6 g/dL 2.3-3.5 Glucose 126 mg/dL 70-110 Osmo 298 280-295 Potassium 4.0 mmol/L 3.5-5.3 Sodium 143 mmol/L 134-148 TBil 0.4 mg/dL 0.2-1.2 TP 6.7 g/dL 6.0-8.3 Comprehensive Metabolic Panel - 10/23/16 09:09 Albumin 4.3 g/dL 3.6-5.1 ALP 74 U/L 35-130 ALT 12 U/L 6-45 Anion Gap 16 6-14 AST 16 U/L 2-40 BUN 51 mg/dL 5-25 Calcium 9.4 mg/dL 8.3-10.4 Chloride 100 mmol/L 95-114 CO2 26 mEq/L 22-33 Creat 1.60 mg/dL 0.50-1.50 eGFR 32 mL/min/1.73m2 >59 Globulin 2.6 g/dL 2.3-3.5 Glucose 115 mg/dL 70-110 Osmo 297 280-295 Potassium 5.2 mmol/L 3.5-5.3 Sodium 137 mmol/L 134-148 TBil 0.3 mg/dL 0.2-1.2 TP 6.9 g/dL 6.0-8.3 Comprehensive Metabolic Panel - 10/31/16 08:07 Albumin 4.3 g/dL 3.6-5.1 ALP 64 U/L 35-130 ALT 7 U/L 6-45 Anion Gap 17 6-14 AST 15 U/L 2-40 BUN 57 mg/dL 5-25 Calcium 9.4 mg/dL 8.3-10.4 Chloride 102 mmol/L 95-114 CO2 28 mEq/L 22-33 Creat 1.63 mg/dL 0.50-1.50 eGFR 31 mL/min/1.73m2 >59 Globulin 2.5 g/dL 2.3-3.5 Glucose 120 mg/dL 70-110 Osmo 309 280-295 Potassium 5.2 mmol/L 3.5-5.3 Sodium 142 mmol/L 134-148 TBil 0.3 mg/dL 0.2-1.2 TP 6.8 g/dL 6.0-8.3 Lipid Panel - 11/21/16 07:46 C/HDL 6.4 3.7-6.7 Cholesterol 232 mg/dL 100-240 HDL 36 mg/dL 30-85 LDL-Calculated 151 mg/dL 0-100 Trig 223 mg/dL 35-160 VLDL 45 mg/dL 0-42 Comprehensive metabolic panel - 01/04/17 13:10 Serum or plasma sodium measurement (moles/volume) 142 mmol/L 135-145 Serum or plasma potassium measurement (moles/volume) 3.6 mmol/L 3.6-5.0 Serum or plasma chloride measurement (moles/volume) 101 mmol/L 98-107 Carbon dioxide 30 mmol/L 21-32 Serum or plasma anion gap determination (moles/volume) 11 mmol/L 5-14 Serum or plasma urea nitrogen measurement (mass/volume) 13 mg/dL 7-18 Serum or plasma creatinine measurement (mass/volume) 0.78 mg/dL 0.60-1.30 Serum or plasma urea nitrogen/creatinine mass ratio 17 NRG Serum or plasma creatinine measurement with calculation of estimated glomerular filtration rate > NRG Serum or plasma glucose measurement (mass/volume) 95 mg/dL 70-105 Serum or plasma calcium measurement (mass/volume) 9.1 mg/dL 8.5-10.1 Serum or plasma total bilirubin measurement (mass/volume) 0.2 mg/dL 0.1-1.0 Serum or plasma alkaline phosphatase measurement (enzymatic activity/volume) 81 U/L 40-136 Serum or plasma aspartate aminotransferase measurement (enzymatic activity/ volume) 23 U/L 5-34 Serum or plasma alanine aminotransferase measurement (enzymatic activity/volume ) 27 U/L 0-55 Serum or plasma protein measurement (mass/volume) 6.5 g/dL 6.4-8.2 Serum or plasma albumin measurement (mass/volume) 3.8 g/dL 3.2-4.5 Comprehensive metabolic panel - 01/23/17 12:44 Serum or plasma sodium measurement (moles/volume) 142 mmol/L 135-145 Serum or plasma potassium measurement (moles/volume) 4.0 mmol/L 3.6-5.0 Serum or plasma chloride measurement (moles/volume) 102 mmol/L 98-107 Carbon dioxide 28 mmol/L 21-32 Serum or plasma anion gap determination (moles/volume) 12 mmol/L 5-14 Serum or plasma urea nitrogen measurement (mass/volume) 13 mg/dL 7-18 Serum or plasma creatinine measurement (mass/volume) 0.70 mg/dL 0.60-1.30 Serum or plasma urea nitrogen/creatinine mass ratio 19 NRG Serum or plasma creatinine measurement with calculation of estimated glomerular filtration rate > NRG Serum or plasma glucose measurement (mass/volume) 88 mg/dL 70-105 Serum or plasma calcium measurement (mass/volume) 8.9 mg/dL 8.5-10.1 Serum or plasma total bilirubin measurement (mass/volume) 0.3 mg/dL 0.1-1.0 Serum or plasma alkaline phosphatase measurement (enzymatic activity/volume) 74 U/L 40-136 Serum or plasma aspartate aminotransferase measurement (enzymatic activity/ volume) 20 U/L 5-34 Serum or plasma alanine aminotransferase measurement (enzymatic activity/volume ) 18 U/L 0-55 Serum or plasma protein measurement (mass/volume) 6.3 g/dL 6.4-8.2 Serum or plasma albumin measurement (mass/volume) 3.6 g/dL 3.2-4.5 Comprehensive Metabolic Panel - 03/14/17 09:42 Albumin 4.0 g/dL 3.6-5.1 ALP 85 U/L 35-130 ALT 14 U/L 6-45 Anion Gap 14 6-14 AST 17 U/L 2-40 BUN 14 mg/dL 5-25 Calcium 9.1 mg/dL 8.3-10.4 Chloride 102 mmol/L 95-114 CO2 32 mEq/L 22-33 Creat 0.73 mg/dL 0.50-1.50 eGFR 79 mL/min/1.73m2 >59 Globulin 2.5 g/dL 2.3-3.5 Glucose 118 mg/dL 70-110 Osmo 299 280-295 Potassium 4.2 mmol/L 3.5-5.3 Sodium 144 mmol/L 134-148 TBil 0.3 mg/dL 0.2-1.2 TP 6.5 g/dL 6.0-8.3 Urine Culture - 03/14/17 09:42 PRELIM CULTURE RESULTS <10,000 Gram Positive Mixed Debra FINAL CULTURE RESULTS <10,000 Gram Positive Mixed Debra Probable Skin Contaminant No Further Workup done MEDIA PLATED Setup at 15:26 on 03/14/2017 CULTURE SOURCE void Encounters ACCT No. Visit Date/Time Discharge Status Pt. Type Provider Facility Loc./Unit Complaint [id number] 11/12/2017 09:46:37 11/12/2017 23:59:59 JESUS MANUEL Outpatient RIO JONH [id number] 10/28/2017 10:09:54 10/28/2017 23:59:59 CLS Outpatient RIO JOHN [id number] 10/22/2017 09:36:38 10/22/2017 23:59:59 CLS Outpatient RIO JOHN [id number] 09/03/2017 10:42:46 09/03/2017 23:59:59 CLS Outpatient RIO JOHN [id number] 08/20/2017 10:27:14 08/20/2017 23:59:59 JESUS MANUEL Outpatient RIO JOHN [id number] 07/31/2017 09:53:22 07/31/2017 23:59:59 CLS Outpatient RIO JOHN [id number] 07/05/2017 11:26:57 07/05/2017 23:59:59 JESUS MANUEL Outpatient RIO JOHN [id number] 05/08/2017 09:40:30 05/08/2017 23:59:59 JESUS MANUEL Outpatient RIO JOHN [id number] 04/15/2017 10:29:01 04/15/2017 23:59:59 JESUS MANUEL Outpatient RIO JOHN [id number] 04/01/2017 09:55:14 04/01/2017 23:59:59 CLS Outpatient RIO JOHN [id number] 03/25/2017 10:21:41 03/25/2017 23:59:59 CLS Outpatient ALVARORIO SPEAR [id number] 03/12/2017 10:14:52 03/12/2017 23:59:59 CLS Outpatient RIO JOHN [id number] 03/05/2017 11:23:58 03/05/2017 23:59:59 CLS Outpatient RIO OJHN [id number] 03/04/2017 16:16:10 03/04/2017 23:59:59 CLS Outpatient Mukul Lopez [id number] 02/26/2017 11:31:04 02/26/2017 23:59:59 CLS Outpatient RIO JOHN [id number] 02/14/2017 10:37:46 02/14/2017 23:59:59 CLS Outpatient RIO JOHN [id number] 02/01/2017 10:53:51 02/01/2017 23:59:59 CLS Outpatient RIO JOHN [id number] 01/28/2017 10:28:44 01/28/2017 23:59:59 CLS Outpatient RIO JOHN [id number] 01/21/2017 10:37:31 01/21/2017 23:59:59 CLS Outpatient RIO JOHN [id number] 01/09/2017 10:13:36 01/09/2017 23:59:59 CLS Outpatient RIO JOHN [id number] 01/03/2017 10:44:49 01/03/2017 23:59:59 CLS Outpatient RIO JOHN [id number] 12/28/2016 10:32:41 12/28/2016 23:59:59 CLS Outpatient RIO JOHN [id number] 12/25/2016 10:08:41 12/25/2016 23:59:59 CLS Outpatient RIO JOHN [id number] 12/17/2016 12:38:01 12/17/2016 23:59:59 CLS Outpatient RIO JOHN Mukul [id number] 12/05/2016 08:42:50 12/05/2016 23:59:59 CLS Outpatient ALVARORIO SPEAR [id number] 11/30/2016 08:16:24 11/30/2016 23:59:59 CLS Outpatient RIO JOHN Mukul [id number] 11/16/2016 11:00:58 11/16/2016 23:59:59 CLS Outpatient ALVARORIO [id number] 11/01/2016 09:18:45 11/01/2016 23:59:59 CLS Outpatient ALVARO, RIO Gilman [id number] 10/25/2016 11:29:11 10/25/2016 23:59:59 CLS Outpatient ALVARO, RIO Gilman [id number] 10/18/2016 10:19:45 10/18/2016 23:59:59 CLS Outpatient ALVARO, RIO Gilman [id number] 10/04/2016 10:40:18 10/04/2016 23:59:59 CLS Outpatient ALVARO, RIO Gilman [id number] 09/07/2016 09:47:39 09/07/2016 23:59:59 CLS Outpatient ALVARO, RIO Gilman [id number] 09/03/2016 10:25:52 09/03/2016 23:59:59 CLS Outpatient ALVARO, RIO Gilman [id number] 08/20/2016 11:14:17 08/20/2016 23:59:59 CLS Outpatient ALVARO, RIO Gilman [id number] 08/15/2016 10:01:55 08/15/2016 23:59:59 CLS Outpatient ALVARO, RIO Gilman [id number] 08/09/2016 10:42:54 08/09/2016 23:59:59 CLS Outpatient ALVARO, RIO Gilman [id number] 07/27/2016 10:29:54 07/27/2016 23:59:59 CLS Outpatient ALVARO, RIO Gilman [id number] 07/18/2016 10:47:41 07/18/2016 23:59:59 CLS Outpatient ALVARO, RIO Gilman [id number] 07/16/2016 11:28:29 07/16/2016 23:59:59 CLS Outpatient ALVARO, RIO Gilman [id number] 07/06/2016 11:09:23 07/06/2016 23:59:59 CLS Outpatient ALVARO, RIO Gilman [id number] 06/29/2016 11:04:23 06/29/2016 23:59:59 CLS Outpatient ALVARO, RIO Gilman [id number] 06/26/2016 11:06:37 06/26/2016 23:59:59 CLS Outpatient ALVARO, RIO Gilman [id number] 06/15/2016 15:59:58 06/15/2016 23:59:59 CLS Outpatient Mukul Lopez [id number] 06/04/2016 07:45:22 06/04/2016 23:59:59 CLS Outpatient ALVARORIO SPEAR [id number] 05/31/2016 10:47:42 05/31/2016 23:59:59 CLS Outpatient ALVARO, RIO Gilman [id number] 05/14/2016 10:44:12 05/14/2016 23:59:59 CLS Outpatient ALVARO, RIO Gilman [id number] 04/17/2016 10:55:27 04/17/2016 23:59:59 CLS Outpatient ALVRAORIO SPEAR [id number] 04/02/2016 12:32:04 04/02/2016 23:59:59 CLS Outpatient Jhony Phelps [id number] 04/02/2016 10:27:26 04/02/2016 23:59:59 CLS Outpatient RIO JOHN [id number] 03/22/2016 10:10:07 03/22/2016 23:59:59 CLS Outpatient ALVARO, RIO Gilman [id number] 12/15/2015 10:58:44 12/15/2015 23:59:59 CLS Outpatient ALVARORIO SPEAR [id number] 07/05/2015 14:03:00 07/05/2015 23:59:59 CLS Outpatient ALVARO, RIO Gilman [id number] 06/09/2015 10:22:26 06/09/2015 23:59:59 CLS Outpatient ALVARORIO SPEAR [id number] 05/12/2015 10:51:17 05/12/2015 23:59:59 CLS Outpatient ALVARO, RIO Gilman [id number] 03/25/2015 10:47:56 03/25/2015 23:59:59 CLS Outpatient ALVARORIO SPEAR [id number] 01/28/2015 10:33:04 01/28/2015 23:59:59 CLS Outpatient ALVARORIO Mukul [id number] 01/24/2015 11:07:00 01/24/2015 23:59:59 CLS Outpatient ALVARO, RIO Mukul [id number] 01/03/2015 11:08:28 01/03/2015 23:59:59 CLS Outpatient ALVARO, RIO Mukul [id number] 12/13/2014 22:16:02 12/13/2014 23:59:59 CLS Outpatient ALVARORIO SPEAR Mukul [id number] 08/26/2014 07:52:40 08/26/2014 23:59:59 CLS Outpatient ALVARORIO Mukul [id number] 08/13/2014 10:43:05 08/13/2014 23:59:59 CLS Outpatient ALVARO, RIO Gilman [id number] 05/14/2014 10:01:42 05/14/2014 23:59:59 CLS Outpatient ALVARO, RIO Gilman [id number] 05/11/2014 10:45:55 05/11/2014 23:59:59 CLS Outpatient ALVARORIO SPEAR [id number] 04/21/2014 10:40:23 04/21/2014 23:59:59 CLS Outpatient ALVARORIO SPEAR [id number] 02/18/2014 09:44:24 02/18/2014 23:59:59 CLS Outpatient ALVARO, RIO Gilman [id number] 12/01/2013 11:27:11 12/01/2013 23:59:59 CLS Outpatient ALVARO, RIO Mukul [id number] 11/09/2013 11:07:31 11/09/2013 23:59:59 CLS Outpatient ALVARORIO SPEAR Mukul [id number] 08/27/2013 11:03:09 08/27/2013 23:59:59 CLS Outpatient ALVARORIO SPEAR Mukul [id number] 06/19/2013 10:38:12 06/19/2013 23:59:59 CLS Outpatient ALVARORIO Mukul [id number] 06/02/2013 08:04:51 06/02/2013 23:59:59 CLS Outpatient ALVARORIO SPEAR Mukul [id number] 12/10/2016 23:00:00 12/10/2016 23:59:59 DIS Outpatient TORITO ANDREW [facility] [id number] 02/22/2017 09:46:00 04/25/2017 10:45:00 DIS Outpatient Rio John [id number] 03/14/2017 09:27:00 03/14/2017 23:59:00 DIS Outpatient Alvaro Rio [id number] 11/07/2016 09:30:00 12/31/2016 14:40:00 DIS Outpatient Humble Mckinley [id number] 11/21/2016 07:46:00 11/21/2016 23:59:00 DIS Outpatient Rio John [id number] 11/19/2016 09:34:00 11/19/2016 23:59:00 DIS Outpatient Rio John [id number] 10/31/2016 08:04:00 10/31/2016 23:59:00 DIS Outpatient Rio John [id number] 10/23/2016 08:27:00 10/23/2016 23:59:00 DIS Outpatient Rio John [id number] 07/26/2016 08:19:00 07/26/2016 23:59:00 DIS Outpatient Rio John [id number] 07/13/2016 08:47:00 07/13/2016 23:59:00 DIS Outpatient Rio John [id number] 07/05/2016 11:19:00 07/05/2016 23:59:00 DIS Outpatient Rio John [id number] 06/27/2016 13:05:00 06/27/2016 23:59:00 DIS Outpatient Rio John [id number] 04/20/2016 11:10:00 04/21/2016 11:35:00 DIS Inpatient [facility] ICU [id number] 04/20/2016 11:38:30 Document Registration [id number] 01/23/2017 12:42:00 01/23/2017 23:59:59 CLS Preadmit SVEN VIGIL MD [facility] RENAL FAILURE [id number] 01/04/2017 15:54:00 01/04/2017 23:59:59 CLS Outpatient SVEN VIGIL MD [facility] DM [id number] 07/04/2016 09:07:00 07/04/2016 23:59:59 CLS Outpatient NICHELLE CRISTOBAL APRN [facility] RT HYPOXEMIA REQUIRING SUPPLEMENTAL OXYGEN [id number] 06/15/2016 10:43:00 06/15/2016 23:59:59 CLS Outpatient NICHELLE CRISTOBAL APRN [facility] RAD PNEUMONIA [id number] 05/16/2016 15:15:00 05/16/2016 23:59:59 CLS Outpatient SVEN VIGIL MD [facility] HYPERLIPIDEMIA, CHF, DIVERTICULITIS [id number] 04/24/2016 09:12:00 04/30/2016 12:13:00 DIS Inpatient HONEY GORE [address] COPD [id number] 04/21/2016 12:25:00 04/24/2016 09:12:00 DIS Inpatient NGUYEN OLSON DO [facility] 4TH PNEUMONIA [id number] 11/08/2015 08:44:00 11/08/2015 10:33:00 DIS Emergency KLEVER MEANS MD [facility] ER FALL/LEFT FOOT PAIN [id number] 02/11/2014 09:31:00 02/11/2014 23:59:59 CLS Outpatient LISA YATES DO [facility] RAD ADHESIVE CAPSULITIS [id number] 06/21/2011 09:42:00 Document Registration [id number] 04/02/2011 09:03:00 Document Registration [id number] 03/20/2011 09:56:00 Document Registration
[2018-01-17] MEDS: NS IV 500 ML 500 ML IV SCH ×2 (15:09→15:13)
[2018-01-29] MEDS ORDERED: AMLO5TAB7 PO (14:25)
[2018-01-29] MEDS ORDERED: ALBU2.5V4 INH (14:25)
[2018-01-29] MEDS ORDERED: ALPR0.5T7 PO (14:25)
[2018-01-29] MEDS ORDERED: FLUT16SP22 NSEACH (14:25)
[2018-01-29] MEDS ORDERED: BUDE10.2 INH (14:25)
[2018-01-29] MEDS ORDERED: LORA10TA7 PO (14:27)
[2018-01-29] MEDS ORDERED: CALC-250 PO (14:27)
== END 2018-01-13 13:28 | disposition home or self-care (01) ==
LOC: EDUNIT# 10:30 → ER 10:31
DX: K57.30 Diverticulosis of large intestine without perforation or abscess without bleeding (principal); I10 Essential (primary) hypertension; K21.9 Gastro-esophageal reflux disease without esophagitis; Z88.8 Allergy status to other drugs, medicaments and biological substances; Z79.52 Long term (current) use of systemic steroids; Z79.51 Long term (current) use of inhaled steroids; Z87.891 Personal history of nicotine dependence; Z87.448 Personal history of other diseases of urinary system; Z87.01 Personal history of pneumonia (recurrent)
CPT/HCPCS: 36415; 74177; 80053; 81000; 82150; 83690; 85025

== ENCOUNTER 2018-01-29 14:51 | Outpatient (CLI) | payer MEDICARE, MEDICAID ==
[~2018-01-29] VITALS: Ht 162.6 cm; Wt 101.2 kg
[~2018-01-29 14:51] MED LIST changes: +ALBU2.5V4 INH; +ALPR0.5T7 PO; +BUDE10.2 INH; +CALC-250 PO; +FLUT16SP22 NSEACH
== END 2018-01-29 15:17 | disposition home or self-care (01) ==
LOC: PREOP 14:51
PROVIDERS: ATTEND Surgery
DX: Z01.818 Encounter for other preprocedural examination (principal)

== ENCOUNTER 2018-02-03 06:58 | Day surgery (SDC) | payer MEDICARE, MEDICAID ==
[~2018-02-03] VITALS: Ht 162.6 cm; Wt 101.2 kg
--- OUTSIDE RECORDS SUMMARY | 2018-02-03 07:08 | XMS REPORT ---
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 Phone ELOY AHUMADA PCP ELOY [...] per day Xanax 0.5 mg oral tablet 01/02/2018 take [...] oral tablets,dose pack 11/01/2017 take as directed hyoscyamine sulfate 0.125 mg oral tablet 12/16/2017 01/15/2018 take 1 tablet ( 0.125 mg) by oral route 3 times per day for 30 days Cipro 500 mg oral tablet 12/17/2017 12/27/2017 [...] HC BMI BSA BMI Percentile O2 Sat(%) 01/20/2018 1:41:00 PM 122 mmHg 64 mmHg 96 bpm 16 rpm 98.4 F 220 lbs 98 % 12/31/2017 8:12:00 AM 130 mmHg 70 mmHg [...] Reviewed 01/24/2015 12:00 AM Toradol 60 Mg [facility]#1276-1968-99 Reviewed 03/25/2015 12:00 AM Toradol 60 Mg [facility]#6530-2837-77 Reviewed 04/06/2015 12:00 AM MRI NECK SPINE W/O DYE Reviewed 05/27/2015 12:00 AM Decadron, Per 1 Mg [facility]# [address]-14 Reviewed 05/27/2015 12:00 AM Depo-Medrol, Per 80 Mg [facility]#6787-4817-10 Reviewed 05/27/2015 12:00 AM Rocephin 1 gram [facility]#4135-4496-72 Reviewed 02/26/2011 12:00 AM THER/PROPH/DIAG INJ SC/IM Reviewed 02/26/2011 12:00 AM Decadron Inj.1mg-([facility]) [facility] #[id number] Reviewed 02/26/2011 12:00 AM Depo-Medrol 80 Mg Im/[facility] [id number] Reviewed 12/15/2015 12:00 AM Rocephin 1 gram [facility]#9714-1754-39 Reviewed 06/03/2016 12:00 AM THERAPEUTIC PROPHYLACTIC/DX INJECTION SUBQ/IM Reviewed 06/03/2016 12:00 AM Decadron 8mg Injection, [facility] Medicare Reviewed 06/27/2016 12:00 AM COMPREHEN METABOLIC PANEL Returned 06/27/2016 12:00 AM URINALYSIS AUTO W/SCOPE Returned 07/05/2016 12:00 AM COMPREHEN METABOLIC PANEL Reviewed 07/12/2016 12:00 AM COMPREHEN METABOLIC PANEL Reviewed 07/23/2016 12:00 AM COMPREHEN METABOLIC PANEL Reviewed 09/07/2016 12:00 AM THERAPEUTIC PROPHYLACTIC/DX INJECTION SUBQ/IM Reviewed 09/07/2016 12:00 AM Rocephin 1 gram Injection, [facility] Medicare Reviewed 09/03/2016 12:00 AM THERAPEUTIC PROPHYLACTIC/DX INJECTION SUBQ/IM Reviewed 09/03/2016 12:00 AM Rocephin 1 gram Injection, [facility] Medicare Reviewed 10/22/2016 12:00 AM THERAPEUTIC PROPHYLACTIC/DX INJECTION SUBQ/IM Reviewed 10/18/2016 12:00 AM Lasix, Up to 20 Mg [facility]#6534-8795-12 [facility] Medicare Reviewed 11/16/2016 12:00 AM ASSAY OF NATRIURETIC PEPTIDE Reviewed 12/03/2016 12:00 AM THERAPEUTIC PROPHYLACTIC/DX INJECTION SUBQ/IM Reviewed 12/03/2016 12:00 AM Decadron 8mg Injection, [facility] Medicare Reviewed 11/30/2016 12:00 AM THERAPEUTIC PROPHYLACTIC/DX INJECTION SUBQ/IM Reviewed 11/30/2016 12:00 AM Decadron 8mg Injection, [facility] Medicare Reviewed 11/30/2016 12:00 AM Rocephin 1 gram Injection, [facility] Medicare Reviewed 11/30/2016 12:00 AM AIRWAY INHALATION TREATMENT Reviewed 01/09/2017 12:00 AM THERAPEUTIC PROPHYLACTIC/DX INJECTION SUBQ/IM Reviewed 01/09/2017 12:00 AM Decadron 8mg Injection Reviewed 01/28/2017 12:00 AM DRAIN/INJ JOINT/BURSA W/O US Reviewed 02/01/2017 12:00 AM DRAIN/INJ JOINT/BURSA W/O US Reviewed 03/11/2012 12:00 AM THER/PROPH/DIAG INJ SC/IM Reviewed 03/11/2012 12:00 AM Decadron, Per 1 Mg [facility]# [address]-89 Reviewed 03/11/2012 12:00 AM Depo-Medrol, Per 80 Mg [facility]#9692-5180-44 Reviewed 03/11/2012 12:00 AM Rocephin 1 gram [facility]#9190-4713-38 Reviewed 04/11/2012 12:00 AM Flu Injection 3 Years And Above [facility]# [address]-54 [facility] Reviewed 05/08/2017 12:00 AM THERAPEUTIC PROPHYLACTIC/DX INJECTION [...] 10/27/2012 12:00 AM Decadron, Per 1 Mg [facility]# [address]-89 Reviewed 10/27/2012 12:00 AM Depo-Medrol, Per 80 Mg [facility]#3069-4644-76 Reviewed 12/26/2012 12:00 AM COMPLETE CBC W/AUTO DIFF WBC Reviewed 12/26/2012 12:00 AM COMPREHEN METABOLIC PANEL Reviewed 12/26/2012 12:00 AM LIPID PANEL Reviewed 12/26/2012 12:00 AM ASSAY THYROID STIM HORMONE Reviewed 08/27/2013 12:00 AM THER/PROPH/DIAG INJ SC/IM Reviewed 08/27/2013 12:00 AM Toradol 60 Mg [facility]#4349-5104-37 Reviewed 12/01/2013 12:00 AM THER/PROPH/DIAG INJ SC/IM Reviewed 12/01/2013 12:00 AM Toradol 60 Mg [facility]#0567-9446-85 Reviewed 07/17/2010 12:00 AM THER/PROPH/DIAG INJ SC/IM Reviewed 07/17/2010 12:00 AM Decadron Inj.6mg-([facility]) [facility] #[id number] Reviewed 07/17/2010 12:00 AM Depo-Medrol 120 Mg Im/[facility] [id number] Reviewed 04/21/2014 12:00 AM IMMUNIZATION ADMIN Reviewed 04/21/2014 12:00 AM THER/PROPH/DIAG INJ SC/IM Reviewed 04/21/2014 12:00 AM Decadron, Per 1 Mg [facility]# [address]-22 Reviewed 04/21/2014 12:00 AM Depo-Medrol, Per 80 Mg [facility]#3144-5129-27 Reviewed 05/14/2014 12:00 AM THER/PROPH/DIAG INJ SC/IM Reviewed 05/14/2014 12:00 AM Decadron, Per 1 Mg [facility]# [address]-11 Reviewed 05/14/2014 12:00 AM Depo-Medrol, Per 80 Mg [facility]#1059-1563-36 Reviewed 07/05/2014 12:00 AM THER/PROPH/DIAG INJ SC/IM Reviewed 07/05/2014 12:00 AM Decadron, Per 1 Mg [facility]# [address]-18 Reviewed 07/05/2014 12:00 AM Rocephin 1 gram [facility]#1908-3519-02 Reviewed Results Summary Date and Description Results [...] May 31 2016 11:12AM Abnormal kidney function Fe 22 2017 11:47AM Anxiety about health Jun 29 2016 11:22AM Dorsalgia, unspecified b 2016 11:22AM Other chronic pain Feb 2016 [...] chronic kidney disease Dec 31 2017 8:13AM Encounter for examination following treatment at hospital Jan 20 2018 1:42PM LUQ abdominal pain Jan 20 2018 1:42PM Constipation, unspecified constipation type Jan 20 2018 1:42PM Abdominal bloating Jan 20 2018 1:42PM Shortness of breath on exertion Jan 20 2018 1:42PM Hypoxemia Jan 20 2018 1:42PM Dependence on supplemental oxygen Jan 20 2018 1:42PM Anxiety about health Jan 20 2018 1:42PM Fear of Jan 20 2018 1:42PM Chronic obstructive pulmonary disease, unspecified COPD type Jan 20 2018 1: 42PM Payers Insurance Name Company Name Plan Name Plan Number Policy Number Policy Group Number Start Date Medicare RHC Medicare RHC [id number] N/A [place] [employer] [facility] RH [id number] N/A Medicare Part A Medicare - Lab/Xray [id number] N/A Medicare RHC Medicare RHC [id number] N/A Medicare Part B Medicare Of [place] [id number] N/A [place] [employer] [place] [employer] [id number] N/A Medicare Part A Medicare Part A [id number] N/A History of Encounters Visit Date Visit Type Provider 01/20/2018 Office visit ELOY BRITT 12/31/2017 Office visit ELOY BRITT 12/12/2017 Office visit ELOY BRITT 12/02/2017 Office visit ELOY BRITT 11/12/2017 Office visit ELOY AHUMADA PA 10/28/2017 [...] 12/17/2016 Office visit ELOY AHUMADA PA 12/10/2016 [facility] Dwayne Lopez MD 12/05/2016 Office visit ELOY [...] PA 03/22/2016 Hospital Jhony Phelps MD 03/22/2016 [facility] Mukul Lopez MD 12/15/2015 [...]
[2018-02-03] MEDS ORDERED: LACTATED RINGERS 1,000 ML IV ONE (07:26)
[2018-02-03] MEDS ORDERED: LACTATED RINGERS 1,000 ML IV STA (08:05)
[2018-02-03 08:10] VITALS: BP 145/65
[2018-02-03] MEDS ORDERED: proPOfol 200 MG/20 ML (DIPRIVAN) VIAL IV ONE (08:23)
[2018-02-03] MEDS ORDERED: MIDAZOLAM 2 MG/2 ML (VERSED) VIAL ONE ×2 (08:23→08:44)
[2018-02-03] MEDS ORDERED: fentaNYL INJECTION 100 MCG/2 ML AMP ONE (08:45)
--- NOTE | 2018-02-03 09:15 | History & Physicial ---
History of Present Illness History of Present Illness Reason for visit/HPI to undergo surveillance colonoscopy. She has a personal history of polyps from an examination in 2010 and a sigmoid stricture requiring balloon dilatation. Currently, she reports pain along the left lower quadrant of the abdomen and decreased caliber of the stools. Date of Admission 02/03/18 Date Seen by a Provider: Feb 03, 2018 Time Seen by a Provider: 09:12 I consulted on this patient on 02/03/18 09:10 Attending Physician Dwayne Merchant MD Admitting Physician Geovanni Alejandra MD Consult Allergies and Home Medications Allergies Coded Allergies: pseudoephedrine (Unverified Allergy, Unknown, 04/21/16) meperidine HCl (Unverified Adverse Reaction, Unknown, VOMITING, 04/21/16) Home Medications Albuterol Sulfate 8.5 Gm Hfa.aer.ad, 1-2 PUFF IH Q6H PRN for SHORTNESS OF BREATH , (Reported) Albuterol Sulfate 2.5 Mg/3 Ml Vial.neb, 2.5 MG INH QID PRN for SHORTNESS OF BREATH, (Reported) Alprazolam 0.5 Mg Tablet, 0.5 MG PO TID PRN for ANXIETY, (Reported) Amlodipine Besylate 5 Mg Tablet, 5 MG PO DAILY, (Reported) Budesonide/Formoterol Fumarate 10.2 Gm Hfa.aer.ad, 2 PUFF INH BID, (Reported) Cholecalciferol 5,000 Unit Capsule, 5,000 UNIT PO DAILY, (Reported) Dexlansoprazole 60 Mg Praveen.bp, 60 MG PO DAILY, (Reported) Fluticasone Propionate 16 Gm [place].susp, 1 SPRAY NSEACH BID, (Reported) Loratadine 10 Mg Tablet, 10 MG PO DAILY, (Reported) Patient Home Medication List Home Medication List Reviewed: Yes Past Feagkdb-Wgdoud-Eqgknj Hx Patient Social History Marrital Status: Employed/Student: retired Alcohol Use: Denies Use Recreational Drug Use: No Smoking Status: Former Smoker Former Smoker, Quit: Apr 21, 2014 Type Used: Cigarettes Recent Foreign Travel: No Contact w/other who traveled: No Recent Hopitalizations: No Immunizations Up To Date Tetanus Booster (TDap): More than 5yrs Date of Pneumonia Vaccine: Apr 11, 2016 Date of Influenza Vaccine: Apr 11, 2016 Seasonal Allergies Seasonal Allergies: Yes Surgeries Yes (ovarian cyst) Appendectomy, Gallbladder Respiratory Yes COPD, Pneumonia Cardiovascular No Hypertension Neurological Yes (SPINAL STENOSIS) Reproductive System Hx Reproductive Disorders: No Sexually Transmitted Disease: No HIV/AIDS: No Gastrointestinal Yes (LUQ tender to palpation, BSx4) Gastroesophageal Reflux Musculoskeletal No Arthritis Endocrine History of Endocrine Disorders: No HEENT History of HEENT Disorders: Yes HEENT Disorders: Cataract Cancer No Psychosocial History of Psychiatric Problem: No Blood Transfusions History of Blood Disorders: No Review of Systems Constitutional: no symptoms reported EENTM: no symptoms reported Respiratory: no symptoms reported, cough Cardiovascular: no symptoms reported Gastrointestinal: LLQ, abdominal pain Genitourinary: no symptoms reported Musculoskeletal: no symptoms reported Skin: no symptoms reported Psychiatric/Neurological: No Symptoms Reported Physical Exam Vital Signs Vital Signs - First Documented 02/03/18 08:10 Temp 98.9 Pulse 88 Resp 24 B/P (MAP) 145/65 (91) Pulse Ox 95 O2 Delivery Nasal Cannula O2 Flow Rate 3.00 Capillary Refill : Height, Weight, BMI Height: 5'4.00" Weight: 223lbs. 0.0oz. 101.032757ob; 38.3 BMI Method:Stated General Appearance: No Apparent Distress Neck: Normal Inspection Respiratory: Lungs Clear Cardiovascular: Regular Rate, Rhythm Gastrointestinal: Non Tender, Soft Rectal: Deferred Neurologic/Psychiatric: Alert, Oriented x3 Skin: Warm/Dry Assessment/Plan Assessment and Plan lady with a personal history of polyps in the sigmoid stricture. Left lower quadrant abdominal pain. Colonoscopy discussed. Iatrogenic perforation, post polypectomy bleeding etc. reviewed thoroughly. Seems to be in agreement to proceed Admission Diagnosis Admission Status: Other (Outpt Proc) DWAYNE MERCHANT MD Feb 03, 2018 09:15
[2018-02-03 09:20] VITALS: BP 111/52
--- NOTE | 2018-02-03 09:20 | Endo Procedure Record ---
Endo Procedure Report Date of Procedure Last Colonoscopy: Yes Feb 03, 2018 Surgeon (s) DWAYNE MERCHANT MD Post Procedure/Op Diagnosis sigmoid diverticulosis. 1 mm polyp at the distal sigmoid colon, 2, adjacent to each other 2 mm polyp at the distal transverse colon Procedure Performed colonoscopy to cecum Snare polypectomy of transverse colon polyp Hot biopsy polypectomy 2sigmoid colon Description of Procedure Anesthesia Type: Conscious Sedation Specimen(s) collected/removed polyps Description of the Procedure indication for procedure: This lady, with a history of colon polyps came in for surveillance colonoscopy. In addition, she reported pain along the left lower quadrant of the abdomen as well. Informed consent was obtained after reviewing the procedure in detail. Description of the procedure: She was placed in left lateral decubitus position and her vital signs are monitored. Conscious sedation was achieved using propofol infusion by our anesthesiologist. Examination of the perianal area revealed some excoriation of the perianal skin and external hemorrhoids. Digital examination was otherwise unremarkable. The colonoscope was then introduced into the rectum and advanced to the cecum. The quality of bowel preparation was rather sub-optimal. I was however able to irrigate the mucosa and complete the examination. The scope was then withdrawn slowly and the mucosa examined in a systematic fashion. Findings: 1. 2 polyps, adjacent to each other, and millimeter each, at the distal sigmoid colon. These were excised with hot biopsy forceps and sent as one specimen for histological examination. 2. Sigmoid diverticulosis without any stricture 3. 2 mm pudenda later polyp at the distal transverse colon, that was snared and retrieved. She tolerated the procedure well and was taken back to the nursing area in a stable condition. Impression: Personal history of polyps. Polyps excised from the transverse colon and the sigmoid. Recommend repeating examination in 5 years. DWAYNE MERCHANT MD Feb 03, 2018 09:20
--- NOTE | 2018-02-03 09:21 | Discharge Inst-Simple/Standard ---
Discharge Inst-Standard Discharge Medications New, Converted or Re-Newed RX: Other Patient Instructions/Follow Up Plan of Care/Instructions/FU: repeat colonoscopy in 5 years Activity as Tolerated: Yes Discharge Diet: No Restrictions DWAYNE MERCHANT MD Feb 03, 2018 09:21
[2018-02-03 09:50] VITALS: BP 141/71
--- OUTSIDE RECORDS SUMMARY | 2018-02-03 09:58 | XMS REPORT | Continuity of Care Document ---
Author Author [facility] Organization [facility] Address Unknown Phone Unavailable Allergies Active Description Code Type Severity Reaction Onset Reported/Identified Relationship to Patient Clinical Status Yes DEMEROL DEMEROL SEVERE Yes DEMEROL SEVERE DERMATOLOGICAL - LUI Yes meperidine HCl [id number] Drug Allergy Unknown VOMITING 04/21/2016 Yes pseudoephedrine [id number] Drug Allergy Unknown N/A 04/21/2016 Medications Medication [...] OF INTRINSIC MSL/TND AT ANK/FT LE 11/08/2015 KLVEER MEANS MD Ot X58.XXXA EXPOSURE TO OTHER SPECIFIED FACTORS, INI 11/08/2015 KLEVER MEANS MD Ot Y99.8 OTHER EXTERNAL CAUSE STATUS [...] UNSP, W/O PERF O 06/18/2016 NICHELLE CRISTOBAL [employer] DEVELOPER Ot F17.201 NICOTINE DEPENDENCE, UNSPECIFIED, IN REM 06/18/2016 NICHELLE CRISTOBAL [employer]MS DEVELOPER Ot J18.9 PNEUMONIA, UNSPECIFIED ORGANISM 06/18/2016 ELIJAH CRISTOBALINE Robert [employer]MS DEVELOPER Ot 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 06/19/2016 ELIJAH CRISTOBALINE E [employer]MS DEVELOPER Ot F17.201 NICOTINE DEPENDENCE, UNSPECIFIED, IN REM 06/19/2016 NICHELLE CRISTOBAL [employer] HRMS DEVELOPER Ot J18.9 PNEUMONIA, UNSPECIFIED ORGANISM 06/19/2016 SUSUELIJAHNICHELLE E [employer] HRMS DEVELOPER Ot 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, [facility] 06/20/2016 ELIJAH CRISTOBALINE E [employer] HRMS DEVELOPER Ot F17.201 NICOTINE DEPENDENCE, UNSPECIFIED, IN REM 06/20/2016 NICHELLE CRISTOBAL [employer] HRMS DEVELOPER Ot J18.9 PNEUMONIA, UNSPECIFIED ORGANISM 06/20/2016 ELIJAH CRISTOBALINE Robert [employer]MS DEVELOPER Ot 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, [facility] 07/05/2016 NICHELLE CRISTOBAL [employer]MS DEVELOPER Ot J45.909 UNSPECIFIED ASTHMA, UNCOMPLICATED 07/05/2016 ELIJAH CRISTOBALINE Robert [employer]MS DEVELOPER Ot 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, [facility] W [facility] 07/06/2016 ELIJAH CRISTOBALINE Robert [employer] HRMS DEVELOPER Ot J45.909 UNSPECIFIED ASTHMA, UNCOMPLICATED 07/06/2016 ELIJAH CRISTOBALINE E [employer]MS DEVELOPER Ot 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, [facility] 07/09/2016 NICHELLE CRISTOBAL APRN Ot F17.201 NICOTINE DEPENDENCE, UNSPECIFIED, IN REM 07/09/2016 NICHELLE CRISTOBAL [employer]MS DEVELOPER Ot J18.9 PNEUMONIA, UNSPECIFIED ORGANISM 07/09/2016 NICHELLE CRISTOBAL [employer] HRMS DEVELOPER Ot 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, [facility]SP W HYPOX 08/02/2016 NICHELLE CRISTOBAL [employer] HRMS DEVELOPER Ot J45.909 UNSPECIFIED ASTHMA, UNCOMPLICATED 08/02/2016 NICHELLE CRISTOBAL [employer]MS DEVELOPER Ot 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, [facility]SP W HYPOX 08/10/2016 NICHELLE CRISTOBAL [employer] HRMS DEVELOPER Ot J45.909 UNSPECIFIED ASTHMA, UNCOMPLICATED 08/10/2016 NICHELLE CRISTOBAL APRN Ot 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, [...] Rio John 728.87 MUSCLE WEAKNESS (GENERALIZED) 04/25/2017 Rio John M62.81 MUSCLE WEAKNESS (GENERALIZED) 01/13/2018 LISA YATES DO Ot 716.91 ARTHROPATHY NOS-SHLDER 01/13/2018 LISA YATES DO Ot 726.0 ADHESIVE CAPSULIT SHLDER 01/13/2018 SVEN VIGIL MD, Ot E78.5 HYPERLIPIDEMIA, UNSPECIFIED 01/13/2018 SVEN VIGIL MD, Ot I50.9 HEART FAILURE, UNSPECIFIED 01/13/2018 SVEN VIGIL MD, Ot K57.92 DVTRCLI OF INTEST, PART UNSP, W/O PERF O 01/13/2018 NICHELLE CRISTOBAL APRN Ot J45.909 UNSPECIFIED ASTHMA, UNCOMPLICATED 01/13/2018 NICHELLE CRISTOBAL [employer] DEVELOPER Ot 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, UNSP W HYPOX 01/13/2018 NICHELLE CRISTOBAL [employer] HRMS DEVELOPER Ot F17.201 NICOTINE DEPENDENCE, UNSPECIFIED, IN REM 01/13/2018 NICHELLE CRISTOBAL [employer] HRMS DEVELOPER Ot J18.9 PNEUMONIA, UNSPECIFIED ORGANISM 01/13/2018 NICHELLE CRISTOBAL [employer]MS DEVELOPER Ot 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, UNSP W HYPOX 01/13/2018 MUSA DEAN, SVEN Jones Ot E11.9 TYPE 2 DIABETES MELLITUS WITHOUT COMPLIC 01/15/2018 BERNOT, ANTOINE Ot I10 ESSENTIAL (PRIMARY) HYPERTENSION 01/15/2018 BERNOT, ANTOINE Ot K21.9 GASTRO-ESOPHAGEAL REFLUX DISEASE WITHOUT 01/15/2018 BERNOT, ANTOINE Ot K57.30 DVRTCLOS OF LG INT W/O PERFORATION OR AB 01/15/2018 BERNOT, ANTOINE Ot R10.32 LEFT LOWER QUADRANT PAIN 01/15/2018 BERNOT, ANTOINE Ot Z79.51 CODE NUMBER STAMPER (CURRENT) USE OF INHALED STERO 01/15/2018 BERNOT, ANTOINE Ot Z79.52 CODE NUMBER STAMPER (CURRENT) USE OF SYSTEMIC STER 01/15/2018 BERNOT, ANTOINE Ot Z87.01 PERSONAL HISTORY OF PNEUMONIA (RECURRENT 01/15/2018 BERNOT, ANTOINE Ot Z87.448 PERSONAL HISTORY OF OTHER DISEASES OF UR 01/15/2018 BERNOT, ANTOINE Ot Z87.891 PERSONAL HISTORY OF NICOTINE DEPENDENCE 01/15/2018 BERNFARHAD ANTOINE Ot Z88.8 ALLERGY STATUS TO OTH DRUG/MEDS/BIOL SUB 01/18/2018 BERNOT, ANTOINE Ot I10 ESSENTIAL (PRIMARY) HYPERTENSION 01/18/2018 BERNOT, ANTOINE Ot K21.9 GASTRO-ESOPHAGEAL REFLUX DISEASE WITHOUT 01/18/2018 BERNOT, ANTOINE Ot K57.30 DVRTCLOS OF LG INT W/O PERFORATION OR AB 01/18/2018 BERNOT, ANTOINE Ot R10.32 LEFT LOWER QUADRANT PAIN 01/18/2018 BERNOT, ANTOINE Ot Z79.51 INTERMEDIATE (CURRENT) USE OF INHALED STERO 01/18/2018 BERNOT, ANTOINE Ot Z79.52 INTERMEDIATE (CURRENT) USE OF SYSTEMIC STER 01/18/2018 ANTOINE MORRISON Ot Z87.01 PERSONAL HISTORY OF PNEUMONIA (RECURRENT 01/18/2018 ANTOINE MORRISON Ot Z87.448 PERSONAL HISTORY OF OTHER DISEASES OF UR 01/18/2018 ANTOINE MORRISON Ot Z87.891 PERSONAL HISTORY OF NICOTINE DEPENDENCE 01/18/2018 ANTOINE MORRISON Ot Z88.8 ALLERGY STATUS TO OTH DRUG/MEDS/BIOL SUB Procedures Code Description Performed By Performed On [id number] INSERT INFUSION DEV IN R INT JUGULAR [...] 5-8.5 Urine-Protein Trace Negative Urine-RBC 2-5/HPF Urine-Specific [place] 1.020 1.000-1.030 Urine-WBC Rare/HPF Urobilinogen 0.2 E.U./dL [...] 05:25 Band 5 Lym% 2.0 % 10.0-50.0 [place]% 2.0 % 0.0-12.0 Dhiraj% 91.0 % 37.0-80.0 [...] - 04/21/16 06:52 Peripheral smear Sent to [facility] for review CBC with Auto Diff - 04/21/16 07:57 Baso% 0.00 % 0.00-2.50 Eos 0.0 K/uL 0.0-0.7 Eos% 0.0 % 0.0-7.0 Hct 36.4 % 36.0-46.0 Hgb 11.0 g/dL 13.0-15.0 Lym 0.93 K/uL 0.60-3.40 Lym% 3.5 % 10.0-50.0 MCH 29.4 pg 27.0-31.0 MCHC 30.2 g/dL 32.0-36.0 MCV 97.3 fL 80.0-97.0 [place]% 1.5 % 0.0-12.0 MPV 9.6 fL 7.4-10.0 Dhiraj% 95.0 % 37.0-80.0 Plt 263 K/uL 150-400 RBC 3.74 M/uL 3.60-5.00 RDW 14.9 % 11.6-14.8 WBC 26.38 Result Verified by Repeat Analysis K/uL 5.00- 10.00 Dhiraj 25.03 K/uL 2.00-6.90 [place] 0.4 K/uL 0.0-0.9 Baso 0.0 K/uL 0.0-0.2 [...] for MRSA is NEGATIVE (Final to follow) NRG Bacterial sputum culture [id number] NRG Magnesium - 04/22/16 13:00 Magnesium 2.4 [...] at 15:26 on 03/14/2017 CULTURE SOURCE void Comprehensive metabolic panel - 01/13/18 10:55 Serum or plasma sodium measurement (moles/volume) 141 mmol/L 135-145 Serum or plasma potassium measurement (moles/volume) 4.0 mmol/L 3.6-5.0 Serum or plasma chloride measurement (moles/volume) 101 mmol/L 98-107 Carbon dioxide 32 mmol/L 21-32 Serum or plasma anion gap determination (moles/volume) 8 mmol/L 5-14 Serum or plasma urea nitrogen measurement (mass/volume) 11 mg/dL 7-18 Serum or plasma creatinine measurement (mass/volume) 0.79 mg/dL 0.60-1.30 Serum or plasma urea nitrogen/creatinine mass ratio 14 NRG Serum or plasma creatinine measurement with calculation of estimated glomerular filtration rate > NRG Serum or plasma glucose measurement (mass/volume) 117 mg/dL 70-105 Serum or plasma calcium measurement (mass/volume) 9.5 mg/dL 8.5-10.1 Serum or plasma total bilirubin measurement (mass/volume) 0.3 mg/dL 0.1-1.0 Serum or plasma alkaline phosphatase measurement (enzymatic activity/volume) 87 U/L 40-136 Serum or plasma aspartate aminotransferase measurement (enzymatic activity/ volume) 23 U/L 5-34 Serum or plasma alanine aminotransferase measurement (enzymatic activity/volume ) 21 U/L 0-55 Serum or plasma protein measurement (mass/volume) 7.3 g/dL 6.4-8.2 Serum or plasma albumin measurement (mass/volume) 4.4 g/dL 3.2-4.5 CALCIUM CORRECTED 9.2 mg/dL 8.5-10.1 Serum or plasma amylase measurement (enzymatic activity/volume) - 01/13/18 10: 55 Serum or plasma amylase measurement (enzymatic activity/volume) 19 U /L 25-125 Lipase - 01/13/18 10:55 Lipase 21 U/L 8-78 Complete blood count (CBC) with automated white blood cell (WBC) differential - 01/13/18 10:55 Blood leukocytes automated count (number/volume) 11.6 10*3/uL 4.3-11.0 Blood erythrocytes automated count (number/volume) 4.43 10*6/uL 4.35-5.85 Venous blood hemoglobin measurement (mass/volume) 11.9 g/dL 11.5-16.0 Blood hematocrit (volume fraction) 39 % 35-52 Automated erythrocyte mean corpuscular volume 88 [foz_us] 80-99 Automated erythrocyte mean corpuscular hemoglobin (mass per erythrocyte) 27 pg 25-34 Automated erythrocyte mean corpuscular hemoglobin concentration measurement ( mass/volume) 31 g/dL 32-36 Automated erythrocyte distribution width ratio 15.9 % 10.0-14.5 Automated blood platelet count (count/volume) 365 10*3/uL 130-400 Automated blood platelet mean volume measurement 10.7 [foz_us] 7.4-10.4 Automated blood neutrophils/100 leukocytes 75 % 42-75 Automated blood lymphocytes/100 leukocytes 15 % 12-44 Blood monocytes/100 leukocytes 8 % 0-12 Automated blood eosinophils/100 leukocytes 2 % 0-10 Automated blood basophils/100 leukocytes 1 % 0-10 Blood neutrophils automated count (number/volume) 8.7 10*3 1.8-7.8 Blood lymphocytes automated count (number/volume) 1.8 10*3 1.0-4.0 Blood monocytes automated count (number/volume) 0.9 10*3 0.0-1.0 Automated eosinophil count 0.2 10*3/uL 0.0-0.3 Automated blood basophil count (count/volume) 0.1 10*3/uL 0.0-0.1 Complete urinalysis with reflex to culture - 01/13/18 11:30 Urine color determination YELLOW NRG Urine clarity determination CLEAR NRG Urine pH measurement by test strip 8 5-9 Specific gravity of urine by test strip 1.015 1.016- 1.022 Urine protein assay by test strip, semi-quantitative NEGATIVE NEGATIVE Urine glucose detection by automated test strip NEGATIVE NEGATIVE Erythrocytes detection in urine sediment by light microscopy 1+ NEGATIVE Urine ketones detection by automated test strip NEGATIVE NEGATIVE Urine nitrite detection by test strip NEGATIVE NEGATIVE Urine total bilirubin detection by test strip NEGATIVE NEGATIVE Urine urobilinogen measurement by automated test strip (mass/volume) NORMAL NORMAL Urine leukocyte esterase detection by dipstick NEGATIVE NEGATIVE Automated urine sediment erythrocyte count by microscopy (number/high power field) [HPF] NRG Automated urine sediment leukocyte count by microscopy (number/high power field ) NONE NRG Bacteria detection in urine sediment by light microscopy NEGATIVE NRG Squamous epithelial cells detection in urine sediment by light microscopy 5-10 NRG Crystals detection in urine sediment by light microscopy NONE NRG Casts detection in urine sediment by light microscopy NONE NRG Mucus detection in urine sediment by light microscopy NEGATIVE NRG Complete urinalysis with reflex to culture NO NRG Encounters ACCT No. Visit Date/Time Discharge Status Pt. Type Provider Facility Loc./Unit Complaint [id number] 01/20/2018 10:40:55 01/20/2018 23:59:59 CLS Outpatient RIO JOHN [id number] 12/31/2017 09:03:21 12/31/2017 23:59:59 CLS Outpatient ALVARO, RIO Gilman [id number] 11/12/2017 09:46:37 11/12/2017 23:59:59 CLS Outpatient ALVARO, RIO Gilman [id number] 10/28/2017 10:09:54 10/28/2017 23:59:59 CLS Outpatient ALVARO, RIO Gilman [id number] 10/22/2017 09:36:38 10/22/2017 23:59:59 CLS Outpatient ALVARO, RIO Gilman [id number] 09/03/2017 10:42:46 09/03/2017 23:59:59 CLS Outpatient ALVARO, RIO Gilman [id number] 08/20/2017 10:27:14 08/20/2017 23:59:59 CLS Outpatient ALVARO, RIO Gilman [id number] 07/31/2017 09:53:22 07/31/2017 23:59:59 CLS Outpatient ALVARO, RIO Mukul [id number] 07/05/2017 11:26:57 07/05/2017 23:59:59 CLS Outpatient ALVARO, RIO Gilman [id number] 05/08/2017 09:40:30 05/08/2017 23:59:59 CLS Outpatient ALVARORIO [id number] 04/15/2017 10:29:01 04/15/2017 23:59:59 CLS Outpatient ALVARORIO [id number] 04/01/2017 09:55:14 04/01/2017 23:59:59 CLS Outpatient ALVARORIO Mukul [id number] 03/25/2017 10:21:41 03/25/2017 23:59:59 CLS Outpatient ALVARORIO SPEAR Mukul [id number] 03/12/2017 10:14:52 03/12/2017 23:59:59 CLS Outpatient ALVARO, RIO Mukul [id number] 03/05/2017 11:23:58 03/05/2017 23:59:59 CLS Outpatient ALVARORIO Mukul [id number] 03/04/2017 16:16:10 03/04/2017 23:59:59 CLS Outpatient Mukul Lopez [id number] 02/26/2017 11:31:04 02/26/2017 23:59:59 CLS Outpatient ALVARORIO SPEAR Mukul [id number] 02/14/2017 10:37:46 02/14/2017 23:59:59 CLS Outpatient ALVARO, RIO Mukul [id number] 02/01/2017 10:53:51 02/01/2017 23:59:59 CLS Outpatient ALVARO, RIO Gilman [id number] 01/28/2017 10:28:44 01/28/2017 23:59:59 CLS Outpatient ALVARO, RIO Gilman [id number] 01/21/2017 10:37:31 01/21/2017 23:59:59 CLS Outpatient ALVARO, RIO Gilman [id number] 01/09/2017 10:13:36 01/09/2017 23:59:59 CLS Outpatient ALVARO, RIO Gilman [id number] 01/03/2017 10:44:49 01/03/2017 23:59:59 CLS Outpatient ALVARO, RIO Gilman [id number] 12/28/2016 10:32:41 12/28/2016 23:59:59 CLS Outpatient ALVARO, RIO Gilman [id number] 12/25/2016 10:08:41 12/25/2016 23:59:59 CLS Outpatient ALVARO, RIO Gilman [id number] 12/17/2016 12:38:01 12/17/2016 23:59:59 CLS Outpatient ALVARO, RIO Mukul [id number] 12/05/2016 08:42:50 12/05/2016 23:59:59 CLS Outpatient ALVARO, RIO Mukul [id number] 11/30/2016 08:16:24 11/30/2016 23:59:59 CLS Outpatient ALVARO, RIO Mukul [id number] 11/16/2016 11:00:58 11/16/2016 23:59:59 CLS Outpatient ALVARORIO Mukul [id number] 11/01/2016 09:18:45 11/01/2016 23:59:59 CLS Outpatient ALVARO, RIO Mukul [id number] 10/25/2016 11:29:11 10/25/2016 23:59:59 CLS Outpatient ALVARO, RIO Mukul [id number] 10/18/2016 10:19:45 10/18/2016 23:59:59 CLS Outpatient ALVARO, RIO Mukul [id number] 10/04/2016 10:40:18 10/04/2016 23:59:59 CLS Outpatient ALVARO, RIO Mukul [id number] 09/07/2016 09:47:39 09/07/2016 23:59:59 CLS Outpatient ALVARO, RIO Mukul [id number] 09/03/2016 10:25:52 09/03/2016 23:59:59 CLS Outpatient ALVARO, RIO W [id number] 08/20/2016 11:14:17 08/20/2016 23:59:59 CLS Outpatient RIO JOHN [id number] 08/15/2016 10:01:55 08/15/2016 23:59:59 CLS Outpatient ALVARORIO SPEAR [id number] 08/09/2016 10:42:54 08/09/2016 23:59:59 CLS Outpatient RIO JOHN [id number] 07/27/2016 10:29:54 07/27/2016 23:59:59 CLS Outpatient RIO JOHN [id number] 07/18/2016 10:47:41 07/18/2016 23:59:59 CLS Outpatient RIO JOHN [id number] 07/16/2016 11:28:29 07/16/2016 23:59:59 CLS Outpatient RIO JOHN [id number] 07/06/2016 11:09:23 07/06/2016 23:59:59 CLS Outpatient RIO JOHN [id number] 06/29/2016 11:04:23 06/29/2016 23:59:59 CLS Outpatient RIO JOHN [id number] 06/26/2016 11:06:37 06/26/2016 23:59:59 CLS Outpatient RIO JOHN [id number] 06/15/2016 15:59:58 06/15/2016 23:59:59 CLS Outpatient Mukul Lopez [id number] 06/04/2016 07:45:22 06/04/2016 23:59:59 CLS Outpatient RIO JOHN [id number] 05/31/2016 10:47:42 05/31/2016 23:59:59 CLS Outpatient RIO JOHN [id number] 05/14/2016 10:44:12 05/14/2016 23:59:59 CLS Outpatient RIO JOHN [id number] 04/17/2016 10:55:27 04/17/2016 23:59:59 CLS Outpatient RIO JOHN [id number] 04/02/2016 12:32:04 04/02/2016 23:59:59 CLS Outpatient Simba PhelpsMichael [id number] 04/02/2016 10:27:26 04/02/2016 23:59:59 CLS Outpatient RIO JOHN [id number] 03/22/2016 10:10:07 03/22/2016 23:59:59 CLS Outpatient ALVARO, RIO Gilman [id number] 12/15/2015 10:58:44 12/15/2015 23:59:59 CLS Outpatient ALVARO, RIO Gilman [id number] 07/05/2015 14:03:00 07/05/2015 23:59:59 CLS Outpatient ALVARO, RIO Gilman [id number] 06/09/2015 10:22:26 06/09/2015 23:59:59 CLS Outpatient ALVARO, RIO Gilman [id number] 05/12/2015 10:51:17 05/12/2015 23:59:59 CLS Outpatient ALVARO, RIO Gilman [id number] 03/25/2015 10:47:56 03/25/2015 23:59:59 CLS Outpatient ALVARO, RIO Gilman [id number] 01/28/2015 10:33:04 01/28/2015 23:59:59 CLS Outpatient ALVARO, RIO Gilman [id number] 01/24/2015 11:07:00 01/24/2015 23:59:59 CLS Outpatient ALVARO, RIO Gilman [id number] 01/03/2015 11:08:28 01/03/2015 23:59:59 CLS Outpatient ALVARO, RIO Gilman [id number] 12/13/2014 22:16:02 12/13/2014 23:59:59 CLS Outpatient ALVARO, RIO Gilman [id number] 08/26/2014 07:52:40 08/26/2014 23:59:59 CLS Outpatient ALVARO, RIO Gilman [id number] 08/13/2014 10:43:05 08/13/2014 23:59:59 CLS Outpatient ALVARO, RIO Gilman [id number] 05/14/2014 10:01:42 05/14/2014 23:59:59 CLS Outpatient ALVARO, RIO Gilman [id number] 05/11/2014 10:45:55 05/11/2014 23:59:59 CLS Outpatient ALVARO, RIO Gilman [id number] 04/21/2014 10:40:23 04/21/2014 23:59:59 CLS Outpatient ALVARO, RIO Gilman [id number] 02/18/2014 09:44:24 02/18/2014 23:59:59 CLS Outpatient ALVARO, RIO Gilman [id number] 12/01/2013 11:27:11 12/01/2013 23:59:59 CLS Outpatient ALVARO, RIO Gilman [id number] 11/09/2013 11:07:31 11/09/2013 23:59:59 CLS Outpatient ALVARO, RIO Mukul [id number] 08/27/2013 11:03:09 08/27/2013 23:59:59 CLS Outpatient ALVARO, RIO Mukul [id number] 06/19/2013 10:38:12 06/19/2013 23:59:59 CLS Outpatient ALVARO, RIO Mukul [id number] 06/02/2013 08:04:51 06/02/2013 23:59:59 CLS Outpatient ALVARO, RIO Mukul [id number] 12/10/2016 23:00:00 12/10/2016 23:59:59 DIS Outpatient TORITO ANDREW [facility] [id number] 02/22/2017 09:46:00 04/25/2017 10:45:00 DIS Outpatient Alvaro Rio [id number] 03/14/2017 09:27:00 03/14/2017 23:59:00 DIS Outpatient AlvaroRio [id number] 11/07/2016 09:30:00 12/31/2016 14:40:00 DIS Outpatient Humble Mckinley [id number] 11/21/2016 07:46:00 11/21/2016 23:59:00 DIS Outpatient AlvaroRio [id number] 11/19/2016 09:34:00 11/19/2016 23:59:00 DIS Outpatient Rio John [id number] 10/31/2016 08:04:00 10/31/2016 23:59:00 DIS Outpatient Alvaro Rio [id number] 10/23/2016 08:27:00 10/23/2016 23:59:00 DIS Outpatient Rio John [id number] 07/26/2016 08:19:00 07/26/2016 23:59:00 DIS Outpatient Rio John [id number] 07/13/2016 08:47:00 07/13/2016 23:59:00 DIS Outpatient Rio John [id number] 07/05/2016 11:19:00 07/05/2016 23:59:00 DIS Outpatient Rio John [id number] 06/27/2016 13:05:00 06/27/2016 23:59:00 DIS Outpatient Rio John [id number] 04/20/2016 11:10:00 04/21/2016 11:35:00 [id number]2016 11:38:30 Document Registration [id number] 01/27/2018 05:51:00 01/27/2018 23:59:59 CLS Outpatient MAYUR DEAN, DWAYNE Kim [facility] PREOP COLONOSCOPY [id number] 01/13/2018 10:31:00 01/13/2018 13:28:00 DIS Emergency ANTOINE MORRISON [facility] ER LEFT SIDE ABD PAIN [id number] 01/23/2017 12:42:00 01/23/2017 23:59:59 CLS Preadmit MUSA DEAN, SVEN Jones [facility] RENAL FAILURE [id number] 01/04/2017 15:54:00 01/04/2017 23:59:59 CLS Outpatient SVEN VIGIL MD [facility] DM [id number] 07/04/2016 09:07:00 07/04/2016 23:59:59 CLS Outpatient NICHELLE CRISTOBAL APRN [facility] RT HYPOXEMIA REQUIRING SUPPLEMENTAL OXYGEN [id number] 06/15/2016 10:43:00 06/15/2016 23:59:59 CLS Outpatient NICHELLE CRISTOBAL [employer] DEVELOPER [facility] RAD PNEUMONIA [id number] 05/16/2016 15:15:00 05/16/2016 23:59:59 CLS Outpatient SVEN VIGIL MD [facility] HYPERLIPIDEMIA, CHF, DIVERTICULITIS [id number] 04/24/2016 09:12:00 04/30/2016 12:13:00 DIS Inpatient HONEY GORE MD [facility] 4TH SWB COPD [id number] 04/21/2016 12:25:00 04/24/2016 09:12:00 DIS Inpatient NGUYEN OLSON DO [facility] 4TH PNEUMONIA [id number] 11/08/2015 08:44:00 11/08/2015 10:33:00 DIS Emergency KLEVER MEANS MD [facility] ER FALL/LEFT FOOT PAIN [id number] 02/11/2014 09:31:00 02/11/2014 23:59:59 CLS Outpatient LISA YATES DO [facility] RAD ADHESIVE CAPSULITIS [id number] 02/03/2018 08:00:00 PEN Preadmit MAYUR DEAN, DWAYNE Kim [facility] ENDO HX POLYPS/DIVERTIC [id number] 06/21/2011 09:42:00 Document Registration [id number] 04/02/2011 09:03:00 Document Registration [id number] 03/20/2011 09:56:00 Document Registration
[2018-02-03 10:50] VITALS: BP 141/71
--- NOTE | 2018-02-03 14:28 | Anesthesia-General Post-Op ---
MAC Patient Condition Mental Status/LOC: Same as Preop Cardiovascular: Satisfactory Nausea/Vomiting: Absent Respiratory: Satisfactory Pain: Controlled Complications: Absent Post Op Complications Complications None Follow Up Care/Instructions Patient Instructions None needed. Anesthesiology Discharge Order Discharge Order Patient was seen this morning after the procedure and she was doing well. No complications noted. TANYA JUNIOR DO Feb 03, 2018 14:28
== END 2018-02-03 10:50 | disposition home or self-care (01) ==
LOC: ENDO 06:58
PROVIDERS: ATTEND Surgery
DX: Z12.11 Encounter for screening for malignant neoplasm of colon (principal); D12.3 Benign neoplasm of transverse colon; K63.5 Polyp of colon; K57.30 Diverticulosis of large intestine without perforation or abscess without bleeding; J44.9 Chronic obstructive pulmonary disease, unspecified; I10 Essential (primary) hypertension; K21.9 Gastro-esophageal reflux disease without esophagitis; Z87.891 Personal history of nicotine dependence; Z79.899 Other long term (current) drug therapy

== ENCOUNTER 2019-04-15 06:16 | Outpatient (CLI) | payer MEDICARE, MEDICAID ==
[~2019-04-15] VITALS: Ht 162.6 cm; Wt 93.2 kg
[~2019-04-15 06:16] MED LIST changes: -AMLO5TAB7 PO; +AMLO5TAB9 PO
[2019-04-15] MEDS ORDERED: NYST1000 PO (11:52)
[2019-04-15] MEDS ORDERED: AMOX500C2 PO (11:52)
== END 2019-04-15 12:00 ==
LOC: PREOP 06:16
PROVIDERS: ATTEND Specialist
DX: Z01.818 Encounter for other preprocedural examination (principal)

== ENCOUNTER 2019-04-17 07:31 | Day surgery (SDC) | payer MEDICARE, MEDICAID ==
[~2019-04-17] VITALS: Ht 163 cm; Wt 93.2 kg
[~2019-04-17 07:31] MED LIST changes: +AMOX500C2 PO; +NYST1000 PO
[2019-04-17] MEDS ORDERED: TIMOLOL MALEATE 0.5% 5 ML (TIMOPTIC) BTL OU PRN (07:45)
[2019-04-17] MEDS ORDERED: LIDOCAINE PF 1% 2 ML AMP IR PRN (07:45)
[2019-04-17] MEDS ORDERED: MOXIFLOXACIN OPHTH SOLN 5 MG/ML 0.3 ML SYRINGE OP ONE (07:45)
[2019-04-17] MEDS ORDERED: POVIDONE (BETADINE) OPHTH SOLN 5% 30 ML OP ONE (07:45)
[2019-04-17] MEDS: TETRACAINE 0.5% OPHTH SOLN 4 ML BTL (SINGLE DOSE ONLY) OU PRN ×4 (07:53→08:20)
[2019-04-17 07:55] VITALS: BP 144/72
[2019-04-17] MEDS: PHENYLEPHRINE 10% OPHTH (NEO-SYN) 5 ML BTL OU SCH ×3 (08:05→08:20)
[2019-04-17] MEDS: CYCLOPENTOLATE 1% (CYCLOGYL) 2 ML DROPS OP SCH ×3 (08:05→08:20)
--- NOTE | 2019-04-17 08:23 | Ophthalmologist Pre-Op Note ---
Pre-Operative Progress Note H&P Reviewed The H&P was reviewed, patient examined and no changes noted. Date H&P Reviewed: Apr 17, 2019 Time H&P Reviewed: 08:23 Pre-Op Dx Cataract, Left Eye DAWSON VERDIN MD Apr 17, 2019 08:23 POS
[2019-04-17] MEDS ORDERED: MIDAZOLAM 2 MG/2 ML (VERSED) VIAL ONE (08:30)
--- NOTE | 2019-04-17 08:46 | Ophthalmology Operative Report ---
Cataract removal/placement IOL PREOPERATIVE DIAGNOSIS: Cataract Left Eye POSTOPERATIVE DIAGNOSIS: Cataract Left Eye PROCEDURE: Cataract removal and placement of posterior chamber implant, left eye SURGEON: Eleazar Verdin ANESTHESIA: Topical with sedation COMPLICATIONS: None ESTIMATED BLOOD LOSS: Minimal DESCRIPTION OF PROCEDURE: After proper informed consent was obtained, the patient, a 73 female, was taken to the Operating Room and the left eye was anesthetized with tetracaine. The left eye was then prepped and draped in the usual manner. A wire lid speculum was placed. A paracentesis was made at the left hand position. Preservative free lidocaine was injected into the anterior chamber followed by viscoelastic. A clear corneal incision was made in the temporal position. A capsulorrhexis was preformed and the central nuclear and cortical material were removed. The posterior capsule was polished and an Anibal 20.0 [id number] was placed into the capsular bag. The residual viscoelastic was aspirated and balanced saline solution was injected into the anterior chamber. Moxifloxacin was injected into the anterior chamber. The wound was checked and found to be water tight. The patient tolerated the procedure well without complications. ELEAZAR VERDIN MD Apr 17, 2019 08:46 POS
[2019-04-17 08:55] VITALS: BP 151/80
[2019-04-17] MEDS ORDERED: acetaZOLAMIDE ER 500 MG CAP (DIAMOX SEQUELS) PO ONE (09:00)
--- NOTE | 2019-04-17 12:36 | Anesthesia-General Post-Op ---
MAC Patient Condition Mental Status/LOC: Same as Preop Cardiovascular: Satisfactory Nausea/Vomiting: Absent Respiratory: Satisfactory Pain: Controlled Complications: Absent Post Op Complications Complications None Follow Up Care/Instructions Patient Instructions None needed. Anesthesiology Discharge Order Discharge Order Patient is doing well, no complaints, stable vital signs, no apparent adverse anesthesia problems. No complications reported per nursing. TANMAY WEI CRNA Apr 17, 2019 12:36 POS
== END 2019-04-17 08:55 | disposition home or self-care (01) ==
LOC: SDC 07:31
PROVIDERS: ATTEND Specialist
DX: H25.12 Age-related nuclear cataract, left eye (principal); J44.9 Chronic obstructive pulmonary disease, unspecified; F41.9 Anxiety disorder, unspecified; E78.00 Pure hypercholesterolemia, unspecified; M19.90 Unspecified osteoarthritis, unspecified site; Z80.9 Family history of malignant neoplasm, unspecified; Z88.5 Allergy status to narcotic agent; Z88.6 Allergy status to analgesic agent; I10 Essential (primary) hypertension; Z99.81 Dependence on supplemental oxygen; Z90.49 Acquired absence of other specified parts of digestive tract; Z79.2 Long term (current) use of antibiotics; Z79.52 Long term (current) use of systemic steroids; Z79.899 Other long term (current) drug therapy

== ENCOUNTER 2019-05-04 05:37 | Outpatient (CLI) | payer MEDICARE, MEDICAID | END 2019-05-04 10:36 | disposition home or self-care (01) | LOC: PREOP 05:37 | PROVIDERS: ATTEND Specialist | DX: Z01.818 Encounter for other preprocedural examination (principal) ==

== ENCOUNTER 2019-05-08 06:14 | Day surgery (SDC) | payer MEDICARE, MEDICAID ==
[~2019-05-08] VITALS: Ht 163 cm; Wt 93.2 kg
[2019-05-08 06:15] VITALS: BP 154/73
[2019-05-08] MEDS ORDERED: MOXIFLOXACIN OPHTH SOLN 5 MG/ML 0.3 ML SYRINGE OP ONE (06:15)
[2019-05-08] MEDS ORDERED: LIDOCAINE PF 1% 2 ML VIAL IR PRN (06:15)
[2019-05-08] MEDS ORDERED: TIMOLOL MALEATE 0.5% 5 ML (TIMOPTIC) BTL OU PRN (06:15)
[2019-05-08] MEDS ORDERED: POVIDONE (BETADINE) OPHTH SOLN 5% 30 ML OP ONE (06:15)
[2019-05-08] MEDS: TETRACAINE 0.5% OPHTH SOLN 4 ML BTL (SINGLE DOSE ONLY) OU PRN ×4 (06:33→06:52)
[2019-05-08] MEDS: CYCLOPENTOLATE 1% (CYCLOGYL) 2 ML DROPS OP SCH ×3 (06:42→06:52)
[2019-05-08] MEDS: PHENYLEPHRINE 10% OPHTH (NEO-SYN) 5 ML BTL OU SCH ×3 (06:42→06:52)
[2019-05-08] MEDS ORDERED: MIDAZOLAM 2 MG/2 ML (VERSED) VIAL ONE (07:01)
[2019-05-08] MEDS ORDERED: acetaZOLAMIDE ER 500 MG CAP (DIAMOX SEQUELS) PO ONE (07:30)
[2019-05-08 07:43] VITALS: BP 125/87
--- NOTE | 2019-05-08 09:21 | Ophthalmologist Pre-Op Note ---
Pre-Operative Progress Note H&P Reviewed The H&P was reviewed, patient examined and no changes noted. Date H&P Reviewed: May 08, 2019 Time H&P Reviewed: 07:10 Pre-Op Dx Cataract, Right Eye DAWSON VERDIN MD May 08, 2019 09:21
--- NOTE | 2019-05-08 09:21 | Ophthalmology Operative Report ---
Cataract removal/placement IOL PREOPERATIVE DIAGNOSIS: Cataract Right Eye POSTOPERATIVE DIAGNOSIS: Cataract Right Eye PROCEDURE: Cataract removal and placement of posterior chamber implant, right eye SURGEON: Eleazar Verdin ANESTHESIA: Topical with sedation COMPLICATIONS: None ESTIMATED BLOOD LOSS: Minimal DESCRIPTION OF PROCEDURE: After proper informed consent was obtained, the patient, a 73 female, was taken to the Operating Room and the right eye was anesthetized with tetracaine. The right eye was then prepped and draped in the usual manner. A wire lid speculum was placed. A paracentesis was made at the left hand position. Preservative free lidocaine was injected into the anterior chamber followed by viscoelastic. A clear corneal incision was made in the temporal position. A capsulorrhexis was preformed and the central nuclear and cortical material were removed. The posterior capsule was polished and Anibal 20.0 AU00T0 IOL was placed into the capsular bag. The residual viscoelastic was aspirated and balanced saline solution was injected into the anterior chamber. Moxifloxacin was injected into the anterior chamber. The wound was checked and found to be water tight. The patient tolerated the procedure well without complications. ELEAZAR VERDIN MD May 08, 2019 09:21
--- NOTE | 2019-05-08 11:06 | Anesthesia-General Post-Op ---
MAC Patient Condition Mental Status/LOC: Same as Preop Cardiovascular: Satisfactory Nausea/Vomiting: Absent Respiratory: Satisfactory Pain: Controlled Complications: Absent Post Op Complications Complications None Follow Up Care/Instructions Patient Instructions None needed. Anesthesiology Discharge Order Discharge Order Patient was seen this morning after the procedure and she was doing well, no complaints, stable vital signs, no apparent adverse anesthesia problems. TANYA JUNIOR DO May 08, 2019 11:06
== END 2019-05-08 07:43 | disposition home or self-care (01) ==
LOC: SDC 06:14
PROVIDERS: ATTEND Specialist
DX: H25.11 Age-related nuclear cataract, right eye (principal); I10 Essential (primary) hypertension; E78.5 Hyperlipidemia, unspecified; M19.90 Unspecified osteoarthritis, unspecified site; E78.00 Pure hypercholesterolemia, unspecified; J44.9 Chronic obstructive pulmonary disease, unspecified; F41.9 Anxiety disorder, unspecified; Z79.899 Other long term (current) drug therapy; Z88.8 Allergy status to other drugs, medicaments and biological substances; Z90.710 Acquired absence of both cervix and uterus; Z90.49 Acquired absence of other specified parts of digestive tract; Z87.891 Personal history of nicotine dependence; Z80.9 Family history of malignant neoplasm, unspecified

== ENCOUNTER 2019-06-23 14:56 | Emergency (ER) | payer MEDICARE, MEDICAID ==
[~2019-06-23] VITALS: Ht 162 cm; Wt 93.2 kg
[~2019-06-23 14:56] MED LIST changes: +LISI1TAB29 PO; -LISI1TAB6 PO
[2019-06-23] MEDS ORDERED: NS IV 500 ML 500 ML IV ONE (15:36)
[2019-06-23] MEDS ORDERED: NS IV 1000 ML 1,000 ML IV SCH (15:36)
[2019-06-23] MEDS ORDERED: cefTRIAXone FOR IV USE 1,000 MG in WATER (STERILE) FOR INJECTION 10 ML IV ONE (15:45)
[2019-06-23] MEDS ORDERED: metroNIDAZOLE 500MG/100ML IVPB 100 ML IV ONE (15:45)
[2019-06-23 15:51] LABS: BASOPHILS % (AUTO) 0 % (0-10); BILIRUBIN,URINE NEGATIVE (NEGATIVE); CLARITY,URINE CLEAR; COLOR,URINE YELLOW; EOSINOPHILS # (AUTO) 0.1 10^3/uL (0.0-0.3); EOSINOPHILS % (AUTO) 1 % (0-10); GLUCOSE, URINE (UA) NEGATIVE (NEGATIVE); HEMATOCRIT 37 % (35-52); KETONES,URINE NEGATIVE (NEGATIVE); LEUKOCYTE ESTERASE ,URINE NEGATIVE (NEGATIVE); LYMPHOCYTES # (AUTO) 1.4 X 10^3 (1.0-4.0); LYMPHOCYTES % (AUTO) 7 % (12-44); MEAN CORPUSCULAR HEMOGLOBIN 26 PG (25-34); MEAN CORPUSCULAR HGB CONC 30 G/DL (32-36); MEAN CORPUSCULAR VOLUME 87 FL (80-99); MEAN PLATELET VOLUME 10.6 FL (7.4-10.4); MONOCYTES # (AUTO) 0.9 X 10^3 (0.0-1.0); MONOCYTES % (AUTO) 5 % (0-12); NEUTROPHILS % (AUTO) 87 % (42-75); NITRITE,URINE NEGATIVE (NEGATIVE); PLATELET COUNT 330 10^3/uL (130-400); PROTEIN,URINE NEGATIVE (NEGATIVE); RED CELL DISTRIBUTION WIDTH 16.7 % (10.0-14.5); WHITE BLOOD COUNT 18.5 10^3/uL (4.3-11.0)
--- NOTE | 2019-06-23 16:04 | ED Abdominal Pain ---
General Chief Complaint: Abdominal/GI Problems Stated Complaint: N/V/ABD PAIN Nursing Triage Note: PT STATES NVD SINCE LAST WEEK. TALKED TO AND WAS PUT ON CARAFATE BUT DID NOT HELP. HX OF IB Sepsis Screen: No Definite Risk Source of Information: Patient, Family Exam Limitations: No Limitations History of Present Illness Date Seen by Provider: Jun 23, 2019 Time Seen by Provider: 15:20 Initial Comments Patient presents to ER by private conveyance with chief complaint of abdominal pain nausea vomiting with normal formed bowel movements for the past 3 or 4 days. She saw her doctor and was put on Carafate without any help. She has a history of irritable bowel as well as cholecystectomy and diverticulitis. No other intra-abdominal surgeries. She's not diabetic on blood thinners but she has a history of high blood pressure high cholesterol. No history of coronary disease. She rates the pain is intermittent, [id number] and and does not want anything for the pain at this time. She is having some nausea presently. No blood in stool. No black tarry stool. She has baseline oxygen dependent on 3 L and not requiring any extra over that. No subjective shortness of breath p resently. No cough fevers, chills, body aches. She is a former smoker for years ago. She denies alcohol or drugs. Allergies and Home Medications Allergies Coded Allergies: pseudoephedrine (Unverified Allergy, Unknown, 04/21/16) meperidine HCl (Unverified Adverse Reaction, Unknown, VOMITING, 04/21/16) Home Medications Albuterol Sulfate 8.5 Gm Hfa.aer.ad, 1-2 PUFF IH Q6H PRN for SHORTNESS OF BREATH, (Reported) Albuterol Sulfate 2.5 Mg/3 Ml Vial.neb, 2.5 MG INH QID, (Reported) Alprazolam 0.5 Mg Tablet, 0.5 MG PO TID PRN for ANXIETY, (Reported) Amlodipine Besylate 5 Mg Tablet, 5 MG PO DAILY, (Reported) Amoxicillin 500 Mg Capsule, 500 MG PO TID, (Reported) Budesonide/Formoterol Fumarate 10.2 Gm Hfa.aer.ad, 2 PUFF INH BID, (Reported) Cholecalciferol 5,000 Unit Capsule, 5,000 UNIT PO DAILY, (Reported) Dexlansoprazole 60 Mg bp, 60 MG PO DAILY, (Reported) Fluticasone Propionate 16 [address] [place].susp, 1 SPRAY NSEACH DAILY, (Reported) Rosalba & Christelle Bethealactis 1 Each Capsule, 1 EACH PO BID Prescribed by: FABIANO LY on 06/23/191934 Loratadine 10 Mg Tablet, 10 MG PO DAILY, (Reported) Metronidazole 500 Mg Tablet, 500 MG PO TID Prescribed by: FABIANO LY on 06/23/191934 Nystatin 100,000 Unit/1 Ml Oral.susp, 1 ML PO QID, (Reported) Ondansetron 4 Mg Tab.rapdis, 4 MG PO Q6H PRN for NAUSEA/VOMITING Prescribed by: FABIANO LY on 06/23/191934 Promethazine HCl 25 Mg Tablet, 25 MG PO Q6H PRN for NAUSEA/VOMITING-2ND LINE Prescribed by: FABIANO LY on 06/23/191934 Patient Home Medication List Home Medication List Reviewed: Yes Review of Systems Review of Systems Constitutional: No chills, No diaphoresis, No fever EENTM: No Blurred Vision, No Double Vision Respiratory: Denies Cough, Denies Shortness of Air, Denies SOA With Exertion Cardiovascular: Denies Chest Pain, Denies Irregular Heart Rate, Denies Lightheadedness, Denies Palpitations, Denies Syncope Gastrointestinal: See HPI, Abdomen Distended, Abdominal Pain; Denies Constipa obed, Denies Diarrhea; Nausea, Vomiting Genitourinary: Denies Burning, Denies Discharge Musculoskeletal: No back pain, No joint pain Skin: No pruritus, No rash Psychiatric/Neurological: Denies Headache, Denies Numbness All Other Systems Reviewed Negative Unless Noted: Yes Past Mweokbh-Hziyec-Gknqeq Hx Patient Social History Alcohol Use: Denies Use Recreational Drug Use: No Smoking Status: Former Smoker Type Used: Cigarettes Former Smoker, Quit: Apr 21, 2014 Recent Foreign Travel: No Contact w/Someone Who Travel: No Recent Infectious Disease Expo: No Recent Hopitalizations: No Physical Abuse: No Sexual Abuse: No Immunizations Up To Date Tetanus Booster (TDap): More than 5yrs Date of Pneumonia Vaccine: Apr 11, 2016 Date of Influenza Vaccine: Apr 11, 2016 Seasonal Allergies Seasonal Allergies: Yes Past Medical History Surgeries: Yes (ovarian cyst) Appendectomy, Gallbladder Respiratory: Yes (3.5L/NC) Pneumonia, COPD Cardiac: Yes Hypertension Neurological: Yes (SPINAL STENOSIS) Reproductive Disorders: No Sexually Transmitted Disease: No HIV/AIDS: No Gastrointestinal: Yes (BLOATING) Gastroesophageal Reflux Musculoskeletal: Yes Arthritis Endocrine: No HEENT: Yes Cataract Cancer: No Psychosocial: No Integumentary: No Blood Disorders: No Physical Exam Vital Signs Vital Signs - First Documented 06/23/19 15:18 Temp 37.2 Pulse 96 Resp 20 B/P (MAP) 144/80 (101) Pulse Ox 97 O2 Delivery Nasal Cannula O2 Flow Rate 3.50 Capillary Refill : Less Than 3 Seconds Height/Weight/BMI Height: 5'4.00" Weight: 223lbs. 0.0oz. [id number]; 35.00 BMI Method:Stated General Appearance: obese, other HEENT: PERRL/EOMI; No pharynx normal Neck: non-tender, full range of motion, normal inspection Respiratory: lungs clear, no respiratory distress, no accessory muscle use, decreased breath sounds, other (nasal cannula 3 L oxygen) Cardiovascular: normal peripheral pulses (heart rate 95), regular rate, rhythm, no edema Peripheral Pulses: 2+ Dorsalis Pedis (R) (quiescent), 2+ Left Dors-Pedis (L), 2+ Radial Pulses (R), 2+ Radial Pulses (L) Gastrointestinal: normal bowel sounds, soft, distended; No guarding, No rebound; tenderness (left upper and left lower quadrant) Extremities: normal range of motion, normal inspection, no pedal edema, normal capillary refill Neurologic/Psychiatric: alert, normal mood/affect, oriented x 3 Skin: normal color, warm/dry Focused Exam Lactate Level 06/23/19 15:39: Lactic Acid Level 1.84 Lactic Acid Level Laboratory Tests Test 06/23/19 15:39 Lactic Acid Level 1.84 MMOL/L (0.50-2.00) Progress/Results/Core Measures Results/Orders Lab Results Laboratory Tests Test 06/23/19 15:39 Range/Units White Blood Count 18.5 H 4.3-11.0 10^3/uL Red Blood Count 4.24 L 4.35-5.85 10^6/uL Hemoglobin 11.0 L 11.5-16.0 G/DL Hematocrit 37 35-52 % Mean Corpuscular Volume 87 80-99 FL Mean Corpuscular Hemoglobin 26 25-34 PG Mean Corpuscular Hemoglobin Concent 30 L 32-36 G/DL Red Cell Distribution Width 16.7 H 10.0-14.5 % Platelet Count 330 130-400 10^3/uL Mean Platelet Volume 10.6 H 7.4-10.4 FL Neutrophils (%) (Auto) 87 H 42-75 % Lymphocytes (%) (Auto) 7 L 12-44 % Monocytes (%) (Auto) 5 0-12 % Eosinophils (%) (Auto) 1 0-10 % Basophils (%) (Auto) 0 0-10 % Neutrophils # (Auto) 16.0 H 1.8-7.8 X 10^3 Lymphocytes # (Auto) 1.4 1.0-4.0 X 10^3 Monocytes # (Auto) 0.9 0.0-1.0 X 10^3 Eosinophils # (Auto) 0.1 0.0-0.3 10^3/uL Basophils # (Auto) 0.0 0.0-0.1 10^3/uL Neutrophils % (Manual) 92 % Lymphocytes % (Manual) 5 % Monocytes % (Manual) 3 % Anisocytosis SLIGHT Prothrombin Time 13.5 12.2-14.7 SEC INR Comment 1.0 0.8-1.4 Activated Partial Thromboplast Time 25 24-35 SEC Urine Color YELLOW Urine Clarity CLEAR Urine pH 8.0 5-9 Urine Specific [place] 1.010 L 1.016-1.022 Urine Protein NEGATIVE NEGATIVE Urine Glucose (UA) NEGATIVE NEGATIVE Urine Ketones NEGATIVE NEGATIVE Urine Nitrite NEGATIVE NEGATIVE Urine Bilirubin NEGATIVE NEGATIVE Urine Urobilinogen 0.2 < = 1.0 MG/DL Urine Leukocyte Esterase NEGATIVE NEGATIVE Urine RBC (Auto) TRACE-L NEGATIVE Urine RBC RARE /HPF Urine WBC NONE /HPF Urine Squamous Epithelial Cells 5-10 /HPF Urine Crystals NONE /LPF Urine Bacteria NEGATIVE /HPF Urine Casts NONE /LPF Urine Mucus NEGATIVE /LPF Urine Culture Indicated NO Sodium Level 144 135-145 MMOL/L Potassium Level 3.8 3.6-5.0 MMOL/L Chloride Level 99 98-107 MMOL/L Carbon Dioxide Level 36 H 21-32 MMOL/L Anion Gap 9 5-14 MMOL/L Blood Urea Nitrogen 9 7-18 MG/DL Creatinine 0.74 0.60-1.30 MG/DL Estimat Glomerular Filtration Rate > 60 BUN/Creatinine Ratio 12 Glucose Level 134 H 70-105 MG/DL Lactic Acid Level 1.84 0.50-2.00 MMOL/L Calcium Level 9.2 8.5-10.1 MG/DL Corrected Calcium 9.1 8.5-10.1 MG/DL Total Bilirubin 0.3 0.1-1.0 MG/DL Aspartate Amino Transf (AST/SGOT) 22 5-34 U/L Alanine Aminotransferase (ALT/SGPT) 21 0-55 U/L Alkaline Phosphatase 87 40-136 U/L Total Protein 6.8 6.4-8.2 GM/DL Albumin 4.1 3.2-4.5 GM/DL Lipase 12 8-78 U/L Micro Results Microbiology 06/23/19 Influenza Types A,B Antigen (JAMEY) - Final, Complete My Orders Orders - FABIANO LY Influenza A And B Antigens (06/23/19 15:26) Cbc With Automated Diff (06/23/19 15:36) Comprehensive Metabolic Panel (06/23/19 15:36) Blood Culture (06/23/19 15:36) Sputum Culture (06/23/19 15:36) Urinalysis (06/23/19 15:36) Urine Culture (06/23/19 15:36) Protime With Inr (06/23/19 15:36) Partial Thromboplastin Time (06/23/19 15:36) Chest 1 View, Ap/Pa Only (06/23/19 15:36) Ed Iv/Invasive Line Start (06/23/19 15:36) Ed Iv/Invasive Line Start (06/23/19 15:36) Vital Signs Adult Sepsis Patie Q15M (06/23/19 15:36) O2 (06/23/19 15:36) Remove Rings In Anticipation O (06/23/19 15:36) Lactic Acid Analyzer (06/23/19 15:36) Ns Iv 1000 Ml (Sodium Chloride 0.9%) (06/23/19 15:36) Ceftriaxone For Iv Use (Rocephin For I (06/23/19 15:45) Metronidazole 500mg/100ml Ivpb (Flagyl 5 (06/23/19 15:45) Ed Iv/Invasive Line Start (2/18/20 15:36) Ns Iv 500 Ml (Sodium Chloride 0.9%) (06/23/19 15:36) Lipase (06/23/19 15:36) Ct Abdomen/Pelvis W (06/23/19 15:36) Manual Differential (06/23/19 15:39) Ondansetron Injection (Zofran Injectio (06/23/19 16:15) Pantoprazole Injection (Protonix Injecti (06/23/19 16:15) Iohexol Injection (Omnipaque 350 Mg/Ml 1 (06/23/19 16:30) Received Contrast (Hold Metformin- Contr (06/23/19 16:30) Ns (Ivpb) (Sodium Chloride 0.9% Ivpb Bag (06/23/19 16:30) Lidocaine 2% Viscous 15 Ml (Xylocaine Vi (06/23/19 19:15) Antacid Suspension (Mylanta Suspension (06/23/19 19:15) Rx-Ondansetron Po (Rx-Zofran Po) (06/23/19 19:36) Medications Given in ED Current Medications Medications Dose Ordered Sig/Scot Route Start Time Stop Time Status Last Admin Dose Admin Al Hydrox/Mg Hydrox/Simethicone 30 ml ONCE ONCE PO 06/23/19 19:15 06/23/19 19:16 DC 06/23/19 19:16 30 ML Ceftriaxone Sodium 1000 mg/ Sterile Water 10 ml @ 200 mls/hr ONCE ONCE IV 06/23/19 15:45 06/23/19 15:47 DC 06/23/19 16:03 200 MLS/HR Iohexol 100 ml ONCE ONCE IV 06/23/19 16:30 06/23/19 16:39 DC 06/23/19 16:59 100 ML Lidocaine HCl 15 ml ONCE ONCE PO 06/23/19 19:15 06/23/19 19:16 DC 06/23/19 19:16 15 ML Metronidazole 100 ml @ 100 mls/hr ONCE ONCE IV 06/23/19 15:45 06/23/19 16:44 DC 06/23/19 16:03 100 MLS/HR Ondansetron HCl 4 mg ONCE ONCE IVP 06/23/19 16:15 06/23/19 16:16 DC 06/23/19 16:13 4 MG Pantoprazole 40 mg ONCE ONCE IV 06/23/19 16:15 06/23/19 16:16 DC 06/23/19 16:13 40 MG Sodium Chloride 100 ml ONCE ONCE IV 06/23/19 16:30 06/23/19 16:39 DC 06/23/19 16:59 100 ML Sodium Chloride 500 ml @ 0 mls/hr Q0M ONCE IV 06/23/19 15:36 06/23/19 15:44 DC 06/23/19 16:03 500 MLS/HR Vital Signs/I&O 06/23/19 06/23/19 15:18 15:30 Temp 37.2 Pulse 96 Resp 20 B/P (MAP) 144/80 (101) Pulse Ox 97 O2 Delivery Nasal Cannula Nasal Cannula O2 Flow Rate 3.50 3.50 Blood Pressure Mean: 101 Progress Progress Note #1: Time: 16:07 Progress Note Zofran for her nausea. She's declining anything for pain. Adjusted ideal body weight is 154 pounds so we'll give her 1500 cc which is more than 20 mL/kg. Heart rate is elevated white count is elevated and her septic. Suspects something intra-abdominal, diverticulitis/colitis/less likely mesenteric ischemia. She is not chronically a vasculopath. We will obtain urine and a CT with IV contrast if possible of the abdomen and pelvis. Progress Note #2: Time: 19:09 Progress Note Patient is much more comfortable this time. She's had no vomiting after the nausea medicine. She would like to go home. We have offered her a stay in the hospital based on her white count and initial tachycardia however her tachycardia has resolved. She's likely a gastroenteritis and with some nausea medicines she may be able to drink and eat better. She says she has a little bit of burning in her epigastric region so they were some Maalox and then readdress whether she wants to go home and not. Progress Note #3: Time: 19:51 Progress Note Heart rate in the 80s, afebrile 98.5 temperature oral and benign abdominal exam. We again offered her an overnight stay. Put her on Flagyl and Zofran with Phenergan for back up. We'll put her on probiotics. Patient still does not want to stay in the hospital at this time. We've given her return precautions. We have also encouraged her follow-up within the next week with primary care for recheck. Patient is in agreement with this plan. Diagnostic Imaging Diagonstic Imaging: Xray Plain Films/CT/US/NM/MRI: chest (1 view) Comments [facility] [place], [place] NAME: [facility] REC#: [id number] PT STATUS: REG ER : 1945 PHYSICIAN: FABIANO LY MD ADMIT DATE: 06/23/19/ER Signed Date of Exam:06/23/19 CHEST 1 VIEW, AP/PA ONLY Indication: Nausea vomiting and diarrhea x1 week Portable chest 3:54 PM Heart size and pulmonary vascularity are normal. Lungs are clear. There are no effusions or pneumothoraces. IMPRESSION: Negative chest Dictated by: Dictated on workstation # [id number] Dict: 06/23/19 1606 Trans: 06/23/19 1606 [id number] Interpreted by: KLEVER YO MD Electronically signed by: KLEVER YO MD 06/23/19 1606 Reviewed: Reviewed by Me Diagonstic Imaging: CT (with IV contrast) Plain Films/CT/US/NM/MRI: abdomen, pelvis Comments NAME: [facility] REC#: [id number] PT STATUS: REG ER : 1945 PHYSICIAN: FABIANO LY MD ADMIT DATE: 06/23/19/ER Draft Date of Exam:06/23/19 CT ABDOMEN/PELVIS W INDICATION: Abdominal pain and nausea, vomiting, and diarrhea. TECHNIQUE: Multiple contiguous axial images were obtained through the abdomen and pelvis after administration of intravenous contrast. Auto Exposure Controls were utilized during the CT exam to meet ALARA standards for radiation dose reduction. COMPARISON: Comparison made to 01/13/2018. FINDINGS: Visualized portions of the lung bases demonstrate COPD changes with prominent bulla in the left lung base, similar to the prior study. There is no pleural fluid or free intraperitoneal air. The liver shows diffuse low-density change, compatible with fatty infiltration. The gallbladder is absent. There is an enhancing lesion, compatible with small hemangioma in the left lobe of the liver, which appears stable compared to the prior study measuring about 1.4 cm. The spleen, adrenals, and pancreas appear normal. A small hiatal hernia is noted. The kidneys bilaterally appear unremarkable. There is no retroperitoneal mass or adenopathy. There is no ascites or abnormal fluid collection. There is minimal fat-containing periumbilical hernia. There are uncomplicated clonic diverticula. There are a few scattered fluid levels in the small bowel which may represent mild gastroenteritis. There is no sign of bowel obstruction. IMPRESSION: Findings compatible with fatty change in the liver, similar to the prior study. Small probable hemangioma in the left lobe liver is stable. There is a small hiatal hernia. There is COPD change. There is uncomplicated colonic diverticulosis. There are a few scattered fluid-filled loops of small bowel which may represent mild gastroenteritis, but no sign of obstruction. Dictated on workstation # [id number] Dict: 06/23/19 1758 Trans: 06/23/19 1805 [id number] Interpreted by: LISA CHUNG MD Electronically signed by: Reviewed: Reviewed by Me Departure Impression Primary Impression: Gastroenteritis Disposition: 01 HOME, SELF-CARE Condition: Improved Departure-Patient Inst. Decision time for Depature: 19:27 Referrals: SVEN VIGIL MD (PCP) Primary Care Physician RIO AHUMADA (Family) Primary Care Physician JANETTE NDIAYE DO Patient Instructions: Viral Gastroenteritis, Adult (DC) Add. Discharge Instructions: Flagyl 1 capsule 3 times a day for the next week. Tylenol 1000 mg every 8 hours as needed for pain. Zofran/ondansetron 1 tablet every 6 hours as needed for nausea or vomiting. Phenergan 1 tablet every 6 hours as needed for nausea or vomiting not controlled by Zofran. Take probiotics one capsule twice a day for the next 10 days. Follow-up with your primary care doctor in the next week. Return to the ER if you begin to have worsening pain or uncontrollable nausea, fever or other worrisome symptoms. If you cannot keep up with your fluid intake then you should return to the ER as well. He may follow-up with Dr. Ndiaye, General Surgery outpatient for endoscopy if indicated. All discharge instructions reviewed with patient and/or family. Voiced understanding. Scripts Promethazine HCl (Promethazine Tablet) 25 Mg Tablet 25 MG PO Q6H PRN for NAUSEA/VOMITING-2ND LINE, #10 TAB 0 Refills Prov: FABIANO LY 06/23/19 Ondansetron (Ondansetron Odt) 4 Mg Tab.rapdis 4 MG PO Q6H PRN for NAUSEA/VOMITING, #20 TAB 0 Refills Prov: FABIANO LY 06/23/19 L.acidoph & Paracasei,B.lactis (Probiotic) 1 Each Capsule 1 EACH PO BID for 10 Days, #20 CAP 0 Refills Prov: FABIANO LY 06/23/19 Metronidazole (Flagyl) 500 Mg Tablet 500 MG PO TID for 7 Days, #21 TAB 0 Refills Prov: FABIANO LY 06/23/19 FABIANO LY Jun 23, 2019 16:03
[2019-06-23 16:07] LABS: BACTERIA,URINE NEGATIVE /HPF; RBC,URINE RARE /HPF
--- NOTE | 2019-06-23 16:07 | Diagnostic Imaging Report ---
Indication: Nausea vomiting and diarrhea x1 week Portable chest 3:54 PM Heart size and pulmonary vascularity are normal. Lungs are clear. There are no effusions or pneumothoraces. IMPRESSION: Negative chest Dictated by: Dictated on workstation # [id number]
[2019-06-23 16:10] LABS: PROTHROMBIN TIME PATIENT 13.5 SEC (12.2-14.7)
[2019-06-23 16:15] LABS: ALANINE AMINOTRANSFERASE 21 U/L (0-55); ALBUMIN 4.1 GM/DL (3.2-4.5); ALKALINE PHOSPHATASE 87 U/L (40-136); BILIRUBIN,TOTAL 0.3 MG/DL (0.1-1.0); BUN/CREATININE RATIO 12; CALCIUM 9.2 MG/DL (8.5-10.1); CARBON DIOXIDE 36 MMOL/L (21-32); CHLORIDE 99 MMOL/L (98-107); CREATININE SERUM 0.74 MG/DL (0.60-1.30); GFR ESTIMATED > 60; GLUCOSE 134 MG/DL (70-105); LIPASE 12 U/L (8-78); POTASSIUM 3.8 MMOL/L (3.6-5.0); SODIUM 144 MMOL/L (135-145); TOTAL PROTEIN 6.8 GM/DL (6.4-8.2)
[2019-06-23] MEDS ORDERED: ONDANSETRON 4 MG/2 ML (SDV) Z0FRAN IVP ONE (16:15)
[2019-06-23] MEDS ORDERED: PANTOPRAZOLE 40 MG (PROTONIX) VIAL IV ONE (16:15)
[2019-06-23 16:19] LABS: LYMPHOCYTES % (MANUAL) 5 %; MONOCYTES % (MANUAL) 3 %; NEUTROPHILS % (MANUAL) 92 %
[2019-06-23 16:20] LABS: ANISOCYTOSIS SLIGHT
[2019-06-23] MEDS ORDERED: IOHEXOL 350 MG/ML 100 ML (OMNIPAQUE 350) VIAL IV ONE (16:30)
[2019-06-23] MEDS ORDERED: HOLD METFORMIN - RECEIVED CONTRAST 20 ML VIAL IV SCH (16:30)
[2019-06-23] MEDS ORDERED: NS 100 ML (IVPB) BAG IV ONE (16:30)
--- NOTE | 2019-06-23 18:06 | Diagnostic Imaging Report ---
INDICATION: Abdominal pain and nausea, vomiting, and diarrhea. TECHNIQUE: Multiple contiguous axial images were obtained through the abdomen and pelvis after administration of intravenous contrast. Auto Exposure Controls were utilized during the CT exam to meet ALARA standards for radiation dose reduction. COMPARISON: Comparison made to 01/13/2018. FINDINGS: Visualized portions of the lung bases demonstrate COPD changes with prominent bulla in the left lung base, similar to the prior study. There is no pleural fluid or free intraperitoneal air. The liver shows diffuse low-density change, compatible with fatty infiltration. The gallbladder is absent. There is an enhancing lesion, compatible with small hemangioma in the left lobe of the liver, which appears stable compared to the prior study measuring about 1.4 cm. The spleen, adrenals, and pancreas appear normal. A small hiatal hernia is noted. The kidneys bilaterally appear unremarkable. There is no retroperitoneal mass or adenopathy. There is no ascites or abnormal fluid collection. There is minimal fat-containing periumbilical hernia. There are uncomplicated clonic diverticula. There are a few scattered fluid levels in the small bowel which may represent mild gastroenteritis. There is no sign of bowel obstruction. IMPRESSION: Findings compatible with fatty change in the liver, similar to the prior study. Small probable hemangioma in the left lobe liver is stable. There is a small hiatal hernia. There is COPD change. There is uncomplicated colonic diverticulosis. There are a few scattered fluid-filled loops of small bowel which may represent mild gastroenteritis, but no sign of obstruction. Dictated by: Dictated on workstation # [id number]
[2019-06-23] MEDS ORDERED: ANTACID SUSP 30 ML UDC (MYLANTA) PO ONE (19:15)
[2019-06-23] MEDS ORDERED: LIDOCAINE 2% VISCOUS 15 ML UDC PO ONE (19:15)
[2019-06-23] MEDS ORDERED: PROM25TA14 PO (19:35)
[2019-06-23] MEDS ORDERED: METR500T PO (19:35)
[2019-06-23] MEDS ORDERED: L.AC1CAP6 PO (19:35)
[2019-06-23] MEDS ORDERED: ONDA4TAB11 PO (19:35)
[2019-06-23] MEDS ORDERED: RX-ONDANSETRON 4 MG ODT (ZOFRAN) PPK #4 PO STA (19:36)
[2019-06-23 19:47] VITALS: BP 153/79
[2019-06-26] MEDS ORDERED: OMNICEF PO (11:32)
== END 2019-06-23 19:51 | disposition home or self-care (01) ==
LOC: EDUNIT# 14:56 → ER 14:57
DX: K52.9 Noninfective gastroenteritis and colitis, unspecified (principal); K58.9 Irritable bowel syndrome, unspecified; J44.9 Chronic obstructive pulmonary disease, unspecified; I10 Essential (primary) hypertension; K21.9 Gastro-esophageal reflux disease without esophagitis; Z90.49 Acquired absence of other specified parts of digestive tract; Z99.81 Dependence on supplemental oxygen; Z87.891 Personal history of nicotine dependence
CPT/HCPCS: 36415; 71045; 74177; 80053; 81000; 83605; 83690; 85007; 85027; 85610; 85730; 87040; 87077; 87088; 87186; 87804

== ENCOUNTER 2022-03-19 11:40 | Outpatient (CLI) | payer MEDICARE, MEDICAID ==
[~2022-03-19] VITALS: Ht 162.6 cm; Wt 90.3 kg
[~2022-03-19 11:40] MED LIST changes: +ALBU8.5H6 IH; +AMLO-250 PO; -AMLO5TAB9 PO; +L.AC1CAP6 PO; -LISI1TAB29 PO; +LISI1TAB44 PO; +OMNICEF PO; +ONDA4TAB11 PO; -OXYC-471 PO; +OXYC1TAB11 PO; -PANT40TA3 PO; +PANT40TA52 PO; +PROM25TA14 PO; -RT-ALBUINH IH
== END 2022-03-19 11:55 | disposition home or self-care (01) ==
LOC: PREOP 11:40
PROVIDERS: ATTEND Surgery
DX: Z01.818 Encounter for other preprocedural examination (principal)

== ENCOUNTER 2022-04-03 12:12 | Day surgery (SDC) | payer MEDICARE, MEDICAID ==
[~2022-04-03] VITALS: Ht 162.6 cm; Wt 90.3 kg
[2022-04-03] MEDS ORDERED: LACTATED RINGERS 1,000 ML IV STA (12:26)
[2022-04-03] MEDS ORDERED: HURRICAINE EXT TUBE (BENZOCAINE) XX PRN (12:30)
[2022-04-03 12:45] VITALS: BP 150/56
[2022-04-03] MEDS ORDERED: LACTATED RINGERS 1,000 ML IV PRN ×2 (12:45→13:00)
[2022-04-03] MEDS ORDERED: fentaNYL INJ 100 MCG/2 ML AMP IV ONE ×2 (12:45)
[2022-04-03] MEDS ORDERED: ONDANSETRON 4 MG/2 ML (SDV) Z0FRAN IV ONE ×2 (12:45)
[2022-04-03] MEDS ORDERED: ONDANSETRON 4 MG/2 ML (SDV) Z0FRAN ONE (12:53)
[2022-04-03] MEDS ORDERED: fentaNYL INJ 100 MCG/2 ML AMP ONE (12:55)
[2022-04-03] MEDS ORDERED: PROPOFOL INJECTION 50 ML IV ONE (13:26)
[2022-04-03] MEDS ORDERED: KETAMINE 50 MG/5 ML SYRINGE ONE (13:26)
--- NOTE | 2022-04-03 14:10 | Discharge Inst-Simple/Standard ---
Discharge Inst-Standard Patient Instructions/Follow Up Plan of Care/Instructions/FU: Follow up with Dr. Smith in 2 weeks. Activity as Tolerated: Yes Discharge Diet: No Restrictions, Regular Diet, Other Diet (high fiber) JANETTE SMITH DO Apr 03, 2022 14:10
[2022-04-03 14:17] VITALS: BP 110/51
[2022-04-03 14:20] VITALS: BP 110/51
--- NOTE | 2022-04-03 14:35 | Anesthesia-General Post-Op ---
MAC Patient Condition Mental Status/LOC: Same as Preop Cardiovascular: Satisfactory Nausea/Vomiting: Absent Respiratory: Satisfactory Pain: Controlled Complications: Absent Post Op Complications Complications None Follow Up Care/Instructions Patient Instructions None needed. Anesthesiology Discharge Order Discharge Order Patient is doing well, no complaints, stable vital signs, no apparent adverse anesthesia problems. No complications reported per nursing. TANYA JUNIOR DO Apr 03, 2022 14:35
[2022-04-03 14:45] VITALS: BP 131/52
[2022-04-03 15:05] VITALS: BP 131/52
--- NOTE | 2022-04-04 02:15 | OPERATIVE REPORT ---
DATE OF SERVICE: 04/03/2022 PREOPERATIVE DIAGNOSES: Change in bowel function, GERD, history of polyps. POSTOPERATIVE DIAGNOSES: Reflux esophagitis, small hiatal hernia, colon polyps, diverticulosis. PROCEDURE: EGD with biopsies, colonoscopy with hot biopsy polypectomy x2 and snare polypectomy x2. SURGEON: Janette Smith DO ANESTHESIA: Per . ESTIMATED BLOOD LOSS: None. COMPLICATIONS: None. INDICATIONS: The patient is a 76-year-old female having worsening GERD symptoms and having change in bowel function. She understands the risks and benefits of procedure and wishes to proceed. Consent was signed and in chart. DESCRIPTION OF PROCEDURE: The patient was taken to endoscopy suite, placed in left lateral recumbent position. A timeout was performed. Scope was inserted into the mouth, down the esophagus, stomach and into the duodenum without difficulty. There was no polyps, masses or ulcerations in the duodenum. Scope was then retracted back. The stomach was further insufflated. Slight mucosal change of the stomach with benign appearance. No masses or ulcerations. A biopsy of the antrum was obtained. Scope was retroflexed noting small hiatal hernia. No other pathology. Scope was returned to its normal position, slowly withdrawn to the distal esophagus. Biopsy of the GE junction was obtained with some changes of reflux esophagitis present. Scope was slowly retracted back to completely remove, noting no other pathology. Digital rectal exam was performed. No palpable polyps, masses or ulcerations. Scope was inserted into the rectum and advanced all the way to the cecum with minimal difficulty. Prep was adequate. Scope was slowly retracted back. No polyps, masses or ulcerations in the cecum and ascending colon. In the transverse colon, a polyp was present, hot biopsy polypectomy was performed. Scope was then continued slowly retracted back and in the descending colon where another polyp was present, which hot biopsy polypectomy was performed. The scope was then continued slowly retracted back to the descending colon, which had another polyp, which snare polypectomy was performed. Scope was then continued slowly retracted back noting some moderate diverticulosis in the sigmoid colon. Also, a polyp was present, which snare polypectomy was performed. Scope was then continuously retracted back into the rectum, where it was also retroflexed noting no other pathology. Scope was returned to its normal position, slowly withdrawn to completely remove. The patient tolerated the procedure well with no complications. She was taken to recovery room in stable condition. RECOMMENDATIONS: The patient will follow up in 2 weeks to discuss pathology results. I will continue on current medications. Would repeat colonoscopy on an needed basis. I would recommend a high-fiber diet due to diverticulosis. Job ID: [id number] DocumentID: [id number] Dictated Date: 04/03/2022 14:13:41 Fisheries Officer Date: 04/04/2022 02:13:00 Dictated By: JANETTE SMITH DO
== END 2022-04-03 15:05 | disposition home or self-care (01) ==
LOC: ENDO 12:12
PROVIDERS: ATTEND Surgery
DX: D12.3 Benign neoplasm of transverse colon (principal); D12.4 Benign neoplasm of descending colon; D12.5 Benign neoplasm of sigmoid colon; K57.30 Diverticulosis of large intestine without perforation or abscess without bleeding; K21.00 Gastro-esophageal reflux disease with esophagitis, without bleeding; K44.9 Diaphragmatic hernia without obstruction or gangrene; E66.9 Obesity, unspecified; Z87.891 Personal history of nicotine dependence; Z68.34 Body mass index [BMI] 34.0-34.9, adult
CPT/HCPCS: 88305